=== PATIENT | female | born 1955 | race African-American/Black ===

== ENCOUNTER 2016-12-17 11:42 | Emergency (ER) | payer OTHER, MEDICAID ==
[~2016-12-17] VITALS: Ht 154.9 cm; Wt 109.8 kg
[~2016-12-17 11:42] MED LIST: ATOR10TA PO; CARI-277 PO; CARV25TA55 PO; CINA60TA PO; DOXE50CA57 PO; LEVO200T45 PO; NOR10T PO; PANT40TA2 PO; QUET100T38 PO; SEVE800T8 PO; TRIA25CA PO; [UNRECOGNIZED DRUG - OTHER]
[2016-12-17 11:53] VITALS: BP 113/73
[2016-12-17] MEDS ORDERED: KETOROLAC TROMETH 60MG/2ML VIAL IM ONE (15:15)
[2016-12-17] MEDS ORDERED: FLUORESCEIN SOD 1 MG TEST STRIP LEFTEYE ONE (16:00)
== END 2016-12-17 16:20 | disposition home or self-care (01) ==
LOC: ER 11:42
DX: G89.29 Other chronic pain (principal); M54.5 Low back pain; R07.81 Pleurodynia; M19.90 Unspecified osteoarthritis, unspecified site; E11.22 Type 2 diabetes mellitus with diabetic chronic kidney disease; I13.2 Hypertensive heart and chronic kidney disease with heart failure and with stage 5 chronic kidney disease, or end stage renal disease; I50.9 Heart failure, unspecified; N18.6 End stage renal disease; Z99.2 Dependence on renal dialysis; J44.9 Chronic obstructive pulmonary disease, unspecified; E78.5 Hyperlipidemia, unspecified; E07.9 Disorder of thyroid, unspecified; Z79.899 Other long term (current) drug therapy
CPT/HCPCS: 71101; 93005; 96372; 99284; J1885

== ENCOUNTER 2017-07-13 09:15 | Inpatient (IN) | payer OTHER, MEDICAID ==
[~2017-07-13] VITALS: Ht 162.6 cm; Wt 100.7 kg
[2017-07-13 19:59] LABS: Basophils # (auto) 0 uL; Basophils % (auto) 0.4 % (0.0-2.0); Eosinophils # (auto) 0.3 uL; Eosinophils % (auto) 4.3 % (0.0-7.0); Hemoglobin 8.8 g/dL (12.2-16.2); Lymphocytes # (auto) 2.4 uL; Lymphocytes % (auto) 38.1 % (10.0-50.0); Mean Corpuscular Hemoglobin 31.6 pg (28.0-32.0); Mean Corpuscular Hgb Conc. 31.6 g/dL (32.0-36.0); Monocytes # (auto) 0.8 uL; Monocytes % (auto) 12.8 % (0.0-12.0); Neutrophils # (auto) 2.8 uL; Neutrophils % (auto) 44.4 % (37.0-80.0); Nucleated Red Blood Cells % 0.1 %; Platelet Count (auto) 201 10^3/uL (140-450); Red Cell Distribution Width 18.2 % (11.8-14.3); White Blood Cell 6.3 10^3/uL (4.4-10.8)
[2017-07-13 20:22] LABS: Albumin 2.6 g/dL (3.4-5.0); Bilirubin, Total 0.2 mg/dL (0.2-1.0); Calcium 9.1 mg/dL (8.5-10.1); Potassium 3.6 mmol/L (3.5-5.1); Total Protein 6.3 g/dL (6.4-8.2)
[2017-07-13] MEDS ORDERED: HYDROcodone-ACET 10/325MG TAB PO ONE (21:15)
[2017-07-14] VITALS (7 sets, daily range): BP systolic 110–146; BP diastolic 61–95
[2017-07-14] MEDS ORDERED: ACETAMINOPHEN 500 MG TAB PO PRN
[2017-07-14] MEDS ORDERED: ONDANSETRON HCL 4 MG/2 ML VIAL IV PRN
[2017-07-14] MEDS ORDERED: QUET25TA37 PO (00:34)
[2017-07-14] MEDS ORDERED: FAM20T PO (00:42)
[2017-07-14] MEDS ORDERED: ALPR0.5T PO (00:42)
[2017-07-14] MEDS ORDERED: LISI-646 PO (00:42)
[2017-07-14] MEDS ORDERED: MIDO10TA PO (00:42)
[2017-07-14] MEDS ORDERED: DOCU-94 PO (00:42)
[2017-07-14] MEDS ORDERED: SEVE800T PO (00:42)
[2017-07-14] MEDS: ALPRAZolam 0.5 MG TAB PO PRN ×2 (01:07→11:05)
[2017-07-14] MEDS: HYDROmorphone HCL 2 MG/ML VL IV PRN ×5 (02:18→19:54)
[2017-07-14] MEDS: SEVELAMER 800 MG TAB PO SCH ×3 (08:35→18:02)
[2017-07-14] MEDS: HYDROcodone-ACET 5/325MG TAB PO PRN ×3 (08:39→21:54)
[2017-07-14] MEDS ORDERED: EPOETIN ALFA 10,000 UNIT/1 ML VIAL IV ONE (09:30)
[2017-07-14] MEDS ORDERED: SODIUM CHL 0.9% 1000 ML BAG XX ONE (09:30)
[2017-07-14 10:18] LABS: Partial Thromboplastin Time 26.1 sec (22.64-33.71); Prothrombin Time 10.9 sec (9.37-12.3)
[2017-07-14] MEDS: LISINOPRIL 20 MG TAB PO SCH (10:57)
[2017-07-14] MEDS: MIDODRINE HCL 10 MG TAB PO SCH (10:58)
[2017-07-14] MEDS: PANTOPRAZOLE 40 MG TAB PO SCH (10:58)
[2017-07-14] MEDS: CARVEDILOL 12.5 MG TAB PO SCH ×2 (10:59→21:48)
[2017-07-14] MEDS ORDERED: VANCOMYCIN 1GM/250ML 250 ML IV ONE (14:15)
[2017-07-14] MEDS: QUEtiapine FUMARATE 25 MG TAB PO SCH (21:48)
[2017-07-15 05:03] VITALS: BP 126/79
[2017-07-15] MEDS: HYDROmorphone HCL 2 MG/ML VL IV PRN ×4 (06:25→22:44)
[2017-07-15 07:13] LABS: Basophils # (auto) 0 uL; Basophils % (auto) 0.7 % (0.0-2.0); Eosinophils # (auto) 0.2 uL; Eosinophils % (auto) 4.1 % (0.0-7.0); Hematocrit 25.9 % (36.0-46.0); Hemoglobin 8.5 g/dL (12.2-16.2); Lymphocytes # (auto) 1.8 uL; Lymphocytes % (auto) 33.9 % (10.0-50.0); Mean Corpuscular Hemoglobin 32.2 pg (28.0-32.0); Mean Corpuscular Hgb Conc. 32.9 g/dL (32.0-36.0); Mean Corpuscular Volume 97.8 fL (80.0-100.0); Monocytes # (auto) 0.8 uL; Monocytes % (auto) 14.4 % (0.0-12.0); Neutrophils # (auto) 2.4 uL; Neutrophils % (auto) 46.9 % (37.0-80.0); Platelet Count (auto) 179 10^3/uL (140-450); Red Blood Cells 2.65 10^6/uL (4.0-5.20); White Blood Cell 5.2 10^3/uL (4.4-10.8)
[2017-07-15 07:26] LABS: BUN/Creatinine Ratio 3.2; Calcium 9.2 mg/dL (8.5-10.1); Phosphorus 4.4 mg/dL (2.5-4.90); Potassium 3.6 mmol/L (3.5-5.1)
[2017-07-15] MEDS: SEVELAMER 800 MG TAB PO SCH ×3 (08:00→19:02)
[2017-07-15] MEDS: HYDROcodone-ACET 5/325MG TAB PO PRN (08:27)
[2017-07-15 09:00] VITALS: BP 147/70
[2017-07-15] MEDS ORDERED: fentaNYL CITRATE 100 MCG/2 ML VL ONE ×4 (09:52→13:39)
[2017-07-15] MEDS ORDERED: MIDAZOLAM HCL 1MG/1ML-2 ML VIAL ONE (09:53)
[2017-07-15] MEDS ORDERED: IOHEXOL 350 MG/ML 100ML IJ ONE ×2 (09:54→11:55)
[2017-07-15] MEDS ORDERED: LIDOCAINE 2%HCL (LOCAL ANESTH.) INJ 20ML MDV ONE ×2 (09:54→11:55)
[2017-07-15] MEDS ORDERED: CATHFLO ACTIVASE (ALTEPLASE) 2 MG VIAL IV ONE ×3 (10:15→13:45)
[2017-07-15] MEDS ORDERED: PROPOFOL 10 MG/ML 20 ML IV ONE (12:36)
[2017-07-15] MEDS ORDERED: SODIUM CHL 0.9% 1000 ML BAG XX ONE (12:45)
[2017-07-15] MEDS ORDERED: EPOETIN ALFA 10,000 UNIT/1 ML VIAL IV ONE (12:45)
[2017-07-15] MEDS ORDERED: HEPARIN 1,000 UNITS/ml 1ML VIAL ONE ×2 (12:58→13:59)
[2017-07-15] MEDS ORDERED: HYDROmorphone HCL 2 MG/ML VL ONE (14:50)
[2017-07-15] MEDS ORDERED: hydrALAZINE HCL 20 MG/ML VL IV PRN (15:00)
[2017-07-15] MEDS ORDERED: ePHEDrine SULFATE 50 MG/ML AMP IV PRN (15:00)
[2017-07-15] MEDS ORDERED: ONDANSETRON HCL 4 MG/2 ML VIAL IV ONE (15:00)
[2017-07-15] MEDS: CARVEDILOL 12.5 MG TAB PO SCH ×2 (16:31→22:44)
[2017-07-15] MEDS: PANTOPRAZOLE 40 MG TAB PO SCH (16:32)
[2017-07-15] MEDS: MIDODRINE HCL 10 MG TAB PO SCH (16:32)
[2017-07-15] MEDS: LISINOPRIL 20 MG TAB PO SCH (16:32)
[2017-07-15] MEDS: ASCORBIC ACID 500 MG TAB PO SCH ×2 (16:33→22:43)
[2017-07-15] MEDS: B-COMPLEX W/ C & FOLIC ACID(NEPHROVITE TAB) PO SCH (16:33)
[2017-07-15 17:00] VITALS: BP 139/71
[2017-07-15 20:00] VITALS: BP 148/71
[2017-07-15 22:17] VITALS: BP 117/50
[2017-07-15] MEDS: QUEtiapine FUMARATE 25 MG TAB PO SCH (22:43)
[2017-07-16] VITALS (7 sets, daily range): BP systolic 119–145; BP diastolic 65–88
[2017-07-16] MEDS: HYDROmorphone HCL 2 MG/ML VL IV PRN ×4 (04:48→20:29)
[2017-07-16 07:18] LABS: BUN/Creatinine Ratio 3.6; Calcium 9.4 mg/dL (8.5-10.1); Potassium 3.9 mmol/L (3.5-5.1)
[2017-07-16] MEDS: SEVELAMER 800 MG TAB PO SCH ×3 (08:41→18:34)
[2017-07-16] MEDS: MIDODRINE HCL 10 MG TAB PO SCH (10:48)
[2017-07-16] MEDS: CARVEDILOL 12.5 MG TAB PO SCH ×2 (10:48→22:15)
[2017-07-16] MEDS: B-COMPLEX W/ C & FOLIC ACID(NEPHROVITE TAB) PO SCH (10:48)
[2017-07-16] MEDS: PANTOPRAZOLE 40 MG TAB PO SCH (10:49)
[2017-07-16] MEDS: ASCORBIC ACID 500 MG TAB PO SCH ×2 (10:49→22:14)
[2017-07-16] MEDS: LISINOPRIL 20 MG TAB PO SCH (10:50)
[2017-07-16] MEDS: DOCUSATE SOD 100 MG CAP PO SCH ×2 (13:40→22:14)
[2017-07-16] MEDS: HYDROcodone-ACET 5/325MG TAB PO PRN ×2 (16:32→22:19)
[2017-07-16] MEDS: QUEtiapine FUMARATE 25 MG TAB PO SCH (22:14)
[2017-07-17] VITALS (7 sets, daily range): BP systolic 113–152; BP diastolic 69–92
[2017-07-17] MEDS: HYDROmorphone HCL 2 MG/ML VL IV PRN ×4 (03:58→21:44)
[2017-07-17] MEDS: SEVELAMER 800 MG TAB PO SCH ×3 (08:19→18:46)
[2017-07-17] MEDS: B-COMPLEX W/ C & FOLIC ACID(NEPHROVITE TAB) PO SCH (09:35)
[2017-07-17] MEDS: DOCUSATE SOD 100 MG CAP PO SCH ×2 (09:35→21:43)
[2017-07-17] MEDS: MIDODRINE HCL 10 MG TAB PO SCH (09:35)
[2017-07-17] MEDS: CARVEDILOL 12.5 MG TAB PO SCH ×2 (09:35→21:44)
[2017-07-17] MEDS: LISINOPRIL 20 MG TAB PO SCH (09:36)
[2017-07-17] MEDS: ASCORBIC ACID 500 MG TAB PO SCH ×2 (09:36→21:43)
[2017-07-17] MEDS: PANTOPRAZOLE 40 MG TAB PO SCH (09:36)
[2017-07-17] MEDS: ALPRAZolam 0.5 MG TAB PO PRN (16:52)
[2017-07-17] MEDS: QUEtiapine FUMARATE 25 MG TAB PO SCH (21:43)
[2017-07-18] MEDS: HYDROmorphone HCL 2 MG/ML VL IV PRN ×4 (02:56→23:20)
[2017-07-18 05:00] VITALS: BP 119/69
[2017-07-18 06:55] LABS: Calcium 9.4 mg/dL (8.5-10.1)
[2017-07-18 07:00] LABS: INR 0.94 (0.9-1.15); Partial Thromboplastin Time 24.7 sec (22.64-33.71); Prothrombin Time 10.2 sec (9.37-12.3)
[2017-07-18] MEDS: SEVELAMER 800 MG TAB PO SCH ×3 (08:00→18:18)
[2017-07-18 08:04] VITALS: BP 109/72
[2017-07-18] MEDS: LISINOPRIL 20 MG TAB PO SCH (09:40)
[2017-07-18] MEDS: PANTOPRAZOLE 40 MG TAB PO SCH (09:40)
[2017-07-18] MEDS: MIDODRINE HCL 10 MG TAB PO SCH (09:41)
[2017-07-18] MEDS: B-COMPLEX W/ C & FOLIC ACID(NEPHROVITE TAB) PO SCH (09:41)
[2017-07-18] MEDS: CARVEDILOL 12.5 MG TAB PO SCH ×2 (09:41→21:57)
[2017-07-18] MEDS: DOCUSATE SOD 100 MG CAP PO SCH ×2 (09:41→21:56)
[2017-07-18] MEDS: ASCORBIC ACID 500 MG TAB PO SCH ×2 (09:42→21:56)
[2017-07-18 11:45] VITALS: BP 135/80
[2017-07-18 16:57] VITALS: BP 160/89
[2017-07-18 20:00] VITALS: BP 149/90
[2017-07-18] MEDS: QUEtiapine FUMARATE 25 MG TAB PO SCH (21:57)
[2017-07-18 22:00] VITALS: BP 149/90
[2017-07-19] MEDS: HYDROmorphone HCL 2 MG/ML VL IV PRN ×3 (04:14→22:43)
[2017-07-19 05:00] VITALS: BP 136/76
[2017-07-19 07:56] VITALS: BP 158/87
[2017-07-19] MEDS: SEVELAMER 800 MG TAB PO SCH ×3 (08:00→19:01)
[2017-07-19 09:37] LABS: Basophils # (auto) 0.1 uL; Basophils % (auto) 1.6 % (0.0-2.0); Eosinophils # (auto) 0.2 uL; Mean Corpuscular Volume 96.9 fL (80.0-100.0); Monocytes # (auto) 1.1 uL; Red Cell Distribution Width 17.7 % (11.8-14.3)
[2017-07-19 09:39] LABS: Hematocrit 25.6 % (36.0-46.0); Hemoglobin 8.5 g/dL (12.2-16.2); Lymphocytes # (auto) 1.7 uL; Lymphocytes % (auto) 25.2 % (10.0-50.0); Monocytes % (auto) 16.5 % (0.0-12.0); Neutrophils # (auto) 3.7 uL; Neutrophils % (auto) 53.7 % (37.0-80.0); Platelet Count (auto) 205 10^3/uL (140-450); Red Blood Cells 2.65 10^6/uL (4.0-5.20); White Blood Cell 6.9 10^3/uL (4.4-10.8)
[2017-07-19] MEDS: CARVEDILOL 12.5 MG TAB PO SCH ×2 (09:50→22:42)
[2017-07-19] MEDS: LISINOPRIL 20 MG TAB PO SCH (09:51)
[2017-07-19] MEDS: PANTOPRAZOLE 40 MG TAB PO SCH (10:00)
[2017-07-19] MEDS: B-COMPLEX W/ C & FOLIC ACID(NEPHROVITE TAB) PO SCH (10:00)
[2017-07-19] MEDS: ASCORBIC ACID 500 MG TAB PO SCH ×2 (10:00→22:43)
[2017-07-19] MEDS: DOCUSATE SOD 100 MG CAP PO SCH ×2 (10:00→22:41)
[2017-07-19] MEDS: MIDODRINE HCL 10 MG TAB PO SCH (10:00)
[2017-07-19] MEDS: ALPRAZolam 0.5 MG TAB PO PRN (11:31)
[2017-07-19 11:34] VITALS: BP 118/77
[2017-07-19] MEDS ORDERED: MIDAZOLAM HCL 1MG/1ML-2 ML VIAL ONE ×3 (13:16→13:43)
[2017-07-19] MEDS ORDERED: METOCLOPRAMIDE HCL 5MG/ml INJ 2ml VIAL ONE (13:27)
[2017-07-19] MEDS ORDERED: PROPOFOL 10 MG/ML 20 ML IV ONE (13:30)
[2017-07-19] MEDS ORDERED: HEPARIN SODIUM (PORCINE) 5000 UNITS/ML 1ML VIAL ONE ×2 (13:31→14:08)
[2017-07-19] MEDS ORDERED: LIDOCAINE 1% HCL (LOCAL ANESTH.) INJ 20ML MDV ONE ×2 (13:35→14:14)
[2017-07-19] MEDS ORDERED: fentaNYL CITRATE 100 MCG/2 ML VL ONE (13:38)
[2017-07-19] MEDS ORDERED: ceFAZolin 1GM VL ONE (13:40)
[2017-07-19] MEDS ORDERED: FLUMAZENIL 0.1 MG/ML INJ 10ML MDV IV ONE (14:45)
[2017-07-19] MEDS ORDERED: NALOXONE HCL 0.4 MG/ML VIAL IV PRN (14:45)
[2017-07-19] MEDS ORDERED: hydrALAZINE HCL 20 MG/ML VL IV PRN (14:45)
[2017-07-19] MEDS: HYDROcodone-ACET 5/325MG TAB PO PRN (15:28)
[2017-07-19 16:54] VITALS: BP 167/93
[2017-07-19] MEDS ORDERED: HEPARIN 1,000 UNITS/ml 1ML VIAL IV ONE (20:30)
[2017-07-19] MEDS ORDERED: EPOETIN ALFA 10,000 UNIT/1 ML VIAL IV ONE (20:30)
[2017-07-19 22:00] VITALS: BP 135/95
[2017-07-19] MEDS: QUEtiapine FUMARATE 25 MG TAB PO SCH (22:42)
[2017-07-20] MEDS: HYDROmorphone HCL 2 MG/ML VL IV PRN ×3 (02:47→13:09)
[2017-07-20 05:00] VITALS: BP 115/68
[2017-07-20 07:57] VITALS: BP 122/62
[2017-07-20] MEDS: SEVELAMER 800 MG TAB PO SCH ×2 (09:00→13:11)
[2017-07-20] MEDS: B-COMPLEX W/ C & FOLIC ACID(NEPHROVITE TAB) PO SCH (09:30)
[2017-07-20] MEDS: ASCORBIC ACID 500 MG TAB PO SCH (09:30)
[2017-07-20] MEDS: DOCUSATE SOD 100 MG CAP PO SCH (09:30)
[2017-07-20] MEDS: MIDODRINE HCL 10 MG TAB PO SCH (09:31)
[2017-07-20] MEDS: PANTOPRAZOLE 40 MG TAB PO SCH (09:31)
[2017-07-20] MEDS: LISINOPRIL 20 MG TAB PO SCH (09:31)
[2017-07-20] MEDS: CARVEDILOL 12.5 MG TAB PO SCH (09:32)
[2017-07-20 11:50] VITALS: BP 102/49
== END 2017-07-20 16:09 | DRG 252 ==
LOC: EDBD 09:15 → ER 09:15 → OVERFLOW 09:16 → EAST 07-14 01:13
PROVIDERS: ADMIT Nurse Practitioner Family; ATTEND Hospitalist
PROC: 03CY3ZZ Extirpation of Matter from Upper Artery, Percutaneous Approach (ICD-10-PCS; 2017-07-15)
PROC: 057Y3ZZ Dilation of Upper Vein, Percutaneous Approach (ICD-10-PCS; 2017-07-15)
PROC: B51W1ZZ Fluoroscopy of Dialysis Shunt/Fistula using Low Osmolar Contrast (ICD-10-PCS; principal; 2017-07-15 12:25)
PROC: 05HM33Z Insertion of Infusion Device into Right Internal Jugular Vein, Percutaneous Approach (ICD-10-PCS; 2017-07-19)
PROC: B5131ZA Fluoroscopy of Right Jugular Veins using Low Osmolar Contrast, Guidance (ICD-10-PCS; 2017-07-19)
PROC: 5A1D70Z Performance of Urinary Filtration, Intermittent, Less than 6 Hours Per Day (ICD-10-PCS; 2017-07-19)
DX: T82.510A Breakdown (mechanical) of surgically created arteriovenous fistula, initial encounter (principal); N18.6 End stage renal disease; I13.2 Hypertensive heart and chronic kidney disease with heart failure and with stage 5 chronic kidney disease, or end stage renal disease; T82.868A Thrombosis due to vascular prosthetic devices, implants and grafts, initial encounter; I50.22 Chronic systolic (congestive) heart failure; D63.1 Anemia in chronic kidney disease; E03.9 Hypothyroidism, unspecified; F31.9 Bipolar disorder, unspecified; G89.4 Chronic pain syndrome; I25.10 Atherosclerotic heart disease of native coronary artery without angina pectoris; J44.9 Chronic obstructive pulmonary disease, unspecified; M47.816 Spondylosis without myelopathy or radiculopathy, lumbar region; Y71.2 Prosthetic and other implants, materials and accessory cardiovascular devices associated with adverse incidents; Y83.2 Surgical operation with anastomosis, bypass or graft as the cause of abnormal reaction of the patient, or of later complication, without mention of misadventure at the time of the procedure; E66.9 Obesity, unspecified; K21.9 Gastro-esophageal reflux disease without esophagitis; Z79.899 Other long term (current) drug therapy; Z82.49 Family history of ischemic heart disease and other diseases of the circulatory system; Z99.2 Dependence on renal dialysis
CPT/HCPCS: 36415; 71045; 72148; 73060; 76000; 76001; 76937; 80048; 80053; 84100; 85025; 85610; 85652; 85730; 86141; 87081; 90937; 93005; 93970; 97110; 97530; 99152; A4565; J0690; J0885; J2001; J2250; J2704

== ENCOUNTER 2017-09-14 20:29 | Emergency (ER) | payer MEDICARE, MEDICAID ==
[~2017-09-14 20:29] MED LIST changes: +ALPR0.5T PO; +DOCU-94 PO; +FAM20T PO; +LISI-646 PO; +MIDO10TA PO; -QUET100T38 PO; +QUET25TA37 PO; +SEVE800T PO; -TRIA25CA PO; -[UNRECOGNIZED DRUG - OTHER]
[2017-09-15] MEDS ORDERED: HYDROcodone-ACET 10/325MG TAB PO ONE (04:30)
[2017-09-15 06:41] VITALS: BP 171/82
[2017-09-15] MEDS ORDERED: LIDOCAINE 1% HCL (LOCAL ANESTH.) INJ 20ML MDV ONE (07:25)
[2017-09-15] MEDS ORDERED: cloNIDine HCL 0.1 MG TAB PO ONE (07:30)
== END 2017-09-15 10:37 | disposition home or self-care (01) ==
LOC: EDBD 20:29 → ER 20:32
DX: R07.9 Chest pain, unspecified (principal); Z48.01 Encounter for change or removal of surgical wound dressing; M19.90 Unspecified osteoarthritis, unspecified site; I13.2 Hypertensive heart and chronic kidney disease with heart failure and with stage 5 chronic kidney disease, or end stage renal disease; I50.9 Heart failure, unspecified; N18.6 End stage renal disease; J44.9 Chronic obstructive pulmonary disease, unspecified; E07.9 Disorder of thyroid, unspecified; E78.5 Hyperlipidemia, unspecified; Z79.899 Other long term (current) drug therapy
CPT/HCPCS: 99283; J2001

== ENCOUNTER 2018-03-03 09:45 | Inpatient (IN) | payer MEDICARE, MEDICAID ==
[~2018-03-03] VITALS: Ht 162.6 cm; Wt 77.7 kg
[2018-03-03 11:14] LABS: Basophils # (auto) 0 uL; Basophils % (auto) 0.4 % (0.0-2.0); Eosinophils # (auto) 0 uL; Hematocrit 39.8 % (36.0-46.0); Hemoglobin 12.7 g/dL (12.2-16.2); Lymphocytes # (auto) 1.2 uL; Lymphocytes % (auto) 12.9 % (10.0-50.0); Mean Corpuscular Hemoglobin 27.6 pg (28.0-32.0); Mean Corpuscular Volume 86.3 fL (80.0-100.0); Monocytes % (auto) 10.5 % (0.0-12.0); Neutrophils # (auto) 7.3 uL; Neutrophils % (auto) 76.2 % (37.0-80.0); Nucleated Red Blood Cells % 0.1 %; Platelet Count (auto) 330 10^3/uL (140-450); Red Blood Cells 4.61 10^6/uL (4.0-5.20); White Blood Cell 9.6 10^3/uL (4.4-10.8)
[2018-03-03 11:45] LABS: Albumin 2.7 g/dL (3.4-5.0); BUN/Creatinine Ratio 3.2; Bilirubin, Total 0.4 mg/dL (0.2-1.0); Calcium 8.6 mg/dL (8.5-10.1); Magnesium 2.2 mg/dL (1.6-2.6); Total Protein 8.5 g/dL (6.4-8.2)
[2018-03-03] MEDS ORDERED: ENOXAPARIN SOD 80 MG/0.8ML SYRINGE SC ONE (12:15)
[2018-03-03] MEDS ORDERED: METOPROLOL TARTRATE 1MG/1ML-5ML VIAL IV ONE ×2 (12:19→12:30)
[2018-03-03] MEDS ORDERED: IODIXANOL 320MG/ML 100ML BTL IV ONE (12:26)
[2018-03-03] MEDS ORDERED: LIDOCAINE 2%HCL (LOCAL ANESTH.) INJ 10ml MDV ONE (12:26)
[2018-03-03] MEDS ORDERED: HEPARIN 1,000 UNITS/ml 1ML VIAL IV ONE (12:30)
[2018-03-03] MEDS ORDERED: ANGIOMAX 250 MG VIAL IV ONE (12:36)
[2018-03-03] MEDS ORDERED: fentaNYL CITRATE 100 MCG/2 ML VL ONE (12:37)
[2018-03-03] MEDS ORDERED: SODIUM CHL 0.9% 0 ML ONE (12:37)
[2018-03-03] MEDS ORDERED: MIDAZOLAM HCL 1MG/1ML-2 ML VIAL ONE (12:37)
[2018-03-03] MEDS ORDERED: MORPHINE SULF INJ 2 MG/ML SYRINGE 1ML IV PRN (13:45)
[2018-03-03] MEDS ORDERED: NITROGLYCERIN 0.4 MG SL TAB SL PRN (13:45)
[2018-03-03] MEDS ORDERED: cloNIDine HCL 0.1 MG TAB PO ONE (14:15)
[2018-03-03] MEDS ORDERED: ONDANSETRON HCL 4 MG/2 ML VIAL ONE (14:29)
[2018-03-03] MEDS: ONDANSETRON HCL 4 MG/2 ML VIAL IV PRN (14:34)
[2018-03-03] MEDS ORDERED: CARVEDILOL 12.5 MG TAB PO ONE (15:00)
[2018-03-03] MEDS ORDERED: cloNIDine HCL 0.1 MG TAB PO PRN (15:00)
[2018-03-03] MEDS ORDERED: CARVEDILOL 12.5 MG TAB ONE (15:03)
[2018-03-03 15:30] VITALS: BP_SYST 155; BP_SYST 168; BP_DIAS 109; BP_DIAS 121
[2018-03-03] MEDS ORDERED: OPTISON 3ml Vial for INJ IV ONE (16:36)
[2018-03-03 16:52] VITALS: BP 143/102
[2018-03-03] MEDS: SEVELAMER 800 MG TAB PO SCH (18:35)
[2018-03-03 20:00] VITALS: BP 104/64
[2018-03-03] MEDS: CARVEDILOL 12.5 MG TAB PO SCH (21:34)
[2018-03-03] MEDS: ATORVASTATIN 20 MG TAB PO SCH (21:35)
[2018-03-03] MEDS: ALPRAZolam 0.5 MG TAB PO PRN (21:35)
[2018-03-03 22:00] VITALS: BP 104/64
[2018-03-03] MEDS ORDERED: CARVEDILOL 3.125 MG TAB PO SCH (22:00)
[2018-03-04] MEDS: ONDANSETRON HCL 4 MG/2 ML VIAL IV PRN ×2 (03:29→22:44)
[2018-03-04] MEDS: MORPHINE SULF INJ 2 MG/ML SYRINGE 1ML IV PRN ×2 (03:46→22:44)
[2018-03-04 05:23] VITALS: BP 147/92
[2018-03-04 06:08] LABS: Basophils # (auto) 0 uL; Basophils % (auto) 0.6 % (0.0-2.0); Eosinophils # (auto) 0 uL; Eosinophils % (auto) 0.2 % (0.0-7.0); Hematocrit 36.2 % (36.0-46.0); Hemoglobin 11.7 g/dL (12.2-16.2); Lymphocytes # (auto) 1.7 uL; Mean Corpuscular Hemoglobin 27.6 pg (28.0-32.0); Mean Corpuscular Hgb Conc. 32.3 g/dL (32.0-36.0); Mean Corpuscular Volume 85.6 fL (80.0-100.0); Monocytes % (auto) 14.2 % (0.0-12.0); Neutrophils # (auto) 4.1 uL; Platelet Count (auto) 292 10^3/uL (140-450); Red Blood Cells 4.23 10^6/uL (4.0-5.20); Red Cell Distribution Width 19.3 % (11.8-14.3); White Blood Cell 6.8 10^3/uL (4.4-10.8)
[2018-03-04 06:36] LABS: Calcium 8.8 mg/dL (8.5-10.1); Potassium 3.6 mmol/L (3.5-5.1)
[2018-03-04 06:38] LABS: BUN/Creatinine Ratio 3.4
[2018-03-04] MEDS: LEVOTHYROXINE SODIUM 100 MCG TAB PO SCH (06:38)
[2018-03-04] MEDS: SEVELAMER 800 MG TAB PO SCH ×3 (08:37→18:42)
[2018-03-04 09:00] VITALS: BP 147/96
[2018-03-04] MEDS: LISINOPRIL 20 MG TAB PO SCH (09:50)
[2018-03-04] MEDS: ALLOPURINOL 100 MG TAB PO SCH (09:50)
[2018-03-04] MEDS: PANTOPRAZOLE 40 MG TAB PO SCH (09:51)
[2018-03-04] MEDS: CARVEDILOL 12.5 MG TAB PO SCH ×2 (09:51→21:53)
[2018-03-04] MEDS ORDERED: LISINOPRIL 5 MG TAB PO SCH (10:00)
[2018-03-04] MEDS ORDERED: ALLOPURINOL 300 MG TAB PO SCH (10:00)
[2018-03-04 13:00] VITALS: BP 122/81
[2018-03-04 17:00] VITALS: BP 148/96
[2018-03-04] MEDS: B-COMPLEX W/ C & FOLIC ACID(NEPHROVITE TAB) PO SCH (18:42)
[2018-03-04] MEDS: ALPRAZolam 0.5 MG TAB PO PRN (18:49)
[2018-03-04 20:00] VITALS: BP 136/89
[2018-03-04] MEDS: ATORVASTATIN 20 MG TAB PO SCH (21:53)
[2018-03-04] MEDS: ASCORBIC ACID 500 MG TAB PO SCH (21:54)
[2018-03-04] MEDS: Pro-Stat SF 30ml Vanilla PO SCH (21:54)
[2018-03-04 22:00] VITALS: BP 136/89
[2018-03-05] VITALS (7 sets, daily range): BP systolic 85–138; BP diastolic 55–87
[2018-03-05] MEDS: LEVOTHYROXINE SODIUM 100 MCG TAB PO SCH (06:47)
[2018-03-05] MEDS: ONDANSETRON HCL 4 MG/2 ML VIAL IV PRN (07:49)
[2018-03-05] MEDS: SEVELAMER 800 MG TAB PO SCH ×3 (07:49→17:40)
[2018-03-05] MEDS: Pro-Stat SF 30ml Vanilla PO SCH ×2 (10:00→21:18)
[2018-03-05] MEDS: LISINOPRIL 20 MG TAB PO SCH (10:18)
[2018-03-05] MEDS: PANTOPRAZOLE 40 MG TAB PO SCH (10:18)
[2018-03-05] MEDS: ASCORBIC ACID 500 MG TAB PO SCH ×2 (10:18→21:18)
[2018-03-05] MEDS: B-COMPLEX W/ C & FOLIC ACID(NEPHROVITE TAB) PO SCH (10:18)
[2018-03-05] MEDS: ALLOPURINOL 100 MG TAB PO SCH (10:18)
[2018-03-05] MEDS: CARVEDILOL 12.5 MG TAB PO SCH ×2 (10:19→21:18)
[2018-03-05] MEDS: MORPHINE SULF INJ 2 MG/ML SYRINGE 1ML IV PRN ×2 (10:25→21:15)
[2018-03-05] MEDS: ATORVASTATIN 20 MG TAB PO SCH (21:18)
[2018-03-05] MEDS: ALPRAZolam 0.5 MG TAB PO PRN (21:27)
[2018-03-05] MEDS: HYDROcodone-ACET 10/325MG TAB PO PRN (23:13)
[2018-03-06] VITALS (7 sets, daily range): BP systolic 83–120; BP diastolic 45–87
[2018-03-06] MEDS: MORPHINE SULF INJ 2 MG/ML SYRINGE 1ML IV PRN ×3 (02:55→17:56)
[2018-03-06] MEDS: HYDROcodone-ACET 10/325MG TAB PO PRN ×2 (04:32→14:10)
[2018-03-06] MEDS: LEVOTHYROXINE SODIUM 100 MCG TAB PO SCH (06:22)
[2018-03-06] MEDS: SEVELAMER 800 MG TAB PO SCH ×3 (09:19→17:56)
[2018-03-06] MEDS: ASCORBIC ACID 500 MG TAB PO SCH (09:20)
[2018-03-06] MEDS: B-COMPLEX W/ C & FOLIC ACID(NEPHROVITE TAB) PO SCH (09:20)
[2018-03-06] MEDS: LISINOPRIL 20 MG TAB PO SCH (09:20)
[2018-03-06] MEDS: PANTOPRAZOLE 40 MG TAB PO SCH (09:21)
[2018-03-06] MEDS: CARVEDILOL 12.5 MG TAB PO SCH (09:21)
[2018-03-06] MEDS: ALLOPURINOL 100 MG TAB PO SCH (09:21)
[2018-03-06] MEDS: Pro-Stat SF 30ml Vanilla PO SCH (09:22)
[2018-03-06] MEDS: ONDANSETRON HCL 4 MG/2 ML VIAL IV PRN ×2 (09:23→17:56)
[2018-03-06 10:53] LABS: Basophils # (auto) 0 uL; Basophils % (auto) 0.3 % (0.0-2.0); Eosinophils # (auto) 0.1 uL; Eosinophils % (auto) 1.7 % (0.0-7.0); Hematocrit 35.7 % (36.0-46.0); Hemoglobin 11.3 g/dL (12.2-16.2); Lymphocytes # (auto) 2.1 uL; Lymphocytes % (auto) 33.5 % (10.0-50.0); Mean Corpuscular Hemoglobin 27.6 pg (28.0-32.0); Mean Corpuscular Hgb Conc. 31.7 g/dL (32.0-36.0); Mean Corpuscular Volume 87.2 fL (80.0-100.0); Monocytes % (auto) 16.5 % (0.0-12.0); Nucleated Red Blood Cells % 0.1 %; Platelet Count (auto) 266 10^3/uL (140-450); Red Cell Distribution Width 19.3 % (11.8-14.3); White Blood Cell 6.1 10^3/uL (4.4-10.8)
[2018-03-06 11:19] LABS: Albumin 2.2 g/dL (3.4-5.0); BUN/Creatinine Ratio 3.8; Bilirubin, Total 0.2 mg/dL (0.2-1.0); Calcium 7.6 mg/dL (8.5-10.1); Potassium 3.2 mmol/L (3.5-5.1); Total Protein 6.7 g/dL (6.4-8.2)
[2018-03-06] MEDS ORDERED: SODIUM CHL 0.9% 1000 ML BAG XX ONE (12:00)
[2018-03-06] MEDS ORDERED: HEPARIN SODIUM (PORCINE) 5000 UNITS/ML 1ML VIAL IV ONE (16:15)
[2018-03-06] MEDS ORDERED: ALBUMIN 25% 100 ML IV ONE (16:30)
[2018-03-06] MEDS: ALPRAZolam 0.5 MG TAB PO PRN (18:04)
== END 2018-03-06 19:03 | disposition home or self-care (01) | DRG 280 ==
LOC: ER 09:45 → EDBD 09:45 → CATH 09:46 → TELE-CENTR 09:47
PROVIDERS: ADMIT Internal Medicine; ATTEND Internal Medicine
PROC: 4A023N7 Measurement of Cardiac Sampling and Pressure, Left Heart, Percutaneous Approach (ICD-10-PCS; principal; 2018-03-03)
PROC: B2111ZZ Fluoroscopy of Multiple Coronary Arteries using Low Osmolar Contrast (ICD-10-PCS; 2018-03-03)
PROC: B2151ZZ Fluoroscopy of Left Heart using Low Osmolar Contrast (ICD-10-PCS; 2018-03-03)
PROC: 0JH63XZ Insertion of Tunneled Vascular Access Device into Chest Subcutaneous Tissue and Fascia, Percutaneous Approach (ICD-10-PCS; 2018-03-03)
PROC: 02H633Z Insertion of Infusion Device into Right Atrium, Percutaneous Approach (ICD-10-PCS; 2018-03-03)
DX: I21.4 Non-ST elevation (NSTEMI) myocardial infarction (principal); N18.6 End stage renal disease; I50.43 Acute on chronic combined systolic (congestive) and diastolic (congestive) heart failure; I13.2 Hypertensive heart and chronic kidney disease with heart failure and with stage 5 chronic kidney disease, or end stage renal disease; E46 Unspecified protein-calorie malnutrition; I42.9 Cardiomyopathy, unspecified; D63.1 Anemia in chronic kidney disease; E03.9 Hypothyroidism, unspecified; E78.5 Hyperlipidemia, unspecified; F17.210 Nicotine dependence, cigarettes, uncomplicated; F31.9 Bipolar disorder, unspecified; Z82.49 Family history of ischemic heart disease and other diseases of the circulatory system; Z99.2 Dependence on renal dialysis; Z68.29 Body mass index [BMI] 29.0-29.9, adult
CPT/HCPCS: 36415; 71045; 80048; 80053; 83605; 83735; 83880; 84443; 84484; 85025; 87040; 90935; 93005; 93306; 93458; 94761; 96374; 99152; A6257; J1642; J2001; J2250; J2405; P9047; Q9956; Q9967

== ENCOUNTER 2018-04-17 11:51 | Inpatient (IN) | payer MEDICARE, MEDICAID ==
[~2018-04-17] VITALS: Ht 162.6 cm; Wt 85.5 kg
[~2018-04-17 11:51] MED LIST changes: -LEVO200T45 PO; +LEVO200T7 PO
[2018-04-17 13:28] LABS: Basophils # (auto) 0.1 uL; Basophils % (auto) 0.8 % (0.0-2.0); Eosinophils # (auto) 0.1 uL; Eosinophils % (auto) 1.1 % (0.0-7.0); Hemoglobin 11.1 g/dL (12.2-16.2); Lymphocytes # (auto) 1.2 uL; Lymphocytes % (auto) 13.1 % (10.0-50.0); Mean Corpuscular Hgb Conc. 31.6 g/dL (32.0-36.0); Mean Corpuscular Volume 91.9 fL (80.0-100.0); Monocytes # (auto) 0.8 uL; Monocytes % (auto) 8.6 % (0.0-12.0); Neutrophils # (auto) 7.2 uL; Neutrophils % (auto) 76.4 % (37.0-80.0); Nucleated Red Blood Cells % 0.2 %; Platelet Count (auto) 170 10^3/uL (140-450); Red Blood Cells 3.81 10^6/uL (4.0-5.20); White Blood Cell 9.4 10^3/uL (4.4-10.8)
[2018-04-17 13:34] LABS: INR 1.05 (0.9-1.15); Partial Thromboplastin Time 33.7 sec (23.78-33.04); Prothrombin Time 11.2 sec (9.27-12.13); Red Cell Distribution Width 22.3 % (11.8-14.3)
[2018-04-17] MEDS ORDERED: NOREPINEPHRINE 8 MG/250ML KIT 250 ML IV ONE (13:36)
[2018-04-17] MEDS ORDERED: NOREPINEPHRINE 8 MG/250ML KIT 250 ML IV SCH (13:45)
[2018-04-17] MEDS ORDERED: MORPHINE SULFATE 4 MG/ML SYR/VIAL IV PRN (14:45)
[2018-04-17] MEDS ORDERED: NITROGLYCERIN 0.4 MG SL TAB SL PRN (14:45)
[2018-04-17 15:16] LABS: Albumin 2.8 g/dL (3.4-5.0); BUN/Creatinine Ratio 4.2; Calcium 8.5 mg/dL (8.5-10.1); Potassium 3.9 mmol/L (3.5-5.1)
[2018-04-17 15:29] LABS: Bilirubin, Total 0.3 mg/dL (0.2-1.0); Total Protein 8.1 g/dL (6.4-8.2)
[2018-04-17 15:33] LABS: Urine Bacteria MANY /hpf (None Seen); Urine Blood 1+ /uL (Negative); Urine Mucus FEW (None Seen); Urine Specific Gravity 1.016 (1.001-1.035); Urine WBC 66 /hpf (0 - 5); Urine WBC Clumps PRESENT /hpf (None Seen)
[2018-04-17] MEDS ORDERED: DOCUSATE SOD 100 MG CAP PO ONE (15:45)
[2018-04-17] MEDS: HYDROcodone-ACET 5/325MG TAB PO PRN ×2 (17:19→22:46)
[2018-04-17] MEDS: SEVELAMER 800 MG TAB PO SCH (18:03)
[2018-04-17] MEDS: MIDODRINE HCL 10 MG TAB PO SCH (18:03)
[2018-04-17] MEDS: QUEtiapine FUMARATE 25 MG TAB PO SCH (22:45)
[2018-04-17] MEDS: DOCUSATE SOD 100 MG CAP PO SCH (22:45)
[2018-04-17 23:45] VITALS: BP 142/54
[2018-04-17] MEDS ORDERED: TEMA30CA PO (23:59)
[2018-04-17] MEDS ORDERED: CIPR-187 PO (23:59)
[2018-04-18] VITALS (45 sets, daily range): BP systolic 80–148; BP diastolic 43–115
[2018-04-18 04:15] LABS: Basophils # (auto) 0 uL; Basophils % (auto) 0.6 % (0.0-2.0); Eosinophils # (auto) 0.2 uL; Eosinophils % (auto) 2.7 % (0.0-7.0); Hematocrit 31.5 % (36.0-46.0); Hemoglobin 10.1 g/dL (12.2-16.2); Lymphocytes # (auto) 2.2 uL; Lymphocytes % (auto) 26.8 % (10.0-50.0); Mean Corpuscular Hemoglobin 29.3 pg (28.0-32.0); Mean Corpuscular Hgb Conc. 32.2 g/dL (32.0-36.0); Neutrophils # (auto) 4.8 uL; Neutrophils % (auto) 57.9 % (37.0-80.0); Platelet Count (auto) 237 10^3/uL (140-450); Red Blood Cells 3.46 10^6/uL (4.0-5.20); White Blood Cell 8.3 10^3/uL (4.4-10.8)
[2018-04-18 04:23] LABS: Red Cell Distribution Width 22.4 % (11.8-14.3)
[2018-04-18 04:33] LABS: Calcium 8.2 mg/dL (8.5-10.1); Potassium 4.4 mmol/L (3.5-5.1)
[2018-04-18 04:35] LABS: BUN/Creatinine Ratio 5.7
[2018-04-18] MEDS ORDERED: VANCOMYCIN PER PHARMACY 0 MG IV SCH (05:30)
[2018-04-18] MEDS: MIDODRINE HCL 10 MG TAB PO SCH ×3 (05:55→18:16)
[2018-04-18] MEDS: HYDROcodone-ACET 5/325MG TAB PO PRN ×3 (06:07→18:23)
[2018-04-18] MEDS ORDERED: VANCOMYCIN 1GM/250ML 250 ML IV ONE (06:15)
[2018-04-18] MEDS: LEVOTHYROXINE SODIUM 100 MCG TAB PO SCH (06:45)
[2018-04-18] MEDS: SEVELAMER 800 MG TAB PO SCH ×3 (08:45→18:16)
[2018-04-18] MEDS: cefTRIAXone 1GM/10ml IVPUSH 10 ML IV SCH (09:00)
[2018-04-18] MEDS: DOCUSATE SOD 100 MG CAP PO SCH ×2 (10:00→21:13)
[2018-04-18] MEDS ORDERED: BISACODYL 10 MG RECT SUPP PR PRN (14:45)
[2018-04-18] MEDS: QUEtiapine FUMARATE 25 MG TAB PO SCH (21:17)
[2018-04-19] MEDS: HYDROcodone-ACET 5/325MG TAB PO PRN ×5 (00:30→22:41)
[2018-04-19 05:10] VITALS: BP 140/50
[2018-04-19 05:23] LABS: Basophils # (auto) 0.1 uL; Basophils % (auto) 0.7 % (0.0-2.0); Eosinophils # (auto) 0.2 uL; Hematocrit 35.4 % (36.0-46.0); Hemoglobin 11.1 g/dL (12.2-16.2); Lymphocytes # (auto) 2.7 uL; Lymphocytes % (auto) 34.8 % (10.0-50.0); Mean Corpuscular Hemoglobin 28.7 pg (28.0-32.0); Mean Corpuscular Hgb Conc. 31.5 g/dL (32.0-36.0); Mean Corpuscular Volume 91.2 fL (80.0-100.0); Monocytes # (auto) 0.8 uL; Monocytes % (auto) 10.8 % (0.0-12.0); Neutrophils # (auto) 3.9 uL; Neutrophils % (auto) 50.7 % (37.0-80.0); Nucleated Red Blood Cells % 0.1 %; Platelet Count (auto) 261 10^3/uL (140-450); Red Blood Cells 3.88 10^6/uL (4.0-5.20); White Blood Cell 7.7 10^3/uL (4.4-10.8)
[2018-04-19 05:43] LABS: Potassium 4.8 mmol/L (3.5-5.1)
[2018-04-19 05:46] LABS: Albumin 2.3 g/dL (3.4-5.0); BUN/Creatinine Ratio 5.6; Calcium 8.7 mg/dL (8.5-10.1)
[2018-04-19 05:48] LABS: Bilirubin, Total 0.3 mg/dL (0.2-1.0); Total Protein 7.2 g/dL (6.4-8.2)
[2018-04-19] MEDS: MIDODRINE HCL 10 MG TAB PO SCH ×4 (06:00→18:27)
[2018-04-19] MEDS: LEVOTHYROXINE SODIUM 100 MCG TAB PO SCH (06:07)
[2018-04-19] MEDS: SEVELAMER 800 MG TAB PO SCH ×4 (08:00→18:27)
[2018-04-19 08:51] VITALS: BP 145/70
[2018-04-19] MEDS: cefTRIAXone 1GM/10ml IVPUSH 10 ML IV SCH (08:52)
[2018-04-19] MEDS: DOCUSATE SOD 100 MG CAP PO SCH ×2 (09:09→22:41)
[2018-04-19 13:19] VITALS: BP 110/70
[2018-04-19 14:30] VITALS: BP 113/66
[2018-04-19] MEDS: ALPRAZolam 0.5 MG TAB PO PRN (15:30)
[2018-04-19] MEDS ORDERED: VANCOMYCIN 1GM/250ML 250 ML IV ONE (16:00)
[2018-04-19 17:00] VITALS: BP 109/68
[2018-04-19 22:00] VITALS: BP 155/87
[2018-04-19] MEDS: QUEtiapine FUMARATE 25 MG TAB PO SCH (22:41)
[2018-04-20] MEDS: ALPRAZolam 0.5 MG TAB PO PRN (00:21)
[2018-04-20 05:00] VITALS: BP 136/82
[2018-04-20] MEDS: LEVOTHYROXINE SODIUM 100 MCG TAB PO SCH (07:55)
[2018-04-20] MEDS: MIDODRINE HCL 10 MG TAB PO SCH ×2 (07:55→11:00)
[2018-04-20] MEDS: SEVELAMER 800 MG TAB PO SCH ×3 (08:00→11:01)
[2018-04-20 08:04] VITALS: BP 152/89
[2018-04-20] MEDS: cefTRIAXone 1GM/10ml IVPUSH 10 ML IV SCH (09:52)
[2018-04-20] MEDS: DOCUSATE SOD 100 MG CAP PO SCH ×2 (09:52→09:59)
[2018-04-20 09:59] LABS: Basophils # (auto) 0 uL; Basophils % (auto) 0.2 % (0.0-2.0); Eosinophils # (auto) 0.2 uL; Eosinophils % (auto) 2.7 % (0.0-7.0); Hemoglobin 10.8 g/dL (12.2-16.2); Lymphocytes # (auto) 2.1 uL; Lymphocytes % (auto) 29.9 % (10.0-50.0); Mean Corpuscular Hemoglobin 28.8 pg (28.0-32.0); Mean Corpuscular Hgb Conc. 31.7 g/dL (32.0-36.0); Mean Corpuscular Volume 90.8 fL (80.0-100.0); Monocytes # (auto) 0.7 uL; Neutrophils % (auto) 57.2 % (37.0-80.0); Platelet Count (auto) 260 10^3/uL (140-450); Red Blood Cells 3.75 10^6/uL (4.0-5.20); White Blood Cell 7.1 10^3/uL (4.4-10.8)
[2018-04-20 10:07] LABS: Red Cell Distribution Width 23.5 % (11.8-14.3)
[2018-04-20 10:28] LABS: BUN/Creatinine Ratio 4.8; Calcium 8.9 mg/dL (8.5-10.1); Potassium 4.2 mmol/L (3.5-5.1)
[2018-04-20 11:46] VITALS: BP 142/71
[2018-04-20] MEDS: HYDROcodone-ACET 5/325MG TAB PO PRN (14:10)
[2018-04-20 15:20] VITALS: BP 142/71
== END 2018-04-20 17:00 | disposition hospice, home (50) | DRG 291 ==
LOC: ER 11:51 → EDBD 11:51 → TELE 11:52 → ICU WEST 22:55 → TELE-WESTW 04-18 18:11
PROVIDERS: ADMIT Internal Medicine; ATTEND Internal Medicine
PROC: 5A1D70Z Performance of Urinary Filtration, Intermittent, Less than 6 Hours Per Day (ICD-10-PCS; principal; 2018-04-19)
DX: I13.2 Hypertensive heart and chronic kidney disease with heart failure and with stage 5 chronic kidney disease, or end stage renal disease (principal); J96.20 Acute and chronic respiratory failure, unspecified whether with hypoxia or hypercapnia; N18.6 End stage renal disease; I50.43 Acute on chronic combined systolic (congestive) and diastolic (congestive) heart failure; N39.0 Urinary tract infection, site not specified; Z99.2 Dependence on renal dialysis; I87.8 Other specified disorders of veins; E03.9 Hypothyroidism, unspecified; D63.1 Anemia in chronic kidney disease; E78.5 Hyperlipidemia, unspecified; F17.210 Nicotine dependence, cigarettes, uncomplicated; F31.9 Bipolar disorder, unspecified; I42.0 Dilated cardiomyopathy; Z82.49 Family history of ischemic heart disease and other diseases of the circulatory system; Z79.899 Other long term (current) drug therapy; Z99.81 Dependence on supplemental oxygen
CPT/HCPCS: 36415; 71045; 80048; 80053; 80202; 81001; 83605; 83880; 84443; 84484; 85025; 85610; 85730; 87040; 87081; 87086; 90935; 93005; 93970; 96365; 97163; J0696

== ENCOUNTER 2018-06-09 18:55 | Emergency (ER) | payer MEDICARE, MEDICAID ==
[~2018-06-09] VITALS: Ht 162.6 cm; Wt 79.8 kg
[~2018-06-09 18:55] MED LIST changes: +CIPR-187 PO; +TEMA30CA PO
[2018-06-10 00:06] LABS: Urine Bacteria NONE SEEN /hpf (None Seen); Urine Blood 2+ /uL (Negative); Urine Specific Gravity 1.016 (1.001-1.035); Urine WBC 637 /hpf (0 - 5)
[2018-06-10 00:25] LABS: Basophils # (auto) 0.1 uL; Basophils % (auto) 1.5 % (0.0-2.0); Eosinophils # (auto) 0.1 uL; Hematocrit 39.4 % (36.0-46.0); Hemoglobin 12.7 g/dL (12.2-16.2); Lymphocytes # (auto) 1.8 uL; Lymphocytes % (auto) 39.1 % (10.0-50.0); Mean Corpuscular Hemoglobin 28.4 pg (28.0-32.0); Mean Corpuscular Hgb Conc. 32.1 g/dL (32.0-36.0); Mean Corpuscular Volume 88.4 fL (80.0-100.0); Monocytes # (auto) 0.7 uL; Monocytes % (auto) 14.3 % (0.0-12.0); Neutrophils % (auto) 42.1 % (37.0-80.0); Platelet Count (auto) 183 10^3/uL (140-450); Red Blood Cells 4.46 10^6/uL (4.0-5.20); White Blood Cell 4.7 10^3/uL (4.4-10.8)
[2018-06-10 00:29] LABS: Red Cell Distribution Width 20.1 % (11.8-14.3)
[2018-06-10 00:40] LABS: Albumin 2.9 g/dL (3.4-5.0); BUN/Creatinine Ratio 3.4; Calcium 8.5 mg/dL (8.5-10.1); Potassium 3.8 mmol/L (3.5-5.1)
[2018-06-10 00:44] LABS: Bilirubin, Total 0.2 mg/dL (0.2-1.0); Total Protein 7.7 g/dL (6.4-8.2)
[2018-06-10 05:35] VITALS: BP 157/89
== END 2018-06-10 00:59 | disposition home or self-care (01) ==
LOC: ER 18:55
DX: N39.0 Urinary tract infection, site not specified (principal); K59.00 Constipation, unspecified; I13.2 Hypertensive heart and chronic kidney disease with heart failure and with stage 5 chronic kidney disease, or end stage renal disease; N18.6 End stage renal disease; E78.5 Hyperlipidemia, unspecified; E07.9 Disorder of thyroid, unspecified
CPT/HCPCS: 36415; 74176; 80053; 81001; 85025; 93005

== ENCOUNTER → 2018-08-11 | Emergency (ER) | payer MEDICARE, MEDICAID ==
[~2018-08-11] MED LIST changes: -CIPR-187 PO; +CLIN-188 PO; -DOCU-94 PO; +DOCU1CAP54 PO; -FAM20T PO; +HYDR100T22 PO; -LEVO200T7 PO; -MIDO10TA PO; -NOR10T PO; +PERCOT PO; +TIZA4CAP PO
== END | disposition left against medical advice (07) ==
LOC: ER 14:47
DX: R52 Pain, unspecified (principal); Z53.21 Procedure and treatment not carried out due to patient leaving prior to being seen by health care provider

== ENCOUNTER 2018-08-12 14:52 | Inpatient (IN) | payer MEDICARE, MEDICAID ==
[~2018-08-12] VITALS: Ht 157.5 cm; Wt 80.6 kg
[~2018-08-12 14:52] MED LIST changes: -CLIN-188 PO; -HYDR100T22 PO
[2018-08-12] MEDS ORDERED: SODIUM CHLORIDE 0.9% 1,000 ML IV ONE (15:49)
[2018-08-12] MEDS ORDERED: SODIUM CHLORIDE 0.9% 500 ML IV ONE (15:49)
[2018-08-12] MEDS ORDERED: cefTRIAXone 1GM/50ML D5W 50 ML IV ONE (16:45)
[2018-08-12] MEDS ORDERED: PIPERACILLIN-TAZOB 3.375GM 100 ML IV ONE (16:45)
[2018-08-12 17:07] LABS: Basophils # (auto) 0.1 uL; Basophils % (auto) 1.6 % (0.0-2.0); Eosinophils # (auto) 0.3 uL; Eosinophils % (auto) 4.1 % (0.0-7.0); Hematocrit 29.4 % (36.0-46.0); Hemoglobin 9.6 g/dL (12.2-16.2); Lymphocytes % (auto) 25.5 % (10.0-50.0); Mean Corpuscular Hemoglobin 30.4 pg (28.0-32.0); Mean Corpuscular Hgb Conc. 32.8 g/dL (32.0-36.0); Mean Corpuscular Volume 92.8 fL (80.0-100.0); Monocytes % (auto) 13.2 % (0.0-12.0); Neutrophils # (auto) 4.4 uL; Neutrophils % (auto) 55.6 % (37.0-80.0); Nucleated Red Blood Cells % 0.1 %; Platelet Count (auto) 200 10^3/uL (140-450); Red Blood Cells 3.17 10^6/uL (4.0-5.20); Red Cell Distribution Width 21.3 % (11.8-14.3); White Blood Cell 7.9 10^3/uL (4.4-10.8)
[2018-08-12 17:19] LABS: Albumin 2.8 g/dL (3.4-5.0); Calcium 8.3 mg/dL (8.5-10.1); Magnesium 2.6 mg/dL (1.6-2.6); Potassium 3.2 mmol/L (3.5-5.1)
[2018-08-12 17:20] LABS: INR 0.97 (0.9-1.15); Partial Thromboplastin Time 28.2 sec (23.78-33.04); Prothrombin Time 10.4 sec (9.27-12.13)
[2018-08-12 17:22] LABS: BUN/Creatinine Ratio 2.8; Bilirubin, Total 0.3 mg/dL (0.2-1.0)
[2018-08-12] MEDS ORDERED: POTASSIUM EFFERVESENT TAB 25 MEQ PO ONE (17:45)
[2018-08-12] MEDS ORDERED: SPIRONOLACTONE 25 MG TAB PO ONE (17:45)
[2018-08-12] MEDS ORDERED: LEVOTHYROXINE SODIUM 25 MCG TAB PO ONE (17:45)
[2018-08-12] MEDS ORDERED: FUROSEMIDE 20 MG/2 ML VIAL IV ONE (17:45)
[2018-08-12 18:19] LABS: Urine Bacteria FEW /hpf (None Seen); Urine Blood Negative /uL (Negative); Urine Hyaline Cast FEW /lpf (0 - 2); Urine Specific Gravity 1.011 (1.001-1.035); Urine WBC 4 /hpf (0 - 5)
[2018-08-12] MEDS ORDERED: MORPHINE SULFATE 4 MG/ML SYR/VIAL IV PRN (18:45)
[2018-08-12] MEDS ORDERED: NITROGLYCERIN 0.4 MG SL TAB SL PRN (18:45)
[2018-08-12] MEDS ORDERED: ENALAPRILAT 1.25 MG/ML-1ML VIAL IV PRN (19:00)
[2018-08-12] MEDS: CARISOPRODOL 350 MG TAB PO SCH ×2 (19:44→23:03)
[2018-08-12] MEDS: LINEZOLID 600MG/300ML 300 ML IV SCH (20:30)
--- NOTE | 2018-08-12 21:36 | NUR ---
MS admit from ER RACQUEL SAEZ admitted to tele/MS. Patient oriented to LAUREN LIVINGSTON RN primary RN, unit, room, bed, and unit policies regarding patient care and visiting hours. Patient is AxO x4, no S/S of distress, pain, or SOB. VSkaila Leonard is present. Bed in lowest position with call light and phone within reach. Patient weighed by bedscale and encouraged to call if they need something. All questions and concerns addressed, patient verbalized understanding.
[2018-08-12 21:50] VITALS: BP 159/99
[2018-08-12] MEDS: CARVEDILOL 12.5 MG TAB PO SCH (23:03)
[2018-08-12] MEDS: DOCUSATE SOD 100 MG CAP PO SCH (23:03)
[2018-08-12] MEDS: GABAPENTIN 100 MG CAP PO SCH (23:03)
[2018-08-12] MEDS: QUEtiapine FUMARATE 25 MG TAB PO SCH (23:04)
[2018-08-13] MEDS ORDERED: HYDR100T22 PO (01:11)
[2018-08-13] MEDS ORDERED: CLIN-188 PO (01:11)
--- NOTE | 2018-08-13 02:20 | NUR ---
Pictures of the sacral area taken.
--- NOTE | 2018-08-13 02:43 | NUR ---
MRSA of the nares sent to lab via bullet system.
[2018-08-13] MEDS: OXYCODONE W/ ACETAMINOPHEN 5/325MG TABLET PO PRN ×2 (03:12→20:03)
--- NOTE | 2018-08-13 04:36 | NUR ---
Paged hospitalist for elevated blood pressure.
--- NOTE | 2018-08-13 04:49 | NUR ---
Hospitalist called back. New orders received. One time dose of hydralazine 50 mg tablet PO now. Resume home med hydralazine 50 mg tablet PO BID.
[2018-08-13] MEDS ORDERED: hydrALAZINE HCL 25 MG TAB PO ONE (05:00)
[2018-08-13 05:37] LABS: Basophils # (auto) 0 uL; Basophils % (auto) 0.6 % (0.0-2.0); Eosinophils # (auto) 0.3 uL; Eosinophils % (auto) 5.2 % (0.0-7.0); Hematocrit 27.2 % (36.0-46.0); Hemoglobin 8.9 g/dL (12.2-16.2); Lymphocytes # (auto) 2.3 uL; Lymphocytes % (auto) 36.3 % (10.0-50.0); Mean Corpuscular Hemoglobin 30.5 pg (28.0-32.0); Mean Corpuscular Hgb Conc. 32.9 g/dL (32.0-36.0); Mean Corpuscular Volume 92.9 fL (80.0-100.0); Monocytes # (auto) 0.9 uL; Monocytes % (auto) 14.1 % (0.0-12.0); Neutrophils # (auto) 2.7 uL; Neutrophils % (auto) 43.8 % (37.0-80.0); Platelet Count (auto) 181 10^3/uL (140-450); Red Blood Cells 2.93 10^6/uL (4.0-5.20); White Blood Cell 6.3 10^3/uL (4.4-10.8)
[2018-08-13 05:58] LABS: Calcium 8.2 mg/dL (8.5-10.1); Potassium 3.2 mmol/L (3.5-5.1)
[2018-08-13] MEDS: DOCUSATE SOD 100 MG CAP PO SCH ×3 (06:00→22:23)
[2018-08-13] MEDS ORDERED: PIPERACILLIN-TAZOB 2.25GM 50 ML IV SCH (06:00)
[2018-08-13] MEDS: CARISOPRODOL 350 MG TAB PO SCH ×4 (06:33→22:23)
[2018-08-13] MEDS: TIZANIDINE HYDROCHLORIDE PO SCH ×3 (06:33→22:22)
[2018-08-13] MEDS: SEVELAMER 800 MG TAB PO SCH ×3 (07:00→18:15)
--- NOTE | 2018-08-13 07:38 | NUR ---
Patient's own meds taken to pharmacy.
[2018-08-13 09:06] VITALS: BP 130/85
--- NOTE | 2018-08-13 10:00 | NUR ---
WOUND CARE NOTE: IN TO SEE PATIENT AT THIS TIME PER WOUND CARE CONSULT REQUEST. PATIENT WAS NOTED UPON ADMIT, TO HAVE PRESSURE ULCERS TO SACRUM. WOUND PHOTOS WERE TAKEN AT THAT TIME BY BEDSIDE NURSE FOR REFERENCE, WOUND CONSULT ORDERED. [facility] OF INFECTED PRESSURE ULCERS WITH MDRO'S. PATIENT IS RESTING ON SPECIALTY AIR BED. SHE HAS CURRENT JONATHAN SCORE OF 12. SHE CAN TURN/REPOSITION SELF WITH MINIMAL ASSISTANCE BY STAFF. PATIENT IS NOTED TO HAVE 3 FULL THICKNESS PRESSURE ULCERS THAT APPEAR TO BE STAGE 3 PRESSURE ULCERS THAT ARE CHRONIC. LIGHT SEROUS DRAINAGE NOTED. WOUND STATS CAN BE FOUND WITHIN WOUND ASSESSMENT LINKED WITH THIS NOTE. ALL WOUNDS SHALLOW, WITH NO DISCERNIBLE DEPTH NOTED. CLEANSED WITH WOUND CLEANSER,PATTED DRY WITH STERILE GAUZE, APPLIED SILVASORB HYDROGEL WITHIN WOUND BED. COVERED WITH OPTIFOAM GENTLE SACRAL DRESSING. PATIENT REPOSITIONED ONTO RIGHT SIDE, REDISTRIBUTING PRESSURE POINTS WITH PILLOWS. RECOMMEND: FREQUENT TURN SCHEDULE Q 2 HOURS, PRN CONDITION PERMITS, WITH PRESSURE REDISTRIBUTION USING PILLOWS/WEDGES, DAILY/PRN DRESSING CHANGE TO SACRAL WOUNDS WITH SILVASORB HYDROGEL, OPTIFOAM SACRAL DRESSING, SPECIALTY AIR BED, DIETARY CONSULT, CONTINUED MONITORING BY WOUND CARE TEAM. Addendum: 08/13/18 at 1459 by Violeta Weaver RN Amended: Links added.
[2018-08-13] MEDS: GABAPENTIN 100 MG CAP PO SCH ×2 (10:43→22:23)
[2018-08-13] MEDS: LINEZOLID 600MG/300ML 300 ML IV SCH ×2 (10:43→20:02)
[2018-08-13] MEDS: PANTOPRAZOLE 40 MG TAB PO SCH (10:43)
[2018-08-13] MEDS: LISINOPRIL 20 MG TAB PO SCH (10:45)
[2018-08-13] MEDS: CARVEDILOL 12.5 MG TAB PO SCH ×2 (10:46→22:24)
[2018-08-13] MEDS: hydrALAZINE HCL 25 MG TAB PO SCH ×2 (10:47→22:24)
[2018-08-13] MEDS: ALPRAZolam 0.25 MG TAB PO SCH (10:48)
[2018-08-13] MEDS: CINACALCET HYDROCHLORIDE 30 MG TAB PO SCH (11:03)
[2018-08-13] MEDS ORDERED: ERTAPENEM SOD 1 GM INJ VIAL IM ONE (12:45)
[2018-08-13 12:57] VITALS: BP 152/85
[2018-08-13] MEDS: MEROPENEM 500MG IVPB 50 ML IV SCH (15:00)
[2018-08-13] MEDS ORDERED: cloNIDine HCL 0.1 MG TAB PO PRN (15:15)
[2018-08-13 17:26] VITALS: BP 147/87
[2018-08-13] MEDS: DOXEPIN HCL 150 MG PO SCH (18:00)
--- NOTE | 2018-08-13 19:28 | NUR ---
Opening Shift Note Assumed care of patient, awake and alert. No S/S of distress/SOB or pain. Turned patient onto right side with her head elevated. Call light and phone are within reach, bed in lowest position. Instructed on POC and to call for assist PRN, will continue to monitor for changes Q1hr and PRN.
--- NOTE | 2018-08-13 20:49 | NUR ---
Hospitalist called back. New orders received and will carry out.
[2018-08-13 22:00] VITALS: BP 161/88
[2018-08-13] MEDS: QUEtiapine FUMARATE 25 MG TAB PO SCH (22:23)
[2018-08-13] MEDS: TEMAZEPAM 15 MG CAP PO PRN (22:24)
[2018-08-14] MEDS: MEROPENEM 500MG IVPB 50 ML IV SCH ×2 (02:49→16:44)
--- NOTE | 2018-08-14 03:02 | NUR ---
pt is an alert and oriented but fatigued female that resides with her spouse in their residence. Pt is on hemodialysis at [facility] three times a week and is transported by medical van. ( did not remember the name) Pt states she has medical equipment at home such as a fww, w/c, and oxygen. Pt states she was on [facility] prior to her admission and wants to continue with their service upon d/c. Pt states she was in [facility] last year for about a year and does not want to go to a facility after discharge. Will continue to monitor and provide intervention as appropriate. Addendum: 08/16/18 at 1907 by JOSE LEONE Amended: Links added.
[2018-08-14 05:00] VITALS: BP 115/71
[2018-08-14] MEDS: CARISOPRODOL 350 MG TAB PO SCH ×4 (05:58→22:38)
[2018-08-14] MEDS: DOCUSATE SOD 100 MG CAP PO SCH ×3 (05:58→22:39)
[2018-08-14] MEDS: TIZANIDINE HYDROCHLORIDE PO SCH ×3 (05:59→22:00)
[2018-08-14 08:36] VITALS: BP 129/72
[2018-08-14] MEDS: SEVELAMER 800 MG TAB PO SCH ×3 (08:42→18:39)
[2018-08-14] MEDS: OXYCODONE W/ ACETAMINOPHEN 5/325MG TABLET PO PRN ×3 (08:43→18:51)
[2018-08-14] MEDS: LINEZOLID 600MG/300ML 300 ML IV SCH ×2 (08:43→22:35)
[2018-08-14] MEDS ORDERED: ERTAPENEM SOD 1 GM INJ VIAL IM SCH (10:00)
--- NOTE | 2018-08-14 11:32 | NUR ---
NUTRITION CONSULT/ASSESSMENT NOTES Please refer to link notes of nutrition screen form filed under the intervention section of the plan of care for further details. Est. Needs: 1500 kcal to 2000 kcal (15-20 kcal/kgBW), 101 gms to 122 gms pro (1.0-1.2 gms/kgBW). Will continue to monitor pertinent labs and reassess nutrient needs prn Thank you for this consult. Addendum: 08/14/18 at [address] Amended: Links added.
[2018-08-14 12:49] VITALS: BP 107/67
[2018-08-14] MEDS: GABAPENTIN 100 MG CAP PO SCH ×2 (13:07→22:35)
[2018-08-14] MEDS: PANTOPRAZOLE 40 MG TAB PO SCH (13:07)
[2018-08-14] MEDS: CARVEDILOL 12.5 MG TAB PO SCH ×2 (13:07→22:37)
[2018-08-14] MEDS: hydrALAZINE HCL 25 MG TAB PO SCH ×2 (13:07→22:38)
[2018-08-14] MEDS: ALPRAZolam 0.25 MG TAB PO SCH (13:08)
[2018-08-14] MEDS: LISINOPRIL 20 MG TAB PO SCH (13:08)
[2018-08-14] MEDS: CINACALCET HYDROCHLORIDE 30 MG TAB PO SCH (13:08)
[2018-08-14 15:37] VITALS: BP 156/87
--- NOTE | 2018-08-14 16:00 | NUR ---
Spoke with Dr. Godoy Regarding inability to place PICC line. Dr. Godoy stated that another nurse could try tomorrow. Let the patient and the PICC nurse know. Will continue to monitor.
--- NOTE | 2018-08-14 16:23 | NUR ---
PICC LINE Unable to advance wire. Brachial and basilic veins were attempted multiple times with out being able to advance. Dr. Godoy notified. His response was to "hire another nurse". This RN is back tomorrow. Addendum: 08/14/18 at 1707 by Lo Aguirre, RN Left arm had previous site of AV fistula. It was moved to the right and the arm was reconstructed. There is a lot of scarring to the area. The wire was able to advance past the end of the needle, but less than half way on both vessels attempted despite the vessels being accessed easily.
[2018-08-14 17:48] VITALS: BP 153/81
[2018-08-14] MEDS: DOXEPIN HCL 150 MG PO SCH (18:00)
[2018-08-14] MEDS: Pro-Stat SF 30ml Vanilla PO SCH (18:40)
[2018-08-14 21:50] VITALS: BP 134/77
[2018-08-14] MEDS: ASCORBIC ACID 500 MG TAB PO SCH (22:36)
[2018-08-14] MEDS: QUEtiapine FUMARATE 25 MG TAB PO SCH (22:39)
[2018-08-14] MEDS: TEMAZEPAM 15 MG CAP PO PRN (23:20)
[2018-08-15] MEDS: MEROPENEM 500MG IVPB 50 ML IV SCH ×2 (03:00→14:39)
[2018-08-15 04:49] VITALS: BP 155/86
[2018-08-15] MEDS: OXYCODONE W/ ACETAMINOPHEN 5/325MG TABLET PO PRN ×3 (05:00→18:52)
[2018-08-15] MEDS: TIZANIDINE HYDROCHLORIDE PO SCH ×3 (06:00→22:01)
[2018-08-15] MEDS: DOCUSATE SOD 100 MG CAP PO SCH ×3 (06:20→22:00)
[2018-08-15] MEDS: SEVELAMER 800 MG TAB PO SCH ×3 (06:20→18:50)
[2018-08-15] MEDS: CARISOPRODOL 350 MG TAB PO SCH ×4 (06:20→22:02)
--- NOTE | 2018-08-15 08:00 | NUR ---
Opening Shift Note Assumed care of patient, awake and alert. No S/S of distress/SOB 5/10 back pain. Initiated turning to sides every 2 hours. Sacral decubitus ulcer cover with optifoam dressing. Patient on air mattress. Instructed on POC and to call for assist PRN, will continue to monitor for changes Q1hr and PRN.
[2018-08-15 08:30] VITALS: BP 174/108
[2018-08-15] MEDS: Pro-Stat SF 30ml Vanilla PO SCH ×2 (08:53→18:51)
[2018-08-15] MEDS: LINEZOLID 600MG/300ML 300 ML IV SCH ×2 (08:53→21:50)
--- NOTE | 2018-08-15 10:30 | NUR ---
SPOKE WITH DR. HAYES CARDIAC CATH TECHNOLOGIST REGARDING DIFFICULTY TO ESTABLISH A PICC LINE THAT WILL BE NEEDED FOR CONTINUOUS HOME IV ANTIBIOTICS WHILE PATIENT IS ON DIALYSIS. PER DR. HAYES HE ALREADY DISCUSSED THE MATTER WITH DR. CHRISTIANSEN AND WILL FIGURE OUT ADMINISTRATION OF IV ANTIBIOTICS.
[2018-08-15] MEDS: ALPRAZolam 0.25 MG TAB PO SCH (10:34)
[2018-08-15] MEDS: ASCORBIC ACID 500 MG TAB PO SCH ×2 (10:34→22:03)
[2018-08-15] MEDS: CARVEDILOL 12.5 MG TAB PO SCH ×2 (10:34→22:07)
[2018-08-15] MEDS: LISINOPRIL 20 MG TAB PO SCH (10:35)
[2018-08-15] MEDS: B-COMPLEX W/ C & FOLIC ACID(NEPHROVITE TAB) PO SCH (10:36)
[2018-08-15] MEDS: hydrALAZINE HCL 25 MG TAB PO SCH ×2 (10:36→22:07)
[2018-08-15] MEDS: GABAPENTIN 100 MG CAP PO SCH ×2 (10:37→22:02)
[2018-08-15] MEDS: PANTOPRAZOLE 40 MG TAB PO SCH (10:37)
[2018-08-15] MEDS: CINACALCET HYDROCHLORIDE 30 MG TAB PO SCH (10:41)
--- NOTE | 2018-08-15 10:45 | NUR ---
Instructions from Dr. Schafer received, recorded the total fluid removed during dialysis yesterday to the Intake and Output.
[2018-08-15 12:32] VITALS: BP 109/67
[2018-08-15] MEDS ORDERED: FLEET ENEMA(ADULT) 135 ML PR ONE (13:45)
--- NOTE | 2018-08-15 13:45 | NUR ---
COMPLAINED OF CONSTIPATION, PATIENT REQUESTING IF SHE CAN HAVE FLEET ENEMA. PAGED DR. CHRISTIANSEN AND RETURNED CALL. ORDERS RECEIVED.
--- NOTE | 2018-08-15 14:45 | NUR ---
Received a call from Monse MARTIN PICC line about the PICC line reinsertion. Per Monse MARTIN, they will try to reinsert the PICC tomorrow with Lashay MARTIN.
--- NOTE | 2018-08-15 15:30 | NUR ---
Patient had a large bowel movement after fleet enema.
[2018-08-15 16:51] VITALS: BP 152/81
[2018-08-15] MEDS: DOXEPIN HCL 150 MG PO SCH (18:00)
[2018-08-15 22:00] VITALS: BP 153/87
[2018-08-15] MEDS: QUEtiapine FUMARATE 25 MG TAB PO SCH (22:02)
[2018-08-15] MEDS: TEMAZEPAM 15 MG CAP PO PRN (22:08)
[2018-08-16] MEDS: MEROPENEM 500MG IVPB 50 ML IV SCH ×2 (03:27→16:22)
[2018-08-16 05:00] VITALS: BP 149/78
[2018-08-16] MEDS: DOCUSATE SOD 100 MG CAP PO SCH ×3 (06:00→22:00)
[2018-08-16] MEDS: TIZANIDINE HYDROCHLORIDE PO SCH ×3 (06:25→22:00)
[2018-08-16] MEDS: CARISOPRODOL 350 MG TAB PO SCH ×4 (06:26→21:57)
[2018-08-16 06:43] LABS: Basophils # (auto) 0.1 uL; Basophils % (auto) 1.3 % (0.0-2.0); Eosinophils # (auto) 0.4 uL; Eosinophils % (auto) 7.2 % (0.0-7.0); Hematocrit 28.6 % (36.0-46.0); Hemoglobin 9.3 g/dL (12.2-16.2); Lymphocytes # (auto) 1.8 uL; Lymphocytes % (auto) 34.1 % (10.0-50.0); Mean Corpuscular Hemoglobin 30.2 pg (28.0-32.0); Mean Corpuscular Hgb Conc. 32.5 g/dL (32.0-36.0); Mean Corpuscular Volume 92.8 fL (80.0-100.0); Monocytes # (auto) 0.7 uL; Monocytes % (auto) 12.4 % (0.0-12.0); Neutrophils # (auto) 2.4 uL; Platelet Count (auto) 169 10^3/uL (140-450); Red Blood Cells 3.08 10^6/uL (4.0-5.20); White Blood Cell 5.3 10^3/uL (4.4-10.8)
[2018-08-16 06:49] LABS: Calcium 7.4 mg/dL (8.5-10.1); Potassium 3.5 mmol/L (3.5-5.1)
[2018-08-16] MEDS ORDERED: SODIUM CHL 0.9% 1000 ML BAG XX ONE (07:15)
--- NOTE | 2018-08-16 07:15 | NUR ---
Open Shift Note Received report on patient, asleep in bed but awoken when entered. Patient shows no signs of distress at this time. Discussed POC. Bed in lowest locked position, side rails up x2, and call light within reach. Will continue to monitor.
[2018-08-16 07:17] LABS: Red Cell Distribution Width 20.6 % (11.8-14.3)
[2018-08-16] MEDS: OXYCODONE W/ ACETAMINOPHEN 5/325MG TABLET PO PRN ×3 (07:34→19:06)
--- NOTE | 2018-08-16 08:25 | NUR ---
Bowel Movement and Dressing Change Patient had bowel movement. Cleaned and changed sacral dressing per wound care orders.
[2018-08-16] MEDS: LINEZOLID 600MG/300ML 300 ML IV SCH ×2 (08:38→21:03)
[2018-08-16] MEDS: SEVELAMER 800 MG TAB PO SCH ×3 (08:38→18:38)
[2018-08-16] MEDS: Pro-Stat SF 30ml Vanilla PO SCH ×2 (08:39→18:38)
[2018-08-16 08:45] LABS: INR 0.99 (0.9-1.15); Prothrombin Time 10.6 sec (9.27-12.13)
[2018-08-16 09:00] VITALS: BP 154/93
[2018-08-16] MEDS: PANTOPRAZOLE 40 MG TAB PO SCH (09:37)
[2018-08-16] MEDS: hydrALAZINE HCL 25 MG TAB PO SCH ×2 (09:38→21:57)
[2018-08-16] MEDS: B-COMPLEX W/ C & FOLIC ACID(NEPHROVITE TAB) PO SCH (09:38)
[2018-08-16] MEDS: GABAPENTIN 100 MG CAP PO SCH ×2 (09:39→21:59)
[2018-08-16] MEDS: ASCORBIC ACID 500 MG TAB PO SCH ×2 (09:39→21:59)
[2018-08-16] MEDS: CARVEDILOL 12.5 MG TAB PO SCH ×2 (09:39→21:58)
[2018-08-16] MEDS: ALPRAZolam 0.25 MG TAB PO SCH (09:40)
[2018-08-16] MEDS: LISINOPRIL 20 MG TAB PO SCH (09:41)
[2018-08-16] MEDS: CINACALCET HYDROCHLORIDE 30 MG TAB PO SCH (10:14)
--- NOTE | 2018-08-16 10:15 | NUR ---
PICC Line Nurse at Bedside Attempting PICC insertion. No signs of distress.
--- NOTE | 2018-08-16 11:28 | NUR ---
PICC/Midline line placement Patient educated on need for PICC line placement. All risks and benefits explained and all questions and concerns addressed prior to procedure. Noted past medical history and allergies with no contraindications. INR and Plt counts within acceptable range. Attempted twice to insert 4 fr PICC line with no success, obstruction occurred right before axillary area on both occassions. First attempt was in caphalic vein, second attempt in brachial vein. EBL 3 mls. 55cm PICC line cut to 10 cm in length, inserted via left brachial vein using [employer] US. Sterile technique with maximum barrier precautions utilized. Blood return obtained from single lumen and flushed easily with NS using proper technique. Midline secured with Stat-lock; biodisc and occlusive dressing applied. Pt was very patient, cooperative and tolerated well during entire procedure. *Baseline Arm Circumference 32. *Internal Length 9 cm. *External Length 1 cm. *PICC lot #[id number]. Note: Spoke to Dr. Godoy regarding PICC line attempt, states midline is okay. Appreciative.
[2018-08-16 13:00] VITALS: BP 123/70
--- NOTE | 2018-08-16 15:45 | NUR ---
End Dialysis Dialysis finished, got out 2L. Patient tolerated well.
[2018-08-16 17:00] VITALS: BP 110/65
--- NOTE | 2018-08-16 17:30 | NUR ---
Spoke with Case Management Spoke with Suzy from case management who stated that patient cannot go to SNF because patient has no days left on Medicare since being in a SNF for the past year and returning to the hospital within 60 days. Suzy stated she spoke with Dr Godoy to determine if dialysis facility can give patient's IV antibiotics there during her dialysis days as well as the other days.
[2018-08-16] MEDS: DOXEPIN HCL 150 MG PO SCH (18:00)
--- NOTE | 2018-08-16 19:02 | NUR ---
End of Shift Endorsed care to NOC nurse. Patient shows no signs of distress at this time. Bed in lowest locked position, side rails up x2, and call light within reach.
--- NOTE | 2018-08-16 19:08 | NUR ---
Per MD luke followup made with [facility] regarding available medicare days for possible IV ABX therapy. Facility records management coordinator stated that pt was at their facility from 02/2017 to 02/2018. Pt has been hospitalized in April, June of 2018 and again in July 2018 and has not had the 60 day break between SNF and hospitaliztion to regenerate additional medicare days. Additionally, Pt reiterated that she does not want placement. Notified Dr. Godoy that placement for ABX therapy is not an option due to no days and pt does not agree. Per window caser, Jenniffer, if pt goes on home health for IV abx therapy she will have to pay for medication but not if IV ABX is given through dialysis center during treatment.Discussed with him the option of decreasing medication to once a day and for it to be provided through the dialysis center. agreed to decrease abx to once a day. [facility] will need to be contacted to obtain agreeance to provide abx on pt's off days from dialysis treatments. If they are unable to accomodate, f/u with regarding decreasing med to every other day , if not MD will need to coordinate with pt's tailor apprentice at [facility] for appropriate plan of care regarding therapy.
[2018-08-16] MEDS ORDERED: EPOETIN ALFA 10,000 UNIT/1 ML VIAL SC ONE (21:00)
[2018-08-16] MEDS: TEMAZEPAM 15 MG CAP PO PRN (21:01)
[2018-08-16 22:00] VITALS: BP 140/86
[2018-08-16] MEDS: QUEtiapine FUMARATE 25 MG TAB PO SCH (22:00)
[2018-08-17] MEDS: OXYCODONE W/ ACETAMINOPHEN 5/325MG TABLET PO PRN ×3 (02:09→22:23)
[2018-08-17] MEDS: MEROPENEM 500MG IVPB 50 ML IV SCH ×2 (02:09→16:04)
[2018-08-17 04:49] VITALS: BP 134/81
[2018-08-17] MEDS: TIZANIDINE HYDROCHLORIDE PO SCH ×3 (06:00→22:18)
[2018-08-17] MEDS: DOCUSATE SOD 100 MG CAP PO SCH ×3 (06:08→22:14)
[2018-08-17] MEDS: CARISOPRODOL 350 MG TAB PO SCH ×4 (06:09→22:14)
[2018-08-17] MEDS: SEVELAMER 800 MG TAB PO SCH ×5 (06:09→18:18)
--- NOTE | 2018-08-17 07:50 | NUR ---
Opening Shift Note Assumed care of patient, awake and alert. No S/S of distress/SOB or pain. Instructed on POC and to call for assist PRN, will continue to monitor for changes Q1hr and PRN.
[2018-08-17] MEDS: Pro-Stat SF 30ml Vanilla PO SCH ×2 (08:00→18:00)
[2018-08-17 08:52] VITALS: BP 143/81
[2018-08-17] MEDS: LINEZOLID 600MG/300ML 300 ML IV SCH ×2 (09:39→20:33)
[2018-08-17] MEDS: ASCORBIC ACID 500 MG TAB PO SCH ×2 (09:51→22:13)
[2018-08-17] MEDS: B-COMPLEX W/ C & FOLIC ACID(NEPHROVITE TAB) PO SCH (09:51)
[2018-08-17] MEDS: hydrALAZINE HCL 25 MG TAB PO SCH ×2 (09:51→22:13)
[2018-08-17] MEDS: GABAPENTIN 100 MG CAP PO SCH ×2 (09:51→22:14)
[2018-08-17] MEDS: PANTOPRAZOLE 40 MG TAB PO SCH (09:51)
[2018-08-17] MEDS: CARVEDILOL 12.5 MG TAB PO SCH ×2 (09:52→22:11)
[2018-08-17] MEDS: LISINOPRIL 20 MG TAB PO SCH (09:53)
[2018-08-17] MEDS: ALPRAZolam 0.25 MG TAB PO SCH (09:53)
[2018-08-17] MEDS: CINACALCET HYDROCHLORIDE 30 MG TAB PO SCH ×2 (09:57→10:00)
--- NOTE | 2018-08-17 10:02 | NUR ---
IV ABX AT HD: SPOKE TO JUAN MANUEL AT [facility]. JUAN MANUEL RN STATED THAT THEY CANNOT ACCOMODATE PT FOR IV ABX DAILY. WILL CONTACT DR CHRISTIANSEN AND SIRI FITZGERALD RN
--- NOTE | 2018-08-17 10:35 | NUR ---
Spoke to Dr. Godoy. Dr. Godoy states that patient cannot be accepted in SNF and patient unable to pay for IV home antibiotics so he is letting the patient stay for another 5 days. Will inform Jenniffer case preparer and liner.
--- NOTE | 2018-08-17 10:51 | NUR ---
IV ABX: SPOKE TO ON [facility] ABOUT HD CENTER INABILITY TO GIVE ABX DAILY X 14 DAYS. HE WILL WORK ON NEW APPROACH FOR ABX THERAPY
--- NOTE | 2018-08-17 11:00 | NUR ---
Called Jenniffer omalley: patient will stay for another 5 days per doctor Walt. Left a message.
--- NOTE | 2018-08-17 12:40 | NUR ---
Nutrition Follow-up Notes Wt.: 100.5 kg Pt was with SW and RN by bedside when rounded this am. per records pt with sepsis due to sacral wound. pt on ABX schedule. pt is currently on renal std cardiac diet with adequate PO of 75% x 6 per RN doc. pt also on prostat 1 packet bid Est. Needs: 1500 kcal to 2000 kcal (15-20 kcal/kgBW), 101 gms to 122 gms pro (1.0-1.2 gms/kgBW). Will continue to monitor pertinent labs and reassess nutrient needs prn Labs: CREAT 5.36 H, CA 7.4 L, Skin: Cullen scale 14, mod risk, pt with sacral ulcers per civil transportation engineer. refer to WC notes for details. noted pt on nephrovite and Vit C GI: Pt had 1 BM yesterday per civil transportation engineer. PES: Altered nutrition related lab values r/t current/chronic medical condition aeb hypokalemia, elev. renal labs, hypocalcemia and mod hypoalbuminemia Increased nutrient needs r/t current chronic medical condition aeb ESRD on HD, wound healing, mod hypoalbuminemia Obesity r.t excessive PO intake aeb 201% IBW, BMI 40.5 kg/m2 and increased body adiposity Will continue to monitor PO intake, skin status, pertinent labs and weight trend. F/u in 3 to 5 days. Rec.: 1.) Continue close supervision with meals. 2.) Refer to RD for further nutrition educ. and weight monitoring upon discharge. 3.) Continue current plan of care.
[2018-08-17 13:00] VITALS: BP 145/80
--- NOTE | 2018-08-17 13:29 | NUR ---
Repaged physical therapist re: patient requesting to get up to chair.
--- NOTE | 2018-08-17 13:31 | NUR ---
Physical therapist called back. PT staff states "we just got her".
--- NOTE | 2018-08-17 13:50 | NUR ---
Called photoresist contact printer Maryam re: to confirmed if patient left. Cannot leave message, inbox is full.
--- NOTE | 2018-08-17 13:52 | NUR ---
Called security, no answer. Message left.
--- NOTE | 2018-08-17 14:00 | NUR ---
Recalled security. Spoke to Zach, informed him that patient left without notifying us and asked if they could look around to see if patient is within the facility.
--- NOTE | 2018-08-17 14:04 | NUR ---
Called PBX to overhead patient.
--- NOTE | 2018-08-17 14:37 | NUR ---
Patient is back in her room. Informed her to inform us if leaving the unit.
[2018-08-17 16:00] VITALS: BP 160/94
[2018-08-17] MEDS: DOXEPIN HCL 150 MG PO SCH (18:00)
--- NOTE | 2018-08-17 19:00 | NUR ---
Closing note Patient resting in bed, no signs of distress noted.
--- NOTE | 2018-08-17 19:40 | NUR ---
Opening Shift Note Assumed care of patient, awake and alert oriented x4. No S/S of distress/SOB noted. Call light is within reach of the patient and bed is in lowest locked position. Instructed on POC and to call for assist PRN.
[2018-08-17] MEDS: TEMAZEPAM 15 MG CAP PO PRN (20:33)
[2018-08-17 22:11] VITALS: BP 162/79
[2018-08-17] MEDS: QUEtiapine FUMARATE 25 MG TAB PO SCH (22:15)
[2018-08-18] MEDS: MEROPENEM 500MG IVPB 50 ML IV SCH ×2 (02:51→16:13)
[2018-08-18 05:44] VITALS: BP 94/60
[2018-08-18] MEDS: SEVELAMER 800 MG TAB PO SCH ×3 (06:34→18:13)
[2018-08-18] MEDS: CARISOPRODOL 350 MG TAB PO SCH ×4 (06:34→22:28)
[2018-08-18] MEDS: DOCUSATE SOD 100 MG CAP PO SCH ×3 (06:35→22:27)
[2018-08-18] MEDS: TIZANIDINE HYDROCHLORIDE PO SCH ×3 (06:35→22:30)
--- NOTE | 2018-08-18 07:04 | NUR ---
Closing note: Patient is awake and alert resting in bed with breaths even and unlabored. No S/S of distress noted. Call light is within reach of the patient and bed is in lowest locked position. Will endorse care to day shift nurse.
[2018-08-18] MEDS ORDERED: SODIUM CHL 0.9% 1000 ML BAG XX ONE (08:00)
[2018-08-18] MEDS: Pro-Stat SF 30ml Vanilla PO SCH ×2 (08:00→18:00)
[2018-08-18] MEDS: LINEZOLID 600MG/300ML 300 ML IV SCH ×2 (08:49→20:40)
[2018-08-18] MEDS: GABAPENTIN 100 MG CAP PO SCH ×2 (08:50→22:27)
[2018-08-18] MEDS: PANTOPRAZOLE 40 MG TAB PO SCH (08:50)
[2018-08-18] MEDS: ASCORBIC ACID 500 MG TAB PO SCH ×2 (08:50→22:26)
[2018-08-18] MEDS: B-COMPLEX W/ C & FOLIC ACID(NEPHROVITE TAB) PO SCH (08:50)
[2018-08-18] MEDS: ALPRAZolam 0.25 MG TAB PO SCH (08:50)
[2018-08-18 09:00] VITALS: BP 88/55
[2018-08-18] MEDS: CARVEDILOL 12.5 MG TAB PO SCH ×2 (10:00→22:29)
[2018-08-18] MEDS: LISINOPRIL 20 MG TAB PO SCH (10:00)
[2018-08-18] MEDS: hydrALAZINE HCL 25 MG TAB PO SCH ×2 (10:00→22:26)
[2018-08-18] MEDS: OXYCODONE W/ ACETAMINOPHEN 5/325MG TABLET PO PRN ×2 (10:11→19:15)
--- NOTE | 2018-08-18 10:44 | NUR ---
DR. CHRISTIANSEN AT BEDSIDE.
[2018-08-18] MEDS ORDERED: LEVO200T7 PO (11:36)
[2018-08-18] MEDS ORDERED: LEVOTHYROXINE SODIUM 100 MCG TAB PO ONE (11:45)
[2018-08-18 13:00] VITALS: BP 151/91
--- NOTE | 2018-08-18 13:33 | NUR ---
D/C SPOKE TO DR CHRISTIANSEN YESTERDAY ABOUT GETTING PT D/C AND SUGGESTED MAYBE PT CAN GO HOME ON PO ABX AND IV ABX AT HD. PT'S INSURANCE ONLY ALLOWS HER TO RECEIVE IV ABX AT HD. HD CENTER CANNOT ACCOMMODATE 2 IV ABX DAILY.
[2018-08-18] MEDS: CINACALCET HYDROCHLORIDE 30 MG TAB PO SCH (14:22)
--- NOTE | 2018-08-18 15:00 | NUR ---
[facility]OPEN[facility] HELD FOR NOW, PATIENT IS STILL ON DIALYSIS.
[2018-08-18 16:00] VITALS: BP 131/69
--- NOTE | 2018-08-18 16:02 | NUR ---
[facility]OPEN[facility] HELD FOR NOW, PATIENT IS STILL ON DIALYSIS. Addendum: 08/18/18 at 1603 by SIRI MORRISON RN WRONG TIME.
--- NOTE | 2018-08-18 16:12 | NUR ---
RECEIVED REPORT FROM DIALYSIS NURSE. DIALYSIS NURSED STATES 2 LITERS REMOVED AND LATEST BP IS 136/49 [facility].
[2018-08-18] MEDS: DOXEPIN HCL 150 MG PO SCH (18:00)
--- NOTE | 2018-08-18 19:15 | NUR ---
CLOSING NOTE PATIENT RESTING IN BED, NO SIGNS OF DISTRESS NOTED. WILL GIVE REPORT TO NIGHT RN.
--- NOTE | 2018-08-18 19:35 | NUR ---
Opening Shift Note Assumed care of patient, awake and alert oriented x4. No S/S of distress/SOB noted. Bed is in lowest locked position and call light is within reach of the patient. Instructed on POC and to call for assist PRN.
[2018-08-18] MEDS ORDERED: EPOETIN ALFA 10,000 UNIT/1 ML VIAL SC ONE (21:00)
[2018-08-18 22:00] VITALS: BP 124/63
[2018-08-18 22:01] LABS: Basophils # (auto) 0.1 uL; Basophils % (auto) 0.9 % (0.0-2.0); Eosinophils # (auto) 0.3 uL; Eosinophils % (auto) 5.3 % (0.0-7.0); Hematocrit 27.9 % (36.0-46.0); Hemoglobin 9.2 g/dL (12.2-16.2); Lymphocytes # (auto) 2.1 uL; Lymphocytes % (auto) 33.1 % (10.0-50.0); Mean Corpuscular Hemoglobin 30.9 pg (28.0-32.0); Mean Corpuscular Volume 93.6 fL (80.0-100.0); Monocytes % (auto) 15.3 % (0.0-12.0); Neutrophils # (auto) 2.8 uL; Neutrophils % (auto) 45.4 % (37.0-80.0); Platelet Count (auto) 154 10^3/uL (140-450); Red Blood Cells 2.98 10^6/uL (4.0-5.20); White Blood Cell 6.3 10^3/uL (4.4-10.8)
[2018-08-18] MEDS: TEMAZEPAM 15 MG CAP PO PRN (22:25)
[2018-08-18] MEDS: QUEtiapine FUMARATE 25 MG TAB PO SCH (22:30)
[2018-08-18 22:40] LABS: Red Cell Distribution Width 20.6 % (11.8-14.3)
[2018-08-19] MEDS: MEROPENEM 500MG IVPB 50 ML IV SCH ×2 (02:33→14:56)
[2018-08-19 05:56] LABS: Basophils # (auto) 0.1 uL; Eosinophils # (auto) 0.3 uL; Eosinophils % (auto) 5.7 % (0.0-7.0); Hemoglobin 8.3 g/dL (12.2-16.2); Lymphocytes # (auto) 1.8 uL; Mean Corpuscular Hgb Conc. 33.3 g/dL (32.0-36.0); Monocytes # (auto) 0.8 uL; Monocytes % (auto) 16.4 % (0.0-12.0); Neutrophils % (auto) 39.9 % (37.0-80.0); Platelet Count (auto) 127 10^3/uL (140-450); Red Blood Cells 2.69 10^6/uL (4.0-5.20); Red Cell Distribution Width 20.9 % (11.8-14.3)
[2018-08-19 06:00] VITALS: BP 114/70
[2018-08-19 06:17] LABS: BUN/Creatinine Ratio 3.2; Calcium 7.7 mg/dL (8.5-10.1); Potassium 3.6 mmol/L (3.5-5.1)
[2018-08-19] MEDS: CARISOPRODOL 350 MG TAB PO SCH ×4 (06:40→22:22)
[2018-08-19] MEDS: OXYCODONE W/ ACETAMINOPHEN 5/325MG TABLET PO PRN (06:41)
[2018-08-19] MEDS: DOCUSATE SOD 100 MG CAP PO SCH ×3 (06:41→22:21)
[2018-08-19] MEDS: LEVOTHYROXINE SODIUM 100 MCG TAB PO SCH (06:42)
[2018-08-19] MEDS: TIZANIDINE HYDROCHLORIDE PO SCH ×3 (06:43→22:00)
--- NOTE | 2018-08-19 06:46 | NUR ---
Patient refused scheduled 7am Renagel pill at this time: Patient stated that she wants to take the Renagel pill when breakfast comes. She does not want to take it at this time. Will endorse to day shift nurse.
--- NOTE | 2018-08-19 07:46 | NUR ---
CLOSING NOTE: PATIENT IS RESTING IN BED WITH NO S/S OF DISTRESS NOTED. BREATHS EVEN AND UNLABORED. BED IS IN LOWEST LOCKED POSITION AND CALL LIGHT IS WITHIN REACH OF THE PATIENT. CARE ENDORSED TO DAY SHIFT NURSE
[2018-08-19 08:00] VITALS: BP 134/75
[2018-08-19] MEDS: Pro-Stat SF 30ml Vanilla PO SCH ×2 (08:00→18:00)
--- NOTE | 2018-08-19 08:00 | NUR ---
ASSESSMENT NOTE PT IS ALERT ORIENTED X4, RESTING IN A SPECIALTY BED WITH AIR MATTRESS, NO DISTRESS NOTED, REPOSITION EVERY 2 HOURS, PT HAS AN OPTIFOAM AT THE SACRUM AREA, DRY AND CLEAN, A PRESSURE SORE NOTED AT THE SACRUM AREA, PT IS ABLE TO VERBALIS HER NEEDS, CONTINUE ON CONTACT ISOLATION, MONITORING EVERY SHIFT.
[2018-08-19] MEDS: LINEZOLID 600MG/300ML 300 ML IV SCH ×2 (08:17→20:52)
[2018-08-19 09:00] VITALS: BP 138/83
[2018-08-19] MEDS: B-COMPLEX W/ C & FOLIC ACID(NEPHROVITE TAB) PO SCH (09:49)
[2018-08-19] MEDS: PANTOPRAZOLE 40 MG TAB PO SCH (09:49)
[2018-08-19] MEDS: SEVELAMER 800 MG TAB PO SCH ×3 (09:49→18:32)
[2018-08-19] MEDS: GABAPENTIN 100 MG CAP PO SCH ×2 (09:50→22:21)
[2018-08-19] MEDS: LISINOPRIL 20 MG TAB PO SCH (09:50)
[2018-08-19] MEDS: hydrALAZINE HCL 25 MG TAB PO SCH ×2 (09:50→22:19)
[2018-08-19] MEDS: ASCORBIC ACID 500 MG TAB PO SCH ×2 (09:50→22:20)
[2018-08-19] MEDS: ALPRAZolam 0.25 MG TAB PO SCH (09:50)
[2018-08-19] MEDS: CARVEDILOL 12.5 MG TAB PO SCH ×2 (09:51→22:26)
[2018-08-19] MEDS: CINACALCET HYDROCHLORIDE 30 MG TAB PO SCH (09:52)
--- NOTE | 2018-08-19 11:45 | NUR ---
PHYSICAL THERAPY AT BED SIDE ASSISTING PT TO GET OUT OF BED TO HER SPECIAL WHEEL CHAIR, PT TOLERATED WELL.
--- NOTE | 2018-08-19 12:00 | NUR ---
PT'S AT BED SIDE, ESCORT PATIENT TO THE LOBBY, PT SIGN AMA, CHARGE NURSE DAI MARTIN AWARE.
[2018-08-19 12:11] VITALS: BP 103/61
[2018-08-19 16:35] VITALS: BP 153/89
--- NOTE | 2018-08-19 18:30 | NUR ---
PT IS SITTING UP IN BED, EATING DINNER, NO DISTRESS NOTED.
[2018-08-19] MEDS: DOXEPIN HCL 150 MG PO SCH (18:33)
--- NOTE | 2018-08-19 18:49 | NUR ---
PT CONTINUE STABLE, CONTINUE REPOSITIONING PT EVERY 2 HOURS AT ALL TIMES.
--- NOTE | 2018-08-19 19:00 | NUR ---
OPENING NOTE ASSUMED CARE OF PATIENT. PATIENT IS SITTING UP IN BED. NO S/S OF DISTRESS. A&OX4. BED IS AT LOWEST POSITION, CALL LIGHT IN REACH.
[2018-08-19 22:00] VITALS: BP 129/59
[2018-08-19] MEDS: TEMAZEPAM 15 MG CAP PO PRN (22:20)
[2018-08-19] MEDS: QUEtiapine FUMARATE 25 MG TAB PO SCH (22:21)
[2018-08-20] VITALS (7 sets, daily range): BP systolic 126–169; BP diastolic 58–95
[2018-08-20] MEDS: MEROPENEM 500MG IVPB 50 ML IV SCH ×2 (03:19→15:14)
[2018-08-20] MEDS: TIZANIDINE HYDROCHLORIDE PO SCH ×3 (06:00→22:00)
[2018-08-20] MEDS: DOCUSATE SOD 100 MG CAP PO SCH ×3 (06:31→22:45)
[2018-08-20] MEDS: LEVOTHYROXINE SODIUM 100 MCG TAB PO SCH (06:31)
[2018-08-20] MEDS: SEVELAMER 800 MG TAB PO SCH ×3 (06:32→18:33)
[2018-08-20] MEDS: CARISOPRODOL 350 MG TAB PO SCH ×4 (06:32→22:44)
[2018-08-20] MEDS: OXYCODONE W/ ACETAMINOPHEN 5/325MG TABLET PO PRN ×2 (06:45→18:32)
[2018-08-20] MEDS: Pro-Stat SF 30ml Vanilla PO SCH ×2 (08:00→18:00)
[2018-08-20] MEDS: PANTOPRAZOLE 40 MG TAB PO SCH (09:15)
[2018-08-20] MEDS: ASCORBIC ACID 500 MG TAB PO SCH ×2 (09:15→22:44)
[2018-08-20] MEDS: GABAPENTIN 100 MG CAP PO SCH ×2 (09:15→22:44)
[2018-08-20] MEDS: hydrALAZINE HCL 25 MG TAB PO SCH ×2 (09:17→22:51)
[2018-08-20] MEDS: CARVEDILOL 12.5 MG TAB PO SCH ×2 (09:17→22:45)
[2018-08-20] MEDS: LISINOPRIL 20 MG TAB PO SCH (09:18)
[2018-08-20] MEDS: LINEZOLID 600MG/300ML 300 ML IV SCH ×2 (09:18→20:34)
[2018-08-20] MEDS: ALPRAZolam 0.25 MG TAB PO SCH (09:18)
[2018-08-20] MEDS: CINACALCET HYDROCHLORIDE 30 MG TAB PO SCH (10:00)
--- NOTE | 2018-08-20 11:00 | NUR ---
WOUND CARE NOTE: Wound care in to see patient for reevaluation of sacral pressure injuries that are present on admission. Patient continue resting on air bed in Rm. 235. She's awake, alert and oriented. She's in no stated pain at this time. She's able to assist in turning and repositioning. Her current Cullen score is 17. PT at bedside to transfer patient to her motorized wheel chair. Examine patient's sacral pressure injury prior transfer. Patient's Stage 3 pressure injuries to Lt sacrum (3x3cm) medial sacrum (4x1.5cm) and Rt sacrum (2x3cm)remain the same, pale pink, no measurable depth, no drainage/odor noted. Cleansed patient's sacral pressure injuries as ordered, photograph taken for reference and changed the dressing as ordered. Patient tolerated well. PT at bedside to transfer patient to motorized wheel chair. RECOMMENDATION: Continuation of all wound care orders prescribed by MD, continue with skin/wound plan of care, continue monitoring by wound care while patient is hospitalized. Addendum: 08/20/18 at 1733 by Justine Sampson RN Amended: Links added.
--- NOTE | 2018-08-20 12:03 | NUR ---
PATIENT LEFT OUT BY HER OWN VIA ELECTRIC WHEEL CHAIR TO THE LOBBY TO SEE HER , PT IS STABLE NO DISTRESS NOTED.
--- NOTE | 2018-08-20 12:28 | NUR ---
PT IS BACK TO HER ROOM, VIA ELECTRIC WHEEL CHAIR NO DISTRESS NOTED
--- NOTE | 2018-08-20 14:30 | NUR ---
FAMILY PT'S AT BED SIDE
[2018-08-20] MEDS: B-COMPLEX W/ C & FOLIC ACID(NEPHROVITE TAB) PO SCH (15:13)
[2018-08-20] MEDS: DOXEPIN HCL 150 MG PO SCH (18:00)
--- NOTE | 2018-08-20 18:35 | NUR ---
PATIENT CONTINUE STABLE, SITTING UP EATING DINNER, CONTINUE MONITORING.
--- NOTE | 2018-08-20 19:00 | NUR ---
OPENING NOTE PATIENT IS UP IN BED. IS AT BEDSIDE. A&OX4. NO S/S OF DISTRESS. CALL LIGHT IN REACH. BED IS AT LOWEST POSITION.
[2018-08-20] MEDS: TEMAZEPAM 15 MG CAP PO PRN (22:50)
[2018-08-20] MEDS: QUEtiapine FUMARATE 25 MG TAB PO SCH (22:51)
[2018-08-21] MEDS: MEROPENEM 500MG IVPB 50 ML IV SCH ×2 (02:58→14:24)
[2018-08-21 06:00] LABS: Basophils # (auto) 0.1 uL; Basophils % (auto) 0.9 % (0.0-2.0); Eosinophils # (auto) 0.3 uL; Eosinophils % (auto) 5.5 % (0.0-7.0); Hematocrit 26.1 % (36.0-46.0); Hemoglobin 8.9 g/dL (12.2-16.2); Lymphocytes # (auto) 2.2 uL; Lymphocytes % (auto) 35.8 % (10.0-50.0); Mean Corpuscular Hemoglobin 31.9 pg (28.0-32.0); Mean Corpuscular Volume 93.8 fL (80.0-100.0); Monocytes # (auto) 0.9 uL; Monocytes % (auto) 13.9 % (0.0-12.0); Neutrophils # (auto) 2.7 uL; Neutrophils % (auto) 43.9 % (37.0-80.0); Nucleated Red Blood Cells % 0.1 %; Platelet Count (auto) 146 10^3/uL (140-450); Red Blood Cells 2.78 10^6/uL (4.0-5.20); White Blood Cell 6.2 10^3/uL (4.4-10.8)
[2018-08-21] MEDS: TIZANIDINE HYDROCHLORIDE PO SCH ×3 (06:00→21:14)
[2018-08-21] MEDS: DOCUSATE SOD 100 MG CAP PO SCH ×3 (06:00→21:08)
[2018-08-21 06:08] LABS: Red Cell Distribution Width 20.2 % (11.8-14.3)
[2018-08-21] MEDS: SEVELAMER 800 MG TAB PO SCH ×3 (06:43→18:57)
[2018-08-21] MEDS: LEVOTHYROXINE SODIUM 100 MCG TAB PO SCH (06:44)
[2018-08-21] MEDS: CARISOPRODOL 350 MG TAB PO SCH ×4 (06:45→21:06)
[2018-08-21] MEDS ORDERED: SODIUM CHL 0.9% 1000 ML BAG XX ONE (07:00)
--- NOTE | 2018-08-21 08:00 | NUR ---
Dialysis nurse at bedside.
[2018-08-21 08:51] VITALS: BP 154/86
--- NOTE | 2018-08-21 11:15 | NUR ---
Hospitalist rounding. Patient is currently asleep.
--- NOTE | 2018-08-21 11:45 | NUR ---
Dialysis completed 2.5 L taken off. Blood pressure reported 146/75
[2018-08-21] MEDS: LINEZOLID 600MG/300ML 300 ML IV SCH ×2 (12:13→21:06)
[2018-08-21] MEDS: Pro-Stat SF 30ml Vanilla PO SCH ×2 (12:13→18:57)
[2018-08-21] MEDS: hydrALAZINE HCL 25 MG TAB PO SCH ×2 (12:14→21:08)
[2018-08-21] MEDS: B-COMPLEX W/ C & FOLIC ACID(NEPHROVITE TAB) PO SCH (12:14)
[2018-08-21] MEDS: PANTOPRAZOLE 40 MG TAB PO SCH (12:15)
[2018-08-21] MEDS: ASCORBIC ACID 500 MG TAB PO SCH ×2 (12:15→21:07)
[2018-08-21] MEDS: GABAPENTIN 100 MG CAP PO SCH ×2 (12:15→21:06)
[2018-08-21] MEDS: ALPRAZolam 0.25 MG TAB PO SCH (12:16)
[2018-08-21] MEDS: LISINOPRIL 20 MG TAB PO SCH (12:16)
[2018-08-21] MEDS: CARVEDILOL 12.5 MG TAB PO SCH ×2 (12:17→21:09)
[2018-08-21] MEDS: CINACALCET HYDROCHLORIDE 30 MG TAB PO SCH (12:49)
[2018-08-21 13:00] VITALS: BP 114/74
[2018-08-21] MEDS ORDERED: ONDANSETRON HCL 4 MG/2 ML VIAL IV PRN (14:30)
[2018-08-21 16:49] VITALS: BP 104/50
[2018-08-21] MEDS: DOXEPIN HCL 150 MG PO SCH (18:00)
[2018-08-21] MEDS: OXYCODONE W/ ACETAMINOPHEN 5/325MG TABLET PO PRN (19:00)
--- NOTE | 2018-08-21 19:40 | NUR ---
Opening Shift Note Assumed care of patient, awake and alert x4. No S/S of distress/SOB or pain noted. Instructed on plan of care and to call for assistance as needed. Bed is locked in lowest position, side rails x 2 are up, and call light is within reach.
[2018-08-21] MEDS ORDERED: EPOETIN ALFA 10,000 UNIT/1 ML VIAL SC ONE (21:00)
[2018-08-21] MEDS: QUEtiapine FUMARATE 25 MG TAB PO SCH (21:06)
[2018-08-21] MEDS: TEMAZEPAM 15 MG CAP PO PRN (21:36)
[2018-08-21 22:00] VITALS: BP 136/79
[2018-08-22] MEDS: MEROPENEM 500MG IVPB 50 ML IV SCH (03:27)
[2018-08-22] MEDS: OXYCODONE W/ ACETAMINOPHEN 5/325MG TABLET PO PRN ×2 (03:53→12:59)
[2018-08-22 05:00] VITALS: BP 154/86
[2018-08-22] MEDS: DOCUSATE SOD 100 MG CAP PO SCH (06:00)
[2018-08-22] MEDS: TIZANIDINE HYDROCHLORIDE PO SCH (06:00)
[2018-08-22] MEDS: LEVOTHYROXINE SODIUM 100 MCG TAB PO SCH (06:57)
[2018-08-22] MEDS: CARISOPRODOL 350 MG TAB PO SCH ×2 (06:57→12:55)
[2018-08-22] MEDS: SEVELAMER 800 MG TAB PO SCH ×2 (07:00→12:55)
--- NOTE | 2018-08-22 07:46 | NUR ---
Opening Shift Note Assumed care of patient, awake and alert laying supine in bed. No S/S of distress/SOB or pain. Instructed on POC and to call for assist PRN, will continue to monitor for changes Q1hr and PRN.
--- NOTE | 2018-08-22 07:48 | NUR ---
CLOSING SHIFT NOTE Endorsed patient care to Shivani MARTIN.
[2018-08-22 08:39] VITALS: BP 147/89
[2018-08-22] MEDS: LINEZOLID 600MG/300ML 300 ML IV SCH (09:02)
[2018-08-22] MEDS: Pro-Stat SF 30ml Vanilla PO SCH (09:03)
[2018-08-22] MEDS: hydrALAZINE HCL 25 MG TAB PO SCH (09:04)
[2018-08-22] MEDS: CARVEDILOL 12.5 MG TAB PO SCH (09:04)
[2018-08-22] MEDS: B-COMPLEX W/ C & FOLIC ACID(NEPHROVITE TAB) PO SCH (09:04)
[2018-08-22] MEDS: PANTOPRAZOLE 40 MG TAB PO SCH (09:05)
[2018-08-22] MEDS: GABAPENTIN 100 MG CAP PO SCH (09:05)
[2018-08-22] MEDS: ALPRAZolam 0.25 MG TAB PO SCH (09:06)
[2018-08-22] MEDS: ASCORBIC ACID 500 MG TAB PO SCH (09:06)
[2018-08-22] MEDS: CINACALCET HYDROCHLORIDE 30 MG TAB PO SCH (09:07)
[2018-08-22] MEDS: LISINOPRIL 20 MG TAB PO SCH (09:07)
--- NOTE | 2018-08-22 11:00 | NUR ---
Photo Discharge photo taken.
--- NOTE | 2018-08-22 11:37 | NUR ---
HH: SPOKE TO JAVIER HERRERA AT [facility] FOR RESUMPTION OF CARE FOR PT
[2018-08-22] MEDS ORDERED: SODIUM CHL 0.9% 1000 ML BAG XX ONE (11:45)
[2018-08-22 12:41] VITALS: BP 128/69
[2018-08-22 15:06] VITALS: BP 128/69
--- NOTE | 2018-08-22 17:00 | NUR ---
Discharge instructions given as ordered. Encourage to follow up with PMD as instructed. All questions and concerns addressed. Patient verbalized understanding. Medication reconciliation form completed and copy given to patient. Home medications held in Pharmacy returned to patient. IV removed with catheter intact and pressure dressing applied. Sanchez catheter remained in place. Patient stated she came in with catheter. Patient taken to vehicle via wheelchair with all personal belongings, accompanied by family member. No distress noted at time of departure.
--- NOTE | 2018-08-22 17:25 | NUR ---
Prescription Patient was given prescription, however the second sheet (copy section) was still left in patient's chart. Attempts to contact patient was unsuccessful. Phone call went unanswered, voice mail is not yet set up.
[2018-08-22] MEDS ORDERED: EPOETIN ALFA 10,000 UNIT/1 ML VIAL SC ONE (21:00)
== END 2018-08-22 17:00 | disposition home or self-care (01) | DRG 871 ==
LOC: EDBD 14:52 → ER 14:55 → OVERFLOW 18:37 → EAST 21:36
PROVIDERS: ADMIT Nurse Practitioner Acute Care; ATTEND Family Medicine
PROC: 5A1D70Z Performance of Urinary Filtration, Intermittent, Less than 6 Hours Per Day (ICD-10-PCS; 2018-08-14)
PROC: 5A1D70Z Performance of Urinary Filtration, Intermittent, Less than 6 Hours Per Day (ICD-10-PCS; 2018-08-16)
PROC: 5A1D70Z Performance of Urinary Filtration, Intermittent, Less than 6 Hours Per Day (ICD-10-PCS; 2018-08-18)
PROC: 5A1D70Z Performance of Urinary Filtration, Intermittent, Less than 6 Hours Per Day (ICD-10-PCS; principal; 2018-08-21)
DX: A41.9 Sepsis, unspecified organism (principal); N18.6 End stage renal disease; E43 Unspecified severe protein-calorie malnutrition; E87.1 Hypo-osmolality and hyponatremia; N25.81 Secondary hyperparathyroidism of renal origin; I13.2 Hypertensive heart and chronic kidney disease with heart failure and with stage 5 chronic kidney disease, or end stage renal disease; Z68.41 Body mass index [BMI] 40.0-44.9, adult; N39.0 Urinary tract infection, site not specified; E11.622 Type 2 diabetes mellitus with other skin ulcer; L89.152 Pressure ulcer of sacral region, stage 2; E66.01 Morbid (severe) obesity due to excess calories; Z74.01 Bed confinement status; Z99.2 Dependence on renal dialysis; D53.9 Nutritional anemia, unspecified; I50.9 Heart failure, unspecified; D63.1 Anemia in chronic kidney disease; E03.9 Hypothyroidism, unspecified; E66.9 Obesity, unspecified; E87.6 Hypokalemia; G89.29 Other chronic pain; M54.9 Dorsalgia, unspecified; L89.159 Pressure ulcer of sacral region, unspecified stage; L89.92 Pressure ulcer of unspecified site, stage 2; Z16.24 Resistance to multiple antibiotics; Z79.899 Other long term (current) drug therapy; Z80.3 Family history of malignant neoplasm of breast; Z82.49 Family history of ischemic heart disease and other diseases of the circulatory system
CPT/HCPCS: 36415; 71045; 80048; 80053; 81001; 82306; 82728; 83540; 83550; 83605; 83735; 83970; 84100; 84443; 85025; 85610; 85730; 87040; 87081; 87086; 87088; 87186; 90935; 96361; 96365; 96366; 96367; 96375; 97110; 97163; 97530; A6257; G0378; J0696; J0885; J1642; J2185; J2405; J2543

== ENCOUNTER 2018-08-26 22:26 | Inpatient (IN) | payer MEDICARE, MEDICAID ==
[~2018-08-26] VITALS: Ht 157.5 cm; Wt 94.8 kg
[~2018-08-26 22:26] MED LIST changes: +CLIN-188 PO; +HYDR100T22 PO; +LEVO200T7 PO
[2018-08-26] MEDS ORDERED: hydrALAZINE HCL 20 MG/ML VL IV ONE (22:45)
[2018-08-26] MEDS ORDERED: LABETALOL HCL 5 MG/ML ML 20ML VIAL IV ONE (22:45)
[2018-08-26] MEDS ORDERED: IPRATROPIUM BROM 0.5 MG/2.5ML INH SOL NEB ONE (23:00)
[2018-08-26] MEDS ORDERED: ALBUTEROL SULF 2.5 MG/0.5ML(0.5%) NEB SOLN NEB ONE (23:00)
[2018-08-26 23:18] LABS: Basophils # (auto) 0.1 uL; Basophils % (auto) 0.7 % (0.0-2.0); Eosinophils # (auto) 0.3 uL; Eosinophils % (auto) 3.4 % (0.0-7.0); Hematocrit 28.8 % (36.0-46.0); Hemoglobin 9.5 g/dL (12.2-16.2); Lymphocytes # (auto) 2.2 uL; Lymphocytes % (auto) 25.1 % (10.0-50.0); Mean Corpuscular Hemoglobin 32.3 pg (28.0-32.0); Mean Corpuscular Hgb Conc. 33.1 g/dL (32.0-36.0); Mean Corpuscular Volume 97.7 fL (80.0-100.0); Monocytes # (auto) 0.9 uL; Neutrophils # (auto) 5.3 uL; Neutrophils % (auto) 60.8 % (37.0-80.0); Nucleated Red Blood Cells % 0.1 %; Platelet Count (auto) 217 10^3/uL (140-450); Red Blood Cells 2.95 10^6/uL (4.0-5.20); White Blood Cell 8.7 10^3/uL (4.4-10.8)
[2018-08-26 23:30] LABS: INR 1.02 (0.9-1.15); Partial Thromboplastin Time 25.7 sec (23.78-33.04); Prothrombin Time 10.9 sec (9.27-12.13)
[2018-08-27 00:02] LABS: BUN/Creatinine Ratio 3.6; Bilirubin, Total 0.3 mg/dL (0.2-1.0); Potassium 4.1 mmol/L (3.5-5.1); Total Protein 7.6 g/dL (6.4-8.2)
[2018-08-27 00:03] LABS: Albumin 2.8 g/dL (3.4-5.0); Magnesium 2.2 mg/dL (1.6-2.6)
[2018-08-27] MEDS ORDERED: ACETAMINOPHEN 500 MG TAB PO PRN (03:15)
[2018-08-27] MEDS ORDERED: ALPRAZolam 0.5 MG TAB PO PRN (03:15)
[2018-08-27] MEDS ORDERED: ONDANSETRON HCL 4 MG/2 ML VIAL IV PRN (03:15)
[2018-08-27] MEDS ORDERED: FUROSEMIDE 40 MG/4 ML VIAL IV ONE (03:45)
[2018-08-27] MEDS ORDERED: ACETAMINOPHEN 500 MG TAB PO ONE (03:45)
[2018-08-27] MEDS ORDERED: LORazepam 2MG/ML-1ML VIAL IV PRN (04:00)
[2018-08-27] MEDS: IPRATROPIUM BROM 0.5 MG/2.5ML INH SOL NEB SCH ×5 (06:11→22:35)
[2018-08-27] MEDS: ALBUTEROL SULF 2.5 MG/0.5ML(0.5%) NEB SOLN NEB SCH ×5 (06:11→22:35)
[2018-08-27] MEDS: PANTOPRAZOLE 40 MG TAB PO SCH (06:34)
[2018-08-27 06:47] LABS: BUN/Creatinine Ratio 4.1; Potassium 4.1 mmol/L (3.5-5.1)
[2018-08-27 07:22] VITALS: BP 121/79
[2018-08-27] MEDS: LEVOTHYROXINE SODIUM 100 MCG TAB PO SCH (07:30)
[2018-08-27 08:09] LABS: Hematocrit 25.7 % (36.0-46.0); Hemoglobin 8.5 g/dL (12.2-16.2); Mean Corpuscular Hemoglobin 32.2 pg (28.0-32.0); Mean Corpuscular Hgb Conc. 32.9 g/dL (32.0-36.0); Mean Corpuscular Volume 97.9 fL (80.0-100.0); Platelet Count (auto) 158 10^3/uL (140-450); Red Blood Cells 2.62 10^6/uL (4.0-5.20); White Blood Cell 7.4 10^3/uL (4.4-10.8)
[2018-08-27 08:12] LABS: Basophils % (manual) 0 (0.0-2.0); Blast Cells 0; Metamyelocytes % 0; Myelocytes % 0; Promyelocytes % 0; Reactive Lymphocytes 0
[2018-08-27] MEDS: SEVELAMER 800 MG TAB PO SCH ×3 (08:45→18:34)
[2018-08-27 10:03] LABS: Urine Bacteria NONE SEEN /hpf (None Seen); Urine Blood TRACE /uL (Negative); Urine Specific Gravity 1.021 (1.001-1.035); Urine WBC 4 /hpf (0 - 5)
[2018-08-27] MEDS: hydrALAZINE HCL 25 MG TAB PO SCH ×2 (10:35→21:40)
[2018-08-27] MEDS: LISINOPRIL 20 MG TAB PO SCH (10:35)
[2018-08-27] MEDS: DOCUSATE SOD 100 MG CAP PO SCH ×2 (10:35→21:40)
[2018-08-27] MEDS: ENOXAPARIN SOD 30 MG/0.3 ML SYRINGE SC SCH (10:35)
--- NOTE | 2018-08-27 11:04 | NUR ---
WOUND CARE NOTE: Wound care in to see patient per wound care request regarding "sacral wounds" that are noted present on admission. Laura nurse took photograph of patient's pressure injuries upon admission for reference. Patient is 63 years old female with admitting diagnosis of Acute on Chronic Resp Failure. Patient is resting in ER bed #4. Patient is awake, alert and oriented. She's in no stated pain at this time. She needs assistance in turning and repositioning and her current Cullen score is 14. Assess patient's sacral pressure injuries with the help of E.R. tech. Patient is noted with pressure injuries to Lt sacrum (3.5cmx3), pale pink, looks resolving, clean and dry; To medial sacrum (4x2.5cm) pale pink with thin brown scab and to Rt sacrum (5x4cm)red and moist. Sacral pressure injuries are full thickness but no measurable depth, no drainage/odor noted. Patient has history of chronic stage 3 pressure injuries to sacrum. Cleansed sacral wounds with wound cleanser, patted dry with gauze, applied Thera honey gel, covered with Opti foam sacral dressing. Intact, thin, brown scars/scabs noted to patient's heels appears to be from old resolving wounds. Repositioned patient for comfort facing her Rt side. Patient tolerated well. Nurse at bedside. RECOMMENDATION: Daily/PRN dressing change to sacral pressure injuries per MD order, Dietary consult due to presence of wounds, frequent turning and repositioning schedule as condition permits, redistribute pressure points with pillows, air mattress (ordered), elevate heels on pillows, continue monitoring by wound care while patient is hospitalized. Addendum: 08/27/18 at 1501 by Justine Sampson RN Amended: Links added.
[2018-08-27] MEDS: LINEZOLID 600MG TABLET PO SCH ×2 (11:05→21:40)
[2018-08-27] MEDS ORDERED: CARISOPRODOL 350 MG TAB PO ONE ×2 (13:15→22:30)
[2018-08-27 14:01] LABS: Band Neutrophils % (manual) 4; Eosinophils % (manual) 1 (0-7); Lymphocytes % (manual) 20 (10.0-50.0); Monocytes % (manual) 13 (0-12)
[2018-08-27 14:38] LABS: Basophils % (auto) 0.8 % (0.0-2.0); Eosinophils # (auto) 0.1 uL; Eosinophils % (auto) 2.2 % (0.0-7.0); Lymphocytes # (auto) 1.3 uL; Mean Corpuscular Volume 96.8 fL (80.0-100.0); Neutrophils # (auto) 3.7 uL
[2018-08-27 14:40] LABS: Basophils # (auto) 0 uL; Hematocrit 23.7 % (36.0-46.0); Hemoglobin 8.1 g/dL (12.2-16.2); Lymphocytes % (auto) 21.2 % (10.0-50.0); Mean Corpuscular Hemoglobin 32.9 pg (28.0-32.0); Monocytes # (auto) 0.9 uL; Monocytes % (auto) 14.4 % (0.0-12.0); Neutrophils % (auto) 61.4 % (37.0-80.0); Platelet Count (auto) 157 10^3/uL (140-450); Red Blood Cells 2.45 10^6/uL (4.0-5.20); Red Cell Distribution Width 18.8 % (11.8-14.3)
--- NOTE | 2018-08-27 18:36 | NUR ---
Telemetry admit from ER RACQUEL SAEZ admitted to Telemetry unit after SBAR received. Patient oriented to Gayathri Trevino, primary RN, unit, room, bed, and unit policies regarding patient care and visiting hours. Patient now on continuous telemetry monitoring, tele box # 42. Patient placed on bedside oxygen, weighed by bedscale and encouraged to call if they need something. All questions and concerns addressed, patient verbalized understanding. at bedside. Note:
[2018-08-27] MEDS: MORPHINE SULFATE 4 MG/ML SYR/VIAL IV PRN (20:36)
[2018-08-27] MEDS: ATORVASTATIN 20 MG TAB PO SCH (21:40)
[2018-08-27] MEDS: QUEtiapine FUMARATE 25 MG TAB PO SCH (21:40)
[2018-08-27 21:54] VITALS: BP 149/90
[2018-08-27] MEDS ORDERED: HYDROcodone-ACET 5/325MG TAB PO PRN (22:15)
[2018-08-28] VITALS (7 sets, daily range): BP systolic 125–149; BP diastolic 75–101
[2018-08-28] MEDS: ALBUTEROL SULF 2.5 MG/0.5ML(0.5%) NEB SOLN NEB SCH ×6 (02:05→22:49)
[2018-08-28] MEDS: IPRATROPIUM BROM 0.5 MG/2.5ML INH SOL NEB SCH ×6 (02:05→22:49)
[2018-08-28] MEDS: MORPHINE SULFATE 4 MG/ML SYR/VIAL IV PRN ×5 (04:26→23:44)
[2018-08-28 06:09] LABS: Calcium 7.5 mg/dL (8.5-10.1); Potassium 4.3 mmol/L (3.5-5.1)
[2018-08-28 06:12] LABS: BUN/Creatinine Ratio 5.1
[2018-08-28] MEDS: CARISOPRODOL 350 MG TAB PO SCH ×4 (06:25→21:56)
[2018-08-28] MEDS: PANTOPRAZOLE 40 MG TAB PO SCH (06:25)
[2018-08-28] MEDS: LEVOTHYROXINE SODIUM 100 MCG TAB PO SCH (06:26)
[2018-08-28] MEDS ORDERED: SODIUM CHL 0.9% 1000 ML BAG XX ONE (07:00)
[2018-08-28] MEDS: ENOXAPARIN SOD 30 MG/0.3 ML SYRINGE SC SCH (08:23)
[2018-08-28] MEDS: SEVELAMER 800 MG TAB PO SCH ×3 (08:23→17:50)
[2018-08-28] MEDS: DOCUSATE SOD 100 MG CAP PO SCH ×2 (08:23→21:55)
--- NOTE | 2018-08-28 09:10 | NUR ---
LAB REFUSAL PATIENT REFUSING MORNING LABS, EDUCATED PATIENT ON IMPORTANCE OF OBTAINING BLOOD WORK. VERBALIZED UNDERSTANDING, AND AGREED TO PARTICIPATE IN ONE HOUR.
[2018-08-28] MEDS: hydrALAZINE HCL 25 MG TAB PO SCH ×2 (10:00→21:54)
[2018-08-28] MEDS: LISINOPRIL 20 MG TAB PO SCH (10:00)
--- NOTE | 2018-08-28 12:00 | NUR ---
WOUND CARE WOUND TO THE SACRUM CLEANSED WITH WOUND CLEANSER ANS STERILE GAUZE, THERA HONEY APPLIED RECOMMENDED. MODERATE SEROUS DRAINAGE NOTED, WITH MILD ODOR. OPTIFOAM DRESSING APPLIED.
[2018-08-28] MEDS: LINEZOLID 600MG TABLET PO SCH ×2 (13:41→23:43)
[2018-08-28 14:02] LABS: Hematocrit 22.2 % (36.0-46.0); Hemoglobin 7.5 g/dL (12.2-16.2)
[2018-08-28 14:20] LABS: % Iron Saturation 7.5 % (15-50)
--- NOTE | 2018-08-28 15:06 | NUR ---
Nutrition Consult/assessment Notes please see attached link for complete assessment Est. Needs ABW [id number] kcal (25-27kcal/kgBW), 78-91 gms pro (1.2-1.4 gms/kgBW r/t HD, wounds). Will continue to monitor pertinent labs and reassess nutrient need prn Addendum: 08/28/18 at [address] Amended: Links added.
--- NOTE | 2018-08-28 19:15 | NUR ---
Opening Shift Note SBAR report received from Denise MARTIN. Assumed care of patient, awake and alert 4x and non ambulatory currently receiving Hemodialysis. At Central unit receiving Tx FOR ACUTE ON CHRONIC RESP. FAILURE. No distress/SOB or pain stated at the moment. Instructed on POC and to call for assist PRN, will continue to monitor for changes Q1hr and PRN. Physical assessment to follow and Dialysis nurse at bedside.
[2018-08-28] MEDS ORDERED: EPOETIN ALFA 10,000 UNIT/1 ML VIAL SC ONE (21:00)
--- NOTE | 2018-08-28 21:24 | NUR ---
HEMODIALYSIS DONE BP= 141/69 LW=303 REMOVED= 3L PATIENT ALERT AND ORIENTED, NO DISTRESS NOTED. PER DIALYSIS NURSE BLOOD PRESSURE IS SAFE TO DELIVER ANTI-HTN MEDICATION.
[2018-08-28] MEDS: CARVEDILOL 3.125 MG TAB PO SCH (21:55)
[2018-08-28] MEDS: QUEtiapine FUMARATE 25 MG TAB PO SCH (21:55)
[2018-08-28] MEDS: ATORVASTATIN 20 MG TAB PO SCH (21:56)
[2018-08-28] MEDS: TEMAZEPAM 15 MG CAP PO PRN (21:58)
[2018-08-29] VITALS (7 sets, daily range): BP systolic 114–137; BP diastolic 66–81
[2018-08-29] MEDS: IPRATROPIUM BROM 0.5 MG/2.5ML INH SOL NEB SCH ×6 (01:51→22:36)
[2018-08-29] MEDS: ALBUTEROL SULF 2.5 MG/0.5ML(0.5%) NEB SOLN NEB SCH ×6 (01:51→22:36)
[2018-08-29] MEDS: MORPHINE SULFATE 4 MG/ML SYR/VIAL IV PRN ×4 (05:08→23:00)
[2018-08-29] MEDS: LEVOTHYROXINE SODIUM 100 MCG TAB PO SCH (05:08)
[2018-08-29] MEDS: CARISOPRODOL 350 MG TAB PO SCH ×4 (05:08→22:59)
[2018-08-29] MEDS: PANTOPRAZOLE 40 MG TAB PO SCH (05:09)
--- NOTE | 2018-08-29 07:16 | NUR ---
CLOSING NOTE SBAR REPORT GIVEN TO MARIO CARTWRIGHT. PT STABLE , RESTING IN BED, NO DISTRESS NOTED. ADVISED TO CALL FOR ASSISTANCE.
[2018-08-29 07:30] LABS: Red Blood Cells 2.44 10^6/uL (4.0-5.20); Red Cell Distribution Width 18.7 % (11.8-14.3)
[2018-08-29 07:33] LABS: Hematocrit 23.3 % (36.0-46.0); Hemoglobin 7.9 g/dL (12.2-16.2); Mean Corpuscular Hemoglobin 32.1 pg (28.0-32.0); Mean Corpuscular Hgb Conc. 33.6 g/dL (32.0-36.0); Mean Corpuscular Volume 95.5 fL (80.0-100.0); Platelet Count (auto) 157 10^3/uL (140-450); White Blood Cell 4.4 10^3/uL (4.4-10.8)
[2018-08-29 07:35] LABS: Blast Cells 0; Metamyelocytes % 0; Myelocytes % 0; Promyelocytes % 0; Reactive Lymphocytes 0
[2018-08-29 07:39] LABS: BUN/Creatinine Ratio 4.8; Calcium 7.4 mg/dL (8.5-10.1); Potassium 3.8 mmol/L (3.5-5.1)
[2018-08-29] MEDS: SEVELAMER 800 MG TAB PO SCH ×3 (08:53→19:08)
[2018-08-29] MEDS: hydrALAZINE HCL 25 MG TAB PO SCH ×2 (09:55→22:58)
[2018-08-29] MEDS: LISINOPRIL 20 MG TAB PO SCH (09:56)
[2018-08-29] MEDS: CARVEDILOL 3.125 MG TAB PO SCH ×2 (09:56→22:58)
[2018-08-29] MEDS: LINEZOLID 600MG TABLET PO SCH ×2 (09:57→22:59)
[2018-08-29] MEDS: DOCUSATE SOD 100 MG CAP PO SCH ×2 (09:57→22:59)
[2018-08-29] MEDS: ENOXAPARIN SOD 30 MG/0.3 ML SYRINGE SC SCH (09:57)
[2018-08-29 11:49] LABS: Band Neutrophils % (manual) 4; Basophils % (manual) 1 (0.0-2.0); Eosinophils % (manual) 8 (0-7); Lymphocytes % (manual) 31 (10.0-50.0); Monocytes % (manual) 8 (0-12)
--- NOTE | 2018-08-29 12:33 | NUR ---
RT NOTE: PT REFUSED BREATHING TX AT THIS TIME. NO SIGNS OF RESPIRATORY DISTRESS. LUNG SOUNDS CLEAR T/O. ON 3L NC SPO2 98 HR 87 RR 14. PT AWARE THAT I WOULD RETURN FOR NEXT SCHEDULED TX. WILL CONTINUE TO MONITOR.
--- NOTE | 2018-08-29 16:50 | NUR ---
[facility] PROVIDED PERINEAL AND HARRIS CARE FOR PATIENT. CATHETER REMAINS INTACT AND PATENT, DRAINING CONCENTRATED, STRAW COLORED URINE.
--- NOTE | 2018-08-29 17:00 | NUR ---
WOUND CARE CLEANSED SACRAL WOUND WITH WOUND CLEANSER AND PATTED TRY WITH STERILE GAUZE, THERA HONEY APPLIED ON WOUND BED, SECURED WITH OPTIFOAM. MILD GREEN DRAINAGE AND ODOR NOTED ON OLD DRESSING. PATIENT TOLERATE WELL.
--- NOTE | 2018-08-29 19:00 | NUR ---
OPEN SHIFT NOTE PATIENT ALERT AND ORIENTED X4, ON 2L NASAL CANNULA, EJ 18 GAUGE IS INTACT AND PATENT. PATIENT IS BEDBOUND. POC WAS DISCUSSED AND QUESTIONS ANSWERED. AT BEDSIDE. BED IS LOCKED IN LOWEST POSITION AND WITH SIDE RAILS UP X2, CALL LIGHT IS WITHIN REACH. WILL CONTINUE TO ROUND Q1HR AND PRN.
[2018-08-29] MEDS: ATORVASTATIN 20 MG TAB PO SCH (22:59)
[2018-08-29] MEDS: QUEtiapine FUMARATE 25 MG TAB PO SCH (22:59)
[2018-08-29] MEDS: TEMAZEPAM 15 MG CAP PO PRN (23:05)
[2018-08-30] MEDS: ALBUTEROL SULF 2.5 MG/0.5ML(0.5%) NEB SOLN NEB SCH ×4 (02:19→14:18)
[2018-08-30] MEDS: IPRATROPIUM BROM 0.5 MG/2.5ML INH SOL NEB SCH ×4 (02:19→14:18)
[2018-08-30 05:00] VITALS: BP 144/85
[2018-08-30 06:00] LABS: Basophils # (auto) 0 uL; Hemoglobin 7.8 g/dL (12.2-16.2); Lymphocytes # (auto) 1.8 uL; Monocytes # (auto) 0.6 uL; White Blood Cell 4.3 10^3/uL (4.4-10.8)
[2018-08-30] MEDS ORDERED: LACTULOSE 20Gm/30ML SOLN PO ONE (06:00)
[2018-08-30] MEDS: PANTOPRAZOLE 40 MG TAB PO SCH (06:02)
[2018-08-30] MEDS: CARISOPRODOL 350 MG TAB PO SCH ×2 (06:02→11:59)
[2018-08-30 06:03] LABS: Basophils % (auto) 0.5 % (0.0-2.0); Eosinophils # (auto) 0.3 uL; Eosinophils % (auto) 8.1 % (0.0-7.0); Hematocrit 23.4 % (36.0-46.0); Lymphocytes % (auto) 41.9 % (10.0-50.0); Mean Corpuscular Hemoglobin 32.4 pg (28.0-32.0); Mean Corpuscular Hgb Conc. 33.5 g/dL (32.0-36.0); Mean Corpuscular Volume 96.7 fL (80.0-100.0); Monocytes % (auto) 13.2 % (0.0-12.0); Neutrophils # (auto) 1.6 uL; Neutrophils % (auto) 36.3 % (37.0-80.0); Nucleated Red Blood Cells % 0.1 %; Platelet Count (auto) 174 10^3/uL (140-450); Red Blood Cells 2.42 10^6/uL (4.0-5.20)
[2018-08-30 06:13] LABS: Calcium 7.3 mg/dL (8.5-10.1); Potassium 4.1 mmol/L (3.5-5.1)
[2018-08-30 06:15] LABS: BUN/Creatinine Ratio 4.8
[2018-08-30] MEDS: LEVOTHYROXINE SODIUM 100 MCG TAB PO SCH (06:51)
[2018-08-30] MEDS ORDERED: SODIUM CHL 0.9% 1000 ML BAG XX ONE (07:00)
--- NOTE | 2018-08-30 07:20 | NUR ---
Opening Shift Note Assumed care of patient, awake and alert. No S/S of distress/SOB or pain. Instructed on POC-await dialysis today and social service consult regarding dc planning. Patient informed to call for assist PRN, will continue to monitor for changes Q1hr and PRN.
[2018-08-30 08:00] VITALS: BP 131/87
[2018-08-30] MEDS: SEVELAMER 800 MG TAB PO SCH ×2 (08:00→12:00)
--- NOTE | 2018-08-30 08:20 | NUR ---
Hemodialysis going on at bedside.
[2018-08-30] MEDS: MORPHINE SULFATE 4 MG/ML SYR/VIAL IV PRN ×2 (08:54→14:40)
--- NOTE | 2018-08-30 10:28 | NUR ---
Respiratory note: SCHEDULED MED NEB TX NOT GIVEN. PT WAS HAVING DIALYSIS.
[2018-08-30 10:43] LABS: Hemoglobin 8.4 g/dL (12.2-16.2)
--- NOTE | 2018-08-30 10:45 | NUR ---
Hemodialysis ended, 2 L off per intravenous therapy nurse.
[2018-08-30 10:46] LABS: Hematocrit 25.2 % (36.0-46.0)
[2018-08-30] MEDS: DOCUSATE SOD 100 MG CAP PO SCH (10:47)
[2018-08-30] MEDS: CARVEDILOL 3.125 MG TAB PO SCH (10:47)
[2018-08-30] MEDS: LINEZOLID 600MG TABLET PO SCH (10:47)
[2018-08-30] MEDS: LISINOPRIL 20 MG TAB PO SCH (10:49)
[2018-08-30] MEDS: hydrALAZINE HCL 25 MG TAB PO SCH (10:49)
[2018-08-30] MEDS: ENOXAPARIN SOD 30 MG/0.3 ML SYRINGE SC SCH (10:50)
[2018-08-30 10:58] LABS: % Iron Saturation 29.9 % (15-50)
[2018-08-30 13:03] VITALS: BP 118/75
--- NOTE | 2018-08-30 13:52 | NUR ---
Called Material Control Associate to follow up regarding the consult for home health. Await call back.
[2018-08-30 15:23] VITALS: BP 118/75
--- NOTE | 2018-08-30 15:25 | NUR ---
Spoke with Xochitl Reconciler, regarding social service consult for home health for wound care. Also informed Reconciler that patient is to go home with a bright per Dr. Diggs's order and bright care will be also included with the home health service.
--- NOTE | 2018-08-30 15:30 | NUR ---
I faxed home health order to [facility] (patient was previously on service with them).
[2018-08-30 17:00] VITALS: BP 144/81
--- NOTE | 2018-08-30 17:25 | NUR ---
Discharge Discharge instructions given as ordered. Encourage to follow up with Primary MD and at the dialysis center as instructed. All questions and concerns addressed. Patient verbalized understanding. Patient refused the flu and pneumonia vaccines. IV removed with catheter intact, pressure dressing applied, bright catheter not removed, as per Dr. Diggs, patient is to go home with bright catheter as she has a pressure ulcer. Telemetry unit returned to [facility]. Patient taken to vehicle via own electric chair with all personal belongings, accompanied by staff/physical therapy and family member. No distress noted at time of departure.
[2018-08-30] MEDS ORDERED: EPOETIN ALFA 10,000 UNIT/1 ML VIAL SC ONE (21:00)
== END 2018-08-30 17:25 | disposition home health service (06) | DRG 871 ==
LOC: EDBD 22:26 → ER 22:34 → TELE 08-27 04:10 → TELE-CENTR 08-27 17:53
PROVIDERS: ADMIT Nurse Practitioner Family; ATTEND Internal Medicine
PROC: 5A09357 Assistance with Respiratory Ventilation, Less than 24 Consecutive Hours, Continuous Positive Airway Pressure (ICD-10-PCS; principal; 2018-08-26)
PROC: 5A1D70Z Performance of Urinary Filtration, Intermittent, Less than 6 Hours Per Day (ICD-10-PCS; 2018-08-28)
PROC: 5A1D70Z Performance of Urinary Filtration, Intermittent, Less than 6 Hours Per Day (ICD-10-PCS; 2018-08-30)
DX: A41.9 Sepsis, unspecified organism (principal); L89.153 Pressure ulcer of sacral region, stage 3; J96.20 Acute and chronic respiratory failure, unspecified whether with hypoxia or hypercapnia; N18.6 End stage renal disease; I50.43 Acute on chronic combined systolic (congestive) and diastolic (congestive) heart failure; I13.2 Hypertensive heart and chronic kidney disease with heart failure and with stage 5 chronic kidney disease, or end stage renal disease; J44.1 Chronic obstructive pulmonary disease with (acute) exacerbation; I42.9 Cardiomyopathy, unspecified; Z99.2 Dependence on renal dialysis; E11.22 Type 2 diabetes mellitus with diabetic chronic kidney disease; E03.9 Hypothyroidism, unspecified; K21.9 Gastro-esophageal reflux disease without esophagitis; E78.5 Hyperlipidemia, unspecified; Z51.5 Encounter for palliative care; E66.9 Obesity, unspecified; D63.1 Anemia in chronic kidney disease; L98.429 Non-pressure chronic ulcer of back with unspecified severity; R62.7 Adult failure to thrive; Z79.899 Other long term (current) drug therapy; Z68.38 Body mass index [BMI] 38.0-38.9, adult; Z80.3 Family history of malignant neoplasm of breast; Z82.49 Family history of ischemic heart disease and other diseases of the circulatory system
CPT/HCPCS: 36415; 36600; 51702; 71045; 80048; 80053; 81001; 82728; 82805; 83540; 83550; 83735; 83880; 84100; 84132; 84484; 85007; 85014; 85018; 85025; 85027; 85610; 85730; 87081; 90935; 94640; 94660; 94761; 96372; 96374; 99291; A6257; G0378; J0885; J1642

== ENCOUNTER 2018-08-31 21:14 | Emergency (ER) | payer MEDICARE, MEDICAID ==
[~2018-08-31] VITALS: Ht 175.3 cm; Wt 108.9 kg
[2018-08-31 21:32] VITALS: BP 164/86
[2018-08-31] MEDS ORDERED: ONDANSETRON HCL 4 MG/2 ML VIAL IM ONE (22:30)
[2018-08-31] MEDS ORDERED: MORPHINE SULFATE 4 MG/ML SYR/VIAL IM ONE (22:30)
== END 2018-08-31 22:58 | disposition home or self-care (01) ==
LOC: EDBD 21:14 → ER 21:27
DX: T83.028A Displacement of other urinary catheter, initial encounter (principal); I20.9 Angina pectoris, unspecified; E78.5 Hyperlipidemia, unspecified; E07.9 Disorder of thyroid, unspecified; I13.2 Hypertensive heart and chronic kidney disease with heart failure and with stage 5 chronic kidney disease, or end stage renal disease; N18.6 End stage renal disease; I50.9 Heart failure, unspecified; Y84.6 Urinary catheterization as the cause of abnormal reaction of the patient, or of later complication, without mention of misadventure at the time of the procedure; Y92.89 Other specified places as the place of occurrence of the external cause
CPT/HCPCS: 51702; 96372; 99284; J2270; J2405

== ENCOUNTER 2018-10-16 06:05 | Inpatient (IN) | payer MEDICARE, MEDICAID | END 2018-10-27 16:09 | disposition home health service (06) | LOC: CENTRAL 10-18 15:48 → ER 06:05 → TELE 09:18 → TELE-CENTR 14:57 | DX: L02.31 Cutaneous abscess of buttock (principal); N18.6 End stage renal disease; I50.42 Chronic combined systolic (congestive) and diastolic (congestive) heart failure; I13.2 Hypertensive heart and chronic kidney disease with heart failure and with stage 5 chronic kidney disease, or end stage renal disease; G82.20 Paraplegia, unspecified; E44.0 Moderate protein-calorie malnutrition; N25.81 Secondary hyperparathyroidism of renal origin; Z99.2 Dependence on renal dialysis; D63.8 Anemia in other chronic diseases classified elsewhere; E03.9 Hypothyroidism, unspecified; G89.29 Other chronic pain; K59.00 Constipation, unspecified; Z74.01 Bed confinement status ==

== ENCOUNTER 2018-11-22 22:22 | Emergency (ER) | payer MEDICARE, MEDICAID ==
[~2018-11-22] VITALS: Ht 167.6 cm; Wt 74.8 kg
[~2018-11-22 22:22] MED LIST changes: +ASCO500T11 PO; -CLIN-188 PO; +GAB100C PO; -HYDR100T22 PO; -LISI-646 PO; +NIF30XLT PO; -TIZA4CAP PO
[2018-11-22] MEDS ORDERED: MORPHINE SULFATE 4 MG/ML SYR/VIAL IM ONE (23:45)
[2018-11-22] MEDS ORDERED: ONDANSETRON ODT 4 MG TAB PO ONE (23:45)
[2018-11-23 00:54] LABS: Basophils # (auto) 0 uL; Basophils % (auto) 0.5 % (0.0-2.0); Eosinophils # (auto) 0.1 uL; Hemoglobin 8.4 g/dL (12.2-16.2); Lymphocytes # (auto) 1.2 uL; Monocytes # (auto) 0.8 uL; White Blood Cell 6.5 10^3/uL (4.4-10.8)
[2018-11-23 00:56] LABS: Eosinophils % (auto) 1.1 % (0.0-7.0); Lymphocytes % (auto) 18.2 % (10.0-50.0); Mean Corpuscular Hemoglobin 31.2 pg (28.0-32.0); Mean Corpuscular Hgb Conc. 33.4 g/dL (32.0-36.0); Mean Corpuscular Volume 93.6 fL (80.0-100.0); Monocytes % (auto) 12.2 % (0.0-12.0); Neutrophils # (auto) 4.4 uL; Platelet Count (auto) 175 10^3/uL (140-450); Red Blood Cells 2.67 10^6/uL (4.0-5.20); Red Cell Distribution Width 19.5 % (11.8-14.3)
[2018-11-23] MEDS ORDERED: MORPHINE SULFATE 4 MG/ML SYR/VIAL IV ONE (01:00)
[2018-11-23] MEDS ORDERED: ONDANSETRON HCL 4 MG/2 ML VIAL IV ONE ×2 (01:00→10:15)
[2018-11-23 01:15] LABS: BUN/Creatinine Ratio 5.2; Calcium 7.3 mg/dL (8.5-10.1); Potassium 4.2 mmol/L (3.5-5.1)
[2018-11-23 01:18] LABS: Bilirubin, Total 0.2 mg/dL (0.2-1.0); Total Protein 6.3 g/dL (6.4-8.2)
[2018-11-23] MEDS ORDERED: CARISOPRODOL 350 MG TAB PO ONE (04:15)
[2018-11-23] MEDS ORDERED: HYDROmorphone HCL 2 MG/ML VL IV ONE (06:15)
[2018-11-23] MEDS ORDERED: MORPHINE SULF INJ 2 MG/ML SYRINGE 1ML IV ONE (10:15)
[2018-11-23 10:37] VITALS: BP 112/65
--- NOTE | 2018-11-23 12:10 | NUR ---
WOUND CARE NOTE: PATIENT WAS DISCHARGED FROM THIS FACILITY YESTERDAY. ARRIVED BACK IN ER LAST NIGHT D/T LEAKING WOUND VAC DRESSING. PATIENT CAME IN WITH VAC DRESSING APPLIED TO LEFT ISCHIUM, VAC WAS NOT ATTACHED TO WOUND/DRESSING. FAMILY MEMBER BROUGHT HOME VAC IN FOR DRESSING CHANGE. VAC DRESSING SATURATED WITH WOUND EXUDATE. WOUND PHOTO TAKEN FOR REFERENCE AT THIS TIME. THERE ARE MULTIPLE AREAS WITH GRANULATION BUDS NOTED WITHIN WOUND BED. CLEANSED WITH WOUND CLEANSER. PATTED DRY WITH STERILE GAUZE. APPLIED CAVILON NO STING BARRIER FILM ALONG PERIWOUND AND BRIDGE SKIN. COVERED THESE AREAS WITH FILM DRESSING TO PROTECT PERIWOUND. APPLIED BLACK GRANUFOAM WITHIN WOUND CAVITY OF LEFT ISCHIUM WOUND, BRIDGING DRESSING UP TO LEFT ANTERIOR UPPER THIGH. SECURED WITH STERILE DRAPE. APPLIED TRAC PAD. HOME VAC TURNED ON, RUNNING AT 125 MM/HG CONTINUOUS. GOOD SUCTION, NO LEAKS DETECTED. PATIENT'S FAMILY EDUCATED ON WOUND VAC/ DRESSING AT THIS TIME. DEMONSTRATED TROUBLESHOOTING TECHNIQUES. PATIENT'S FAMILY MEMBER VERBALIZED UNDERSTANDING. PATIENT TO DISCHARGE HOME SHORTLY. HOME HEALTH CARE TO RESUME POST DISCHARGE FROM ER.
== END 2018-11-23 13:45 | disposition home or self-care (01) ==
LOC: EDUNIT# 22:22 → ER 22:27
DX: L89.313 Pressure ulcer of right buttock, stage 3 (principal); D53.9 Nutritional anemia, unspecified; E11.22 Type 2 diabetes mellitus with diabetic chronic kidney disease; I13.2 Hypertensive heart and chronic kidney disease with heart failure and with stage 5 chronic kidney disease, or end stage renal disease; N18.6 End stage renal disease; I50.89 Other heart failure; E78.5 Hyperlipidemia, unspecified; Z99.2 Dependence on renal dialysis; Z79.4 Long term (current) use of insulin; Z86.39 Personal history of other endocrine, nutritional and metabolic disease
CPT/HCPCS: 36415; 80053; 85025; 96374; 96375; 96376; 99283; J1170; J2270; J2405

== ENCOUNTER 2019-03-07 09:39 | Inpatient (IN) | payer MEDICARE, MEDICAID | END 2019-03-16 19:55 | LOC: ER 09:39 → TELE 09:40 → TELE-CENTR 21:11 | DX: G93.41 Metabolic encephalopathy (principal); L89.324 Pressure ulcer of left buttock, stage 4; L89.314 Pressure ulcer of right buttock, stage 4; L89.154 Pressure ulcer of sacral region, stage 4; N18.6 End stage renal disease; A41.9 Sepsis, unspecified organism; N39.0 Urinary tract infection, site not specified; I50.22 Chronic systolic (congestive) heart failure; I13.2 Hypertensive heart and chronic kidney disease with heart failure and with stage 5 chronic kidney disease, or end stage renal disease; Z99.2 Dependence on renal dialysis; J44.9 Chronic obstructive pulmonary disease, unspecified; G62.9 Polyneuropathy, unspecified; Z16.24 Resistance to multiple antibiotics ==

== ENCOUNTER 2021-05-20 12:35 | Inpatient (IN) | payer MEDICARE, MEDICAID ==
[~2021-05-20] VITALS: Ht 162.6 cm; Wt 73.6 kg
[~2021-05-20 12:35] MED LIST changes: +CLOP75TA70 PO; +DOCU1CAP46 PO; -DOCU1CAP54 PO; +HYDR-4833 PO; +LISI20TA28 PO; +LOSA-39 PO; -NIF30XLT PO; +NIFE1TAB36 PO; -PERCOT PO; -SEVE800T PO; +TRAZ-220 PO
[2021-05-20] MEDS ORDERED: ONDANSETRON HCL 4 MG/2 ML VIAL IV ONE (16:00)
[2021-05-20] MEDS ORDERED: MORPHINE SULFATE 4 MG/ML SYR/VIAL IV ONE (16:00)
[2021-05-20 16:51] LABS: Basophils # (auto) 0.1 10 ^3/uL (0-0.2); Eosinophils # (auto) 0 10 ^3/uL (0-0.8); Eosinophils % (auto) 0.6 % (0.0-7.0); Hematocrit 38.4 % (36.0-46.0); Hemoglobin 12.4 g/dL (12.2-16.2); Lymphocytes # (auto) 1.9 10 ^3/uL (0.4-5.4); Lymphocytes % (auto) 36.9 % (10.0-50.0); Mean Corpuscular Hemoglobin 30.9 pg (28.0-32.0); Mean Corpuscular Hgb Conc. 32.2 g/dL (32.0-36.0); Mean Corpuscular Volume 95.7 fL (80.0-100.0); Monocytes # (auto) 0.9 10 ^3/uL (0-1.3); Monocytes % (auto) 17.3 % (0.0-12.0); Neutrophils # (auto) 2.2 10 ^3/uL (1.6-8.6); Neutrophils % (auto) 44.2 % (37.0-80.0); Red Blood Cells 4.01 10^6/uL (4.0-5.20); Red Cell Distribution Width 17.1 % (11.8-14.3); White Blood Cell 5.1 10^3/uL (4.4-10.8)
[2021-05-20 17:08] LABS: BUN/Creatinine Ratio 5.9; Calcium 8.4 mg/dL (8.5-10.1); Potassium 5.2 mmol/L (3.5-5.1)
[2021-05-20 17:10] LABS: INR 1.05 (0.9-1.15); Partial Thromboplastin Time 33.5 sec (23.6-33.0)
[2021-05-20] MEDS ORDERED: PIPERACILLIN-TAZO 4.5GM 100 ML IV ONE (18:45)
[2021-05-20] MEDS ORDERED: VANCOMYCIN 1,500 MG in D5W 5% 250 ML IV STA (18:45)
[2021-05-20] MEDS ORDERED: MORPHINE SULFATE INJECTION 2 MG/ML SYRG IV PRN ×2 (19:30→20:15)
[2021-05-20] MEDS ORDERED: NITROGLYCERIN 0.4 MG SL TAB SL PRN ×2 (19:30→20:15)
[2021-05-20] MEDS ORDERED: HYDROcodone-ACET 5/325MG TAB PO ONE (19:30)
[2021-05-20] MEDS ORDERED: VANCOMYCIN 1GM/250ML 250 ML IV ONE (19:45)
[2021-05-20] MEDS ORDERED: BUMETANIDE 2.5mg/10ml (0.25 mg/ml) INJ IV ONE (20:00)
[2021-05-20] MEDS ORDERED: ISOSORBIDE MONONITRATE ER 60 MG TAB PO ONE (20:00)
[2021-05-20] MEDS ORDERED: hydrALAZINE HCL 20 MG/ML VL IV PRN (20:00)
[2021-05-20] MEDS ORDERED: METOPROLOL SUCCINATE XL 50 MG TAB PO ONE (20:00)
[2021-05-20] MEDS ORDERED: ATORVASTATIN 20 MG TAB PO ONE (20:00)
[2021-05-20] MEDS ORDERED: VANCOMYCIN PER PHARMACY 0 MG IV SCH (20:15)
[2021-05-20] MEDS ORDERED: CARISOPRODOL 350 MG TAB PO ONE (22:00)
[2021-05-20] MEDS: HYDROcodone-ACET 5/325MG TAB PO SCH (22:00)
[2021-05-20] MEDS: hydrALAZINE HCL 25 MG TAB PO SCH (22:44)
[2021-05-21] MEDS: MORPHINE SULFATE INJECTION 2 MG/ML SYRG IV PRN ×4 (00:59→20:41)
[2021-05-21 01:36] VITALS: BP 126/80
[2021-05-21] MEDS: DOCUSATE SOD 100 MG CAP PO SCH ×4 (05:16→21:54)
[2021-05-21] MEDS: hydrALAZINE HCL 25 MG TAB PO SCH ×3 (05:17→21:56)
[2021-05-21] MEDS: LEVOTHYROXINE SODIUM 50 MCG TAB PO SCH (05:18)
[2021-05-21] MEDS: CARISOPRODOL 350 MG TAB PO SCH ×3 (05:18→18:42)
[2021-05-21] MEDS: HYDROcodone-ACET 5/325MG TAB PO SCH (05:19)
[2021-05-21] MEDS ORDERED: BUMETANIDE 2.5mg/10ml (0.25 mg/ml) INJ IV SCH (06:00)
[2021-05-21 06:26] VITALS: BP 116/86
[2021-05-21] MEDS: SODIUM ZIRCONIUM CYCL 10 GM PAK PO SCH ×3 (06:46→14:59)
[2021-05-21 08:05] LABS: Hematocrit 32.5 % (36.0-46.0); Hemoglobin 10.6 g/dL (12.2-16.2); Mean Corpuscular Hemoglobin 31.3 pg (28.0-32.0); Mean Corpuscular Hgb Conc. 32.6 g/dL (32.0-36.0); Red Blood Cells 3.39 10^6/uL (4.0-5.20); Red Cell Distribution Width 16.7 % (11.8-14.3); White Blood Cell 5.1 10^3/uL (4.4-10.8)
[2021-05-21 08:10] LABS: Band Neutrophils % (manual) 0; Basophils % (manual) 0 (0.0-2.0); Blast Cells 0; Metamyelocytes % 0; Myelocytes % 0; Promyelocytes % 0; Reactive Lymphocytes 0
[2021-05-21] MEDS: SEVELAMER 800 MG TAB PO SCH ×3 (08:16→18:42)
[2021-05-21 08:24] LABS: Albumin 2.1 g/dL (3.4-5.0); Blood Urea Nitrogen 40 mg/dL (7-18); Calcium 8.1 mg/dL (8.5-10.1); Chloride 98 mmol/L (98-107); Sodium 133 mmol/L (136-145)
[2021-05-21 08:33] LABS: Alanine Aminotransferase < 6 U/L (13-56); Alkaline Phosphatase 82 U/L (45-117); Anion Gap 10 (5-15); Aspartate Aminotransferase 6 U/L (15-37); BUN/Creatinine Ratio 6.6; Bilirubin, Total 0.3 mg/dL (0.2-1.0); Carbon Dioxide 25 mmol/L (21-32); GFR African American 9 mL/min; GFR Non-African American 7 mL/min; Glucose 84 mg/dL (74-106); Magnesium 2.9 mg/dL (1.6-2.6); Phosphorus 8.5 mg/dL (2.5-4.90); Total Protein 7.9 g/dL (6.4-8.2); Uric Acid 4.4 mg/dL (2.6-6.0)
[2021-05-21 08:42] LABS: Potassium 6.2 mmol/L (3.5-5.1)
[2021-05-21 08:48] LABS: Eosinophils % (manual) 3 (0-7); Lymphocytes % (manual) 41 (10.0-50.0); Monocytes % (manual) 11 (0-12)
[2021-05-21 08:58] LABS: INR 1.07 (0.9-1.15); Partial Thromboplastin Time 34.5 sec (23.6-33.0)
[2021-05-21 09:00] VITALS: BP 122/83
[2021-05-21] MEDS: cefTRIAXone 1GM/50ML D5W 50 ML IV SCH (09:07)
[2021-05-21] MEDS: ENOXAPARIN SOD 30 MG/0.3 ML SYRINGE SC SCH (09:07)
[2021-05-21] MEDS: GABAPENTIN 100 MG CAP PO SCH ×3 (09:08→21:56)
[2021-05-21] MEDS: CLOPIDOGREL BISULFATE 75 MG TAB PO SCH (09:09)
[2021-05-21] MEDS: ISOSORBIDE MONONITRATE ER 60 MG TAB PO SCH (09:09)
[2021-05-21] MEDS: ASCORBIC ACID 500 MG TAB PO SCH ×3 (09:09→21:54)
[2021-05-21] MEDS: PANTOPRAZOLE 40 MG TAB PO SCH (09:10)
[2021-05-21] MEDS: ALPRAZolam 0.25 MG TAB PO SCH (09:10)
[2021-05-21] MEDS: METOPROLOL SUCCINATE XL 50 MG TAB PO SCH (09:12)
[2021-05-21] MEDS ORDERED: NIFEdipine ER 30 MG TAB PO SCH (10:00)
[2021-05-21] MEDS ORDERED: LISINOPRIL 20 MG TAB PO SCH (10:00)
[2021-05-21] MEDS ORDERED: SODIUM CHL 0.9% 1000 ML BAG XX ONE (10:15)
[2021-05-21] MEDS: NIFEdipine ER 30 MG TAB PO SCH (10:15)
[2021-05-21 13:00] VITALS: BP 131/68
[2021-05-21] MEDS: OXYCODONE W/ ACETAMINOPHEN 5/325MG TABLET PO SCH ×2 (14:00→21:55)
[2021-05-21 17:00] VITALS: BP 134/88
[2021-05-21] MEDS ORDERED: VANCOMYCIN 1GM/250ML 250 ML IV ONE (21:00)
[2021-05-21] MEDS ORDERED: EPOETIN ALFA-EPBX 10,000 UNIT/1ML VIAL SC ONE (21:00)
[2021-05-21] MEDS: QUEtiapine FUMARATE 25 MG TAB PO SCH ×2 (21:54)
[2021-05-21] MEDS: traZODone HCL 50 MG TAB PO SCH ×2 (21:54)
[2021-05-21] MEDS: ATORVASTATIN 20 MG TAB PO SCH (21:55)
[2021-05-21 22:00] VITALS: BP 101/67
[2021-05-22] MEDS: CARISOPRODOL 350 MG TAB PO SCH ×5 (01:00→23:38)
[2021-05-22 05:00] VITALS: BP 125/79
[2021-05-22] MEDS: DOCUSATE SOD 100 MG CAP PO SCH ×3 (05:32→21:40)
[2021-05-22] MEDS: hydrALAZINE HCL 25 MG TAB PO SCH ×3 (05:32→22:00)
[2021-05-22] MEDS: OXYCODONE W/ ACETAMINOPHEN 5/325MG TABLET PO SCH ×3 (05:33→21:42)
[2021-05-22] MEDS: LEVOTHYROXINE SODIUM 50 MCG TAB PO SCH (05:34)
[2021-05-22] MEDS: SEVELAMER 800 MG TAB PO SCH ×3 (08:18→18:04)
[2021-05-22 09:00] VITALS: BP 127/85
[2021-05-22] MEDS: cefTRIAXone 1GM/50ML D5W 50 ML IV SCH (09:01)
[2021-05-22] MEDS: ASCORBIC ACID 500 MG TAB PO SCH ×2 (09:03→21:40)
[2021-05-22] MEDS: CLOPIDOGREL BISULFATE 75 MG TAB PO SCH (09:03)
[2021-05-22] MEDS: ISOSORBIDE MONONITRATE ER 60 MG TAB PO SCH (09:03)
[2021-05-22] MEDS: METOPROLOL SUCCINATE XL 50 MG TAB PO SCH (09:04)
[2021-05-22] MEDS: PANTOPRAZOLE 40 MG TAB PO SCH (09:04)
[2021-05-22] MEDS: GABAPENTIN 100 MG CAP PO SCH ×2 (09:06→21:41)
[2021-05-22] MEDS: NIFEdipine ER 30 MG TAB PO SCH (09:06)
[2021-05-22] MEDS: ALPRAZolam 0.25 MG TAB PO SCH (09:07)
[2021-05-22] MEDS: ENOXAPARIN SOD 30 MG/0.3 ML SYRINGE SC SCH (09:08)
[2021-05-22] MEDS: MORPHINE SULFATE INJECTION 2 MG/ML SYRG IV PRN (12:25)
[2021-05-22 17:00] VITALS: BP 92/54
[2021-05-22] MEDS: traZODone HCL 50 MG TAB PO SCH (21:40)
[2021-05-22] MEDS: ATORVASTATIN 20 MG TAB PO SCH (21:40)
[2021-05-22] MEDS: QUEtiapine FUMARATE 25 MG TAB PO SCH (21:40)
[2021-05-22 21:49] VITALS: BP 99/58
[2021-05-22 23:40] VITALS: BP 92/52
[2021-05-23] VITALS (7 sets, daily range): BP systolic 85–127; BP diastolic 55–78
[2021-05-23] MEDS: MORPHINE SULFATE INJECTION 2 MG/ML SYRG IV PRN ×3 (02:53→17:44)
[2021-05-23 05:48] LABS: Hematocrit 35.9 % (36.0-46.0); Mean Corpuscular Hemoglobin 32.5 pg (28.0-32.0); Mean Corpuscular Hgb Conc. 33.6 g/dL (32.0-36.0); Mean Corpuscular Volume 96.8 fL (80.0-100.0); Red Blood Cells 3.71 10^6/uL (4.0-5.20); Red Cell Distribution Width 16.7 % (11.8-14.3); White Blood Cell 5.5 10^3/uL (4.4-10.8)
[2021-05-23] MEDS: DOCUSATE SOD 100 MG CAP PO SCH ×3 (05:51→22:28)
[2021-05-23] MEDS: OXYCODONE W/ ACETAMINOPHEN 5/325MG TABLET PO SCH ×3 (05:51→22:00)
[2021-05-23] MEDS: CARISOPRODOL 350 MG TAB PO SCH ×3 (05:52→17:26)
[2021-05-23] MEDS: hydrALAZINE HCL 25 MG TAB PO SCH ×3 (05:52→22:00)
[2021-05-23] MEDS ORDERED: SODIUM CHL 0.9% 1000 ML BAG XX ONE (07:00)
[2021-05-23] MEDS: ASCORBIC ACID 500 MG TAB PO SCH ×2 (09:12→22:29)
[2021-05-23] MEDS: SEVELAMER 800 MG TAB PO SCH ×3 (09:12→17:26)
[2021-05-23] MEDS: PANTOPRAZOLE 40 MG TAB PO SCH (09:13)
[2021-05-23] MEDS: CLOPIDOGREL BISULFATE 75 MG TAB PO SCH (09:13)
[2021-05-23] MEDS: cefTRIAXone 1GM/50ML D5W 50 ML IV SCH (09:13)
[2021-05-23] MEDS: ALPRAZolam 0.25 MG TAB PO SCH (09:14)
[2021-05-23] MEDS: GABAPENTIN 100 MG CAP PO SCH ×2 (09:14→22:29)
[2021-05-23] MEDS: ENOXAPARIN SOD 30 MG/0.3 ML SYRINGE SC SCH (09:18)
[2021-05-23] MEDS: NIFEdipine ER 30 MG TAB PO SCH (09:22)
[2021-05-23] MEDS: METOPROLOL SUCCINATE XL 50 MG TAB PO SCH (09:22)
[2021-05-23] MEDS: ISOSORBIDE MONONITRATE ER 60 MG TAB PO SCH (09:23)
[2021-05-23 10:11] LABS: Basophils % (manual) 0 (0.0-2.0); Blast Cells 0; Metamyelocytes % 0; Myelocytes % 0; Promyelocytes % 0; Reactive Lymphocytes 0
[2021-05-23 10:13] LABS: Band Neutrophils % (manual) 2; Lymphocytes % (manual) 33 (10.0-50.0)
[2021-05-23 10:14] LABS: Eosinophils % (manual) 2 (0-7); Monocytes % (manual) 19 (0-12)
[2021-05-23] MEDS ORDERED: FLEET ENEMA(ADULT) 135 ML PR ONE (11:30)
[2021-05-23] MEDS: SODIUM ZIRCONIUM CYCL 10 GM PAK PO SCH ×2 (11:37→22:28)
[2021-05-23] MEDS: LEVOTHYROXINE SODIUM 50 MCG TAB PO SCH (19:29)
[2021-05-23] MEDS ORDERED: EPOETIN ALFA-EPBX 10,000 UNIT/1ML VIAL SC ONE (21:00)
[2021-05-23] MEDS ORDERED: SODIUM CHLORIDE 0.9% 250 ML IV ONE (21:45)
[2021-05-23] MEDS: ATORVASTATIN 20 MG TAB PO SCH (22:28)
[2021-05-23] MEDS: traZODone HCL 50 MG TAB PO SCH (22:28)
[2021-05-23] MEDS: QUEtiapine FUMARATE 25 MG TAB PO SCH (22:29)
[2021-05-24] MEDS: MORPHINE SULFATE INJECTION 2 MG/ML SYRG IV PRN ×3 (02:55→17:02)
[2021-05-24 05:00] VITALS: BP 94/51
[2021-05-24] MEDS: hydrALAZINE HCL 25 MG TAB PO SCH (05:58)
[2021-05-24] MEDS: OXYCODONE W/ ACETAMINOPHEN 5/325MG TABLET PO SCH ×2 (05:59→14:00)
[2021-05-24] MEDS: DOCUSATE SOD 100 MG CAP PO SCH ×3 (06:24→22:30)
[2021-05-24] MEDS: CARISOPRODOL 350 MG TAB PO SCH ×4 (06:24→18:06)
[2021-05-24] MEDS: LEVOTHYROXINE SODIUM 50 MCG TAB PO SCH (06:24)
[2021-05-24 09:00] VITALS: BP 111/72
[2021-05-24] MEDS: GABAPENTIN 100 MG CAP PO SCH ×2 (09:41→22:30)
[2021-05-24] MEDS: SODIUM ZIRCONIUM CYCL 10 GM PAK PO SCH ×2 (09:41→22:30)
[2021-05-24] MEDS: cefTRIAXone 1GM/50ML D5W 50 ML IV SCH (09:41)
[2021-05-24] MEDS: SEVELAMER 800 MG TAB PO SCH ×3 (09:41→18:06)
[2021-05-24] MEDS: CLOPIDOGREL BISULFATE 75 MG TAB PO SCH (09:41)
[2021-05-24] MEDS: PANTOPRAZOLE 40 MG TAB PO SCH (09:41)
[2021-05-24] MEDS: METOPROLOL SUCCINATE XL 50 MG TAB PO SCH (09:42)
[2021-05-24] MEDS: ALPRAZolam 0.25 MG TAB PO SCH (09:42)
[2021-05-24] MEDS: NIFEdipine ER 30 MG TAB PO SCH (09:42)
[2021-05-24] MEDS: ENOXAPARIN SOD 30 MG/0.3 ML SYRINGE SC SCH (09:42)
[2021-05-24] MEDS: ASCORBIC ACID 500 MG TAB PO SCH ×2 (09:42→22:31)
[2021-05-24] MEDS: ISOSORBIDE MONONITRATE ER 60 MG TAB PO SCH (09:43)
[2021-05-24 13:00] VITALS: BP 102/70
[2021-05-24 17:00] VITALS: BP 102/68
[2021-05-24] MEDS: ATORVASTATIN 20 MG TAB PO SCH (22:30)
[2021-05-24] MEDS: traZODone HCL 50 MG TAB PO SCH (22:30)
[2021-05-24] MEDS: QUEtiapine FUMARATE 25 MG TAB PO SCH (22:30)
[2021-05-25] MEDS: OXYCODONE W/ ACETAMINOPHEN 5/325MG TABLET PO SCH ×4 (00:20→21:51)
[2021-05-25] MEDS: CARISOPRODOL 350 MG TAB PO SCH ×4 (01:12→18:22)
[2021-05-25] MEDS: MORPHINE SULFATE INJECTION 2 MG/ML SYRG IV PRN ×4 (04:46→18:23)
[2021-05-25 05:00] VITALS: BP 95/72
[2021-05-25 05:52] LABS: Hematocrit 30.7 % (36.0-46.0); Hemoglobin 10.1 g/dL (12.2-16.2); Mean Corpuscular Hemoglobin 31.6 pg (28.0-32.0); Mean Corpuscular Volume 95.9 fL (80.0-100.0); Red Cell Distribution Width 16.8 % (11.8-14.3); White Blood Cell 5.9 10^3/uL (4.4-10.8)
[2021-05-25] MEDS: DOCUSATE SOD 100 MG CAP PO SCH ×3 (06:00→21:51)
[2021-05-25 06:03] LABS: Basophils % (manual) 0 (0.0-2.0); Metamyelocytes % 0; Myelocytes % 0; Promyelocytes % 0
[2021-05-25 06:04] LABS: Blast Cells 0; Reactive Lymphocytes 0
[2021-05-25] MEDS ORDERED: SODIUM CHL 0.9% 1000 ML BAG XX ONE (07:00)
[2021-05-25 07:44] LABS: Band Neutrophils % (manual) 4; Lymphocytes % (manual) 29 (10.0-50.0)
[2021-05-25 07:45] LABS: Eosinophils % (manual) 2 (0-7); Monocytes % (manual) 18 (0-12)
[2021-05-25 07:53] LABS: BUN/Creatinine Ratio 6.4; Calcium 8.5 mg/dL (8.5-10.1)
[2021-05-25 07:58] LABS: Potassium 6.3 mmol/L (3.5-5.1)
[2021-05-25 08:30] VITALS: BP 110/70
[2021-05-25] MEDS: SODIUM ZIRCONIUM CYCL 10 GM PAK PO SCH ×2 (09:33→21:51)
[2021-05-25] MEDS: cefTRIAXone 1GM/50ML D5W 50 ML IV SCH (09:35)
[2021-05-25] MEDS: ENOXAPARIN SOD 30 MG/0.3 ML SYRINGE SC SCH (09:35)
[2021-05-25] MEDS: ASCORBIC ACID 500 MG TAB PO SCH ×2 (09:36→21:51)
[2021-05-25] MEDS: PANTOPRAZOLE 40 MG TAB PO SCH (09:36)
[2021-05-25] MEDS: LEVOTHYROXINE SODIUM 50 MCG TAB PO SCH (09:36)
[2021-05-25] MEDS: GABAPENTIN 100 MG CAP PO SCH ×2 (09:36→21:51)
[2021-05-25] MEDS: ALPRAZolam 0.25 MG TAB PO SCH (09:37)
[2021-05-25] MEDS: SEVELAMER 800 MG TAB PO SCH ×3 (09:37→18:22)
[2021-05-25] MEDS: CLOPIDOGREL BISULFATE 75 MG TAB PO SCH (09:37)
[2021-05-25] MEDS: NIFEdipine ER 30 MG TAB PO SCH (09:38)
[2021-05-25 13:29] VITALS: BP 117/76
[2021-05-25 16:30] VITALS: BP 119/73
[2021-05-25] MEDS ORDERED: EPOETIN ALFA-EPBX 10,000 UNIT/1ML VIAL SC ONE (21:00)
[2021-05-25] MEDS: ATORVASTATIN 20 MG TAB PO SCH (21:51)
[2021-05-25] MEDS: traZODone HCL 50 MG TAB PO SCH (21:51)
[2021-05-25] MEDS: QUEtiapine FUMARATE 25 MG TAB PO SCH (21:51)
[2021-05-25 22:25] VITALS: BP 95/65
[2021-05-26] MEDS: MORPHINE SULFATE INJECTION 2 MG/ML SYRG IV PRN ×4 (04:03→23:52)
[2021-05-26 05:26] VITALS: BP 93/61
[2021-05-26 06:06] LABS: BUN/Creatinine Ratio 6.4; Calcium 8.7 mg/dL (8.5-10.1)
[2021-05-26] MEDS: DOCUSATE SOD 100 MG CAP PO SCH ×3 (06:31→22:05)
[2021-05-26] MEDS: CARISOPRODOL 350 MG TAB PO SCH ×5 (06:31→23:51)
[2021-05-26] MEDS: LEVOTHYROXINE SODIUM 50 MCG TAB PO SCH (06:32)
[2021-05-26] MEDS: OXYCODONE W/ ACETAMINOPHEN 5/325MG TABLET PO SCH ×3 (06:32→22:05)
[2021-05-26] MEDS: SODIUM ZIRCONIUM CYCL 10 GM PAK PO SCH ×2 (07:30→22:06)
[2021-05-26] MEDS: cefTRIAXone 1GM/50ML D5W 50 ML IV SCH (08:22)
[2021-05-26] MEDS: SEVELAMER 800 MG TAB PO SCH ×3 (08:22→17:39)
[2021-05-26] MEDS: GABAPENTIN 100 MG CAP PO SCH ×2 (08:23→22:06)
[2021-05-26] MEDS: ASCORBIC ACID 500 MG TAB PO SCH ×2 (08:23→22:04)
[2021-05-26] MEDS: CLOPIDOGREL BISULFATE 75 MG TAB PO SCH (08:23)
[2021-05-26] MEDS: ENOXAPARIN SOD 30 MG/0.3 ML SYRINGE SC SCH (08:23)
[2021-05-26] MEDS: PANTOPRAZOLE 40 MG TAB PO SCH (08:23)
[2021-05-26] MEDS: NIFEdipine ER 30 MG TAB PO SCH (08:27)
[2021-05-26 09:30] VITALS: BP 106/62
[2021-05-26] MEDS: ALPRAZolam 0.25 MG TAB PO SCH (10:08)
[2021-05-26 13:00] VITALS: BP 110/65
[2021-05-26] MEDS ORDERED: FLEET ENEMA(ADULT) 135 ML PR ONE (13:15)
[2021-05-26 17:30] VITALS: BP 115/76
[2021-05-26 22:00] VITALS: BP 123/72
[2021-05-26] MEDS: QUEtiapine FUMARATE 25 MG TAB PO SCH (22:05)
[2021-05-26] MEDS: traZODone HCL 50 MG TAB PO SCH (22:06)
[2021-05-26] MEDS: ATORVASTATIN 20 MG TAB PO SCH (22:06)
[2021-05-27 05:00] VITALS: BP 101/67
[2021-05-27] MEDS: DOCUSATE SOD 100 MG CAP PO SCH ×3 (05:01→21:10)
[2021-05-27] MEDS: OXYCODONE W/ ACETAMINOPHEN 5/325MG TABLET PO SCH ×3 (05:01→21:10)
[2021-05-27] MEDS: CARISOPRODOL 350 MG TAB PO SCH ×3 (05:02→18:25)
[2021-05-27] MEDS: LEVOTHYROXINE SODIUM 50 MCG TAB PO SCH (06:21)
[2021-05-27 06:43] LABS: Hematocrit 28.5 % (36.0-46.0); Hemoglobin 9.3 g/dL (12.2-16.2)
[2021-05-27] MEDS ORDERED: SODIUM CHL 0.9% 1000 ML BAG XX ONE (07:00)
[2021-05-27] MEDS: SEVELAMER 800 MG TAB PO SCH ×3 (08:44→18:25)
[2021-05-27] MEDS: cefTRIAXone 1GM/50ML D5W 50 ML IV SCH (08:44)
[2021-05-27 09:00] VITALS: BP 105/74
[2021-05-27] MEDS: SODIUM ZIRCONIUM CYCL 10 GM PAK PO SCH ×2 (10:23→21:09)
[2021-05-27] MEDS: CLOPIDOGREL BISULFATE 75 MG TAB PO SCH (10:24)
[2021-05-27] MEDS: GABAPENTIN 100 MG CAP PO SCH ×2 (10:24→21:10)
[2021-05-27] MEDS: NIFEdipine ER 30 MG TAB PO SCH (10:24)
[2021-05-27] MEDS: PANTOPRAZOLE 40 MG TAB PO SCH (10:24)
[2021-05-27] MEDS: ALPRAZolam 0.25 MG TAB PO SCH (10:25)
[2021-05-27] MEDS: ENOXAPARIN SOD 30 MG/0.3 ML SYRINGE SC SCH (10:25)
[2021-05-27] MEDS: ASCORBIC ACID 500 MG TAB PO SCH ×2 (10:25→21:10)
[2021-05-27] MEDS: MORPHINE SULFATE INJECTION 2 MG/ML SYRG IV PRN (10:45)
[2021-05-27 12:07] LABS: BUN/Creatinine Ratio 7.2; Potassium 5.1 mmol/L (3.5-5.1)
[2021-05-27 12:08] LABS: Calcium 8.6 mg/dL (8.5-10.1)
[2021-05-27 12:55] VITALS: BP 107/68
[2021-05-27 17:00] VITALS: BP 78/49
[2021-05-27 19:30] VITALS: BP 97/60
[2021-05-27] MEDS ORDERED: EPOETIN ALFA-EPBX 10,000 UNIT/1ML VIAL SC ONE (21:00)
[2021-05-27] MEDS: traZODone HCL 50 MG TAB PO SCH (21:10)
[2021-05-27] MEDS: ATORVASTATIN 20 MG TAB PO SCH (21:10)
[2021-05-27] MEDS: QUEtiapine FUMARATE 25 MG TAB PO SCH (21:10)
[2021-05-27 22:00] VITALS: BP 100/54
[2021-05-28] MEDS: CARISOPRODOL 350 MG TAB PO SCH ×4 (00:17→18:00)
[2021-05-28 05:00] VITALS: BP 100/52
[2021-05-28] MEDS: DOCUSATE SOD 100 MG CAP PO SCH ×3 (06:01→21:19)
[2021-05-28] MEDS: OXYCODONE W/ ACETAMINOPHEN 5/325MG TABLET PO SCH ×3 (06:02→21:36)
[2021-05-28] MEDS: LEVOTHYROXINE SODIUM 50 MCG TAB PO SCH (06:02)
[2021-05-28 06:06] LABS: Hematocrit 28.9 % (36.0-46.0); Hemoglobin 9.3 g/dL (12.2-16.2); Mean Corpuscular Hemoglobin 31.3 pg (28.0-32.0); Mean Corpuscular Hgb Conc. 32.4 g/dL (32.0-36.0); Mean Corpuscular Volume 96.5 fL (80.0-100.0); Red Blood Cells 2.99 10^6/uL (4.0-5.20); White Blood Cell 14.4 10^3/uL (4.4-10.8)
[2021-05-28 06:29] LABS: Basophils % (manual) 0 (0.0-2.0); Blast Cells 0; Metamyelocytes % 0; Myelocytes % 0; Promyelocytes % 0; Reactive Lymphocytes 0
[2021-05-28] MEDS: SEVELAMER 800 MG TAB PO SCH ×3 (08:00→18:00)
[2021-05-28 09:00] VITALS: BP 99/59
[2021-05-28] MEDS: cefTRIAXone 1GM/50ML D5W 50 ML IV SCH (09:00)
[2021-05-28] MEDS: NIFEdipine ER 30 MG TAB PO SCH (10:00)
[2021-05-28] MEDS: GABAPENTIN 100 MG CAP PO SCH ×2 (10:00→21:20)
[2021-05-28] MEDS: ALPRAZolam 0.25 MG TAB PO SCH (10:01)
[2021-05-28] MEDS: SODIUM ZIRCONIUM CYCL 10 GM PAK PO SCH ×2 (10:01→21:20)
[2021-05-28] MEDS: PANTOPRAZOLE 40 MG TAB PO SCH (10:01)
[2021-05-28] MEDS: CLOPIDOGREL BISULFATE 75 MG TAB PO SCH (10:01)
[2021-05-28] MEDS: ASCORBIC ACID 500 MG TAB PO SCH ×2 (10:01→21:19)
[2021-05-28] MEDS: ENOXAPARIN SOD 30 MG/0.3 ML SYRINGE SC SCH (10:02)
[2021-05-28] MEDS: MORPHINE SULFATE INJECTION 2 MG/ML SYRG IV PRN ×2 (10:03→21:48)
[2021-05-28 10:09] LABS: Band Neutrophils % (manual) 2; Eosinophils % (manual) 3 (0-7); Lymphocytes % (manual) 32 (10.0-50.0); Monocytes % (manual) 16 (0-12)
[2021-05-28 13:00] VITALS: BP 82/53
[2021-05-28] MEDS ORDERED: VANCOMYCIN 500 MG in D5W 5% 100 ML IV ONE (16:00)
[2021-05-28 16:53] VITALS: BP 65/41
[2021-05-28] MEDS: ATORVASTATIN 20 MG TAB PO SCH (21:19)
[2021-05-28] MEDS: traZODone HCL 50 MG TAB PO SCH (21:19)
[2021-05-28] MEDS: QUEtiapine FUMARATE 25 MG TAB PO SCH (21:20)
[2021-05-28 22:16] VITALS: BP 110/60
[2021-05-29] MEDS: CARISOPRODOL 350 MG TAB PO SCH ×5 (00:52→23:45)
[2021-05-29 05:25] VITALS: BP 109/66
[2021-05-29] MEDS: DOCUSATE SOD 100 MG CAP PO SCH ×3 (06:04→22:02)
[2021-05-29] MEDS: OXYCODONE W/ ACETAMINOPHEN 5/325MG TABLET PO SCH ×4 (06:09→22:03)
[2021-05-29 07:00] LABS: Hematocrit 27.5 % (36.0-46.0); Hemoglobin 9.2 g/dL (12.2-16.2)
[2021-05-29] MEDS ORDERED: SODIUM CHL 0.9% 1000 ML BAG XX ONE ×2 (07:00→08:15)
[2021-05-29] MEDS: LEVOTHYROXINE SODIUM 50 MCG TAB PO SCH (07:03)
[2021-05-29] MEDS: SEVELAMER 800 MG TAB PO SCH ×3 (08:00→17:40)
[2021-05-29] MEDS ORDERED: ALBUMIN 25% 100 ML IV ONE (08:15)
[2021-05-29 09:20] VITALS: BP 104/61
[2021-05-29] MEDS: NIFEdipine ER 30 MG TAB PO SCH (10:00)
[2021-05-29] MEDS: cefTRIAXone 1GM/50ML D5W 50 ML IV SCH (10:31)
[2021-05-29] MEDS: SODIUM ZIRCONIUM CYCL 10 GM PAK PO SCH ×2 (10:32→22:05)
[2021-05-29] MEDS: GABAPENTIN 100 MG CAP PO SCH ×2 (10:33→22:02)
[2021-05-29] MEDS: CLOPIDOGREL BISULFATE 75 MG TAB PO SCH (10:33)
[2021-05-29] MEDS: PANTOPRAZOLE 40 MG TAB PO SCH (10:34)
[2021-05-29] MEDS: ALPRAZolam 0.25 MG TAB PO SCH (10:34)
[2021-05-29] MEDS: ASCORBIC ACID 500 MG TAB PO SCH ×2 (10:34→22:02)
[2021-05-29] MEDS: ENOXAPARIN SOD 30 MG/0.3 ML SYRINGE SC SCH (10:35)
[2021-05-29 13:30] VITALS: BP 154/83
[2021-05-29 16:58] VITALS: BP 138/82
[2021-05-29] MEDS ORDERED: EPOETIN ALFA-EPBX 10,000 UNIT/1ML VIAL SC ONE (21:00)
[2021-05-29] MEDS: ATORVASTATIN 20 MG TAB PO SCH (22:01)
[2021-05-29] MEDS: traZODone HCL 50 MG TAB PO SCH (22:03)
[2021-05-29] MEDS: QUEtiapine FUMARATE 25 MG TAB PO SCH (22:03)
[2021-05-29 22:25] VITALS: BP 97/62
[2021-05-30 05:00] VITALS: BP 92/53
[2021-05-30] MEDS: OXYCODONE W/ ACETAMINOPHEN 5/325MG TABLET PO SCH ×2 (05:17→14:13)
[2021-05-30] MEDS: DOCUSATE SOD 100 MG CAP PO SCH ×2 (05:17→14:13)
[2021-05-30] MEDS: CARISOPRODOL 350 MG TAB PO SCH ×2 (05:18→12:28)
[2021-05-30] MEDS: LEVOTHYROXINE SODIUM 50 MCG TAB PO SCH (05:30)
[2021-05-30] MEDS: SEVELAMER 800 MG TAB PO SCH ×2 (08:39→12:28)
[2021-05-30 09:00] VITALS: BP 81/48
[2021-05-30] MEDS: NIFEdipine ER 30 MG TAB PO SCH (10:00)
[2021-05-30] MEDS ORDERED: FLEET ENEMA(ADULT) 135 ML PR ONE (10:15)
[2021-05-30] MEDS: SODIUM ZIRCONIUM CYCL 10 GM PAK PO SCH (10:29)
[2021-05-30] MEDS: cefTRIAXone 1GM/50ML D5W 50 ML IV SCH (10:29)
[2021-05-30] MEDS: GABAPENTIN 100 MG CAP PO SCH (10:30)
[2021-05-30] MEDS: CLOPIDOGREL BISULFATE 75 MG TAB PO SCH (10:31)
[2021-05-30] MEDS: ASCORBIC ACID 500 MG TAB PO SCH (10:32)
[2021-05-30] MEDS: PANTOPRAZOLE 40 MG TAB PO SCH (10:32)
[2021-05-30] MEDS: ENOXAPARIN SOD 30 MG/0.3 ML SYRINGE SC SCH (10:33)
[2021-05-30] MEDS: ALPRAZolam 0.25 MG TAB PO SCH (10:33)
[2021-05-30 13:00] VITALS: BP 85/48
[2021-05-30] MEDS ORDERED: ALBUMIN 25% 50 ML IV ONE (14:15)
== END 2021-05-30 17:38 | DRG 548 ==
LOC: ER 12:35 → EDBD 12:35 → TELE 19:25 → TELE-WESTW 23:37
PROVIDERS: ADMIT Hospitalist; ATTEND Family Medicine
PROC: 5A1D70Z Performance of Urinary Filtration, Intermittent, Less than 6 Hours Per Day (ICD-10-PCS; 2021-05-21)
PROC: 0R9K3ZZ Drainage of Left Shoulder Joint, Percutaneous Approach (ICD-10-PCS; principal; 2021-05-22)
PROC: 05H933Z Insertion of Infusion Device into Right Brachial Vein, Percutaneous Approach (ICD-10-PCS; 2021-05-23)
PROC: B54MZZA Ultrasonography of Right Upper Extremity Veins, Guidance (ICD-10-PCS; 2021-05-23)
PROC: 5A1D70Z Performance of Urinary Filtration, Intermittent, Less than 6 Hours Per Day (ICD-10-PCS; 2021-05-25)
PROC: 5A1D70Z Performance of Urinary Filtration, Intermittent, Less than 6 Hours Per Day (ICD-10-PCS; 2021-05-27)
PROC: 5A1D70Z Performance of Urinary Filtration, Intermittent, Less than 6 Hours Per Day (ICD-10-PCS; 2021-05-29)
DX: M00.812 Arthritis due to other bacteria, left shoulder (principal); N18.6 End stage renal disease; I21.4 Non-ST elevation (NSTEMI) myocardial infarction; I50.33 Acute on chronic diastolic (congestive) heart failure; I13.2 Hypertensive heart and chronic kidney disease with heart failure and with stage 5 chronic kidney disease, or end stage renal disease; M86.8X1 Other osteomyelitis, shoulder; L89.102 Pressure ulcer of unspecified part of back, stage 2; M19.012 Primary osteoarthritis, left shoulder; Z99.2 Dependence on renal dialysis; F41.9 Anxiety disorder, unspecified; F32.9 Major depressive disorder, single episode, unspecified; I16.0 Hypertensive urgency; K29.70 Gastritis, unspecified, without bleeding; E03.9 Hypothyroidism, unspecified; E87.5 Hyperkalemia; G89.29 Other chronic pain; M54.50 Low back pain, unspecified; E66.9 Obesity, unspecified; I95.9 Hypotension, unspecified; Z20.822 Contact with and (suspected) exposure to COVID-19; K59.00 Constipation, unspecified; I25.10 Atherosclerotic heart disease of native coronary artery without angina pectoris; I48.91 Unspecified atrial fibrillation; L89.159 Pressure ulcer of sacral region, unspecified stage; J44.9 Chronic obstructive pulmonary disease, unspecified; Z79.02 Long term (current) use of antithrombotics/antiplatelets; Z79.899 Other long term (current) drug therapy; Z80.3 Family history of malignant neoplasm of breast; Z82.49 Family history of ischemic heart disease and other diseases of the circulatory system; Z87.891 Personal history of nicotine dependence; Z95.5 Presence of coronary angioplasty implant and graft; Z98.1 Arthrodesis status; Z99.81 Dependence on supplemental oxygen; Z68.25 Body mass index [BMI] 25.0-25.9, adult
CPT/HCPCS: 36415; 73030; 73221; 76881; 76942; 80048; 80053; 80202; 82306; 82565; 82728; 83036; 83540; 83550; 83605; 83735; 83880; 83970; 84100; 84132; 84443; 84484; 84550; 85007; 85014; 85018; 85025; 85027; 85379; 85610; 85652; 85730; 86141; 87040; 87340; 87426; 90935; 93005; 93971; 96365; 96375; G0378; J0696; J1642; J2405; J2543; J7060; P9047

== ENCOUNTER 2021-06-09 22:19 | Inpatient (IN) | payer MEDICARE, MEDICAID ==
[~2021-06-09] VITALS: Ht 167.6 cm; Wt 67.1 kg
[2021-06-10 01:19] LABS: Hematocrit 29.2 % (36.0-46.0); Hemoglobin 9.3 g/dL (12.2-16.2); Mean Corpuscular Hemoglobin 30.6 pg (28.0-32.0); Mean Corpuscular Hgb Conc. 31.7 g/dL (32.0-36.0); Mean Corpuscular Volume 96.4 fL (80.0-100.0); Red Blood Cells 3.03 10^6/uL (4.0-5.20); Red Cell Distribution Width 17.9 % (11.8-14.3); White Blood Cell 7.5 10^3/uL (4.4-10.8)
[2021-06-10 01:35] LABS: INR 1.13 (0.9-1.15)
[2021-06-10 01:40] LABS: Band Neutrophils % (manual) 0; Basophils % (manual) 0 (0.0-2.0); Blast Cells 0; Metamyelocytes % 0; Myelocytes % 0; Promyelocytes % 0; Reactive Lymphocytes 0
[2021-06-10 01:46] LABS: Albumin 1.8 g/dL (3.4-5.0); Anion Gap 11 (5-15); Blood Urea Nitrogen 45 mg/dL (7-18); Calcium 7.4 mg/dL (8.5-10.1); Carbon Dioxide 23 mmol/L (21-32); Chloride 103 mmol/L (98-107); Glucose 80 mg/dL (74-106); Magnesium 3.2 mg/dL (1.6-2.6); Potassium 4.8 mmol/L (3.5-5.1); Sodium 137 mmol/L (136-145)
[2021-06-10 01:52] LABS: Alanine Aminotransferase < 6 U/L (13-56); Alkaline Phosphatase 89 U/L (45-117); Aspartate Aminotransferase 6 U/L (15-37); BUN/Creatinine Ratio 7.4; Bilirubin, Total 0.2 mg/dL (0.2-1.0); GFR African American 9 mL/min; GFR Non-African American 7 mL/min; Phosphorus 5.5 mg/dL (2.5-4.90); Total Protein 8.1 g/dL (6.4-8.2)
[2021-06-10] MEDS ORDERED: VANCOMYCIN 1GM/250ML 250 ML IV ONE (02:15)
[2021-06-10] MEDS ORDERED: cefTRIAXone 1GM/50ML D5W 50 ML IV ONE (02:15)
[2021-06-10 02:19] LABS: Lymphocytes % (manual) 24 (10.0-50.0)
[2021-06-10 02:20] LABS: Eosinophils % (manual) 2 (0-7); Monocytes % (manual) 15 (0-12)
[2021-06-10] MEDS ORDERED: fentaNYL CITRATE 100 MCG/2 ML VL IV ONE ×3 (04:15→18:00)
[2021-06-10] MEDS ORDERED: ONDANSETRON HCL 4 MG/2 ML VIAL IV ONE ×4 (04:15→21:45)
[2021-06-10] MEDS ORDERED: fentaNYL CITRATE 100 MCG/2 ML VL IV PRN (21:45)
[2021-06-10] MEDS ORDERED: ACETAMINOPHEN 325 MG TAB PO PRN (22:00)
[2021-06-10] MEDS ORDERED: ONDANSETRON HCL 4 MG/2 ML VIAL IV PRN (22:00)
[2021-06-10] MEDS ORDERED: VANCOMYCIN PER PHARMACY 0 MG IV SCH (22:00)
[2021-06-10] MEDS ORDERED: SODIUM CHLORIDE 0.9% 1,000 ML IV SCH (22:00)
[2021-06-10] MEDS ORDERED: fentaNYL CITRATE 100 MCG/2 ML VL ONE (22:34)
[2021-06-11] VITALS (7 sets, daily range): BP systolic 112–153; BP diastolic 64–90
[2021-06-11] MEDS: MORPHINE SULFATE INJECTION 2 MG/ML SYRG IV PRN ×5 (02:02→21:01)
[2021-06-11 09:41] LABS: Hematocrit 28.6 % (36.0-46.0); Hemoglobin 9.3 g/dL (12.2-16.2); Mean Corpuscular Hgb Conc. 32.3 g/dL (32.0-36.0); Red Blood Cells 2.98 10^6/uL (4.0-5.20); Red Cell Distribution Width 17.5 % (11.8-14.3); White Blood Cell 6.2 10^3/uL (4.4-10.8)
[2021-06-11 09:58] LABS: Basophils % (manual) 0 (0.0-2.0); Blast Cells 0; Metamyelocytes % 0; Myelocytes % 0; Promyelocytes % 0; Reactive Lymphocytes 0
[2021-06-11 10:02] LABS: Albumin 1.9 g/dL (3.4-5.0); Calcium 8.1 mg/dL (8.5-10.1)
[2021-06-11 10:05] LABS: Bilirubin, Total 0.2 mg/dL (0.2-1.0); Total Protein 7.6 g/dL (6.4-8.2)
[2021-06-11] MEDS: PANTOPRAZOLE 40 MG/10 ML VIAL INJ IV SCH (10:31)
[2021-06-11] MEDS: DOCUSATE SOD 100 MG CAP PO SCH ×2 (10:32→21:53)
[2021-06-11 10:35] LABS: Potassium 6.9 mmol/L (3.5-5.1)
[2021-06-11] MEDS ORDERED: CALCIUM GLUC 1,000mg/50ml-NS 50 ML IV ONE (10:45)
[2021-06-11] MEDS ORDERED: LEVOTHYROXINE SODIUM 100 MCG TAB PO ONE (10:45)
[2021-06-11] MEDS ORDERED: TEMAZEPAM 15 MG CAP PO PRN (10:45)
[2021-06-11] MEDS ORDERED: SODIUM CHL 0.9% 1000 ML BAG XX ONE (11:45)
[2021-06-11] MEDS: SEVELAMER 800 MG TAB PO SCH ×2 (12:00→18:15)
[2021-06-11 12:51] LABS: Band Neutrophils % (manual) 1; Lymphocytes % (manual) 29 (10.0-50.0)
[2021-06-11 12:52] LABS: Eosinophils % (manual) 2 (0-7); Monocytes % (manual) 16 (0-12)
[2021-06-11] MEDS ORDERED: ALBUMIN 25% 100 ML IV SCH (14:00)
[2021-06-11] MEDS ORDERED: VANCOMYCIN 1GM/250ML 250 ML IV ONE (16:00)
[2021-06-11] MEDS ORDERED: EPOETIN ALFA-EPBX 10,000 UNIT/1ML VIAL SC ONE (21:00)
[2021-06-11] MEDS: cefTRIAXone 1GM/50ML D5W 50 ML IV SCH (21:02)
[2021-06-11] MEDS: GABAPENTIN 100 MG CAP PO SCH (21:53)
[2021-06-11] MEDS: HYDROcodone-ACET 5/325MG TAB PO PRN (23:18)
[2021-06-12] MEDS: MORPHINE SULFATE INJECTION 2 MG/ML SYRG IV PRN ×5 (01:13→21:27)
[2021-06-12] MEDS: HYDROcodone-ACET 5/325MG TAB PO PRN (03:32)
[2021-06-12 05:00] VITALS: BP 125/72
[2021-06-12] MEDS: LEVOTHYROXINE SODIUM 100 MCG TAB PO SCH (06:26)
[2021-06-12 06:30] LABS: Hematocrit 26.2 % (36.0-46.0); Hemoglobin 8.7 g/dL (12.2-16.2); Mean Corpuscular Hemoglobin 31.4 pg (28.0-32.0); Mean Corpuscular Volume 95.2 fL (80.0-100.0); Red Blood Cells 2.75 10^6/uL (4.0-5.20); Red Cell Distribution Width 17.5 % (11.8-14.3); White Blood Cell 4.9 10^3/uL (4.4-10.8)
[2021-06-12 06:38] LABS: Basophils % (manual) 0 (0.0-2.0); Blast Cells 0; Eosinophils % (manual) 0 (0-7); Metamyelocytes % 0; Myelocytes % 0; Promyelocytes % 0; Reactive Lymphocytes 0
[2021-06-12 06:47] LABS: BUN/Creatinine Ratio 7.3; Calcium 8.1 mg/dL (8.5-10.1); Potassium 4.8 mmol/L (3.5-5.1)
[2021-06-12] MEDS: SEVELAMER 800 MG TAB PO SCH ×3 (08:00→17:37)
[2021-06-12 08:37] LABS: Band Neutrophils % (manual) 1; Lymphocytes % (manual) 29 (10.0-50.0); Monocytes % (manual) 20 (0-12)
[2021-06-12 08:48] VITALS: BP 134/80
[2021-06-12] MEDS: DOCUSATE SOD 100 MG CAP PO SCH ×2 (10:00→21:23)
[2021-06-12] MEDS: GABAPENTIN 100 MG CAP PO SCH ×2 (10:00→21:23)
[2021-06-12] MEDS: PANTOPRAZOLE 40 MG/10 ML VIAL INJ IV SCH (10:43)
[2021-06-12 13:00] VITALS: BP 140/85
[2021-06-12 16:59] VITALS: BP 134/76
[2021-06-12] MEDS: cefTRIAXone 1GM/50ML D5W 50 ML IV SCH (21:28)
[2021-06-12] MEDS: ALPRAZolam 0.25 MG TAB PO PRN (21:28)
[2021-06-12 22:00] VITALS: BP 134/75
[2021-06-13 05:00] VITALS: BP 163/81
[2021-06-13] MEDS: LEVOTHYROXINE SODIUM 100 MCG TAB PO SCH (06:18)
[2021-06-13] MEDS: MORPHINE SULFATE INJECTION 2 MG/ML SYRG IV PRN ×4 (06:22→21:11)
[2021-06-13 06:37] LABS: Hematocrit 30.1 % (36.0-46.0); Hemoglobin 9.6 g/dL (12.2-16.2); Mean Corpuscular Hemoglobin 30.4 pg (28.0-32.0); Mean Corpuscular Hgb Conc. 31.7 g/dL (32.0-36.0); Mean Corpuscular Volume 95.9 fL (80.0-100.0); Red Blood Cells 3.14 10^6/uL (4.0-5.20); Red Cell Distribution Width 17.3 % (11.8-14.3)
[2021-06-13 06:54] LABS: Band Neutrophils % (manual) 0; Basophils % (manual) 0 (0.0-2.0); Blast Cells 0; Metamyelocytes % 0; Myelocytes % 0; Promyelocytes % 0; Reactive Lymphocytes 0
[2021-06-13 08:07] LABS: BUN/Creatinine Ratio 7.2; Calcium 8.4 mg/dL (8.5-10.1)
[2021-06-13 08:20] LABS: Potassium 5.7 mmol/L (3.5-5.1)
[2021-06-13 09:00] VITALS: BP 147/91
[2021-06-13] MEDS: PANTOPRAZOLE 40 MG/10 ML VIAL INJ IV SCH (09:38)
[2021-06-13] MEDS: GABAPENTIN 100 MG CAP PO SCH ×2 (09:39→21:10)
[2021-06-13] MEDS: SEVELAMER 800 MG TAB PO SCH ×2 (09:39→14:04)
[2021-06-13] MEDS: DOCUSATE SOD 100 MG CAP PO SCH ×2 (09:39→21:09)
[2021-06-13] MEDS: MUPIROCIN 2% OINT 15gm or 22gm EACHNOSTRI SCH ×2 (09:40→21:09)
[2021-06-13 11:19] LABS: Eosinophils % (manual) 6 (0-7); Lymphocytes % (manual) 34 (10.0-50.0); Monocytes % (manual) 22 (0-12)
[2021-06-13] MEDS ORDERED: SODIUM ZIRCONIUM CYCL 10 GM PAK PO ONE (12:15)
[2021-06-13 12:35] VITALS: BP 136/85
[2021-06-13] MEDS ORDERED: CARISOPRODOL 350 MG TAB PO SCH (14:00)
[2021-06-13] MEDS ORDERED: CARISOPRODOL 350 MG TAB PO PRN (14:15)
[2021-06-13] MEDS: HYDROcodone-ACET 5/325MG TAB PO PRN (14:48)
[2021-06-13] MEDS ORDERED: SODIUM CHL 0.9% 1000 ML BAG XX ONE (15:45)
[2021-06-13 16:48] VITALS: BP 102/59
[2021-06-13] MEDS ORDERED: EPOETIN ALFA-EPBX 10,000 UNIT/1ML VIAL SC ONE (21:00)
[2021-06-13] MEDS: cefTRIAXone 1GM/50ML D5W 50 ML IV SCH (21:07)
[2021-06-13] MEDS: ALPRAZolam 0.25 MG TAB PO PRN (21:10)
[2021-06-13 22:00] VITALS: BP 140/79
[2021-06-14 05:00] VITALS: BP 144/88
[2021-06-14] MEDS: MORPHINE SULFATE INJECTION 2 MG/ML SYRG IV PRN ×4 (05:52→22:59)
[2021-06-14] MEDS: LEVOTHYROXINE SODIUM 100 MCG TAB PO SCH (05:53)
[2021-06-14] MEDS: SEVELAMER 800 MG TAB PO SCH ×4 (08:22→18:30)
[2021-06-14 09:26] VITALS: BP 127/77
[2021-06-14] MEDS: DOCUSATE SOD 100 MG CAP PO SCH ×2 (09:58→21:00)
[2021-06-14] MEDS: PANTOPRAZOLE 40 MG/10 ML VIAL INJ IV SCH (09:59)
[2021-06-14] MEDS: MUPIROCIN 2% OINT 15gm or 22gm EACHNOSTRI SCH ×2 (10:00→21:00)
[2021-06-14] MEDS: GABAPENTIN 100 MG CAP PO SCH ×2 (10:00→21:00)
[2021-06-14] MEDS: CARISOPRODOL 350 MG TAB PO SCH ×2 (12:38→18:00)
[2021-06-14 13:00] VITALS: BP 111/75
[2021-06-14 17:00] VITALS: BP 120/71
[2021-06-14] MEDS: HYDROcodone-ACET 5/325MG TAB PO PRN (21:00)
[2021-06-14] MEDS: cefTRIAXone 1GM/50ML D5W 50 ML IV SCH (21:00)
[2021-06-14 22:00] VITALS: BP 104/65
[2021-06-15] MEDS: CARISOPRODOL 350 MG TAB PO SCH ×3 (01:53→18:30)
[2021-06-15] MEDS: MORPHINE SULFATE INJECTION 2 MG/ML SYRG IV PRN ×4 (03:50→21:00)
[2021-06-15 05:00] VITALS: BP 130/83
[2021-06-15] MEDS: LEVOTHYROXINE SODIUM 100 MCG TAB PO SCH (06:09)
[2021-06-15 09:00] VITALS: BP 112/78
[2021-06-15] MEDS ORDERED: FLEET ENEMA(ADULT) 135 ML PR ONE (09:15)
[2021-06-15] MEDS: GABAPENTIN 100 MG CAP PO SCH ×2 (10:17→20:59)
[2021-06-15] MEDS: DOCUSATE SOD 100 MG CAP PO SCH ×2 (10:17→20:59)
[2021-06-15] MEDS: SEVELAMER 800 MG TAB PO SCH ×2 (10:17→18:28)
[2021-06-15] MEDS: FAMOTIDINE 20 MG TAB PO SCH (10:17)
[2021-06-15] MEDS: MUPIROCIN 2% OINT 15gm or 22gm EACHNOSTRI SCH ×4 (10:21→20:58)
[2021-06-15 13:00] VITALS: BP 104/70
[2021-06-15 17:00] VITALS: BP 110/77
[2021-06-15] MEDS: cefTRIAXone 1GM/50ML D5W 50 ML IV SCH (20:58)
[2021-06-15 22:00] VITALS: BP 129/75
[2021-06-16] MEDS: CARISOPRODOL 350 MG TAB PO SCH ×2 (02:09→09:56)
[2021-06-16] MEDS: MORPHINE SULFATE INJECTION 2 MG/ML SYRG IV PRN ×3 (02:18→14:55)
[2021-06-16 06:13] LABS: Basophils # (auto) 0 10 ^3/uL (0-0.2); Eosinophils # (auto) 0.1 10 ^3/uL (0-0.8); Hematocrit 28.5 % (36.0-46.0); Lymphocytes # (auto) 1.8 10 ^3/uL (0.4-5.4); Lymphocytes % (auto) 34.9 % (10.0-50.0); Mean Corpuscular Hemoglobin 29.8 pg (28.0-32.0); Mean Corpuscular Hgb Conc. 31.7 g/dL (32.0-36.0); Neutrophils # (auto) 2.2 10 ^3/uL (1.6-8.6); Neutrophils % (auto) 42.9 % (37.0-80.0); Red Blood Cells 3.03 10^6/uL (4.0-5.20); White Blood Cell 5.1 10^3/uL (4.4-10.8)
[2021-06-16 06:14] LABS: Monocytes % (auto) 19.2 % (0.0-12.0)
[2021-06-16] MEDS: LEVOTHYROXINE SODIUM 100 MCG TAB PO SCH (06:14)
[2021-06-16 06:26] LABS: BUN/Creatinine Ratio 7.8; Calcium 8.1 mg/dL (8.5-10.1)
[2021-06-16] MEDS ORDERED: SODIUM CHL 0.9% 1000 ML BAG XX ONE (07:00)
[2021-06-16 07:16] LABS: Potassium 6.1 mmol/L (3.5-5.1)
[2021-06-16] MEDS: SEVELAMER 800 MG TAB PO SCH ×2 (08:18→12:17)
[2021-06-16 08:51] VITALS: BP 97/65
[2021-06-16] MEDS: FAMOTIDINE 20 MG TAB PO SCH (09:53)
[2021-06-16] MEDS: DOCUSATE SOD 100 MG CAP PO SCH (09:53)
[2021-06-16] MEDS: MUPIROCIN 2% OINT 15gm or 22gm EACHNOSTRI SCH ×2 (09:55→10:03)
[2021-06-16] MEDS: GABAPENTIN 100 MG CAP PO SCH (09:56)
[2021-06-16 12:53] VITALS: BP 147/70
[2021-06-16 13:00] VITALS: BP 147/70
[2021-06-16 16:22] VITALS: BP 105/76
[2021-06-16] MEDS ORDERED: VANCOMYCIN 500 MG in D5W 5% 100 ML IV ONE (17:00)
[2021-06-16] MEDS: HYDROcodone-ACET 5/325MG TAB PO PRN (17:44)
[2021-06-16] MEDS ORDERED: EPOETIN ALFA-EPBX 10,000 UNIT/1ML VIAL SC ONE (21:00)
== END 2021-06-16 18:45 | disposition home health service (06) | DRG 548 ==
LOC: EDBD 22:19 → ER 22:19 → OVERFLOW 06-10 21:54 → CENTRAL 06-11 03:45
PROVIDERS: ADMIT Nurse Practitioner; ATTEND Internal Medicine
PROC: 5A1D70Z Performance of Urinary Filtration, Intermittent, Less than 6 Hours Per Day (ICD-10-PCS; 2021-06-11)
PROC: 05HY33Z Insertion of Infusion Device into Upper Vein, Percutaneous Approach (ICD-10-PCS; 2021-06-12)
PROC: 5A1D70Z Performance of Urinary Filtration, Intermittent, Less than 6 Hours Per Day (ICD-10-PCS; 2021-06-13)
PROC: 5A1D70Z Performance of Urinary Filtration, Intermittent, Less than 6 Hours Per Day (ICD-10-PCS; principal; 2021-06-16)
DX: M00.012 Staphylococcal arthritis, left shoulder (principal); L89.93 Pressure ulcer of unspecified site, stage 3; N18.6 End stage renal disease; E44.0 Moderate protein-calorie malnutrition; I13.2 Hypertensive heart and chronic kidney disease with heart failure and with stage 5 chronic kidney disease, or end stage renal disease; G82.20 Paraplegia, unspecified; I50.32 Chronic diastolic (congestive) heart failure; J96.10 Chronic respiratory failure, unspecified whether with hypoxia or hypercapnia; L89.150 Pressure ulcer of sacral region, unstageable; Z20.822 Contact with and (suspected) exposure to COVID-19; M54.9 Dorsalgia, unspecified; E11.22 Type 2 diabetes mellitus with diabetic chronic kidney disease; D63.1 Anemia in chronic kidney disease; E83.39 Other disorders of phosphorus metabolism; E87.5 Hyperkalemia; E03.9 Hypothyroidism, unspecified; E78.5 Hyperlipidemia, unspecified; G89.29 Other chronic pain; Z88.8 Allergy status to other drugs, medicaments and biological substances; Z99.2 Dependence on renal dialysis; Z74.01 Bed confinement status; Z68.22 Body mass index [BMI] 22.0-22.9, adult; Z82.49 Family history of ischemic heart disease and other diseases of the circulatory system; Z80.3 Family history of malignant neoplasm of breast
CPT/HCPCS: 36415; 71045; 73030; 80048; 80053; 80202; 83605; 83735; 84100; 84443; 84484; 85007; 85025; 85027; 85610; 85652; 86141; 87040; 87081; 87426; 90935; 93306; 96365; 96366; 96368; 96375; 96376; C9113; G0378; J0696; J1642; J2405; J7060; P9047

== ENCOUNTER 2021-08-26 17:27 | Inpatient (IN) | payer MEDICARE, MEDICAID ==
[~2021-08-26] VITALS: Ht 162.6 cm; Wt 57.7 kg
[2021-08-26] MEDS ORDERED: ASPirin 81 mg TAB PO ONE (18:30)
[2021-08-26] MEDS ORDERED: hydrALAZINE HCL 20 MG/ML VL IV ONE (18:30)
[2021-08-26 18:58] LABS: Basophils # (auto) 0 10 ^3/uL (0-0.2); Basophils % (auto) 0.5 % (0.0-2.0); Eosinophils # (auto) 0 10 ^3/uL (0-0.8); Eosinophils % (auto) 0.7 % (0.0-7.0); Hematocrit 26.3 % (36.0-46.0); Hemoglobin 8.5 g/dL (12.2-16.2); Lymphocytes # (auto) 1.4 10 ^3/uL (0.4-5.4); Lymphocytes % (auto) 21.6 % (10.0-50.0); Mean Corpuscular Hemoglobin 28.9 pg (28.0-32.0); Mean Corpuscular Hgb Conc. 32.3 g/dL (32.0-36.0); Mean Corpuscular Volume 89.5 fL (80.0-100.0); Monocytes % (auto) 15.4 % (0.0-12.0); Neutrophils % (auto) 61.8 % (37.0-80.0); Red Blood Cells 2.94 10^6/uL (4.0-5.20); Red Cell Distribution Width 19.1 % (11.8-14.3); White Blood Cell 6.4 10^3/uL (4.4-10.8)
[2021-08-26 19:15] LABS: Albumin 2.3 g/dL (3.4-5.0); Anion Gap 9 (5-15); Blood Urea Nitrogen 10 mg/dL (7-18); Calcium 7.9 mg/dL (8.5-10.1); Carbon Dioxide 27 mmol/L (21-32); Chloride 104 mmol/L (98-107); Glucose 84 mg/dL (74-106); Potassium 3.3 mmol/L (3.5-5.1); Sodium 140 mmol/L (136-145)
[2021-08-26 19:20] LABS: Alanine Aminotransferase < 6 U/L (13-56); Alkaline Phosphatase 144 U/L (45-117); Aspartate Aminotransferase 5 U/L (15-37); Bilirubin, Total 0.4 mg/dL (0.2-1.0); GFR African American 25 mL/min; GFR Non-African American 21 mL/min; Total Protein 7.9 g/dL (6.4-8.2)
[2021-08-26] MEDS ORDERED: ASPirin 325 MG TAB PO STA (21:39)
[2021-08-26] MEDS ORDERED: CLOPIDOGREL 300 MG TAB PO ONE (21:45)
[2021-08-26] MEDS ORDERED: NITROGLYCERIN 0.4 MG SL TAB SL PRN ×2 (21:45)
[2021-08-26] MEDS ORDERED: MORPHINE SULFATE INJECTION 2 MG/ML SYRG IV PRN (21:45)
[2021-08-26] MEDS ORDERED: ACETAMINOPHEN 325 MG TAB PO PRN (21:45)
[2021-08-26] MEDS ORDERED: MORPHINE SULFATE 4 MG/ML SYR/VIAL IV PRN (21:45)
[2021-08-26] MEDS ORDERED: HYDROGEL 60 GRAM GEL TOP ONE (22:00)
[2021-08-26] MEDS ORDERED: HEPARIN SODIUM (PORCINE) 5000 UNITS/ML 1ML VIAL IV ONE (22:00)
[2021-08-26] MEDS ORDERED: PATIENTS OWN MEDICATION (Carvedilol 1 TAB) PO SCH (22:00)
[2021-08-26] MEDS ORDERED: PATIENTS OWN MEDICATION (Sevelamer Carbonate (Renvela) 2 TAB) PO SCH (22:00)
[2021-08-26 22:23] LABS: INR 1.14 (0.9-1.15); Partial Thromboplastin Time 34.1 sec (23.6-33.0)
[2021-08-26] MEDS: DESITIN (ZINC OXIDE 40%) OINT 28G TUBE TOP SCH (22:53)
[2021-08-26] MEDS: ATORVASTATIN 20 MG TAB PO SCH (22:57)
[2021-08-26] MEDS ORDERED: HEPARIN SODIUM (PORCINE) 5000 UNITS/ML 1ML VIAL ONE (22:57)
[2021-08-26] MEDS: HYDROcodone-ACET 5/325MG TAB PO SCH (22:57)
[2021-08-26] MEDS ORDERED: LABETALOL HCL 5 MG/ML 4ML SYRINGE IV ONE (23:00)
[2021-08-26] MEDS: HEPARIN DRIP/D5W 100UNITS/ML 250 ML IV SCH (23:19)
[2021-08-26] MEDS: CARVEDILOL 3.125 MG TAB PO SCH ×2 (23:20→23:21)
[2021-08-26] MEDS: ONDANSETRON HCL 4 MG/2 ML VIAL IV PRN (23:37)
[2021-08-27] VITALS (8 sets, daily range): BP systolic 134–176; BP diastolic 78–99
[2021-08-27] MEDS: MORPHINE SULFATE INJECTION 2 MG/ML SYRG IV PRN ×5 (00:24→20:40)
[2021-08-27] MEDS ORDERED: LABETALOL HCL 5 MG/ML ML 20ML VIAL IV ONE (01:11)
[2021-08-27] MEDS ORDERED: DOCUSATE SOD 100 MG CAP PO PRN (02:30)
[2021-08-27] MEDS: ONDANSETRON HCL 4 MG/2 ML VIAL IV PRN ×2 (05:16→20:40)
[2021-08-27] MEDS: LABETALOL HCL 5 MG/ML 4ML SYRINGE IV PRN (05:36)
[2021-08-27] MEDS: LEVOTHYROXINE SODIUM 100 MCG TAB PO SCH (06:23)
[2021-08-27] MEDS: HYDROcodone-ACET 5/325MG TAB PO SCH ×3 (06:24→22:38)
[2021-08-27 06:59] LABS: INR 1.14 (0.9-1.15); Partial Thromboplastin Time 36.2 sec (23.6-33.0)
[2021-08-27] MEDS ORDERED: PATIENTS OWN MEDICATION (Levothyroxine Sodium 200 MCG) PO SCH (07:00)
[2021-08-27 07:03] LABS: Chloride 103 mmol/L (98-107); Potassium 3.3 mmol/L (3.5-5.1); Sodium 138 mmol/L (136-145)
[2021-08-27 07:10] LABS: Alanine Aminotransferase < 6 U/L (13-56); Albumin 2.4 g/dL (3.4-5.0); Alkaline Phosphatase 146 U/L (45-117); Anion Gap 10 (5-15); Aspartate Aminotransferase 9 U/L (15-37); BUN/Creatinine Ratio 5.1; Bilirubin, Total 0.3 mg/dL (0.2-1.0); Blood Urea Nitrogen 16 mg/dL (7-18); Calcium 7.2 mg/dL (8.5-10.1); Carbon Dioxide 25 mmol/L (21-32); Cholesterol 119 mg/dL (< 200); GFR African American 19 mL/min; GFR Non-African American 16 mL/min; Glucose 78 mg/dL (74-106); HDL Cholesterol 58 mg/dL (40-59); LDL Cholesterol 44 mg/dL (< 100); Magnesium 2.2 mg/dL (1.6-2.6); Total Protein 7.8 g/dL (6.4-8.2); Triglycerides 103 mg/dL (< 150)
[2021-08-27 07:17] LABS: Eosinophils # (auto) 0 10 ^3/uL (0-0.8); Hemoglobin 8.4 g/dL (12.2-16.2); Mean Corpuscular Volume 90.1 fL (80.0-100.0); Monocytes # (auto) 0.9 10 ^3/uL (0-1.3); White Blood Cell 7.5 10^3/uL (4.4-10.8)
[2021-08-27 07:19] LABS: Basophils # (auto) 0.1 10 ^3/uL (0-0.2); Basophils % (auto) 0.7 % (0.0-2.0); Eosinophils % (auto) 0.3 % (0.0-7.0); Hematocrit 25.5 % (36.0-46.0); Lymphocytes # (auto) 1.8 10 ^3/uL (0.4-5.4); Lymphocytes % (auto) 23.9 % (10.0-50.0); Mean Corpuscular Hemoglobin 29.7 pg (28.0-32.0); Mean Corpuscular Hgb Conc. 32.9 g/dL (32.0-36.0); Monocytes % (auto) 12.1 % (0.0-12.0); Neutrophils # (auto) 4.8 10 ^3/uL (1.6-8.6); Red Blood Cells 2.83 10^6/uL (4.0-5.20); Red Cell Distribution Width 19.6 % (11.8-14.3)
[2021-08-27] MEDS: HEPARIN DRIP/D5W 100UNITS/ML 250 ML IV SCH (08:18)
[2021-08-27] MEDS ORDERED: HEPARIN DRIP/D5W 100UNITS/ML 250 ML IV SCH (08:45)
[2021-08-27] MEDS ORDERED: POTASSIUM CHL 20 Meq TABLET PO ONE (09:30)
[2021-08-27] MEDS: SEVELAMER 800 MG TAB PO SCH ×3 (09:31→18:04)
[2021-08-27] MEDS: ASPirin 81 mg TAB PO SCH (09:32)
[2021-08-27] MEDS: PANTOPRAZOLE 40 MG TAB PO SCH (09:41)
[2021-08-27] MEDS: LOSARTAN POTASSIUM 50 MG TAB PO SCH (09:41)
[2021-08-27] MEDS: CINACALCET HYDROCHLORIDE 30 MG TAB PO SCH (09:42)
[2021-08-27] MEDS: DESITIN (ZINC OXIDE 40%) OINT 28G TUBE TOP SCH ×2 (09:42→22:37)
[2021-08-27] MEDS ORDERED: PATIENTS OWN MEDICATION (Losartan Potassium 100 MG) PO SCH (10:00)
[2021-08-27] MEDS ORDERED: CLOPIDOGREL BISULFATE 75 MG TAB PO SCH ×2 (10:00)
[2021-08-27] MEDS: amLODIPine BESYLATE 5 MG TAB PO SCH (10:03)
[2021-08-27] MEDS: METOPROLOL TARTRATE 50 MG TAB PO SCH ×3 (10:03→22:37)
[2021-08-27] MEDS: ENOXAPARIN SOD 30 MG/0.3 ML SYRINGE SC SCH (11:50)
[2021-08-27] MEDS: ATORVASTATIN 20 MG TAB PO SCH (20:39)
[2021-08-28 05:00] VITALS: BP 160/102
[2021-08-28] MEDS: HYDROcodone-ACET 5/325MG TAB PO SCH ×2 (05:40→14:10)
[2021-08-28 05:52] LABS: Hematocrit 25.9 % (36.0-46.0); Hemoglobin 8.2 g/dL (12.2-16.2)
[2021-08-28 06:20] LABS: Potassium 4.5 mmol/L (3.5-5.1)
[2021-08-28 06:26] LABS: BUN/Creatinine Ratio 5.6
[2021-08-28] MEDS: LEVOTHYROXINE SODIUM 100 MCG TAB PO SCH (07:00)
[2021-08-28] MEDS ORDERED: SODIUM CHL 0.9% 1000 ML BAG XX ONE (07:00)
[2021-08-28] MEDS: SEVELAMER 800 MG TAB PO SCH ×3 (08:00→18:00)
[2021-08-28 09:00] VITALS: BP 148/88
[2021-08-28] MEDS: ASPirin 81 mg TAB PO SCH (09:47)
[2021-08-28] MEDS: PANTOPRAZOLE 40 MG TAB PO SCH (09:48)
[2021-08-28] MEDS: ENOXAPARIN SOD 30 MG/0.3 ML SYRINGE SC SCH (09:48)
[2021-08-28] MEDS: amLODIPine BESYLATE 5 MG TAB PO SCH (09:48)
[2021-08-28] MEDS: LOSARTAN POTASSIUM 50 MG TAB PO SCH (09:48)
[2021-08-28] MEDS: MORPHINE SULFATE INJECTION 2 MG/ML SYRG IV PRN (09:50)
[2021-08-28] MEDS: DESITIN (ZINC OXIDE 40%) OINT 28G TUBE TOP SCH ×2 (10:00→20:44)
[2021-08-28] MEDS: CINACALCET HYDROCHLORIDE 30 MG TAB PO SCH (10:00)
[2021-08-28 13:00] VITALS: BP 157/80
[2021-08-28] MEDS ORDERED: CHOLECALCIFEROL (VITD3) 2,000 UNIT CAP/TAB PO ONE (14:30)
[2021-08-28 16:30] VITALS: BP 159/80
[2021-08-28] MEDS: OXYCODONE W/ ACETAMINOPHEN 5/325MG TABLET PO PRN (18:51)
[2021-08-28] MEDS: DOCUSATE SOD 100 MG CAP PO SCH (20:43)
[2021-08-28] MEDS: METOPROLOL TARTRATE 50 MG TAB PO SCH (20:44)
[2021-08-28] MEDS: ATORVASTATIN 20 MG TAB PO SCH (20:44)
[2021-08-28] MEDS: QUEtiapine FUMARATE 25 MG TAB PO SCH (20:44)
[2021-08-28] MEDS: ONDANSETRON HCL 4 MG/2 ML VIAL IV PRN (20:45)
[2021-08-28] MEDS ORDERED: EPOETIN ALFA-EPBX 10,000 UNIT/1ML VIAL SC ONE (21:00)
[2021-08-29] MEDS: OXYCODONE W/ ACETAMINOPHEN 5/325MG TABLET PO PRN ×3 (06:31→22:40)
[2021-08-29 06:56] LABS: Calcium 8.2 mg/dL (8.5-10.1)
[2021-08-29] MEDS: LEVOTHYROXINE SODIUM 100 MCG TAB PO SCH (07:00)
[2021-08-29 07:07] LABS: BUN/Creatinine Ratio 5.7
[2021-08-29] MEDS: SEVELAMER 800 MG TAB PO SCH ×3 (08:00→18:00)
[2021-08-29 09:00] VITALS: BP 160/92
[2021-08-29] MEDS: CINACALCET HYDROCHLORIDE 30 MG TAB PO SCH (10:00)
[2021-08-29] MEDS: CLOPIDOGREL BISULFATE 75 MG TAB PO SCH (10:00)
[2021-08-29] MEDS: ENOXAPARIN SOD 30 MG/0.3 ML SYRINGE SC SCH (10:00)
[2021-08-29] MEDS: NIFEdipine ER 30 MG TAB PO SCH (10:00)
[2021-08-29] MEDS: DESITIN (ZINC OXIDE 40%) OINT 28G TUBE TOP SCH (10:00)
[2021-08-29] MEDS: DOCUSATE SOD 100 MG CAP PO SCH ×2 (10:33→22:27)
[2021-08-29] MEDS: PANTOPRAZOLE 40 MG TAB PO SCH (10:34)
[2021-08-29] MEDS: LOSARTAN POTASSIUM 50 MG TAB PO SCH (10:35)
[2021-08-29] MEDS: CHOLECALCIFEROL (VITD3) 2,000 UNIT CAP/TAB PO SCH (10:36)
[2021-08-29] MEDS: METOPROLOL TARTRATE 50 MG TAB PO SCH ×2 (10:37→22:29)
[2021-08-29] MEDS: ASPirin 81 mg TAB PO SCH (10:38)
[2021-08-29] MEDS: ALPRAZolam 0.5 MG TAB PO PRN (11:15)
[2021-08-29 13:00] VITALS: BP 166/104
[2021-08-29 17:00] VITALS: BP 152/90
[2021-08-29] MEDS: LACTULOSE 20Gm/30ML SOLN PO PRN (20:39)
[2021-08-29 22:00] VITALS: BP 183/90
[2021-08-29] MEDS: ATORVASTATIN 20 MG TAB PO SCH (22:28)
[2021-08-29] MEDS: QUEtiapine FUMARATE 25 MG TAB PO SCH (22:29)
[2021-08-30 05:00] VITALS: BP 170/88
[2021-08-30] MEDS: LEVOTHYROXINE SODIUM 100 MCG TAB PO SCH (06:06)
[2021-08-30] MEDS: LABETALOL HCL 5 MG/ML 4ML SYRINGE IV PRN (06:06)
[2021-08-30] MEDS: DESITIN (ZINC OXIDE 40%) OINT 28G TUBE TOP SCH ×3 (06:55→22:11)
[2021-08-30 06:57] LABS: Basophils # (auto) 0 10 ^3/uL (0-0.2); Basophils % (auto) 0.5 % (0.0-2.0); Eosinophils # (auto) 0.1 10 ^3/uL (0-0.8); Hematocrit 27.8 % (36.0-46.0); Mean Corpuscular Hemoglobin 29.3 pg (28.0-32.0); Mean Corpuscular Hgb Conc. 32.2 g/dL (32.0-36.0); Mean Corpuscular Volume 90.9 fL (80.0-100.0); Neutrophils # (auto) 2.4 10 ^3/uL (1.6-8.6); Neutrophils % (auto) 40.9 % (37.0-80.0); Nucleated Red Blood Cells % 0.1 %; Red Blood Cells 3.06 10^6/uL (4.0-5.20); Red Cell Distribution Width 18.9 % (11.8-14.3); White Blood Cell 5.9 10^3/uL (4.4-10.8)
[2021-08-30 07:00] LABS: Lymphocytes # (auto) 2.4 10 ^3/uL (0.4-5.4); Lymphocytes % (auto) 39.5 % (10.0-50.0); Monocytes % (auto) 17.1 % (0.0-12.0)
[2021-08-30 07:45] LABS: Albumin 2.3 g/dL (3.4-5.0); BUN/Creatinine Ratio 7.1; Bilirubin, Total 0.3 mg/dL (0.2-1.0); Calcium 8.5 mg/dL (8.5-10.1); Total Protein 7.5 g/dL (6.4-8.2)
[2021-08-30] MEDS: SEVELAMER 800 MG TAB PO SCH ×3 (08:00→18:00)
[2021-08-30 08:22] LABS: Potassium 5.6 mmol/L (3.5-5.1)
[2021-08-30 09:00] VITALS: BP 149/79
[2021-08-30] MEDS: CHOLECALCIFEROL (VITD3) 2,000 UNIT CAP/TAB PO SCH (09:56)
[2021-08-30] MEDS: CLOPIDOGREL BISULFATE 75 MG TAB PO SCH (09:56)
[2021-08-30] MEDS: ASPirin 81 mg TAB PO SCH (09:57)
[2021-08-30] MEDS: PANTOPRAZOLE 40 MG TAB PO SCH (09:57)
[2021-08-30] MEDS: DOCUSATE SOD 100 MG CAP PO SCH ×2 (09:57→22:11)
[2021-08-30] MEDS: LOSARTAN POTASSIUM 50 MG TAB PO SCH (09:58)
[2021-08-30] MEDS: NIFEdipine ER 30 MG TAB PO SCH (09:59)
[2021-08-30] MEDS: METOPROLOL TARTRATE 50 MG TAB PO SCH ×2 (09:59→22:10)
[2021-08-30] MEDS: ENOXAPARIN SOD 30 MG/0.3 ML SYRINGE SC SCH (10:00)
[2021-08-30] MEDS: CINACALCET HYDROCHLORIDE 30 MG TAB PO SCH (10:00)
[2021-08-30 13:00] VITALS: BP 168/98
[2021-08-30] MEDS: OXYCODONE W/ ACETAMINOPHEN 5/325MG TABLET PO PRN ×2 (13:09→22:09)
[2021-08-30] MEDS: LACTULOSE 20Gm/30ML SOLN PO PRN (13:44)
[2021-08-30] MEDS: ALPRAZolam 0.5 MG TAB PO PRN (13:44)
[2021-08-30] MEDS ORDERED: SODIUM ZIRCONIUM CYCL 10 GM PAK PO ONE (14:00)
[2021-08-30 17:00] VITALS: BP 164/84
[2021-08-30] MEDS ORDERED: FLEET ENEMA(ADULT) 135 ML PR ONE (21:00)
[2021-08-30 22:00] VITALS: BP 156/91
[2021-08-30] MEDS: QUEtiapine FUMARATE 25 MG TAB PO SCH (22:10)
[2021-08-30] MEDS: ATORVASTATIN 20 MG TAB PO SCH (22:11)
[2021-08-31 05:00] VITALS: BP 183/100
[2021-08-31 05:24] LABS: Hematocrit 27.4 % (36.0-46.0); Hemoglobin 8.7 g/dL (12.2-16.2); Mean Corpuscular Hemoglobin 28.9 pg (28.0-32.0); Mean Corpuscular Volume 90.4 fL (80.0-100.0); Red Blood Cells 3.03 10^6/uL (4.0-5.20); Red Cell Distribution Width 19.2 % (11.8-14.3); White Blood Cell 5.8 10^3/uL (4.4-10.8)
[2021-08-31] MEDS: OXYCODONE W/ ACETAMINOPHEN 5/325MG TABLET PO PRN ×2 (05:33→21:02)
[2021-08-31 05:41] LABS: Band Neutrophils % (manual) 0; Basophils % (manual) 0 (0.0-2.0); Blast Cells 0; Metamyelocytes % 0; Myelocytes % 0; Promyelocytes % 0; Reactive Lymphocytes 0
[2021-08-31 06:02] LABS: Chloride 100 mmol/L (98-107); Sodium 134 mmol/L (136-145)
[2021-08-31 06:06] LABS: Alanine Aminotransferase < 6 U/L (13-56); Albumin 2.2 g/dL (3.4-5.0); Anion Gap 8 (5-15); Aspartate Aminotransferase 9 U/L (15-37); BUN/Creatinine Ratio 7.6; Blood Urea Nitrogen 48 mg/dL (7-18); Calcium 8.2 mg/dL (8.5-10.1); Carbon Dioxide 26 mmol/L (21-32); GFR African American 9 mL/min; GFR Non-African American 7 mL/min; Glucose 79 mg/dL (74-106)
[2021-08-31] MEDS: LEVOTHYROXINE SODIUM 100 MCG TAB PO SCH (06:07)
[2021-08-31 06:10] LABS: Alkaline Phosphatase 129 U/L (45-117); Bilirubin, Total 0.3 mg/dL (0.2-1.0); Total Protein 7.3 g/dL (6.4-8.2)
[2021-08-31 06:50] LABS: Potassium 6.6 mmol/L (3.5-5.1)
[2021-08-31] MEDS: LABETALOL HCL 5 MG/ML 4ML SYRINGE IV PRN ×2 (06:52→10:51)
[2021-08-31] MEDS ORDERED: CALCIUM CHL 100MG/ML 1,000 MG in D5W 5% 100 ML IV ONE (07:30)
[2021-08-31] MEDS ORDERED: InsuLIN REG 1unit/0.01ml Soln (100units/ml) SC ONE (07:30)
[2021-08-31] MEDS ORDERED: DEXTROSE (50%) 50ML SYRG IV ONE ×2 (07:30→16:30)
[2021-08-31] MEDS: SEVELAMER 800 MG TAB PO SCH ×3 (08:00→18:02)
[2021-08-31 09:00] VITALS: BP 155/91
[2021-08-31 09:24] LABS: Eosinophils % (manual) 3 (0-7); Lymphocytes % (manual) 32 (10.0-50.0); Monocytes % (manual) 17 (0-12)
[2021-08-31] MEDS: ALPRAZolam 0.5 MG TAB PO PRN (09:58)
[2021-08-31] MEDS: ASPirin 81 mg TAB PO SCH (09:58)
[2021-08-31] MEDS: DOCUSATE SOD 100 MG CAP PO SCH (09:58)
[2021-08-31] MEDS: PANTOPRAZOLE 40 MG TAB PO SCH (09:59)
[2021-08-31] MEDS: CHOLECALCIFEROL (VITD3) 2,000 UNIT CAP/TAB PO SCH (09:59)
[2021-08-31] MEDS: DESITIN (ZINC OXIDE 40%) OINT 28G TUBE TOP SCH (10:00)
[2021-08-31] MEDS: CINACALCET HYDROCHLORIDE 30 MG TAB PO SCH (10:00)
[2021-08-31] MEDS: METOPROLOL TARTRATE 50 MG TAB PO SCH (10:03)
[2021-08-31] MEDS: LOSARTAN POTASSIUM 50 MG TAB PO SCH (10:04)
[2021-08-31] MEDS: CLOPIDOGREL BISULFATE 75 MG TAB PO SCH (10:04)
[2021-08-31] MEDS: NIFEdipine ER 30 MG TAB PO SCH (10:04)
[2021-08-31] MEDS: ENOXAPARIN SOD 30 MG/0.3 ML SYRINGE SC SCH (10:04)
[2021-08-31] MEDS ORDERED: SODIUM CHL 0.9% 1000 ML BAG XX ONE (12:15)
[2021-08-31 13:00] VITALS: BP 143/83
[2021-08-31] MEDS ORDERED: OXYC325T10 PO (16:23)
[2021-08-31] MEDS ORDERED: CALCIUM GLUC 1,000mg/50ml-NS 50 ML IV ONE (16:30)
[2021-08-31] MEDS ORDERED: SODIUM BICARBONATE 8.4% INJ 50ML SYRINGE IV ONE (16:30)
[2021-08-31] MEDS ORDERED: InsuLIN REG 1unit/0.01ml Soln (100units/ml) IV ONE (16:30)
[2021-08-31] MEDS ORDERED: SODIUM ZIRCONIUM CYCL 10 GM PAK PO ONE (16:30)
[2021-08-31 17:00] VITALS: BP 163/93
[2021-08-31] MEDS: LACTULOSE 20Gm/30ML SOLN PO SCH (18:00)
[2021-08-31] MEDS: CARISOPRODOL 350 MG TAB PO PRN (18:04)
[2021-08-31] MEDS: hydrALAZINE HCL 25 MG TAB PO SCH (18:05)
[2021-08-31 20:00] VITALS: BP 163/80
[2021-08-31] MEDS ORDERED: EPOETIN ALFA-EPBX 10,000 UNIT/1ML VIAL SC ONE (21:00)
[2021-08-31] MEDS: SODIUM ZIRCONIUM CYCL 10 GM PAK PO SCH (22:00)
[2021-09-01] MEDS: DOCUSATE SOD 100 MG CAP PO SCH ×3 (04:21→22:28)
[2021-09-01] MEDS: CARVEDILOL 12.5 MG TAB PO SCH ×3 (04:24→22:30)
[2021-09-01] MEDS: traZODone HCL 50 MG TAB PO SCH ×2 (04:25→22:31)
[2021-09-01] MEDS: ATORVASTATIN 20 MG TAB PO SCH ×2 (04:25→22:32)
[2021-09-01] MEDS: DESITIN (ZINC OXIDE 40%) OINT 28G TUBE TOP SCH ×3 (04:26→22:33)
[2021-09-01] MEDS: QUEtiapine FUMARATE 25 MG TAB PO SCH ×2 (04:26→22:00)
[2021-09-01] MEDS: SODIUM ZIRCONIUM CYCL 10 GM PAK PO SCH ×4 (06:00→22:32)
[2021-09-01 06:46] LABS: BUN/Creatinine Ratio 6.5; Calcium 8.4 mg/dL (8.5-10.1)
[2021-09-01 06:53] LABS: Hematocrit 24.9 % (36.0-46.0); Hemoglobin 8.4 g/dL (12.2-16.2)
[2021-09-01] MEDS: hydrALAZINE HCL 25 MG TAB PO SCH ×4 (07:25→18:16)
[2021-09-01] MEDS: LEVOTHYROXINE SODIUM 100 MCG TAB PO SCH (07:26)
[2021-09-01 08:00] VITALS: BP 163/80
[2021-09-01 09:00] VITALS: BP 153/81
[2021-09-01] MEDS: ALPRAZolam 0.5 MG TAB PO PRN (09:44)
[2021-09-01] MEDS: CHOLECALCIFEROL (VITD3) 2,000 UNIT CAP/TAB PO SCH (09:44)
[2021-09-01] MEDS: ASPirin 81 mg TAB PO SCH (09:45)
[2021-09-01] MEDS: SEVELAMER 800 MG TAB PO SCH ×3 (09:45→18:17)
[2021-09-01] MEDS: ISOSORBIDE MONONITRATE ER 60 MG TAB PO SCH (09:46)
[2021-09-01] MEDS: PANTOPRAZOLE 40 MG TAB PO SCH (09:46)
[2021-09-01] MEDS: CLOPIDOGREL BISULFATE 75 MG TAB PO SCH (09:47)
[2021-09-01] MEDS: ENOXAPARIN SOD 30 MG/0.3 ML SYRINGE SC SCH (09:47)
[2021-09-01] MEDS: OXYCODONE W/ ACETAMINOPHEN 5/325MG TABLET PO PRN ×3 (09:51→18:19)
[2021-09-01] MEDS: NIFEdipine ER 30 MG TAB PO SCH (10:00)
[2021-09-01] MEDS: CINACALCET HYDROCHLORIDE 30 MG TAB PO SCH (10:00)
[2021-09-01] MEDS: LACTULOSE 20Gm/30ML SOLN PO SCH (10:00)
[2021-09-01] MEDS ORDERED: CHOL20007 PO (12:05)
[2021-09-01] MEDS ORDERED: NIFE90TA49 PO (12:05)
[2021-09-01] MEDS ORDERED: ISOS1TAB28 PO (12:05)
[2021-09-01] MEDS ORDERED: HYDR50TA15 PO (12:05)
[2021-09-01] MEDS: CARISOPRODOL 350 MG TAB PO PRN (12:54)
[2021-09-01 13:00] VITALS: BP 108/53
[2021-09-01 17:18] VITALS: BP 117/58
[2021-09-01 20:00] VITALS: BP 126/75
[2021-09-02 06:26] LABS: Hemoglobin 7.6 g/dL (12.2-16.2)
[2021-09-02 06:30] LABS: Hematocrit 22.5 % (36.0-46.0)
[2021-09-02] MEDS: hydrALAZINE HCL 25 MG TAB PO SCH ×4 (06:37→17:45)
[2021-09-02] MEDS: SODIUM ZIRCONIUM CYCL 10 GM PAK PO SCH ×3 (06:38→21:16)
[2021-09-02] MEDS: LEVOTHYROXINE SODIUM 100 MCG TAB PO SCH (06:39)
[2021-09-02] MEDS ORDERED: SODIUM CHL 0.9% 1000 ML BAG XX ONE (07:00)
[2021-09-02 09:00] VITALS: BP 124/69
[2021-09-02] MEDS ORDERED: HYDR50TA15 PO (09:51)
[2021-09-02] MEDS: LACTULOSE 20Gm/30ML SOLN PO SCH (10:00)
[2021-09-02] MEDS: DOCUSATE SOD 100 MG CAP PO SCH ×2 (10:22→21:00)
[2021-09-02] MEDS: ASPirin 81 mg TAB PO SCH (10:22)
[2021-09-02] MEDS: SEVELAMER 800 MG TAB PO SCH ×2 (10:22→13:58)
[2021-09-02] MEDS: CARVEDILOL 12.5 MG TAB PO SCH ×2 (10:23→23:47)
[2021-09-02] MEDS: ISOSORBIDE MONONITRATE ER 60 MG TAB PO SCH (10:23)
[2021-09-02] MEDS: CINACALCET HYDROCHLORIDE 30 MG TAB PO SCH (10:24)
[2021-09-02] MEDS: CHOLECALCIFEROL (VITD3) 2,000 UNIT CAP/TAB PO SCH (10:24)
[2021-09-02] MEDS: CLOPIDOGREL BISULFATE 75 MG TAB PO SCH (10:24)
[2021-09-02] MEDS: PANTOPRAZOLE 40 MG TAB PO SCH (10:24)
[2021-09-02] MEDS: NIFEdipine ER 30 MG TAB PO SCH (10:24)
[2021-09-02] MEDS: ENOXAPARIN SOD 30 MG/0.3 ML SYRINGE SC SCH (10:25)
[2021-09-02] MEDS: DESITIN (ZINC OXIDE 40%) OINT 28G TUBE TOP SCH ×2 (10:25→21:26)
[2021-09-02] MEDS: OXYCODONE W/ ACETAMINOPHEN 5/325MG TABLET PO PRN ×2 (10:30→14:47)
[2021-09-02] MEDS ORDERED: FLEET ENEMA(ADULT) 135 ML PR ONE (10:45)
[2021-09-02 13:00] VITALS: BP 103/64
[2021-09-02] MEDS: ONDANSETRON HCL 4 MG/2 ML VIAL IV PRN (14:20)
[2021-09-02 17:00] VITALS: BP 92/53
[2021-09-02] MEDS ORDERED: EPOETIN ALFA-EPBX 10,000 UNIT/1ML VIAL SC ONE (21:00)
[2021-09-02] MEDS: ATORVASTATIN 20 MG TAB PO SCH (21:24)
[2021-09-02] MEDS: traZODone HCL 50 MG TAB PO SCH (21:25)
[2021-09-02] MEDS: QUEtiapine FUMARATE 25 MG TAB PO SCH (21:25)
[2021-09-02 22:00] VITALS: BP 103/61
[2021-09-03] MEDS: HYDROcodone-ACET 5/325MG TAB PO PRN ×2 (02:23→10:24)
[2021-09-03 05:00] VITALS: BP 103/65
[2021-09-03] MEDS: hydrALAZINE HCL 25 MG TAB PO SCH ×2 (05:57)
[2021-09-03] MEDS: SODIUM ZIRCONIUM CYCL 10 GM PAK PO SCH (05:58)
[2021-09-03 09:00] VITALS: BP 90/49
[2021-09-03] MEDS: ENOXAPARIN SOD 30 MG/0.3 ML SYRINGE SC SCH (10:00)
[2021-09-03] MEDS: CINACALCET HYDROCHLORIDE 30 MG TAB PO SCH (10:00)
[2021-09-03] MEDS: DESITIN (ZINC OXIDE 40%) OINT 28G TUBE TOP SCH (10:00)
[2021-09-03] MEDS: ISOSORBIDE MONONITRATE ER 60 MG TAB PO SCH (10:00)
[2021-09-03] MEDS: PANTOPRAZOLE 40 MG TAB PO SCH (10:00)
[2021-09-03] MEDS: NIFEdipine ER 30 MG TAB PO SCH (10:00)
[2021-09-03] MEDS: CLOPIDOGREL BISULFATE 75 MG TAB PO SCH (10:00)
[2021-09-03] MEDS: CHOLECALCIFEROL (VITD3) 2,000 UNIT CAP/TAB PO SCH (10:00)
[2021-09-03] MEDS: LACTULOSE 20Gm/30ML SOLN PO SCH (10:00)
[2021-09-03] MEDS: CARVEDILOL 12.5 MG TAB PO SCH (10:00)
[2021-09-03] MEDS: ASPirin 81 mg TAB PO SCH (10:00)
[2021-09-03] MEDS: DOCUSATE SOD 100 MG CAP PO SCH (10:09)
== END 2021-09-03 13:07 | disposition home health service (06) | DRG 280 ==
LOC: EDBD 17:27 → ER 17:33 → TELE 21:39 → TELE-WESTW 23:51
PROVIDERS: ADMIT Internal Medicine; ATTEND Internal Medicine
DX: I13.2 Hypertensive heart and chronic kidney disease with heart failure and with stage 5 chronic kidney disease, or end stage renal disease (principal); I21.A1 Myocardial infarction type 2; I50.33 Acute on chronic diastolic (congestive) heart failure; N18.6 End stage renal disease; L89.153 Pressure ulcer of sacral region, stage 3; G82.20 Paraplegia, unspecified; E87.6 Hypokalemia; D63.1 Anemia in chronic kidney disease; E03.9 Hypothyroidism, unspecified; Z20.822 Contact with and (suspected) exposure to COVID-19; E55.9 Vitamin D deficiency, unspecified; E78.5 Hyperlipidemia, unspecified; E87.5 Hyperkalemia; G89.4 Chronic pain syndrome; I16.0 Hypertensive urgency; K59.00 Constipation, unspecified; Z80.3 Family history of malignant neoplasm of breast; Z99.2 Dependence on renal dialysis; Z82.49 Family history of ischemic heart disease and other diseases of the circulatory system; Z74.01 Bed confinement status; Z90.49 Acquired absence of other specified parts of digestive tract
CPT/HCPCS: 36415; 71045; 80048; 80053; 80061; 82306; 82962; 83735; 83880; 84132; 84443; 84484; 85007; 85014; 85018; 85025; 85027; 85610; 85730; 87040; 87081; 87426; 90935; 93005; 96374; 96375; 97110; 97116; 97163; 97530; G0378; J1642; J1815; J2405; J3490; J7060

== ENCOUNTER 2021-11-16 10:58 | Emergency (ER) | payer MEDICARE, MEDICAID ==
[~2021-11-16] VITALS: Ht 162.6 cm; Wt 67.6 kg
[~2021-11-16 10:58] MED LIST changes: -GAB100C PO; -HYDR-4833 PO; +HYDR50TA15 PO; +ISOS1TAB28 PO; -LISI20TA28 PO; -LOSA-39 PO; -NIFE1TAB36 PO; +NIFE90TA49 PO; +OXYC325T10 PO; -TRAZ-220 PO
[2021-11-16 11:56] LABS: Basophils # (auto) 0 10 ^3/uL (0-0.2); Basophils % (auto) 0.2 % (0.0-2.0); Eosinophils # (auto) 0 10 ^3/uL (0-0.8); Eosinophils % (auto) 0.4 % (0.0-7.0); Hemoglobin 10.2 g/dL (12.2-16.2); Lymphocytes # (auto) 1.7 10 ^3/uL (0.4-5.4); Lymphocytes % (auto) 23.4 % (10.0-50.0); Mean Corpuscular Hemoglobin 27.1 pg (28.0-32.0); Mean Corpuscular Volume 87.5 fL (80.0-100.0); Monocytes # (auto) 1.2 10 ^3/uL (0-1.3); Neutrophils # (auto) 4.5 10 ^3/uL (1.6-8.6); Red Blood Cells 3.77 10^6/uL (4.0-5.20); Red Cell Distribution Width 19.1 % (11.8-14.3); White Blood Cell 7.4 10^3/uL (4.4-10.8)
[2021-11-16 12:29] LABS: Alanine Aminotransferase < 6 U/L (13-56); Anion Gap 13 (5-15); Aspartate Aminotransferase 13 U/L (15-37); BUN/Creatinine Ratio 6.9; Blood Urea Nitrogen 44 mg/dL (7-18); Calcium 8.1 mg/dL (8.5-10.1); Carbon Dioxide 22 mmol/L (21-32); Chloride 101 mmol/L (98-107); GFR African American 8 mL/min; GFR Non-African American 7 mL/min; Glucose 79 mg/dL (74-106); Magnesium 2.2 mg/dL (1.6-2.6); Sodium 136 mmol/L (136-145)
[2021-11-16 12:31] LABS: Alkaline Phosphatase 148 U/L (45-117); Bilirubin, Total 0.3 mg/dL (0.2-1.0); Total Protein 8.6 g/dL (6.4-8.2)
[2021-11-16] MEDS ORDERED: hydrALAZINE HCL 20 MG/ML VL IV ONE (12:45)
[2021-11-16] MEDS ORDERED: SODIUM BICARBONATE 8.4 % INJ 50ML VIAL IV ONE (12:45)
[2021-11-16] MEDS ORDERED: InsuLIN REG 1unit/0.01ml Soln (100units/ml) IV ONE (12:45)
[2021-11-16] MEDS ORDERED: CALCIUM GLUC 1,000mg/50ml-NS 50 ML IV ONE (12:45)
[2021-11-16] MEDS ORDERED: DEXTROSE (50%) 50ML SYRG IV ONE (12:45)
[2021-11-16 13:13] LABS: INR 1.17 (0.9-1.15)
[2021-11-16] MEDS ORDERED: ONDANSETRON HCL 4 MG/2 ML VIAL ONE (13:44)
[2021-11-16] MEDS ORDERED: MORPHINE SULFATE 4 MG/ML SYR/VIAL ONE (13:44)
[2021-11-16 13:45] VITALS: BP 133/85
[2021-11-16] MEDS ORDERED: MORPHINE SULFATE 4 MG/ML SYR/VIAL IV ONE (13:45)
[2021-11-16] MEDS ORDERED: ONDANSETRON HCL 4 MG/2 ML VIAL IV ONE (13:45)
== END 2021-11-16 13:45 | disposition short-term general hospital (02) ==
LOC: ER 10:58 → EDBD 10:58 → ER 13:45
DX: S06.6X0A Traumatic subarachnoid hemorrhage without loss of consciousness, initial encounter (principal); S12.000A Unspecified displaced fracture of first cervical vertebra, initial encounter for closed fracture; E87.5 Hyperkalemia; I13.2 Hypertensive heart and chronic kidney disease with heart failure and with stage 5 chronic kidney disease, or end stage renal disease; N18.6 End stage renal disease; I50.9 Heart failure, unspecified; E78.5 Hyperlipidemia, unspecified; Z20.822 Contact with and (suspected) exposure to COVID-19; X58.XXXA Exposure to other specified factors, initial encounter; Y93.89 Activity, other specified; Y92.89 Other specified places as the place of occurrence of the external cause; Y99.8 Other external cause status
CPT/HCPCS: 36415; 70450; 71250; 72125; 72131; 80053; 82962; 83735; 85025; 85610; 85730; 87426; 96365; 96375; 99291; J0360; J0610; J1815; J2270; J2405; J7042

== ENCOUNTER 2022-08-20 22:50 | Inpatient (IN) | payer MEDICARE, MEDICAID ==
[~2022-08-20] VITALS: Ht 162.6 cm; Wt 57.8 kg
[2022-08-20 23:42] LABS: Hematocrit 29.8 % (36.0-46.0); Hemoglobin 9.5 g/dL (12.2-16.2); Mean Corpuscular Hemoglobin 30.5 pg (28.0-32.0); Mean Corpuscular Hgb Conc. 31.8 g/dL (32.0-36.0); White Blood Cell 4.5 10^3/uL (4.4-10.8)
[2022-08-20 23:44] LABS: Red Cell Distribution Width 20.1 % (11.8-14.3)
[2022-08-20 23:56] LABS: Albumin 2.4 g/dL (3.4-5.0); Anion Gap 8 (5-15); Blood Urea Nitrogen 40 mg/dL (7-18); Calcium 7.8 mg/dL (8.5-10.1); Carbon Dioxide 26 mmol/L (21-32); Chloride 105 mmol/L (98-107); Glucose 94 mg/dL (74-106); Magnesium 2.4 mg/dL (1.6-2.6); Sodium 139 mmol/L (136-145)
[2022-08-20 23:58] LABS: INR 1.08 (0.9-1.15); Partial Thromboplastin Time 39.3 sec (24.6-33.4)
[2022-08-21] LABS: Alanine Aminotransferase < 6 U/L (13-56); Alkaline Phosphatase 96 U/L (45-117); Aspartate Aminotransferase 7 U/L (15-37); BUN/Creatinine Ratio 9.9; Bilirubin, Total 0.2 mg/dL (0.2-1.0); GFR African American 14 mL/min; GFR Non-African American 12 mL/min; Total Protein 7.3 g/dL (6.4-8.2)
[2022-08-21 00:48] LABS: Band Neutrophils % (manual) 0; Basophils % (manual) 0 (0.0-2.0); Blast Cells 0; Eosinophils % (manual) 0 (0-7); Metamyelocytes % 0; Myelocytes % 0; Promyelocytes % 0; Reactive Lymphocytes 0
[2022-08-21 00:49] LABS: Lymphocytes % (manual) 26 (10.0-50.0); Monocytes % (manual) 17 (0-12)
[2022-08-21] MEDS ORDERED: ONDANSETRON HCL 4 MG/2 ML VIAL IV ONE (02:15)
[2022-08-21] MEDS ORDERED: MORPHINE SULFATE INJ 2 MG/ml SYRG IV ONE (02:15)
[2022-08-21] MEDS ORDERED: ASPirin 325 MG TAB PO ONE (03:15)
[2022-08-21] MEDS ORDERED: ONDANSETRON HCL 4 MG/2 ML VIAL IV PRN (03:30)
[2022-08-21] MEDS ORDERED: HYDROcodone-ACET 5/325MG TAB PO PRN (03:30)
[2022-08-21] MEDS ORDERED: MORPHINE SULFATE INJ 2 MG/ml SYRG IV PRN (05:00)
[2022-08-21] MEDS ORDERED: NITROGLYCERIN 0.4 MG SL TAB SL PRN (05:00)
[2022-08-21 06:00] LABS: Basophils # (auto) 0 10 ^3/uL (0-0.2); Basophils % (auto) 0.6 % (0.0-2.0); Eosinophils # (auto) 0 10 ^3/uL (0-0.8); Eosinophils % (auto) 0.9 % (0.0-7.0); Hematocrit 28.8 % (36.0-46.0); Hemoglobin 9.2 g/dL (12.2-16.2); Lymphocytes # (auto) 1.6 10 ^3/uL (0.4-5.4); Lymphocytes % (auto) 35.6 % (10.0-50.0); Mean Corpuscular Hemoglobin 30.6 pg (28.0-32.0); Mean Corpuscular Hgb Conc. 31.9 g/dL (32.0-36.0); Mean Corpuscular Volume 95.9 fL (80.0-100.0); Monocytes # (auto) 1.1 10 ^3/uL (0-1.3); Neutrophils # (auto) 1.7 10 ^3/uL (1.6-8.6); Neutrophils % (auto) 37.5 % (37.0-80.0); Red Blood Cells 3.01 10^6/uL (4.0-5.20); White Blood Cell 4.5 10^3/uL (4.4-10.8)
[2022-08-21] MEDS: SODIUM CHLOR 0.9% PF (SALINE LOCK) 10ML VIAL/SYR IV SCH ×3 (06:11→21:55)
[2022-08-21 06:17] LABS: Monocytes % (auto) 25.4 % (0.0-12.0); Red Cell Distribution Width 20.1 % (11.8-14.3)
[2022-08-21 06:20] LABS: Albumin 2.4 g/dL (3.4-5.0); Anion Gap 7 (5-15); Blood Urea Nitrogen 41 mg/dL (7-18); Calcium 8.1 mg/dL (8.5-10.1); Carbon Dioxide 27 mmol/L (21-32); Chloride 104 mmol/L (98-107); Glucose 82 mg/dL (74-106); Potassium 4.4 mmol/L (3.5-5.1); Sodium 138 mmol/L (136-145)
[2022-08-21 06:24] LABS: Alanine Aminotransferase < 6 U/L (13-56); Alkaline Phosphatase 89 U/L (45-117); Aspartate Aminotransferase 7 U/L (15-37); BUN/Creatinine Ratio 9.7; Bilirubin, Total 0.5 mg/dL (0.2-1.0); GFR African American 13 mL/min; GFR Non-African American 11 mL/min; Total Protein 7.4 g/dL (6.4-8.2)
[2022-08-21] MEDS: LEVOTHYROXINE SODIUM 50 MCG TAB PO SCH (07:07)
[2022-08-21] MEDS: SEVELAMER 800 MG TAB PO SCH ×3 (08:33→18:13)
[2022-08-21] MEDS: B-COMPLEX W/ C & FOLIC ACID(NEPHROVITE TAB) PO SCH (10:45)
[2022-08-21] MEDS: CLOPIDOGREL BISULFATE 75 MG TAB PO SCH (10:45)
[2022-08-21] MEDS: ASPirin 81 mg TAB PO SCH (10:45)
[2022-08-21] MEDS: OXYCODONE W/ ACETAMINOPHEN 5/325MG TABLET PO PRN ×2 (10:46→19:36)
[2022-08-21] MEDS: FAMOTIDINE (10MG/ML) 2ML VL IV SCH (10:46)
[2022-08-21] MEDS: HYDROmorphone HCL 2 MG/ML VL/or syr IV PRN ×2 (16:06→20:43)
[2022-08-21] MEDS: DOCUSATE SOD 100 MG CAP PO PRN (19:36)
[2022-08-21] MEDS: ATORVASTATIN 20 MG TAB PO SCH (21:55)
[2022-08-22] VITALS (7 sets, daily range): BP systolic 124–164; BP diastolic 73–88
[2022-08-22] MEDS: HYDROmorphone HCL 2 MG/ML VL/or syr IV PRN ×5 (00:53→23:53)
[2022-08-22] MEDS: OXYCODONE W/ ACETAMINOPHEN 5/325MG TABLET PO PRN ×2 (03:13→13:06)
[2022-08-22 05:22] LABS: Hematocrit 28.7 % (36.0-46.0); Hemoglobin 9.3 g/dL (12.2-16.2); Mean Corpuscular Hemoglobin 31.2 pg (28.0-32.0); Mean Corpuscular Hgb Conc. 32.5 g/dL (32.0-36.0); Red Blood Cells 2.99 10^6/uL (4.0-5.20); Red Cell Distribution Width 19.7 % (11.8-14.3); White Blood Cell 4.3 10^3/uL (4.4-10.8)
[2022-08-22 05:25] LABS: Basophils % (manual) 0 (0.0-2.0); Blast Cells 0; Metamyelocytes % 0; Myelocytes % 0; Promyelocytes % 0; Reactive Lymphocytes 0
[2022-08-22] MEDS: LEVOTHYROXINE SODIUM 50 MCG TAB PO SCH (05:50)
[2022-08-22] MEDS: DOCUSATE SOD 100 MG CAP PO PRN ×2 (05:50→13:05)
[2022-08-22] MEDS: SODIUM CHLOR 0.9% PF (SALINE LOCK) 10ML VIAL/SYR IV SCH ×3 (05:52→23:42)
[2022-08-22 05:58] LABS: Albumin 2.4 g/dL (3.4-5.0); Anion Gap 10 (5-15); Blood Urea Nitrogen 56 mg/dL (7-18); Calcium 7.7 mg/dL (8.5-10.1); Carbon Dioxide 26 mmol/L (21-32); Chloride 102 mmol/L (98-107); Glucose 76 mg/dL (74-106); Sodium 138 mmol/L (136-145)
[2022-08-22 06:03] LABS: Alanine Aminotransferase < 6 U/L (13-56); Alkaline Phosphatase 84 U/L (45-117); Aspartate Aminotransferase 9 U/L (15-37); BUN/Creatinine Ratio 9.8; Bilirubin, Total 0.3 mg/dL (0.2-1.0); GFR African American 10 mL/min; GFR Non-African American 8 mL/min; Total Protein 6.7 g/dL (6.4-8.2)
[2022-08-22] MEDS: hydrALAZINE HCL 20 MG/ML VL IV PRN ×2 (07:13→12:25)
[2022-08-22 07:33] LABS: Band Neutrophils % (manual) 2; Eosinophils % (manual) 4 (0-7); Lymphocytes % (manual) 26 (10.0-50.0); Monocytes % (manual) 23 (0-12)
[2022-08-22] MEDS: SODIUM ZIRCONIUM CYCL 10 GM PAK PO SCH ×3 (07:35→23:39)
[2022-08-22] MEDS: CLOPIDOGREL BISULFATE 75 MG TAB PO SCH (10:39)
[2022-08-22] MEDS: B-COMPLEX W/ C & FOLIC ACID(NEPHROVITE TAB) PO SCH (10:39)
[2022-08-22] MEDS: FAMOTIDINE (10MG/ML) 2ML VL IV SCH (10:39)
[2022-08-22] MEDS: ASPirin 81 mg TAB PO SCH (10:39)
[2022-08-22] MEDS: SEVELAMER 800 MG TAB PO SCH ×3 (10:39→18:40)
[2022-08-22] MEDS ORDERED: BISACODYL 5 MG EC TAB PO ONE ×2 (14:15→14:45)
[2022-08-22] MEDS ORDERED: BISACODYL 10 MG RECT SUPP PR ONE (14:15)
[2022-08-22] MEDS ORDERED: POLYETHYLENE GLYCOL 17 GM PWDR PO ONE (14:15)
[2022-08-22] MEDS: LABETALOL HCL 200 MG TAB PO SCH ×2 (16:09→23:41)
[2022-08-22] MEDS: ATORVASTATIN 20 MG TAB PO SCH (23:40)
[2022-08-23] MEDS: HYDROmorphone HCL 2 MG/ML VL/or syr IV PRN ×5 (04:43→22:14)
[2022-08-23 05:00] VITALS: BP 145/83
[2022-08-23] MEDS: SODIUM CHLOR 0.9% PF (SALINE LOCK) 10ML VIAL/SYR IV SCH ×3 (05:38→22:08)
[2022-08-23] MEDS: SODIUM ZIRCONIUM CYCL 10 GM PAK PO SCH ×3 (06:16→22:12)
[2022-08-23] MEDS: LEVOTHYROXINE SODIUM 50 MCG TAB PO SCH (06:16)
[2022-08-23] MEDS: SEVELAMER 800 MG TAB PO SCH ×4 (08:00→18:27)
[2022-08-23] MEDS ORDERED: SODIUM CHL 0.9% 1000 ML BAG XX ONE (08:15)
[2022-08-23 08:30] VITALS: BP 163/90
[2022-08-23] MEDS: LABETALOL HCL 200 MG TAB PO SCH ×2 (10:00→22:12)
[2022-08-23] MEDS: FAMOTIDINE (10MG/ML) 2ML VL IV SCH (10:16)
[2022-08-23] MEDS: B-COMPLEX W/ C & FOLIC ACID(NEPHROVITE TAB) PO SCH (10:16)
[2022-08-23] MEDS: CLOPIDOGREL BISULFATE 75 MG TAB PO SCH (10:17)
[2022-08-23] MEDS: ASPirin 81 mg TAB PO SCH (10:17)
[2022-08-23] MEDS: OXYCODONE W/ ACETAMINOPHEN 5/325MG TABLET PO PRN (10:53)
[2022-08-23 13:00] VITALS: BP 173/87
[2022-08-23 16:52] VITALS: BP 161/86
[2022-08-23 20:00] VITALS: BP 160/86
[2022-08-23] MEDS ORDERED: EPOETIN ALFA-EPBX 10,000 UNIT/1ML VIAL SC ONE (21:00)
[2022-08-23 22:00] VITALS: BP 160/86
[2022-08-23] MEDS: ATORVASTATIN 20 MG TAB PO SCH (22:09)
[2022-08-24] VITALS (7 sets, daily range): BP systolic 149–154; BP diastolic 83–90
[2022-08-24] MEDS: OXYCODONE W/ ACETAMINOPHEN 5/325MG TABLET PO PRN (01:30)
[2022-08-24] MEDS: HYDROmorphone HCL 2 MG/ML VL/or syr IV PRN ×2 (04:46→11:03)
[2022-08-24] MEDS: SODIUM CHLOR 0.9% PF (SALINE LOCK) 10ML VIAL/SYR IV SCH ×2 (05:39→13:47)
[2022-08-24] MEDS: SODIUM ZIRCONIUM CYCL 10 GM PAK PO SCH (05:43)
[2022-08-24] MEDS: LEVOTHYROXINE SODIUM 50 MCG TAB PO SCH (06:11)
[2022-08-24 06:18] LABS: Hemoglobin 8.2 g/dL (12.2-16.2); Mean Corpuscular Hemoglobin 31.3 pg (28.0-32.0); Mean Corpuscular Volume 94.9 fL (80.0-100.0); Red Blood Cells 2.64 10^6/uL (4.0-5.20); Red Cell Distribution Width 18.8 % (11.8-14.3); White Blood Cell 4.3 10^3/uL (4.4-10.8)
[2022-08-24 06:23] LABS: BUN/Creatinine Ratio 9.4; Calcium 7.9 mg/dL (8.5-10.1); Potassium 4.6 mmol/L (3.5-5.1)
[2022-08-24 06:31] LABS: Basophils % (manual) 0 (0.0-2.0); Metamyelocytes % 0; Myelocytes % 0; Promyelocytes % 0
[2022-08-24] MEDS: SEVELAMER 800 MG TAB PO SCH ×3 (08:00→18:00)
[2022-08-24 08:18] LABS: Band Neutrophils % (manual) 2; Blast Cells 1; Eosinophils % (manual) 3 (0-7); Lymphocytes % (manual) 20 (10.0-50.0); Monocytes % (manual) 21 (0-12); Reactive Lymphocytes 8
[2022-08-24] MEDS: FAMOTIDINE (10MG/ML) 2ML VL IV SCH (10:59)
[2022-08-24] MEDS: ASPirin 81 mg TAB PO SCH (10:59)
[2022-08-24] MEDS: LABETALOL HCL 200 MG TAB PO SCH (11:02)
[2022-08-24] MEDS: B-COMPLEX W/ C & FOLIC ACID(NEPHROVITE TAB) PO SCH (11:02)
[2022-08-24] MEDS: CLOPIDOGREL BISULFATE 75 MG TAB PO SCH (11:02)
[2022-08-25] MEDS ORDERED: SODIUM CHL 0.9% 1000 ML BAG XX ONE (07:00)
[2022-08-25] MEDS ORDERED: EPOETIN ALFA-EPBX 10,000 UNIT/1ML VIAL SC ONE (21:00)
== END 2022-08-24 21:00 | disposition home or self-care (01) | DRG 280 ==
LOC: EDUNIT# 22:50 → EDBD 22:50 → ER 22:50 → TELE 08-21 04:58 → TELE-EAST 08-21 22:08
PROVIDERS: ADMIT Nurse Practitioner Family; ATTEND Internal Medicine
PROC: 5A1D70Z Performance of Urinary Filtration, Intermittent, Less than 6 Hours Per Day (ICD-10-PCS; principal; 2022-08-23)
DX: I13.2 Hypertensive heart and chronic kidney disease with heart failure and with stage 5 chronic kidney disease, or end stage renal disease (principal); E43 Unspecified severe protein-calorie malnutrition; I21.A1 Myocardial infarction type 2; L89.154 Pressure ulcer of sacral region, stage 4; I50.31 Acute diastolic (congestive) heart failure; J96.21 Acute and chronic respiratory failure with hypoxia; N18.6 End stage renal disease; G82.20 Paraplegia, unspecified; E03.9 Hypothyroidism, unspecified; Z20.822 Contact with and (suspected) exposure to COVID-19; D64.9 Anemia, unspecified; E11.22 Type 2 diabetes mellitus with diabetic chronic kidney disease; E11.51 Type 2 diabetes mellitus with diabetic peripheral angiopathy without gangrene; K59.00 Constipation, unspecified; E88.09 Other disorders of plasma-protein metabolism, not elsewhere classified; E78.00 Pure hypercholesterolemia, unspecified; I25.10 Atherosclerotic heart disease of native coronary artery without angina pectoris; Z99.2 Dependence on renal dialysis; Z88.8 Allergy status to other drugs, medicaments and biological substances; Z74.01 Bed confinement status; Z82.49 Family history of ischemic heart disease and other diseases of the circulatory system; Z80.3 Family history of malignant neoplasm of breast; Z68.24 Body mass index [BMI] 24.0-24.9, adult
CPT/HCPCS: 36415; 71275; 80048; 80053; 83605; 83735; 83880; 84443; 84484; 85007; 85025; 85027; 85379; 85610; 85730; 87040; 87081; 87426; 87804; 90935; 93005; 93306; 93970; 96374; 96375; G0378; J1642; J2405; J3490

== ENCOUNTER 2022-11-05 17:37 | Emergency (ER) | payer OTHER, MEDICAID ==
[~2022-11-05] VITALS: Ht 162.6 cm; Wt 63.0 kg
[2022-11-05 18:14] LABS: Basophils # (auto) 0.1 10 ^3/uL (0-0.2); Eosinophils # (auto) 0.1 10 ^3/uL (0-0.8); Eosinophils % (auto) 0.8 % (0.0-7.0); Hematocrit 27.7 % (36.0-46.0); Lymphocytes # (auto) 1.3 10 ^3/uL (0.4-5.4); Lymphocytes % (auto) 18.1 % (10.0-50.0); Mean Corpuscular Hemoglobin 31.1 pg (28.0-32.0); Mean Corpuscular Hgb Conc. 32.7 g/dL (32.0-36.0); Mean Corpuscular Volume 95.3 fL (80.0-100.0); Monocytes # (auto) 1.2 10 ^3/uL (0-1.3); Monocytes % (auto) 17.3 % (0.0-12.0); Neutrophils # (auto) 4.4 10 ^3/uL (1.6-8.6); Neutrophils % (auto) 62.8 % (37.0-80.0); Red Cell Distribution Width 17.2 % (11.8-14.3)
[2022-11-05 18:30] LABS: Albumin 2.1 g/dL (3.4-5.0); Calcium 8.7 mg/dL (8.5-10.1); INR 1.19 (0.9-1.15); Magnesium 1.9 mg/dL (1.6-2.6); Partial Thromboplastin Time 32.9 sec (24.6-33.4); Potassium 3.3 mmol/L (3.5-5.1)
[2022-11-05 18:33] LABS: BUN/Creatinine Ratio 8.3 (10.0-20.0); Bilirubin, Total 0.3 mg/dL (0.2-1.0); Total Protein 8.7 g/dL (6.4-8.2)
[2022-11-05] MEDS ORDERED: NITROGLYCERIN 0.4 MG SL TAB SL ONE (20:15)
[2022-11-05] MEDS ORDERED: OXYCODONE W/ ACETAMINOPHEN 5/325MG TABLET PO ONE (21:30)
[2022-11-06] MEDS: ONDANSETRON HCL 4 MG/2 ML VIAL IV PRN ×3 (01:04→13:25)
[2022-11-06] MEDS: MORPHINE SULFATE INJ 2 MG/ml SYRG IV PRN ×3 (01:05→13:25)
[2022-11-06 14:50] VITALS: BP 135/71
== END 2022-11-06 16:05 | disposition home or self-care (01) ==
LOC: EDBD 17:37 → ER 17:37 → EDUNIT# 17:37 → ER 11-06 16:05
DX: R07.89 Other chest pain (principal); R77.8 Other specified abnormalities of plasma proteins; I10 Essential (primary) hypertension; J44.9 Chronic obstructive pulmonary disease, unspecified; E78.5 Hyperlipidemia, unspecified; I13.2 Hypertensive heart and chronic kidney disease with heart failure and with stage 5 chronic kidney disease, or end stage renal disease; N18.6 End stage renal disease; I50.89 Other heart failure; Z99.2 Dependence on renal dialysis; Z98.890 Other specified postprocedural states; Z88.8 Allergy status to other drugs, medicaments and biological substances; Z79.899 Other long term (current) drug therapy; Z90.89 Acquired absence of other organs
CPT/HCPCS: 36415; 71045; 71250; 80053; 83735; 84484; 85025; 85610; 85730; 93005; 96374; 96375; 99285; J2270; J2405

== ENCOUNTER 2023-05-29 19:34 | Inpatient (IN) | payer MEDICARE, MEDICAID ==
[~2023-05-29] VITALS: Ht 162.6 cm; Wt 66.1 kg
[~2023-05-29 19:34] MED LIST changes: +HYDR-4297 PO; -HYDR50TA15 PO; -NIFE90TA49 PO; +NIFE90TA75 PO
[2023-05-29] MEDS ORDERED: IPRATROPIUM BROM 0.5 MG/2.5ML INH SOL NEB ONE (20:00)
[2023-05-29] MEDS ORDERED: ALBUTEROL MEDNEB 2.5 mg/3ml NEB NEB ONE (20:00)
[2023-05-29 20:05] VITALS: PULSE 140; RESP 12; O2SAT 93
[2023-05-29] MEDS ORDERED: ONDANSETRON HCL 4 MG/2 ML VIAL IV ONE (20:30)
[2023-05-29] MEDS ORDERED: MORPHINE SULFATE 4 MG/ML SYR/VIAL IV ONE (20:30)
[2023-05-29 20:41] LABS: Basophils # (auto) 0 10 ^3/uL (0-0.2); Basophils % (auto) 0.4 % (0.0-2.0); Eosinophils # (auto) 0.2 10 ^3/uL (0-0.8); Eosinophils % (auto) 2.3 % (0.0-7.0); Hematocrit 33.8 % (36.0-46.0); Hemoglobin 10.9 g/dL (12.2-16.2); Lymphocytes # (auto) 1.1 10 ^3/uL (0.4-5.4); Lymphocytes % (auto) 13.8 % (10.0-50.0); Mean Corpuscular Hemoglobin 32.3 pg (28.0-32.0); Mean Corpuscular Hgb Conc. 32.2 g/dL (32.0-36.0); Mean Corpuscular Volume 100.3 fL (80.0-100.0); Monocytes # (auto) 1.2 10 ^3/uL (0-1.3); Monocytes % (auto) 16.1 % (0.0-12.0); Neutrophils # (auto) 5.1 10 ^3/uL (1.6-8.6); Neutrophils % (auto) 67.4 % (37.0-80.0); Nucleated Red Blood Cells % 0.3 %; Red Blood Cells 3.37 10^6/uL (4.0-5.20); White Blood Cell 7.6 10^3/uL (4.4-10.8)
[2023-05-29 20:59] LABS: Alanine Aminotransferase 25 U/L (7-40); Albumin 3.4 g/dL (3.2-4.8); Alkaline Phosphatase 119 U/L (46-116); Anion Gap 15 (5-15); Aspartate Aminotransferase 21 U/L (13-40); BUN/Creatinine Ratio 10.8 (10.0-20.0); Bilirubin, Total < 0.2 mg/dL (0.2-1.0); Blood Urea Nitrogen 66 mg/dL (9-23); Calcium 7.3 mg/dL (8.7-10.4); Carbon Dioxide 22 mmol/L (20-30); Chloride 97 mmol/L (98-107); Glucose 93 mg/dL (74-106); Sodium 134 mmol/L (136-145)
[2023-05-29] MEDS ORDERED: IOHEXOL 350 MG/ML 100ML IJ ONE (21:10)
[2023-05-29 21:16] LABS: Potassium 5.7 mmol/L (3.5-5.1)
[2023-05-29] MEDS ORDERED: HYDROmorphone HCL 2 MG/ML VL/or syr IV ONE (21:45)
[2023-05-29] MEDS ORDERED: CALCIUM GLUC 1,000mg/50ml-NS 50 ML IV ONE (23:30)
[2023-05-29] MEDS ORDERED: InsuLIN REG 1unit/0.01ml Soln (100units/ml) IV ONE (23:30)
[2023-05-29] MEDS ORDERED: DEXTROSE (50%) 50ML SYRG IV ONE (23:30)
[2023-05-29] MEDS ORDERED: DexAMETHasone SOD PHOS 10MG/1ML VIAL INJ IV ONE (23:45)
[2023-05-30] MEDS ORDERED: HYDROcodone-ACET 5/325MG TAB PO PRN (01:15)
[2023-05-30] MEDS ORDERED: ASPirin 81 mg TAB PO ONE (01:15)
[2023-05-30] MEDS ORDERED: ACETAMINOPHEN 325 MG TAB PO PRN (01:15)
[2023-05-30] MEDS ORDERED: DOCUSATE SOD 100 MG CAP PO PRN (01:15)
[2023-05-30 01:35] VITALS: BP 106/72; PULSE 132; RESP 15; TEMP 97.7; O2SAT 94
[2023-05-30] MEDS ORDERED: NITROGLYCERIN 0.4 MG SL TAB SL PRN (04:45)
[2023-05-30] MEDS: MORPHINE SULFATE INJ 2 MG/ml SYRG IV PRN ×3 (05:23→22:02)
[2023-05-30] MEDS: ONDANSETRON HCL 4 MG/2 ML VIAL IV PRN ×3 (05:23→21:59)
[2023-05-30] MEDS: SODIUM CHLOR 0.9% PF (SALINE LOCK) 10ML VIAL/SYR IV SCH ×3 (06:00→21:52)
[2023-05-30 06:35] LABS: Alanine Aminotransferase 25 U/L (7-40); Albumin 3.2 g/dL (3.2-4.8); Alkaline Phosphatase 114 U/L (46-116); Anion Gap 13 (5-15); Aspartate Aminotransferase 18 U/L (13-40); BUN/Creatinine Ratio 10.9 (10.0-20.0); Bilirubin, Total < 0.2 mg/dL (0.2-1.0); Blood Urea Nitrogen 71 mg/dL (9-23); Calcium 7.2 mg/dL (8.7-10.4); Carbon Dioxide 23 mmol/L (20-30); Chloride 97 mmol/L (98-107); Glucose 118 mg/dL (74-106); Sodium 133 mmol/L (136-145); Total Protein 6.6 g/dL (5.7-8.2)
[2023-05-30 06:37] LABS: Basophils # (auto) 0 10 ^3/uL (0-0.2); Basophils % (auto) 0.2 % (0.0-2.0); Eosinophils # (auto) 0 10 ^3/uL (0-0.8); Eosinophils % (auto) 0.1 % (0.0-7.0); Hematocrit 31.2 % (36.0-46.0); Hemoglobin 10.2 g/dL (12.2-16.2); Lymphocytes # (auto) 0.5 10 ^3/uL (0.4-5.4); Lymphocytes % (auto) 6.8 % (10.0-50.0); Mean Corpuscular Hemoglobin 32.2 pg (28.0-32.0); Mean Corpuscular Hgb Conc. 32.6 g/dL (32.0-36.0); Mean Corpuscular Volume 98.7 fL (80.0-100.0); Monocytes # (auto) 0.8 10 ^3/uL (0-1.3); Monocytes % (auto) 11.2 % (0.0-12.0); Neutrophils % (auto) 81.7 % (37.0-80.0); Nucleated Red Blood Cells % 0.1 %; Red Blood Cells 3.16 10^6/uL (4.0-5.20); Red Cell Distribution Width 17.5 % (11.8-14.3); White Blood Cell 7.4 10^3/uL (4.4-10.8)
[2023-05-30 06:46] LABS: Potassium 6.4 mmol/L (3.5-5.1)
[2023-05-30 06:54] LABS: INR 1.19 (0.9-1.15); Prothrombin Time 12.4 sec (9.3-11.8)
[2023-05-30] MEDS ORDERED: HEPARIN SODIUM (PORCINE) 5000 UNITS/ML 1ML VIAL SC ONE (07:15)
[2023-05-30] MEDS ORDERED: InsuLIN REG 1unit/0.01ml Soln (100units/ml) IV ONE (07:45)
[2023-05-30] MEDS ORDERED: CALCIUM GLUC 1,000mg/50ml-NS 50 ML IV ONE (07:45)
[2023-05-30] MEDS ORDERED: DEXTROSE (50%) 50ML SYRG IV ONE (07:45)
[2023-05-30] MEDS: CALCIUM ACETATE 667 MG CAP PO SCH ×3 (08:00→18:23)
[2023-05-30 08:20] VITALS: PULSE 104; RESP 16; O2SAT 98
[2023-05-30] MEDS: SEVELAMER 800 MG TAB PO SCH ×3 (08:35→18:23)
[2023-05-30] MEDS: SODIUM ZIRCONIUM CYCL 10 GM PAK PO SCH ×3 (09:54→21:57)
[2023-05-30] MEDS: HEPARIN SODIUM (PORCINE) 5000 UNITS/ML 1ML VIAL SC SCH ×2 (10:00→21:59)
[2023-05-30] MEDS ORDERED: ASPirin 81 mg TAB PO SCH ×2 (10:00→22:00)
[2023-05-30] MEDS ORDERED: DexAMETHasone SOD PHOS 10MG/1ML VIAL INJ IV SCH (10:00)
[2023-05-30] MEDS: CLOPIDOGREL BISULFATE 75 MG TAB PO SCH (11:36)
[2023-05-30] MEDS: FAMOTIDINE (10MG/ML) 2ML VL IV SCH ×2 (11:37→21:52)
[2023-05-30] MEDS: B-COMPLEX W/ C & FOLIC ACID(NEPHROVITE TAB) PO SCH (11:38)
[2023-05-30] MEDS ORDERED: BISACODYL 10 MG RECT SUPP PR ONE (16:45)
[2023-05-30 19:30] VITALS: PULSE 109; RESP 14; O2SAT 93
[2023-05-30] MEDS: ALPRAZolam 0.5 MG TAB PO PRN (22:00)
[2023-05-30] MEDS: BISACODYL 10 MG RECT SUPP PR PRN (22:00)
[2023-05-30] MEDS: OXYCODONE W/ ACETAMINOPHEN 5/325MG TABLET PO PRN (23:58)
[2023-05-31] VITALS (8 sets, daily range): BP systolic 106–109; BP diastolic 60–66; PULSE 100–131; RESP 14–23; TEMP 98.2–98.3; O2SAT 4–100
[2023-05-31] MEDS: ALBUMIN 25% 100 ML IV PRN ×2 (05:55→07:16)
[2023-05-31] MEDS: SODIUM ZIRCONIUM CYCL 10 GM PAK PO SCH ×3 (06:00→23:44)
[2023-05-31 06:03] LABS: Basophils # (auto) 0 10 ^3/uL (0-0.2); Eosinophils # (auto) 0.1 10 ^3/uL (0-0.8); Hemoglobin 8.4 g/dL (12.2-16.2); Lymphocytes # (auto) 1.2 10 ^3/uL (0.4-5.4); Lymphocytes % (auto) 16.9 % (10.0-50.0); Monocytes # (auto) 1.2 10 ^3/uL (0-1.3); Neutrophils # (auto) 4.4 10 ^3/uL (1.6-8.6); White Blood Cell 6.9 10^3/uL (4.4-10.8)
[2023-05-31 06:06] LABS: Basophils % (auto) 0.5 % (0.0-2.0); Eosinophils % (auto) 1.8 % (0.0-7.0); Hematocrit 25.7 % (36.0-46.0); Mean Corpuscular Hemoglobin 32.7 pg (28.0-32.0); Mean Corpuscular Hgb Conc. 32.8 g/dL (32.0-36.0); Mean Corpuscular Volume 99.8 fL (80.0-100.0); Monocytes % (auto) 17.5 % (0.0-12.0); Neutrophils % (auto) 63.3 % (37.0-80.0); Red Blood Cells 2.57 10^6/uL (4.0-5.20)
[2023-05-31] MEDS: SODIUM CHLOR 0.9% PF (SALINE LOCK) 10ML VIAL/SYR IV SCH ×3 (06:15→23:20)
[2023-05-31] MEDS: LEVOTHYROXINE SODIUM 100 MCG TAB PO SCH (06:16)
[2023-05-31 06:22] LABS: Alanine Aminotransferase 17 U/L (7-40); Alkaline Phosphatase 101 U/L (46-116); Anion Gap 14 (5-15); Aspartate Aminotransferase 11 U/L (13-40); BUN/Creatinine Ratio 10.6 (10.0-20.0); Blood Urea Nitrogen 67 mg/dL (9-23); Calcium 7.3 mg/dL (8.7-10.4); Carbon Dioxide 22 mmol/L (20-30); Chloride 97 mmol/L (98-107); Glucose 75 mg/dL (74-106); Sodium 133 mmol/L (136-145)
[2023-05-31 06:23] LABS: Albumin 3.1 g/dL (3.2-4.8); Bilirubin, Total < 0.2 mg/dL (0.2-1.0); Total Protein 6.3 g/dL (5.7-8.2)
[2023-05-31 06:37] LABS: Potassium 5.9 mmol/L (3.5-5.1)
[2023-05-31] MEDS ORDERED: ROCURONIUM 10MG/ML 10ML VIAL IV ONE (06:53)
[2023-05-31] MEDS ORDERED: SUCCINYLCHOLINE CHLORIDE 20 MG/ML 10ML VIAL IV ONE (06:53)
[2023-05-31] MEDS ORDERED: fentaNYL CITRATE 100 MCG/2 ML VL ONE (06:55)
[2023-05-31] MEDS ORDERED: SODIUM CHLORIDE LOCK 0 ML ONE (06:56)
[2023-05-31] MEDS ORDERED: PROPOFOL 10 MG/ML 20 ML IV ONE (06:56)
[2023-05-31] MEDS ORDERED: MIDAZOLAM HCL 2MG/2ML 2ml VIAL (1mg/ml) ONE (06:56)
[2023-05-31] MEDS ORDERED: ONDANSETRON HCL 4 MG/2 ML VIAL ONE (06:56)
[2023-05-31] MEDS ORDERED: SODIUM CHL 0.9% 1000 ML BAG XX ONE (07:00)
[2023-05-31] MEDS: SEVELAMER 800 MG TAB PO SCH ×4 (08:00→18:03)
[2023-05-31] MEDS: ONDANSETRON HCL 4 MG/2 ML VIAL IV PRN ×2 (08:21→15:30)
[2023-05-31] MEDS: CALCIUM ACETATE 667 MG CAP PO SCH ×3 (08:21→18:03)
[2023-05-31] MEDS: MORPHINE SULFATE INJ 2 MG/ml SYRG IV PRN ×4 (08:21→23:51)
[2023-05-31] MEDS ORDERED: HYDROmorphone HCL 2 MG/ML VL/or syr IV ONE (09:45)
[2023-05-31] MEDS: POLYETHYLENE GLYCOL 17 GM PWDR PO SCH (10:00)
[2023-05-31] MEDS: HEPARIN SODIUM (PORCINE) 5000 UNITS/ML 1ML VIAL SC SCH ×2 (10:00→21:40)
[2023-05-31] MEDS: CLOPIDOGREL BISULFATE 75 MG TAB PO SCH (10:00)
[2023-05-31] MEDS: B-COMPLEX W/ C & FOLIC ACID(NEPHROVITE TAB) PO SCH (10:18)
[2023-05-31] MEDS: FAMOTIDINE (10MG/ML) 2ML VL IV SCH ×2 (10:18→21:30)
[2023-05-31] MEDS ORDERED: LACTULOSE 20Gm/30ML SOLN PO ONE (12:00)
[2023-05-31] MEDS: CARISOPRODOL 350 MG TAB PO PRN (15:49)
[2023-05-31] MEDS ORDERED: EPOETIN ALFA-EPBX 4,000 UNIT/ML VIAL SC ONE (21:00)
[2023-05-31] MEDS ORDERED: HEPARIN SODIUM (PORCINE) 5000 UNITS/ML 1ML VIAL ONE ×2 (21:19→21:20)
[2023-05-31] MEDS: OXYCODONE W/ ACETAMINOPHEN 5/325MG TABLET PO PRN (21:30)
[2023-06-01] VITALS (14 sets, daily range): BP systolic 102–123; BP diastolic 54–77; PULSE 98–131; RESP 17–20; TEMP 97.2–98.6; O2SAT 91–99
[2023-06-01] MEDS: ALBUTEROL MEDNEB 2.5 mg/3ml NEB NEB PRN ×2 (02:30→21:39)
[2023-06-01] MEDS: IPRATROPIUM BROM 0.5 MG/2.5ML INH SOL NEB PRN ×2 (02:30→21:39)
[2023-06-01] MEDS: CARISOPRODOL 350 MG TAB PO PRN ×2 (02:51→14:51)
[2023-06-01] MEDS: OXYCODONE W/ ACETAMINOPHEN 5/325MG TABLET PO PRN (06:04)
[2023-06-01] MEDS: SODIUM CHLOR 0.9% PF (SALINE LOCK) 10ML VIAL/SYR IV SCH ×3 (06:04→21:39)
[2023-06-01 07:14] LABS: Chloride 99 mmol/L (98-107); Potassium 4.2 mmol/L (3.5-5.1); Sodium 136 mmol/L (136-145)
[2023-06-01 07:15] LABS: Anion Gap 10 (5-15); Calcium 8.7 mg/dL (8.5-10.1); Carbon Dioxide 27 mmol/L (20-30)
[2023-06-01 07:20] LABS: BUN/Creatinine Ratio 8.4 (10.0-20.0); Glucose 92 mg/dL (74-106)
[2023-06-01 07:21] LABS: Blood Urea Nitrogen 43 mg/dL (9-23)
[2023-06-01 07:23] LABS: Basophils # (auto) 0 10 ^3/uL (0-0.2); Basophils % (auto) 0.6 % (0.0-2.0); Eosinophils # (auto) 0.1 10 ^3/uL (0-0.8); Eosinophils % (auto) 1.5 % (0.0-7.0); Hematocrit 26.3 % (36.0-46.0); Hemoglobin 8.6 g/dL (12.2-16.2); Lymphocytes # (auto) 1.4 10 ^3/uL (0.4-5.4); Mean Corpuscular Hemoglobin 32.9 pg (28.0-32.0); Mean Corpuscular Hgb Conc. 32.8 g/dL (32.0-36.0); Mean Corpuscular Volume 100.2 fL (80.0-100.0); Monocytes # (auto) 1.3 10 ^3/uL (0-1.3); Monocytes % (auto) 17.7 % (0.0-12.0); Neutrophils # (auto) 4.3 10 ^3/uL (1.6-8.6); Neutrophils % (auto) 60.2 % (37.0-80.0); Red Blood Cells 2.63 10^6/uL (4.0-5.20); Red Cell Distribution Width 17.9 % (11.8-14.3); White Blood Cell 7.1 10^3/uL (4.4-10.8)
[2023-06-01] MEDS: CALCIUM ACETATE 667 MG CAP PO SCH ×3 (08:00→17:39)
[2023-06-01] MEDS: SEVELAMER 800 MG TAB PO SCH ×3 (08:43→17:38)
[2023-06-01] MEDS: LEVOTHYROXINE SODIUM 100 MCG TAB PO SCH (08:43)
[2023-06-01] MEDS: MORPHINE SULFATE INJ 2 MG/ml SYRG IV PRN (08:45)
[2023-06-01] MEDS: POLYETHYLENE GLYCOL 17 GM PWDR PO SCH (10:00)
[2023-06-01 10:37] LABS: INR 1.09 (0.9-1.15); Partial Thromboplastin Time 36.7 SEC (24.5-34.5); Prothrombin Time 11.4 sec (9.3-11.8)
[2023-06-01] MEDS: HEPARIN SODIUM (PORCINE) 5000 UNITS/ML 1ML VIAL SC SCH ×2 (11:32→21:41)
[2023-06-01] MEDS: CLOPIDOGREL BISULFATE 75 MG TAB PO SCH (11:35)
[2023-06-01] MEDS: B-COMPLEX W/ C & FOLIC ACID(NEPHROVITE TAB) PO SCH (11:35)
[2023-06-01] MEDS: HYDROmorphone HCL 2 MG/ML VL/or syr IV PRN ×3 (12:10→20:33)
[2023-06-01] MEDS: MUPIROCIN 2% OINT 15gm or 22gm FOR MRSA NARES EACHNOSTRI SCH (21:39)
[2023-06-01] MEDS: ALPRAZolam 0.5 MG TAB PO PRN (21:39)
[2023-06-02] VITALS (8 sets, daily range): BP systolic 96–138; BP diastolic 63–78; PULSE 103–116; RESP 16–20; TEMP 97.8–98.4; O2SAT 93–98
[2023-06-02 05:36] LABS: Chloride 97 mmol/L (98-107); Hematocrit 28.4 % (36.0-46.0); Hemoglobin 9.1 g/dL (12.2-16.2); Mean Corpuscular Hemoglobin 32.3 pg (28.0-32.0); Mean Corpuscular Volume 100.9 fL (80.0-100.0); Potassium 4.2 mmol/L (3.5-5.1); Red Blood Cells 2.81 10^6/uL (4.0-5.20); Red Cell Distribution Width 18.1 % (11.8-14.3); Sodium 136 mmol/L (136-145); White Blood Cell 7.2 10^3/uL (4.4-10.8)
[2023-06-02 05:37] LABS: Anion Gap 11 (5-15); Carbon Dioxide 28 mmol/L (20-30)
[2023-06-02 05:38] LABS: Calcium 9.1 mg/dL (8.5-10.1)
[2023-06-02 05:42] LABS: Glucose 98 mg/dL (74-106)
[2023-06-02 05:43] LABS: BUN/Creatinine Ratio 8.9 (10.0-20.0)
[2023-06-02] MEDS: LEVOTHYROXINE SODIUM 100 MCG TAB PO SCH (05:55)
[2023-06-02] MEDS: SODIUM CHLOR 0.9% PF (SALINE LOCK) 10ML VIAL/SYR IV SCH ×3 (05:55→21:26)
[2023-06-02] MEDS: HYDROmorphone HCL 2 MG/ML VL/or syr IV PRN ×3 (05:55→17:41)
[2023-06-02 06:02] LABS: Band Neutrophils % (manual) 0; Basophils % (manual) 0 (0.0-2.0); Blast Cells 0; Metamyelocytes % 0; Myelocytes % 0; Promyelocytes % 0; Reactive Lymphocytes 0
[2023-06-02 06:05] LABS: Blood Urea Nitrogen 54 mg/dL (9-23)
[2023-06-02] MEDS ORDERED: SODIUM CHL 0.9% 1000 ML BAG XX ONE (07:00)
[2023-06-02] MEDS: CALCIUM ACETATE 667 MG CAP PO SCH ×3 (08:01→17:41)
[2023-06-02] MEDS: SEVELAMER 800 MG TAB PO SCH ×3 (08:01→17:41)
[2023-06-02] MEDS: FAMOTIDINE 20 MG TAB PO SCH (10:01)
[2023-06-02] MEDS: POLYETHYLENE GLYCOL 17 GM PWDR PO SCH (10:01)
[2023-06-02] MEDS: CLOPIDOGREL BISULFATE 75 MG TAB PO SCH (10:01)
[2023-06-02] MEDS: B-COMPLEX W/ C & FOLIC ACID(NEPHROVITE TAB) PO SCH (10:01)
[2023-06-02] MEDS: MUPIROCIN 2% OINT 15gm or 22gm FOR MRSA NARES EACHNOSTRI SCH ×2 (10:02→21:26)
[2023-06-02] MEDS: HEPARIN SODIUM (PORCINE) 5000 UNITS/ML 1ML VIAL SC SCH ×2 (10:02→21:29)
[2023-06-02 12:04] LABS: Eosinophils % (manual) 3 (0-7); Lymphocytes % (manual) 14 (10.0-50.0); Macrocytosis Slight; Monocytes % (manual) 13 (0-12); Platelet Estimate Adequate
[2023-06-02] MEDS: OXYCODONE W/ ACETAMINOPHEN 5/325MG TABLET PO PRN (19:59)
[2023-06-02] MEDS ORDERED: EPOETIN ALFA-EPBX 4,000 UNIT/ML VIAL SC ONE (21:00)
[2023-06-02] MEDS: IPRATROPIUM BROM 0.5 MG/2.5ML INH SOL NEB PRN (21:54)
[2023-06-02] MEDS: ALBUTEROL MEDNEB 2.5 mg/3ml NEB NEB PRN (21:54)
[2023-06-03] VITALS (8 sets, daily range): BP systolic 119–152; BP diastolic 69–95; PULSE 94–112; RESP 14–18; TEMP 36.8; O2SAT 92–100
[2023-06-03] MEDS: HYDROmorphone HCL 2 MG/ML VL/or syr IV PRN ×3 (04:00→18:54)
[2023-06-03] MEDS: SODIUM CHLOR 0.9% PF (SALINE LOCK) 10ML VIAL/SYR IV SCH ×3 (05:55→21:49)
[2023-06-03] MEDS: LEVOTHYROXINE SODIUM 100 MCG TAB PO SCH (06:11)
[2023-06-03] MEDS: POLYETHYLENE GLYCOL 17 GM PWDR PO SCH (09:40)
[2023-06-03] MEDS: CLOPIDOGREL BISULFATE 75 MG TAB PO SCH (09:40)
[2023-06-03] MEDS: FAMOTIDINE 20 MG TAB PO SCH (09:40)
[2023-06-03] MEDS: B-COMPLEX W/ C & FOLIC ACID(NEPHROVITE TAB) PO SCH (09:40)
[2023-06-03] MEDS: SEVELAMER 800 MG TAB PO SCH ×3 (09:40→18:52)
[2023-06-03] MEDS: OXYCODONE W/ ACETAMINOPHEN 5/325MG TABLET PO PRN ×3 (09:41→23:05)
[2023-06-03] MEDS: HEPARIN SODIUM (PORCINE) 5000 UNITS/ML 1ML VIAL SC SCH ×2 (09:55→21:52)
[2023-06-03] MEDS: MUPIROCIN 2% OINT 15gm or 22gm FOR MRSA NARES EACHNOSTRI SCH ×2 (09:59→21:50)
[2023-06-03] MEDS: CALCIUM ACETATE 667 MG CAP PO SCH ×3 (10:01→18:52)
[2023-06-03] MEDS: BISACODYL 10 MG RECT SUPP PR PRN (17:28)
[2023-06-04] VITALS (7 sets, daily range): BP systolic 134–150; BP diastolic 74–89; PULSE 101–114; RESP 16–20; TEMP 97.9–98.4; O2SAT 91–100
[2023-06-04] MEDS: CARISOPRODOL 350 MG TAB PO PRN (01:02)
[2023-06-04] MEDS: HYDROmorphone HCL 2 MG/ML VL/or syr IV PRN ×2 (01:08→11:12)
[2023-06-04] MEDS: ALBUTEROL MEDNEB 2.5 mg/3ml NEB NEB PRN (01:41)
[2023-06-04] MEDS: IPRATROPIUM BROM 0.5 MG/2.5ML INH SOL NEB PRN (01:41)
[2023-06-04] MEDS: SODIUM CHLOR 0.9% PF (SALINE LOCK) 10ML VIAL/SYR IV SCH (05:39)
[2023-06-04 06:15] LABS: Hematocrit 28.2 % (36.0-46.0); Hemoglobin 9.1 g/dL (12.2-16.2); Mean Corpuscular Hemoglobin 32.3 pg (28.0-32.0); Mean Corpuscular Hgb Conc. 32.2 g/dL (32.0-36.0); Mean Corpuscular Volume 100.5 fL (80.0-100.0); Red Cell Distribution Width 17.8 % (11.8-14.3)
[2023-06-04] MEDS: LEVOTHYROXINE SODIUM 100 MCG TAB PO SCH (06:27)
[2023-06-04 06:35] LABS: Alkaline Phosphatase 99 U/L (46-116); Anion Gap 12 (5-15); BUN/Creatinine Ratio 9.2 (10.0-20.0); Blood Urea Nitrogen 57 mg/dL (9-23); Calcium 9.2 mg/dL (8.7-10.4); Carbon Dioxide 27 mmol/L (20-30); Chloride 96 mmol/L (98-107); Glucose 85 mg/dL (74-106); Magnesium 2.4 mg/dL (1.6-2.6); Potassium 4.3 mmol/L (3.5-5.1); Sodium 135 mmol/L (136-145)
[2023-06-04 06:36] LABS: Albumin 3.6 g/dL (3.2-4.8); Aspartate Aminotransferase 9 U/L (13-40)
[2023-06-04 06:37] LABS: Bilirubin, Total < 0.2 mg/dL (0.2-1.0); Total Protein 7.3 g/dL (5.7-8.2)
[2023-06-04 06:44] LABS: Band Neutrophils % (manual) 0; Basophils % (manual) 0 (0.0-2.0); Blast Cells 0; Eosinophils % (manual) 0 (0-7); Metamyelocytes % 0; Myelocytes % 0; Promyelocytes % 0; Reactive Lymphocytes 0
[2023-06-04 07:12] LABS: Alanine Aminotransferase < 9 U/L (7-40)
[2023-06-04] MEDS: CLOPIDOGREL BISULFATE 75 MG TAB PO SCH (09:05)
[2023-06-04] MEDS: CALCIUM ACETATE 667 MG CAP PO SCH ×2 (09:05→12:00)
[2023-06-04] MEDS: SEVELAMER 800 MG TAB PO SCH ×2 (09:05→12:00)
[2023-06-04] MEDS: B-COMPLEX W/ C & FOLIC ACID(NEPHROVITE TAB) PO SCH (09:05)
[2023-06-04] MEDS: FAMOTIDINE 20 MG TAB PO SCH (09:05)
[2023-06-04] MEDS: MUPIROCIN 2% OINT 15gm or 22gm FOR MRSA NARES EACHNOSTRI SCH (09:06)
[2023-06-04] MEDS: POLYETHYLENE GLYCOL 17 GM PWDR PO SCH (09:06)
[2023-06-04] MEDS: HEPARIN SODIUM (PORCINE) 5000 UNITS/ML 1ML VIAL SC SCH (09:10)
[2023-06-04] MEDS: OXYCODONE W/ ACETAMINOPHEN 5/325MG TABLET PO PRN ×2 (10:50→13:32)
[2023-06-04 11:05] LABS: Lymphocytes % (manual) 27 (10.0-50.0); Monocytes % (manual) 13 (0-12)
[2023-06-04 11:06] LABS: Platelet Estimate Adequate
[2023-06-04 11:07] LABS: Macrocytosis Slight
== END 2023-06-04 13:45 | DRG 535 ==
LOC: EDBD 19:34 → ER 19:34 → TELE 05-30 04:33 → TELE-EAST 05-30 05:19
PROVIDERS: ADMIT Nurse Practitioner Family; ATTEND Internal Medicine
PROC: 5A1D70Z Performance of Urinary Filtration, Intermittent, Less than 6 Hours Per Day (ICD-10-PCS; principal; 2023-05-31)
PROC: 5A1D70Z Performance of Urinary Filtration, Intermittent, Less than 6 Hours Per Day (ICD-10-PCS; 2023-06-02)
PROC: 5A1D70Z Performance of Urinary Filtration, Intermittent, Less than 6 Hours Per Day (ICD-10-PCS; 2023-06-04)
DX: S72.141A Displaced intertrochanteric fracture of right femur, initial encounter for closed fracture (principal); I21.A1 Myocardial infarction type 2; I50.43 Acute on chronic combined systolic (congestive) and diastolic (congestive) heart failure; N18.6 End stage renal disease; I13.2 Hypertensive heart and chronic kidney disease with heart failure and with stage 5 chronic kidney disease, or end stage renal disease; J98.11 Atelectasis; G82.20 Paraplegia, unspecified; J96.10 Chronic respiratory failure, unspecified whether with hypoxia or hypercapnia; G89.29 Other chronic pain; E87.5 Hyperkalemia; E83.51 Hypocalcemia; D64.9 Anemia, unspecified; J44.9 Chronic obstructive pulmonary disease, unspecified; E03.9 Hypothyroidism, unspecified; I25.10 Atherosclerotic heart disease of native coronary artery without angina pectoris; E78.5 Hyperlipidemia, unspecified; W05.0XXA Fall from non-moving wheelchair, initial encounter; L89.150 Pressure ulcer of sacral region, unstageable; K59.00 Constipation, unspecified; Z99.2 Dependence on renal dialysis; Z99.81 Dependence on supplemental oxygen; Z88.8 Allergy status to other drugs, medicaments and biological substances; Z22.322 Carrier or suspected carrier of Methicillin resistant Staphylococcus aureus; Y93.89 Activity, other specified; Y92.89 Other specified places as the place of occurrence of the external cause; Y99.8 Other external cause status
CPT/HCPCS: 36415; 70450; 71045; 72125; 72170; 80048; 80053; 82962; 83735; 83880; 84443; 84484; 85007; 85025; 85027; 85610; 85730; 86850; 86900; 86901; 87081; 87340; 90935; 93005; 93306; 94640; 96365; 96375; 99291; G0378; J0330; J1100; J1642; J1815; J2250; J2405; J2704; J3490; P9047

== ENCOUNTER 2024-03-12 10:01 | Inpatient (IN) | payer MEDICARE, MEDICAID ==
[~2024-03-12] VITALS: Ht 162.6 cm; Wt 64.3 kg
[~2024-03-12 10:01] MED LIST changes: +ALBU0.084 NEB; +B-CO-6 PO; +CARV12.544 PO; -CARV25TA55 PO; +FLUC150T47 PO; -HYDR-4297 PO; +HYDR25TA87 PO; +LISI20TA56 PO; +QUET100T38 PO; -QUET25TA37 PO; +TENA30TA PO; +TRI05TP TOP; +ZOFR4T PO
[2024-03-12 11:30] VITALS: PULSE 116; RESP 20; O2SAT 90
[2024-03-12 11:33] LABS: Hematocrit 34.5 % (36.0-46.0); Hemoglobin 10.9 g/dL (12.2-16.2); Mean Corpuscular Hemoglobin 32.3 pg (28.0-32.0); Mean Corpuscular Hgb Conc. 31.6 g/dL (32.0-36.0); Mean Corpuscular Volume 102.3 fL (80.0-100.0); Platelet Count (auto) 169 10^3/uL (140-450); Red Blood Cells 3.37 10^6/uL (4.0-5.20); Red Cell Distribution Width 17.8 % (11.8-14.3)
[2024-03-12 11:40] LABS: Alanine Aminotransferase 12 U/L (7-40); Albumin 3.4 g/dL (3.2-4.8); Alkaline Phosphatase 192 U/L (46-116); Anion Gap 11 (5-15); Aspartate Aminotransferase 11 U/L (13-40); BUN/Creatinine Ratio 10.9 (10.0-20.0); Bilirubin, Total < 0.2 mg/dL (0.2-1.0); Blood Urea Nitrogen 61 mg/dL (9-23); Calcium 8.1 mg/dL (8.7-10.4); Carbon Dioxide 20 mmol/L (20-30); Chloride 102 mmol/L (98-107); Glucose 84 mg/dL (74-106); Magnesium 1.9 mg/dL (1.6-2.6); Sodium 133 mmol/L (136-145); Total Protein 7.1 g/dL (5.7-8.2)
[2024-03-12] MEDS: methylPREDNISolone SOD SUCC 125 MG/2 ML VL IV ONE (11:42)
[2024-03-12 11:57] LABS: Basophils % (manual) 0 (0.0-2.0); Blast Cells 0; Eosinophils % (manual) 0 (0-7); Metamyelocytes % 0; Promyelocytes % 0; Reactive Lymphocytes 0
[2024-03-12 11:59] LABS: Band Neutrophils % (manual) 27; Lymphocytes % (manual) 38 (10.0-50.0); Macrocytosis Slight; Monocytes % (manual) 5 (0-12); Myelocytes % 1; Platelet Estimate Adequate
[2024-03-12 13:31] LABS: COVID19 ANTIGEN SOFIA FIA NEGATIVE (NEGATIVE); Rapid Influenza A Negative (Negative); Rapid Influenza B Negative (Negative)
[2024-03-12] MEDS ORDERED: NITROGLYCERIN 0.4 MG SL TAB SL PRN (13:45)
[2024-03-12] MEDS ORDERED: DOCUSATE SOD 100 MG CAP PO SCH (14:00)
[2024-03-12] MEDS ORDERED: SEVELAMER 800 MG TAB PO SCH (14:00)
[2024-03-12 14:22] LABS: INR 1.14 (0.9-1.15)
[2024-03-12] MEDS: HYDROmorphone HCL 2 MG/ML VL/or syr IV ONE (14:44)
[2024-03-12] MEDS: hydrALAZINE HCL 25 MG TAB PO SCH (14:45)
[2024-03-12] MEDS: IPRATROPIUM BROM 0.5 MG/2.5ML INH SOL NEB ONE (17:30)
[2024-03-12] MEDS: ALBUTEROL SULF 2.5 MG/0.5ML(0.5%) NEB SOLN NEB ONE (17:31)
[2024-03-12] MEDS: CARISOPRODOL 350 MG TAB PO SCH (17:59)
[2024-03-12] MEDS: SEVELAMER 800 MG TAB PO SCH (18:00)
[2024-03-12] MEDS: ONDANSETRON HCL 4 MG/2 ML VIAL IV PRN (20:42)
[2024-03-12] MEDS: HYDROmorphone HCL 2 MG/ML VL/or syr IV PRN (20:46)
[2024-03-12] MEDS ORDERED: TEMAZEPAM 15 MG CAP PO PRN (22:00)
[2024-03-12] MEDS: SODIUM CHL 0.9% 1000 ML BAG XX ONE (22:14)
[2024-03-12] MEDS: NITROGLYCERIN 0.4 MG SL TAB SL PRN (23:09)
[2024-03-12] MEDS: CARVEDILOL 12.5 MG TAB PO SCH (23:16)
[2024-03-12] MEDS: ALPRAZolam 0.25 MG TAB PO SCH (23:16)
[2024-03-12] MEDS: ASCORBIC ACID 500 MG TAB PO SCH (23:17)
[2024-03-12] MEDS: OXYCODONE W/ ACETAMINOPHEN 5/325MG TABLET PO PRN (23:26)
[2024-03-12] MEDS: DOXEPIN HCL 50 MG PO SCH (23:29)
[2024-03-12] MEDS: XPHOZAH PO SCH (23:30)
[2024-03-12] MEDS: TRIAMCINOLONE ACET0.5% TOPICAL CRE 15GM TOP SCH (23:34)
[2024-03-13 04:28] LABS: Basophils # (auto) 0 10 ^3/uL (0-0.2); Basophils % (auto) 0.2 % (0.0-2.0); Eosinophils # (auto) 0 10 ^3/uL (0-0.8); Hematocrit 34.9 % (36.0-46.0); Hemoglobin 11.2 g/dL (12.2-16.2); Lymphocytes # (auto) 0.6 10 ^3/uL (0.4-5.4); Lymphocytes % (auto) 8.3 % (10.0-50.0); Mean Corpuscular Hemoglobin 32.3 pg (28.0-32.0); Mean Corpuscular Hgb Conc. 32.2 g/dL (32.0-36.0); Mean Corpuscular Volume 100.3 fL (80.0-100.0); Monocytes # (auto) 0.6 10 ^3/uL (0-1.3); Monocytes % (auto) 7.7 % (0.0-12.0); Neutrophils # (auto) 6.1 10 ^3/uL (1.6-8.6); Neutrophils % (auto) 83.8 % (37.0-80.0); Platelet Count (auto) 171 10^3/uL (140-450); Red Blood Cells 3.49 10^6/uL (4.0-5.20); Red Cell Distribution Width 18.4 % (11.8-14.3); White Blood Cell 7.3 10^3/uL (4.4-10.8)
[2024-03-13 04:54] LABS: Albumin 3.6 g/dL (3.2-4.8); Alkaline Phosphatase 193 U/L (46-116); Anion Gap 11 (5-15); Aspartate Aminotransferase 9 U/L (13-40); BUN/Creatinine Ratio 9.7 (10.0-20.0); Calcium 8.1 mg/dL (8.7-10.4); Carbon Dioxide 22 mmol/L (20-30); Chloride 102 mmol/L (98-107); Glucose 125 mg/dL (74-106); Potassium 4.8 mmol/L (3.5-5.1); Sodium 135 mmol/L (136-145)
[2024-03-13 04:55] LABS: Bilirubin, Total < 0.2 mg/dL (0.2-1.0); Total Protein 7.5 g/dL (5.7-8.2)
[2024-03-13 05:01] LABS: Alanine Aminotransferase < 9 U/L (7-40); Blood Urea Nitrogen 46 mg/dL (9-23)
[2024-03-13 05:27] LABS: LDL Cholesterol 50 mg/dL (< 100); Triglycerides 92 mg/dL (< 150)
[2024-03-13 05:29] LABS: Cholesterol 137 mg/dL (< 200); HDL Cholesterol 49 mg/dL (40-59)
[2024-03-13] MEDS: LEVOTHYROXINE SODIUM 100 MCG TAB PO SCH (06:39)
[2024-03-13 09:48] VITALS: PULSE 96; RESP 14; O2SAT 88
[2024-03-13] MEDS: CINACALCET HYDROCHLORIDE 30 MG TAB PO SCH (10:00)
[2024-03-13] MEDS ORDERED: ONDANSETRON ODT 4 MG TAB PO SCH (10:00)
[2024-03-13] MEDS: SODIUM CHL 0.9% 1000 ML BAG XX ONE (10:00)
[2024-03-13] MEDS: ENOXAPARIN SOD 30 MG/0.3 ML SYRINGE SC SCH (10:37)
[2024-03-13] MEDS: NIFEdipine ER 30 MG TAB PO SCH (10:38)
[2024-03-13] MEDS: ISOSORBIDE MONONITRATE ER 60 MG TAB PO SCH (10:39)
[2024-03-13] MEDS: QUEtiapine FUMARATE 100 MG TAB PO SCH (10:39)
[2024-03-13] MEDS: DOCUSATE SOD 100 MG CAP PO SCH (10:39)
[2024-03-13] MEDS: PANTOPRAZOLE 40 MG TAB PO SCH (10:39)
[2024-03-13] MEDS: B-COMPLEX W/ C & FOLIC ACID(NEPHROVITE TAB) PO SCH (10:39)
[2024-03-13] MEDS: CLOPIDOGREL BISULFATE 75 MG TAB PO SCH (10:39)
[2024-03-13] MEDS: LISINOPRIL 20 MG TAB PO SCH (10:40)
[2024-03-13 14:54] LABS: Erythrocyte Sedimentation Rate 62 mm/hr (0-20)
[2024-03-13] MEDS ORDERED: VANCOMYCIN PER PHARMACY 0 MG IV SCH (17:00)
[2024-03-13] MEDS ORDERED: AMPICILLIN & SULBACTAM SODIUM 3 GM in SODIUM CHL 0.9% 100 ML IV SCH (17:00)
[2024-03-13 17:35] VITALS: BP 95/54; PULSE 90; RESP 18; TEMP 98.1; O2SAT 95
[2024-03-13] MEDS: VANCOMYCIN 1.25GM/250ML 250 ML IV ONE (18:09)
[2024-03-13] MEDS: LACTULOSE 20Gm/30ML SOLN PO SCH (18:09)
[2024-03-13] MEDS: METOCLOPRAMIDE HCL 5MG/ml INJ 2ml VIAL IV ONE (18:09)
[2024-03-13] MEDS: POLYETHYLENE GLYCOL 17 GM PWDR PO ONE (18:09)
[2024-03-13 20:00] VITALS: PULSE 87; PULSE 97; O2SAT 97
[2024-03-13] MEDS: AMPICILLIN & SULBACTAM SODIUM 3 GM in SODIUM CHL 0.9% 100 ML IV SCH (20:07)
[2024-03-13 21:00] VITALS: BP_SYST 106; BP_SYST 118; BP_DIAS 50; BP_DIAS 57; PULSE 81; PULSE 90; RESP 16; RESP 17; TEMP 97.6; TEMP 98; O2SAT 95; O2SAT 97
[2024-03-13] MEDS: EPOETIN ALFA-EPBX 4,000 UNIT/ML VIAL SC ONE (21:00)
[2024-03-13] MEDS: ATORVASTATIN 20 MG TAB PO SCH (23:23)
[2024-03-14] VITALS (8 sets, daily range): BP systolic 90–137; BP diastolic 58–80; PULSE 88–108; RESP 16–20; TEMP 97.7–98.4; O2SAT 92–97
[2024-03-14 06:22] LABS: Chloride 103 mmol/L (98-107); Potassium 5.3 mmol/L (3.5-5.1); Sodium 133 mmol/L (136-145)
[2024-03-14 06:23] LABS: Anion Gap 15 (5-15); Calcium 7.3 mg/dL (8.7-10.4); Carbon Dioxide 15 mmol/L (20-30)
[2024-03-14 06:28] LABS: BUN/Creatinine Ratio 13.8 (10.0-20.0); Glucose 70 mg/dL (74-106)
[2024-03-14 06:29] LABS: Blood Urea Nitrogen 77 mg/dL (9-23)
[2024-03-14] MEDS: HEPARIN SODIUM (PORCINE) 5000 UNITS/ML 1ML VIAL SC SCH (10:54)
[2024-03-14] MEDS: VANCOMYCIN 1GM/200ML 200 ML IV ONE (17:57)
[2024-03-15] VITALS (8 sets, daily range): BP systolic 93–121; BP diastolic 53–69; PULSE 78–105; RESP 15–17; TEMP 97.2–98.9; O2SAT 90–96
[2024-03-15 06:08] LABS: INR 1.14 (0.9-1.15); Partial Thromboplastin Time 33.3 SEC (24.5-34.5)
[2024-03-15 10:48] LABS: Hepatitis B Surface Antigen Negative (Negative)
[2024-03-15 11:09] LABS: Hepatitis B Core IgM Negative; Hepatitis C Antibody Negative (Negative)
[2024-03-15 16:33] LABS: Hepatitis A Ab IgM Negative
[2024-03-16] VITALS (8 sets, daily range): BP systolic 106–148; BP diastolic 62–84; PULSE 63–112; RESP 12–20; TEMP 97.8–99.4; O2SAT 92–100
[2024-03-16] MEDS: MORPHINE SULFATE INJ 2 MG/ml SYRG IV PRN (04:16)
[2024-03-16 06:54] LABS: Anion Gap 14 (5-15); Carbon Dioxide 20 mmol/L (20-30); Chloride 101 mmol/L (98-107); Sodium 135 mmol/L (136-145)
[2024-03-16 07:00] LABS: Blood Urea Nitrogen 48 mg/dL (9-23); Glucose 106 mg/dL (74-106)
[2024-03-16] MEDS: SODIUM CHL 0.9% 1000 ML BAG XX ONE (07:00)
[2024-03-16] MEDS: ACETAMINOPHEN 325 MG TAB PO PRN (12:11)
[2024-03-16] MEDS: cefTRIAXone 1GM/50ML D5W 50 ML IV SCH (13:16)
[2024-03-16] MEDS ORDERED: BACDST PO (14:18)
[2024-03-16] MEDS ORDERED: AMPI500C9 PO (14:18)
[2024-03-16] MEDS: OXYCODONE W/ ACETAMINOPHEN 5/325MG TABLET PO PRN (21:24)
[2024-03-16] MEDS: EPOETIN ALFA-EPBX 4,000 UNIT/ML VIAL SC ONE (21:28)
[2024-03-16] MEDS: HYDROCORTISONE ACET 25 MG RECTAL SUPP PR SCH (21:40)
[2024-03-17] VITALS (7 sets, daily range): BP systolic 93–121; BP diastolic 53–73; PULSE 88–105; RESP 15–20; TEMP 97.8–98.6; O2SAT 92–99
[2024-03-17] MEDS ORDERED: SULFAMETHOX W/TRIMETH(800/160MG) DS TAB PO ONE (07:30)
[2024-03-17] MEDS: SULFAMETHOX W/TRIMETH(800/160MG) DS TAB PO ONE (10:44)
[2024-03-17] MEDS: SULFAMETHOX W/TRIMETH(800/160MG) DS TAB PO SCH (21:50)
[2024-03-18] VITALS (7 sets, daily range): BP systolic 94–106; BP diastolic 49–58; PULSE 81–99; RESP 17–20; TEMP 97.9–98.5; O2SAT 92–99
== END 2024-03-18 18:00 | disposition home health service (06) | DRG 871 ==
LOC: ER 10:01 → EDBD 10:01 → TELE 13:36 → TELE-EAST 13:46
PROVIDERS: ADMIT Nurse Practitioner Family; ATTEND Nurse Practitioner Acute Care
PROC: 5A1D70Z Performance of Urinary Filtration, Intermittent, Less than 6 Hours Per Day (ICD-10-PCS; principal; 2024-03-12)
PROC: 5A1D70Z Performance of Urinary Filtration, Intermittent, Less than 6 Hours Per Day (ICD-10-PCS; 2024-03-14)
DX: A41.9 Sepsis, unspecified organism (principal); I21.A1 Myocardial infarction type 2; I50.33 Acute on chronic diastolic (congestive) heart failure; J96.21 Acute and chronic respiratory failure with hypoxia; N18.6 End stage renal disease; I13.2 Hypertensive heart and chronic kidney disease with heart failure and with stage 5 chronic kidney disease, or end stage renal disease; N25.81 Secondary hyperparathyroidism of renal origin; G82.20 Paraplegia, unspecified; Z20.822 Contact with and (suspected) exposure to COVID-19; F31.9 Bipolar disorder, unspecified; K59.00 Constipation, unspecified; I25.10 Atherosclerotic heart disease of native coronary artery without angina pectoris; K64.9 Unspecified hemorrhoids; D63.1 Anemia in chronic kidney disease; K43.9 Ventral hernia without obstruction or gangrene; L89.152 Pressure ulcer of sacral region, stage 2; K42.9 Umbilical hernia without obstruction or gangrene; J44.9 Chronic obstructive pulmonary disease, unspecified; G89.29 Other chronic pain; B96.20 Unspecified Escherichia coli [E. coli] as the cause of diseases classified elsewhere; B96.1 Klebsiella pneumoniae [K. pneumoniae] as the cause of diseases classified elsewhere; B95.2 Enterococcus as the cause of diseases classified elsewhere; Z99.2 Dependence on renal dialysis; Z74.01 Bed confinement status; Z88.8 Allergy status to other drugs, medicaments and biological substances; Z95.5 Presence of coronary angioplasty implant and graft; Z80.3 Family history of malignant neoplasm of breast; Z82.49 Family history of ischemic heart disease and other diseases of the circulatory system
CPT/HCPCS: 36415; 71045; 74177; 80048; 80053; 80061; 80074; 80202; 82565; 83605; 83735; 83880; 84484; 85007; 85025; 85027; 85610; 85652; 85730; 86141; 86850; 86900; 86901; 87077; 87081; 87186; 87205; 87426; 87804; 90935; 93005; G0378; J1642; J2405

== ENCOUNTER 2024-12-07 09:31 | Inpatient (IN) | payer MEDICARE, MEDICAID ==
[~2024-12-07] VITALS: Ht 149.9 cm; Wt 63.6 kg
[~2024-12-07 09:31] MED LIST changes: +AMPI500C9 PO; +BACDST PO
--- NOTE | 2024-12-07 10:54 | ED.PDOC ---
Musculoskeletal HPI Comments 69F BIBA w/ prior MHx of Bipolar Disorder, Dialysis, Waist down paralysis, VT, Angina, CHF, HTN, COPD;SHx of Coronary Stents, Back Sx which caused paralysis and the c/c of waist pain. Pt reports on having swollen hips due from having a broken hip. Pt states onto having right lower extremity pain w/ swelling, stated on the bone possibly being out of place to the pt. Pt also reports on having mild left sided CP as well. Denies chills, fever, N/V/D, SOB. Denies any other associated symptom's, modifiers, or recent injuries or sick contact at this time. Chief Complaint: Lower Extremity Time Seen by MD: 10:30 Primary Care Provider: UNKNOWN Reviewed Notes: Nurses Notes, Account Manager Trainee Notes, Medications, Allergies Allergies: Coded Allergies: Baclofen (Verified Allergy, Unknown, 11/07/23) Home Meds Active Scripts Ampicillin (Ampicillin) 500 Mg Cap, 1 CAP PO TID for 10 Days, #30 CAP Prov:HATTIE ROLLINS NP 03/16/24 Sulfamethoxazole W/Trimethopri (Bactrim Ds Tablet) 1 Tab Tb, 1 TAB PO BID for 10 Days, #20 TAB Prov:HATTIE ROLLINS NP 03/16/24 Albuterol Sulfate (Albuterol Sulfate) 0.083 % Neb, 1 VIAL NEB Q4HPRN, #50 VIAL 2 Refills Prov:LUANNE GILL MD 11/10/23 Isosorbide Mononitrate (Isosorbide Mononitrate Er) 30 Mg Tab, 1 TAB PO DAILY, #30 TAB Prov:AZAR ALBA MD 09/01/21 Nifedipine (Nifedipine Er) 90 Mg Tab, 1 TAB PO DAILY, #30 TAB Prov:AZAR ALBA MD 09/01/21 Ascorbic Acid (VITAMIN C TABLET) 500 Mg Tb, 500 MG PO BID for 30 Days Prov:DASHAWN PELAEZ MD 09/12/18 Reported Medications Fluconazole (Fluconazole) 150 Mg Tab, 1 TAB PO DAILY for 7 Days, #7 MG 11/09/23 Triamcinolone Acetonide (Kenalog) 1 Applic Ap, 1 APPLIC TOP BID 11/09/23 Ondansetron Odt 4MG Tab (ZOFRAN PO) 4 Mg Tb, 1 TAB PO DAILY 11/09/23 Tenapanor HCl (Xphozah) 30 Mg Tab, 1 TAB PO BID 11/09/23 B-Complex W/ C & Folic Acid (Marisela-Tita Rx) Tab, 1 TAB PO DAILY 11/09/23 Lisinopril (Lisinopril) 20 Mg Tab, 1 TAB PO DAILY 11/09/23 Quetiapine Fumerate (Seroquel) 100 Mg Tab, 1 TAB PO DAILY 11/09/23 Hydralazine HCl (Hydralazine HCl) 25 Mg Tab, 1 TAB PO TID 11/07/23 Carvedilol (Carvedilol) 12.5 Mg Tab, 1 TAB PO BID 11/07/23 Oxycodone W/ Acetaminophen (Apap/Oxycodone) 1 Tab Tab, 10-325 MG PO QIDPRN PRN for back pain 08/31/21 Carisoprodol (Soma) 350 Mg Tab, 350 MG PO QID 03/07/19 Clopidogrel Bisulfate (CLOPIDOGREL) 75 Mg Tab, 75 MG PO DAILY 03/07/19 Levothyroxine Sodium (Levothyroxine Sodium) 200 Mcg Tab, 200 MCG PO QAM Dose verified against [facility] record 08/18/18 Docusate Sodium (DOCQLACE) 100 Mg Cap, 100 MG PO TID 08/05/18 Temazepam (Temazepam) 30 Mg Cap, 15 MG PO HS PRN for FOR INSOMNIA 04/17/18 Alprazolam (Xanax) 0.5 Mg Tb, 0.5 TAB PO BID 07/14/17 Cinacalcet Hydrochloride (Sensipar) 60 Mg Tab, 60 MG PO TID Per patient, she takes cinacalcet 60 mg tab, TID before meals. 01/08/16 Sevelamer Carbonate (Renvela) 800 Mg Tab, 2 TAB PO TID 01/08/16 Pantoprazole Sodium Sesquihydr (Protonix) 40 Mg Tab, 40 MG PO DAILY 01/08/16 Doxepin Hcl (Doxepin Hcl) 50 Mg Cap, 3 CAP PO QPM per patient 12/20/12 Atorvastatin Calcium (Lipitor) 10 Mg Tab, 1 TAB PO DAILY 12/20/12 Information Source: Patient Mode of Arrival: EMS Location: Right Extremity Location: Hip, Leg Timing: Came on: Gradually Prehospital treatment: None Severity: Moderate Able to Move Extremity: No Bear Weight: Limited (Pt is paralysed) Pain: Moderate Hand Dominance: Right Mechanism: Unknown Circumstances: Spontaneous Onset of Symptoms: Spontaneous Symptoms: Swelling DVT Risk Factors: NONE History of: Hip Fracture Associated signs and symptoms: None Past Medical History PAST MEDICAL HISTORY: CHF, COPD, HTN, VT Past Medical History (Other): Bipolar Disorder, Dialysis, Wasit Down Paralysis Surgical History: Tonsillectomy Surgical History (Other): Coronary Stent, Back Sx ASSET MANAGEMENT ANALYST History: No Pertinent ASSET MANAGEMENT ANALYST History Family History Family History: Reviewed,noncontributory to illness, Unknown Social History Smoker: Non-Smoker Alcohol: Denies ETOH Use Drugs: Denies Drug Use Lives In: Home Constitutional: reports: others (Hip pain/swelling); denies: chills, diaphoresis, fatigue, fever, malaise, sweats, weakness EENTM: denies: blurred vision, double vision, ear bleeding, ear discharge, ear drainage, ear pain, ear ringing, eye pain, eye redness, hearing loss, mouth pain, mouth swelling, nasal discharge, nose bleeding, nose congestion, nose pain, photophobia, tearing, throat pain, throat swelling, voice changes, others Respiratory: denies: cough, hemoptysis, orthopnea, SOB at rest, shortness of breath, SOB with excertion, stridor, wheezing, others Cardiovascular: denies: chest pain, dizzy spells, diaphoresis, Dyspnea on exertion, edema, irregular heart beat, left arm pain, lightheadedness, palpitations, PND, syncope, others Gastrointestinal: denies: abdomen distended, abdominal pain, blood streaked bowels, constipated, diarrhea, dysphagia, difficulty swallowing, hematemesis, melena, nausea, poor appetite, poor fluid intake, rectal bleeding, rectal pain, vomiting, others Genitourinary: denies: abnormal vagina bleeding, burning, dyspareunia, dysuria, flank pain, frequency, hematuria, incontinence, pain, , vagina discharge, urgency, others Neurological: denies: dizziness, fainting, headache, left sided numbness, left sided weakness, numbness, paresthesia, pre-existing deficit, right sided numbness, right sided weakness, seizure, speech problems, tingling, tremors, weakness, others Musculoskeletal: denies: back pain, gout, joint pain, joint swelling, muscle pain, muscle stiffness, neck pain, others Integumetry: denies: bruises, change in color, change in hair/nails, dryness, laceration, lesions, lumps, rash, wounds, others Allergic/Immunocompromised: denies: Difficulty Healing, Frequent Infections, Hives, Itching, others Hematologic/Lymphatic: denies: anemia, blood clots, easy bleeding, easy bruising, swollen glands, others Endocrine: denies: excessive hunger, excessive sweating, excessive thirst, excessive urination, flushing, intolerance to cold, intolerance to heat, unexplained weight gain, unexplained weight loss, others Psychiatric: denies: anxiety, bipolar disorder, depression, hopeless, panic disorder, schizophrenia, sleepless, suicidal, others All Other Systems: Reviewed and Negative Physical Exam General Appearance: Moderate Distress, Obese, Other (Bed ridden paraplegia) HEENT: Normal ENT Inspection, PERRL/EOMI, Pharynx Normal, TMs Normal Neck: Full Range of Motion, Non-Tender, Normal, Normal Inspection Respiratory: Chest Non-Tender, Lungs Clear, No Accessory Muscle Use, No Respiratory Distress, Normal Breath Sounds Cardiovascular: No Edema, No JVD, No Murmur, No Gallop, Normal Peripheral Pulses, Regular Rate/Rhythm Breast Exam: Deferred Gastrointestinal: No Organomegaly, Non Tender, No Pulsatile Mass, Normal Bowel Sounds, Soft Genitalia: Deferred Pelvic: Deferred Rectal: Deferred Extremities: Decreased range of motion, Pedal edema, Swelling, Tender, Other (Deformity right hip) Musculoskeletal : Location: Right Extremity Location: Femur, Hip, Pelvis Apperance: Normal, Swelling, Deformity, Limited ROM, Tenderness: Moderate Neurologic: Alert, Motor Weakness, Normal Affect, Normal Mood, No Sensory D eficits, Other (Paraplegia) Cerebellar Function: Normal Reflexes: Normal Skin: Dry, Normal Color, Warm Peripheral Pulses: 1+ carotid (R), 1+ carotid (L) Lymphatic: No Adenopathy Was a procedure done? Was a procedure done?: No EKG EKG : Pulse Rate (adult): 81 [place]: Normal Cardiac Rhythm: NSR Differential Diagnosis EXT Differential Diagnosis: Fracture, Dislocation, DJD X-Ray, Labs, Meds, VS Vital Signs Date Time Temp Pulse Resp B/P (MAP) Pulse Ox O2 Delivery O2 Flow Rate FiO2 12/07/24 13:55 88 10 181/106 12/07/24 12:00 82 13 173/96 (121) 96 12/07/24 11:49 81 12/07/24 11:46 81 12/07/24 10:26 90 12 139/71 (93) 96 12/07/24 09:36 98.0 100 18 124/74 (91) 94 98.0 Lab Test 12/07/24 11:40 Range/Units White Blood Count 2.8 L 4.4-10.8 10^3/uL Red Blood Count 2.95 L 4.0-5.20 10^6/uL Hemoglobin 9.3 L 12.2-16.2 g/dL Hematocrit 29.7 L 36.0-46.0 % Mean Corpuscular Volume 100.6 H 80.0-100.0 fL Mean Corpuscular Hemoglobin 31.4 28.0-32.0 pg Mean Corpuscular Hemoglobin Concent 31.3 L 32.0-36.0 g/dL Red Cell Distribution Width 18.7 H 11.8-14.3 % Platelet Count 184 140-450 10^3/uL Mean Platelet Volume 9.5 6.9-10.8 fL Neutrophils (%) (Auto) 40.6 37.0-80.0 % Lymphocytes (%) (Auto) 39.8 10.0-50.0 % Monocytes (%) (Auto) 14.8 H 0.0-12.0 % Eosinophils (%) (Auto) 4.2 0.0-7.0 % Basophils (%) (Auto) 0.6 0.0-2.0 % Neutrophils # (Auto) 1.1 L 1.6-8.6 10 ^3/uL Lymphocytes # (Auto) 1.1 0.4-5.4 10 ^3/uL Monocytes # (Auto) 0.4 0-1.3 10 ^3/uL Eosinophils # (Auto) 0.1 0-0.8 10 ^3/uL Basophils # (Auto) 0 0-0.2 10 ^3/uL Nucleated Red Blood Cells 0.1 % Prothrombin Time 11.6 9.3-11.8 sec Prothrombin Time INR 1.11 0.9-1.15 Activated Partial Thromboplast Time 30.3 24.5-34.5 SEC Sodium Level 141 136-145 mmol/L Potassium Level 4.8 3.5-5.1 mmol/L Chloride Level 106 98-107 mmol/L Carbon Dioxide Level 28 20-31 mmol/L Anion Gap 7 5-15 Blood Urea Nitrogen 36 H 9-23 mg/dL Creatinine 3.76 H 0.550-1.02 mg/dL Glomerular Filtration Rate Calc 12 >90 mL/min BUN/Creatinine Ratio 9.6 L 10.0-20.0 Serum Glucose 67 L 74-106 mg/dL Calcium Level 8.9 8.7-10.4 mg/dL Magnesium Level 2.1 1.6-2.6 mg/dL Total Bilirubin < 0.2 L 0.2-1.0 mg/dL Aspartate Amino Transferase (AST) 10 L 13-40 U/L Alanine Aminotransferase (ALT) < 9 7-40 U/L Alkaline Phosphatase 330 H 46-116 U/L Troponin I High Sensitivity 155 *H </=34 ng/L Total Protein 6.6 5.7-8.2 g/dL Albumin 3.0 L 3.2-4.8 g/dL Thyroid Stimulating Hormone (TSH) 0.05 L 0.55-4.78 uIU/mL Current Medications Medications (Trade) Dose Ordered Sig/Margarito Route Start Time Stop Time Status Last Admin Sodium Chloride 1,000 ml @ 150 mls/hr Q6H40M ONCE IV 12/07/24 10:45 12/07/24 17:24 12/07/24 11:10 Ondansetron HCl (Zofran) 4 mg ONCE ONCE IV 12/07/24 13:45 12/07/24 13:46 DC 12/07/24 13:55 Morphine Sulfate 2 mg ONCE ONCE IV 12/07/24 13:45 12/07/24 13:46 DC 12/07/24 13:55 X-Ray, Labs, Meds, VS Comment Course in the emergency department Patient came in complaining of right hip pain Patient is bed ridden and paraplegic from surgery low back Patient with a history of COPD hypertension high cholesterol GERD dialysis anxiety hypothyroidism congestive heart failure The chest x-ray is normal EKG shows normal sinus rhythm on eight Right x-ray shows osteopenia post traumatic deformity to the right hip displaced fracture to the right femur and also fractured the right in inferior pubic ramus Troponin elevated at 155 CBC 2800 with 40.6% neutrophils H&H 9.3 and 29.7 INR 1.11 TSH 0.05 Gif GFR at 12 Blood sugar 67 Alkaline phosphatase 330 Albumin 3.0 Magnesium 2.1 Patient will be admitted for further Time of 1ST Reevaluation: 11:00 Reevaluation 1ST: Unchanged Time of 2ND Reevaluation: 15:03 Reevaluation 2ND: Improved Patient Education/Counseling: Diagnosis, Treatment, Prognosis Family Education/Counseling: Diagnosis, Treatment, Prognosis, No Family Present Departure 1 Departure Time of Disposition: 15:05 Impression: Primary Impression: Anemia of chronic disease Additional Impressions: ESRD needing dialysis Right femoral fracture Qualified Codes: S72.061K - Displaced articular fracture of head of right femur, subsequent encounter for closed fracture with nonunion Troponin level elevated Decubitus ulcer Qualified Codes: L89.153 - Pressure ulcer of sacral region, stage 3 Musculoskeletal pain Iatrogenic hyperthyroidism Pelvic fracture Qualified Codes: S32.511G - Fracture of superior rim of right pubis, subsequent encounter for fracture with delayed healing Hypoglycemia Moderate protein malnutrition Disposition: ADMITTED INPATIENT Admit to: Tele Condition: Serious Critical Care Note Critical Care Time?: No Stability Stability form required: Yes Unstable for transfer: Telemetry monitoring (Telemetry monitoring required), Requires medication (Requires Med for stabilization) Heart Score Heart Score: Heart Score Response (Comments) Value History Slightly Suspicious 0 EKG Normal 0 Age >65 2 Risk Factors >3 or Hx ASHD 2 Troponin >3 x's Normal limit 2 Total 6 I personally scribed for PASTOR ROGERS MD ([email or web address]) on 12/07/24 at 10:54. Electronically submitted by Randy Catherine ([email or web address]). PASTOR ROGERS MD December 07, 2024 10:54
[2024-12-07] MEDS: SODIUM CHLORIDE 0.9% 1,000 ML IV ONE (11:10)
--- NOTE | 2024-12-07 11:28 | DVH ---
CHEST RADIOGRAPH Indication: hip dislocation Technique: Single frontal view of the chest was obtained COMPARISON: XY CHEST PORTABLE on DOS: 03/12/24, XY CHEST PORTABLE on DOS: 11/09/23, XY CHEST PORTABLE on DOS: 11/07/23, XY CHEST PORTABLE on DOS: 05/31/23, XY CHEST PORTABLE on DOS: 05/30/23 FINDINGS: Lines and Tubes: Tunneled left central venous catheter in satisfactory position. Lungs: Clear Pleura: No effusion. No pneumothorax. Cardiomediastinal contours: Cardiomegaly Bones: Thoracic spinal fixation hardware. IMPRESSION: No acute disease.
--- NOTE | 2024-12-07 11:29 | DVH ---
CLINICAL INDICATION: deformity TECHNIQUE: XY R HIP COMPLETE XRAY Comparison: None FINDINGS/IMPRESSION: : Severe diffuse osteopenia. Chronic posttraumatic or congenital deformity of the right hip joint. Mildly displaced fracture of the mid right femur. Chronic appearing fracture of the right inferior pubic ramus.
[2024-12-07 11:53] LABS: Basophils # (auto) 0 10 ^3/uL (0-0.2); Basophils % (auto) 0.6 % (0.0-2.0); Eosinophils # (auto) 0.1 10 ^3/uL (0-0.8); Lymphocytes # (auto) 1.1 10 ^3/uL (0.4-5.4); Monocytes # (auto) 0.4 10 ^3/uL (0-1.3); Nucleated Red Blood Cells % 0.1 %; Red Cell Distribution Width 18.7 % (11.8-14.3); White Blood Cell 2.8 10^3/uL (4.4-10.8)
[2024-12-07 11:55] LABS: Eosinophils % (auto) 4.2 % (0.0-7.0); Hematocrit 29.7 % (36.0-46.0); Hemoglobin 9.3 g/dL (12.2-16.2); Lymphocytes % (auto) 39.8 % (10.0-50.0); Mean Corpuscular Hemoglobin 31.4 pg (28.0-32.0); Mean Corpuscular Hgb Conc. 31.3 g/dL (32.0-36.0); Mean Corpuscular Volume 100.6 fL (80.0-100.0); Monocytes % (auto) 14.8 % (0.0-12.0); Neutrophils # (auto) 1.1 10 ^3/uL (1.6-8.6); Neutrophils % (auto) 40.6 % (37.0-80.0); Platelet Count (auto) 184 10^3/uL (140-450); Red Blood Cells 2.95 10^6/uL (4.0-5.20)
[2024-12-07 12:04] LABS: INR 1.11 (0.9-1.15); Partial Thromboplastin Time 30.3 SEC (24.5-34.5); Prothrombin Time 11.6 sec (9.3-11.8)
[2024-12-07 12:07] LABS: Anion Gap 7 (5-15); BUN/Creatinine Ratio 9.6 (10.0-20.0); Calcium 8.9 mg/dL (8.7-10.4); Carbon Dioxide 28 mmol/L (20-31); Chloride 106 mmol/L (98-107); Magnesium 2.1 mg/dL (1.6-2.6); Potassium 4.8 mmol/L (3.5-5.1); Sodium 141 mmol/L (136-145); Total Protein 6.6 g/dL (5.7-8.2)
[2024-12-07 12:12] LABS: Alanine Aminotransferase < 9 U/L (7-40); Alkaline Phosphatase 330 U/L (46-116); Aspartate Aminotransferase 10 U/L (13-40); Bilirubin, Total < 0.2 mg/dL (0.2-1.0); Blood Urea Nitrogen 36 mg/dL (9-23); Glucose 67 mg/dL (74-106)
[2024-12-07] MEDS ORDERED: MORPHINE SULFATE INJ 2 MG/ml SYRG IV ONE (13:45)
[2024-12-07] MEDS: ONDANSETRON HCL 4 MG/2 ML VIAL IV ONE (13:55)
[2024-12-07] MEDS: MORPHINE SULFATE 4 MG/ML SYR/VIAL IV ONE (13:55)
[2024-12-07 15:48] VITALS: PULSE 92; RESP 11; O2SAT 96
[2024-12-07] MEDS ORDERED: NITROGLYCERIN 0.4 MG SL TAB SL PRN ×2 (17:15)
[2024-12-07] MEDS ORDERED: MORPHINE SULFATE INJ 2 MG/ml SYRG IV PRN (17:15)
[2024-12-07] MEDS ORDERED: MORPHINE SULFATE 4 MG/ML SYR/VIAL IV PRN (17:15)
[2024-12-07] MEDS ORDERED: ACETAMINOPHEN 325 MG TAB PO PRN (17:15)
--- NOTE | 2024-12-07 17:22 | DVHHP2 ---
History of Present Illness Reason for Visit: Chest pain and right lower extremity pain History of Present Illness Patricia Arreguin is a 69-year-old female with past medical history of paraplegia, CAD, hypertension, COPD, CHF, bed-bound due to back surgery in 2018, NC, bipolar disorder, ESRD on HD (M/W/F) with Dr. Thornton, ventral umbilical hernia, tonsillectomy, hemorrhoids, and I and D on her decubitus ulcer who presents to the ED with chest pain and right lower extremity pain. Patient reports that the chest pain happened 2 days ago is a 7/10 sharp and intermittent nature. She st ates that lying down makes it better. Patient also endorses that she has right lower extremity pain states pain is 10/10 numb and constant for about 1 week. Patient states that she fell 1 year ago broke her hip and went to [facility] and they would not provide her surgery. Patient also states that he uses 2 L of oxygen via nasal cannula continuously. Family also at the bedside. Patient also reports that she does not take Xanax or Plavix. Patient denies any recent trauma or injury, recent sick contacts, recent travels, recent ingestion of spoiled food, abdominal pain, nausea, vomiting, diarrhea, fever, or chills. Patient reports that she does not walk. Patient reports that her solar energy installation manager is Dr. Ozzie Will and her voice data communications engineer Dr. Thornton. Cardiovascular: CAD, CHF, HTN, NC Pulmonary: COPD Psych: Bipolar Renal/: Chronic renal failure Past Medical History Bed-bound due to back surgery for cyst removal in 2018 Paraplegia Ventral umbilical hernia Hemorrhoids Past Surgical History: Other (I and D of decubitus ulcer Back surgery), Tonsillectomy Family History: Cancer, Other (Mom with a pacemaker and dad with colon cancer) Smoke: Quit ALCOHOL: none Drugs: None Lives: with Family Domestic Violence: Neg Review of Systems Cardiovascular: Chest Pain Musculoskeletal: leg pain Allergies: Coded Allergies: Baclofen (Verified Allergy, Unknown, 11/07/23) Exam Vital Signs Vital Signs Date Time Temp Pulse Resp B/P (MAP) Pulse Ox O2 Delivery O2 Flow Rate FiO2 12/07/24 15:48 92 11 96 Nasal Cannula* 2 28 12/07/24 15:00 187/89 (121) 12/07/24 09:36 98.0 98.0 General Appearance: Alert, Oriented X3, Cooperative, No acute distress HEENT: Atraumatic, PERRLA, EOMI, Mucous membr. moist/pink Respiratory: Normal air movement Cardiovascular: Regular rate, Normal S1, Normal S2, No murmurs Abdominal: Soft Neuro: Normal speech, Sensation intact Psych/Mental Status: Mental status NL, Mood NL Labs/Xrays Labs Test 12/07/24 11:40 Range/Units White Blood Count 2.8 L 4.4-10.8 10^3/uL Red Blood Count 2.95 L 4.0-5.20 10^6/uL Hemoglobin 9.3 L 12.2-16.2 g/dL Hematocrit 29.7 L 36.0-46.0 % Mean Corpuscular Volume 100.6 H 80.0-100.0 fL Mean Corpuscular Hemoglobin 31.4 28.0-32.0 pg Mean Corpuscular Hemoglobin Concent 31.3 L 32.0-36.0 g/dL Red Cell Distribution Width 18.7 H 11.8-14.3 % Platelet Count 184 140-450 10^3/uL Mean Platelet Volume 9.5 6.9-10.8 fL Neutrophils (%) (Auto) 40.6 37.0-80.0 % Lymphocytes (%) (Auto) 39.8 10.0-50.0 % Monocytes (%) (Auto) 14.8 H 0.0-12.0 % Eosinophils (%) (Auto) 4.2 0.0-7.0 % Basophils (%) (Auto) 0.6 0.0-2.0 % Neutrophils # (Auto) 1.1 L 1.6-8.6 10 ^3/uL Lymphocytes # (Auto) 1.1 0.4-5.4 10 ^3/uL Monocytes # (Auto) 0.4 0-1.3 10 ^3/uL Eosinophils # (Auto) 0.1 0-0.8 10 ^3/uL Basophils # (Auto) 0 0-0.2 10 ^3/uL Nucleated Red Blood Cells 0.1 % Prothrombin Time 11.6 9.3-11.8 sec Prothrombin Time INR 1.11 0.9-1.15 Activated Partial Thromboplast Time 30.3 24.5-34.5 SEC Sodium Level 141 136-145 mmol/L Potassium Level 4.8 3.5-5.1 mmol/L Chloride Level 106 98-107 mmol/L Carbon Dioxide Level 28 20-31 mmol/L Anion Gap 7 5-15 Blood Urea Nitrogen 36 H 9-23 mg/dL Creatinine 3.76 H 0.550-1.02 mg/dL Glomerular Filtration Rate Calc 12 >90 mL/min BUN/Creatinine Ratio 9.6 L 10.0-20.0 Serum Glucose 67 L 74-106 mg/dL Calcium Level 8.9 8.7-10.4 mg/dL Magnesium Level 2.1 1.6-2.6 mg/dL Total Bilirubin < 0.2 L 0.2-1.0 mg/dL Aspartate Amino Transferase (AST) 10 L 13-40 U/L Alanine Aminotransferase (ALT) < 9 7-40 U/L Alkaline Phosphatase 330 H 46-116 U/L Troponin I High Sensitivity 155 *H </=34 ng/L Total Protein 6.6 5.7-8.2 g/dL Albumin 3.0 L 3.2-4.8 g/dL Thyroid Stimulating Hormone (TSH) 0.05 L 0.55-4.78 uIU/mL CHEST RADIOGRAPH Indication: hip dislocation Technique: Single frontal view of the chest was obtained COMPARISON: XY CHEST PORTABLE on DOS: 03/12/24, XY CHEST PORTABLE on DOS: 11/09/23, XY CHEST PORTABLE on DOS: 11/07/23, XY CHEST PORTABLE on DOS: 05/31/23, XY CHEST PORTABLE on DOS: 05/30/23 FINDINGS: Lines and Tubes: Tunneled left central venous catheter in satisfactory position. Lungs: Clear Pleura: No effusion. No pneumothorax. Cardiomediastinal contours: Cardiomegaly Bones: Thoracic spinal fixation hardware. IMPRESSION: No acute disease. CLINICAL INDICATION: deformity TECHNIQUE: XY R HIP COMPLETE XRAY Comparison: None FINDINGS/IMPRESSION: : Severe diffuse osteopenia. Chronic posttraumatic or congenital deformity of the right hip joint. Mildly displaced fracture of the mid right femur. Chronic appearing fracture of the right inferior pubic ramus. 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 Chronic appearing fracture of the right inferior pubic ramus Hypertensive urgency Acute on chronic renal failure on dialysis (M/W/F) Acute hypoxic respiratory failure History of paraplegia History of CAD, patient denies and claims she does not have any stents in her heart History of hypertension History of COPD History of CHF History of bed-bound due to back surgery in 2018 for cyst removal History of NC History of bipolar disease History of ventral umbilical hernia History of tonsillectomy History of hemorrhoids History of I&D for decubitus ulcer Plan Admit to tele Supportive oxygen Pain management Antiemetics Chest x-ray noted NS 1 L given ED Wound consult for sacral wound EKG Trend troponins UA TSH PT/PTT Mag level X-ray right hip noted Aspirin plus statin Echo ordered Lipid panel UDS A1c Bilateral lower extremity venous ultrasound ordered Strict I&Os Daily weights Diet Home medications reconciled DVT prophylaxis-Lovenox PUD prophylaxis-PPIs Discussed plan of care with patient, patient's family, and nurse Cardiac consult Ortho consult Nephrology consult Plan discussed with: Patient, Other My Orders Orders - ENEIDA DOBBS COMMANDER POLICE RESERVES Procedure Category Date Status Time * Cardiology Consult CONS 12/07/24 Transmitted 17:12 * Orthopedic Consult CONS 12/07/24 Transmitted 17:12 *Dr. Thornton Group CONS 12/07/24 Transmitted -[place] 17:12 Admit ADMIT 12/07/24 Transmitted 17:12 Code Status CODE 12/07/24 Transmitted 17:12 Vital Signs JODI 12/07/24 In Process 17:12 Instrument Worker JODI 12/07/24 In Process 17:12 Cardiac DIET 12/07/24 Transmitted Diet-2gna,Lofat,Lochol Dinner Aspirin Tablet PHA 12/08/24 Logged 10:00 Atorvastatin (Lipitor) PHA 12/07/24 Logged 22:00 Morphine Sulfate PHA 12/07/24 Logged Injection 17:15 Acetaminophen Tablet PHA 12/07/24 Logged (Tylenol Tablet) 17:15 Oxygen Per JODI 12/07/24 In Process Standardized Proced Complete Blood Count LAB 12/08/24 Verified 04:00 Basic Metabolic Panel LAB 12/08/24 Verified 04:00 Magnesium LAB 12/08/24 Verified 04:00 Lipid Panel LAB 12/08/24 Verified 04:00 Echo 2d Mode Cardiac US 12/07/24 Logged DOP 17:12 Nitroglycerin PHA 12/07/24 Logged Sublingual (Ntrostat 17:15 Ondansetron Hcl PHA 12/07/24 Logged (Zofran) 17:15 Electrocardigram EKG 12/08/24 Logged 04:00 Troponin-I Hs LAB 12/07/24 Logged 17:12 Cardiac JODI 12/07/24 In Process Rehabilitation - Outpa Nitroglycerin PHA 12/07/24 Logged Sublingual (Ntrostat 17:15 Morphine Sulfate PHA 12/07/24 Logged Injection 17:15 Stat Ekg For Chest JODI 12/07/24 In Process Pain 17:12 Notify Md Of Changes JODI 12/07/24 In Process From Base 17:12 Cocktail Lounge Manager For JODI 12/07/24 In Process 24 Hours 17:12 Emergency Dysrhythmia JODI 12/07/24 In Process Protocol 17:12 Rhythm Strips Once JODI 12/07/24 In Process Every Shift 17:12 Oxygen By Nasal RT 12/07/24 Transmitted Cannula 17:12 Hemoglobin A1c LAB 12/07/24 Logged 17:12 Thyroid Stimulating LAB 12/07/24 Logged Hormone 17:12 Drug Screen LAB 12/07/24 Logged 17:12 Ascorbic Acid Tablet PHA 12/07/24 Verified (Vitamin C Tablet) 22:00 B-Complex W/ C & PHA 12/08/24 Verified Folic Tablet 10:00 Carisoprodol Tablet PHA 12/07/24 Verified (Soma Tablet) 18:00 Carvedilol Tablet PHA 12/07/24 Verified (Coreg Tablet) 22:00 Hydralazine Hcl PHA 12/07/24 Verified Tablet (Apresoline 22:00 Pantoprazole Tablet PHA 12/08/24 Verified (Protonix Tablet) 10:00 Quetiapine Fumarate PHA 12/08/24 Verified Tablet (Seroquel Tab 10:00 (Nf) Cinacalcet PHA 12/07/24 Verified Hydrochloride 22:00 (Nf) Doxepin Hcl PHA 12/07/24 Verified 18:00 (Nf) Isosorbide PHA 12/08/24 Verified Mononitrate 10:00 (Nf) Levothyroxine PHA 12/08/24 Verified Sodium 07:00 (Nf) Nifedipine PHA 12/08/24 Verified (Nifedipine Er) 10:00 (Nf) Sevelamer PHA 12/07/24 Verified Carbonate (Renvela) 22:00 (Nf) Tenapanor Hcl PHA 12/07/24 Verified (Xphozah) 22:00 Date of Service: December 07, 2024 Billing Provider: ENEIDA DOBBS Common Visit Codes: [id number] INP/OBS CARE (HIGH) ENEIDA DOBBS December 07, 2024 17:22
--- NOTE | 2024-12-07 19:07 | DVH ---
Bilateral lower extremity venous duplex Clinical History: r/o dvt Comparison: BLDVT on DOS: 08/21/22, BI LOWER DVT on DOS: 08/21/22 Technique: Duplex Doppler evaluation of the deep venous systems of both lower extremities from the common femora l veins to the popliteal veins including color Doppler and spectral/pulsed waveform analysis was perf ormed. Findings: RIGHT SIDE: Common femoral vein demonstrates appropriate compressibility and waveform variability. There is compressibility/patency of the great saphenous vein at the proximal thigh. Femoral vein demonstrates appropriate compressibility and waveform variability. Deep femoral vein demonstrates appropriate compressibility and waveform variability. Popliteal vein is not adequately visualized. Posterior tibial vein is patent. LEFT SIDE: Common femoral vein demonstrates appropriate compressibility and waveform variability. There is compressibility/patency of the great saphenous vein at the proximal thigh. Femoral vein demonstrates appropriate compressibility and waveform variability. Deep femoral vein demonstrates appropriate compressibility and waveform variability. Popliteal vein is not adequately visualized. Posterior tibial vein is patent. Impression: No evidence of right or left femoropopliteal venous thrombosis. Bilateral popliteal veins not adequat pippa visualized.
[2024-12-07 19:20] VITALS: PULSE 100; RESP 11; O2SAT 94
[2024-12-07] MEDS: SEVELAMER 800 MG TAB PO ONE (20:21)
[2024-12-07] MEDS: CARISOPRODOL 350 MG TAB PO SCH (20:21)
--- NOTE | 2024-12-07 20:32 | ECG ---
[facility] Test Date: 2024-12-07 Test Time: 11:46:07 Pat Name: RACQUEL SAEZ Department: ED Room: [address] [place] [address] Gender: F Head Trimmer: STARLA : 1955 Requested By: PASTOR ROGERS Order Number: [id number] Reading MD: Kris Carlisle Measurements Intervals [place] Rate: 81 P: 43 [place]: 158 QRS: -1 QRSD: 95 T: 44 QT: 388 QTc: 451 Interpretive Statements Sinus rhythm Baseline wander in lead(s) I,II,aVR,aVF Electronically Signed On 12-09-2024 22:19:34 PDT by Kris Carlisle Please click the below link to view image of tracing.
[2024-12-07] MEDS: hydrALAZINE HCL 20 MG/ML VL IV PRN (20:44)
[2024-12-07] MEDS: MORPHINE SULFATE 4 MG/ML SYR/VIAL IV PRN (20:46)
[2024-12-07] MEDS: ASCORBIC ACID 500 MG TAB PO SCH (22:27)
[2024-12-07] MEDS: hydrALAZINE HCL 25 MG TAB PO SCH (22:27)
[2024-12-07] MEDS: CARVEDILOL 12.5 MG TAB PO SCH (22:27)
[2024-12-07] MEDS: ATORVASTATIN 20 MG TAB PO SCH (22:27)
[2024-12-07] MEDS: DOXEPIN 50 MG PO SCH (22:32)
[2024-12-07] MEDS: CINACALCET HYDROCHLORIDE 30 MG TAB PO SCH (22:32)
[2024-12-07] MEDS: ONDANSETRON HCL 4 MG/2 ML VIAL IV PRN (22:53)
--- NOTE | 2024-12-07 23:45 | DVHINCON2 ---
Date of service: December 07, 2024 Referring Physician Salma Reason for Consultation Elevated troponin History of Present Illness This is a 69 year old female with a PMH of Bipolar Disorder, Dialysis, Waist down paralysis, ND, Angina, CHF, HTN, COPD who presented to the ED with complaints of waist pain. Patient also reported swollen hips due from having a broken hip. Patient endorses having right lower extremity pain with swelling. Patient also endorses left sided chest pain. EKG is NSR at 81. HGB 9.3, HCT 29.7, BUN 36, MRI TECHNICIAN 3.76, TROP 155 > 162. Chest x-ray shows NAD. Right hip x-ray revealed severe diffuse osteopenia, chronic posttraumatic or congenital deformity of the right hip joint, mildly displaced fracture of the mid right femur, chronic appearing fracture of the right inferior pubic ramus. Patient was admitted to the hospital. I am asked to consult on this patient. Family History: Alcoholism G8 MOTHER Cancer G8 MOTHER (BREAST) G8 FATHER (PROSTATE) G8 SISTER (BREAST) G8 BROTHER G8 BROTHER G8 BROTHER FH: breast cancer G8 MOTHER, Onset:Unknown FH: prostate cancer Family history: Cardiovascular disease G8 FATHER Allergies: Coded Allergies: Baclofen (Verified Allergy, Unknown, 11/07/23) Home Meds Active Scripts Ampicillin (Ampicillin) 500 Mg Cap, 1 CAP PO TID for 10 Days, #30 CAP Prov:HATTIE ROLLINS NP 03/16/24 Sulfamethoxazole W/Trimethopri (Bactrim Ds Tablet) 1 Tab Tb, 1 TAB PO BID for 10 Days, #20 TAB Prov:HATTIE ROLLINS NP 03/16/24 Albuterol Sulfate (Albuterol Sulfate) 0.083 % Neb, 1 VIAL NEB Q4HPRN, #50 VIAL 2 Refills Prov:LUANNE GILL MD 11/10/23 Isosorbide Mononitrate (Isosorbide Mononitrate Er) 30 Mg Tab, 1 TAB PO DAILY, #30 TAB Prov:AZAR ALBA MD 09/01/21 Nifedipine (Nifedipine Er) 90 Mg Tab, 1 TAB PO DAILY, #30 TAB Prov:AZAR ALBA MD 09/01/21 Ascorbic Acid (VITAMIN C TABLET) 500 Mg Tb, 500 MG PO BID for 30 Days Prov:DASHAWN PELAEZ MD 09/12/18 Reported Medications Fluconazole (Fluconazole) 150 Mg Tab, 1 TAB PO DAILY for 7 Days, #7 MG 11/09/23 Triamcinolone Acetonide (Kenalog) 1 Applic Ap, 1 APPLIC TOP BID 11/09/23 Ondansetron Odt 4MG Tab (ZOFRAN PO) 4 Mg Tb, 1 TAB PO DAILY 11/09/23 Tenapanor HCl (Xphozah) 30 Mg Tab, 1 TAB PO BID 11/09/23 B-Complex W/ C & Folic Acid (Marisela-Tita Rx) Tab, 1 TAB PO DAILY 11/09/23 Lisinopril (Lisinopril) 20 Mg Tab, 1 TAB PO DAILY 11/09/23 Quetiapine Fumerate (Seroquel) 100 Mg Tab, 1 TAB PO DAILY 11/09/23 Hydralazine HCl (Hydralazine HCl) 25 Mg Tab, 1 TAB PO TID 11/07/23 Carvedilol (Carvedilol) 12.5 Mg Tab, 1 TAB PO BID 11/07/23 Oxycodone W/ Acetaminophen (Apap/Oxycodone) 1 Tab Tab, 10-325 MG PO QIDPRN PRN for back pain 08/31/21 Carisoprodol (Soma) 350 Mg Tab, 350 MG PO QID 03/07/19 Clopidogrel Bisulfate (CLOPIDOGREL) 75 Mg Tab, 75 MG PO DAILY 03/07/19 Levothyroxine Sodium (Levothyroxine Sodium) 200 Mcg Tab, 200 MCG PO QAM Dose verified against [facility] record 08/18/18 Docusate Sodium (DOCQLACE) 100 Mg Cap, 100 MG PO TID 08/05/18 Temazepam (Temazepam) 30 Mg Cap, 15 MG PO HS PRN for FOR INSOMNIA 04/17/18 Alprazolam (Xanax) 0.5 Mg Tb, 0.5 TAB PO BID 07/14/17 Cinacalcet Hydrochloride (Sensipar) 60 Mg Tab, 60 MG PO TID Per patient, she takes cinacalcet 60 mg tab, TID before meals. 01/08/16 Sevelamer Carbonate (Renvela) 800 Mg Tab, 2 TAB PO TID 01/08/16 Pantoprazole Sodium Sesquihydr (Protonix) 40 Mg Tab, 40 MG PO DAILY 01/08/16 Doxepin Hcl (Doxepin Hcl) 50 Mg Cap, 3 CAP PO QPM per patient 12/20/12 Atorvastatin Calcium (Lipitor) 10 Mg Tab, 1 TAB PO DAILY 12/20/12 Current Medications Current Medications Medications (Trade) Dose Ordered Sig/Margarito Route PRN Reason Start Time Stop Time Status Last Admin Aspirin 81 mg DAILY PO 12/08/24 10:00 UNV Atorvastatin Calcium (Lipitor) 40 mg HS PO 12/07/24 22:00 UNV Morphine Sulfate 2 mg Q30MP PRN IV FOR CHEST PAIN 12/07/24 17:15 UNV Acetaminophen (Tylenol Tablet) 650 mg Q6HP PRN PO MILD PAIN (1-3 PAIN SCALE) 12/07/24 17:15 UNV Nitroglycerin (Ntrostat Sublingual) 0.4 mg Q5MINP PRN SL FOR CHEST PAIN 12/07/24 17:15 UNV Ondansetron HCl (Zofran) 4 mg Q4HP PRN IV NAUSEA / VOMITING 12/07/24 17:15 UNV Nitroglycerin (Ntrostat Sublingual) 0.4 mg Q5MINP PRN SL FOR CHEST PAIN 12/07/24 17:15 UNV Morphine Sulfate 2 mg Q30M PRN IV FOR CHEST PAIN 12/07/24 17:15 UNV Ascorbic Acid (Vitamin C Tablet) 500 mg BID PO 12/07/24 22:00 UNV Multivit/Ca Carb/ B Cmplx/FA/Prenat (Nephro-Tita Tablet) 1 tab DAILY PO 12/08/24 10:00 UNV Carisoprodol (Soma Tablet) 350 mg QID PO 12/07/24 18:00 UNV Carvedilol (Coreg Tablet) 12.5 mg BID PO 12/07/24 22:00 UNV Hydralazine HCl (Apresoline Tablet) 25 mg TID PO 12/07/24 22:00 UNV Pantoprazole Sodium (Protonix Tablet) 40 mg DAILY PO 12/08/24 10:00 UNV Quetiapine Fumarate (SEROquel TABLET) 100 mg DAILY PO 12/08/24 10:00 UNV Patient Own Medication 60 mg TID PO 12/07/24 22:00 UNV Patient Own Medication 3 cap QPM PO 12/07/24 18:00 UNV Patient Own Medication 1 tab DAILY PO 12/08/24 10:00 UNV Patient Own Medication 200 mcg QAM PO 12/08/24 07:00 UNV Patient Own Medication 1 tab DAILY PO 12/08/24 10:00 UNV Patient Own Medication 2 tab TID PO 12/07/24 22:00 UNV Patient Own Medication 1 tab BID PO 12/07/24 22:00 UNV Enoxaparin Sodium (Lovenox) 40 mg DAILY SC 12/08/24 10:00 UNV Review of Systems Constitutional: reports: others (Hip pain/swelling); denies: chills, diaphoresis, fatigue, fever, malaise, sweats, weakness EENTM: denies: blurred vision, double vision, ear bleeding, ear discharge, ear drainage, ear pain, ear ringing, eye pain, eye redness, hearing loss, mouth pain, mouth swelling, nasal discharge, nose bleeding, nose congestion, nose pain, photophobia, tearing, throat pain, throat swelling, voice changes, others Respiratory: denies: cough, hemoptysis, orthopnea, SOB at rest, shortness of breath, SOB with excertion, stridor, wheezing, others Cardiovascular: denies: chest pain, dizzy spells, diaphoresis, Dyspnea on exertion, edema, irregular heart beat, left arm pain, lightheadedness, palpitations, PND, syncope, others Gastrointestinal: denies: abdomen distended, abdominal pain, blood streaked bowels, constipated, diarrhea, dysphagia, difficulty swallowing, hematemesis, melena, nausea, poor appetite, poor fluid intake, rectal bleeding, rectal pain, vomiting, others Genitourinary: denies: abnormal vagina bleeding, burning, dyspareunia, dysuria, flank pain, frequency, hematuria, incontinence, pain, , vagina discharge, urgency, others Neurological: denies: dizziness, fainting, headache, left sided numbness, left sided weakness, numbness, paresthesia, pre-existing deficit, right sided numbness, right sided weakness, seizure, speech problems, tingling, tremors, weakness, others Musculoskeletal: denies: back pain, gout, joint pain, joint swelling, muscle pain, muscle stiffness, neck pain, others Integumetry: denies: bruises, change in color, change in hair/nails, dryness, laceration, lesions, lumps, rash, wounds, others Allergic/Immunocompromised: denies: Difficulty Healing, Frequent Infections, Hives, Itching, others Hematologic/Lymphatic: denies: anemia, blood clots, easy bleeding, easy bruising, swollen glands, others Endocrine: denies: excessive hunger, excessive sweating, excessive thirst, excessive urination, flushing, intolerance to cold, intolerance to heat, unexplained weight gain, unexplained weight loss, others Psychiatric: denies: anxiety, bipolar disorder, depression, hopeless, panic disorder, schizophrenia, sleepless, suicidal, others All Other Systems: Reviewed and Negative Vital Signs Vital Signs Date Time Temp Pulse Resp B/P (MAP) Pulse Ox O2 Delivery O2 Flow Rate FiO2 12/07/24 17:53 93 13 205/105 (138) 95 12/07/24 15:48 Nasal Cannula* 2 28 12/07/24 09:36 98.0 98.0 Physical Exam GENERAL: Alert and oriented x 3. No acute distress. Bedridden, Paraplegia. EYES: PERRL, EOMI. Anicteric. HENT: Moist mucous membranes. LUNGS: Clear to auscultation bilaterally. CARDIOVASCULAR: Regular rate and rhythm. ABDOMEN: Soft, nontender and nondistended. EXTREMITIES: Right hip deformity, decreased ROM. NEUROLOGIC: No focal neurological deficits. SKIN: Warm, dry. Labs/Diagnostic Data Labs Test 12/07/24 17:35 12/07/24 11:40 12/07/24 11:30 Range/Units White Blood Count 2.8 L 4.4-10.8 10^3/uL Red Blood Count 2.95 L 4.0-5.20 10^6/uL Hemoglobin 9.3 L 12.2-16.2 g/dL Hematocrit 29.7 L 36.0-46.0 % Mean Corpuscular Volume 100.6 H 80.0-100.0 fL Mean Corpuscular Hemoglobin 31.4 28.0-32.0 pg Mean Corpuscular Hemoglobin Concent 31.3 L 32.0-36.0 g/dL Red Cell Distribution Width 18.7 H 11.8-14.3 % Platelet Count 184 140-450 10^3/uL Mean Platelet Volume 9.5 6.9-10.8 fL Neutrophils (%) (Auto) 40.6 37.0-80.0 % Lymphocytes (%) (Auto) 39.8 10.0-50.0 % Monocytes (%) (Auto) 14.8 H 0.0-12.0 % Eosinophils (%) (Auto) 4.2 0.0-7.0 % Basophils (%) (Auto) 0.6 0.0-2.0 % Neutrophils # (Auto) 1.1 L 1.6-8.6 10 ^3/uL Lymphocytes # (Auto) 1.1 0.4-5.4 10 ^3/uL Monocytes # (Auto) 0.4 0-1.3 10 ^3/uL Eosinophils # (Auto) 0.1 0-0.8 10 ^3/uL Basophils # (Auto) 0 0-0.2 10 ^3/uL Nucleated Red Blood Cells 0.1 % Prothrombin Time 11.6 9.3-11.8 sec Prothrombin Time INR 1.11 0.9-1.15 Activated Partial Thromboplast Time 30.3 24.5-34.5 SEC Sodium Level 141 136-145 mmol/L Potassium Level 4.8 3.5-5.1 mmol/L Chloride Level 106 98-107 mmol/L Carbon Dioxide Level 28 20-31 mmol/L Anion Gap 7 5-15 Blood Urea Nitrogen 36 H 9-23 mg/dL Creatinine 3.76 H 0.550-1.02 mg/dL Glomerular Filtration Rate Calc 12 >90 mL/min BUN/Creatinine Ratio 9.6 L 10.0-20.0 Serum Glucose 67 L 74-106 mg/dL Calcium Level 8.9 8.7-10.4 mg/dL Magnesium Level 2.1 1.6-2.6 mg/dL Total Bilirubin < 0.2 L 0.2-1.0 mg/dL Aspartate Amino Transferase (AST) 10 L 13-40 U/L Alanine Aminotransferase (ALT) < 9 7-40 U/L Alkaline Phosphatase 330 H 46-116 U/L Total Protein 6.6 5.7-8.2 g/dL Albumin 3.0 L 3.2-4.8 g/dL Thyroid Stimulating Hormone (TSH) 0.05 L 0.55-4.78 uIU/mL Hemoglobin A1c 4.0 <5.7 % A1C Assessment NSTEMI. Anemia. Right lower extremity pain. Severe diffuse osteopenia. 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 Chronic appearing fracture of the right inferior pubic ramus. Hypertensive urgency. ESRD. Acute hypoxic respiratory failure. History of paraplegia. History of CAD. COPD. CHF. Bipolar disease. History of ND. Plan/Recommendation I agree with your ongoing assessment and care of plan. Telemetry reviewed. Echocardiogram. Aspirin,Lipitor. Coreg, Hydralazine. IV Hydralazine for SBP >150. DVT prophylactics. Morphine for pain management. Additional plan as per the hospital course. A total of 45 minutes was spent reviewing the patient record, examining the patient, making a diagnostic and therapeutic plan, discussing this plan with medical personnel, following up on diagnostic studies and following the patient for clinical stability excluding any and all procedures. At least 50% of this time was spent in direct, [id number] contact. Plan discussed with: Patient WENDY COREAS MD December 07, 2024 18:17
[2024-12-08] MEDS: cloNIDine HCL 0.1 MG TAB PO PRN (00:52)
[2024-12-08 05:56] LABS: Hemoglobin 9.5 g/dL (12.2-16.2); White Blood Cell 4.1 10^3/uL (4.4-10.8)
[2024-12-08 05:58] LABS: Anion Gap 10 (5-15); Carbon Dioxide 24 mmol/L (20-31); Chloride 105 mmol/L (98-107); Mean Corpuscular Hemoglobin 31.7 pg (28.0-32.0); Mean Corpuscular Hgb Conc. 30.8 g/dL (32.0-36.0); Mean Corpuscular Volume 102.7 fL (80.0-100.0); Platelet Count (auto) 191 10^3/uL (140-450); Potassium 4.7 mmol/L (3.5-5.1); Red Blood Cells 3.01 10^6/uL (4.0-5.20); Red Cell Distribution Width 18.8 % (11.8-14.3); Sodium 139 mmol/L (136-145)
[2024-12-08 05:59] LABS: Calcium 9.4 mg/dL (8.7-10.4)
[2024-12-08 06:03] LABS: Glucose 75 mg/dL (74-106)
[2024-12-08 06:04] LABS: BUN/Creatinine Ratio 9.2 (10.0-20.0); Blood Urea Nitrogen 39 mg/dL (9-23); LDL Cholesterol 48 mg/dL (< 100); Magnesium 2.2 mg/dL (1.6-2.6); Triglycerides 83 mg/dL (< 150)
[2024-12-08 06:05] LABS: Cholesterol 144 mg/dL (< 200); HDL Cholesterol 63 mg/dL (40-59)
[2024-12-08 06:15] LABS: Band Neutrophils % (manual) 0; Basophils % (manual) 0 (0.0-2.0); Blast Cells 0; Metamyelocytes % 0; Myelocytes % 0; Promyelocytes % 0; Reactive Lymphocytes 0
[2024-12-08 06:33] LABS: Eosinophils % (manual) 5 (0-7); Lymphocytes % (manual) 36 (10.0-50.0); Monocytes % (manual) 14 (0-12); Platelet Estimate Adequate
[2024-12-08] MEDS: LEVOTHYROXINE SODIUM 100 MCG TAB PO SCH (06:46)
[2024-12-08 07:27] VITALS: RESP 16; O2SAT 94
[2024-12-08] MEDS: SEVELAMER 800 MG TAB PO SCH (08:00)
[2024-12-08] MEDS: SODIUM CHL 0.9% 1000 ML BAG XX ONE (08:30)
[2024-12-08 08:46] LABS: % Iron Saturation 24.8 % (15-50)
--- NOTE | 2024-12-08 09:17 | DVHINCON2 ---
Date of service: December 08, 2024 Referring Physician Hospital Reason for Consultation End-stage renal disease History of Present Illness 69-year-old female with past medical history end-stage renal disease on hemodialysis, history of chronic back pain, history of vertebral fractures in the past, history of osteopenia, history of substance abuse and chronic opioid dependence, history of multiple falls in the past presents to the hospital after missing hemodialysis treatment due to right leg pain. Patient is noted to have mid femoral neck fracture Nephrology consulted for hemodialysis treatment Allergies: Coded Allergies: Baclofen (Verified Allergy, Unknown, 11/07/23) Home Meds Active Scripts Ampicillin (Ampicillin) 500 Mg Cap, 1 CAP PO TID for 10 Days, #30 CAP Prov:HATTIE ROLLINS STEAM DRIER TENDER 03/16/24 Sulfamethoxazole W/Trimethopri (Bactrim Ds Tablet) 1 Tab Tb, 1 TAB PO BID for 10 Days, #20 TAB Prov:HATTIE ROLLINS STEAM DRIER TENDER 03/16/24 Albuterol Sulfate (Albuterol Sulfate) 0.083 % Neb, 1 VIAL NEB Q4HPRN, #50 VIAL 2 Refills Prov:LUANNE GILL MD 11/10/23 Isosorbide Mononitrate (Isosorbide Mononitrate Er) 30 Mg Tab, 1 TAB PO DAILY, #30 TAB Prov:AZAR ALBA MD 09/01/21 Nifedipine (Nifedipine Er) 90 Mg Tab, 1 TAB PO DAILY, #30 TAB Prov:AZAR ALBA MD 09/01/21 Ascorbic Acid (VITAMIN C TABLET) 500 Mg Tb, 500 MG PO BID for 30 Days Prov:DSAHAWN PELAEZ MD 09/12/18 Reported Medications Fluconazole (Fluconazole) 150 Mg Tab, 1 TAB PO DAILY for 7 Days, #7 MG 11/09/23 Triamcinolone Acetonide (Kenalog) 1 Applic Ap, 1 APPLIC TOP BID 11/09/23 Ondansetron Odt 4MG Tab (ZOFRAN PO) 4 Mg Tb, 1 TAB PO DAILY 11/09/23 Tenapanor HCl (Xphozah) 30 Mg Tab, 1 TAB PO BID 11/09/23 B-Complex W/ C & Folic Acid (Marisela-Tita Rx) Tab, 1 TAB PO DAILY 11/09/23 Lisinopril (Lisinopril) 20 Mg Tab, 1 TAB PO DAILY 11/09/23 Quetiapine Fumerate (Seroquel) 100 Mg Tab, 1 TAB PO DAILY 11/09/23 Hydralazine HCl (Hydralazine HCl) 25 Mg Tab, 1 TAB PO TID 11/07/23 Carvedilol (Carvedilol) 12.5 Mg Tab, 1 TAB PO BID 11/07/23 Oxycodone W/ Acetaminophen (Apap/Oxycodone) 1 Tab Tab, 10-325 MG PO QIDPRN PRN for back pain 08/31/21 Carisoprodol (Soma) 350 Mg Tab, 350 MG PO QID 03/07/19 Clopidogrel Bisulfate (CLOPIDOGREL) 75 Mg Tab, 75 MG PO DAILY 03/07/19 Levothyroxine Sodium (Levothyroxine Sodium) 200 Mcg Tab, 200 MCG PO QAM Dose verified against [facility] record 08/18/18 Docusate Sodium (DOCQLACE) 100 Mg Cap, 100 MG PO TID 08/05/18 Temazepam (Temazepam) 30 Mg Cap, 15 MG PO HS PRN for FOR INSOMNIA 04/17/18 Alprazolam (Xanax) 0.5 Mg Tb, 0.5 TAB PO BID 07/14/17 Cinacalcet Hydrochloride (Sensipar) 60 Mg Tab, 60 MG PO TID Per patient, she takes cinacalcet 60 mg tab, TID before meals. 01/08/16 Sevelamer Carbonate (Renvela) 800 Mg Tab, 2 TAB PO TID 01/08/16 Pantoprazole Sodium Sesquihydr (Protonix) 40 Mg Tab, 40 MG PO DAILY 01/08/16 Doxepin Hcl (Doxepin Hcl) 50 Mg Cap, 3 CAP PO QPM per patient 12/20/12 Atorvastatin Calcium (Lipitor) 10 Mg Tab, 1 TAB PO DAILY 12/20/12 Current Medications Current Medications Medications (Trade) Dose Ordered Sig/Margarito Route PRN Reason Start Time Stop Time Status Last Admin Aspirin 81 mg DAILY PO 12/08/24 10:00 Atorvastatin Calcium (Lipitor) 40 mg HS PO 12/07/24 22:00 12/07/24 22:27 Morphine Sulfate 2 mg Q30MP PRN IV FOR CHEST PAIN 12/07/24 17:15 12/07/24 18:53 DC Acetaminophen (Tylenol Tablet) 650 mg Q6HP PRN PO MILD PAIN (1-3 PAIN SCALE) 12/07/24 17:15 Nitroglycerin (Ntrostat Sublingual) 0.4 mg Q5MINP PRN SL FOR CHEST PAIN 12/07/24 17:15 12/07/24 18:53 DC Ondansetron HCl (Zofran) 4 mg Q4HP PRN IV NAUSEA / VOMITING 12/07/24 17:15 12/07/24 22:53 Nitroglycerin (Ntrostat Sublingual) 0.4 mg Q5MINP PRN SL FOR CHEST PAIN 12/07/24 17:15 Morphine Sulfate 2 mg Q30M PRN IV FOR CHEST PAIN 12/07/24 17:15 Ascorbic Acid (Vitamin C Tablet) 500 mg BID PO 12/07/24 22:00 12/07/24 22:27 Multivit/Ca Carb/ B Cmplx/FA/Prenat (Nephro-Tita Tablet) 1 tab DAILY PO 12/08/24 10:00 Carisoprodol (Soma Tablet) 350 mg QID PO 12/07/24 18:00 12/08/24 05:36 Carvedilol (Coreg Tablet) 12.5 mg BID PO 12/07/24 22:00 12/07/24 22:27 Hydralazine HCl (Apresoline Tablet) 25 mg TID PO 12/07/24 22:00 12/08/24 05:36 Pantoprazole Sodium (Protonix Tablet) 40 mg DAILY PO 12/08/24 10:00 Quetiapine Fumarate (SEROquel TABLET) 100 mg DAILY PO 12/08/24 10:00 Cinacalcet (Sensipar) 60 mg TID PO 12/07/24 22:00 Patient Own Medication 3 cap HS PO 12/07/24 22:00 Isosorbide Mononitrate (Imdur Er Tablet) 30 mg DAILY PO 12/08/24 10:00 Levothyroxine Sodium (Synthroid Tablet) 200 mcg QAM PO 12/08/24 07:00 12/08/24 06:46 Nifedipine (Procardia Xl (Time-Release)) 90 mg DAILY PO 12/08/24 10:00 Sevelamer HCl (Renagel) 1,600 mg TIDWM PO 12/08/24 08:00 Patient Own Medication 1 tab BID PO 12/08/24 10:00 Enoxaparin Sodium (Lovenox) 40 mg DAILY SC 12/08/24 10:00 Hydralazine HCl (Apresoline Injection) 10 mg Q6HP PRN IV SBP>150 12/07/24 20:15 12/08/24 04:17 Morphine Sulfate 2 mg Q4HPRN PRN IV SEVERE PAIN (7-10 PAIN SCALE) 12/07/24 20:15 12/08/24 06:22 Clonidine HCl (Catapres Tablet) 0.2 mg Q4HP PRN PO SBP>150 12/08/24 00:30 12/08/24 00:52 Family History: Alcoholism G8 MOTHER Cancer G8 MOTHER (BREAST) G8 FATHER (PROSTATE) G8 SISTER (BREAST) G8 BROTHER G8 BROTHER G8 BROTHER FH: breast cancer G8 MOTHER, Onset:Unknown FH: prostate cancer Family history: Cardiovascular disease G8 FATHER Review of Systems Right hip pain H&P Exam Vital Signs/I&O Vital Sign Date Time Temp Pulse Resp B/P (MAP) Pulse Ox O2 Delivery O2 Flow Rate FiO2 12/08/24 07:27 16 94 Nasal Cannula* 2 28 12/08/24 06:51 79 153/78 12/07/24 19:20 98.4 98.4 Intake and Output 12/07/24 12/08/24 19:00 07:00 Intake Total 600 ml Balance 600 ml Intake IV Total 600 ml Physical Exam Elderly female Ill-appearing Seen on hemodialysis Tunneled hemodialysis catheter Abdomen nontender nondistended Not in respiratory distress Labs/Diagnostic Data Labs/Diagnostic Data Laboratory Tests Test 12/08/24 08:31 12/08/24 04:48 12/07/24 17:35 12/07/24 11:40 Range/Units White Blood Count 4.1 #L 2.8 L 4.4-10.8 10^3/uL Red Blood Count 3.01 L 2.95 L 4.0-5.20 10^6/uL Hemoglobin 9.5 L 9.3 L 12.2-16.2 g/dL Hematocrit 31.0 L 29.7 L 36.0-46.0 % Mean Corpuscular Volume 102.7 H 100.6 H 80.0-100.0 fL Mean Corpuscular Hemoglobin 31.7 31.4 28.0-32.0 pg Mean Corpuscular Hemoglobin Concent 30.8 L 31.3 L 32.0-36.0 g/dL Red Cell Distribution Width 18.8 H 18.7 H 11.8-14.3 % Platelet Count 191 184 140-450 10^3/uL Mean Platelet Volume 9.3 9.5 6.9-10.8 fL Neutrophils (%) (Auto) 40.6 37.0-80.0 % Lymphocytes (%) (Auto) 39.8 10.0-50.0 % Monocytes (%) (Auto) 14.8 H 0.0-12.0 % Basophils (%) (Auto) 0.6 0.0-2.0 % Neutrophils # (Auto) 1.1 L 1.6-8.6 10 ^3/uL Lymphocytes # (Auto) 1.1 0.4-5.4 10 ^3/uL Monocytes # (Auto) 0.4 0-1.3 10 ^3/uL Differential Total Cells Counted 100.0 100 Neutrophils % (Manual) 45 37.0-80.0 Band Neutrophils % (Manual) 0 Lymphocytes % (Manual) 36 10.0-50.0 Monocytes % (Manual) 14 H 0-12 Eosinophils % (Manual) 5 0-7 Basophils % (Manual) 0 0.0-2.0 Metamyelocytes % (manual) 0 Myelocytes % (Manual) 0 Promyelocytes % (Manual) 0 Blast Cells % (Manual) 0 Reactive Lymphocytes 0 Platelet Estimate Adequate Sodium Level 139 141 136-145 mmol/L Potassium Level 4.7 4.8 3.5-5.1 mmol/L Chloride Level 105 106 98-107 mmol/L Carbon Dioxide Level 24 28 20-31 mmol/L Anion Gap 10 7 5-15 Blood Urea Nitrogen 39 H 36 H 9-23 mg/dL Creatinine 4.22 H 3.76 H 0.550-1.02 mg/dL Glomerular Filtration Rate Calc 11 12 >90 mL/min BUN/Creatinine Ratio 9.2 L 9.6 L 10.0-20.0 Serum Glucose 75 67 L 74-106 mg/dL Calcium Level 9.4 8.9 8.7-10.4 mg/dL Magnesium Level 2.2 2.1 1.6-2.6 mg/dL Iron Level 38 L 50-170 ug/dL Total Iron Binding Capacity 153 L 250-425 ug/dL Percent Iron Saturation 24.8 15-50 % Ferritin 474.8 H 10-291 ng/mL Triglycerides Level 83 < 150 mg/dL Cholesterol Level 144 < 200 mg/dL LDL Cholesterol 48 < 100 mg/dL HDL Cholesterol 63 H 40-59 mg/dL Troponin I High Sensitivity 162 *H 155 *H </=34 ng/L Eosinophils (%) (Auto) 4.2 0.0-7.0 % Eosinophils # (Auto) 0.1 0-0.8 10 ^3/uL Basophils # (Auto) 0 0-0.2 10 ^3/uL Nucleated Red Blood Cells 0.1 % Prothrombin Time 11.6 9.3-11.8 sec Prothrombin Time INR 1.11 0.9-1.15 Activated Partial Thromboplast Time 30.3 24.5-34.5 SEC Total Bilirubin < 0.2 L 0.2-1.0 mg/dL Aspartate Amino Transferase (AST) 10 L 13-40 U/L Alanine Aminotransferase (ALT) < 9 7-40 U/L Alkaline Phosphatase 330 H 46-116 U/L Total Protein 6.6 5.7-8.2 g/dL Albumin 3.0 L 3.2-4.8 g/dL Thyroid Stimulating Hormone (TSH) 0.05 L 0.55-4.78 uIU/mL Test 12/07/24 11:30 Range/Units Hemoglobin A1c 4.0 <5.7 % A1C Assessment End-stage renal disease on hemodialysis Presents to the hospital complaining of leg pain has mildly displaced right femoral neck fracture and pubic fracture Hypotension History of CHF Anemia due to chronic kidney disease Hemodialysis treatment at bedside Fluid removal as tolerated Resume home medications as per primary medical team Pain support as per primary medical team Renal diet Epogen today and dialysis 44438 units, we will start MWF Epogen order tomorrow Elevated pressors from hemodialysis catheter w/ notable kinked area appears to be in the setting of chronic clamping this is indicative of very old catheter we will consider catheter exchange if subsequent treatments are suboptimal Plan discussed with: Patient VIANCAMarisolHARPREET MD December 08, 2024 09:17
[2024-12-08] MEDS: TENAPANOR HCL PO SCH (10:00)
[2024-12-08] MEDS: ISOSORBIDE MONONITRATE ER 60 MG TAB PO SCH (10:00)
[2024-12-08] MEDS: NIFEdipine ER 30 MG TAB PO SCH (10:00)
[2024-12-08] MEDS: QUEtiapine FUMARATE 100 MG TAB PO SCH (11:34)
[2024-12-08] MEDS: ASPirin 81 mg TAB PO SCH (11:34)
[2024-12-08] MEDS: ENOXAPARIN SOD 40 MG/0.4 ML SYRINGE SC SCH (11:34)
[2024-12-08] MEDS: PANTOPRAZOLE 40 MG TAB PO SCH (11:34)
[2024-12-08] MEDS: B-COMPLEX W/ C & FOLIC ACID(NEPHROVITE TAB) PO SCH (11:34)
[2024-12-08] MEDS: DOCUSATE SOD 100 MG CAP PO ONE (12:59)
--- NOTE | 2024-12-08 13:13 | DVHPN2 ---
Reviewed: Care Plan, H&P, Labs, Medications, Previous Orders, Radiology Changes from previous H/P or p: No Changes Cardiovascular: Chest Pain Musculoskeletal: leg pain Objective Vitals Vital Signs Date Time Temp Pulse Resp B/P (MAP) Pulse Ox O2 Delivery O2 Flow Rate FiO2 12/08/24 11:35 93 18 156/86 12/08/24 07:27 94 Nasal Cannula* 2 28 12/07/24 19:20 98.4 98.4 Intake/Output Intake and Output 12/08/24 07:00 Intake Total 600 ml Balance 600 ml Intake IV Total 600 ml Medications Current Medications Medications Dose Ordered Sig/Margarito Route Start Time Stop Time Status Last Admin Dose Admin Aspirin 81 mg DAILY PO 12/08/24 10:00 12/08/24 11:34 81 MG Atorvastatin Calcium 40 mg HS PO 12/07/24 22:00 12/07/24 22:27 40 MG Acetaminophen 650 mg Q6HP PRN PO 12/07/24 17:15 Ondansetron HCl 4 mg Q4HP PRN IV 12/07/24 17:15 12/08/24 11:42 4 MG Nitroglycerin 0.4 mg Q5MINP PRN SL 12/07/24 17:15 Morphine Sulfate 2 mg Q30M PRN IV 12/07/24 17:15 Ascorbic Acid 500 mg BID PO 12/07/24 22:00 12/08/24 11:34 500 MG Multivit/Ca Carb/ B Cmplx/FA/Prenat 1 tab DAILY PO 12/08/24 10:00 12/08/24 11:34 1 TAB Carisoprodol 350 mg QID PO 12/07/24 18:00 12/08/24 12:59 350 MG Carvedilol 12.5 mg BID PO 12/07/24 22:00 12/08/24 11:32 12.5 MG Hydralazine HCl 25 mg TID PO 12/07/24 22:00 12/08/24 05:36 25 MG Pantoprazole Sodium 40 mg DAILY PO 12/08/24 10:00 12/08/24 11:34 40 MG Quetiapine Fumarate 100 mg DAILY PO 12/08/24 10:00 12/08/24 11:34 100 MG Cinacalcet 60 mg TID PO 12/07/24 22:00 Patient Own Medication 3 cap HS PO 12/07/24 22:00 Isosorbide Mononitrate 30 mg DAILY PO 12/08/24 10:00 Levothyroxine Sodium 200 mcg QAM PO 12/08/24 07:00 12/08/24 06:46 200 MCG Nifedipine 90 mg DAILY PO 12/08/24 10:00 Sevelamer HCl 1,600 mg TIDWM PO 12/08/24 08:00 12/08/24 13:00 1,600 MG Patient Own Medication 1 tab BID PO 12/08/24 10:00 Enoxaparin Sodium 40 mg DAILY SC 12/08/24 10:00 12/08/24 11:34 40 MG Hydralazine HCl 10 mg Q6HP PRN IV 12/07/24 20:15 12/08/24 04:17 10 MG Morphine Sulfate 2 mg Q4HPRN PRN IV 12/07/24 20:15 12/08/24 11:35 2 MG Clonidine HCl 0.2 mg Q4HP PRN PO 12/08/24 00:30 12/08/24 00:52 0.2 MG Laboratory Results Laboratory Tests 12/08/24 04:48 Chemistry Test 12/08/24 04:48 Calcium Level 9.4 mg/dL (8.7-10.4) Magnesium Level 2.2 mg/dL (1.6-2.6) Lipid panel Test 12/08/24 04:48 Cholesterol Level 144 mg/dL (< 200) HDL Cholesterol 63 mg/dL (40-59) H Triglycerides Level 83 mg/dL (< 150) Labs and/or images reviewed: Labs reviewed by me, Image(s) reviewed by me Assessment/Plan Assessment/Plan NSTEMI.: Consult by bearing grinder Dr.M Will appreciated Anemia. Right lower extremity pain. Severe diffuse osteopenia. 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 Chronic appearing fracture of the right inferior pubic ramus. Hypertensive urgency. ESRD on hemodialysis: Consult by Dr. Thornton appreciated. Acute hypoxic respiratory failure. History of paraplegia. History of CAD. COPD. CHF. Bipolar disease. History of [place]. Time spent 70 minutes Advanced care planning time 20 minutes Patient is full code Condition guarded Plan discussed with: Patient Date of Service: December 08, 2024 Billing Provider: CARLITO CHRISTIANSEN MD Common Visit Codes: [id number] CARE 30-74 MIN CARLITO CHRISTIANSEN MD December 08, 2024 13:13
[2024-12-08] MEDS: HYDROmorphone HCL 2 MG/ML VL/or syr IV PRN (16:21)
[2024-12-08 18:27] VITALS: TEMP 97.9; O2SAT 96
[2024-12-08 18:33] VITALS: BP 112/61; PULSE 95; RESP 16
[2024-12-08] MEDS: HYDROmorphone HCL 2 MG/ML VL/or syr IV ONE (18:33)
[2024-12-08] MEDS ORDERED: EPOETIN ALFA-EPBX 10,000 UNIT/1ML VIAL SC ONE (21:00)
--- NOTE | 2024-12-09 01:20 | DVHPN2 ---
Progress Note - Dictate Date Seen: December 08, 2024 Medical Necessity Reason Pt with a Central, PICC or Fol: No Subjective Patient was seen and evaluated in follow up. Patient is complaining of right sided hip pain. HGB 9.5, HCT 31, BUN 39, SENIOR PHP DEVELOPER 4.22. Patient is being arranged for transfer to [facility] for ortho. Per CM, patient has been accepted to [facility]. Telemetry reviewed. vital signs Vital Sign Date Time Temp Pulse Resp B/P (MAP) Pulse Ox O2 Delivery O2 Flow Rate FiO2 12/08/24 14:00 97/55 12/08/24 11:35 93 18 12/08/24 07:27 94 Nasal Cannula* 2 28 12/07/24 19:20 98.4 98.4 Total Intake and Output 12/07/24 12/07/24 12/08/24 15:00 23:00 07:00 Intake Total 600 ml Balance 600 ml medications Current Medications Medications Dose Ordered Sig/Margarito Route Start Time Stop Time Status Last Admin Dose Admin Aspirin 81 mg DAILY PO 12/08/24 10:00 12/08/24 11:34 81 MG Atorvastatin Calcium 40 mg HS PO 12/07/24 22:00 12/07/24 22:27 40 MG Acetaminophen 650 mg Q6HP PRN PO 12/07/24 17:15 Ondansetron HCl 4 mg Q4HP PRN IV 12/07/24 17:15 12/08/24 11:42 4 MG Nitroglycerin 0.4 mg Q5MINP PRN SL 12/07/24 17:15 Morphine Sulfate 2 mg Q30M PRN IV 12/07/24 17:15 Ascorbic Acid 500 mg BID PO 12/07/24 22:00 12/08/24 11:34 500 MG Multivit/Ca Carb/ B Cmplx/FA/Prenat 1 tab DAILY PO 12/08/24 10:00 12/08/24 11:34 1 TAB Carisoprodol 350 mg QID PO 12/07/24 18:00 12/08/24 12:59 350 MG Carvedilol 12.5 mg BID PO 12/07/24 22:00 12/08/24 11:32 12.5 MG Hydralazine HCl 25 mg TID PO 12/07/24 22:00 12/08/24 05:36 25 MG Pantoprazole Sodium 40 mg DAILY PO 12/08/24 10:00 12/08/24 11:34 40 MG Quetiapine Fumarate 100 mg DAILY PO 12/08/24 10:00 12/08/24 11:34 100 MG Cinacalcet 60 mg TID PO 12/07/24 22:00 12/08/24 15:48 60 MG Patient Own Medication 3 cap HS PO 12/07/24 22:00 Isosorbide Mononitrate 30 mg DAILY PO 12/08/24 10:00 Levothyroxine Sodium 200 mcg QAM PO 12/08/24 07:00 12/08/24 06:46 200 MCG Nifedipine 90 mg DAILY PO 12/08/24 10:00 Sevelamer HCl 1,600 mg TIDWM PO 12/08/24 08:00 12/08/24 13:00 1,600 MG Patient Own Medication 1 tab BID PO 12/08/24 10:00 Enoxaparin Sodium 40 mg DAILY SC 12/08/24 10:00 12/08/24 11:34 40 MG Hydralazine HCl 10 mg Q6HP PRN IV 12/07/24 20:15 12/08/24 04:17 10 MG Clonidine HCl 0.2 mg Q4HP PRN PO 12/08/24 00:30 12/08/24 00:52 0.2 MG Hydromorphone HCl 2 mg Q4HPRN PRN IV 12/08/24 13:45 objective GENERAL: Alert and oriented x 3. No acute distress. Bedridden, Paraplegia. EYES: PERRL, EOMI. Anicteric. HENT: Moist mucous membranes. LUNGS: Clear to auscultation bilaterally. CARDIOVASCULAR: Regular rate and rhythm. ABDOMEN: Soft, nontender and nondistended. EXTREMITIES: Right hip deformity, decreased ROM. NEUROLOGIC: No focal neurological deficits. SKIN: Warm, dry. laboratory and microbiology Laboratory Tests 12/08/24 04:48 Test 12/08/24 04:48 Range/Units Serum Glucose 75 74-106 mg/dL Problem List NSTEMI. Anemia. Right lower extremity pain. Severe diffuse osteopenia. 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 Chronic appearing fracture of the right inferior pubic ramus. Hypertensive urgency. ESRD. Acute hypoxic respiratory failure. History of paraplegia. History of CAD. COPD. CHF. Bipolar disease. History of [place]. Assessment/Plan Continued all current supportive medical care. Echocardiogram. Aspirin,Lipitor. Coreg, Hydralazine. IV Hydralazine for SBP >150. DVT prophylactics. Morphine for pain management. Additional plan as per the hospital course. Plan discussed with: Patient WENDY COREAS MD December 08, 2024 15:56
--- NOTE | 2024-12-09 08:28 | DVHDS2 ---
Discharge Summary Date of Admission December 07, 2024 at 17:12 Date of Discharge: December 08, 2024 Admitting Diagnosis Right mid femur fracture Wounds: Right mid femur fracture Labs/Diagnostic Data: Laboratory Results Test 12/08/24 13:59 12/08/24 04:48 12/07/24 17:35 12/07/24 11:40 White Blood Count 4.1 10^3/uL (4.4-10.8) Red Blood Count 3.01 10^6/uL (4.0-5.20) Hemoglobin 9.5 g/dL (12.2-16.2) Hematocrit 31.0 % (36.0-46.0) Mean Corpuscular Volume 102.7 fL (80.0-100.0) Mean Corpuscular Hemoglobin 31.7 pg (28.0-32.0) Mean Corpuscular Hemoglobin Concent 30.8 g/dL (32.0-36.0) Red Cell Distribution Width 18.8 % (11.8-14.3) Platelet Count 191 10^3/uL (140-450) Mean Platelet Volume 9.3 fL (6.9-10.8) Neutrophils (%) (Auto) % (37.0-80.0) Lymphocytes (%) (Auto) % (10.0-50.0) Monocytes (%) (Auto) % (0.0-12.0) Basophils (%) (Auto) % (0.0-2.0) Neutrophils # (Auto) 10 ^3/uL (1.6-8.6) Lymphocytes # (Auto) 10 ^3/uL (0.4-5.4) Monocytes # (Auto) 10 ^3/uL (0-1.3) Differential Total Cells Counted 100.0 (100) Neutrophils % (Manual) 45 (37.0-80.0) Band Neutrophils % (Manual) 0 Lymphocytes % (Manual) 36 (10.0-50.0) Monocytes % (Manual) 14 (0-12) Eosinophils % (Manual) 5 (0-7) Basophils % (Manual) 0 (0.0-2.0) Metamyelocytes % (manual) 0 Myelocytes % (Manual) 0 Promyelocytes % (Manual) 0 Blast Cells % (Manual) 0 Reactive Lymphocytes 0 Platelet Estimate Adequate Sodium Level 139 mmol/L (136-145) Potassium Level 4.7 mmol/L (3.5-5.1) Chloride Level 105 mmol/L (98-107) Carbon Dioxide Level 24 mmol/L (20-31) Anion Gap 10 (5-15) Blood Urea Nitrogen 39 mg/dL (9-23) Creatinine 4.22 mg/dL (0.550-1.02) Glomerular Filtration Rate Calc 11 mL/min (>90) BUN/Creatinine Ratio 9.2 (10.0-20.0) Serum Glucose 75 mg/dL (74-106) Calcium Level 9.4 mg/dL (8.7-10.4) Magnesium Level 2.2 mg/dL (1.6-2.6) Iron Level 38 ug/dL (50-170) Total Iron Binding Capacity 153 ug/dL (250-425) Percent Iron Saturation 24.8 % (15-50) Ferritin 474.8 ng/mL (10-291) Triglycerides Level 83 mg/dL (< 150) Cholesterol Level 144 mg/dL (< 200) LDL Cholesterol 48 mg/dL (< 100) HDL Cholesterol 63 mg/dL (40-59) Troponin I High Sensitivity 162 ng/L (</=34) Eosinophils (%) (Auto) 4.2 % (0.0-7.0) Eosinophils # (Auto) 0.1 10 ^3/uL (0-0.8) Basophils # (Auto) 0 10 ^3/uL (0-0.2) Nucleated Red Blood Cells 0.1 % Prothrombin Time 11.6 sec (9.3-11.8) Prothrombin Time INR 1.11 (0.9-1.15) Activated Partial Thromboplast Time 30.3 SEC (24.5-34.5) Total Bilirubin < 0.2 mg/dL (0.2-1.0) Aspartate Amino Transferase (AST) 10 U/L (13-40) Alanine Aminotransferase (ALT) < 9 U/L (7-40) Alkaline Phosphatase 330 U/L (46-116) Total Protein 6.6 g/dL (5.7-8.2) Albumin 3.0 g/dL (3.2-4.8) Thyroid Stimulating Hormone (TSH) 0.05 uIU/mL (0.55-4.78) Test 12/07/24 11:30 Hemoglobin A1c 4.0 % A1C (<5.7) Other Laboratory Tests 12/08/24 04:48 Brief Hx & Hospital Course: 69-year-old female with multiple medical problems including osteopenia hypertension ESRD on hemodialysis chronic respiratory failure history of paraplegia secondary to stroke coronary artery disease COPD CHF bipolar history of CT had a mechanical fall and came in complaining of pain found to have right mid femur fracture ortho Dr in a year advised transferred to higher level of care. Seen by Cardiology Dr. Will and nephrology Dr Schafer. Patient was transferred from ER bed 3 to [facility] for higher level of care for right femur fracture. General condition satisfactory at the time of transfer. Consults/Reason for consult Orthopedic Dr Ribeiro Cardiology Dr. Will Nephrology Dr. Schafer Operations or Procedures Right hip x-ray Condition at Discharge: Fair Final Diagnosis/Problems List Right mid femur fracture NSTEMI. Anemia. Right lower extremity pain. Severe diffuse osteopenia. 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 Chronic appearing fracture of the right inferior pubic ramus. Hypertensive urgency. ESRD. Acute hypoxic respiratory failure. History of paraplegia. History of CAD. COPD. CHF. Bipolar disease. History of CT. Discharge Disposition: Acute Care Facility 39 (Time taken for discharge summary 39 minutes) Discharge Statement: "Patient was advised to return to the ER or call 911 if any headaches, dizziness, shortness of breath, chest pain, abdominal pain, bleeding, fevers, or worsening of medical condition. Patient was counseled about treatment plan, medications, possible side effects, patientverbalized understanding. All questions were answered to the best of my ability. This discharge took greater then 30 minutes in planning, reviewing documentation, counseling the patient, and discussing with other team members." ASSESSMENT ASSESSMENT Hospital Course Transferred to [facility] Assessment Date of Service: Dec 09, 2024 Billing Provider: CARLITO CHRISTIANSEN MD Common Visit Codes: [id number] DISCH DAY >30min CARLITO CHRISTIANSEN MD Dec 09, 2024 08:27
[2024-12-10 12:17] LABS: Hepatitis A Ab IgM Negative; Hepatitis B Core IgM Negative (Negative); Hepatitis B Surface Antigen Negative (Negative); Hepatitis C Antibody Negative (Negative)
== END 2024-12-08 18:30 | disposition short-term general hospital (02) | DRG 963 ==
LOC: ER 09:31 → EDUNIT# 09:31 → EDBD 09:31 → OVERFLOW 17:12
DX: S72.91XA Unspecified fracture of right femur, initial encounter for closed fracture (principal); I21.4 Non-ST elevation (NSTEMI) myocardial infarction; S32.591A Other specified fracture of right pubis, initial encounter for closed fracture; J96.21 Acute and chronic respiratory failure with hypoxia; N18.6 End stage renal disease; E44.0 Moderate protein-calorie malnutrition; I13.2 Hypertensive heart and chronic kidney disease with heart failure and with stage 5 chronic kidney disease, or end stage renal disease; N17.9 Acute kidney failure, unspecified; G82.20 Paraplegia, unspecified; I50.9 Heart failure, unspecified; E11.22 Type 2 diabetes mellitus with diabetic chronic kidney disease; D63.1 Anemia in chronic kidney disease; E05.80 Other thyrotoxicosis without thyrotoxic crisis or storm; L98.429 Non-pressure chronic ulcer of back with unspecified severity; I16.0 Hypertensive urgency; J44.9 Chronic obstructive pulmonary disease, unspecified; F31.9 Bipolar disorder, unspecified; G83.9 Paralytic syndrome, unspecified; M85.80 Other specified disorders of bone density and structure, unspecified site; I25.10 Atherosclerotic heart disease of native coronary artery without angina pectoris; W18.39XA Other fall on same level, initial encounter; G89.29 Other chronic pain; M54.9 Dorsalgia, unspecified; I25.2 Old myocardial infarction; Z88.8 Allergy status to other drugs, medicaments and biological substances; Z79.2 Long term (current) use of antibiotics; Z79.899 Other long term (current) drug therapy; Z79.891 Long term (current) use of opiate analgesic; Z95.5 Presence of coronary angioplasty implant and graft; Z74.01 Bed confinement status; Z80.0 Family history of malignant neoplasm of digestive organs; Z80.3 Family history of malignant neoplasm of breast; Z82.49 Family history of ischemic heart disease and other diseases of the circulatory system; Y93.89 Activity, other specified; Y92.89 Other specified places as the place of occurrence of the external cause; Y99.8 Other external cause status; Z68.28 Body mass index [BMI] 28.0-28.9, adult; Q65.89 Other specified congenital deformities of hip; Z91.81 History of falling; Z99.2 Dependence on renal dialysis; Z99.81 Dependence on supplemental oxygen
CPT/HCPCS: 36415; 71045; 73502; 80048; 80053; 80061; 80074; 82728; 83036; 83540; 83550; 83735; 84443; 84484; 85007; 85025; 85027; 85610; 85730; 93005; 93970; 96361; 96374; 96375; G0378; J1642; J2405

== ENCOUNTER 2025-04-05 10:55 | Inpatient (IN) | payer MEDICARE, MEDICAID ==
[~2025-04-05] VITALS: Ht 157.5 cm; Wt 72.0 kg
--- NOTE | 2025-04-05 11:05 | ED.PDOC ---
HPI Comments 70 y.o female presents to the ED via EMS for a chief complaint of left anterior chest wall pain that started last night. Patient reports pain is constant, non radiating and worsens when laying flat. EMS reports patient did complaint of left arm pain but states has had this pain in the past and f/u with product distribution specialist. Patient rates pain a 8/10 on the pain scale and has no alleviating factors. EMS notes patient has extensive medical history that includes paraplegia s/p spinal surgery in 2018, COPD (on home oxygen), HTN and ESRD with dialysis on ,W,F. Patient's last dialysis session was on 04/02/25 in which she was hospitalized for a cardiac related event with unknown etiology/diagnosis. No dialysis today given symptoms presentation. Time Seen by MD: 11:04 Primary Care Provider: UNKNOWN Reviewed Notes: Quality Assurance Advisor Notes, Medications, Allergies Allergies: Coded Allergies: Baclofen (Verified Allergy, Unknown, 11/07/23) Home Meds Active Scripts Ampicillin (Ampicillin) 500 Mg Cap, 1 CAP PO TID for 10 Days, #30 CAP Prov:HATTIE ROLLINS INFRASTRUCTURE ENGINEER 03/16/24 Sulfamethoxazole W/Trimethopri (Bactrim Ds Tablet) 1 Tab Tb, 1 TAB PO BID for 10 Days, #20 TAB Prov:HATTIE ROLLINS NP 03/16/24 Albuterol Sulfate (Albuterol Sulfate) 0.083 % Neb, 1 VIAL NEB Q4HPRN, #50 VIAL 2 Refills Prov:LUANNE GILL MD 11/10/23 Isosorbide Mononitrate (Isosorbide Mononitrate Er) 30 Mg Tab, 1 TAB PO DAILY, #30 TAB Prov:AZAR ALBA MD 09/01/21 Nifedipine (Nifedipine Er) 90 Mg Tab, 1 TAB PO DAILY, #30 TAB Prov:AZAR ALBA MD 09/01/21 Ascorbic Acid (VITAMIN C TABLET) 500 Mg Tb, 500 MG PO BID for 30 Days Prov:DASHAWN PELAEZ MD 09/12/18 Reported Medications Fluconazole (Fluconazole) 150 Mg Tab, 1 TAB PO DAILY for 7 Days, #7 MG 11/09/23 Triamcinolone Acetonide (Kenalog) 1 Applic Ap, 1 APPLIC TOP BID 11/09/23 Ondansetron Odt 4MG Tab (ZOFRAN PO) 4 Mg Tb, 1 TAB PO DAILY 11/09/23 Tenapanor HCl (Xphozah) 30 Mg Tab, 1 TAB PO BID 11/09/23 B-Complex W/ C & Folic Acid (Marisela-Tita Rx) Tab, 1 TAB PO DAILY 11/09/23 Lisinopril (Lisinopril) 20 Mg Tab, 1 TAB PO DAILY 11/09/23 Quetiapine Fumerate (Seroquel) 100 Mg Tab, 1 TAB PO DAILY 11/09/23 Hydralazine HCl (Hydralazine HCl) 25 Mg Tab, 1 TAB PO TID 11/07/23 Carvedilol (Carvedilol) 12.5 Mg Tab, 1 TAB PO BID 11/07/23 Oxycodone W/ Acetaminophen (Apap/Oxycodone) 1 Tab Tab, 10-325 MG PO QIDPRN PRN for back pain 08/31/21 Carisoprodol (Soma) 350 Mg Tab, 350 MG PO QID 03/07/19 Clopidogrel Bisulfate (CLOPIDOGREL) 75 Mg Tab, 75 MG PO DAILY 03/07/19 Levothyroxine Sodium (Levothyroxine Sodium) 200 Mcg Tab, 200 MCG PO QAM Dose verified against [facility] record 08/18/18 Docusate Sodium (DOCQLACE) 100 Mg Cap, 100 MG PO TID 08/05/18 Temazepam (Temazepam) 30 Mg Cap, 15 MG PO HS PRN for FOR INSOMNIA 04/17/18 Alprazolam (Xanax) 0.5 Mg Tb, 0.5 TAB PO BID 07/14/17 Cinacalcet Hydrochloride (Sensipar) 60 Mg Tab, 60 MG PO TID Per patient, she takes cinacalcet 60 mg tab, TID before meals. 01/08/16 Sevelamer Carbonate (Renvela) 800 Mg Tab, 2 TAB PO TID 01/08/16 Pantoprazole Sodium Sesquihydr (Protonix) 40 Mg Tab, 40 MG PO DAILY 01/08/16 Doxepin Hcl (Doxepin Hcl) 50 Mg Cap, 3 CAP PO QPM per patient 12/20/12 Atorvastatin Calcium (Lipitor) 10 Mg Tab, 1 TAB PO DAILY 12/20/12 Information Source: Patient, Emergency Med Personnel Mode of Arrival: EMS Severity: Moderate Duration: Since onset Onset: At Rest, With Light Exertion, With Heavy Exertion Past Medical History PAST MEDICAL HISTORY: CHF, COPD, HTN, [place] Surgical History: Tonsillectomy FOOD SERVICE KITCHEN SUPERVISOR History: No Pertinent FOOD SERVICE KITCHEN SUPERVISOR History Family History Family History: Reviewed,noncontributory to illness, Unknown Social History Smoker: Non-Smoker Alcohol: Denies ETOH Use Drugs: Denies Drug Use Lives In: Home Constitutional: denies: chills, diaphoresis, fatigue, fever, malaise, sweats, weakness, others EENTM: denies: blurred vision, double vision, ear bleeding, ear discharge, ear drainage, ear pain, ear ringing, eye pain, eye redness, hearing loss, mouth pain, mouth swelling, nasal discharge, nose bleeding, nose congestion, nose pain, photophobia, tearing, throat pain, throat swelling, voice changes, others Respiratory: denies: cough, hemoptysis, orthopnea, SOB at rest, shortness of breath, SOB with excertion, stridor, wheezing, others Cardiovascular: denies: chest pain, dizzy spells, diaphoresis, Dyspnea on exertion, edema, irregular heart beat, left arm pain, lightheadedness, palpitations, PND, syncope, others Gastrointestinal: denies: abdomen distended, abdominal pain, blood streaked bowels, constipated, diarrhea, dysphagia, difficulty swallowing, hematemesis, melena, nausea, poor appetite, poor fluid intake, rectal bleeding, rectal pain, vomiting, others Genitourinary: denies: abnormal vagina bleeding, burning, dyspareunia, dysuria, flank pain, frequency, hematuria, incontinence, pain, , vagina discharge, urgency, others Neurological: denies: dizziness, fainting, headache, left sided numbness, left sided weakness, numbness, paresthesia, pre-existing deficit, right sided numbness, right sided weakness, seizure, speech problems, tingling, tremors, weakness, others Musculoskeletal: denies: back pain, gout, joint pain, joint swelling, muscle pain, muscle stiffness, neck pain, others Integumetry: denies: bruises, change in color, change in hair/nails, dryness, laceration, lesions, lumps, rash, wounds, others Allergic/Immunocompromised: denies: Difficulty Healing, Frequent Infections, Hives, Itching, others Hematologic/Lymphatic: denies: anemia, blood clots, easy bleeding, easy bruising, swollen glands, others Endocrine: denies: excessive hunger, excessive sweating, excessive thirst, excessive urination, flushing, intolerance to cold, intolerance to heat, unexplained weight gain, unexplained weight loss, others Psychiatric: denies: anxiety, bipolar disorder, depression, hopeless, panic disorder, schizophrenia, sleepless, suicidal, others All Other Systems: Reviewed and Negative Physical Exam General Appearance: Moderate Distress HEENT: Normal ENT Inspection, Pharynx Normal, TMs Normal Neck: Full Range of Motion, Non-Tender, Normal, Normal Inspection Respiratory: Chest Non-Tender, Lungs Clear, No Accessory Muscle Use, No Respiratory Distress, Normal Breath Sounds Cardiovascular: No Edema, No JVD, No Murmur, No Gallop, Normal Peripheral Pulses, Regular Rate/Rhythm Breast Exam: Deferred Gastrointestinal: No Organomegaly, Non Tender, No Pulsatile Mass, Normal Bowel Sounds, Soft Genitalia: Deferred Pelvic: Deferred Rectal: Deferred Extremities: No calf tenderness Musculoskeletal : Apperance: Normal Neurologic: Alert, Other (Paraplegic) Cerebellar Function: NOT DONE Reflexes: NOT DONE Skin: Wounds (Decubitus) Peripheral Pulses: 3+ Radial (R), 3+ Radial (L) Lymphatic: No Adenopathy Was a procedure done? 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: Attending Physician Indication: Hypotension, CVP monitoring Room prepared for procedure: Yes Water Hydrant Installer performed hand hygien: Yes Maximal sterile barrier precau: Mask/Eye shield, Sterile gown Skin Preparation: Chlorhexidine gluconate, Providine iodine Skin preparation completely dr: Yes Insertion site: Right, Femoral Central line catheter type: [id number] dialysis Number of lumens: 3 CP Differential Dx Differential Diagnosis: A-fib, A-Flutter, Angina, Anxiety / Panic Attack, Atrial Dysrhythmia, Electrolyte Disorder Differential Diagnosis: CHF, HTN Essential Differential Diagnosis: Chest Wall Pain, Gastritis X-Ray, Labs, Meds, VS Vital Signs Date Time Temp Pulse Resp B/P (MAP) Pulse Ox O2 Delivery O2 Flow Rate FiO2 04/05/25 17:11 99/39 04/05/25 16:00 70 10 117/33 (61) 92 04/05/25 15:15 74 10 104/41 (62) 92 04/05/25 15:00 70 11 75/37 (50) 98 04/05/25 14:50 79 15 72/29 (43) 88 04/05/25 14:05 76 04/05/25 11:55 81 12 99/50 (66) 91 04/05/25 11:55 78 04/05/25 11:37 98.7 73 9 89/43 (58) 94 98.7 04/05/25 11:15 94 Nasal Cannula* 3 32 04/05/25 11:15 94 Nasal Cannula* 3 32 04/05/25 11:15 74 04/05/25 11:12 97.7 80 16 102/70 96 97.7 04/05/25 10:58 73 Lab Test 04/05/25 14:42 04/05/25 12:44 04/05/25 11:30 Range/Units Troponin I High Sensitivity 6 89 *H 89 *H </=34 ng/L White Blood Count 4.1 L 4.4-10.8 10^3/uL Red Blood Count 2.85 L 4.0-5.20 10^6/uL Hemoglobin 9.1 L 12.2-16.2 g/dL Hematocrit 28.0 L 36.0-46.0 % Mean Corpuscular Volume 98.1 80.0-100.0 fL Mean Corpuscular Hemoglobin 31.9 28.0-32.0 pg Mean Corpuscular Hemoglobin Concent 32.5 32.0-36.0 g/dL Red Cell Distribution Width 17.3 H 11.8-14.3 % Platelet Count 123 L 140-450 10^3/uL Mean Platelet Volume 10.6 6.9-10.8 fL Neutrophils (%) (Auto) 37.0-80.0 % Lymphocytes (%) (Auto) 10.0-50.0 % Monocytes (%) (Auto) 0.0-12.0 % Basophils (%) (Auto) 0.0-2.0 % Neutrophils # (Auto) 1.6-8.6 10 ^3/uL Lymphocytes # (Auto) 0.4-5.4 10 ^3/uL Monocytes # (Auto) 0-1.3 10 ^3/uL Differential Total Cells Counted 100.0 100 Neutrophils % (Manual) 47 37.0-80.0 Band Neutrophils % (Manual) 0 Lymphocytes % (Manual) 33 10.0-50.0 Monocytes % (Manual) 20 H 0-12 Eosinophils % (Manual) 0 0-7 Basophils % (Manual) 0 0.0-2.0 Metamyelocytes % (manual) 0 Myelocytes % (Manual) 0 Promyelocytes % (Manual) 0 Blast Cells % (Manual) 0 Reactive Lymphocytes 0 Platelet Estimate Decreased Large Platelets Few Anisocytosis (manual) Slight Prothrombin Time 11.4 9.3-11.8 sec Prothrombin Time INR 1.08 0.9-1.15 Activated Partial Thromboplast Time 33.6 24.5-34.5 SEC Sodium Level 131 L 136-145 mmol/L Potassium Level 5.3 H 3.5-5.1 mmol/L Chloride Level 96 L 98-107 mmol/L Carbon Dioxide Level 22 20-31 mmol/L Anion Gap 13 5-15 Blood Urea Nitrogen 55 H 9-23 mg/dL Creatinine 5.81 H 0.550-1.02 mg/dL Glomerular Filtration Rate Calc 7 >90 mL/min BUN/Creatinine Ratio 9.5 L 10.0-20.0 Serum Glucose 74 74-106 mg/dL Lactic Acid Level 1.0 0.4-2.0 mmol/L Calcium Level 9.0 8.7-10.4 mg/dL Total Bilirubin < 0.2 L 0.2-1.0 mg/dL Aspartate Amino Transferase (AST) 12 L 13-40 U/L Alanine Aminotransferase (ALT) < 9 7-40 U/L Alkaline Phosphatase 387 H 46-116 U/L Total Protein 6.9 5.7-8.2 g/dL Albumin 3.4 3.2-4.8 g/dL Hepatitis B Surface Antigen Negative Negative Current Medications Medications (Trade) Dose Ordered Sig/Margarito Route Start Time Stop Time Status Last Admin Cefepime HCl 50 ml @ 50 mls/hr ONCE ONCE IV 04/05/25 11:30 04/05/25 12:29 DC 04/05/25 11:50 Norepinephrine Bitartrate 250 ml @ 3.75 mls/hr Q24H IV 04/05/25 16:45 04/05/25 17:11 Patient alert. Came in because of chest pain. Possible sepsis. Placed on oxygen. She is on home oxygen. Could not give fluids because of possible CHF. She is on dialysis. Explained to the patient. Continue monitoring. Images Reviewed?: Images reviewed and evaluated by me Time of 1ST Reevaluation: 11:34 Reevaluation 1ST: Unchanged Patient Education/Counseling: Diagnosis, Treatment Family Education/Counseling: No Family Present Medical Screening: No EMC Exist At This Time SEPSIS Sepsis Screen Physician Orders Electrocardigram (04/05/25 14:05) Urinalysis (04/05/25 11:05) Chest Portable (04/05/25 11:05) Accucheck (04/05/25 11:05) Blood Culture (04/05/25 11:05) Notify Md If Map <65 Or Bp<90 (04/05/25 11:05) If Map<65 Start Vasopressor (04/05/25 11:05) Sepsis Reassesment After Fluid (04/05/25 12:05) *[facility] (04/05/25 11:05) Hemodialysis Orders (04/05/25 13:38) Norepinephrine 8 Mg/250ml Kit (Levophed) (04/05/25 16:45) Zosyn Extended Infusion (04/05/25 22:00) * Cardiology Consult (04/05/25 17:23) Admit (04/05/25 17:23) Code Status (04/05/25 17:23) Vital Signs .PER UNIT PROTOCOL (04/05/25 17:23) Deckhand Maintenance (04/05/25 17:23) Cardiac Diet-2gna,Lofat,Lochol (04/05/25 Dinner) Aspirin Tablet (04/06/25 10:00) Lipitor 40mg Hs Hi-Intensity (04/05/25 22:00) Morphine Sulfate Injection (04/05/25 17:30) Acetaminophen Tablet (Tylenol Tablet) (04/05/25 17:30) Pulse Oximeter Check (04/05/25 17:23) Oxygen Per Standardized Proced (04/05/25 ) Complete Blood Count (04/06/25 04:00) Basic Metabolic Panel (04/06/25 04:00) Magnesium (04/06/25 04:00) Lipid Panel (04/06/25 04:00) Echo 2d Mode Cardiac Dop (04/05/25 17:23) Nitroglycerin Sublingual (Ntrostat Subli (04/05/25 17:30) Ondansetron Hcl (Zofran) (04/05/25 17:30) Electrocardigram (04/06/25 04:00) Troponin-I Hs (04/06/25 04:00) Cardiac Rehabilitation - Outpa (04/05/25 ) Nitroglycerin Sublingual (Ntrostat Subli (04/05/25 17:30) Morphine Sulfate Injection (04/05/25 17:30) Stat Ekg For Chest Pain (04/05/25 17:23) Notify Of Changes From Base (04/05/25 17:23) Client Administrator For 24 Hours (04/05/25 17:23) Emergency Dysrhythmia Protocol (04/05/25 17:23) Rhythm Strips Once Every Shift (04/05/25 17:23) Oxygen By Nasal Cannula (04/05/25 17:23) * Wound Consult (04/05/25 ) Enoxaparin Sodium (Lovenox) (04/06/25 10:00) Vital Signs Date Time Temp Pulse Resp B/P (MAP) Pulse Ox O2 Delivery O2 Flow Rate FiO2 04/05/25 17:11 99/39 04/05/25 16:00 70 10 117/33 (61) 92 04/05/25 15:15 74 10 104/41 (62) 92 04/05/25 15:00 70 11 75/37 (50) 98 04/05/25 14:50 79 15 72/29 (43) 88 04/05/25 14:05 76 04/05/25 11:55 81 12 99/50 (66) 91 04/05/25 11:55 78 04/05/25 11:37 98.7 73 9 89/43 (58) 94 98.7 04/05/25 11:15 94 Nasal Cannula* 3 32 04/05/25 11:15 94 Nasal Cannula* 3 32 04/05/25 11:15 74 04/05/25 11:12 97.7 80 16 102/70 96 97.7 04/05/25 10:58 73 Laboratory Tests Test 04/05/25 11:30 Lactic Acid Level 1.0 mmol/L (0.4-2.0) White Blood Count 4.1 10^3/uL (4.4-10.8) L Medications Medications Dose Ordered Sig/Margarito Route Start Time Stop Time Status Last Admin Dose Admin Cefepime HCl 50 ml @ 50 mls/hr ONCE ONCE IV 04/05/25 11:30 04/05/25 12:29 DC 04/05/25 11:50 Norepinephrine Bitartrate 250 ml @ 3.75 mls/hr Q24H IV 04/05/25 16:45 04/05/25 17:11 Departure 1 Departure Time of Disposition: 11:58 Impression: Primary Impression: Chest pain of unknown etiology Additional Impression: ESRD on dialysis Disposition: ADMITTED INPATIENT Admit to: Med Surg Condition: Guarded Critical Care Note Critical Care Time?: Yes (90 min-critical care time only) Stability Stability form required: No Heart Score Heart Score: Heart Score Response (Comments) Value History Moderate Suspicious 1 EKG N/A 0 Age >65 2 Risk Factors 1 or 2 risk factors 1 Troponin Normal limit 0 Total 4 I personally scribed for LINDA TOBAR MD ([email or web address]) on 04/05/25 at 11:05. Electronically submitted by Giselle Watson ([facility]). I personally scribed for LINDA TOBAR MD ([email or web address]) on 04/05/25 at 11:15. Electronically submitted by Amrita Zavala ([facility]). LINDA TOBAR MD Apr 05, 2025 11:05
[2025-04-05 11:15] VITALS: O2SAT 94
--- NOTE | 2025-04-05 11:46 | DVH ---
EXAM: XY CHEST PORTABLE Indication: sob Technique: Single frontal view of the chest was obtained Comparison: XY CHEST PORTABLE on DOS: 12/07/24, XR RIBS BILATERAL on DOS: 10/23/24, XY CHEST PORTABLE o n DOS: 03/12/24, CT CHEST/ABD/PEL on DOS: 12/06/23, XY CHEST PORTABLE on DOS: 11/09/23 FINDINGS: Lines and Tubes: Left central venous catheter tip projects over the cavoatrial Lungs: Diffuse interstitial opacities Pleura: No effusion. No pneumothorax. Cardiomediastinal contours: Cardiomegaly. Atherosclerotic vascular calcifications of the thoracic ao rta are noted. Bones: No acute osseous abnormality. IMPRESSION: Cardiomegaly with diffuse interstitial opacities.
[2025-04-05 11:48] LABS: Hematocrit 28.0 % (36.0-46.0); Hemoglobin 9.1 g/dL (12.2-16.2); Mean Corpuscular Hemoglobin 31.9 pg (28.0-32.0); Mean Corpuscular Volume 98.1 fL (80.0-100.0)
[2025-04-05] MEDS: CEFEPIME 1GM/50ML 50 ML IV ONE (11:50)
--- NOTE | 2025-04-05 11:58 | ECG ---
[facility] Test Date: 2025-04-05 Test Time: 10:56:19 Pat Name: RACQUEL SAEZ Department: [facility] ED Patient ID: [id number] Room: 0234T Gender: F Supervisory Aide: SWATI : 1955 Requested By: LINDA TOBAR Order Number: [id number] Reading MD: Kris Carlisle Measurements Intervals [place] Rate: 73 P: 164 [place]: 173 QRS: -20 QRSD: 116 T: 105 QT: 414 QTc: 457 Interpretive Statements Sinus or ectopic atrial rhythm Nonspecific intraventricular conduction delay Inferior infarct, old Lateral leads are also involved Electronically Signed On 04-11-2025 21:47:12 PDT by Kris Carlisle Please click the below link to view image of tracing.
--- NOTE | 2025-04-05 11:58 | ECG ---
[facility] Test Date: 2025-04-05 Test Time: 11:54:25 Pat Name: RACQUEL SAEZ Department: [facility] ED Patient ID: [id number] Room: 0234T Gender: F Nuclear Medicine Supervisor: SWATI : 1955 Requested By: LINDA TOBAR Order Number: [id number] Reading MD: Kris Carlisle Measurements Intervals [place] Rate: 78 P: 90 NV: 177 QRS: 0 QRSD: 113 T: 49 QT: 405 QTc: 462 Interpretive Statements Sinus rhythm Ventricular premature complex Incomplete left bundle branch block Electronically Signed On 04-11-2025 21:47:15 PDT by Kris Carlisle Please click the below link to view image of tracing.
[2025-04-05 12:02] LABS: INR 1.08 (0.9-1.15); Partial Thromboplastin Time 33.6 SEC (24.5-34.5); Prothrombin Time 11.4 sec (9.3-11.8)
[2025-04-05 12:09] LABS: Alanine Aminotransferase < 9 U/L (7-40); Albumin 3.4 g/dL (3.2-4.8); Alkaline Phosphatase 387 U/L (46-116); Anion Gap 13 (5-15); BUN/Creatinine Ratio 9.5 (10.0-20.0); Bilirubin, Total < 0.2 mg/dL (0.2-1.0); Blood Urea Nitrogen 55 mg/dL (9-23); Calcium 9.0 mg/dL (8.7-10.4); Carbon Dioxide 22 mmol/L (20-31); Chloride 96 mmol/L (98-107); Potassium 5.3 mmol/L (3.5-5.1); Sodium 131 mmol/L (136-145); Total Protein 6.9 g/dL (5.7-8.2)
[2025-04-05 12:24] LABS: Total Cells Counted 100.0 (100)
[2025-04-05 12:25] LABS: Anisocytosis Slight
[2025-04-05 12:35] LABS: Glucose 74 mg/dL (74-106)
[2025-04-05] MEDS ORDERED: CEFEPIME 1GM/50ML 50 ML IV SCH (14:00)
--- NOTE | 2025-04-05 14:30 | ECG ---
[facility] Test Date: 2025-04-05 Test Time: 14:02:33 Pat Name: RACQUEL SAEZ Department: [facility] ED Room: 0234T Gender: F Systems Software Manager: SWATI : 1955 Requested By: LINDA TOBAR Order Number: [id number] Reading MD: Kris Carlisle Measurements Intervals [place] Rate: 76 P: 85 [place]: 177 QRS: 0 QRSD: 113 T: 53 QT: 415 QTc: 467 Interpretive Statements Sinus rhythm Incomplete left bundle branch block Electronically Signed On 04-11-2025 21:48:38 PDT by Kris Carlisle Please click the below link to view image of tracing.
[2025-04-05] MEDS: NOREPINEPHRINE 8 MG/250ML KIT 250 ML IV SCH (17:11)
[2025-04-05] MEDS ORDERED: MORPHINE SULFATE INJ 2 MG/ml SYRG IV PRN (17:30)
[2025-04-05] MEDS ORDERED: MORPHINE SULFATE 4 MG/ML SYR/VIAL IV PRN (17:30)
[2025-04-05] MEDS ORDERED: NITROGLYCERIN 0.4 MG SL TAB SL PRN ×2 (17:30)
[2025-04-05] MEDS ORDERED: ACETAMINOPHEN 325 MG TAB PO PRN (17:30)
--- NOTE | 2025-04-05 17:35 | DVHHP2 ---
History of Present Illness Reason for Visit: Chest pain History of Present Illness Patricia Arreguin is a 70-year-old female with past medical history of paraplegia, CAD, hypertension, COPD, CHF, bed-bound due to back surgery in 2018, NV, bipolar disorder, ESRD on HD (M/W/F) with Dr. Thornton, ventral umbilical hernia, tonsillectomy, hemorrhoids, and I & D on her decubitus ulcer who presents to the ED with chest pain x2 weeks. Patient reports that the pain is currently 9/10 sharp and intermittent in nature. She reports that there are no triggering or alleviating factors. She also reports that she fell 1 year ago and broke her hip and went to [facility] and they were not provider surgery. She also reports that she uses oxygen continuously 2 L via nasal cannula at home. Patient reports that she has not walked since 2018. Patient reports that she was at [facility] recently but does not recall with a diagnosed her with. She reports that her food demonstrator is Dr. Ozzie Will and intermediate school teacher is Dr. Thornton. Cardiovascular: CAD, CHF, HTN, NV Pulmonary: COPD Psych: Bipolar Renal/: Chronic renal failure Past Medical History Bed-bound due to back surgery for cyst removal in 2018 Paraplegia Ventral umbilical hernia Hemorrhoids Past Surgical History: Other ( I&D of decubitus ulcer and back surgery), Tonsillectomy Family History: Cancer, Other (Mom with a pacemaker and breast cancer. Dad with colon cancer.) Smoke: Quit ALCOHOL: none Drugs: None Lives: with Family Domestic Violence: Neg Review of Systems Cardiovascular: Chest Pain Allergies: Coded Allergies: Baclofen (Verified Allergy, Unknown, 11/07/23) Medications Current Medications Medications Dose Ordered Sig/Margarito Route Start Time Stop Time Status Last Admin Dose Admin Norepinephrine Bitartrate 250 ml @ 3.75 mls/hr Q24H IV 04/05/25 16:45 04/05/25 17:11 3.75 MLS/HR Exam Vital Signs Vital Signs Date Time Temp Pulse Resp B/P (MAP) Pulse Ox O2 Delivery O2 Flow Rate FiO2 04/05/25 17:11 99/39 04/05/25 16:00 70 10 92 04/05/25 11:37 98.7 98.7 04/05/25 11:15 Nasal Cannula* 3 32 General Appearance: Alert, Oriented X3, Cooperative, No acute distress HEENT: Atraumatic, PERRLA, EOMI Respiratory: Normal air movement Cardiovascular: Regular rate, Normal S1, Normal S2, No murmurs Abdominal: Normal bowel sounds, Soft Extremities: No cyanosis Neuro: Normal speech, Sensation intact Psych/Mental Status: Mental status NL, Mood NL Labs/Xrays Labs Test 04/05/25 14:42 04/05/25 11:30 Range/Units Troponin I High Sensitivity 6 </=34 ng/L White Blood Count 4.1 L 4.4-10.8 10^3/uL Red Blood Count 2.85 L 4.0-5.20 10^6/uL Hemoglobin 9.1 L 12.2-16.2 g/dL Hematocrit 28.0 L 36.0-46.0 % Mean Corpuscular Volume 98.1 80.0-100.0 fL Mean Corpuscular Hemoglobin 31.9 28.0-32.0 pg Mean Corpuscular Hemoglobin Concent 32.5 32.0-36.0 g/dL Red Cell Distribution Width 17.3 H 11.8-14.3 % Platelet Count 123 L 140-450 10^3/uL Mean Platelet Volume 10.6 6.9-10.8 fL Neutrophils (%) (Auto) 37.0-80.0 % Lymphocytes (%) (Auto) 10.0-50.0 % Monocytes (%) (Auto) 0.0-12.0 % Basophils (%) (Auto) 0.0-2.0 % Neutrophils # (Auto) 1.6-8.6 10 ^3/uL Lymphocytes # (Auto) 0.4-5.4 10 ^3/uL Monocytes # (Auto) 0-1.3 10 ^3/uL Differential Total Cells Counted 100.0 100 Neutrophils % (Manual) 47 37.0-80.0 Band Neutrophils % (Manual) 0 Lymphocytes % (Manual) 33 10.0-50.0 Monocytes % (Manual) 20 H 0-12 Eosinophils % (Manual) 0 0-7 Basophils % (Manual) 0 0.0-2.0 Metamyelocytes % (manual) 0 Myelocytes % (Manual) 0 Promyelocytes % (Manual) 0 Blast Cells % (Manual) 0 Reactive Lymphocytes 0 Platelet Estimate Decreased Large Platelets Few Anisocytosis (manual) Slight Prothrombin Time 11.4 9.3-11.8 sec Prothrombin Time INR 1.08 0.9-1.15 Activated Partial Thromboplast Time 33.6 24.5-34.5 SEC Sodium Level 131 L 136-145 mmol/L Potassium Level 5.3 H 3.5-5.1 mmol/L Chloride Level 96 L 98-107 mmol/L Carbon Dioxide Level 22 20-31 mmol/L Anion Gap 13 5-15 Blood Urea Nitrogen 55 H 9-23 mg/dL Creatinine 5.81 H 0.550-1.02 mg/dL Glomerular Filtration Rate Calc 7 >90 mL/min BUN/Creatinine Ratio 9.5 L 10.0-20.0 Serum Glucose 74 74-106 mg/dL Lactic Acid Level 1.0 0.4-2.0 mmol/L Calcium Level 9.0 8.7-10.4 mg/dL Total Bilirubin < 0.2 L 0.2-1.0 mg/dL Aspartate Amino Transferase (AST) 12 L 13-40 U/L Alanine Aminotransferase (ALT) < 9 7-40 U/L Alkaline Phosphatase 387 H 46-116 U/L Total Protein 6.9 5.7-8.2 g/dL Albumin 3.4 3.2-4.8 g/dL Hepatitis B Surface Antigen Negative Negative EXAM: XY CHEST PORTABLE Indication: sob Technique: Single frontal view of the chest was obtained Comparison: XY CHEST PORTABLE on DOS: 12/07/24, XR RIBS BILATERAL on DOS: 10/23/24, XY CHEST PORTABLE on DOS: 03/12/24, CT CHEST/ABD/PEL on DOS: 12/06/23, XY CHEST PORTABLE on DOS: 11/09/23 FINDINGS: Lines and Tubes: Left central venous catheter tip projects over the cavoatrial Lungs: Diffuse interstitial opacities Pleura: No effusion. No pneumothorax. Cardiomediastinal contours: Cardiomegaly. Atherosclerotic vascular calcifications of the thoracic aorta are noted. Bones: No acute osseous abnormality. IMPRESSION: Cardiomegaly with diffuse interstitial opacities. SEPSIS Sepsis Screen Date sepsis recognized/suspect: Apr 05, 2025 Time Sepsis recognized/suspect: 1120 Recent Procedure: No On Antibiotic Therapy: No Respiratory Rate >20: No Heart Rate >90: No Temp<36 C (96.8 F) or >38.3 C: No SBP <90 or MAP <65 mmHG: No New Acute Mental Status Change: No Is the patient on CPAP, BIPAP,: No Physician Orders Electrocardigram (04/05/25 14:05) Urinalysis (04/05/25 11:05) Chest Portable (04/05/25 11:05) Accucheck (04/05/25 11:05) Blood Culture (04/05/25 11:05) Notify Md If Map <65 Or Bp<90 (04/05/25 11:05) If Map<65 Start Vasopressor (04/05/25 11:05) Sepsis Reassesment After Fluid (04/05/25 12:05) *[facility] (04/05/25 11:05) Hemodialysis Orders (04/05/25 13:38) Norepinephrine 8 Mg/250ml Kit (Levophed) (04/05/25 16:45) Vital Signs Date Time Temp Pulse Resp B/P (MAP) Pulse Ox O2 Delivery O2 Flow Rate FiO2 04/05/25 17:11 99/39 04/05/25 16:00 70 10 117/33 (61) 92 04/05/25 15:15 74 10 104/41 (62) 92 04/05/25 15:00 70 11 75/37 (50) 98 04/05/25 14:50 79 15 72/29 (43) 88 04/05/25 14:05 76 04/05/25 11:55 81 12 99/50 (66) 91 04/05/25 11:55 78 04/05/25 11:37 98.7 73 9 89/43 (58) 94 98.7 04/05/25 11:15 94 Nasal Cannula* 3 32 04/05/25 11:15 94 Nasal Cannula* 3 32 04/05/25 11:15 74 04/05/25 11:12 97.7 80 16 102/70 96 97.7 04/05/25 10:58 73 Laboratory Tests Test 04/05/25 11:30 Lactic Acid Level 1.0 mmol/L (0.4-2.0) White Blood Count 4.1 10^3/uL (4.4-10.8) L Medications Medications Dose Ordered Sig/Margarito Route Start Time Stop Time Status Last Admin Dose Admin Cefepime HCl 50 ml @ 50 mls/hr ONCE ONCE IV 04/05/25 11:30 04/05/25 12:29 DC 04/05/25 11:50 50 MLS/HR Norepinephrine Bitartrate 250 ml @ 3.75 mls/hr Q24H IV 04/05/25 16:45 04/05/25 17:11 3.75 MLS/HR Assessment/Plan Assessment/Plan Assessment NSTEMI likely type 2 Anemia likely due to chronic renal failure Cardiomegaly Probable pneumonia Elevated ALP Hyponatremia Hyperkalemia Thrombocytopenia Acute on chronic renal failure on dialysis (M/W/F) Acute hypoxic respiratory failure on supportive oxygen 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 History of chronic fracture of the right inferior pubic ramus History of paraplegia History of CAD, patient denies and claims she does not have any stents in her heart History of hypertension History of COPD History of CHF History of bed-bound due to back surgery in 2018 for cyst removal History of NV History of bipolar disease History of ventral umbilical hernia History of tonsillectomy History of hemorrhoids History of I&D for decubitus ulcer History of tobacco use Plan Admit to ICU Supportive oxygen Pain management Antiemetics Chest x-ray noted Vasopressors to keep maps greater than 65 HD per Nephro IV antibiotics-Zosyn Wound consult for sacral wound EKG Trend troponins UA UDS TSH Mag level Aspirin + statin Echo ordered Lipid panel A1c Strict I&Os Daily weights Diet Home medications reconciled DVT prophylaxis-Lovenox PUD prophylaxis-PPIs Discussed plan of care with patient and nurse Cardiac consult Nephrology consulted by ED Rounding hospitalist to resume antihypertensives when patient not hypotensive Counseled patient on continuance of tobacco cessation [id number] Behavior change smoking greater than 10 minutes about use of other options also gave option of nicotine patch [id number] Preventive counseling healthy eating habits, physical activity, and regular checkups Plan discussed with: Patient Date of Service: Apr 05, 2025 Billing Provider: BRET BAUTISTA Common Visit Codes: [id number] INP/OBS CARE (HIGH) Secondary Visit Codes: [id number] COUNSELING IND, [id number] CHNG SMOKING >10MIN ENEIDA [employer] Apr 05, 2025 17:35
[2025-04-05] MEDS: EPOETIN ALFA-EPBX 10,000 UNIT/1ML VIAL IV ONE (18:15)
[2025-04-05 20:07] VITALS: PULSE 82; RESP 18; O2SAT 94
[2025-04-05 21:35] VITALS: O2SAT 94
[2025-04-05] MEDS: PIPERACILLIN-TAZOB 3.375GM 100 ML IV SCH (22:36)
[2025-04-05] MEDS: ATORVASTATIN 20 MG TAB PO SCH (22:36)
--- NOTE | 2025-04-05 23:07 | DVHINCON2 ---
Date of service: Apr 05, 2025 Referring Physician Salma Reason for Consultation Chest pain History of Present Illness This is a 70 year old female with a past medical history of paraplegia s/p spinal surgery in 2018, COPD (on home oxygen), HTN and ESRD with dialysis M,W,F brought in by EMS due to left anterior chest wall pain that started last night. Patient reports pain is constant, non radiating and worsens when laying flat. EMS reports patient did complaint of left arm pain but states has had this pain in the past and f/u with consumer insights specialist. Patient rates pain a 8/10 on the pain scale and has no alleviating factors. HGB 9.1, HCT 28, TROP 89 > 89 >6. Chest x- ray shows cardiomegaly with diffuse interstitial opacities. Patient was admitted to the hospital. I am asked to consult on this patient. Family History: Alcoholism G8 MOTHER Cancer G8 MOTHER (BREAST) G8 FATHER (PROSTATE) G8 SISTER (BREAST) G8 BROTHER G8 BROTHER G8 BROTHER FH: breast cancer G8 MOTHER, Onset:Unknown FH: prostate cancer Family history: Cardiovascular disease G8 FATHER Allergies: Coded Allergies: Baclofen (Verified Allergy, Unknown, 11/07/23) Home Meds Active Scripts Ampicillin (Ampicillin) 500 Mg Cap, 1 CAP PO TID for 10 Days, #30 CAP Prov:HATTIE ROLLINS [employer] 03/16/24 Sulfamethoxazole W/Trimethopri (Bactrim Ds Tablet) 1 Tab Tb, 1 TAB PO BID for 10 Days, #20 TAB Prov:HATTIE ROLLINS NP 03/16/24 Albuterol Sulfate (Albuterol Sulfate) 0.083 % Neb, 1 VIAL NEB Q4HPRN, #50 VIAL 2 Refills Prov:LUANNE GILL MD 11/10/23 Isosorbide Mononitrate (Isosorbide Mononitrate Er) 30 Mg Tab, 1 TAB PO DAILY, #30 TAB Prov:AZAR ALBA MD 09/01/21 Nifedipine (Nifedipine Er) 90 Mg Tab, 1 TAB PO DAILY, #30 TAB Prov:AZAR ALBA MD 09/01/21 Ascorbic Acid (VITAMIN C TABLET) 500 Mg Tb, 500 MG PO BID for 30 Days Prov:DASHAWN PELAEZ MD 09/12/18 Reported Medications Fluconazole (Fluconazole) 150 Mg Tab, 1 TAB PO DAILY for 7 Days, #7 MG 11/09/23 Triamcinolone Acetonide (Kenalog) 1 Applic Ap, 1 APPLIC TOP BID 11/09/23 Ondansetron Odt 4MG Tab (ZOFRAN PO) 4 Mg Tb, 1 TAB PO DAILY 11/09/23 Tenapanor HCl (Xphozah) 30 Mg Tab, 1 TAB PO BID 11/09/23 B-Complex W/ C & Folic Acid (Marisela-Tita Rx) Tab, 1 TAB PO DAILY 11/09/23 Lisinopril (Lisinopril) 20 Mg Tab, 1 TAB PO DAILY 11/09/23 Quetiapine Fumerate (Seroquel) 100 Mg Tab, 1 TAB PO DAILY 11/09/23 Hydralazine HCl (Hydralazine HCl) 25 Mg Tab, 1 TAB PO TID 11/07/23 Carvedilol (Carvedilol) 12.5 Mg Tab, 1 TAB PO BID 11/07/23 Oxycodone W/ Acetaminophen (Apap/Oxycodone) 1 Tab Tab, 10-325 MG PO QIDPRN PRN for back pain 08/31/21 Carisoprodol (Soma) 350 Mg Tab, 350 MG PO QID 03/07/19 Clopidogrel Bisulfate (CLOPIDOGREL) 75 Mg Tab, 75 MG PO DAILY 03/07/19 Levothyroxine Sodium (Levothyroxine Sodium) 200 Mcg Tab, 200 MCG PO QAM Dose verified against [facility] record 08/18/18 Docusate Sodium (DOCQLACE) 100 Mg Cap, 100 MG PO TID 08/05/18 Temazepam (Temazepam) 30 Mg Cap, 15 MG PO HS PRN for FOR INSOMNIA 04/17/18 Alprazolam (Xanax) 0.5 Mg Tb, 0.5 TAB PO BID 07/14/17 Cinacalcet Hydrochloride (Sensipar) 60 Mg Tab, 60 MG PO TID Per patient, she takes cinacalcet 60 mg tab, TID before meals. 01/08/16 Sevelamer Carbonate (Renvela) 800 Mg Tab, 2 TAB PO TID 01/08/16 Pantoprazole Sodium Sesquihydr (Protonix) 40 Mg Tab, 40 MG PO DAILY 01/08/16 Doxepin Hcl (Doxepin Hcl) 50 Mg Cap, 3 CAP PO QPM per patient 12/20/12 Atorvastatin Calcium (Lipitor) 10 Mg Tab, 1 TAB PO DAILY 12/20/12 Current Medications Current Medications Medications (Trade) Dose Ordered Sig/Margarito Route PRN Reason Start Time Stop Time Status Last Admin Cefepime HCl 50 ml @ 12.5 mls/hr Q8HR IV 04/05/25 14:00 04/05/25 12:07 DC Norepinephrine Bitartrate 250 ml @ 3.75 mls/hr Q24H IV 04/05/25 16:45 04/05/25 17:11 Piperacillin Sod/ Tazobactam Sod 100 ml @ 25 mls/hr Q12HR IV 04/05/25 22:00 Aspirin 81 mg DAILY PO 04/05/25 17:40 Atorvastatin Calcium (Lipitor) 40 mg HS PO 04/05/25 22:00 Morphine Sulfate 2 mg Q30MP PRN IV FOR CHEST PAIN 04/05/25 17:30 Acetaminophen (Tylenol Tablet) 650 mg Q6HP PRN PO MILD PAIN (1-3 PAIN SCALE) 04/05/25 17:30 Nitroglycerin (Ntrostat Sublingual) 0.4 mg Q5MINP PRN SL FOR CHEST PAIN 04/05/25 17:30 Ondansetron HCl (Zofran) 4 mg Q4HP PRN IV NAUSEA / VOMITING 04/05/25 17:30 Nitroglycerin (Ntrostat Sublingual) 0.4 mg Q5MINP PRN SL FOR CHEST PAIN 04/05/25 17:30 04/05/25 17:41 DC Morphine Sulfate 2 mg Q30M PRN IV FOR CHEST PAIN 04/05/25 17:30 04/05/25 17:41 DC Enoxaparin Sodium (Lovenox) 30 mg DAILY SC 04/06/25 10:00 Multivit/Ca Carb/ B Cmplx/FA/Prenat (Nephro-Tita Tablet) 1 tab DAILY PO 04/06/25 10:00 Clopidogrel Bisulfate (Plavix) 75 mg DAILY PO 04/06/25 10:00 Quetiapine Fumarate (SEROquel TABLET) 100 mg DAILY PO 04/06/25 10:00 Patient Own Medication 3 cap HS PO 04/05/25 22:00 Levothyroxine Sodium (Synthroid Tablet) 200 mcg QAM@0600 PO 04/06/25 06:00 Sevelamer HCl (Renagel) 1,600 mg TIDWM PO 04/06/25 08:00 Review of Systems Constitutional: denies: chills, diaphoresis, fatigue, fever, malaise, sweats, weakness, others EENTM: denies: blurred vision, double vision, ear bleeding, ear discharge, ear drainage, ear pain, ear ringing, eye pain, eye redness, hearing loss, mouth pain, mouth swelling, nasal discharge, nose bleeding, nose congestion, nose pain, photophobia, tearing, throat pain, throat swelling, voice changes, others Respiratory: denies: cough, hemoptysis, orthopnea, SOB at rest, shortness of breath, SOB with excertion, stridor, wheezing, others Cardiovascular: denies: chest pain, dizzy spells, diaphoresis, Dyspnea on exertion, edema, irregular heart beat, left arm pain, lightheadedness, palpitations, PND, syncope, others Gastrointestinal: denies: abdomen distended, abdominal pain, blood streaked bowels, constipated, diarrhea, dysphagia, difficulty swallowing, hematemesis, melena, nausea, poor appetite, poor fluid intake, rectal bleeding, rectal pain, vomiting, others Genitourinary: denies: abnormal vagina bleeding, burning, dyspareunia, dysuria, flank pain, frequency, hematuria, incontinence, pain, , vagina discharge, urgency, others Neurological: denies: dizziness, fainting, headache, left sided numbness, left sided weakness, numbness, paresthesia, pre-existing deficit, right sided numbness, right sided weakness, seizure, speech problems, tingling, tremors, weakness, others Musculoskeletal: denies: back pain, gout, joint pain, joint swelling, muscle pain, muscle stiffness, neck pain, others Integumetry: denies: bruises, change in color, change in hair/nails, dryness, laceration, lesions, lumps, rash, wounds, others Allergic/Immunocompromised: denies: Difficulty Healing, Frequent Infections, Hives, Itching, others Hematologic/Lymphatic: denies: anemia, blood clots, easy bleeding, easy bruising, swollen glands, others Endocrine: denies: excessive hunger, excessive sweating, excessive thirst, excessive urination, flushing, intolerance to cold, intolerance to heat, unexplained weight gain, unexplained weight loss, others Psychiatric: denies: anxiety, bipolar disorder, depression, hopeless, panic disorder, schizophrenia, sleepless, suicidal, others All Other Systems: Reviewed and Negative Vital Signs Vital Signs Date Time Temp Pulse Resp B/P (MAP) Pulse Ox O2 Delivery O2 Flow Rate FiO2 04/05/25 21:15 89 91/40 (57) 04/05/25 20:07 18 94 Nasal Cannula* 3 32 04/05/25 20:07 98.1 98.1 Physical Exam GENERAL: Alert and oriented x 3. No acute distress. Paraplegic. EYES: PERRL, EOMI. Anicteric. HENT: Moist mucous membranes. LUNGS: Clear to auscultation bilaterally. CARDIOVASCULAR: Regular rate and rhythm. ABDOMEN: Soft, nontender and nondistended. EXTREMITIES: No edema. NEUROLOGIC: No focal neurological deficits. SKIN: Wounds (Decubitus). Labs/Diagnostic Data Labs Test 04/05/25 14:42 04/05/25 11:30 Range/Units Troponin I High Sensitivity 6 </=34 ng/L White Blood Count 4.1 L 4.4-10.8 10^3/uL Red Blood Count 2.85 L 4.0-5.20 10^6/uL Hemoglobin 9.1 L 12.2-16.2 g/dL Hematocrit 28.0 L 36.0-46.0 % Mean Corpuscular Volume 98.1 80.0-100.0 fL Mean Corpuscular Hemoglobin 31.9 28.0-32.0 pg Mean Corpuscular Hemoglobin Concent 32.5 32.0-36.0 g/dL Red Cell Distribution Width 17.3 H 11.8-14.3 % Platelet Count 123 L 140-450 10^3/uL Mean Platelet Volume 10.6 6.9-10.8 fL Neutrophils (%) (Auto) 37.0-80.0 % Lymphocytes (%) (Auto) 10.0-50.0 % Monocytes (%) (Auto) 0.0-12.0 % Basophils (%) (Auto) 0.0-2.0 % Neutrophils # (Auto) 1.6-8.6 10 ^3/uL Lymphocytes # (Auto) 0.4-5.4 10 ^3/uL Monocytes # (Auto) 0-1.3 10 ^3/uL Differential Total Cells Counted 100.0 100 Neutrophils % (Manual) 47 37.0-80.0 Band Neutrophils % (Manual) 0 Lymphocytes % (Manual) 33 10.0-50.0 Monocytes % (Manual) 20 H 0-12 Eosinophils % (Manual) 0 0-7 Basophils % (Manual) 0 0.0-2.0 Metamyelocytes % (manual) 0 Myelocytes % (Manual) 0 Promyelocytes % (Manual) 0 Blast Cells % (Manual) 0 Reactive Lymphocytes 0 Platelet Estimate Decreased Large Platelets Few Anisocytosis (manual) Slight Prothrombin Time 11.4 9.3-11.8 sec Prothrombin Time INR 1.08 0.9-1.15 Activated Partial Thromboplast Time 33.6 24.5-34.5 SEC Sodium Level 131 L 136-145 mmol/L Potassium Level 5.3 H 3.5-5.1 mmol/L Chloride Level 96 L 98-107 mmol/L Carbon Dioxide Level 22 20-31 mmol/L Anion Gap 13 5-15 Blood Urea Nitrogen 55 H 9-23 mg/dL Creatinine 5.81 H 0.550-1.02 mg/dL Glomerular Filtration Rate Calc 7 >90 mL/min BUN/Creatinine Ratio 9.5 L 10.0-20.0 Serum Glucose 74 74-106 mg/dL Hemoglobin A1c 4.5 <5.7 % A1C Lactic Acid Level 1.0 0.4-2.0 mmol/L Calcium Level 9.0 8.7-10.4 mg/dL Total Bilirubin < 0.2 L 0.2-1.0 mg/dL Aspartate Amino Transferase (AST) 12 L 13-40 U/L Alanine Aminotransferase (ALT) < 9 7-40 U/L Alkaline Phosphatase 387 H 46-116 U/L Total Protein 6.9 5.7-8.2 g/dL Albumin 3.4 3.2-4.8 g/dL Thyroid Stimulating Hormone (TSH) 8.06 H 0.55-4.78 uIU/mL Free Thyroxine (T4) Calculated 0.49 L 0.89-1.76 ng/dL Hepatitis B Surface Antigen Negative Negative Assessment NSTEMI likely type 2. Anemia likely due to chronic renal failure. Cardiomegaly. Probable pneumonia. Elevated ALP. Hyponatremia. Hyperkalemia. Thrombocytopenia. Acute on chronic renal failure on dialysis (M/W/F). Acute hypoxic respiratory failure on supportive oxygen. 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 History of chronic fracture of the right inferior pubic ramus. History of paraplegia. History of CAD, patient denies and claims she does not have any stents in her heart. History of hypertension. History of COPD. History of CHF. History of bed-bound due to back surgery in 2018 for cyst removal. History of CT. History of bipolar disease. History of ventral umbilical hernia. History of tonsillectomy. History of hemorrhoids. History of I&D for decubitus ulcer. History of tobacco use. Plan/Recommendation I agree with your ongoing assessment and care of plan. Echocardiogram. Aspirin, Lipitor,Plavix. DVT prophylactics. Morphine for pain management. Vasopressors for hemodynamic support. IV antibiotics as ordered. Additional plan as per the hospital course. Critical care time of 90 minutes provided to include time spent evaluation of patient at bedside, when appropriate patient/family education for diagnosis, treatment plan, review of pertinent medical information and discussion of care with specialty providers and PCP. Plan discussed with: Patient WENDY COREAS MD Apr 05, 2025 22:10
[2025-04-05 23:30] VITALS: PULSE 97; RESP 11; O2SAT 86
[2025-04-05 23:44] VITALS: BP 166/52; PULSE 94; RESP 14; TEMP 98.5; O2SAT 94
[2025-04-05 23:45] VITALS: PULSE 91; RESP 12; O2SAT 93
[2025-04-06] VITALS (101 sets, daily range): BP systolic 84–159; BP diastolic 38–78; PULSE 70–103; RESP 7–20; TEMP 98–98.5; O2SAT 86–100
[2025-04-06] MEDS: KETOROLAC TROMETH 30 MG/ML 1ML VIAL IV ONE (00:35)
[2025-04-06] MEDS: HYDROmorphone HCL 2 MG/ML VL/or syr IV PRN (02:15)
[2025-04-06 03:47] LABS: Hemoglobin 8.3 g/dL (12.2-16.2)
[2025-04-06 03:49] LABS: Hematocrit 25.3 % (36.0-46.0); Mean Corpuscular Hemoglobin 31.9 pg (28.0-32.0); Mean Corpuscular Volume 96.8 fL (80.0-100.0)
[2025-04-06 03:57] LABS: Calcium 9.0 mg/dL (8.7-10.4); Chloride 98 mmol/L (98-107); Potassium 4.0 mmol/L (3.5-5.1); Sodium 138 mmol/L (136-145)
[2025-04-06 03:58] LABS: Anion Gap 11 (5-15); Carbon Dioxide 29 mmol/L (20-31)
[2025-04-06 04:03] LABS: BUN/Creatinine Ratio 9.0 (10.0-20.0); Blood Urea Nitrogen 28 mg/dL (9-23); Glucose 95 mg/dL (74-106)
[2025-04-06 04:04] LABS: Magnesium 2.3 mg/dL (1.6-2.6)
[2025-04-06 04:16] LABS: Cholesterol 150 mg/dL (< 200); HDL Cholesterol 58 mg/dL (40-59)
[2025-04-06 04:17] LABS: Triglycerides 162 mg/dL (< 150)
[2025-04-06] MEDS: LEVOTHYROXINE SODIUM 100 MCG TAB PO SCH (06:08)
[2025-04-06 06:52] LABS: Total Cells Counted 100.0 (100)
[2025-04-06] MEDS: SEVELAMER 800 MG TAB PO SCH (09:11)
--- NOTE | 2025-04-06 09:19 | DVHPN2 ---
Subjective still cp Reviewed: Care Plan, H&P, Labs, Medications, Previous Orders, Radiology Changes from previous H/P or p: No Changes Cardiovascular: Chest Pain Objective Vitals Vital Signs Date Time Temp Pulse Resp B/P (MAP) Pulse Ox O2 Delivery O2 Flow Rate FiO2 04/06/25 08:00 10 98 Nasal Cannula* 4 36 04/06/25 06:45 74 106/52 (70) 04/06/25 04:30 98.1 98.1 Intake/Output Intake and Output 04/06/25 07:00 Intake Total 442.5 ml Output Total 0 ml Balance 442.5 ml Intake Oral 240 ml IV Total 202.5 ml Output Urine Total 0 ml General Appearance: Alert, Oriented X3, Cooperative, No acute distress Lungs: Clear to auscultation Cardiovascular: Regular rate Abdomen: Normal bowel sounds, Soft, No tenderness Medications Current Medications Medications Dose Ordered Sig/Margarito Route Start Time Stop Time Status Last Admin Dose Admin Norepinephrine Bitartrate 250 ml @ 3.75 mls/hr Q24H IV 04/05/25 16:45 04/05/25 17:11 3.75 MLS/HR Piperacillin Sod/ Tazobactam Sod 100 ml @ 25 mls/hr Q12HR IV 04/05/25 22:00 04/05/25 22:36 25 MLS/HR Aspirin 81 mg DAILY PO 04/05/25 17:40 Atorvastatin Calcium 40 mg HS PO 04/05/25 22:00 04/05/25 22:36 40 MG Morphine Sulfate 2 mg Q30MP PRN IV 04/05/25 17:30 Acetaminophen 650 mg Q6HP PRN PO 04/05/25 17:30 Nitroglycerin 0.4 mg Q5MINP PRN SL 04/05/25 17:30 Ondansetron HCl 4 mg Q4HP PRN IV 04/05/25 17:30 Enoxaparin Sodium 30 mg DAILY SC 04/06/25 10:00 Multivit/Ca Carb/ B Cmplx/FA/Prenat 1 tab DAILY PO 04/06/25 10:00 Clopidogrel Bisulfate 75 mg DAILY PO 04/06/25 10:00 Quetiapine Fumarate 100 mg DAILY PO 04/06/25 10:00 Patient Own Medication 3 cap HS PO 04/05/25 22:00 Levothyroxine Sodium 200 mcg QAM@0600 PO 04/06/25 06:00 04/06/25 06:08 200 MCG Sevelamer HCl 1,600 mg TIDWM PO 04/06/25 08:00 04/06/25 09:11 1,600 MG Hydromorphone HCl 0.5 mg Q4HPRN PRN IV 04/06/25 01:15 04/06/25 06:15 0.5 MG Laboratory Results Laboratory Tests 04/06/25 03:00 Chemistry Test 04/05/25 11:30 04/06/25 03:00 Albumin 3.4 g/dL (3.2-4.8) Calcium Level 9.0 mg/dL (8.7-10.4) 9.0 mg/dL (8.7-10.4) Total Protein 6.9 g/dL (5.7-8.2) Magnesium Level 2.3 mg/dL (1.6-2.6) Coagulation Test 04/05/25 11:30 Prothrombin Time 11.4 sec (9.3-11.8) Prothrombin Time INR 1.08 (0.9-1.15) Activated Partial Thromboplast Time 33.6 SEC (24.5-34.5) Lipid panel Test 04/06/25 03:00 Cholesterol Level 150 mg/dL (< 200) HDL Cholesterol 58 mg/dL (40-59) Triglycerides Level 162 mg/dL (< 150) H LFT Test 04/05/25 11:30 Alanine Aminotransferase (ALT) < 9 U/L (7-40) Alkaline Phosphatase 387 U/L (46-116) H Aspartate Amino Transferase (AST) 12 U/L (13-40) L Total Bilirubin < 0.2 mg/dL (0.2-1.0) L HgA1c, TSH Test 04/05/25 11:30 Hemoglobin A1c 4.5 % A1C (<5.7) Thyroid Stimulating Hormone (TSH) 8.06 uIU/mL (0.55-4.78) H Assessment/Plan Assessment/Plan Chest pain Non-STEMI Hyponatremia Hyperkalemia End-stage renal disease on hemodialysis Bipolar disorder Decubitus ulcer Coronary artery disease Paraplegia Hypertension COPD CHF Anemia of chronic disease Thrombocytopenia plan wean off levophed. Chest x-ray. Urinalysis. Protonix. CBC. H&H. Troponin. Continue monitoring vital signs and oxygenation. Further plan per orders. Total critical care time 40 minutes Plan discussed with: Patient, Other (Nursing) Date of Service: Apr 06, 2025 Billing Provider: CESILIA MORENO MD Common Visit Codes: [id number] CARE 30-74 MIN CESILIA MORENO MD Apr 06, 2025 09:19
[2025-04-06] MEDS: CLOPIDOGREL BISULFATE 75 MG TAB PO SCH (09:54)
[2025-04-06] MEDS: B-COMPLEX W/ C & FOLIC ACID(NEPHROVITE TAB) PO SCH (09:55)
[2025-04-06] MEDS: ENOXAPARIN SOD 30 MG/0.3 ML SYRINGE SC SCH (09:56)
[2025-04-06] MEDS: PANTOPRAZOLE 40 MG TAB PO ONE (10:15)
[2025-04-06] MEDS: NOREPINEPHRINE 8 MG/250ML KIT 250 ML IV SCH (11:30)
[2025-04-06] MEDS: ALBUTEROL SULF 2.5 MG/0.5ML(0.5%) NEB SOLN NEB PRN (12:14)
[2025-04-06 12:42] LABS: Hematocrit 25.2 % (36.0-46.0); Hemoglobin 8.0 g/dL (12.2-16.2)
[2025-04-06] MEDS: CARISOPRODOL 350 MG TAB PO SCH (13:06)
--- NOTE | 2025-04-06 14:10 | DVHINCON2 ---
Date of service: Apr 06, 2025 Referring Physician Lulu Marsh NP Reason for Consultation ESRD History of Present Illness Mrs. Arreguin is a 70-year-old female with known history of ESRD, paraplegia, anemia presented for further evaluation and management of chest pain. I was notified by the emergency department yesterday and had prescribed hemodialysis orders for April 05. She is seen in the intensive care unit this afternoon she had a visitor at bedside. Patricia was able to communicate effectively and reports intermittent pain on the left side of her chest at times reported to be positional in nature. She denies shortness of breath, recent fevers or chills currently. Past Medical History ESRD Coronary artery disease COPD Heart failure Paraplegia Allergies: Coded Allergies: Baclofen (Verified Allergy, Unknown, 11/07/23) Home Meds Active Scripts Ampicillin (Ampicillin) 500 Mg Cap, 1 CAP PO TID for 10 Days, #30 CAP Prov:HATTIE ROLLINS NP 03/16/24 Sulfamethoxazole W/Trimethopri (Bactrim Ds Tablet) 1 Tab Tb, 1 TAB PO BID for 10 Days, #20 TAB Prov:HATTIE ROLLINS NP 03/16/24 Albuterol Sulfate (Albuterol Sulfate) 0.083 % Neb, 1 VIAL NEB Q4HPRN, #50 VIAL 2 Refills Prov:LUANNE GILL MD 11/10/23 Isosorbide Mononitrate (Isosorbide Mononitrate Er) 30 Mg Tab, 1 TAB PO DAILY, #3 0 TAB Prov:AZAR ALBA MD 09/01/21 Nifedipine (Nifedipine Er) 90 Mg Tab, 1 TAB PO DAILY, #30 TAB Prov:AZAR ALBA MD 09/01/21 Ascorbic Acid (VITAMIN C TABLET) 500 Mg Tb, 500 MG PO BID for 30 Days Prov:DASHAWN PELAEZ MD 09/12/18 Reported Medications Fluconazole (Fluconazole) 150 Mg Tab, 1 TAB PO DAILY for 7 Days, #7 MG 11/09/23 Triamcinolone Acetonide (Kenalog) 1 Applic Ap, 1 APPLIC TOP BID 11/09/23 Ondansetron Odt 4MG Tab (ZOFRAN PO) 4 Mg Tb, 1 TAB PO DAILY 11/09/23 Tenapanor HCl (Xphozah) 30 Mg Tab, 1 TAB PO BID 11/09/23 B-Complex W/ C & Folic Acid (Marisela-Tita Rx) Tab, 1 TAB PO DAILY 11/09/23 Lisinopril (Lisinopril) 20 Mg Tab, 1 TAB PO DAILY 11/09/23 Quetiapine Fumerate (Seroquel) 100 Mg Tab, 1 TAB PO DAILY 11/09/23 Hydralazine HCl (Hydralazine HCl) 25 Mg Tab, 1 TAB PO TID 11/07/23 Carvedilol (Carvedilol) 12.5 Mg Tab, 1 TAB PO BID 11/07/23 Oxycodone W/ Acetaminophen (Apap/Oxycodone) 1 Tab Tab, 10-325 MG PO QIDPRN PRN for back pain 08/31/21 Carisoprodol (Soma) 350 Mg Tab, 350 MG PO QID 03/07/19 Clopidogrel Bisulfate (CLOPIDOGREL) 75 Mg Tab, 75 MG PO DAILY 03/07/19 Levothyroxine Sodium (Levothyroxine Sodium) 200 Mcg Tab, 200 MCG PO QAM Dose verified against [facility] record 08/18/18 Docusate Sodium (DOCQLACE) 100 Mg Cap, 100 MG PO TID 08/05/18 Temazepam (Temazepam) 30 Mg Cap, 15 MG PO HS PRN for FOR INSOMNIA 04/17/18 Alprazolam (Xanax) 0.5 Mg Tb, 0.5 TAB PO BID 07/14/17 Cinacalcet Hydrochloride (Sensipar) 60 Mg Tab, 60 MG PO TID Per patient, she takes cinacalcet 60 mg tab, TID before meals. 01/08/16 Sevelamer Carbonate (Renvela) 800 Mg Tab, 2 TAB PO TID 01/08/16 Pantoprazole Sodium Sesquihydr (Protonix) 40 Mg Tab, 40 MG PO DAILY 01/08/16 Doxepin Hcl (Doxepin Hcl) 50 Mg Cap, 3 CAP PO QPM per patient 12/20/12 Atorvastatin Calcium (Lipitor) 10 Mg Tab, 1 TAB PO DAILY 12/20/12 Current Medications Current Medications Medications (Trade) Dose Ordered Sig/Margarito Route PRN Reason Start Time Stop Time Status Last Admin Norepinephrine Bitartrate 250 ml @ 3.75 mls/hr Q24H IV 04/05/25 16:45 04/06/25 11:29 DC 04/05/25 17:11 Piperacillin Sod/ Tazobactam Sod 100 ml @ 25 mls/hr Q12HR IV 04/05/25 22:00 04/06/25 09:55 Aspirin 81 mg DAILY PO 04/05/25 17:40 04/06/25 09:55 Atorvastatin Calcium (Lipitor) 40 mg HS PO 04/05/25 22:00 04/05/25 22:36 Morphine Sulfate 2 mg Q30MP PRN IV FOR CHEST PAIN 04/05/25 17:30 Acetaminophen (Tylenol Tablet) 650 mg Q6HP PRN PO MILD PAIN (1-3 PAIN SCALE) 04/05/25 17:30 Nitroglycerin (Ntrostat Sublingual) 0.4 mg Q5MINP PRN SL FOR CHEST PAIN 04/05/25 17:30 Ondansetron HCl (Zofran) 4 mg Q4HP PRN IV NAUSEA / VOMITING 04/05/25 17:30 Nitroglycerin (Ntrostat Sublingual) 0.4 mg Q5MINP PRN SL FOR CHEST PAIN 04/05/25 17:30 04/05/25 17:41 DC Morphine Sulfate 2 mg Q30M PRN IV FOR CHEST PAIN 04/05/25 17:30 04/05/25 17:41 DC Enoxaparin Sodium (Lovenox) 30 mg DAILY SC 04/06/25 10:00 04/06/25 09:56 Multivit/Ca Carb/ B Cmplx/FA/Prenat (Nephro-Tita Tablet) 1 tab DAILY PO 04/06/25 10:00 04/06/25 09:55 Clopidogrel Bisulfate (Plavix) 75 mg DAILY PO 04/06/25 10:00 04/06/25 09:54 Quetiapine Fumarate (SEROquel TABLET) 100 mg DAILY PO 04/06/25 10:00 04/06/25 09:55 Patient Own Medication 3 cap HS PO 04/05/25 22:00 Levothyroxine Sodium (Synthroid Tablet) 200 mcg QAM@0600 PO 04/06/25 06:00 04/06/25 06:08 Sevelamer HCl (Renagel) 1,600 mg TIDWM PO 04/06/25 08:00 04/06/25 13:06 Hydromorphone HCl (Dilaudid Injection) 0.5 mg Q4HPRN PRN IV SEVERE PAIN (7-10 PAIN SCALE) 04/06/25 01:15 04/06/25 10:16 Pantoprazole Sodium (Protonix Tablet) 40 mg DAILY@0600 PO 04/07/25 06:00 Albuterol (Ventolin Medneb) 2.5 mg Q6HPRN PRN NEB SHORTNESS OF BREATH 04/06/25 10:30 04/06/25 12:14 Carisoprodol (Soma Tablet) 350 mg TID PO 04/06/25 12:00 04/06/25 13:06 Norepinephrine Bitartrate 250 ml @ 1.875 mls/ hr Q24H IV 04/06/25 11:30 Family History: Alcoholism G8 MOTHER Cancer G8 MOTHER (BREAST) G8 FATHER (PROSTATE) G8 SISTER (BREAST) G8 BROTHER G8 BROTHER G8 BROTHER FH: breast cancer G8 MOTHER, Onset:Unknown FH: prostate cancer Family history: Cardiovascular disease G8 FATHER Review of Systems As per history of present illness otherwise all systems are reviewed and are noncontributory H&P Exam Vital Signs/I&O Vital Sign Date Time Temp Pulse Resp B/P (MAP) Pulse Ox O2 Delivery O2 Flow Rate FiO2 04/06/25 13:45 74 13 121/51 (74) 98 04/06/25 12:00 Nasal Cannula* 4 36 04/06/25 08:00 98.1 98.1 Intake and Output 04/05/25 04/06/25 18:59 06:59 Intake Total 50 ml 392.5 ml Output Total 0 ml Balance 50 ml 392.5 ml Intake Oral 240 ml IV Total 50 ml 152.5 ml Output Urine Total 0 ml Physical Exam Gen: nad, lying supine heent: nc/at, mmm lungs: cta anteriorly cvs: no rub abd: soft, bowel sounds audible ext: + edema skin: no rash neuro: Paraplegia Labs/Diagnostic Data Labs/Diagnostic Data Laboratory Tests Test 04/06/25 11:58 04/06/25 11:38 04/06/25 03:00 04/05/25 14:42 Range/Units C-Reactive Protein High Sensitivity 9.70 H <1.0 mg/dL Hemoglobin 8.0 L 8.3 L 12.2-16.2 g/dL Hematocrit 25.2 L 25.3 L 36.0-46.0 % White Blood Count 4.5 4.4-10.8 10^3/uL Red Blood Count 2.61 L 4.0-5.20 10^6/uL Mean Corpuscular Volume 96.8 80.0-100.0 fL Mean Corpuscular Hemoglobin 31.9 28.0-32.0 pg Mean Corpuscular Hemoglobin Concent 32.9 32.0-36.0 g/dL Red Cell Distribution Width 17.4 H 11.8-14.3 % Platelet Count 117 L 140-450 10^3/uL Mean Platelet Volume 10.8 6.9-10.8 fL Neutrophils (%) (Auto) 37.0-80.0 % Lymphocytes (%) (Auto) 10.0-50.0 % Monocytes (%) (Auto) 0.0-12.0 % Basophils (%) (Auto) 0.0-2.0 % Neutrophils # (Auto) 1.6-8.6 10 ^3/uL Lymphocytes # (Auto) 0.4-5.4 10 ^3/uL Monocytes # (Auto) 0-1.3 10 ^3/uL Differential Total Cells Counted 100.0 100 Neutrophils % (Manual) 63 37.0-80.0 Band Neutrophils % (Manual) 0 Lymphocytes % (Manual) 24 10.0-50.0 Monocytes % (Manual) 12 0-12 Eosinophils % (Manual) 1 0-7 Basophils % (Manual) 0 0.0-2.0 Metamyelocytes % (manual) 0 Myelocytes % (Manual) 0 Promyelocytes % (Manual) 0 Blast Cells % (Manual) 0 Reactive Lymphocytes 0 Platelet Estimate Decreased Sodium Level 138 # 136-145 mmol/L Potassium Level 4.0 3.5-5.1 mmol/L Chloride Level 98 98-107 mmol/L Carbon Dioxide Level 29 20-31 mmol/L Anion Gap 11 5-15 Blood Urea Nitrogen 28 #H 9-23 mg/dL Creatinine 3.12 #H 0.550-1.02 mg/dL Glomerular Filtration Rate Calc 15 >90 mL/min BUN/Creatinine Ratio 9.0 L 10.0-20.0 Serum Glucose 95 74-106 mg/dL Calcium Level 9.0 8.7-10.4 mg/dL Magnesium Level 2.3 1.6-2.6 mg/dL Troponin I High Sensitivity 71 *H 6 </=34 ng/L Triglycerides Level 162 H < 150 mg/dL Cholesterol Level 150 < 200 mg/dL LDL Cholesterol 41 < 100 mg/dL HDL Cholesterol 58 40-59 mg/dL Test 04/05/25 12:44 04/05/25 11:30 Range/Units Troponin I High Sensitivity 89 *H 89 *H </=34 ng/L White Blood Count 4.1 L 4.4-10.8 10^3/uL Red Blood Count 2.85 L 4.0-5.20 10^6/uL Hemoglobin 9.1 L 12.2-16.2 g/dL Hematocrit 28.0 L 36.0-46.0 % Mean Corpuscular Volume 98.1 80.0-100.0 fL Mean Corpuscular Hemoglobin 31.9 28.0-32.0 pg Mean Corpuscular Hemoglobin Concent 32.5 32.0-36.0 g/dL Red Cell Distribution Width 17.3 H 11.8-14.3 % Platelet Count 123 L 140-450 10^3/uL Mean Platelet Volume 10.6 6.9-10.8 fL Neutrophils (%) (Auto) 37.0-80.0 % Lymphocytes (%) (Auto) 10.0-50.0 % Monocytes (%) (Auto) 0.0-12.0 % Basophils (%) (Auto) 0.0-2.0 % Neutrophils # (Auto) 1.6-8.6 10 ^3/uL Lymphocytes # (Auto) 0.4-5.4 10 ^3/uL Monocytes # (Auto) 0-1.3 10 ^3/uL Differential Total Cells Counted 100.0 100 Neutrophils % (Manual) 47 37.0-80.0 Band Neutrophils % (Manual) 0 Lymphocytes % (Manual) 33 10.0-50.0 Monocytes % (Manual) 20 H 0-12 Eosinophils % (Manual) 0 0-7 Basophils % (Manual) 0 0.0-2.0 Metamyelocytes % (manual) 0 Myelocytes % (Manual) 0 Promyelocytes % (Manual) 0 Blast Cells % (Manual) 0 Reactive Lymphocytes 0 Platelet Estimate Decreased Large Platelets Few Anisocytosis (manual) Slight Prothrombin Time 11.4 9.3-11.8 sec Prothrombin Time INR 1.08 0.9-1.15 Activated Partial Thromboplast Time 33.6 24.5-34.5 SEC Sodium Level 131 L 136-145 mmol/L Potassium Level 5.3 H 3.5-5.1 mmol/L Chloride Level 96 L 98-107 mmol/L Carbon Dioxide Level 22 20-31 mmol/L Anion Gap 13 5-15 Blood Urea Nitrogen 55 H 9-23 mg/dL Creatinine 5.81 H 0.550-1.02 mg/dL Glomerular Filtration Rate Calc 7 >90 mL/min BUN/Creatinine Ratio 9.5 L 10.0-20.0 Serum Glucose 74 74-106 mg/dL Hemoglobin A1c 4.5 <5.7 % A1C Lactic Acid Level 1.0 0.4-2.0 mmol/L Calcium Level 9.0 8.7-10.4 mg/dL Total Bilirubin < 0.2 L 0.2-1.0 mg/dL Aspartate Amino Transferase (AST) 12 L 13-40 U/L Alanine Aminotransferase (ALT) < 9 7-40 U/L Alkaline Phosphatase 387 H 46-116 U/L Total Protein 6.9 5.7-8.2 g/dL Albumin 3.4 3.2-4.8 g/dL Thyroid Stimulating Hormone (TSH) 8.06 H 0.55-4.78 uIU/mL Free Thyroxine (T4) Calculated 0.49 L 0.89-1.76 ng/dL Hepatitis B Surface Antigen Negative Negative Assessment IMP: 1) ESRD on dialysis 2) working diagnosis of possible septic shock - prelim report of blood cultures are negative 3) chest pain 4) anemia secondary to CKD five 5) paraplegia REC: - we will plan to continue with thrice weekly maintenance hemodialysis as an inpatient. - metabolic and volume status today are acceptable. - discussed plan of care from Nephrology perspective with Patricia at bedside - thank you for the consultation. Plan discussed with: Patient DIANE RODRIGUEZ MD Apr 06, 2025 14:10
[2025-04-06 15:41] LABS: Hematocrit 24.5 % (36.0-46.0); Hemoglobin 7.9 g/dL (12.2-16.2)
--- NOTE | 2025-04-06 16:30 | DVHSR ---
APPROVED REPORT EXAM: LIMITED Two-dimensional and M-mode echocardiogram with Doppler and color Doppler. Blood Pressure: 106/52 mmHg INDICATION Chest Pain RISK FACTORS Obesity: Height: 5' 2", Weight: 133 DIMENSIONS LVDd5.0 (3.8-5.7cm)LA (2D)4.0 (1.9-4.0cm)Aortic Root3.0 (2.0-3.7cm) LVDs3.7 (2.5-4.0cm)LA (MM) (1.9-4.0cm)Aortic Cusp Exc1.8 (1.5-2.0cm) EF (%) 50.0 (55-70%)Rt. Atrium4.1 (1.9-4.0cm)Asc. Aorta cm IVSd1.1 (0.7-1.1cm)RV (D) (1.8-2.4cm) PWd1.1 (0.7-1.1cm) Mitral Valve MitralMitral Stenosis E wave1.20m/sMV Mean GR.mmHg A wave1.60m/sMV Peak GR.mmHg E/A ratio0.82D MVAcm2 Aortic Valve Aortic ValveAortic Stenosis V11.10m/Kobe Mean GR.5mmHg V21.60m/Kobe Peak GR.11mmHg LVOT Diameter2.3 (1.8-2.4cm)Doppler AVA2.85cm2 Pulmonic Valve V20.80m/s Tricuspid Valve TR Velocity2.40m/s [id number] Other Information Quality : Technically LimitedRhythm : Technically limited study due to body habitus, patient is upset she wants to eat first. Conclusion MODERATE DEGREE LVH AND MODERATE DEGREE LV DIASTOLIC DYSFUNCTION LV EF IS 65% MODERATELY DILATED RV AND RA POSTERIOR MV HEAVILY CALCIFIED MODERATELY DILATED LA NO EFFUSION
[2025-04-06] MEDS: BISACODYL 10 MG RECT SUPP PR PRN (16:55)
[2025-04-06 18:53] LABS: Iron 43.0 ug/dL (50-170); Total Iron Binding Capacity 162.0 ug/dL (250-425)
--- NOTE | 2025-04-06 19:06 | DVHPN2 ---
Progress Note - Dictate Date Seen: Apr 06, 2025 Medical Necessity Reason Pt with a Central, PICC or Fol: Yes Subjective Patient was seen and evaluated in follow up in the ICU. Patient is complaining of generalized pain. She is on 4 LPM NC. Patient is receiving vasopressors. MRSA is positive. Echocardiogram showed an EF of 65%. 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 vital signs Vital Sign Date Time Temp Pulse Resp B/P (MAP) Pulse Ox O2 Delivery O2 Flow Rate FiO2 04/06/25 16:45 78 17 114/51 (72) 93 04/06/25 16:00 Nasal Cannula* 4 36 04/06/25 08:00 98.1 98.1 Total Intake and Output 04/05/25 04/05/25 04/06/25 15:00 23:00 07:00 Intake Total 50 ml 400.0 ml Output Total 0 ml Balance 50 ml 400.0 ml medications Current Medications Medications Dose Ordered Sig/Margarito Route Start Time Stop Time Status Last Admin Dose Admin Piperacillin Sod/ Tazobactam Sod 100 ml @ 25 mls/hr Q12HR IV 04/05/25 22:00 04/06/25 09:55 25 MLS/HR Aspirin 81 mg DAILY PO 04/05/25 17:40 04/06/25 09:55 81 MG Atorvastatin Calcium 40 mg HS PO 04/05/25 22:00 04/05/25 22:36 40 MG Morphine Sulfate 2 mg Q30MP PRN IV 04/05/25 17:30 Acetaminophen 650 mg Q6HP PRN PO 04/05/25 17:30 Nitroglycerin 0.4 mg Q5MINP PRN SL 04/05/25 17:30 Ondansetron HCl 4 mg Q4HP PRN IV 04/05/25 17:30 Enoxaparin Sodium 30 mg DAILY SC 04/06/25 10:00 04/06/25 09:56 30 MG Multivit/Ca Carb/ B Cmplx/FA/Prenat 1 tab DAILY PO 04/06/25 10:00 04/06/25 09:55 1 TAB Clopidogrel Bisulfate 75 mg DAILY PO 04/06/25 10:00 04/06/25 09:54 75 MG Quetiapine Fumarate 100 mg DAILY PO 04/06/25 10:00 04/06/25 09:55 100 MG Patient Own Medication 3 cap HS PO 04/05/25 22:00 Levothyroxine Sodium 200 mcg QAM@0600 PO 04/06/25 06:00 04/06/25 06:08 200 MCG Sevelamer HCl 1,600 mg TIDWM PO 04/06/25 08:00 04/06/25 13:06 1,600 MG Hydromorphone HCl 0.5 mg Q4HPRN PRN IV 04/06/25 01:15 04/06/25 14:23 0.5 MG Pantoprazole Sodium 40 mg DAILY@0600 PO 04/07/25 06:00 Albuterol 2.5 mg Q6HPRN PRN NEB 04/06/25 10:30 04/06/25 12:14 2.5 MG Carisoprodol 350 mg TID PO 04/06/25 12:00 04/06/25 13:06 350 MG Norepinephrine Bitartrate 250 ml @ 1.875 mls/ hr Q24H IV 04/06/25 11:30 Mupirocin 1 applic BID EACHNOSTRI 04/06/25 22:00 04/11/25 21:59 Bisacodyl 10 mg DAILYP PRN ID 04/06/25 16:45 04/06/25 16:55 10 MG objective GENERAL: Alert and oriented x 3. No acute distress. Paraplegic. EYES: PERRL, EOMI. Anicteric. HENT: Moist mucous membranes. LUNGS: Clear to auscultation bilaterally. CARDIOVASCULAR: Regular rate and rhythm. ABDOMEN: Soft, nontender and nondistended. EXTREMITIES: No edema. NEUROLOGIC: No focal neurological deficits. SKIN: Wounds (Decubitus). laboratory and microbiology Laboratory Tests 04/06/25 15:30 04/06/25 03:00 Test 04/06/25 03:00 Range/Units Serum Glucose 95 74-106 mg/dL Problem List NSTEMI likely type 2. Anemia likely due to chronic renal failure. Cardiomegaly. Probable pneumonia. Elevated ALP. Hyponatremia. Hyperkalemia. Thrombocytopenia. Acute on chronic renal failure on dialysis (M/W/F). Acute hypoxic respiratory failure on supportive oxygen. 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 History of chronic fracture of the right inferior pubic ramus. History of paraplegia. History of CAD, patient denies and claims she does not have any stents in her heart. History of hypertension. History of COPD. History of CHF. History of bed-bound due to back surgery in 2018 for cyst removal. History of MO. History of bipolar disease. History of ventral umbilical hernia. History of tonsillectomy. History of hemorrhoids. History of I&D for decubitus ulcer. History of tobacco use. Assessment/Plan Continued all current supportive medical care. Aspirin, Lipitor, Plavix. DVT and GI prophylactics. Dilaudid for pain management. Vasopressors for hemodynamic support. IV antibiotics as ordered. Additional plan as per the hospital course. Critical care time of 45 minutes provided to include time spent evaluation of patient at bedside, when appropriate patient/family education for diagnosis, treatment plan, review of pertinent medical information and discussion of care with specialty providers and PCP. Dietary Evaluation Review Recommendations by RD: Protein Supplementation Comments: 1) Add renal restriction to cardiac diet 2) Initiate Nepro qd 3) Encourage optimal PO intake 4) Follow-up with cardiology, pulmonology, and nephrology 5) Continue to monitor I&O, labs, and skin integrity Expected Outcomes/Goals: 1) appetite and labs to improve 2) wound to improve 3) f/u in 3-5 days Plan discussed with: Patient WENDY COREAS MD Apr 06, 2025 18:06
[2025-04-06] MEDS: MUPIROCIN 2% OINT 15gm or 22gm FOR MRSA NARES EACHNOSTRI SCH (22:00)
[2025-04-06 22:37] LABS: Hematocrit 25.0 % (36.0-46.0); Hemoglobin 8.1 g/dL (12.2-16.2)
[2025-04-07] VITALS (95 sets, daily range): BP systolic 96–177; BP diastolic 33–82; PULSE 71–105; RESP 8–25; TEMP 98.1–99; O2SAT 82–100
[2025-04-07 04:41] LABS: Anion Gap 10 (5-15); Carbon Dioxide 30 mmol/L (20-31); Chloride 98 mmol/L (98-107); Potassium 4.8 mmol/L (3.5-5.1); Sodium 138 mmol/L (136-145)
[2025-04-07 04:42] LABS: Calcium 9.0 mg/dL (8.7-10.4)
[2025-04-07 04:47] LABS: BUN/Creatinine Ratio 9.9 (10.0-20.0); Glucose 96 mg/dL (74-106)
[2025-04-07 05:00] LABS: Blood Urea Nitrogen 39 mg/dL (9-23)
[2025-04-07 05:13] LABS: Hemoglobin 8.1 g/dL (12.2-16.2)
[2025-04-07 05:15] LABS: Hematocrit 25.1 % (36.0-46.0); Mean Corpuscular Hemoglobin 31.6 pg (28.0-32.0); Mean Corpuscular Volume 97.3 fL (80.0-100.0)
--- NOTE | 2025-04-07 05:38 | DVH ---
CHEST RADIOGRAPH Indication: fu Technique: Single frontal view of the chest was obtained COMPARISON: XY CHEST PORTABLE on DOS: 04/05/25, XY CHEST PORTABLE on DOS: 12/07/24, XR RIBS BILATERAL o n DOS: 10/23/24, XY CHEST PORTABLE on DOS: 03/12/24, CT CHEST/ABD/PEL on DOS: 12/06/23 FINDINGS: Lines and Tubes: Left PermCath unchanged. Lungs: Stable appearing lateral right middle lung zone scarring and opacity. Pleura: No effusion. No pneumothorax. Cardiomediastinal contours: Cardiomegaly. Bones: Unremarkable IMPRESSION: 1. Stable lateral right middle lung zone scarring and opacity. 2. PermCath.
[2025-04-07] MEDS: PANTOPRAZOLE 40 MG TAB PO SCH (06:27)
[2025-04-07 07:41] LABS: Total Cells Counted 100.0 (100)
[2025-04-07] MEDS: COLCHICINE 0.6 MG CAP PO SCH (10:37)
--- NOTE | 2025-04-07 11:21 | DVHPN2 ---
Progress Note - Dictate Date Seen: Apr 07, 2025 Medical Necessity Reason Pt with a Central, PICC or Fol: Yes Subjective Lying supine, no acute distress, states she slept better last night. vital signs Vital Sign Date Time Temp Pulse Resp B/P (MAP) Pulse Ox O2 Delivery O2 Flow Rate FiO2 04/07/25 10:45 80 15 115/76 04/07/25 07:30 96 Nasal Cannula* 4 36 04/07/25 04:00 98.2 98.2 Total Intake and Output 04/06/25 04/06/25 04/07/25 15:00 23:00 07:00 Intake Total 152.500 ml 662.750 ml 471.125 ml Output Total 0 ml 0 ml Balance 152.500 ml 662.750 ml 471.125 ml medications Current Medications Medications Dose Ordered Sig/Margarito Route Start Time Stop Time Status Last Admin Dose Admin Piperacillin Sod/ Tazobactam Sod 100 ml @ 25 mls/hr Q12HR IV 04/05/25 22:00 04/07/25 10:35 25 MLS/HR Aspirin 81 mg DAILY PO 04/05/25 17:40 04/07/25 10:37 81 MG Atorvastatin Calcium 40 mg HS PO 04/05/25 22:00 04/06/25 22:05 40 MG Morphine Sulfate 2 mg Q30MP PRN IV 04/05/25 17:30 Acetaminophen 650 mg Q6HP PRN PO 04/05/25 17:30 Nitroglycerin 0.4 mg Q5MINP PRN SL 04/05/25 17:30 Ondansetron HCl 4 mg Q4HP PRN IV 04/05/25 17:30 Enoxaparin Sodium 30 mg DAILY SC 04/06/25 10:00 04/07/25 10:36 30 MG Multivit/Ca Carb/ B Cmplx/FA/Prenat 1 tab DAILY PO 04/06/25 10:00 04/07/25 10:36 1 TAB Clopidogrel Bisulfate 75 mg DAILY PO 04/06/25 10:00 04/07/25 10:36 75 MG Quetiapine Fumarate 100 mg DAILY PO 04/06/25 10:00 04/07/25 10:37 100 MG Patient Own Medication 3 cap HS PO 04/05/25 22:00 Levothyroxine Sodium 200 mcg QAM@0600 PO 04/06/25 06:00 04/07/25 06:26 200 MCG Sevelamer HCl 1,600 mg TIDWM PO 04/06/25 08:00 04/07/25 10:36 1,600 MG Hydromorphone HCl 0.5 mg Q4HPRN PRN IV 04/06/25 01:15 04/07/25 10:45 0.5 MG Pantoprazole Sodium 40 mg DAILY@0600 PO 04/07/25 06:00 04/07/25 06:27 40 MG Albuterol 2.5 mg Q6HPRN PRN NEB 04/06/25 10:30 04/07/25 07:08 2.5 MG Carisoprodol 350 mg TID PO 04/06/25 12:00 04/07/25 06:27 350 MG Norepinephrine Bitartrate 250 ml @ 1.875 mls/ hr Q24H IV 04/06/25 11:30 Mupirocin 1 applic BID EACHNOSTRI 04/06/25 22:00 04/11/25 21:59 Bisacodyl 10 mg DAILYP PRN [place] 04/06/25 16:45 04/06/25 16:55 10 MG Tramadol HCl 50 mg Q6HP PRN PO 04/07/25 09:45 Colchicine 0.6 mg Q12HR PO 04/07/25 10:00 04/07/25 10:37 0.6 MG objective Gen: nad heent: nc/at, mmm lungs: cta anteriorly cvs: no rub abd: soft, 2 cm area of induration over pannus involving right side of her abdomen. Nontender ext: no edema neuro: Paraplegia laboratory and microbiology Laboratory Tests 04/07/25 01:40 Test 04/07/25 01:40 Range/Units Serum Glucose 96 74-106 mg/dL Assessment/Plan IMP: 1) ESRD on dialysis 2) working diagnosis of possible septic shock - prelim report of blood cultures are negative 3) chest pain 4) anemia secondary to CKD five 5) paraplegia REC: - consideration for imaging of indurated area within pannus. - tentatively for dialysis April 08 - discussed plan of care with Patricia and her caregiver who was at bedside Dietary Evaluation Review Recommendations by RD: Protein Supplementation Comments: 1) Add renal restriction to cardiac diet 2) Initiate Nepro qd 3) Encourage optimal PO intake 4) Follow-up with cardiology, pulmonology, and nephrology 5) Continue to monitor I&O, labs, and skin integrity Expected Outcomes/Goals: 1) appetite and labs to improve 2) wound to improve 3) f/u in 3-5 days Plan discussed with: Patient, Other DIANE RODRIGUEZ MD Apr 07, 2025 11:21
[2025-04-07] MEDS: KETOROLAC TROMETH 30 MG/ML 1ML VIAL IV ONE (14:04)
--- NOTE | 2025-04-07 14:26 | DVH ---
Exam: US ABDOMEN LIMITED Date: 04/07/2025 01:34 PM Clinical History: right lower quadrant growth Comparison: CT CT AB PEL WITH IV CON ONLY on DOS: 03/13/24, CT CHEST/ABD/PEL on DOS: 12/06/23, XY PELVIS AP on DOS: 05/30/23 Findings: Targeted sonographic evaluation of the soft tissues of the lower abdomen was obtained utilizing panfilo karlee and color Doppler imaging. 2 x 1 x 2 subcutaneous cystic mass which could represent a sebaceous cyst IMPRESSION: 2 x 1 x 2 subcutaneous cystic mass which could represent a sebaceous cyst END IMPRESSION:
--- NOTE | 2025-04-07 14:53 | DVHPN2 ---
Subjective still cp Reviewed: Care Plan, H&P, Labs, Medications, Previous Orders, Radiology Changes from previous H/P or p: No Changes Cardiovascular: Chest Pain Objective Vitals Vital Signs Date Time Temp Pulse Resp B/P (MAP) Pulse Ox O2 Delivery O2 Flow Rate FiO2 04/07/25 14:22 85 04/07/25 14:22 17 95 Nasal Cannula* 3 32 04/07/25 13:00 128/55 (79) 04/07/25 12:00 99.0 99.0 Intake/Output Intake and Output 04/07/25 07:00 Intake Total 1286.375 ml Output Total 0 ml Balance 1286.375 ml Intake Oral 950 ml IV Total 336.375 ml Output Urine Total 0 ml General Appearance: Alert, Oriented X3, Cooperative, No acute distress Lungs: Clear to auscultation Cardiovascular: Regular rate Abdomen: Normal bowel sounds, Soft, No tenderness Medications Current Medications Medications Dose Ordered Sig/Margarito Route Start Time Stop Time Status Last Admin Dose Admin Piperacillin Sod/ Tazobactam Sod 100 ml @ 25 mls/hr Q12HR IV 04/05/25 22:00 04/07/25 10:35 25 MLS/HR Aspirin 81 mg DAILY PO 04/05/25 17:40 04/07/25 10:37 81 MG Atorvastatin Calcium 40 mg HS PO 04/05/25 22:00 04/06/25 22:05 40 MG Morphine Sulfate 2 mg Q30MP PRN IV 04/05/25 17:30 Acetaminophen 650 mg Q6HP PRN PO 04/05/25 17:30 Nitroglycerin 0.4 mg Q5MINP PRN SL 04/05/25 17:30 Ondansetron HCl 4 mg Q4HP PRN IV 04/05/25 17:30 Enoxaparin Sodium 30 mg DAILY SC 04/06/25 10:00 04/07/25 10:36 30 MG Multivit/Ca Carb/ B Cmplx/FA/Prenat 1 tab DAILY PO 04/06/25 10:00 04/07/25 10:36 1 TAB Clopidogrel Bisulfate 75 mg DAILY PO 04/06/25 10:00 04/07/25 10:36 75 MG Quetiapine Fumarate 100 mg DAILY PO 04/06/25 10:00 04/07/25 10:37 100 MG Patient Own Medication 3 cap HS PO 04/05/25 22:00 Levothyroxine Sodium 200 mcg QAM@0600 PO 04/06/25 06:00 04/07/25 06:26 200 MCG Sevelamer HCl 1,600 mg TIDWM PO 04/06/25 08:00 04/07/25 10:36 1,600 MG Hydromorphone HCl 0.5 mg Q4HPRN PRN IV 04/06/25 01:15 04/07/25 10:45 0.5 MG Pantoprazole Sodium 40 mg DAILY@0600 PO 04/07/25 06:00 04/07/25 06:27 40 MG Albuterol 2.5 mg Q6HPRN PRN NEB 04/06/25 10:30 04/07/25 07:08 2.5 MG Carisoprodol 350 mg TID PO 04/06/25 12:00 04/07/25 14:12 350 MG Norepinephrine Bitartrate 250 ml @ 1.875 mls/ hr Q24H IV 04/06/25 11:30 Mupirocin 1 applic BID EACHNOSTRI 04/06/25 22:00 04/11/25 21:59 04/07/25 11:52 1 APPLIC Bisacodyl 10 mg DAILYP PRN NJ 04/06/25 16:45 04/06/25 16:55 10 MG Tramadol HCl 50 mg Q6HP PRN PO 04/07/25 09:45 04/07/25 11:45 50 MG Colchicine 0.6 mg Q12HR PO 04/07/25 10:00 04/07/25 10:37 0.6 MG Laboratory Results Laboratory Tests 04/07/25 01:40 Chemistry Test 04/07/25 01:40 Calcium Level 9.0 mg/dL (8.7-10.4) Microbiology Microbiology Date/Time Source Procedure Growth Status 04/05/25 23:15 Nose MRSA Screen - Final Methicillin Resistant S.aureus Complete 04/05/25 11:30 Blood Blood Culture - Preliminary NO GROWTH AFTER 48 HOURS OF INCUBATION. Resulted Assessment/Plan Assessment/Plan Chest pain Non-STEMI Hyponatremia Hyperkalemia End-stage renal disease on hemodialysis Bipolar disorder Decubitus ulcer Coronary artery disease Paraplegia Hypertension COPD CHF Anemia of chronic disease Thrombocytopenia plan Pain management. Colchicine. Repeat labs and x-ray. Monitor oxygenation and vital signs. Further plan per orders. Total critical care time 35 minutes Plan discussed with: Patient, Other (Nursing) My Orders Orders - CESILIA MORENO MD Procedure Category Date Status Time Mupirocin 2% Oint PHA 04/06/25 In Process Mrsa Nares (Bactroban 22:00 Cardiac DIET 04/06/25 Transmitted Diet-2gna,Lofat,Lochol Dinner Tramadol Hcl (Ultram) PHA 04/07/25 In Process 09:45 Colchicine (Colcrys) PHA 04/07/25 In Process 10:00 Abdomen Limited US 04/07/25 Resulted 13:20 Date of Service: Apr 07, 2025 Billing Provider: CESILIA MORENO MD Common Visit Codes: [id number] CARE 30-74 MIN CESILIA MORENO MD Apr 07, 2025 14:53
--- NOTE | 2025-04-07 21:48 | DVHPN2 ---
Progress Note - Dictate Date Seen: Apr 07, 2025 Medical Necessity Reason Pt with a Central, PICC or Fol: Yes Subjective Patient was seen and evaluated in follow up in the ICU. HGB 8.1, HCT 25.1, BUN 39, WATCH PARTS INSPECTOR 3.93, TROP 73. Chest x-ray shows stable lateral right middle lung zone scarring and opacity. vital signs Vital Sign Date Time Temp Pulse Resp B/P (MAP) Pulse Ox O2 Delivery O2 Flow Rate FiO2 04/07/25 12:30 18 97 Nasal Cannula* 3 32 04/07/25 11:15 88 114/52 04/07/25 04:00 98.2 98.2 Total Intake and Output 04/06/25 04/06/25 04/07/25 15:00 23:00 07:00 Intake Total 152.500 ml 662.750 ml 471.125 ml Output Total 0 ml 0 ml Balance 152.500 ml 662.750 ml 471.125 ml medications Current Medications Medications Dose Ordered Sig/Margarito Route Start Time Stop Time Status Last Admin Dose Admin Piperacillin Sod/ Tazobactam Sod 100 ml @ 25 mls/hr Q12HR IV 04/05/25 22:00 04/07/25 10:35 25 MLS/HR Aspirin 81 mg DAILY PO 04/05/25 17:40 04/07/25 10:37 81 MG Atorvastatin Calcium 40 mg HS PO 04/05/25 22:00 04/06/25 22:05 40 MG Morphine Sulfate 2 mg Q30MP PRN IV 04/05/25 17:30 Acetaminophen 650 mg Q6HP PRN PO 04/05/25 17:30 Nitroglycerin 0.4 mg Q5MINP PRN SL 04/05/25 17:30 Ondansetron HCl 4 mg Q4HP PRN IV 04/05/25 17:30 Enoxaparin Sodium 30 mg DAILY SC 04/06/25 10:00 04/07/25 10:36 30 MG Multivit/Ca Carb/ B Cmplx/FA/Prenat 1 tab DAILY PO 04/06/25 10:00 04/07/25 10:36 1 TAB Clopidogrel Bisulfate 75 mg DAILY PO 04/06/25 10:00 04/07/25 10:36 75 MG Quetiapine Fumarate 100 mg DAILY PO 04/06/25 10:00 04/07/25 10:37 100 MG Patient Own Medication 3 cap HS PO 04/05/25 22:00 Levothyroxine Sodium 200 mcg QAM@0600 PO 04/06/25 06:00 04/07/25 06:26 200 MCG Sevelamer HCl 1,600 mg TIDWM PO 04/06/25 08:00 04/07/25 10:36 1,600 MG Hydromorphone HCl 0.5 mg Q4HPRN PRN IV 04/06/25 01:15 04/07/25 10:45 0.5 MG Pantoprazole Sodium 40 mg DAILY@0600 PO 04/07/25 06:00 04/07/25 06:27 40 MG Albuterol 2.5 mg Q6HPRN PRN NEB 04/06/25 10:30 04/07/25 07:08 2.5 MG Carisoprodol 350 mg TID PO 04/06/25 12:00 04/07/25 06:27 350 MG Norepinephrine Bitartrate 250 ml @ 1.875 mls/ hr Q24H IV 04/06/25 11:30 Mupirocin 1 applic BID EACHNOSTRI 04/06/25 22:00 04/11/25 21:59 04/07/25 11:52 1 APPLIC Bisacodyl 10 mg DAILYP PRN RI 04/06/25 16:45 04/06/25 16:55 10 MG Tramadol HCl 50 mg Q6HP PRN PO 04/07/25 09:45 04/07/25 11:45 50 MG Colchicine 0.6 mg Q12HR PO 04/07/25 10:00 04/07/25 10:37 0.6 MG objective GENERAL: Alert and oriented x 3. No acute distress. Paraplegic. EYES: PERRL, EOMI. Anicteric. HENT: Moist mucous membranes. LUNGS: Clear to auscultation bilaterally. CARDIOVASCULAR: Regular rate and rhythm. ABDOMEN: Soft, nontender and nondistended. EXTREMITIES: No edema. NEUROLOGIC: No focal neurological deficits. SKIN: Wounds (Decubitus). laboratory and microbiology Laboratory Tests 04/07/25 01:40 Test 04/07/25 01:40 Range/Units Serum Glucose 96 74-106 mg/dL Problem List NSTEMI likely type 2. Anemia likely due to chronic renal failure. Cardiomegaly. Probable pneumonia. Elevated ALP. Hyponatremia. Hyperkalemia. Thrombocytopenia. Acute on chronic renal failure on dialysis (M/W/F). Acute hypoxic respiratory failure on supportive oxygen. 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 History of chronic fracture of the right inferior pubic ramus. History of paraplegia. History of CAD, patient denies and claims she does not have any stents in her heart. History of hypertension. History of COPD. History of CHF. History of bed-bound due to back surgery in 2018 for cyst removal. History of CA. History of bipolar disease. History of ventral umbilical hernia. History of tonsillectomy. History of hemorrhoids. History of I&D for decubitus ulcer. History of tobacco use. Assessment/Plan Continued all current supportive medical care. Aspirin, Plavix. DVT and GI prophylactics. Dilaudid for pain management. IV antibiotics as ordered. Additional plan as per the hospital course. Critical care time of 45 minutes provided to include time spent evaluation of patient at bedside, when appropriate patient/family education for diagnosis, treatment plan, review of pertinent medical information and discussion of care with specialty providers and PCP. Dietary Evaluation Review Recommendations by RD: Protein Supplementation Comments: 1) Add renal restriction to cardiac diet 2) Initiate Nepro qd 3) Encourage optimal PO intake 4) Follow-up with cardiology, pulmonology, and nephrology 5) Continue to monitor I&O, labs, and skin integrity Expected Outcomes/Goals: 1) appetite and labs to improve 2) wound to improve 3) f/u in 3-5 days Plan discussed with: Patient WENDY COREAS MD Apr 07, 2025 13:14
[2025-04-07] MEDS: HYDROCORTISONE ACET 25 MG RECTAL SUPP PR ONE (22:16)
--- NOTE | 2025-04-07 23:05 | DVHINCON2 ---
Date Seen: Apr 06, 2025 Referring Physician TISH Marsh Reason for Consultation Acute hypoxic respiratory failure History of Present Illness A 70-year-old woman with past medical history that includes COPD, CAD, hypertension, CHF, PR, bed-bound due to back surgery in 2018, bipolar disorder, and ESRD on HD, who presents to the ED on 04/05/25 with chest pain x2 weeks. Patient reported pain is 9/10, sharp and intermittent in nature. No triggering or alleviating factors. She also reported a fall 1 year ago where she broke her hip and went to [facility], no surgery was performed. Patient uses oxygen continuously 2 L via nasal cannula at home. She reports that she has not walked since 2018. Patient reports recent admission at [facility], does not recall reason for admission. She was admitted for further care. Pulmonary consultation is requested for evaluation and management of acute hypoxic respiratory failure. Review of Systems: 14-point review of systems negative unless otherwise noted above. Past Medical History: COPD, CAD, hypertension, CHF, PR, bed-bound due to back surgery in 2018, bipolar disorder, ESRD on HD (M/W/F) with Dr. Thornton Bed-bound due to back surgery for cyst removal in 2018 Paraplegia Ventral umbilical hernia Hemorrhoids Past Surgical History: I&D of decubitus ulcer and back surgery. Tonsillectomy Medications: Reviewed. Allergies: Baclofen. Family History: Mom with a pacemaker and breast cancer. Dad with colon cancer.. Social History: Former smoker. No alcohol or illicit drug use. Family History: Alcoholism G8 MOTHER Cancer G8 MOTHER (BREAST) G8 FATHER (PROSTATE) G8 SISTER (BREAST) G8 BROTHER G8 BROTHER G8 BROTHER FH: breast cancer G8 MOTHER, Onset:Unknown FH: prostate cancer Family history: Cardiovascular disease G8 FATHER Allergies: Coded Allergies: Baclofen (Verified Allergy, Unknown, 11/07/23) Home Meds Active Scripts Ampicillin (Ampicillin) 500 Mg Cap, 1 CAP PO TID for 10 Days, #30 CAP Prov:HATTIE ROLLINS SASH INSTALLER 03/16/24 Sulfamethoxazole W/Trimethopri (Bactrim Ds Tablet) 1 Tab Tb, 1 TAB PO BID for 10 Days, #20 TAB Prov:SALHATTIE MACHADO SASH INSTALLER 03/16/24 Albuterol Sulfate (Albuterol Sulfate) 0.083 % Neb, 1 VIAL NEB Q4HPRN, #50 VIAL 2 Refills Prov:LUANNE GILL MD 11/10/23 Isosorbide Mononitrate (Isosorbide Mononitrate Er) 30 Mg Tab, 1 TAB PO DAILY, #30 TAB Prov:AZAR ALBA MD 09/01/21 Nifedipine (Nifedipine Er) 90 Mg Tab, 1 TAB PO DAILY, #30 TAB Prov:AZAR ALBA MD 09/01/21 Ascorbic Acid (VITAMIN C TABLET) 500 Mg Tb, 500 MG PO BID for 30 Days Prov:DASHAWN PELAEZ MD 09/12/18 Reported Medications Fluconazole (Fluconazole) 150 Mg Tab, 1 TAB PO DAILY for 7 Days, #7 MG 11/09/23 Triamcinolone Acetonide (Kenalog) 1 Applic Ap, 1 APPLIC TOP BID 11/09/23 Ondansetron Odt 4MG Tab (ZOFRAN PO) 4 Mg Tb, 1 TAB PO DAILY 11/09/23 Tenapanor HCl (Xphozah) 30 Mg Tab, 1 TAB PO BID 11/09/23 B-Complex W/ C & Folic Acid (Marisela-Tita Rx) Tab, 1 TAB PO DAILY 11/09/23 Lisinopril (Lisinopril) 20 Mg Tab, 1 TAB PO DAILY 11/09/23 Quetiapine Fumerate (Seroquel) 100 Mg Tab, 1 TAB PO DAILY 11/09/23 Hydralazine HCl (Hydralazine HCl) 25 Mg Tab, 1 TAB PO TID 11/07/23 Carvedilol (Carvedilol) 12.5 Mg Tab, 1 TAB PO BID 11/07/23 Oxycodone W/ Acetaminophen (Apap/Oxycodone) 1 Tab Tab, 10-325 MG PO QIDPRN PRN for back pain 08/31/21 Carisoprodol (Soma) 350 Mg Tab, 350 MG PO QID 03/07/19 Clopidogrel Bisulfate (CLOPIDOGREL) 75 Mg Tab, 75 MG PO DAILY 03/07/19 Levothyroxine Sodium (Levothyroxine Sodium) 200 Mcg Tab, 200 MCG PO QAM Dose verified against [facility] record 08/18/18 Docusate Sodium (DOCQLACE) 100 Mg Cap, 100 MG PO TID 08/05/18 Temazepam (Temazepam) 30 Mg Cap, 15 MG PO HS PRN for FOR INSOMNIA 04/17/18 Alprazolam (Xanax) 0.5 Mg Tb, 0.5 TAB PO BID 07/14/17 Cinacalcet Hydrochloride (Sensipar) 60 Mg Tab, 60 MG PO TID Per patient, she takes cinacalcet 60 mg tab, TID before meals. 01/08/16 Sevelamer Carbonate (Renvela) 800 Mg Tab, 2 TAB PO TID 01/08/16 Pantoprazole Sodium Sesquihydr (Protonix) 40 Mg Tab, 40 MG PO DAILY 01/08/16 Doxepin Hcl (Doxepin Hcl) 50 Mg Cap, 3 CAP PO QPM per patient 12/20/12 Atorvastatin Calcium (Lipitor) 10 Mg Tab, 1 TAB PO DAILY 12/20/12 Current Medications Current Medications Medications (Trade) Dose Ordered Sig/Margarito Route PRN Reason Start Time Stop Time Status Last Admin Pantoprazole Sodium (Protonix Tablet) 40 mg DAILY@0600 PO 04/07/25 06:00 04/07/25 06:27 Tramadol HCl (Ultram) 50 mg Q6HP PRN PO MODERATE PAIN (4-6 PAIN SCALE) 04/07/25 09:45 04/07/25 22:03 Colchicine (Colcrys) 0.6 mg Q12HR PO 04/07/25 10:00 04/07/25 21:42 Vital Signs Vital Signs Date Time Temp Pulse Resp B/P (MAP) Pulse Ox O2 Delivery O2 Flow Rate FiO2 04/07/25 22:00 74 04/07/25 22:00 11 96 Nasal Cannula* 4 36 04/07/25 22:00 122/53 (76) 04/07/25 16:00 98.7 98.7 Physical Exam Gen.: Patient lying in bed in no apparent distress. On supplemental oxygen. Head: Normocephalic, atraumatic. Eyes: EOMI/PERRLA. Ears: Normal hearing. Normal anatomy. Neck/trachea: Trachea midline, supple. Nose: Normal external anatomy. Mouth: Moist mucous membranes. Chest: Decreased air entry bilaterally. No wheezing or rhonchi. Cardiovascular: Positive S1, positive S2. Regular rate and rhythm. Abdomen: Positive bowel sounds in all 4 quadrants. Soft, non-tender, non- distended. : Deferred. Rectal: Deferred. Skin: Warm, dry. Intact. Extremities: 2+ radial pulses bilaterally. No lower extremity edema. Neuro: Awake, alert, oriented x3. Paraplegic. No gross motor or sensory deficits. Cranial nerves II through XII intact. Gait not assessed. Labs/Diagnostic Data Labs Test 04/07/25 01:40 04/06/25 18:12 04/06/25 11:58 04/06/25 03:00 Range/Units White Blood Count 5.2 4.4-10.8 10^3/uL Red Blood Count 2.58 L 4.0-5.20 10^6/uL Hemoglobin 8.1 L 12.2-16.2 g/dL Hematocrit 25.1 L 36.0-46.0 % Mean Corpuscular Volume 97.3 80.0-100.0 fL Mean Corpuscular Hemoglobin 31.6 28.0-32.0 pg Mean Corpuscular Hemoglobin Concent 32.5 32.0-36.0 g/dL Red Cell Distribution Width 17.3 H 11.8-14.3 % Platelet Count 127 L 140-450 10^3/uL Mean Platelet Volume 10.9 H 6.9-10.8 fL Neutrophils (%) (Auto) 37.0-80.0 % Lymphocytes (%) (Auto) 10.0-50.0 % Monocytes (%) (Auto) 0.0-12.0 % Basophils (%) (Auto) 0.0-2.0 % Neutrophils # (Auto) 1.6-8.6 10 ^3/uL Lymphocytes # (Auto) 0.4-5.4 10 ^3/uL Monocytes # (Auto) 0-1.3 10 ^3/uL Differential Total Cells Counted 100.0 100 Neutrophils % (Manual) 56 37.0-80.0 Band Neutrophils % (Manual) 3 Lymphocytes % (Manual) 25 10.0-50.0 Monocytes % (Manual) 14 H 0-12 Eosinophils % (Manual) 2 0-7 Basophils % (Manual) 0 0.0-2.0 Metamyelocytes % (manual) 0 Myelocytes % (Manual) 0 Promyelocytes % (Manual) 0 Blast Cells % (Manual) 0 Reactive Lymphocytes 0 Platelet Estimate Decreased Sodium Level 138 136-145 mmol/L Potassium Level 4.8 3.5-5.1 mmol/L Chloride Level 98 98-107 mmol/L Carbon Dioxide Level 30 20-31 mmol/L Anion Gap 10 5-15 Blood Urea Nitrogen 39 #H 9-23 mg/dL Creatinine 3.93 H 0.550-1.02 mg/dL Glomerular Filtration Rate Calc 12 >90 mL/min BUN/Creatinine Ratio 9.9 L 10.0-20.0 Serum Glucose 96 74-106 mg/dL Calcium Level 9.0 8.7-10.4 mg/dL Troponin I High Sensitivity 73 *H </=34 ng/L Iron Level 43 L 50-170 ug/dL Total Iron Binding Capacity 162 L 250-425 ug/dL Percent Iron Saturation 26.5 15-50 % Ferritin 831.3 H 10-291 ng/mL Erythrocyte Sedimentation Rate 50 H 0-20 mm/hr C-Reactive Protein High Sensitivity 9.70 H <1.0 mg/dL Magnesium Level 2.3 1.6-2.6 mg/dL Triglycerides Level 162 H < 150 mg/dL Cholesterol Level 150 < 200 mg/dL LDL Cholesterol 41 < 100 mg/dL HDL Cholesterol 58 40-59 mg/dL Test 04/05/25 11:30 Range/Units Large Platelets Few Anisocytosis (manual) Slight Prothrombin Time 11.4 9.3-11.8 sec Prothrombin Time INR 1.08 0.9-1.15 Activated Partial Thromboplast Time 33.6 24.5-34.5 SEC Hemoglobin A1c 4.5 <5.7 % A1C Lactic Acid Level 1.0 0.4-2.0 mmol/L Total Bilirubin < 0.2 L 0.2-1.0 mg/dL Aspartate Amino Transferase (AST) 12 L 13-40 U/L Alanine Aminotransferase (ALT) < 9 7-40 U/L Alkaline Phosphatase 387 H 46-116 U/L Total Protein 6.9 5.7-8.2 g/dL Albumin 3.4 3.2-4.8 g/dL Thyroid Stimulating Hormone (TSH) 8.06 H 0.55-4.78 uIU/mL Free Thyroxine (T4) Calculated 0.49 L 0.89-1.76 ng/dL Hepatitis B Surface Antigen Negative Negative Microbiology Date/Time Source Procedure Growth Status 04/05/25 23:15 Nose MRSA Screen - Final Methicillin Resistant S.aureus Complete 04/05/25 11:30 Blood Blood Culture - Preliminary NO GROWTH AFTER 48 HOURS OF INCUBATION. Resulted Assessment Impression: Acute hypoxic respiratory failure Dependence on supplemental oxygen Non-ST elevation PR COPD Lung scarring Atelectasis Cardiogenic shock ESRD, on hemodialysis Hx of nicotine dependence Plan: Supplemental oxygen Currently on 5 LPM NC Titrate to keep O2 sats above 92%. Taper O2 as tolerated. Continue bronchodilators. Continue antibiotics Incentive spirometry Pressors for hemodynamic support On Levophed Titrate to keep mean arterial pressure greater than 65 mmHg. Follow up Cardiology recs Monitor renal function. Monitor electrolytes. Supplement as necessary. Monitor ins and outs. DVT prophylaxis. Prognosis: Poor given patient's multiple co-morbidities. Condition: Critical Rest of plan per hospitalist and other consultants. A total of 35 minutes of critical care time was spent reviewing the patient record, examining the patient, making a diagnostic and therapeutic plan, discussing this plan with the medical personnel, following up on diagnostic studies and following the patient for clinical stability excluding any and all procedures. At least 50% of this time was spent in direct, [id number] contact. Thank you, TISH Marsh, for allowing me to participate in this patient's care. Further recommendations will depend on the patient's clinical course. Please do not hesitate to contact me if you have any questions or concerns. This medical document was created using an electronic medical record system with [employer] dictation system. Although these documentations are being carefully reviewed, there may still be some phonetic and typographical changes. The errors are purely typographical, due to imperfection on the software program, and do not reflect any compromise in the patient's medical care. Plan discussed with: Patient, Other (RN/MD) Date of Service: Apr 06, 2025 Billing Provider: SHANNON RODRIGUEZ MD Common Visit Codes: [id number] INP/OBS CARE (HIGH) SHANNON RODRIGUEZ MD Apr 07, 2025 23:05
--- NOTE | 2025-04-07 23:42 | DVHPN2 ---
Subjective DOS: 04/07/2025 [facility] Patient seen and examined at bedside. Remains on supplemental oxygen Overnight events reviewed. Reviewed: Care Plan, H&P, Labs, Medications, Previous Orders, Radiology Changes from previous H/P or p: No Changes Cardiovascular: Chest Pain Objective Vitals Vital Signs Date Time Temp Pulse Resp B/P (MAP) Pulse Ox O2 Delivery O2 Flow Rate FiO2 04/07/25 22:00 74 04/07/25 22:00 11 96 Nasal Cannula* 4 36 04/07/25 22:00 122/53 (76) 04/07/25 16:00 98.7 98.7 Intake/Output Intake and Output 04/07/25 07:00 Intake Total 1286.375 ml Output Total 0 ml Balance 1286.375 ml Intake Oral 950 ml IV Total 336.375 ml Output Urine Total 0 ml General Appearance: Alert, Oriented X3, Cooperative, No acute distress Lungs: Clear to auscultation Cardiovascular: Regular rate Abdomen: Normal bowel sounds, Soft, No tenderness Neuro: Other (Paraplegia) Skin: Dry, Intact, Warm Medications Current Medications Medications Dose Ordered Sig/Margarito Route Start Time Stop Time Status Last Admin Dose Admin Piperacillin Sod/ Tazobactam Sod 100 ml @ 25 mls/hr Q12HR IV 04/05/25 22:00 04/07/25 21:43 25 MLS/HR Aspirin 81 mg DAILY PO 04/05/25 17:40 04/07/25 10:37 81 MG Atorvastatin Calcium 40 mg HS PO 04/05/25 22:00 04/07/25 21:42 40 MG Morphine Sulfate 2 mg Q30MP PRN IV 04/05/25 17:30 Acetaminophen 650 mg Q6HP PRN PO 04/05/25 17:30 Nitroglycerin 0.4 mg Q5MINP PRN SL 04/05/25 17:30 Ondansetron HCl 4 mg Q4HP PRN IV 04/05/25 17:30 Enoxaparin Sodium 30 mg DAILY SC 04/06/25 10:00 04/07/25 10:36 30 MG Multivit/Ca Carb/ B Cmplx/FA/Prenat 1 tab DAILY PO 04/06/25 10:00 04/07/25 10:36 1 TAB Clopidogrel Bisulfate 75 mg DAILY PO 04/06/25 10:00 04/07/25 10:36 75 MG Quetiapine Fumarate 100 mg DAILY PO 04/06/25 10:00 04/07/25 10:37 100 MG Patient Own Medication 3 cap HS PO 04/05/25 22:00 Levothyroxine Sodium 200 mcg QAM@0600 PO 04/06/25 06:00 04/07/25 06:26 200 MCG Sevelamer HCl 1,600 mg TIDWM PO 04/06/25 08:00 04/07/25 18:22 1,600 MG Hydromorphone HCl 0.5 mg Q4HPRN PRN IV 04/06/25 01:15 04/07/25 19:30 0.5 MG Pantoprazole Sodium 40 mg DAILY@0600 PO 04/07/25 06:00 04/07/25 06:27 40 MG Albuterol 2.5 mg Q6HPRN PRN NEB 04/06/25 10:30 04/07/25 18:34 2.5 MG Carisoprodol 350 mg TID PO 04/06/25 12:00 04/07/25 21:42 350 MG Norepinephrine Bitartrate 250 ml @ 1.875 mls/ hr Q24H IV 04/06/25 11:30 Mupirocin 1 applic BID EACHNOSTRI 04/06/25 22:00 04/11/25 21:59 04/07/25 21:42 1 APPLIC Bisacodyl 10 mg DAILYP PRN PA 04/06/25 16:45 04/06/25 16:55 10 MG Tramadol HCl 50 mg Q6HP PRN PO 04/07/25 09:45 04/07/25 22:03 50 MG Colchicine 0.6 mg Q12HR PO 04/07/25 10:00 04/07/25 21:42 0.6 MG Laboratory Results Laboratory Tests 04/07/25 01:40 Chemistry Test 04/07/25 01:40 Calcium Level 9.0 mg/dL (8.7-10.4) Microbiology Microbiology Date/Time Source Procedure Growth Status 04/05/25 23:15 Nose MRSA Screen - Final Methicillin Resistant S.aureus Complete 04/05/25 11:30 Blood Blood Culture - Preliminary NO GROWTH AFTER 48 HOURS OF INCUBATION. Resulted Assessment/Plan Assessment/Plan Impression: Acute hypoxic respiratory failure Dependence on supplemental oxygen Non-ST elevation WA COPD Lung scarring Atelectasis Cardiogenic shock ESRD, on hemodialysis Hx of nicotine dependence Events: Remains on supplemental oxygen, 5 LPM NC Taper O2 as tolerated Continue bronchodilators Continue antibiotics Incentive spirometry Levophed tapered off during the course of the day, hemodynamically stable. Labs and imaging reviewed. Rest of plan as noted below. Plan: Supplemental oxygen Titrate to keep O2 sats above 92%. Continue bronchodilators. Continue antibiotics Incentive spirometry Pressors as necessary for hemodynamic support Titrate to keep mean arterial pressure greater than 65 mmHg. Follow up Cardiology recs Monitor renal function. Monitor electrolytes. Supplement as necessary. Monitor ins and outs. DVT prophylaxis. Prognosis: Poor given patient's multiple co-morbidities. Condition: Critical Rest of plan per hospitalist and other consultants. A total of 35 minutes of critical care time was spent reviewing the patient record, examining the patient, making a diagnostic and therapeutic plan, discussing this plan with the medical personnel, following up on diagnostic studies and following the patient for clinical stability excluding any and all procedures. At least 50% of this time was spent in direct, [id number] contact. Thank you, TISH Marsh, for allowing me to participate in this patient's care. Further recommendations will depend on the patient's clinical course. Please do not hesitate to contact me if you have any questions or concerns. This medical document was created using an electronic medical record system with [employer] dictation system. Although these documentations are being carefully reviewed, there may still be some phonetic and typographical changes. The errors are purely typographical, due to imperfection on the software program, and do not reflect any compromise in the patient's medical care. Plan discussed with: Other (MARIO Napoles) Date of Service: Apr 07, 2025 Billing Provider: SHANNON RODRIGUEZ MD Common Visit Codes: [id number] INP/OBS CARE(HIGH), [id number] CARE 30-74 MIN SHANNON RODRIGUEZ MD Apr 07, 2025 23:42
[2025-04-08] VITALS (63 sets, daily range): BP systolic 103–153; BP diastolic 38–70; PULSE 71–100; RESP 9–26; TEMP 98.1–99.1; O2SAT 89–100
[2025-04-08 04:28] LABS: Hematocrit 22.7 % (36.0-46.0); Hemoglobin 7.5 g/dL (12.2-16.2); Mean Corpuscular Hemoglobin 32.1 pg (28.0-32.0); Mean Corpuscular Volume 96.8 fL (80.0-100.0)
[2025-04-08 05:33] LABS: Total Cells Counted 100.0 (100)
--- NOTE | 2025-04-08 07:26 | ECG ---
[facility] Test Date: 2025-04-06 Test Time: 05:58:42 Pat Name: RACQUEL SAEZ Department: icu Room: 0234T Gender: F First Aid Nurse: caroline : 1955 Requested By: ENEIDA DOBBS Order Number: [id number] Reading MD: Kris Carlisle Measurements Intervals [place] Rate: 82 P: 47 IA: 179 QRS: -5 QRSD: 104 T: 118 QT: 396 QTc: 463 Interpretive Statements Sinus rhythm Nonspecific T abnormalities, lateral leads Electronically Signed On 04-11-2025 21:05:41 PDT by Kris Carlisle Please click the below link to view image of tracing.
[2025-04-08 07:33] LABS: Anion Gap 8 (5-15)
[2025-04-08 07:34] LABS: Calcium 9.5 mg/dL (8.7-10.4); Carbon Dioxide 31 mmol/L (20-31); Chloride 97 mmol/L (98-107); Potassium 4.3 mmol/L (3.5-5.1); Sodium 136 mmol/L (136-145)
[2025-04-08 07:38] LABS: BUN/Creatinine Ratio 7.9 (10.0-20.0); Blood Urea Nitrogen 19 mg/dL (9-23); Glucose 84 mg/dL (74-106)
[2025-04-08] MEDS: ONDANSETRON HCL 4 MG/2 ML VIAL IV PRN (12:36)
[2025-04-08] MEDS: LACTULOSE 20Gm/30ML SOLN PO ONE (13:16)
--- NOTE | 2025-04-08 13:42 | DVHPNRES ---
Progress Note Date Seen: Apr 08, 2025 Resident Creating Document: CHANDNI BREWSTER RESIDENT Medical Necessity Reason Pt with a Central, PICC or Fol: Yes Subjective Review of Systems This is a 70-year-old female with past medical history of paraplegia since 2018 after surgery spine, CAD with no stent recent angiogram 3 months ago in [facility] reported normal, HTN, COPD on 2 L home oxygen, CHF with preserved ejection fraction, bed-bound since surgery 2017, bipolar disorder ESRD on hemodialysis Tuesday umbilical hernia, tonsillectomy, hemorrhoids, I and D on her decubitus ulcer sacral region present to ER with complaint of chest pain for 2 weeks which is getting worse before arriving to the hospital. Esterase pain was 9/10 intensity, sharp, intermitted, no aggravating or relieving factor. History of broken right hip 1 year ago and surgery done in [facility] but no prosthesis. Admission patient become hemodynamically unstable and started pressor. Off pressor on 04/07/2025. Past medical history: CAD, CHF, HTN, HI, COPD on 2 L home oxygen, bipolar disorder, ESRD, ventral umbilical hernia, hemorrhoid Past Surgical history: Tonsillectomy Family history cancer-mother with pacemaker and breast cancer, father with colon cancer Social history: X 0 smoker, quit 1 year ago, no ETOH use. Denies any illicit drug Family history lives with family, having caregivers 04/08/2025: And seen and evaluated in bedside. Patient complained left upper extremity pain associated with chest pain. No pain on rest but aggravated on movement. Labs for rheumatoid factor, uric acid level we will follow. Physical therapy during discharge. Objective vital signs Vital Sign Date Time Temp Pulse Resp B/P (MAP) Pulse Ox O2 Delivery O2 Flow Rate FiO2 04/08/25 12:15 88 11 137/67 (90) 89 04/08/25 12:00 Nasal Cannula* 3 32 04/08/25 12:00 98.4 98.4 Total Intake and Output 04/07/25 04/07/25 04/08/25 15:00 23:00 07:00 Intake Total 75 ml 485 ml 365 ml Output Total 0 ml 0 ml Balance 75 ml 485 ml 365 ml medications Current Medications Medications Dose Ordered Sig/Margarito Route Start Time Stop Time Status Last Admin Dose Admin Piperacillin Sod/ Tazobactam Sod 100 ml @ 25 mls/hr Q12HR IV 04/05/25 22:00 04/08/25 10:36 25 MLS/HR Aspirin 81 mg DAILY PO 04/05/25 17:40 04/08/25 10:37 81 MG Atorvastatin Calcium 40 mg HS PO 04/05/25 22:00 04/07/25 21:42 40 MG Morphine Sulfate 2 mg Q30MP PRN IV 04/05/25 17:30 Acetaminophen 650 mg Q6HP PRN PO 04/05/25 17:30 Nitroglycerin 0.4 mg Q5MINP PRN SL 04/05/25 17:30 Ondansetron HCl 4 mg Q4HP PRN IV 04/05/25 17:30 04/08/25 12:36 4 MG Enoxaparin Sodium 30 mg DAILY SC 04/06/25 10:00 04/08/25 10:37 30 MG Multivit/Ca Carb/ B Cmplx/FA/Prenat 1 tab DAILY PO 04/06/25 10:00 04/08/25 10:37 1 TAB Clopidogrel Bisulfate 75 mg DAILY PO 04/06/25 10:00 04/08/25 10:37 75 MG Quetiapine Fumarate 100 mg DAILY PO 04/06/25 10:00 04/08/25 10:37 100 MG Patient Own Medication 3 cap HS PO 04/05/25 22:00 Levothyroxine Sodium 200 mcg QAM@0600 PO 04/06/25 06:00 04/08/25 05:48 200 MCG Sevelamer HCl 1,600 mg TIDWM PO 04/06/25 08:00 04/08/25 08:42 1,600 MG Hydromorphone HCl 0.5 mg Q4HPRN PRN IV 04/06/25 01:15 04/08/25 11:40 0.5 MG Pantoprazole Sodium 40 mg DAILY@0600 PO 04/07/25 06:00 04/08/25 05:48 40 MG Albuterol 2.5 mg Q6HPRN PRN NEB 04/06/25 10:30 04/07/25 18:34 2.5 MG Carisoprodol 350 mg TID PO 04/06/25 12:00 04/08/25 05:48 350 MG Norepinephrine Bitartrate 250 ml @ 1.875 mls/ hr Q24H IV 04/06/25 11:30 Mupirocin 1 applic BID EACHNOSTRI 04/06/25 22:00 04/11/25 21:59 04/08/25 10:38 1 APPLIC Bisacodyl 10 mg DAILYP PRN OK 04/06/25 16:45 04/06/25 16:55 10 MG Tramadol HCl 50 mg Q6HP PRN PO 04/07/25 09:45 04/07/25 22:03 50 MG Colchicine 0.6 mg Q12HR PO 04/07/25 10:00 04/08/25 10:43 0.6 MG Examination Constitutional: Patient lying on bed. On nasal cannula 5 L oxygen ENT: No: Ear pain, Ear discharge, Nose pain, Nose discharge, Nose congestion, Mouth pain Respiratory: Shortness of breath; No: Cough, Dry, SOB with excertion, mild crackles left side of the lung Cardiovascular: No: Chest Pain, Palpitations, Orthopnea, Paroxysmal Noc. Dyspnea, Edema, Gastrointestinal: Tender on deep palpation left lower quadrant, bowel sounds present Genitourinary: Suprapubic area and renal angle nontender on deep palpation Musculoskeletal: Gait instability, bed-bound, right hip tender on deep palpation Skin: No: Rash, Lesions, Jaundice, Bruising, tunnel catheter on left side of the chest Neurological: Paraplegia, decreased sensation lower extremity, left upper extremity pain on deep palpation laboratory and microbiology Laboratory Tests 04/08/25 07:00 04/08/25 03:51 Test 04/08/25 07:00 Range/Units Serum Glucose 84 74-106 mg/dL Microbiology Date/Time Source Procedure Growth Status 04/05/25 23:15 Nose MRSA Screen - Final Methicillin Resistant S.aureus Complete 04/05/25 11:30 Blood Blood Culture - Preliminary NO GROWTH AFTER 72 HOURS OF INCUBATION. Resulted Problem List/Assessment/Plan Problem List/Assessment/Plan NEURO: Paraplegia since 2018 after surgery in the spine * Not on any IV sedative * Bed-bound since 2018 * Plan: Physical therapy when patient is stable, fall precaution CARDIOVASCULAR: Hypotensive shock requiring pressor support Cardiomegaly. NSTEMI likely type 2 secondary to demand ischemia History of CAD, patient denies and claims she does not have any stents in her heart. History of CHF, HI Dyslipidemia * trop 80s to 90s * EKG showed no ST-T changes * Septic Shock secondary to pneumonia * Likely heart failure with preserved ejection fraction * Echo on 04/06/2025 shows LVEF 65%, moderately dilated right ventricle and right atrium * Cardiology: Elevated Troponin - trending up, likely demand ischemia in setting of CPR, septic shock. EKG-no ST and T-wave abnormalities. Recommend conservative medical management. * Plan Continue atorvastatin, aspirin, clopidogrel, nitroglycerin sublingual as needed for chest pain PULMONARY: Acute hypoxic respiratory failure due to COPD exacerbation/pneumonia Possible aspiration pneumonia Possible gram positive/Gram-negative pneumonia History of COPD with 2L home O2 History of tobacco use * Plan: IV antibiotics Zosyn, Continue breathing treatment with ipratropium and albuterol GASTROINTESTINAL: History of GERD History of ventral umbilical hernia. History of tonsillectomy. History of hemorrhoids. Sebaceous cyst abdominal wall Elevated ALP US soft tissue: 2x1x1 cm subcutaneous cystic mass which could be represent a sebaceous cyst * Plan: :Continue Protonix b.i.d. GENITOURINARY: CKD on HD HD on Tuesday Nephrology consult appreciated Hyponatremia Hyperkalemia * plan:Continue savelamer, bmp, hemodialysis . HEMATOLOGY: Anemia of chronic disease secondary to renal failure * Ferritin 831.3, iron 83, TIBC is 162, % saturation 26.5 * Thrombocytopenia * Plan:cbc, 1 unit of PRBC transfusion on next hemodialysis. 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 History of chronic fracture of the right inferior pubic ramus. History of paraplegia. Gout Gait instability * Patient bed-bound since then * Plan to continue pain management, colchicine PSYCHIATRIC History of bipolar disorder Anxiety disorder * Plan continue alprazolam and quetiapine History of sacral ulcer Sacral area healing scar tissue with no active discharge DIET: Renal DVT prophylax: Lovenox GI prophylaxis: Protonix Bowel regimen: Lactulose Code status: Full code LINES/DRAINS/ACCESS: IV access: Left-sided tunneled catheter Drips: s/p Levophed, currently not on any drips Sanchez catheter: No DISPOSITION: ICU Patient's status discussed with patient, caregiver -Alondra, daughter ,Keshia. Critical care time spent more than 81 minutes, including patient care, chart review, and updating the family. Excluding any procedures Case discussed with Dr. Gill Plan discussed with: Patient, Other (nurse, caregiver-Gabi) Dietary Evaluation Review Recommendations by RD: Protein Supplementation Comments: 1) Add renal restriction to cardiac diet 2) Initiate Nepro qd 3) Encourage optimal PO intake 4) Follow-up with cardiology, pulmonology, and nephrology 5) Continue to monitor I&O, labs, and skin integrity Expected Outcomes/Goals: 1) appetite and labs to improve 2) wound to improve 3) f/u in 3-5 days Date of Service: Apr 08, 2025 Billing Provider: LUANNE GILL MD Common Visit Codes: [id number] CARE 30-74 MIN, [id number] CARE-EACH +30MIN CHANDNI BREWSTER RESIDENT Apr 08, 2025 13:42 LUANNE GILL MD Apr 09, 2025 15:18
[2025-04-08] MEDS: KETOROLAC TROMETH 30 MG/ML 1ML VIAL IV PRN (18:30)
--- NOTE | 2025-04-08 19:05 | DVHPN2 ---
Progress Note - Dictate Date Seen: Apr 08, 2025 Medical Necessity Reason Pt with a Central, PICC or Fol: Yes Subjective Patient was seen and evaluated in follow up in the ICU. The patient is on 4 LPM NC. Abdominal US shows a 2 x 1 x 2 subcutaneous cystic mass which could represent a sebaceous cyst. HGB 7.5, HCT 22.7, Resin Filterer 2.40. MRSA is positive. vital signs Vital Sign Date Time Temp Pulse Resp B/P (MAP) Pulse Ox O2 Delivery O2 Flow Rate FiO2 04/08/25 18:09 90 04/08/25 18:02 11 98 Nasal Cannula* 4 36 04/08/25 17:00 114/49 (70) 04/08/25 16:00 98.7 98.7 Total Intake and Output 04/07/25 04/07/25 04/08/25 15:00 23:00 07:00 Intake Total 75 ml 485 ml 365 ml Output Total 0 ml 0 ml Balance 75 ml 485 ml 365 ml medications Current Medications Medications Dose Ordered Sig/Margarito Route Start Time Stop Time Status Last Admin Dose Admin Piperacillin Sod/ Tazobactam Sod 100 ml @ 25 mls/hr Q12HR IV 04/05/25 22:00 04/08/25 10:36 25 MLS/HR Aspirin 81 mg DAILY PO 04/05/25 17:40 04/08/25 10:37 81 MG Atorvastatin Calcium 40 mg HS PO 04/05/25 22:00 04/07/25 21:42 40 MG Morphine Sulfate 2 mg Q30MP PRN IV 04/05/25 17:30 Acetaminophen 650 mg Q6HP PRN PO 04/05/25 17:30 Nitroglycerin 0.4 mg Q5MINP PRN SL 04/05/25 17:30 Ondansetron HCl 4 mg Q4HP PRN IV 04/05/25 17:30 04/08/25 12:36 4 MG Enoxaparin Sodium 30 mg DAILY SC 04/06/25 10:00 04/08/25 10:37 30 MG Multivit/Ca Carb/ B Cmplx/FA/Prenat 1 tab DAILY PO 04/06/25 10:00 04/08/25 10:37 1 TAB Clopidogrel Bisulfate 75 mg DAILY PO 04/06/25 10:00 04/08/25 10:37 75 MG Quetiapine Fumarate 100 mg DAILY PO 04/06/25 10:00 04/08/25 10:37 100 MG Patient Own Medication 3 cap HS PO 04/05/25 22:00 Levothyroxine Sodium 200 mcg QAM@0600 PO 04/06/25 06:00 04/08/25 05:48 200 MCG Sevelamer HCl 1,600 mg TIDWM PO 04/06/25 08:00 04/08/25 08:42 1,600 MG Hydromorphone HCl 0.5 mg Q4HPRN PRN IV 04/06/25 01:15 04/08/25 16:01 0.5 MG Pantoprazole Sodium 40 mg DAILY@0600 PO 04/07/25 06:00 04/08/25 05:48 40 MG Albuterol 2.5 mg Q6HPRN PRN NEB 04/06/25 10:30 04/08/25 13:21 2.5 MG Carisoprodol 350 mg TID PO 04/06/25 12:00 04/08/25 16:02 350 MG Mupirocin 1 applic BID EACHNOSTRI 04/06/25 22:00 04/11/25 21:59 04/08/25 10:38 1 APPLIC Bisacodyl 10 mg DAILYP PRN GA 04/06/25 16:45 04/06/25 16:55 10 MG Colchicine 0.6 mg Q12HR PO 04/07/25 10:00 04/08/25 10:43 0.6 MG Carvedilol 12.5 mg Q12HR PO 04/08/25 22:00 Ketorolac Tromethamine 15 mg Q6HPRN PRN IV 04/08/25 17:45 04/13/25 17:44 objective GENERAL: Alert and oriented x 3. No acute distress. Paraplegic. EYES: PERRL, EOMI. Anicteric. HENT: Moist mucous membranes. LUNGS: Clear to auscultation bilaterally. CARDIOVASCULAR: Regular rate and rhythm. ABDOMEN: Soft, nontender and nondistended. EXTREMITIES: No edema. NEUROLOGIC: No focal neurological deficits. SKIN: Wounds (Decubitus). laboratory and microbiology Laboratory Tests 04/08/25 07:00 04/08/25 03:51 Test 04/08/25 07:00 Range/Units Serum Glucose 84 74-106 mg/dL Problem List NSTEMI likely type 2. Anemia likely due to chronic renal failure. Cardiomegaly. Probable pneumonia. Elevated ALP. Hyponatremia. Hyperkalemia. Thrombocytopenia. Acute on chronic renal failure on dialysis (M/W/F). Acute hypoxic respiratory failure on supportive oxygen. 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 History of chronic fracture of the right inferior pubic ramus. History of paraplegia. History of CAD, patient denies and claims she does not have any stents in her heart. History of hypertension. History of COPD. History of CHF. History of bed-bound due to back surgery in 2018 for cyst removal. History of DC. History of bipolar disease. History of ventral umbilical hernia. History of tonsillectomy. History of hemorrhoids. History of I&D for decubitus ulcer. History of tobacco use. Assessment/Plan Continued all current supportive medical care. Aspirin, Plavix. DVT and GI prophylactics. Dilaudid for pain management. IV antibiotics as ordered. Additional plan as per the hospital course. Critical care time of 45 minutes provided to include time spent evaluation of patient at bedside, when appropriate patient/family education for diagnosis, treatment plan, review of pertinent medical information and discussion of care with specialty providers and PCP. Dietary Evaluation Review Recommendations by RD: Protein Supplementation Comments: 1) Add renal restriction to cardiac diet 2) Initiate Nepro qd 3) Encourage optimal PO intake 4) Follow-up with cardiology, pulmonology, and nephrology 5) Continue to monitor I&O, labs, and skin integrity Expected Outcomes/Goals: 1) appetite and labs to improve 2) wound to improve 3) f/u in 3-5 days Plan discussed with: Patient WENDY COREAS MD Apr 08, 2025 19:05
[2025-04-08] MEDS: MELATONIN 5 MG TAB PO ONE (21:20)
[2025-04-08] MEDS: CARVEDILOL 12.5 MG TAB PO SCH (21:21)
--- NOTE | 2025-04-08 22:01 | DVHPN2 ---
Progress Note Date Seen: Apr 08, 2025 Medical Necessity Reason Pt with a Central, PICC or Fol: Yes Subjective Patient reports: Feels worse Review of Systems: Deferred Objective vital signs Vital Sign Date Time Temp Pulse Resp B/P (MAP) Pulse Ox O2 Delivery O2 Flow Rate FiO2 04/08/25 21:21 82 123/58 04/08/25 21:00 11 98 04/08/25 20:00 99.1 99.1 04/08/25 20:00 Nasal Cannula* 4 36 Total Intake and Output 04/07/25 04/07/25 04/08/25 15:00 23:00 07:00 Intake Total 75 ml 485 ml 365 ml Output Total 0 ml 0 ml Balance 75 ml 485 ml 365 ml medications Current Medications Medications Dose Ordered Sig/Margarito Route Start Time Stop Time Status Last Admin Dose Admin Piperacillin Sod/ Tazobactam Sod 100 ml @ 25 mls/hr Q12HR IV 04/05/25 22:00 04/08/25 21:22 25 MLS/HR Aspirin 81 mg DAILY PO 04/05/25 17:40 04/08/25 10:37 81 MG Atorvastatin Calcium 40 mg HS PO 04/05/25 22:00 04/08/25 21:21 40 MG Morphine Sulfate 2 mg Q30MP PRN IV 04/05/25 17:30 Acetaminophen 650 mg Q6HP PRN PO 04/05/25 17:30 Nitroglycerin 0.4 mg Q5MINP PRN SL 04/05/25 17:30 Ondansetron HCl 4 mg Q4HP PRN IV 04/05/25 17:30 04/08/25 12:36 4 MG Enoxaparin Sodium 30 mg DAILY SC 04/06/25 10:00 04/08/25 10:37 30 MG Multivit/Ca Carb/ B Cmplx/FA/Prenat 1 tab DAILY PO 04/06/25 10:00 04/08/25 10:37 1 TAB Clopidogrel Bisulfate 75 mg DAILY PO 04/06/25 10:00 04/08/25 10:37 75 MG Quetiapine Fumarate 100 mg DAILY PO 04/06/25 10:00 04/08/25 10:37 100 MG Patient Own Medication 3 cap HS PO 04/05/25 22:00 Levothyroxine Sodium 200 mcg QAM@0600 PO 04/06/25 06:00 04/08/25 05:48 200 MCG Sevelamer HCl 1,600 mg TIDWM PO 04/06/25 08:00 04/08/25 08:42 1,600 MG Hydromorphone HCl 0.5 mg Q4HPRN PRN IV 04/06/25 01:15 04/08/25 20:06 0.5 MG Pantoprazole Sodium 40 mg DAILY@0600 PO 04/07/25 06:00 04/08/25 05:48 40 MG Albuterol 2.5 mg Q6HPRN PRN NEB 04/06/25 10:30 04/08/25 13:21 2.5 MG Carisoprodol 350 mg TID PO 04/06/25 12:00 04/08/25 21:21 350 MG Mupirocin 1 applic BID EACHNOSTRI 04/06/25 22:00 04/11/25 21:59 04/08/25 21:22 1 APPLIC Bisacodyl 10 mg DAILYP PRN [place] 04/06/25 16:45 04/06/25 16:55 10 MG Colchicine 0.6 mg Q12HR PO 04/07/25 10:00 04/08/25 21:22 0.6 MG Carvedilol 12.5 mg Q12HR PO 04/08/25 22:00 04/08/25 21:21 12.5 MG Ketorolac Tromethamine 15 mg Q6HPRN PRN IV 04/08/25 17:45 04/13/25 17:44 04/08/25 18:30 15 MG laboratory and microbiology Laboratory Tests 04/08/25 07:00 04/08/25 03:51 Test 04/08/25 07:00 Range/Units Serum Glucose 84 74-106 mg/dL Microbiology Date/Time Source Procedure Growth Status 04/05/25 23:15 Nose MRSA Screen - Final Methicillin Resistant S.aureus Complete 04/05/25 11:30 Blood Blood Culture - Preliminary NO GROWTH AFTER 72 HOURS OF INCUBATION. Resulted Problem List/Assessment/Plan Problem List/Assessment/Plan 1) ESRD on dialysis 2) working diagnosis of possible septic shock - prelim report of blood cultures are negative 3) chest pain 4) anemia secondary to CKD five 5) paraplegia recs HD tomorrow also bp better Plan discussed with: Patient Dietary Evaluation Review Recommendations by RD: Protein Supplementation Comments: 1) Add renal restriction to cardiac diet 2) Initiate Nepro qd 3) Encourage optimal PO intake 4) Follow-up with cardiology, pulmonology, and nephrology 5) Continue to monitor I&O, labs, and skin integrity Expected Outcomes/Goals: 1) appetite and labs to improve 2) wound to improve 3) f/u in 3-5 days MALVIN SEAY MD Apr 08, 2025 22:01
[2025-04-09] VITALS (14 sets, daily range): BP systolic 100–206; BP diastolic 50–118; PULSE 16–103; RESP 12–18; TEMP 97.2–98.7; O2SAT 94–100
[2025-04-09 05:29] LABS: Hematocrit 23.4 % (36.0-46.0)
[2025-04-09 05:33] LABS: Hemoglobin 7.7 g/dL (12.2-16.2); Mean Corpuscular Hemoglobin 31.9 pg (28.0-32.0); Mean Corpuscular Volume 97.5 fL (80.0-100.0)
[2025-04-09 05:45] LABS: Carbon Dioxide 29 mmol/L (20-31)
[2025-04-09 05:46] LABS: Calcium 9.1 mg/dL (8.7-10.4)
[2025-04-09 05:50] LABS: Uric Acid 4.1 mg/dL (3.1-7.8)
[2025-04-09 05:51] LABS: BUN/Creatinine Ratio 9.1 (10.0-20.0); Glucose 90 mg/dL (74-106); Magnesium 2.3 mg/dL (1.6-2.6)
[2025-04-09 05:58] LABS: Blood Urea Nitrogen 30 mg/dL (9-23)
[2025-04-09 06:01] LABS: Anion Gap 11 (5-15); Chloride 99 mmol/L (98-107); Potassium 5.1 mmol/L (3.5-5.1); Sodium 139 mmol/L (136-145)
[2025-04-09 06:47] LABS: Giant Platelets Few; Total Cells Counted 100.0 (100)
--- NOTE | 2025-04-09 08:18 | DVH ---
CHEST RADIOGRAPH Indication: R/O PULM DISEASE Technique: Single frontal view of the chest was obtained COMPARISON: XY CHEST PORTABLE on DOS: 04/09/25, XY CHEST PORTABLE on DOS: 04/07/25, XY CHEST PORTABLE o n DOS: 04/05/25, XY CHEST PORTABLE on DOS: 12/07/24, XY CHEST PORTABLE on DOS: 03/12/24 FINDINGS: Lines and Tubes: Left tunneled central venous catheter in satisfactory position. Lungs: Unchanged right lower lobe airspace opacities. Pleura: No effusion.No pneumothorax. Cardiomediastinal contours: Unchanged cardiomegaly.Unchanged pulmonary vascular congestion. Bones: Thoracolumbar spinal fixation hardware.Unremarkable. IMPRESSION: Unchanged right lower lobe airspace opacities.
--- NOTE | 2025-04-09 12:06 | DVHPNRES ---
Progress Note Date Seen: Apr 09, 2025 Resident Creating Document: CHANDNI BREWSTER RESIDENT Medical Necessity Reason Pt with a Central, PICC or Fol: Yes Subjective Review of Systems This is a 70-year-old female with past medical history of paraplegia since 2018 after surgery spine, CAD with no stent recent angiogram 3 months ago in [facility] reported normal, HTN, COPD on 2 L home oxygen, CHF with preserved ejection fraction, bed-bound since surgery 2017, bipolar disorder ESRD on hemodialysis Tuesday umbilical hernia, tonsillectomy, hemorrhoids, I and D on her decubitus ulcer sacral region present to ER with complaint of chest pain for 2 weeks which is getting worse before arriving to the hospital. Esterase pain was 9/10 intensity, sharp, intermitted, no aggravating or relieving factor. History of broken right hip 1 year ago and surgery done in [facility] but no prosthesis. Admission patient become hemodynamically unstable and started pressor. Off pressor on 04/07/2025. Past medical history: CAD, CHF, HTN, VT, COPD on 2 L home oxygen, bipolar disorder, ESRD, ventral umbilical hernia, hemorrhoid Past Surgical history: Tonsillectomy Family history cancer-mother with pacemaker and breast cancer, father with colon cancer Social history: X 0 smoker, quit 1 year ago, no ETOH use. Denies any illicit drug Family history lives with family, having caregivers 04/08/2025: Patient seen and evaluated in bedside. Patient complained left upper extremity pain associated with chest pain. No pain on rest but aggravated on movement. Labs for rheumatoid factor, uric acid level we will follow. Physical therapy during discharge. 04/09/2025: Patient seen and evaluated in bedside today. Patient left hand swelling is improving but chest pain on deep palpation. Colace and lactulose ordered for constipation, monitor for bowel movement. Patient currently on oxygen via nasal cannula. Objective vital signs Vital Sign Date Time Temp Pulse Resp B/P (MAP) Pulse Ox O2 Delivery O2 Flow Rate FiO2 04/09/25 10:15 76 133/76 04/09/25 08:54 94 Nasal Cannula 3.0 04/09/25 08:53 32 04/09/25 08:52 98.3 16 98.3 Total Intake and Output 04/08/25 04/08/25 04/09/25 15:00 23:00 07:00 Intake Total 500 ml 240 ml Output Total 0 ml Balance 500 ml 240 ml medications Current Medications Medications Dose Ordered Sig/Margarito Route Start Time Stop Time Status Last Admin Dose Admin Piperacillin Sod/ Tazobactam Sod 100 ml @ 25 mls/hr Q12HR IV 04/05/25 22:00 04/09/25 10:14 25 MLS/HR Aspirin 81 mg DAILY PO 04/05/25 17:40 04/09/25 10:15 81 MG Atorvastatin Calcium 40 mg HS PO 04/05/25 22:00 04/08/25 21:21 40 MG Morphine Sulfate 2 mg Q30MP PRN IV 04/05/25 17:30 Acetaminophen 650 mg Q6HP PRN PO 04/05/25 17:30 Nitroglycerin 0.4 mg Q5MINP PRN SL 04/05/25 17:30 Ondansetron HCl 4 mg Q4HP PRN IV 04/05/25 17:30 04/08/25 12:36 4 MG Enoxaparin Sodium 30 mg DAILY SC 04/06/25 10:00 04/09/25 10:16 30 MG Multivit/Ca Carb/ B Cmplx/FA/Prenat 1 tab DAILY PO 04/06/25 10:00 04/09/25 10:15 1 TAB Clopidogrel Bisulfate 75 mg DAILY PO 04/06/25 10:00 04/09/25 10:15 75 MG Quetiapine Fumarate 100 mg DAILY PO 04/06/25 10:00 04/09/25 10:14 100 MG Patient Own Medication 3 cap HS PO 04/05/25 22:00 Levothyroxine Sodium 200 mcg QAM@0600 PO 04/06/25 06:00 04/09/25 05:13 200 MCG Sevelamer HCl 1,600 mg TIDWM PO 04/06/25 08:00 04/09/25 07:37 1,600 MG Hydromorphone HCl 0.5 mg Q4HPRN PRN IV 04/06/25 01:15 04/09/25 07:41 0.5 MG Pantoprazole Sodium 40 mg DAILY@0600 PO 04/07/25 06:00 04/09/25 05:13 40 MG Albuterol 2.5 mg Q6HPRN PRN NEB 04/06/25 10:30 04/08/25 22:27 2.5 MG Carisoprodol 350 mg TID PO 04/06/25 12:00 04/09/25 05:13 350 MG Mupirocin 1 applic BID EACHNOSTRI 04/06/25 22:00 04/11/25 21:59 04/08/25 21:22 1 APPLIC Bisacodyl 10 mg DAILYP PRN [place] 04/06/25 16:45 04/06/25 16:55 10 MG Colchicine 0.6 mg Q12HR PO 04/07/25 10:00 04/09/25 10:15 0.6 MG Carvedilol 12.5 mg Q12HR PO 04/08/25 22:00 04/09/25 10:15 12.5 MG Ketorolac Tromethamine 15 mg Q6HPRN PRN IV 04/08/25 17:45 04/13/25 17:44 04/09/25 01:27 15 MG Examination Constitutional: Patient lying on bed. On nasal cannula 3 L oxygen ENT: No: Ear pain, Ear discharge, Nose pain, Nose discharge, Nose congestion, Mouth pain Respiratory: Bilateral equal entry at both lung, chest tender on deep palpation Cardiovascular: No: Chest Pain, Palpitations, Orthopnea, Paroxysmal Noc. Dyspnea, Edema, Gastrointestinal: Tender on deep palpation left lower quadrant, bowel sounds present Genitourinary: Suprapubic area and renal angle non tender on deep palpation Musculoskeletal: Gait instability, bed-bound, right hip tender on deep palpation Skin: No: Rash, Lesions, Jaundice, Bruising, tunnel catheter on left side of the chest Neurological: Paraplegia, decreased sensation lower extremity, left upper extremity pain on deep palpation laboratory and microbiology Laboratory Tests 04/09/25 05:01 Test 04/09/25 05:01 Range/Units Serum Glucose 90 74-106 mg/dL Microbiology Date/Time Source Procedure Growth Status 04/05/25 23:15 Nose MRSA Screen - Final Methicillin Resistant S.aureus Complete 04/05/25 11:30 Blood Blood Culture - Preliminary NO GROWTH AFTER 72 HOURS OF INCUBATION. Resulted Problem List/Assessment/Plan Problem List/Assessment/Plan NEURO: Paraplegia since 2018 after surgery in the spine * Not on any IV sedative * Bed-bound since 2018 * Plan: Physical therapy when patient is stable, fall precaution CARDIOVASCULAR: Hypotensive shock requiring pressor support Cardiomegaly. NSTEMI likely type 2 secondary to demand ischemia History of CAD, patient denies and claims she does not have any stents in her heart. History of CHF, VT Dyslipidemia * trop 80s to 90s * EKG showed no ST-T changes * Septic Shock secondary to pneumonia * Likely heart failure with preserved ejection fraction * Echo on 04/06/2025 shows LVEF 65%, moderately dilated right ventricle and right atrium * Cardiology: Elevated Troponin - trending up, likely demand ischemia in setting of CPR, septic shock. EKG-no ST and T-wave abnormalities. Recommend conservative medical management. * Plan Continue atorvastatin, aspirin, clopidogrel, nitroglycerin sublingual as needed for chest pain PULMONARY: Acute hypoxic respiratory failure due to COPD exacerbation/pneumonia Possible aspiration pneumonia Possible gram positive/Gram-negative pneumonia History of COPD with 2L home O2 History of tobacco use * Plan: IV antibiotics Zosyn, Continue breathing treatment with ipratropium and albuterol GASTROINTESTINAL: History of GERD History of ventral umbilical hernia. History of tonsillectomy. History of hemorrhoids. Sebaceous cyst abdominal wall Elevated ALP Chronic constipation likely due to bed-bound US soft tissue: 2x1x1 cm subcutaneous cystic mass which could be represent a sebaceous cyst. * Plan: :Continue Protonix , lactulose and Colace as needed. GENITOURINARY: CKD on HD HD on Tuesday Nephrology consult appreciated Hyponatremia Hyperkalemia * plan:Continue savelamer, bmp, hemodialysis. HEMATOLOGY: Anemia of chronic disease secondary to renal failure * Ferritin 831.3, iron 83, TIBC is 162, % saturation 26.5 on admission * Thrombocytopenia * Plan:cbc, 1 unit of PRBC transfusion on 04/10/2025. METABOLIC: Hypothyroidism Vitamin D deficiency THS 8.06, free T4 0.49 Lactic acid 1.0 Hemoglobin A1c 4.5 * Plan:Continue levothyroxine, vitamin D3 INFECTIOUS DISEASE: History of aspiration pneumonia Possible aspiration pneumonia Positive MRSA screen, mupirocin * Blood culture x2 negative * CRP 9.70 * plan:Continue Zosyn, CT chest ordered today. 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 History of chronic fracture of the right inferior pubic ramus. History of paraplegia. Gout Gait instability * Patient bed-bound since then * Uric acid level 4.1 * Plan to continue pain management, PSYCHIATRIC History of bipolar disorder Anxiety disorder * Plan continue alprazolam and quetiapine History of sacral ulcer Sacral area healing scar tissue with no active discharge DIET: Renal DVT prophylax: Lovenox GI prophylaxis: Protonix Bowel regimen: Lactulose Code status: Full code- time spent 19 mins for advance care planning LINES/DRAINS/ACCESS: IV access: Left-sided tunneled catheter Drips: s/p Levophed, currently not on any drips DISPOSITION: ICU Patient's status discussed with patient daughter Maryam. Case discussed with Dr. Gill Plan discussed with: Patient, Daughter (Maryam), Other (Nurse,) My Orders My Orders Orders - CHANDNI BREWSTER Procedure Category Date Status Time Carvedilol Tablet PHA 04/08/25 In Process (Coreg Tablet) 22:00 Ketorolac Injection PHA 04/08/25 In Process (Toradol Injection) 17:45 Rheumatoid Arthritis LAB 04/09/25 In Process Factor 04:00 Chest Portable XY 04/09/25 Taken 04:00 Dietary Evaluation Review Recommendations by RD: Protein Supplementation Comments: 1) Add renal restriction to cardiac diet 2) Initiate Nepro qd 3) Encourage optimal PO intake 4) Follow-up with cardiology, pulmonology, and nephrology 5) Continue to monitor I&O, labs, and skin integrity Expected Outcomes/Goals: 1) appetite and labs to improve 2) wound to improve 3) f/u in 3-5 days Date of Service: Apr 09, 2025 Billing Provider: LUANNE GILL MD Common Visit Codes: [id number] INP/OBS CARE(HIGH) Secondary Visit Codes: [id number] CARE PLAN 30 MINUTES CHANDNI BREWSTER Apr 09, 2025 12:06 LUANNE GILL MD Apr 10, 2025 15:33
[2025-04-09] MEDS: DOCUSATE SOD 100 MG CAP PO PRN (17:53)
[2025-04-09] MEDS ORDERED: KETOROLAC TROMETH 30 MG/ML 1ML VIAL IV SCH (18:00)
[2025-04-09] MEDS: DOCUSATE SOD 100 MG CAP PO ONE (18:00)
[2025-04-09] MEDS: ERGOCALCIFEROL 50,000 UNIT(1.25MG) CAP PO SCH (20:03)
[2025-04-09] MEDS: LACTULOSE 20Gm/30ML SOLN PO ONE (20:03)
--- NOTE | 2025-04-09 21:49 | DVHPN2 ---
Progress Note Date Seen: Apr 09, 2025 Medical Necessity Reason Pt with a Central, PICC or Fol: Yes Subjective Patient reports: Other (Patient has been downgraded from ICU) Review of Systems: Deferred Objective vital signs Vital Sign Date Time Temp Pulse Resp B/P (MAP) Pulse Ox O2 Delivery O2 Flow Rate FiO2 04/09/25 20:59 74 16 150/72 99 2.0 04/09/25 18:54 Nasal Cannula 04/09/25 18:54 32 04/09/25 17:00 98.2 98.2 Total Intake and Output 04/08/25 04/08/25 04/09/25 15:00 23:00 07:00 Intake Total 500 ml 240 ml Output Total 0 ml Balance 500 ml 240 ml medications Current Medications Medications Dose Ordered Sig/Margarito Route Start Time Stop Time Status Last Admin Dose Admin Piperacillin Sod/ Tazobactam Sod 100 ml @ 25 mls/hr Q12HR IV 04/05/25 22:00 04/09/25 10:14 25 MLS/HR Aspirin 81 mg DAILY PO 04/05/25 17:40 04/09/25 10:15 81 MG Atorvastatin Calcium 40 mg HS PO 04/05/25 22:00 04/08/25 21:21 40 MG Morphine Sulfate 2 mg Q30MP PRN IV 04/05/25 17:30 Acetaminophen 650 mg Q6HP PRN PO 04/05/25 17:30 Nitroglycerin 0.4 mg Q5MINP PRN SL 04/05/25 17:30 Ondansetron HCl 4 mg Q4HP PRN IV 04/05/25 17:30 04/08/25 12:36 4 MG Enoxaparin Sodium 30 mg DAILY SC 04/06/25 10:00 04/09/25 10:16 30 MG Multivit/Ca Carb/ B Cmplx/FA/Prenat 1 tab DAILY PO 04/06/25 10:00 04/09/25 10:15 1 TAB Clopidogrel Bisulfate 75 mg DAILY PO 04/06/25 10:00 04/09/25 10:15 75 MG Quetiapine Fumarate 100 mg DAILY PO 04/06/25 10:00 04/09/25 10:14 100 MG Patient Own Medication 3 cap HS PO 04/05/25 22:00 Levothyroxine Sodium 200 mcg QAM@0600 PO 04/06/25 06:00 04/09/25 05:13 200 MCG Sevelamer HCl 1,600 mg TIDWM PO 04/06/25 08:00 04/09/25 17:54 1,600 MG Hydromorphone HCl 0.5 mg Q4HPRN PRN IV 04/06/25 01:15 04/09/25 20:37 0.5 MG Pantoprazole Sodium 40 mg DAILY@0600 PO 04/07/25 06:00 04/09/25 05:13 40 MG Albuterol 2.5 mg Q6HPRN PRN NEB 04/06/25 10:30 04/09/25 18:52 2.5 MG Carisoprodol 350 mg TID PO 04/06/25 12:00 04/09/25 14:41 350 MG Mupirocin 1 applic BID EACHNOSTRI 04/06/25 22:00 04/11/25 21:59 04/08/25 21:22 1 APPLIC Bisacodyl 10 mg DAILYP PRN [place] 04/06/25 16:45 04/06/25 16:55 10 MG Carvedilol 12.5 mg Q12HR PO 04/08/25 22:00 04/09/25 10:15 12.5 MG Docusate Sodium 100 mg BID PRN PO 04/09/25 16:45 04/09/25 17:53 100 MG Ketorolac Tromethamine 15 mg Q6HPRN IV 04/09/25 18:00 04/10/25 18:44 Hold Ergocalciferol 50,000 unit Q7D PO 04/09/25 18:30 04/09/25 20:03 50,000 UNIT Examination: GENERAL:Abnormal, LUNGS:Abnormal, MSK:Abnormal, NEURO:Normal laboratory and microbiology Laboratory Tests 04/09/25 05:01 Test 04/09/25 05:01 Range/Units Serum Glucose 90 74-106 mg/dL Microbiology Date/Time Source Procedure Growth Status 04/05/25 23:15 Nose MRSA Screen - Final Methicillin Resistant S.aureus Complete 04/05/25 11:30 Blood Blood Culture - Preliminary NO GROWTH AFTER 72 HOURS OF INCUBATION. Resulted Problem List/Assessment/Plan Problem List/Assessment/Plan 1) ESRD on dialysis 2) working diagnosis of possible septic shock - prelim report of blood cultures are negative 3) chest pain 4) anemia secondary to CKD five 5) paraplegia recs HD tomorrow bp better Plan discussed with: Other Dietary Evaluation Review Recommendations by RD: Protein Supplementation Comments: 1) Add renal restriction to cardiac diet 2) Initiate Nepro qd 3) Encourage optimal PO intake 4) Follow-up with cardiology, pulmonology, and nephrology 5) Continue to monitor I&O, labs, and skin integrity Expected Outcomes/Goals: 1) appetite and labs to improve 2) wound to improve 3) f/u in 3-5 days MALVIN SEAY MD Apr 09, 2025 21:49
--- NOTE | 2025-04-09 23:46 | DVHPN2 ---
Progress Note - Dictate Date Seen: Apr 09, 2025 Medical Necessity Reason Pt with a Central, PICC or Fol: Yes Subjective Patient was seen and evaluated in follow up. Patient was downgraded to tele bed. Patients left hand swelling is improving. Patient reports constipation. HGB 7.7, HCT 23.4, BUN 30, Slip Dumper 3.28. RA factor is pending. Telemetry reviewed. vital signs Vital Sign Date Time Temp Pulse Resp B/P (MAP) Pulse Ox O2 Delivery O2 Flow Rate FiO2 04/09/25 21:46 95 206/118 04/09/25 21:00 97.2 16 95 97.2 04/09/25 20:59 2.0 04/09/25 18:54 Nasal Cannula 04/09/25 18:54 32 Total Intake and Output 04/08/25 04/08/25 04/09/25 15:00 23:00 07:00 Intake Total 500 ml 240 ml Output Total 0 ml Balance 500 ml 240 ml medications Current Medications Medications Dose Ordered Sig/Margarito Route Start Time Stop Time Status Last Admin Dose Admin Piperacillin Sod/ Tazobactam Sod 100 ml @ 25 mls/hr Q12HR IV 04/05/25 22:00 04/09/25 21:45 25 MLS/HR Aspirin 81 mg DAILY PO 04/05/25 17:40 04/09/25 10:15 81 MG Atorvastatin Calcium 40 mg HS PO 04/05/25 22:00 04/09/25 21:46 40 MG Morphine Sulfate 2 mg Q30MP PRN IV 04/05/25 17:30 Acetaminophen 650 mg Q6HP PRN PO 04/05/25 17:30 Nitroglycerin 0.4 mg Q5MINP PRN SL 04/05/25 17:30 Ondansetron HCl 4 mg Q4HP PRN IV 04/05/25 17:30 04/08/25 12:36 4 MG Enoxaparin Sodium 30 mg DAILY SC 04/06/25 10:00 04/09/25 10:16 30 MG Multivit/Ca Carb/ B Cmplx/FA/Prenat 1 tab DAILY PO 04/06/25 10:00 04/09/25 10:15 1 TAB Clopidogrel Bisulfate 75 mg DAILY PO 04/06/25 10:00 04/09/25 10:15 75 MG Quetiapine Fumarate 100 mg DAILY PO 04/06/25 10:00 04/09/25 10:14 100 MG Patient Own Medication 3 cap HS PO 04/05/25 22:00 Levothyroxine Sodium 200 mcg QAM@0600 PO 04/06/25 06:00 04/09/25 05:13 200 MCG Sevelamer HCl 1,600 mg TIDWM PO 04/06/25 08:00 04/09/25 17:54 1,600 MG Hydromorphone HCl 0.5 mg Q4HPRN PRN IV 04/06/25 01:15 04/09/25 20:37 0.5 MG Pantoprazole Sodium 40 mg DAILY@0600 PO 04/07/25 06:00 04/09/25 05:13 40 MG Albuterol 2.5 mg Q6HPRN PRN NEB 04/06/25 10:30 04/09/25 18:52 2.5 MG Carisoprodol 350 mg TID PO 04/06/25 12:00 04/09/25 21:46 350 MG Mupirocin 1 applic BID EACHNOSTRI 04/06/25 22:00 04/11/25 21:59 04/09/25 21:45 1 APPLIC Bisacodyl 10 mg DAILYP PRN [place] 04/06/25 16:45 04/06/25 16:55 10 MG Carvedilol 12.5 mg Q12HR PO 04/08/25 22:00 04/09/25 21:46 12.5 MG Docusate Sodium 100 mg BID PRN PO 04/09/25 16:45 04/09/25 17:53 100 MG Ketorolac Tromethamine 15 mg Q6HPRN IV 04/09/25 18:00 04/10/25 18:44 Hold Ergocalciferol 50,000 unit Q7D PO 04/09/25 18:30 04/09/25 20:03 50,000 UNIT objective GENERAL: Alert and oriented x 3. No acute distress. Paraplegic. EYES: PERRL, EOMI. Anicteric. HENT: Moist mucous membranes. LUNGS: Clear to auscultation bilaterally. CARDIOVASCULAR: Regular rate and rhythm. ABDOMEN: Soft, nontender and nondistended. EXTREMITIES: No edema. NEUROLOGIC: No focal neurological deficits. SKIN: Wounds (Decubitus). laboratory and microbiology Laboratory Tests 04/09/25 05:01 Test 04/09/25 05:01 Range/Units Serum Glucose 90 74-106 mg/dL Problem List NSTEMI likely type 2. Anemia likely due to chronic renal failure. Cardiomegaly. Probable pneumonia. Elevated ALP. Hyponatremia. Hyperkalemia. Thrombocytopenia. Acute on chronic renal failure on dialysis (M/W/F). Acute hypoxic respiratory failure on supportive oxygen. 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 History of chronic fracture of the right inferior pubic ramus. History of paraplegia. History of CAD, patient denies and claims she does not have any stents in her heart. History of hypertension. History of COPD. History of CHF. History of bed-bound due to back surgery in 2018 for cyst removal. History of NC. History of bipolar disease. History of ventral umbilical hernia. History of tonsillectomy. History of hemorrhoids. History of I&D for decubitus ulcer. History of tobacco use. Assessment/Plan Continued all current supportive medical care. Aspirin, Plavix. DVT and GI prophylactics. Dilaudid for pain management. IV antibiotics as ordered. Additional plan as per the hospital course. Dietary Evaluation Review Recommendations by RD: Protein Supplementation Comments: 1) Add renal restriction to cardiac diet 2) Initiate Nepro qd 3) Encourage optimal PO intake 4) Follow-up with cardiology, pulmonology, and nephrology 5) Continue to monitor I&O, labs, and skin integrity Expected Outcomes/Goals: 1) appetite and labs to improve 2) wound to improve 3) f/u in 3-5 days Plan discussed with: Patient WENDY COREAS MD Apr 09, 2025 23:46
[2025-04-10] VITALS (11 sets, daily range): BP systolic 140–199; BP diastolic 84–124; PULSE 93–114; RESP 13–18; TEMP 97–98.2; O2SAT 86–100
--- NOTE | 2025-04-10 03:23 | DVH ---
Procedure: CT CHEST WITHOUT CONTRAST Reason for study/Clinical History: Rule out pneumonia Comparison Study: XY CHEST PORTABLE on DOS: 04/09/25, XY CHEST PORTABLE on DOS: 04/09/25, XY CHEST PORT ABLE on DOS: 04/07/25, XY CHEST PORTABLE on DOS: 04/05/25, XY CHEST PORTABLE on DOS: 12/07/24 TECHNIQUE: Multidetector CT of the chest was performed from the lung apices to the upper abdomen with out the use of intravenous contract. Axial, coronal and sagittal multiplanar reformats were performed . Radiation Dose Information: CT Dose: CTDI volume is 19.61 mGy. Dose-length product is 631.06 mGy*cm The dose indicators for CT are the volume Computed Tomography (CT) Dose Index (CTDIvol) and the Dose Length Product (DLP), and are measured in units of mGy and mGy-cm, respectively. These indicators are not patient dose, but values generated from the CT scanner acquisition factors. The report includes radiation exposure data for exposures received during this examination. FINDINGS: Lower neck: Unremarkable. Lungs: Trace bilateral pleural effusions with extensive adjacent atelectasis of the posterior bilater al lower lobes. Lateral right mid lung scarring and atelectasis. No definite focal consolidation. No evidence of pneumothorax. Heart/Vascular Structures: Cardiomegaly. No pericardial effusion. Ascending thoracic aorta is moderat pippa dilated, measuring 3.8 cm. Atherosclerotic vascular calcifications within the Aorta and coronary vasculature. Lymph Nodes: No adenopathy Musculoskeletal: Multifocal lytic lesions throughout the visualized axial and appendicular skeleton i nvolving the vertebral bodies of the thoracic spine, bilateral humeral heads and bilateral ribs. Post surgical changes status post T6-T11 transforaminal lumbar interbody fusion with corpectomy at T9. Soft tissues: Normal. Upper abdomen: Marked bilateral renal atrophy and cortical scarring / thinning. Limited portions of t he upper abdomen are otherwise unremarkable status post cholecystectomy. IMPRESSION: 1. Trace bilateral pleural effusions with extensive adjacent atelectasis of the posterior bilateral l ower lobes. 2. Cardiomegaly. 3. Ascending thoracic aorta is moderately dilated, measuring 3.8 cm. 4. Multifocal lytic lesions throughout the visualized axial and appendicular skeleton involving the v ertebral bodies of the thoracic spine, bilateral humeral heads and bilateral concerning for metastati c disease. 5. Marked bilateral renal atrophy and cortical scarring / thinning. Radiation optimization: All CT scans at this facility use at least one of these dose optimization kvng hniques: automated exposure control mA and/or kV adjustment per patient size (includes targeted exam s where dose is matched to clinical indication) or iterative reconstruction.
[2025-04-10 05:19] LABS: Hematocrit 30.5 % (36.0-46.0); Hemoglobin 9.9 g/dL (12.2-16.2); Mean Corpuscular Hemoglobin 31.4 pg (28.0-32.0); Mean Corpuscular Volume 96.6 fL (80.0-100.0); Nucleated Red Blood Cells % 0.1 %
[2025-04-10 05:30] LABS: Anion Gap 12 (5-15); Carbon Dioxide 28 mmol/L (20-31)
[2025-04-10 05:31] LABS: Calcium 9.5 mg/dL (8.7-10.4)
[2025-04-10 05:33] LABS: Chloride 96 mmol/L (98-107); Sodium 136 mmol/L (136-145)
[2025-04-10 05:34] LABS: Potassium 5.8 mmol/L (3.5-5.1)
[2025-04-10 05:36] LABS: BUN/Creatinine Ratio 9.4 (10.0-20.0); Glucose 104 mg/dL (74-106)
[2025-04-10 05:38] LABS: Blood Urea Nitrogen 37 mg/dL (9-23)
[2025-04-10] MEDS: SODIUM CHL 0.9% 1000 ML BAG XX ONE (07:00)
[2025-04-10] MEDS: BISACODYL 10 MG RECT SUPP PR ONE (10:00)
[2025-04-10] MEDS ORDERED: PHEN0.2512 PR (12:50)
[2025-04-10 13:20] LABS: Chloride 99 mmol/L (98-107); Potassium 4.3 mmol/L (3.5-5.1); Sodium 141 mmol/L (136-145)
[2025-04-10 13:21] LABS: Anion Gap 14 (5-15); Calcium 9.2 mg/dL (8.7-10.4); Carbon Dioxide 28 mmol/L (20-31)
[2025-04-10 13:26] LABS: BUN/Creatinine Ratio 8.2 (10.0-20.0); Blood Urea Nitrogen 22 mg/dL (9-23); Glucose 104 mg/dL (74-106)
[2025-04-10] MEDS: MORPHINE SULF 15mg ER tab PO ONE (16:31)
--- NOTE | 2025-04-10 16:35 | DVHPNRES ---
Progress Note Date Seen: Apr 10, 2025 Resident Creating Document: CHANDNI BREWSTER RESIDENT Medical Necessity Reason Pt with a Central, PICC or Fol: Yes (TUNNEL CATHETER) Subjective Review of Systems This is a 70-year-old female with past medical history of paraplegia since 2018 after surgery spine, CAD with no stent recent angiogram 3 months ago in [facility] reported normal, HTN, COPD on 2 L home oxygen, CHF with preserved ejection fraction, bed-bound since surgery 2017, bipolar disorder ESRD on hemodialysis Tuesday umbilical hernia, tonsillectomy, hemorrhoids, I and D on her decubitus ulcer sacral region present to ER with complaint of chest pain for 2 weeks which is getting worse before arriving to the hospital. Esterase pain was 9/10 intensity, sharp, intermitted, no aggravating or relieving factor. History of broken right hip 1 year ago and surgery done in [facility] but no prosthesis. Admission patient become hemodynamically unstable and started pressor. Off pressor on 04/07/2025. Past medical history: CAD, CHF, HTN, [place], COPD on 2 L home oxygen, bipolar disorder, ESRD, ventral umbilical hernia, hemorrhoid Past Surgical history: Tonsillectomy Family history cancer-mother with pacemaker and breast cancer, father with colon cancer Social history: X 0 smoker, quit 1 year ago, no ETOH use. Denies any illicit drug Family history lives with family, having caregivers 04/08/2025: Patient seen and evaluated in bedside. Patient complained left upper extremity pain associated with chest pain. No pain on rest but aggravated on movement. Labs for rheumatoid factor, uric acid level we will follow. Physical therapy during discharge. 04/09/2025: Patient seen and evaluated in bedside today. Patient left hand swelling is improving but chest pain on deep palpation. Colace and lactulose ordered for constipation, monitor for bowel movement. Patient currently on oxygen via nasal cannula. 04/10: Patient seen and evaluated in bedside today. Patient chest pain on palpation sternal area. Ordered for bone scan due to CT showed lytic bone lesion. Patient will be benefitted per physical therapy. Objective vital signs Vital Sign Date Time Temp Pulse Resp B/P (MAP) Pulse Ox O2 Delivery O2 Flow Rate FiO2 04/10/25 13:38 102 16 165/94 04/10/25 12:37 98.1 93 98.1 04/10/25 08:00 Nasal Cannula* 3 32 Total Intake and Output 04/09/25 04/09/25 04/10/25 15:00 23:00 07:00 Intake Total 100 ml 360 ml 50 ml Balance 100 ml 360 ml 50 ml medications Current Medications Medications Dose Ordered Sig/Margarito Route Start Time Stop Time Status Last Admin Dose Admin Piperacillin Sod/ Tazobactam Sod 100 ml @ 25 mls/hr Q12HR IV 04/05/25 22:00 04/10/25 09:24 25 MLS/HR Aspirin 81 mg DAILY PO 04/05/25 17:40 04/10/25 09:22 81 MG Atorvastatin Calcium 40 mg HS PO 04/05/25 22:00 04/09/25 21:46 40 MG Morphine Sulfate 2 mg Q30MP PRN IV 04/05/25 17:30 Acetaminophen 650 mg Q6HP PRN PO 04/05/25 17:30 Nitroglycerin 0.4 mg Q5MINP PRN SL 04/05/25 17:30 Ondansetron HCl 4 mg Q4HP PRN IV 04/05/25 17:30 04/10/25 09:06 4 MG Enoxaparin Sodium 30 mg DAILY SC 04/06/25 10:00 04/10/25 09:24 30 MG Multivit/Ca Carb/ B Cmplx/FA/Prenat 1 tab DAILY PO 04/06/25 10:00 04/10/25 09:22 1 TAB Clopidogrel Bisulfate 75 mg DAILY PO 04/06/25 10:00 04/10/25 09:21 75 MG Quetiapine Fumarate 100 mg DAILY PO 04/06/25 10:00 04/10/25 09:21 100 MG Patient Own Medication 3 cap HS PO 04/05/25 22:00 Levothyroxine Sodium 200 mcg QAM@0600 PO 04/06/25 06:00 04/10/25 06:55 200 MCG Sevelamer HCl 1,600 mg TIDWM PO 04/06/25 08:00 04/09/25 17:54 1,600 MG Hydromorphone HCl 0.5 mg Q4HPRN PRN IV 04/06/25 01:15 04/10/25 13:08 0.5 MG Pantoprazole Sodium 40 mg DAILY@0600 PO 04/07/25 06:00 04/10/25 06:55 40 MG Albuterol 2.5 mg Q6HPRN PRN NEB 04/06/25 10:30 04/09/25 18:52 2.5 MG Carisoprodol 350 mg TID PO 04/06/25 12:00 04/10/25 13:08 350 MG Mupirocin 1 applic BID EACHNOSTRI 04/06/25 22:00 04/11/25 21:59 04/10/25 09:48 1 APPLIC Bisacodyl 10 mg DAILYP PRN KS 04/06/25 16:45 04/06/25 16:55 10 MG Carvedilol 12.5 mg Q12HR PO 04/08/25 22:00 04/10/25 09:22 12.5 MG Docusate Sodium 100 mg BID PRN PO 04/09/25 16:45 04/10/25 13:09 100 MG Ketorolac Tromethamine 15 mg Q6HPRN IV 04/09/25 18:00 04/10/25 18:44 Hold Ergocalciferol 50,000 unit Q7D PO 04/09/25 18:30 04/09/25 20:03 50,000 UNIT Nifedipine 90 mg DAILY PO 04/11/25 10:00 Hydralazine HCl 25 mg Q8HR PO 04/10/25 14:00 04/10/25 13:08 25 MG Patient Own Medication 1 BID [place] 04/10/25 22:00 Morphine Sulfate 15 mg Q12HR PO 04/10/25 22:00 Examination Constitutional: Patient lying on bed. On nasal cannula 2 L oxygen ENT: No: Ear pain, Ear discharge, Nose pain, Nose discharge, Nose congestion, Mouth pain Respiratory: Bilateral equal entry at both lung, chest tender on deep palpation Cardiovascular: No: Chest Pain, Palpitations, Orthopnea, Paroxysmal Noc. Dyspnea, Edema, Gastrointestinal: Tender on deep palpation left lower quadrant, bowel sounds present Genitourinary: Suprapubic area and renal angle non tender on deep palpation Musculoskeletal: Gait instability, bed-bound, right hip tender, sternal area on deep palpation Skin: tunnel catheter on left side of the chest Neurological: Paraplegia, decreased sensation lower extremity, left upper extremity pain on deep palpation laboratory and microbiology Laboratory Tests 04/10/25 12:47 04/10/25 04:58 Test 04/10/25 12:47 Range/Units Serum Glucose 104 74-106 mg/dL Microbiology Date/Time Source Procedure Growth Status 04/05/25 23:15 Nose MRSA Screen - Final Methicillin Resistant S.aureus Complete 04/05/25 11:30 Blood Blood Culture - Final NO GROWTH AFTER 5 DAYS OF INCUBATION. Complete Problem List/Assessment/Plan Problem List/Assessment/Plan NEURO: Paraplegia since 2018 after surgery in the spine * Not on any IV sedative * Bed-bound since 2018 * Plan: Physical therapy , fall precaution CARDIOVASCULAR: Hypotensive shock requiring pressor support Cardiomegaly. NSTEMI likely type 2 secondary to demand ischemia History of CAD, patient denies and claims she does not have any stents in her heart. History of CHF, [place] Ascending thoracic aorta is moderately dilated, measuring 3.8 cm. Dyslipidemia * Trop 80s to 90s * EKG showed no ST-T changes * Septic Shock secondary to pneumonia * Likely heart failure with preserved ejection fraction * Echo on 04/06/2025 shows LVEF 65%, moderately dilated right ventricle and right atrium * Cardiology: Elevated Troponin - trending up, likely demand ischemia in setting of CPR, septic shock. EKG-no ST and T-wave abnormalities. Recommend conservative medical management. * Plan Continue atorvastatin, aspirin, clopidogrel, nitroglycerin sublingual, nifedipine, hydralazine, carvedilol. PULMONARY: Acute hypoxic respiratory failure due to COPD exacerbation/pneumonia Bilateral pleural effusions Possible aspiration pneumonia Possible gram positive/Gram-negative pneumonia History of COPD with 2L home O2 History of tobacco use * CT chest on 04/09/2025: Trace bilateral pleural effusions with extensive adjacent atelectasis of the posterior bilateral lower lobes. * Plan: IV antibiotics Zosyn, Continue breathing treatment with ipratropium and albuterol GASTROINTESTINAL: History of GERD History of ventral umbilical hernia. History of tonsillectomy. History of hemorrhoids. Sebaceous cyst abdominal wall Elevated ALP Chronic constipation likely due to bed-bound US soft tissue: 2x1x1 cm subcutaneous cystic mass which could be represent a sebaceous cyst. * Plan: :Continue Protonix , lactulose . GENITOURINARY: CKD on HD HD on Tuesday Nephrology consult appreciated Hyponatremia Hyperkalemia * CT on 04/09/2025: Marked bilateral renal atrophy and cortical scarring / thinning. * plan:Continue savelamer, bmp, hemodialysis. HEMATOLOGY: Questionable metastatic disease- bone scan Anemia of chronic disease secondary to renal failure * CT chest on 04/09/2025: Multifocal lytic lesions throughout the visualized axial and appendicular skeleton involving the vertebral bodies of the thoracic spine, bilateral humeral heads and bilateral concerning for metastatic disease. * Ferritin 831.3, iron 83, TIBC is 162, % saturation 26.5 on admission * Thrombocytopenia * Plan:cbc, 1 unit of PRBC transfusion on 04/10/2025. METABOLIC: Hypothyroidism Vitamin D deficiency THS 8.06, free T4 0.49 Lactic acid 1.0 Hemoglobin A1c 4.5 * Plan:Continue levothyroxine, vitamin D3 INFECTIOUS DISEASE: History of aspiration pneumonia Possible aspiration pneumonia Positive MRSA screen, mupirocin * Blood culture x2 negative * CRP 9.70 * plan:Continue Zosyn. 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 History of chronic fracture of the right inferior pubic ramus. History of paraplegia. Gait instability Lytic bony lesion Questionable metastatic disease * CT chest on 04/09/2025: Multifocal lytic lesions involving the vertebral bodies, bilateral humeral heads concerning for metastatic disease. * Patient bed-bound since then * Uric acid level 4.1 * Rheumatoid factor<10 * Plan to continue pain management with morphine ER, order bone scan. PSYCHIATRIC History of bipolar disorder Anxiety disorder * Plan continue alprazolam and quetiapine History of sacral ulcer Sacral area healing scar tissue with no active discharge DIET: Renal DVT prophylax: Lovenox GI prophylaxis: Protonix Bowel regimen: Lactulose Code status: Full code. LINES/DRAINS/ACCESS: IV access: Left-sided tunneled catheter Drips: s/p Levophed, currently not on any drips DISPOSITION: Telemetry Patient's status discussed with patient daughter ,Maryam-daughter over the phone, nurse. More than 29 minute spent with patient. Case discussed with Dr. Gill Plan discussed with: Patient, Daughter (Maryam), Other (Nurse) My Orders My Orders Orders - CHANDNI BREWSTER RESIDENT Procedure Category Date Status Time Docusate Sodium PHA 04/09/25 In Process Capsule (Colace 16:45 Ketorolac Injection PHA 04/09/25 In Process (Toradol Injection) 18:[address] 9/30/25 Resulted 17:48 Clarification Of ORDERS 04/09/25 Transmitted Order: 18:09 Ergocalciferol PHA 04/09/25 In Process (Vitamin D 50,000 18:30 Pt Request For Service PT 04/10/25 Logged 09:56 Nifedipine Er PHA 04/11/25 In Process (Procardia Xl 10:00 Hydralazine Hcl PHA 04/10/25 In Process Tablet (Apresoline 14:00 Patients Own PHA 04/10/25 In Process Medication 22:00 Pt Request For Service PT 04/10/25 Logged 16:12 Dietary Evaluation Review Recommendations by RD: Protein Supplementation Comments: 1) Add renal restriction to cardiac diet 2) Initiate Nepro qd 3) Encourage optimal PO intake 4) Follow-up with cardiology, pulmonology, and nephrology 5) Continue to monitor I&O, labs, and skin integrity Expected Outcomes/Goals: 1) appetite and labs to improve 2) wound to improve 3) f/u in 3-5 days Date of Service: Apr 10, 2025 Billing Provider: LUANNE GILL MD Common Visit Codes: 07543-IUGHOLVDOQ INP/OBS CARE(HIGH) Secondary Visit Codes: 61410-[id number] CARE PLAN 30 MINUTES CHANDNI BREWSTER RESIDENT Apr 10, 2025 16:34 LUANNE GILL MD Apr 11, 2025 13:59
--- NOTE | 2025-04-10 17:07 | DVHPN2 ---
Progress Note Date Seen: Apr 10, 2025 Medical Necessity Reason Pt with a Central, PICC or Fol: Yes (TUNNEL CATHETER) Subjective Patient reports: No new complaints Review of Systems: Deferred Objective vital signs Vital Sign Date Time Temp Pulse Resp B/P (MAP) Pulse Ox O2 Delivery O2 Flow Rate FiO2 04/10/25 16:31 98.2 107 13 166/96 (119) 100 98.2 04/10/25 08:00 Nasal Cannula* 3 32 Total Intake and Output 04/09/25 04/09/25 04/10/25 15:00 23:00 07:00 Intake Total 100 ml 360 ml 50 ml Balance 100 ml 360 ml 50 ml medications Current Medications Medications Dose Ordered Sig/Margarito Route Start Time Stop Time Status Last Admin Dose Admin Piperacillin Sod/ Tazobactam Sod 100 ml @ 25 mls/hr Q12HR IV 04/05/25 22:00 04/10/25 09:24 25 MLS/HR Aspirin 81 mg DAILY PO 04/05/25 17:40 04/10/25 09:22 81 MG Atorvastatin Calcium 40 mg HS PO 04/05/25 22:00 04/09/25 21:46 40 MG Morphine Sulfate 2 mg Q30MP PRN IV 04/05/25 17:30 Acetaminophen 650 mg Q6HP PRN PO 04/05/25 17:30 Nitroglycerin 0.4 mg Q5MINP PRN SL 04/05/25 17:30 Ondansetron HCl 4 mg Q4HP PRN IV 04/05/25 17:30 04/10/25 09:06 4 MG Enoxaparin Sodium 30 mg DAILY SC 04/06/25 10:00 04/10/25 09:24 30 MG Multivit/Ca Carb/ B Cmplx/FA/Prenat 1 tab DAILY PO 04/06/25 10:00 04/10/25 09:22 1 TAB Clopidogrel Bisulfate 75 mg DAILY PO 04/06/25 10:00 04/10/25 09:21 75 MG Quetiapine Fumarate 100 mg DAILY PO 04/06/25 10:00 04/10/25 09:21 100 MG Patient Own Medication 3 cap HS PO 04/05/25 22:00 Levothyroxine Sodium 200 mcg QAM@0600 PO 04/06/25 06:00 04/10/25 06:55 200 MCG Sevelamer HCl 1,600 mg TIDWM PO 04/06/25 08:00 04/09/25 17:54 1,600 MG Hydromorphone HCl 0.5 mg Q4HPRN PRN IV 04/06/25 01:15 04/10/25 13:08 0.5 MG Pantoprazole Sodium 40 mg DAILY@0600 PO 04/07/25 06:00 04/10/25 06:55 40 MG Albuterol 2.5 mg Q6HPRN PRN NEB 04/06/25 10:30 04/09/25 18:52 2.5 MG Carisoprodol 350 mg TID PO 04/06/25 12:00 04/10/25 13:08 350 MG Mupirocin 1 applic BID EACHNOSTRI 04/06/25 22:00 04/11/25 21:59 04/10/25 09:48 1 APPLIC Carvedilol 12.5 mg Q12HR PO 04/08/25 22:00 04/10/25 09:22 12.5 MG Docusate Sodium 100 mg BID PRN PO 04/09/25 16:45 04/10/25 13:09 100 MG Ketorolac Tromethamine 15 mg Q6HPRN IV 04/09/25 18:00 04/10/25 18:44 Hold Ergocalciferol 50,000 unit Q7D PO 04/09/25 18:30 04/09/25 20:03 50,000 UNIT Nifedipine 90 mg DAILY PO 04/11/25 10:00 Hydralazine HCl 25 mg Q8HR PO 04/10/25 14:00 04/10/25 13:08 25 MG Patient Own Medication 1 BID AK 04/10/25 22:00 Morphine Sulfate 15 mg Q12HR PO 04/10/25 22:00 Lactulose 30 ml BID PO 04/10/25 22:00 Examination: GENERAL:Normal, LUNGS:Normal, MSK:Abnormal, NEURO:Abnormal laboratory and microbiology Laboratory Tests 04/10/25 12:47 04/10/25 04:58 Test 04/10/25 12:47 Range/Units Serum Glucose 104 74-106 mg/dL Microbiology Date/Time Source Procedure Growth Status 04/05/25 23:15 Nose MRSA Screen - Final Methicillin Resistant S.aureus Complete 04/05/25 11:30 Blood Blood Culture - Final NO GROWTH AFTER 5 DAYS OF INCUBATION. Complete Problem List/Assessment/Plan Problem List/Assessment/Plan 1) ESRD on dialysis 2) working diagnosis of possible septic shock - prelim report of blood cultures are negative 3) chest pain 4) anemia secondary to CKD five 5) paraplegia recs HD today geraldine with hd Plan discussed with: Patient My Orders My Orders Orders - MALVIN SEAY MD Procedure Category Date Status Time Hemodialysis Orders ORDERS 04/10/25 Transmitted 06:51 Dialysis Nursing JODI 04/10/25 In Process Message 06:51 Document Fluid Input JODI 04/10/25 In Process And Outpu 06:51 Epoetin Checo-Epbx PHA 04/10/25 In Process (Retacrit) 21:00 Dietary Evaluation Review Recommendations by RD: Protein Supplementation Comments: 1) Add renal restriction to cardiac diet 2) Initiate Nepro qd 3) Encourage optimal PO intake 4) Follow-up with cardiology, pulmonology, and nephrology 5) Continue to monitor I&O, labs, and skin integrity Expected Outcomes/Goals: 1) appetite and labs to improve 2) wound to improve 3) f/u in 3-5 days MALVIN SEAY MD Apr 10, 2025 17:07
[2025-04-10] MEDS: EPOETIN ALFA-EPBX 10,000 UNIT/1ML VIAL SC ONE (21:05)
[2025-04-10] MEDS: MORPHINE SULF 15mg ER tab PO SCH (21:13)
--- NOTE | 2025-04-10 23:31 | DVHPN2 ---
Progress Note - Dictate Date Seen: Apr 10, 2025 Medical Necessity Reason Pt with a Central, PICC or Fol: Yes (TUNNEL CATHETER) Subjective Patient was seen and evaluated in follow up. Patient is complaining of substernal chest pain and heart palpitations. HGB 9.9, HCT 30.5, K 5.8, BUN 37,PENSIONS [employer] 2.68. RA factor < 10. CT Chest shows trace bilateral pleural effusions with extensive adjacent atelectasis of the posterior bilateral lower lobes, cardiomegaly, ascending thoracic aorta is moderately dilated, measuring 3.8 cm, multifocal lytic lesions throughout the visualized axial and appendicular skeleton involving the vertebral bodies of the thoracic spine, bilateral humeral heads and bilateral concerning for metastatic disease, marked bilateral renal atrophy and cortical scarring / thinning. Telemetry reviewed. vital signs Vital Sign Date Time Temp Pulse Resp B/P (MAP) Pulse Ox O2 Delivery O2 Flow Rate FiO2 04/10/25 16:31 98.2 107 13 166/96 (119) 100 98.2 04/10/25 08:00 Nasal Cannula* 3 32 Total Intake and Output 04/09/25 04/09/25 04/10/25 15:00 23:00 07:00 Intake Total 100 ml 360 ml 50 ml Balance 100 ml 360 ml 50 ml medications Current Medications Medications Dose Ordered Sig/Margarito Route Start Time Stop Time Status Last Admin Dose Admin Piperacillin Sod/ Tazobactam Sod 100 ml @ 25 mls/hr Q12HR IV 04/05/25 22:00 04/10/25 09:24 25 MLS/HR Aspirin 81 mg DAILY PO 04/05/25 17:40 04/10/25 09:22 81 MG Atorvastatin Calcium 40 mg HS PO 04/05/25 22:00 04/09/25 21:46 40 MG Morphine Sulfate 2 mg Q30MP PRN IV 04/05/25 17:30 Acetaminophen 650 mg Q6HP PRN PO 04/05/25 17:30 Nitroglycerin 0.4 mg Q5MINP PRN SL 04/05/25 17:30 Ondansetron HCl 4 mg Q4HP PRN IV 04/05/25 17:30 04/10/25 09:06 4 MG Enoxaparin Sodium 30 mg DAILY SC 04/06/25 10:00 04/10/25 09:24 30 MG Multivit/Ca Carb/ B Cmplx/FA/Prenat 1 tab DAILY PO 04/06/25 10:00 04/10/25 09:22 1 TAB Clopidogrel Bisulfate 75 mg DAILY PO 04/06/25 10:00 04/10/25 09:21 75 MG Quetiapine Fumarate 100 mg DAILY PO 04/06/25 10:00 04/10/25 09:21 100 MG Patient Own Medication 3 cap HS PO 04/05/25 22:00 Levothyroxine Sodium 200 mcg QAM@0600 PO 04/06/25 06:00 04/10/25 06:55 200 MCG Sevelamer HCl 1,600 mg TIDWM PO 04/06/25 08:00 04/09/25 17:54 1,600 MG Hydromorphone HCl 0.5 mg Q4HPRN PRN IV 04/06/25 01:15 04/10/25 13:08 0.5 MG Pantoprazole Sodium 40 mg DAILY@0600 PO 04/07/25 06:00 04/10/25 06:55 40 MG Albuterol 2.5 mg Q6HPRN PRN NEB 04/06/25 10:30 04/09/25 18:52 2.5 MG Carisoprodol 350 mg TID PO 04/06/25 12:00 04/10/25 13:08 350 MG Mupirocin 1 applic BID EACHNOSTRI 04/06/25 22:00 04/11/25 21:59 04/10/25 09:48 1 APPLIC Carvedilol 12.5 mg Q12HR PO 04/08/25 22:00 04/10/25 09:22 12.5 MG Docusate Sodium 100 mg BID PRN PO 04/09/25 16:45 04/10/25 13:09 100 MG Ketorolac Tromethamine 15 mg Q6HPRN IV 04/09/25 18:00 04/10/25 18:44 Hold Ergocalciferol 50,000 unit Q7D PO 04/09/25 18:30 04/09/25 20:03 50,000 UNIT Nifedipine 90 mg DAILY PO 04/11/25 10:00 Hydralazine HCl 25 mg Q8HR PO 04/10/25 14:00 04/10/25 13:08 25 MG Patient Own Medication 1 BID AL 04/10/25 22:00 Morphine Sulfate 15 mg Q12HR PO 04/10/25 22:00 Lactulose 30 ml BID PO 04/10/25 22:00 objective GENERAL: Alert and oriented x 3. No acute distress. Paraplegic. EYES: PERRL, EOMI. Anicteric. HENT: Moist mucous membranes. LUNGS: Clear to auscultation bilaterally. CARDIOVASCULAR: Regular rate and rhythm. ABDOMEN: Soft, nontender and nondistended. EXTREMITIES: No edema. NEUROLOGIC: No focal neurological deficits. SKIN: Wounds (Decubitus). laboratory and microbiology Laboratory Tests 04/10/25 12:47 04/10/25 04:58 Test 04/10/25 12:47 Range/Units Serum Glucose 104 74-106 mg/dL Problem List NSTEMI likely type 2. Anemia likely due to chronic renal failure. Cardiomegaly. Probable pneumonia. Elevated ALP. Hyponatremia. Hyperkalemia. Thrombocytopenia. Acute on chronic renal failure on dialysis (M/W/F). Acute hypoxic respiratory failure on supportive oxygen. 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 History of chronic fracture of the right inferior pubic ramus. History of paraplegia. History of CAD, patient denies and claims she does not have any stents in her heart. History of hypertension. History of COPD. History of CHF. History of bed-bound due to back surgery in 2018 for cyst removal. History of [place]. History of bipolar disease. History of ventral umbilical hernia. History of tonsillectomy. History of hemorrhoids. History of I&D for decubitus ulcer. History of tobacco use. Assessment/Plan Continued all current supportive medical care. Aspirin, Plavix. Coreg, Hydralazine. DVT and GI prophylactics. Dilaudid and Morphine for pain management. IV antibiotics as ordered. Additional plan as per the hospital course. Dietary Evaluation Review Recommendations by RD: Protein Supplementation Comments: 1) Add renal restriction to cardiac diet 2) Initiate Nepro qd 3) Encourage optimal PO intake 4) Follow-up with cardiology, pulmonology, and nephrology 5) Continue to monitor I&O, labs, and skin integrity Expected Outcomes/Goals: 1) appetite and labs to improve 2) wound to improve 3) f/u in 3-5 days Plan discussed with: Patient WENDY COREAS MD Apr 10, 2025 17:52
[2025-04-10] MEDS: LACTULOSE 20Gm/30ML SOLN PO SCH (23:55)
[2025-04-11] VITALS (12 sets, daily range): BP systolic 101–160; BP diastolic 54–90; PULSE 76–101; RESP 16–20; TEMP 97.7–99.1; O2SAT 94–98
[2025-04-11 07:36] LABS: Hematocrit 28.5 % (36.0-46.0); Hemoglobin 9.2 g/dL (12.2-16.2); Mean Corpuscular Hemoglobin 31.2 pg (28.0-32.0); Mean Corpuscular Volume 96.3 fL (80.0-100.0)
[2025-04-11 07:49] LABS: Anion Gap 12 (5-15); Carbon Dioxide 30 mmol/L (20-31); Potassium 4.5 mmol/L (3.5-5.1); Sodium 139 mmol/L (136-145)
[2025-04-11 07:51] LABS: Calcium 8.9 mg/dL (8.7-10.4)
[2025-04-11 07:56] LABS: BUN/Creatinine Ratio 7.9 (10.0-20.0); Glucose 82 mg/dL (74-106)
--- NOTE | 2025-04-11 07:56 | DVHPNRES ---
Progress Note Date Seen: Apr 11, 2025 Resident Creating Document: CHANDNI BREWSTER RESIDENT Medical Necessity Reason Pt with a Central, PICC or Fol: Yes (TUNNEL CATHETER) Subjective Review of Systems This is a 70-year-old female with past medical history of paraplegia since 2018 after surgery spine, CAD with no stent recent angiogram 3 months ago in [facility] reported normal, HTN, COPD on 2 L home oxygen, CHF with preserved ejection fraction, bed-bound since surgery 2017, bipolar disorder ESRD on hemodialysis Tuesday umbilical hernia, tonsillectomy, hemorrhoids, I and D on her decubitus ulcer sacral region present to ER with complaint of chest pain for 2 weeks which is getting worse before arriving to the hospital. Esterase pain was 9/10 intensity, sharp, intermitted, no aggravating or relieving factor. History of broken right hip 1 year ago and surgery done in [facility] but no prosthesis. Admission patient become hemodynamically unstable and started pressor. Off pressor on 04/07/2025. Past medical history: CAD, CHF, HTN, AL, COPD on 2 L home oxygen, bipolar disorder, ESRD, ventral umbilical hernia, hemorrhoid Past Surgical history: Tonsillectomy Family history cancer-mother with pacemaker and breast cancer, father with colon cancer Social history: X 0 smoker, quit 1 year ago, no ETOH use. Denies any illicit drug Family history lives with family, having caregivers 04/08/2025: Patient seen and evaluated in bedside. Patient complained left upper extremity pain associated with chest pain. No pain on rest but aggravated on movement. Labs for rheumatoid factor, uric acid level we will follow. Physical therapy during discharge. 04/09/2025: Patient seen and evaluated in bedside today. Patient left hand swelling is improving but chest pain on deep palpation. Colace and lactulose ordered for constipation, monitor for bowel movement. Patient currently on oxygen via nasal cannula. 04/10: Patient seen and evaluated in bedside today. Patient chest pain on palpation sternal area. Ordered for bone scan due to CT showed lytic bone lesion. Patient will be benefitted per physical therapy. 04/11: Patient seen and evaluated in bedside. Patient pain better in compared to yesterday switching morphine ER. Bone scan to rule out lytic lesion on CT chest ordered. Follow-up for bowel movement. Denies any fever, abdominal pain, headache. Objective vital signs Vital Sign Date Time Temp Pulse Resp B/P (MAP) Pulse Ox O2 Delivery O2 Flow Rate FiO2 04/11/25 07:07 98 Nasal Cannula 3.0 04/11/25 07:07 32 04/11/25 06:51 131/78 04/11/25 05:00 98.0 76 16 98.0 Total Intake and Output 04/10/25 04/10/25 04/11/25 15:00 23:00 07:00 Intake Total 100 ml 0 ml 340 ml Output Total 0 ml 0 ml Balance 100 ml 0 ml 340 ml medications Current Medications Medications Dose Ordered Sig/Margarito Route Start Time Stop Time Status Last Admin Dose Admin Piperacillin Sod/ Tazobactam Sod 100 ml @ 25 mls/hr Q12HR IV 04/05/25 22:00 04/10/25 21:16 25 MLS/HR Aspirin 81 mg DAILY PO 04/05/25 17:40 04/10/25 09:22 81 MG Atorvastatin Calcium 40 mg HS PO 04/05/25 22:00 04/10/25 21:11 40 MG Morphine Sulfate 2 mg Q30MP PRN IV 04/05/25 17:30 Acetaminophen 650 mg Q6HP PRN PO 04/05/25 17:30 Nitroglycerin 0.4 mg Q5MINP PRN SL 04/05/25 17:30 Ondansetron HCl 4 mg Q4HP PRN IV 04/05/25 17:30 04/10/25 23:45 4 MG Enoxaparin Sodium 30 mg DAILY SC 04/06/25 10:00 04/10/25 09:24 30 MG Multivit/Ca Carb/ B Cmplx/FA/Prenat 1 tab DAILY PO 04/06/25 10:00 04/10/25 09:22 1 TAB Clopidogrel Bisulfate 75 mg DAILY PO 04/06/25 10:00 04/10/25 09:21 75 MG Quetiapine Fumarate 100 mg DAILY PO 04/06/25 10:00 04/10/25 09:21 100 MG Patient Own Medication 3 cap HS PO 04/05/25 22:00 Levothyroxine Sodium 200 mcg QAM@0600 PO 04/06/25 06:00 04/11/25 06:51 200 MCG Sevelamer HCl 1,600 mg TIDWM PO 04/06/25 08:00 04/09/25 17:54 1,600 MG Hydromorphone HCl 0.5 mg Q4HPRN PRN IV 04/06/25 01:15 04/10/25 23:55 0.5 MG Pantoprazole Sodium 40 mg DAILY@0600 PO 04/07/25 06:00 04/11/25 06:51 40 MG Albuterol 2.5 mg Q6HPRN PRN NEB 04/06/25 10:30 04/10/25 19:43 2.5 MG Carisoprodol 350 mg TID PO 04/06/25 12:00 04/11/25 06:51 350 MG Mupirocin 1 applic BID EACHNOSTRI 04/06/25 22:00 04/11/25 21:59 04/10/25 09:48 1 APPLIC Carvedilol 12.5 mg Q12HR PO 04/08/25 22:00 04/10/25 21:12 12.5 MG Docusate Sodium 100 mg BID PRN PO 04/09/25 16:45 04/10/25 13:09 100 MG Ergocalciferol 50,000 unit Q7D PO 04/09/25 18:30 04/09/25 20:03 50,000 UNIT Nifedipine 90 mg DAILY PO 04/11/25 10:00 Hydralazine HCl 25 mg Q8HR PO 04/10/25 14:00 04/11/25 06:51 25 MG Patient Own Medication 1 BID AL 04/10/25 22:00 Morphine Sulfate 15 mg Q12HR PO 04/10/25 22:00 04/10/25 21:13 15 MG Lactulose 30 ml BID PO 04/10/25 22:00 04/10/25 23:55 30 ML Examination Constitutional: Patient lying on bed. On nasal cannula 2 L oxygen ENT: No: Ear pain, Ear discharge, Nose pain, Nose discharge Respiratory: Bilateral equal entry at both lung, chest tender on deep palpation Cardiovascular: No: Chest Pain, Palpitations, Orthopnea, Paroxysmal Noc. Dyspnea, Edema, Gastrointestinal: Tender on deep palpation left lower quadrant, bowel sounds present Genitourinary: Suprapubic area and renal angle non tender on deep palpation Musculoskeletal: bed-bound, right hip and sternal area tender on deep palpation Skin: tunnel catheter on left side of the chest Neurological: Paraplegia, decreased sensation lower extremity laboratory and microbiology Laboratory Tests 04/11/25 06:58 Test 04/11/25 06:58 Range/Units Serum Glucose Pending Microbiology Date/Time Source Procedure Growth Status 04/05/25 23:15 Nose MRSA Screen - Final Methicillin Resistant S.aureus Complete 04/05/25 11:30 Blood Blood Culture - Final NO GROWTH AFTER 5 DAYS OF INCUBATION. Complete Problem List/Assessment/Plan Problem List/Assessment/Plan This is a 70-year-old female with past medical history of paraplegia since 2018 after surgery spine, CAD with no stent recent angiogram 3 months ago in [facility] reported normal, HTN, COPD on 2 L home oxygen, CHF with preserved ejection fraction, bed-bound since surgery 2017, bipolar disorder ESRD on hemodialysis Tuesday, umbilical hernia, tonsillectomy, hemorrhoids, I and D on her decubitus ulcer sacral region present to ER with complaint of chest pain for 2 weeks which is getting worse before arrived to the hospital. Chest pain was 9/10 intensity, sharp, intermitted, no aggravating or relieving factor. History of broken right hip 1 year ago and surgery done in [facility] but no prosthesis. Admission patient become hemodynamically unstable and started pressor. Off pressor on 04/07/2025. NEURO: Paraplegia since 2018 after surgery in the spine * Not on any IV sedative * Bed-bound since 2018 * Plan: Physical therapy , fall precaution CARDIOVASCULAR: Hypotensive shock requiring pressor support Cardiomegaly. NSTEMI likely type 2 secondary to demand ischemia History of CAD, patient denies and claims she does not have any stents in her heart. History of CHF, AL Ascending thoracic aorta is moderately dilated, measuring 3.8 cm. Dyslipidemia * Trop 80s to 90s, on admission * EKG showed no ST-T changes * Septic Shock secondary to pneumonia * Likely heart failure with preserved ejection fraction * Echo on 04/06/2025 shows LVEF 65%, moderately dilated right ventricle and right atrium * Cardiology: Elevated Troponin - trending up, likely demand ischemia in setting of CPR, septic shock. EKG-no ST and T-wave abnormalities. Recommend conservative medical management. * Plan Continue atorvastatin, aspirin, clopidogrel, nitroglycerin sublingual, nifedipine, hydralazine, carvedilol, lisinopril. * Monitor blood pressure PULMONARY: Acute hypoxic respiratory failure due to COPD exacerbation/pneumonia Bilateral pleural effusions Possible aspiration pneumonia Possible gram positive/Gram-negative pneumonia History of COPD with 2L home O2 History of tobacco use * CT chest on 04/09/2025: Trace bilateral pleural effusions with extensive adjacent atelectasis of the posterior bilateral lower lobes. * Plan: IV antibiotics Zosyn, Continue breathing treatment with ipratropium and albuterol GASTROINTESTINAL: History of GERD History of ventral umbilical hernia. History of tonsillectomy. History of hemorrhoids. Sebaceous cyst abdominal wall Elevated ALP Chronic constipation likely due to bed-bound US soft tissue: 2x1x1 cm subcutaneous cystic mass which could be represent a sebaceous cyst. * Plan: :Continue Protonix , lactulose . GENITOURINARY: CKD on HD HD on Tuesday Nephrology consult appreciated Hyponatremia Hyperkalemia * CT on 04/09/2025: Marked bilateral renal atrophy and cortical scarring / thinning. * plan:Continue savelamer, hemodialysis. HEMATOLOGY: Questionable metastatic disease Anemia of chronic disease secondary to renal failure * CT chest on 04/09/2025: Multifocal lytic lesions throughout the visualized axial and appendicular skeleton involving the vertebral bodies of the thoracic spine, bilateral humeral heads and bilateral concerning for metastatic disease. * Ferritin 831.3, iron 83, TIBC is 162, % saturation 26.5 on admission * Thrombocytopenia * Plan:cbc, 1 unit of PRBC transfusion on 04/10/2025. METABOLIC: Hypothyroidism Vitamin D deficiency THS 8.06, free T4 0.49 Lactic acid 1.0 Hemoglobin A1c 4.5 * Plan:Continue levothyroxine, vitamin D3 INFECTIOUS DISEASE: History of aspiration pneumonia Possible aspiration pneumonia Positive MRSA screen, mupirocin SIRS (Leukopenia and tachycardia) * Blood culture x2 negative * CRP 9.70 * plan:Continue Zosyn. 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 History of chronic fracture of the right inferior pubic ramus. History of paraplegia. Gait instability Lytic bony lesion Questionable metastatic disease * CT chest on 04/09/2025: Multifocal lytic lesions involving the vertebral bodies, bilateral humeral heads concerning for metastatic disease. * Patient bed-bound since then * Uric acid level 4.1 * Rheumatoid factor<10 * Plan to continue pain management with morphine ER, bone scan. PSYCHIATRIC History of bipolar disorder Anxiety disorder * Plan continue alprazolam and quetiapine History of sacral ulcer Sacral area healing scar tissue with no active discharge or signs symptoms of inflammation. DIET: Renal DVT prophylax: Lovenox GI prophylaxis: Protonix Bowel regimen: Lactulose as needed Code status: Full code. LINES/DRAINS/ACCESS: IV access: Left-sided tunneled catheter Drips: s/p Levophed, currently not on any drips DISPOSITION: Telemetry Patient's status discussed with patient daughter ,Maryam-on bedside, nurse. More than 21 minute spent with patient- advance care planning- full code. Case discussed with Dr. Gill Plan discussed with: Patient, Daughter (Maryam), Other (Nurse) My Orders My Orders Orders - CHANDNI BREWSTER Procedure Category Date Status Time Pt Request For Service PT 04/10/25 Logged 09:56 Nifedipine Er PHA 04/11/25 In Process (Procardia Xl 10:00 Hydralazine Hcl PHA 04/10/25 In Process Tablet (Apresoline 14:00 Patients Own PHA 04/10/25 In Process Medication 22:00 Pt Request For Service PT 04/10/25 Logged 16:12 Lactulose Oral PHA 04/10/25 In Process 22:00 Basic Metabolic Panel LAB 04/11/25 In Process 04:00 Complete Blood Count LAB 04/11/25 In Process 04:00 Manual Differential LAB 04/11/25 In Process 06:58 Dietary Evaluation Review Recommendations by RD: Protein Supplementation Comments: 1) Add renal restriction to cardiac diet 2) Initiate Nepro qd 3) Encourage optimal PO intake 4) Follow-up with cardiology, pulmonology, and nephrology 5) Continue to monitor I&O, labs, and skin integrity Expected Outcomes/Goals: 1) appetite and labs to improve 2) wound to improve 3) f/u in 3-5 days Date of Service: Apr 11, 2025 Billing Provider: LUANNE GILL MD Common Visit Codes: [id number] INP/OBS CARE(HIGH) Secondary Visit Codes: [id number] CARE PLAN 30 MINUTES CHANDNI BREWSTER Apr 11, 2025 07:56 LUANNE GILL MD Apr 13, 2025 11:26
[2025-04-11 07:57] LABS: Blood Urea Nitrogen 26 mg/dL (9-23); Chloride 97 mmol/L (98-107)
[2025-04-11 08:45] LABS: Anisocytosis Slight; Total Cells Counted 100.0 (100)
[2025-04-11] MEDS: BISACODYL 10 MG RECT SUPP PR ONE (08:47)
--- NOTE | 2025-04-11 10:51 | DVHPN2 ---
Progress Note Date Seen: Apr 11, 2025 Medical Necessity Reason Pt with a Central, PICC or Fol: Yes (TUNNEL CATHETER) Subjective Patient reports: No new complaints Review of Systems: Deferred Objective vital signs Vital Sign Date Time Temp Pulse Resp B/P (MAP) Pulse Ox O2 Delivery O2 Flow Rate FiO2 04/11/25 10:30 100 123/71 04/11/25 09:00 98.2 18 97 98.2 04/11/25 07:07 Nasal Cannula 3.0 04/11/25 07:07 32 Total Intake and Output 04/10/25 04/10/25 04/11/25 15:00 23:00 07:00 Intake Total 100 ml 0 ml 340 ml Output Total 0 ml 0 ml Balance 100 ml 0 ml 340 ml medications Current Medications Medications Dose Ordered Sig/Margarito Route Start Time Stop Time Status Last Admin Dose Admin Piperacillin Sod/ Tazobactam Sod 100 ml @ 25 mls/hr Q12HR IV 04/05/25 22:00 04/11/25 10:32 25 MLS/HR Aspirin 81 mg DAILY PO 04/05/25 17:40 04/11/25 10:30 81 MG Atorvastatin Calcium 40 mg HS PO 04/05/25 22:00 04/10/25 21:11 40 MG Morphine Sulfate 2 mg Q30MP PRN IV 04/05/25 17:30 Acetaminophen 650 mg Q6HP PRN PO 04/05/25 17:30 Nitroglycerin 0.4 mg Q5MINP PRN SL 04/05/25 17:30 Ondansetron HCl 4 mg Q4HP PRN IV 04/05/25 17:30 04/10/25 23:45 4 MG Enoxaparin Sodium 30 mg DAILY SC 04/06/25 10:00 04/11/25 10:31 30 MG Multivit/Ca Carb/ B Cmplx/FA/Prenat 1 tab DAILY PO 04/06/25 10:00 04/11/25 10:30 1 TAB Clopidogrel Bisulfate 75 mg DAILY PO 04/06/25 10:00 04/11/25 10:30 75 MG Quetiapine Fumarate 100 mg DAILY PO 04/06/25 10:00 04/11/25 10:29 100 MG Patient Own Medication 3 cap HS PO 04/05/25 22:00 Levothyroxine Sodium 200 mcg QAM@0600 PO 04/06/25 06:00 04/11/25 06:51 200 MCG Sevelamer HCl 1,600 mg TIDWM PO 04/06/25 08:00 04/11/25 08:41 1,600 MG Hydromorphone HCl 0.5 mg Q4HPRN PRN IV 04/06/25 01:15 04/11/25 08:47 0.5 MG Pantoprazole Sodium 40 mg DAILY@0600 PO 04/07/25 06:00 04/11/25 06:51 40 MG Albuterol 2.5 mg Q6HPRN PRN NEB 04/06/25 10:30 04/10/25 19:43 2.5 MG Carisoprodol 350 mg TID PO 04/06/25 12:00 04/11/25 06:51 350 MG Mupirocin 1 applic BID EACHNOSTRI 04/06/25 22:00 04/11/25 21:59 04/10/25 09:48 1 APPLIC Carvedilol 12.5 mg Q12HR PO 04/08/25 22:00 04/11/25 10:30 12.5 MG Docusate Sodium 100 mg BID PRN PO 04/09/25 16:45 04/10/25 13:09 100 MG Ergocalciferol 50,000 unit Q7D PO 04/09/25 18:30 04/09/25 20:03 50,000 UNIT Nifedipine 90 mg DAILY PO 04/11/25 10:00 Hydralazine HCl 25 mg Q8HR PO 04/10/25 14:00 04/11/25 06:51 25 MG Patient Own Medication 1 BID MA 04/10/25 22:00 Morphine Sulfate 15 mg Q12HR PO 04/10/25 22:00 04/11/25 10:33 15 MG Lactulose 30 ml BID PO 04/10/25 22:00 04/11/25 10:30 30 ML Examination: GENERAL:Abnormal, MSK:Abnormal, NEURO:Abnormal laboratory and microbiology Laboratory Tests 04/11/25 06:58 Test 04/11/25 06:58 Range/Units Serum Glucose 82 74-106 mg/dL Microbiology Date/Time Source Procedure Growth Status 04/05/25 23:15 Nose MRSA Screen - Final Methicillin Resistant S.aureus Complete 9/26/25 11:30 Blood Blood Culture - Final NO GROWTH AFTER 5 DAYS OF INCUBATION. Complete Problem List/Assessment/Plan Problem List/Assessment/Plan 1) ESRD on dialysis 2) working diagnosis of possible septic shock - prelim report of blood cultures are negative 3) chest pain 4) anemia secondary to CKD five 5) paraplegia Multifocal lytic lesions on CT scan concerning for metastatic disease recs HD next Tuesday Multifocal lytic lesions on CT scan concerning for metastatic disease--bone scan has been ordered pending Plan discussed with: Patient Dietary Evaluation Review Recommendations by RD: Protein Supplementation Comments: 1) Add renal restriction to cardiac diet 2) Initiate Nepro qd 3) Encourage optimal PO intake 4) Follow-up with cardiology, pulmonology, and nephrology 5) Continue to monitor I&O, labs, and skin integrity Expected Outcomes/Goals: 1) appetite and labs to improve 2) wound to improve 3) f/u in 3-5 days MALVIN SEAY MD Apr 11, 2025 10:51
--- NOTE | 2025-04-11 14:54 | DVH ---
Procedure: NM BONE WHOLE BODY Exam Date: 04/11/2025 01:24 PM Reason for study/Clinical History: BONE METS Comparison Study: CT BIOPSY BONE MARROW/ ASPIRATION on DOS: 12/08/23, XR BONE SURVEY COMP on DOS: 12/06, XR BONE SURVEY COMP on DOS: 12/06/23 Prior correlative imaging: None Nuclear Medicine Whole Body Bone Scan Technique: Following the intravenous administration of 26.4 millicuries of technetium 99m labeled MDP, whole bod y images in the anterior and posterior projections were obtained 3 hours following the administration of radiopharmaceutical. Findings: There is mild symmetric multifocal activity overlying both shoulders consistent with mild degenerativ e change. The expected mild activity is noted overlying both kidneys and the bladder without evidence of obstru ction. Indeterminate diffuse symmetric increased activity is present in the calvarium, maxilla and mandible. Few foci of increased activity are present in the right femur and right inferior pubic ramus. Impression: Indeterminate diffuse increased activity in the calvarium, maxilla and mandible. This may be related to metastatic disease or metabolic process or Paget's disease. Few foci of increased activity in the right femur and right inferior pubic ramus. This may be related to metastatic disease or trauma. Clinical correlation advised.
--- NOTE | 2025-04-11 21:51 | DVHPN2 ---
Progress Note - Dictate Date Seen: Apr 11, 2025 Medical Necessity Reason Pt with a Central, PICC or Fol: Yes (TUNNEL CATHETER) Subjective Patient was seen and evaluated in follow up. Patient is complaining of substernal chest discomfort. Patient is on 3 LPM NC. WBC 3.9, HGB 9.2, HCT 28.5, BUN 26, ELECTRONICS PROCESSOR 3.29. Telemetry reviewed. vital signs Vital Sign Date Time Temp Pulse Resp B/P (MAP) Pulse Ox O2 Delivery O2 Flow Rate FiO2 04/11/25 10:30 100 123/71 04/11/25 10:30 18 04/11/25 09:00 98.2 97 98.2 04/11/25 07:07 Nasal Cannula 3.0 04/11/25 07:07 32 Total Intake and Output 04/10/25 04/10/25 04/11/25 15:00 23:00 07:00 Intake Total 100 ml 0 ml 340 ml Output Total 0 ml 0 ml Balance 100 ml 0 ml 340 ml medications Current Medications Medications Dose Ordered Sig/Margarito Route Start Time Stop Time Status Last Admin Dose Admin Piperacillin Sod/ Tazobactam Sod 100 ml @ 25 mls/hr Q12HR IV 04/05/25 22:00 04/11/25 10:32 25 MLS/HR Aspirin 81 mg DAILY PO 04/05/25 17:40 04/11/25 10:30 81 MG Atorvastatin Calcium 40 mg HS PO 04/05/25 22:00 04/10/25 21:11 40 MG Morphine Sulfate 2 mg Q30MP PRN IV 04/05/25 17:30 Acetaminophen 650 mg Q6HP PRN PO 04/05/25 17:30 Nitroglycerin 0.4 mg Q5MINP PRN SL 04/05/25 17:30 Ondansetron HCl 4 mg Q4HP PRN IV 04/05/25 17:30 04/10/25 23:45 4 MG Enoxaparin Sodium 30 mg DAILY SC 04/06/25 10:00 04/11/25 10:31 30 MG Multivit/Ca Carb/ B Cmplx/FA/Prenat 1 tab DAILY PO 04/06/25 10:00 04/11/25 10:30 1 TAB Clopidogrel Bisulfate 75 mg DAILY PO 04/06/25 10:00 04/11/25 10:30 75 MG Quetiapine Fumarate 100 mg DAILY PO 04/06/25 10:00 04/11/25 10:29 100 MG Patient Own Medication 3 cap HS PO 04/05/25 22:00 Levothyroxine Sodium 200 mcg QAM@0600 PO 04/06/25 06:00 04/11/25 06:51 200 MCG Sevelamer HCl 1,600 mg TIDWM PO 04/06/25 08:00 04/11/25 08:41 1,600 MG Hydromorphone HCl 0.5 mg Q4HPRN PRN IV 04/06/25 01:15 04/11/25 08:47 0.5 MG Pantoprazole Sodium 40 mg DAILY@0600 PO 04/07/25 06:00 04/11/25 06:51 40 MG Albuterol 2.5 mg Q6HPRN PRN NEB 04/06/25 10:30 04/10/25 19:43 2.5 MG Carisoprodol 350 mg TID PO 04/06/25 12:00 04/11/25 06:51 350 MG Mupirocin 1 applic BID EACHNOSTRI 04/06/25 22:00 04/11/25 21:59 04/10/25 09:48 1 APPLIC Carvedilol 12.5 mg Q12HR PO 04/08/25 22:00 04/11/25 10:30 12.5 MG Docusate Sodium 100 mg BID PRN PO 04/09/25 16:45 04/10/25 13:09 100 MG Ergocalciferol 50,000 unit Q7D PO 04/09/25 18:30 04/09/25 20:03 50,000 UNIT Nifedipine 90 mg DAILY PO 04/11/25 10:00 Hydralazine HCl 25 mg Q8HR PO 04/10/25 14:00 04/11/25 06:51 25 MG Patient Own Medication 1 BID TX 04/10/25 22:00 Morphine Sulfate 15 mg Q12HR PO 04/10/25 22:00 04/11/25 10:33 15 MG Lactulose 30 ml BID PO 04/10/25 22:00 04/11/25 10:30 30 ML objective GENERAL: Alert and oriented x 3. No acute distress. Paraplegic. EYES: PERRL, EOMI. Anicteric. HENT: Moist mucous membranes. LUNGS: Clear to auscultation bilaterally. CARDIOVASCULAR: Regular rate and rhythm. ABDOMEN: Soft, nontender and nondistended. EXTREMITIES: No edema. NEUROLOGIC: No focal neurological deficits. SKIN: Wounds (Decubitus). laboratory and microbiology Laboratory Tests 04/11/25 06:58 Test 04/11/25 06:58 Range/Units Serum Glucose 82 74-106 mg/dL Problem List NSTEMI likely type 2. Anemia likely due to chronic renal failure. Cardiomegaly. Probable pneumonia. Elevated ALP. Hyponatremia. Hyperkalemia. Thrombocytopenia. Acute on chronic renal failure on dialysis (M/W/F). Acute hypoxic respiratory failure on supportive oxygen. 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 History of chronic fracture of the right inferior pubic ramus. History of paraplegia. History of CAD, patient denies and claims she does not have any stents in her heart. History of hypertension. History of COPD. History of CHF. History of bed-bound due to back surgery in 2018 for cyst removal. History of [place]. History of bipolar disease. History of ventral umbilical hernia. History of tonsillectomy. History of hemorrhoids. History of I&D for decubitus ulcer. History of tobacco use. Assessment/Plan Continued all current supportive medical care. Aspirin, Plavix. Coreg, Nifedipine, Hydralazine. DVT and GI prophylactics. Dilaudid and Morphine for pain management. IV antibiotics as ordered. Additional plan as per the hospital course. Dietary Evaluation Review Recommendations by RD: Protein Supplementation Comments: 1) Add renal restriction to cardiac diet 2) Initiate Nepro qd 3) Encourage optimal PO intake 4) Follow-up with cardiology, pulmonology, and nephrology 5) Continue to monitor I&O, labs, and skin integrity Expected Outcomes/Goals: 1) appetite and labs to improve 2) wound to improve 3) f/u in 3-5 days Plan discussed with: Patient WENDY COREAS MD Apr 11, 2025 12:27
[2025-04-12] VITALS (12 sets, daily range): BP systolic 93–124; BP diastolic 43–63; PULSE 70–97; RESP 14–20; TEMP 97–99; O2SAT 91–100
[2025-04-12 06:20] LABS: Potassium 4.8 mmol/L (3.5-5.1); Sodium 137 mmol/L (136-145)
[2025-04-12 06:21] LABS: Anion Gap 12 (5-15); Carbon Dioxide 28 mmol/L (20-31)
[2025-04-12 06:22] LABS: Calcium 8.7 mg/dL (8.7-10.4)
[2025-04-12 06:24] LABS: Hematocrit 25.2 % (36.0-46.0); Hemoglobin 8.2 g/dL (12.2-16.2); Iron 70.0 ug/dL (50-170); Mean Corpuscular Hemoglobin 31.9 pg (28.0-32.0); Mean Corpuscular Volume 98.2 fL (80.0-100.0)
[2025-04-12 06:25] LABS: Chloride 97 mmol/L (98-107)
[2025-04-12 06:26] LABS: BUN/Creatinine Ratio 7.1 (10.0-20.0)
[2025-04-12 06:27] LABS: Glucose 68 mg/dL (74-106); Total Iron Binding Capacity 149.0 ug/dL (250-425)
[2025-04-12 06:28] LABS: Blood Urea Nitrogen 29 mg/dL (9-23)
[2025-04-12 10:28] LABS: Total Cells Counted 100.0 (100)
[2025-04-12 10:29] LABS: Anisocytosis Slight; Ovalocytes FEW
[2025-04-12] MEDS: guaiFENesin-DM 100/10mg/5ml SYR PO ONE (10:34)
--- NOTE | 2025-04-12 13:51 | DVHPN2 ---
Progress Note Date Seen: Apr 12, 2025 Medical Necessity Reason Pt with a Central, PICC or Fol: Yes (TUNNEL CATHETER) Subjective Changes from previous H/P or p: No Changes Objective vital signs Vital Sign Date Time Temp Pulse Resp B/P (MAP) Pulse Ox O2 Delivery O2 Flow Rate FiO2 04/12/25 13:09 110/56 04/12/25 12:31 97.9 70 20 98 97.9 04/11/25 20:35 Nasal Cannula* 3 32 Total Intake and Output 04/11/25 04/11/25 04/12/25 15:00 23:00 07:00 Intake Total 100 ml 650 ml 240 ml Balance 100 ml 650 ml 240 ml medications Current Medications Medications Dose Ordered Sig/Margarito Route Start Time Stop Time Status Last Admin Dose Admin Piperacillin Sod/ Tazobactam Sod 100 ml @ 25 mls/hr Q12HR IV 04/05/25 22:00 04/12/25 10:25 25 MLS/HR Aspirin 81 mg DAILY PO 04/05/25 17:40 04/12/25 10:25 81 MG Atorvastatin Calcium 40 mg HS PO 04/05/25 22:00 04/11/25 23:45 40 MG Morphine Sulfate 2 mg Q30MP PRN IV 04/05/25 17:30 Acetaminophen 650 mg Q6HP PRN PO 04/05/25 17:30 Nitroglycerin 0.4 mg Q5MINP PRN SL 04/05/25 17:30 Ondansetron HCl 4 mg Q4HP PRN IV 04/05/25 17:30 04/10/25 23:45 4 MG Enoxaparin Sodium 30 mg DAILY SC 04/06/25 10:00 04/12/25 10:28 30 MG Multivit/Ca Carb/ B Cmplx/FA/Prenat 1 tab DAILY PO 04/06/25 10:00 04/12/25 10:28 1 TAB Clopidogrel Bisulfate 75 mg DAILY PO 04/06/25 10:00 04/12/25 10:28 75 MG Quetiapine Fumarate 100 mg DAILY PO 04/06/25 10:00 04/12/25 10:27 100 MG Patient Own Medication 3 cap HS PO 04/05/25 22:00 Levothyroxine Sodium 200 mcg QAM@0600 PO 04/06/25 06:00 04/12/25 05:48 200 MCG Sevelamer HCl 1,600 mg TIDWM PO 04/06/25 08:00 04/12/25 13:09 1,600 MG Hydromorphone HCl 0.5 mg Q4HPRN PRN IV 04/06/25 01:15 04/12/25 08:47 0.5 MG Pantoprazole Sodium 40 mg DAILY@0600 PO 04/07/25 06:00 04/12/25 05:48 40 MG Albuterol 2.5 mg Q6HPRN PRN NEB 04/06/25 10:30 04/10/25 19:43 2.5 MG Carisoprodol 350 mg TID PO 04/06/25 12:00 04/12/25 05:48 350 MG Carvedilol 12.5 mg Q12HR PO 04/08/25 22:00 04/11/25 10:30 12.5 MG Docusate Sodium 100 mg BID PRN PO 04/09/25 16:45 04/10/25 13:09 100 MG Ergocalciferol 50,000 unit Q7D PO 04/09/25 18:30 04/09/25 20:03 50,000 UNIT Nifedipine 90 mg DAILY PO 04/11/25 10:00 04/11/25 13:16 90 MG Hydralazine HCl 25 mg Q8HR PO 04/10/25 14:00 04/12/25 05:48 25 MG Patient Own Medication 1 BID HI 04/10/25 22:00 Morphine Sulfate 15 mg Q12HR PO 04/10/25 22:00 04/12/25 10:28 15 MG Lactulose 30 ml BID PO 04/10/25 22:00 04/11/25 10:30 30 ML Epoetin Checo-epbx 4,000 unit MWF@2100 SC 04/12/25 21:00 Zirconium Oxide 10 gm DAILY PO 04/11/25 20:45 Guaifenesin/ Dextromethorphan 10 ml Q4HP PRN PO 04/12/25 14:00 Examination: CVS:Normal, SKIN:Abnormal laboratory and microbiology Laboratory Tests 04/12/25 05:31 Test 04/12/25 05:31 Range/Units Serum Glucose 68 L 74-106 mg/dL Microbiology Date/Time Source Procedure Growth Status 9/26/25 23:15 Nose MRSA Screen - Final Methicillin Resistant S.aureus Complete 04/05/25 11:30 Blood Blood Culture - Final NO GROWTH AFTER 5 DAYS OF INCUBATION. Complete Problem List/Assessment/Plan Problem List/Assessment/Plan 1) ESRD on dialysis 2) working diagnosis of possible septic shock - prelim report of blood cultures are negative 3) chest pain 4) anemia secondary to CKD five 5) paraplegia Multifocal lytic lesions on CT scan concerning for metastatic disease recs HD today Multifocal lytic lesions on CT scan concerning for metastatic disease--bone scan completed Plan discussed with: Patient My Orders My Orders Orders - HARPREET HAYES MD Procedure Category Date Status Time Cardiac DIET 04/12/25 Transmitted Diet-2gna,Lofat,Lochol Breakfast Epoetin Checo-Epbx PHA 04/12/25 In Process (Retacrit) 21:00 Sodium Zirconium PHA 04/11/25 In Process Cyclosilicate 20:45 Dietary Evaluation Review Recommendations by RD: Protein Supplementation Comments: 1) Add renal restriction to cardiac diet 2) Initiate Nepro qd 3) Encourage optimal PO intake 4) Follow-up with cardiology, pulmonology, and nephrology 5) Continue to monitor I&O, labs, and skin integrity Expected Outcomes/Goals: 1) appetite and labs to improve 2) wound to improve 3) f/u in 3-5 days Total Time (mins): 33 HARPREET HAYES MD Apr 12, 2025 13:51
[2025-04-12] MEDS ORDERED: guaiFENesin-DM 100/10mg/5ml SYR PO PRN (14:00)
--- NOTE | 2025-04-12 14:45 | ECG ---
[facility] Test Date: 2025-04-09 Test Time: 22:40:15 Pat Name: RACQUEL SAEZ Department: Room: 0203T Gender: F Position Description Manager: [id number] : 1955 Requested By: LINDA TOBAR Order Number: [id number] Reading MD: Kris Carlisle Measurements Intervals [place] Rate: 104 P: 59 AL: 163 QRS: -3 QRSD: 104 T: 80 QT: 345 QTc: 454 Interpretive Statements Sinus tachycardia Posterior infarct, old Electronically Signed On 04-20-2025 19:31:38 PDT by Kris Carlisle Please click the below link to view image of tracing.
--- NOTE | 2025-04-12 15:12 | DVHPNRES ---
Progress Note Date Seen: Apr 12, 2025 Resident Creating Document: CHANDNI BREWSTER RESIDENT Medical Necessity Reason Pt with a Central, PICC or Fol: Yes (TUNNEL CATHETER) Subjective Review of Systems This is a 70-year-old female with past medical history of paraplegia since 2018 after surgery spine, CAD with no stent recent angiogram 3 months ago in [facility] reported normal, HTN, COPD on 2 L home oxygen, CHF with preserved ejection fraction, bed-bound since surgery 2017, bipolar disorder ESRD on hemodialysis Tuesday umbilical hernia, tonsillectomy, hemorrhoids, I and D on her decubitus ulcer sacral region present to ER with complaint of chest pain for 2 weeks which is getting worse before arriving to the hospital. Esterase pain was 9/10 intensity, sharp, intermitted, no aggravating or relieving factor. History of broken right hip 1 year ago and surgery done in [facility] but no prosthesis. Admission patient become hemodynamically unstable and started pressor. Off pressor on 04/07/2025. Past medical history: CAD, CHF, HTN, [place], COPD on 2 L home oxygen, bipolar disorder, ESRD, ventral umbilical hernia, hemorrhoid Past Surgical history: Tonsillectomy Family history cancer-mother with pacemaker and breast cancer, father with colon cancer Social history: X 0 smoker, quit 1 year ago, no ETOH use. Denies any illicit drug Family history lives with family, having caregivers 04/08/2025: Patient seen and evaluated in bedside. Patient complained left upper extremity pain associated with chest pain. No pain on rest but aggravated on movement. Labs for rheumatoid factor, uric acid level we will follow. Physical therapy during discharge. 04/09/2025: Patient seen and evaluated in bedside today. Patient left hand swelling is improving but chest pain on deep palpation. Colace and lactulose ordered for constipation, monitor for bowel movement. Patient currently on oxygen via nasal cannula. 04/10: Patient seen and evaluated in bedside today. Patient chest pain on palpation sternal area. Ordered for bone scan due to CT showed lytic bone lesion. Patient will be benefitted per physical therapy. 04/11: Patient seen and evaluated in bedside. Patient pain better in compared to yesterday switching morphine ER. Bone scan to rule out lytic lesion on CT chest ordered. Follow-up for bowel movement. Denies any fever, abdominal pain, headache. 04/12: Patient seen and evaluated in bedside today. Hemodialysis scheduled today. Patient chest pain is improving. Bone scan done yesterday and IR consulted biopsy right axillary lymph node. Objective vital signs Vital Sign Date Time Temp Pulse Resp B/P (MAP) Pulse Ox O2 Delivery O2 Flow Rate FiO2 04/12/25 14:25 76 18 109/56 04/12/25 12:31 97.9 98 97.9 04/11/25 20:35 Nasal Cannula* 3 32 Total Intake and Output 04/11/25 04/11/25 04/12/25 15:00 23:00 07:00 Intake Total 100 ml 650 ml 240 ml Balance 100 ml 650 ml 240 ml medications Current Medications Medications Dose Ordered Sig/Margarito Route Start Time Stop Time Status Last Admin Dose Admin Piperacillin Sod/ Tazobactam Sod 100 ml @ 25 mls/hr Q12HR IV 04/05/25 22:00 04/12/25 14:23 25 MLS/HR Aspirin 81 mg DAILY PO 04/05/25 17:40 04/12/25 10:25 81 MG Atorvastatin Calcium 40 mg HS PO 04/05/25 22:00 04/11/25 23:45 40 MG Morphine Sulfate 2 mg Q30MP PRN IV 04/05/25 17:30 Acetaminophen 650 mg Q6HP PRN PO 04/05/25 17:30 Nitroglycerin 0.4 mg Q5MINP PRN SL 04/05/25 17:30 Ondansetron HCl 4 mg Q4HP PRN IV 04/05/25 17:30 04/12/25 14:24 4 MG Enoxaparin Sodium 30 mg DAILY SC 04/06/25 10:00 04/12/25 10:28 30 MG Multivit/Ca Carb/ B Cmplx/FA/Prenat 1 tab DAILY PO 04/06/25 10:00 04/12/25 10:28 1 TAB Clopidogrel Bisulfate 75 mg DAILY PO 04/06/25 10:00 04/12/25 10:28 75 MG Quetiapine Fumarate 100 mg DAILY PO 04/06/25 10:00 04/12/25 10:27 100 MG Patient Own Medication 3 cap HS PO 04/05/25 22:00 Levothyroxine Sodium 200 mcg QAM@0600 PO 04/06/25 06:00 04/12/25 05:48 200 MCG Sevelamer HCl 1,600 mg TIDWM PO 04/06/25 08:00 04/12/25 13:09 1,600 MG Hydromorphone HCl 0.5 mg Q4HPRN PRN IV 04/06/25 01:15 04/12/25 14:25 0.5 MG Pantoprazole Sodium 40 mg DAILY@0600 PO 04/07/25 06:00 04/12/25 05:48 40 MG Albuterol 2.5 mg Q6HPRN PRN NEB 04/06/25 10:30 04/10/25 19:43 2.5 MG Carisoprodol 350 mg TID PO 04/06/25 12:00 04/12/25 05:48 350 MG Carvedilol 12.5 mg Q12HR PO 04/08/25 22:00 04/11/25 10:30 12.5 MG Docusate Sodium 100 mg BID PRN PO 04/09/25 16:45 04/10/25 13:09 100 MG Ergocalciferol 50,000 unit Q7D PO 04/09/25 18:30 04/09/25 20:03 50,000 UNIT Nifedipine 90 mg DAILY PO 04/11/25 10:00 04/11/25 13:16 90 MG Hydralazine HCl 25 mg Q8HR PO 04/10/25 14:00 04/12/25 05:48 25 MG Patient Own Medication 1 BID LA 04/10/25 22:00 Morphine Sulfate 15 mg Q12HR PO 04/10/25 22:00 04/12/25 10:28 15 MG Lactulose 30 ml BID PO 04/10/25 22:00 04/11/25 10:30 30 ML Epoetin Checo-epbx 4,000 unit MWF@2100 SC 04/12/25 21:00 Zirconium Oxide 10 gm DAILY PO 04/11/25 20:45 Guaifenesin/ Dextromethorphan 10 ml Q4HP PRN PO 04/12/25 14:00 Examination Constitutional: Patient lying on bed. On nasal cannula 2 L oxygen ENT: No: Ear pain, Ear discharge, Nose pain, Nose discharge Respiratory: Bilateral equal entry at both lung, chest tender on deep palpation Cardiovascular: No: Chest Pain, Palpitations, Orthopnea, Paroxysmal Noc. Dyspnea, Edema, Gastrointestinal: Tender on deep palpation left lower quadrant, bowel sounds present Genitourinary: Suprapubic area and renal angle non tender on deep palpation Musculoskeletal: bed-bound, right hip and sternal area [id number] tender on deep palpation Skin: tunnel catheter on left side of the chest Neurological: Paraplegia, decreased sensation lower extremity laboratory and microbiology Laboratory Tests 04/12/25 05:31 Test 04/12/25 05:31 Range/Units Serum Glucose 68 L 74-106 mg/dL Microbiology Date/Time Source Procedure Growth Status 04/05/25 23:15 Nose MRSA Screen - Final Methicillin Resistant S.aureus Complete 04/05/25 11:30 Blood Blood Culture - Final NO GROWTH AFTER 5 DAYS OF INCUBATION. Complete Problem List/Assessment/Plan Problem List/Assessment/Plan This is a 70-year-old female with past medical history of paraplegia since 2018 after surgery spine, CAD with no stent recent angiogram 3 months ago in [facility] reported normal, HTN, COPD on 2 L home oxygen, CHF with preserved ejection fraction, bed-bound since surgery 2017, bipolar disorder ESRD on hemodialysis Tuesday, umbilical hernia, tonsillectomy, hemorrhoids, I and D on her decubitus ulcer sacral region present to ER with complaint of chest pain for 2 weeks which is getting worse before arrived to the hospital. Chest pain was 9/10 intensity, sharp, intermitted, no aggravating or relieving factor. History of broken right hip 1 year ago and surgery done in [facility] but no prosthesis. Admission patient become hemodynamically unstable and started pressor. Off pressor on 04/07/2025. NEURO: Paraplegia since 2018 after surgery in the spine * Not on any IV sedative * Bed-bound since 2018 * Plan: Physical therapy , fall precaution CARDIOVASCULAR: Hypotensive shock requiring pressor support Cardiomegaly. NSTEMI likely type 2 secondary to demand ischemia History of CAD, patient denies and claims she does not have any stents in her heart. History of CHF, AK Ascending thoracic aorta is moderately dilated, measuring 3.8 cm. Dyslipidemia * Trop 80s to 90s, on admission * EKG showed no ST-T changes * Septic Shock secondary to pneumonia * Likely heart failure with preserved ejection fraction * Echo on 04/06/2025 shows LVEF 65%, moderately dilated right ventricle and right atrium * Cardiology: Elevated Troponin - trending up, likely demand ischemia in setting of CPR, septic shock. EKG-no ST and T-wave abnormalities. * Plan Continue atorvastatin, aspirin, clopidogrel, nitroglycerin sublingual, nifedipine, hydralazine, carvedilol, lisinopril. * Monitor blood pressure PULMONARY: Acute hypoxic respiratory failure due to COPD exacerbation/pneumonia Bilateral pleural effusions Possible aspiration pneumonia Possible gram positive/Gram-negative pneumonia History of COPD with 2L home O2 History of tobacco use * CT chest on 04/09/2025: Trace bilateral pleural effusions with extensive adjacent atelectasis of the posterior bilateral lower lobes. * Plan: IV antibiotics Zosyn, Continue breathing treatment with ipratropium and albuterol, Robitussin DM syrup. GASTROINTESTINAL: History of GERD History of ventral umbilical hernia. History of tonsillectomy. History of hemorrhoids. Sebaceous cyst abdominal wall Elevated ALP Chronic constipation likely due to bed-bound US soft tissue: 2x1x1 cm subcutaneous cystic mass which could be represent a sebaceous cyst. * Plan: :Continue Protonix , lactulose . GENITOURINARY: CKD on HD HD on Tuesday Nephrology consult appreciated Hyponatremia Hyperkalemia * CT on 04/09/2025: Marked bilateral renal atrophy and cortical scarring / thinning. * plan:Continue savelamer, hemodialysis. HEMATOLOGY: Questionable metastatic disease Anemia of chronic disease secondary to renal failure * CT chest on 04/09/2025: Multifocal lytic lesions throughout the visualized axial and appendicular skeleton involving the vertebral bodies of the thoracic spine, bilateral humeral heads and bilateral concerning for metastatic disease. * Bone scan on 03/12/2025: Indeterminate diffuse increased activity in the calvarium, maxilla and mandible. This may be related to metastatic disease or metabolic process or Paget's disease. Few foci of increased activity in the right femur and right inferior pubic ramus. This may be related to metastatic disease or trauma. * Ferritin 831.3, iron 83, TIBC is 162, % saturation 26.5 on admission * Thrombocytopenia * Plan:cbc. METABOLIC: Hypothyroidism Vitamin D deficiency THS 8.06, free T4 0.49 Lactic acid 1.0 Hemoglobin A1c 4.5 * Plan:Continue levothyroxine, vitamin D3 INFECTIOUS DISEASE: History of aspiration pneumonia Possible aspiration pneumonia Positive MRSA screen, mupirocin SIRS (Leukopenia and tachycardia) * Blood culture x2 negative * CRP 9.70 * ESR 50 * plan:Continue Zosyn. * Biopsy right axillary lymph not by IR pending. 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 History of chronic fracture of the right inferior pubic ramus. History of paraplegia. Gait instability Lytic bony lesion Questionable metastatic disease Possible Paget's disease of the bone * CT chest on 04/09/2025: Multifocal lytic lesions involving the vertebral bodies, bilateral humeral heads concerning for metastatic disease. * Bone scan on 03/12/2025: Indeterminate diffuse increased activity in the calvarium, maxilla and mandible, may be related to metastatic disease or metabolic process or Paget's disease. * Patient bed-bound since then * Uric acid level 4.1 * Rheumatoid factor<10 * Plan to continue pain management with morphine ER, PSYCHIATRIC History of bipolar disorder Anxiety disorder * Plan continue alprazolam and quetiapine History of sacral ulcer Sacral area healing scar tissue with no active discharge or signs symptoms of inflammation. DIET: Renal DVT prophylax: Lovenox GI prophylaxis: Protonix Bowel regimen: Lactulose as needed Code status: Full code. LINES/DRAINS/ACCESS: IV access: Left-sided tunneled catheter, right groin triple-lumen catheter. Drips: s/p Levophed, currently not on any drips DISPOSITION: Telemetry Patient's status discussed with patient daughter Maryam-over the phone, nurse. More than 27 minute spent with patient. Case discussed with Dr. Mcclellan Plan discussed with: Patient, Daughter (Maryam), Other (Nurse) My Orders My Orders Orders - CHANDNI BREWSTER RESIDENT Procedure Category Date Status Time Communication Order ORDERS 04/12/25 Transmitted 08:22 Guaifenesin-Dextromet PHA 04/12/25 In Process Liquid (Robitussin 14:00 Dietary Evaluation Review Recommendations by RD: Protein Supplementation Comments: 1) Add renal restriction to cardiac diet 2) Initiate Nepro qd 3) Encourage optimal PO intake 4) Follow-up with cardiology, pulmonology, and nephrology 5) Continue to monitor I&O, labs, and skin integrity Expected Outcomes/Goals: 1) appetite and labs to improve 2) wound to improve 3) f/u in 3-5 days Date of Service: Apr 12, 2025 Billing Provider: MILY MCCLELLAN MD Common Visit Codes: NOT BILLABLE CHANDNI BREWSTER RESIDENT Apr 12, 2025 15:12 MILY MCCLELLAN MD Apr 25, 2025 16:35
--- NOTE | 2025-04-12 17:25 | DVH ---
RIGHT Upper Extremity targeted ultrasound Clinical History: Right axillary lump Comparison: None Technique: Realtime grayscale and doppler ultrasound images of the deep venous structures with spectr al waveform analysis were obtained. Findings: Minimally prominent lymph node in the right axilla measuring 1.0 x 1.0 x 0.6 cm with normal morpholog y. Fatty hilum is intact. No discrete mass. No inflammatory changes. Impression: Minimally prominent right axillary lymph node without morphologically concerning features. Clinical f ollow-up recommended.
[2025-04-12] MEDS: EPOETIN ALFA-EPBX 4,000 UNIT/ML VIAL SC SCH (21:15)
--- NOTE | 2025-04-12 23:12 | DVHPN2 ---
Progress Note - Dictate Date Seen: Apr 12, 2025 Medical Necessity Reason Pt with a Central, PICC or Fol: Yes (TUNNEL CATHETER) Subjective Patient was seen and evaluated in follow up. Patient is complaining of severe back pain. Patient is on 3 LPM NC. Patient's caregiver Gabi is present at bedside. HGB 8.2, HCT 25.2, BUN 29, [employer] OFFICER 4.07, GLUC 68. NM Bone scan shows indeterminate diffuse increased activity in the calvarium, maxilla and mandible. This may be related to metastatic disease or metabolic process or Paget's disease. Few foci of increased activity in the right femur and right inferior pubic ramus. This may be related to metastatic disease or trauma. Telemetry reviewed. vital signs Vital Sign Date Time Temp Pulse Resp B/P (MAP) Pulse Ox O2 Delivery O2 Flow Rate FiO2 04/12/25 10:29 84 18 124/63 04/12/25 08:30 98.5 98 98.5 04/11/25 20:35 Nasal Cannula* 3 32 Total Intake and Output 04/11/25 04/11/25 04/12/25 15:00 23:00 07:00 Intake Total 100 ml 650 ml 240 ml Balance 100 ml 650 ml 240 ml medications Current Medications Medications Dose Ordered Sig/Margarito Route Start Time Stop Time Status Last Admin Dose Admin Piperacillin Sod/ Tazobactam Sod 100 ml @ 25 mls/hr Q12HR IV 04/05/25 22:00 04/12/25 10:25 25 MLS/HR Aspirin 81 mg DAILY PO 04/05/25 17:40 04/12/25 10:25 81 MG Atorvastatin Calcium 40 mg HS PO 04/05/25 22:00 04/11/25 23:45 40 MG Morphine Sulfate 2 mg Q30MP PRN IV 04/05/25 17:30 Acetaminophen 650 mg Q6HP PRN PO 04/05/25 17:30 Nitroglycerin 0.4 mg Q5MINP PRN SL 04/05/25 17:30 Ondansetron HCl 4 mg Q4HP PRN IV 04/05/25 17:30 04/10/25 23:45 4 MG Enoxaparin Sodium 30 mg DAILY SC 04/06/25 10:00 04/12/25 10:28 30 MG Multivit/Ca Carb/ B Cmplx/FA/Prenat 1 tab DAILY PO 04/06/25 10:00 04/12/25 10:28 1 TAB Clopidogrel Bisulfate 75 mg DAILY PO 04/06/25 10:00 04/12/25 10:28 75 MG Quetiapine Fumarate 100 mg DAILY PO 04/06/25 10:00 04/12/25 10:27 100 MG Patient Own Medication 3 cap HS PO 04/05/25 22:00 Levothyroxine Sodium 200 mcg QAM@0600 PO 04/06/25 06:00 04/12/25 05:48 200 MCG Sevelamer HCl 1,600 mg TIDWM PO 04/06/25 08:00 04/12/25 08:35 1,600 MG Hydromorphone HCl 0.5 mg Q4HPRN PRN IV 04/06/25 01:15 04/12/25 08:47 0.5 MG Pantoprazole Sodium 40 mg DAILY@0600 PO 04/07/25 06:00 04/12/25 05:48 40 MG Albuterol 2.5 mg Q6HPRN PRN NEB 04/06/25 10:30 04/10/25 19:43 2.5 MG Carisoprodol 350 mg TID PO 04/06/25 12:00 04/12/25 05:48 350 MG Carvedilol 12.5 mg Q12HR PO 04/08/25 22:00 04/11/25 10:30 12.5 MG Docusate Sodium 100 mg BID PRN PO 04/09/25 16:45 04/10/25 13:09 100 MG Ergocalciferol 50,000 unit Q7D PO 04/09/25 18:30 04/09/25 20:03 50,000 UNIT Nifedipine 90 mg DAILY PO 04/11/25 10:00 04/11/25 13:16 90 MG Hydralazine HCl 25 mg Q8HR PO 04/10/25 14:00 04/12/25 05:48 25 MG Patient Own Medication 1 BID MI 04/10/25 22:00 Morphine Sulfate 15 mg Q12HR PO 04/10/25 22:00 04/12/25 10:28 15 MG Lactulose 30 ml BID PO 04/10/25 22:00 04/11/25 10:30 30 ML Epoetin Checo-epbx 4,000 unit MWF@2100 [place] 04/12/25 21:00 Zirconium Oxide 10 gm DAILY PO 04/11/25 20:45 Guaifenesin/ Dextromethorphan 10 ml Q4HP PRN PO 04/12/25 14:00 objective GENERAL: Alert and oriented x 3. No acute distress. Paraplegic. EYES: PERRL, EOMI. Anicteric. HENT: Moist mucous membranes. LUNGS: Clear to auscultation bilaterally. CARDIOVASCULAR: Regular rate and rhythm. ABDOMEN: Soft, nontender and nondistended. EXTREMITIES: No edema. NEUROLOGIC: No focal neurological deficits. SKIN: Wounds (Decubitus). laboratory and microbiology Laboratory Tests 04/12/25 05:31 Test 04/12/25 05:31 Range/Units Serum Glucose 68 L 74-106 mg/dL Problem List NSTEMI likely type 2. Anemia likely due to chronic renal failure. Cardiomegaly. Probable pneumonia. Elevated ALP. Hyponatremia. Hyperkalemia. Thrombocytopenia. Acute on chronic renal failure on dialysis (M/W/F). Acute hypoxic respiratory failure on supportive oxygen. 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 History of chronic fracture of the right inferior pubic ramus. History of paraplegia. History of CAD, patient denies and claims she does not have any stents in her heart. History of hypertension. History of COPD. History of CHF. History of bed-bound due to back surgery in 2018 for cyst removal. History of NV. History of bipolar disease. History of ventral umbilical hernia. History of tonsillectomy. History of hemorrhoids. History of I&D for decubitus ulcer. History of tobacco use. Assessment/Plan Continued all current supportive medical care. Aspirin, Plavix. Hydralazine. DVT and GI prophylactics. Dilaudid and Morphine for pain management. IV antibiotics as ordered. Additional plan as per the hospital course. Dietary Evaluation Review Recommendations by RD: Protein Supplementation Comments: 1) Add renal restriction to cardiac diet 2) Initiate Nepro qd 3) Encourage optimal PO intake 4) Follow-up with cardiology, pulmonology, and nephrology 5) Continue to monitor I&O, labs, and skin integrity Expected Outcomes/Goals: 1) appetite and labs to improve 2) wound to improve 3) f/u in 3-5 days Plan discussed with: Patient WENDY COREAS MD Apr 12, 2025 12:11
[2025-04-13] VITALS (13 sets, daily range): BP systolic 67–139; BP diastolic 41–67; PULSE 76–91; RESP 14–18; TEMP 81–99.1; O2SAT 91–98
[2025-04-13 05:08] LABS: Mean Corpuscular Hemoglobin 31.7 pg (28.0-32.0)
[2025-04-13 05:12] LABS: Hematocrit 25.1 % (36.0-46.0); Hemoglobin 8.2 g/dL (12.2-16.2); Mean Corpuscular Volume 97.5 fL (80.0-100.0)
[2025-04-13 05:19] LABS: Chloride 99 mmol/L (98-107); Potassium 4.2 mmol/L (3.5-5.1); Sodium 141 mmol/L (136-145)
[2025-04-13 05:20] LABS: Anion Gap 10 (5-15); Calcium 9.0 mg/dL (8.7-10.4)
[2025-04-13 05:25] LABS: BUN/Creatinine Ratio 7.3 (10.0-20.0); Blood Urea Nitrogen 19 mg/dL (9-23); Glucose 75 mg/dL (74-106)
[2025-04-13 05:34] LABS: Carbon Dioxide 32 mmol/L (20-31)
[2025-04-13 06:45] LABS: Smudge Cells 3 /100 WBC; Total Cells Counted 100.0 (100)
[2025-04-13 06:46] LABS: Ovalocytes FEW
--- NOTE | 2025-04-13 08:48 | DVHPN2 ---
Progress Note Date Seen: Apr 13, 2025 Medical Necessity Reason Pt with a Central, PICC or Fol: Yes (TUNNEL CATHETER) The following are medically ne: Central Line (HD catheter) Objective vital signs Vital Sign Date Time Temp Pulse Resp B/P (MAP) Pulse Ox O2 Delivery O2 Flow Rate FiO2 04/13/25 06:55 146/66 04/13/25 06:01 96 Nasal Cannula 2.0 04/13/25 06:01 28 04/13/25 05:00 97.0 76 18 97.0 Total Intake and Output 04/12/25 04/12/25 04/13/25 15:00 23:00 07:00 Intake Total 420 ml 200 ml Balance 420 ml 200 ml medications Current Medications Medications Dose Ordered Sig/Margarito Route Start Time Stop Time Status Last Admin Dose Admin Piperacillin Sod/ Tazobactam Sod 100 ml @ 25 mls/hr Q12HR IV 04/05/25 22:00 04/12/25 21:15 25 MLS/HR Aspirin 81 mg DAILY PO 04/05/25 17:40 04/12/25 10:25 81 MG Atorvastatin Calcium 40 mg HS PO 04/05/25 22:00 04/12/25 21:16 40 MG Morphine Sulfate 2 mg Q30MP PRN IV 04/05/25 17:30 Acetaminophen 650 mg Q6HP PRN PO 04/05/25 17:30 Nitroglycerin 0.4 mg Q5MINP PRN SL 04/05/25 17:30 Ondansetron HCl 4 mg Q4HP PRN IV 04/05/25 17:30 04/12/25 14:24 4 MG Enoxaparin Sodium 30 mg DAILY SC 04/06/25 10:00 04/12/25 10:28 30 MG Multivit/Ca Carb/ B Cmplx/FA/Prenat 1 tab DAILY PO 04/06/25 10:00 04/12/25 10:28 1 TAB Clopidogrel Bisulfate 75 mg DAILY PO 04/06/25 10:00 04/12/25 10:28 75 MG Quetiapine Fumarate 100 mg DAILY PO 04/06/25 10:00 04/12/25 10:27 100 MG Patient Own Medication 3 cap HS PO 04/05/25 22:00 Levothyroxine Sodium 200 mcg QAM@0600 PO 04/06/25 06:00 04/13/25 06:55 200 MCG Sevelamer HCl 1,600 mg TIDWM PO 04/06/25 08:00 04/12/25 13:09 1,600 MG Hydromorphone HCl 0.5 mg Q4HPRN PRN IV 04/06/25 01:15 04/13/25 01:44 0.5 MG Pantoprazole Sodium 40 mg DAILY@0600 PO 04/07/25 06:00 04/13/25 06:55 40 MG Albuterol 2.5 mg Q6HPRN PRN NEB 04/06/25 10:30 04/12/25 19:54 2.5 MG Carisoprodol 350 mg TID PO 04/06/25 12:00 04/13/25 06:54 350 MG Carvedilol 12.5 mg Q12HR PO 04/08/25 22:00 04/11/25 10:30 12.5 MG Docusate Sodium 100 mg BID PRN PO 04/09/25 16:45 04/13/25 06:54 100 MG Ergocalciferol 50,000 unit Q7D PO 04/09/25 18:30 04/09/25 20:03 50,000 UNIT Nifedipine 90 mg DAILY PO 04/11/25 10:00 04/11/25 13:16 90 MG Hydralazine HCl 25 mg Q8HR PO 04/10/25 14:00 04/13/25 06:55 25 MG Patient Own Medication 1 BID NH 04/10/25 22:00 04/12/25 15:00 1 Morphine Sulfate 15 mg Q12HR PO 04/10/25 22:00 04/12/25 21:16 15 MG Lactulose 30 ml BID PO 04/10/25 22:00 04/11/25 10:30 30 ML Epoetin Checo-epbx 4,000 unit MWF@2100 SC 04/12/25 21:00 04/12/25 21:15 4,000 UNIT Zirconium Oxide 10 gm DAILY PO 04/11/25 20:45 Guaifenesin/ Dextromethorphan 10 ml Q4HP PRN PO 04/12/25 14:00 Examination: GENERAL:Normal laboratory and microbiology Laboratory Tests 04/13/25 04:40 Test 04/13/25 04:40 Range/Units Serum Glucose 75 74-106 mg/dL Microbiology Date/Time Source Procedure Growth Status 04/05/25 23:15 Nose MRSA Screen - Final Methicillin Resistant S.aureus Complete 04/05/25 11:30 Blood Blood Culture - Final NO GROWTH AFTER 5 DAYS OF INCUBATION. 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 5) paraplegia Multifocal lytic lesions on CT scan concerning for metastatic disease recs HD tuesday Multifocal lytic lesions on CT scan concerning for metastatic disease--bone scan completed Plan discussed with: Patient Dietary Evaluation Review Recommendations by RD: Protein Supplementation Comments: 1) Add renal restriction to cardiac diet 2) Initiate Nepro qd 3) Encourage optimal PO intake 4) Follow-up with cardiology, pulmonology, and nephrology 5) Continue to monitor I&O, labs, and skin integrity Expected Outcomes/Goals: 1) appetite and labs to improve 2) wound to improve 3) f/u in 3-5 days Total Time (mins): 33 HARPREET HAYES MD Apr 13, 2025 08:48
[2025-04-13] MEDS: SODIUM ZIRCONIUM CYCL 10 GM PAK PO SCH (08:56)
--- NOTE | 2025-04-13 14:48 | DVHPN2 ---
Subjective Overnight events noted. Patient was seen and evaluated by me. Patient's sugar refinery supervisor Gabi at bedside who was updated regarding the reports of bone scan and CT scans. Patient is currently scheduled for possibly IR biopsy of the axillary lymph node probably on Tuesday. Patient does have known history of chronic back pain with a paraplegia. Reviewed: Care Plan, H&P, Labs, Medications, Previous Orders, Radiology Changes from previous H/P or p: No Changes Cardiovascular: Chest Pain Objective Vitals Vital Signs Date Time Temp Pulse Resp B/P (MAP) Pulse Ox O2 Delivery O2 Flow Rate FiO2 04/13/25 14:36 81 17 107/72 04/13/25 12:56 99.1 93 99.1 04/13/25 08:00 Nasal Cannula* 2 28 Intake/Output Intake and Output 04/13/25 07:00 Intake Total 620 ml Balance 620 ml Intake Oral 420 ml IV Total 200 ml Exam HEENT pupils are reactive Neck is supple CV is S1-S2 regular rate and rhythm Respiratory diminished breath sounds bases GI positive bowel sound Extremity no edema [employer]OR [employer]IZATIONAL paraplegia General Appearance: Alert, Oriented X3, Cooperative, No acute distress Lungs: Clear to auscultation Cardiovascular: Regular rate Abdomen: Normal bowel sounds, Soft, No tenderness Neuro: Other (Paraplegia) Skin: Dry, Intact, Warm Medications Current Medications Medications Dose Ordered Sig/Margarito Route Start Time Stop Time Status Last Admin Dose Admin Piperacillin Sod/ Tazobactam Sod 100 ml @ 25 mls/hr Q12HR IV 04/05/25 22:00 04/13/25 09:03 25 MLS/HR Aspirin 81 mg DAILY PO 04/05/25 17:40 04/13/25 08:56 81 MG Atorvastatin Calcium 40 mg HS PO 04/05/25 22:00 04/12/25 21:16 40 MG Morphine Sulfate 2 mg Q30MP PRN IV 04/05/25 17:30 Acetaminophen 650 mg Q6HP PRN PO 04/05/25 17:30 Nitroglycerin 0.4 mg Q5MINP PRN SL 04/05/25 17:30 Ondansetron HCl 4 mg Q4HP PRN IV 04/05/25 17:30 04/13/25 11:14 4 MG Enoxaparin Sodium 30 mg DAILY SC 04/06/25 10:00 04/13/25 08:54 30 MG Multivit/Ca Carb/ B Cmplx/FA/Prenat 1 tab DAILY PO 04/06/25 10:00 04/13/25 08:56 1 TAB Clopidogrel Bisulfate 75 mg DAILY PO 04/06/25 10:00 04/13/25 08:55 75 MG Quetiapine Fumarate 100 mg DAILY PO 04/06/25 10:00 04/13/25 08:54 100 MG Patient Own Medication 3 cap HS PO 04/05/25 22:00 Levothyroxine Sodium 200 mcg QAM@0600 PO 04/06/25 06:00 04/13/25 06:55 200 MCG Sevelamer HCl 1,600 mg TIDWM PO 04/06/25 08:00 04/13/25 13:38 1,600 MG Hydromorphone HCl 0.5 mg Q4HPRN PRN IV 04/06/25 01:15 04/13/25 14:36 0.5 MG Pantoprazole Sodium 40 mg DAILY@0600 PO 04/07/25 06:00 04/13/25 06:55 40 MG Albuterol 2.5 mg Q6HPRN PRN NEB 04/06/25 10:30 04/13/25 11:18 2.5 MG Carisoprodol 350 mg TID PO 04/06/25 12:00 04/13/25 13:38 350 MG Carvedilol 12.5 mg Q12HR PO 04/08/25 22:00 04/13/25 08:54 12.5 MG Docusate Sodium 100 mg BID PRN PO 04/09/25 16:45 04/13/25 11:52 100 MG Ergocalciferol 50,000 unit Q7D PO 04/09/25 18:30 04/09/25 20:03 50,000 UNIT Nifedipine 90 mg DAILY PO 04/11/25 10:00 04/13/25 08:55 90 MG Hydralazine HCl 25 mg Q8HR PO 04/10/25 14:00 04/13/25 06:55 25 MG Patient Own Medication 1 BID [place] 04/10/25 22:00 04/12/25 15:00 1 Morphine Sulfate 15 mg Q12HR PO 04/10/25 22:00 04/13/25 11:14 15 MG Lactulose 30 ml BID PO 04/10/25 22:00 04/11/25 10:30 30 ML Epoetin Checo-epbx 4,000 unit MWF@2100 SC 04/12/25 21:00 04/12/25 21:15 4,000 UNIT Zirconium Oxide 10 gm DAILY PO 04/11/25 20:45 04/13/25 09:03 10 GM Guaifenesin/ Dextromethorphan 10 ml Q4HP PRN PO 04/12/25 14:00 Laboratory Results Laboratory Tests 04/13/25 04:40 Chemistry Test 04/13/25 04:40 Calcium Level 9.0 mg/dL (8.7-10.4) Microbiology Microbiology Date/Time Source Procedure Growth Status 04/05/25 23:15 Nose MRSA Screen - Final Methicillin Resistant S.aureus Complete 04/05/25 11:30 Blood Blood Culture - Final NO GROWTH AFTER 5 DAYS OF INCUBATION. Complete Assessment/Plan Assessment/Plan 70-year-old female with a known history of paraplegia since 2018 after back surgery, CAD, chronic respiratory failure on home O2, COPD, hypertension, congestive heart failure with a preserved ejection fraction, bipolar disorder, end-stage renal disease on hemodialysis on Tuesday presented to the hospital with a complaining of chest pain for last two weeks as well as chronic pain found to have 1. Relative hypotension with a history of hypertension, currently off of vasopressor 2. NSTEMI likely type 2 3. Coronary artery disease 4. Congestive heart failure with diastolic dysfunction currently compensated 5. Acute on chronic hypoxic respiratory failure secondary to COPD exacerbation and pneumonia 6. COPD exacerbation 7. Suspected pneumonia 8. Multiple lytic lesion in thoracic spine and humeral heads 9. Paraplegia 10. Chronic narcotic dependency 11. Acute on chronic back pain -continue pain meds as needed, keep NPO on Tuesday midnight for possible IR biopsy.- Plan of care discussed with the bedside RN as well as patient and patient's sugar refinery supervisor at bedside whose name is Gabi. Plan discussed with: Patient, Other (Patient's sugar refinery supervisor Gabi at bedside.) Date of Service: Apr 13, 2025 Billing Provider: OBDULIO MUNOZ MD Common Visit Codes: [id number] INP/OBS CARE(MOD) OBDULIO MUNOZ MD Apr 13, 2025 14:48
[2025-04-13] MEDS: SODIUM CHLORIDE 0.9% 250 ML IV ONE (17:40)
--- NOTE | 2025-04-13 17:40 | DVHPN2 ---
Progress Note - Dictate Date Seen: Apr 13, 2025 Medical Necessity Reason Pt with a Central, PICC or Fol: Yes (TUNNEL CATHETER) The following are medically ne: Central Line (HD catheter) Subjective Patient was seen and evaluated in follow up. Patient is complaining of 10/10 back pain. Patient is on 2 LPM NC. HGB 8.2, HCT 25.1, BUN 25, BAKERY DEMONSTRATOR 2.59. Telemetry reviewed. vital signs Vital Sign Date Time Temp Pulse Resp B/P (MAP) Pulse Ox O2 Delivery O2 Flow Rate FiO2 04/13/25 11:23 80 14 96 04/13/25 09:54 91/50 04/13/25 09:00 81.0 81.0 04/13/25 08:00 Nasal Cannula* 2 28 Total Intake and Output 04/12/25 04/12/25 04/13/25 15:00 23:00 07:00 Intake Total 420 ml 200 ml Balance 420 ml 200 ml medications Current Medications Medications Dose Ordered Sig/Margarito Route Start Time Stop Time Status Last Admin Dose Admin Piperacillin Sod/ Tazobactam Sod 100 ml @ 25 mls/hr Q12HR IV 04/05/25 22:00 04/13/25 09:03 25 MLS/HR Aspirin 81 mg DAILY PO 04/05/25 17:40 04/13/25 08:56 81 MG Atorvastatin Calcium 40 mg HS PO 04/05/25 22:00 04/12/25 21:16 40 MG Morphine Sulfate 2 mg Q30MP PRN IV 04/05/25 17:30 Acetaminophen 650 mg Q6HP PRN PO 04/05/25 17:30 Nitroglycerin 0.4 mg Q5MINP PRN SL 04/05/25 17:30 Ondansetron HCl 4 mg Q4HP PRN IV 04/05/25 17:30 04/13/25 11:14 4 MG Enoxaparin Sodium 30 mg DAILY SC 04/06/25 10:04/13/25 08:54 30 MG Multivit/Ca Carb/ B Cmplx/FA/Prenat 1 tab DAILY PO 04/06/25 10:00 04/13/25 08:56 1 TAB Clopidogrel Bisulfate 75 mg DAILY PO 04/06/25 10:00 04/13/25 08:55 75 MG Quetiapine Fumarate 100 mg DAILY PO 04/06/25 10:00 04/13/25 08:54 100 MG Patient Own Medication 3 cap HS PO 04/05/25 22:00 Levothyroxine Sodium 200 mcg QAM@0600 PO 04/06/25 06:00 04/13/25 06:55 200 MCG Sevelamer HCl 1,600 mg TIDWM PO 04/06/25 08:00 04/13/25 08:55 1,600 MG Hydromorphone HCl 0.5 mg Q4HPRN PRN IV 04/06/25 01:15 04/13/25 08:54 0.5 MG Pantoprazole Sodium 40 mg DAILY@0600 PO 04/07/25 06:00 04/13/25 06:55 40 MG Albuterol 2.5 mg Q6HPRN PRN NEB 04/06/25 10:30 04/13/25 11:18 2.5 MG Carisoprodol 350 mg TID PO 04/06/25 12:00 04/13/25 06:54 350 MG Carvedilol 12.5 mg Q12HR PO 04/08/25 22:00 04/13/25 08:54 12.5 MG Docusate Sodium 100 mg BID PRN PO 04/09/25 16:45 04/13/25 11:52 100 MG Ergocalciferol 50,000 unit Q7D PO 04/09/25 18:30 04/09/25 20:03 50,000 UNIT Nifedipine 90 mg DAILY PO 04/11/25 10:00 04/13/25 08:55 90 MG Hydralazine HCl 25 mg Q8HR PO 04/10/25 14:00 04/13/25 06:55 25 MG Patient Own Medication 1 BID OR 04/10/25 22:00 04/12/25 15:00 1 Morphine Sulfate 15 mg Q12HR PO 04/10/25 22:00 04/13/25 11:14 15 MG Lactulose 30 ml BID PO 04/10/25 22:00 04/11/25 10:30 30 ML Epoetin Checo-epbx 4,000 unit MWF@2100 SC 04/12/25 21:00 04/12/25 21:15 4,000 UNIT Zirconium Oxide 10 gm DAILY PO 04/11/25 20:45 04/13/25 09:03 10 GM Guaifenesin/ Dextromethorphan 10 ml Q4HP PRN PO 04/12/25 14:00 objective GENERAL: Alert and oriented x 3. No acute distress. Paraplegic. EYES: PERRL, EOMI. Anicteric. HENT: Moist mucous membranes. LUNGS: Clear to auscultation bilaterally. CARDIOVASCULAR: Regular rate and rhythm. ABDOMEN: Soft, nontender and nondistended. EXTREMITIES: No edema. NEUROLOGIC: No focal neurological deficits. SKIN: Wounds (Decubitus). laboratory and microbiology Laboratory Tests 04/13/25 04:40 Test 04/13/25 04:40 Range/Units Serum Glucose 75 74-106 mg/dL Problem List NSTEMI likely type 2. Anemia likely due to chronic renal failure. Cardiomegaly. Probable pneumonia. Elevated ALP. Hyponatremia. Hyperkalemia. Thrombocytopenia. Acute on chronic renal failure on dialysis (M/W/F). Acute hypoxic respiratory failure on supportive oxygen. 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 History of chronic fracture of the right inferior pubic ramus. History of paraplegia. History of CAD, patient denies and claims she does not have any stents in her heart. History of hypertension. History of COPD. History of CHF. History of bed-bound due to back surgery in 2018 for cyst removal. History of PR. History of bipolar disease. History of ventral umbilical hernia. History of tonsillectomy. History of hemorrhoids. History of I&D for decubitus ulcer. History of tobacco use. Assessment/Plan Continued all current supportive medical care. Aspirin, Plavix. Hydralazine. DVT and GI prophylactics. Dilaudid and Morphine for pain management. IV antibiotics as ordered. Additional plan as per the hospital course. Dietary Evaluation Review Recommendations by RD: Protein Supplementation Comments: 1) Add renal restriction to cardiac diet 2) Initiate Nepro qd 3) Encourage optimal PO intake 4) Follow-up with cardiology, pulmonology, and nephrology 5) Continue to monitor I&O, labs, and skin integrity Expected Outcomes/Goals: 1) appetite and labs to improve 2) wound to improve 3) f/u in 3-5 days Plan discussed with: Patient WENDY COREAS MD Apr 13, 2025 12:05
--- NOTE | 2025-04-13 19:01 | DVHPN2 ---
Progress Note - Dictate Date Seen: Apr 13, 2025 Medical Necessity Reason Pt with a Central, PICC or Fol: Yes vital signs Vital Sign Date Time Temp Pulse Resp B/P (MAP) Pulse Ox O2 Delivery O2 Flow Rate FiO2 04/13/25 18:53 81 100/48 (65) 04/13/25 15:06 16 04/13/25 12:56 99.1 93 99.1 04/13/25 08:00 Nasal Cannula* 2 28 Total Intake and Output 04/12/25 04/12/25 04/13/25 15:00 23:00 07:00 Intake Total 420 ml 200 ml Balance 420 ml 200 ml medications Current Medications Medications Dose Ordered Sig/Margarito Route Start Time Stop Time Status Last Admin Dose Admin Piperacillin Sod/ Tazobactam Sod 100 ml @ 25 mls/hr Q12HR IV 04/05/25 22:00 04/13/25 09:03 25 MLS/HR Aspirin 81 mg DAILY PO 04/05/25 17:40 04/13/25 08:56 81 MG Atorvastatin Calcium 40 mg HS PO 04/05/25 22:00 04/12/25 21:16 40 MG Morphine Sulfate 2 mg Q30MP PRN IV 04/05/25 17:30 Acetaminophen 650 mg Q6HP PRN PO 04/05/25 17:30 Nitroglycerin 0.4 mg Q5MINP PRN SL 04/05/25 17:30 Ondansetron HCl 4 mg Q4HP PRN IV 04/05/25 17:30 04/13/25 11:14 4 MG Enoxaparin Sodium 30 mg DAILY SC 04/06/25 10:00 04/13/25 08:54 30 MG Multivit/Ca Carb/ B Cmplx/FA/Prenat 1 tab DAILY PO 04/06/25 10:00 04/13/25 08:56 1 TAB Clopidogrel Bisulfate 75 mg DAILY PO 04/06/25 10:00 04/13/25 08:55 75 MG Quetiapine Fumarate 100 mg DAILY PO 04/06/25 10:00 04/13/25 08:54 100 MG Patient Own Medication 3 cap HS PO 04/05/25 22:00 Levothyroxine Sodium 200 mcg QAM@0600 PO 04/06/25 06:00 04/13/25 06:55 200 MCG Sevelamer HCl 1,600 mg TIDWM PO 04/06/25 08:00 04/13/25 13:38 1,600 MG Hydromorphone HCl 0.5 mg Q4HPRN PRN IV 04/06/25 01:15 04/13/25 14:36 0.5 MG Pantoprazole Sodium 40 mg DAILY@0600 PO 04/07/25 06:00 04/13/25 06:55 40 MG Albuterol 2.5 mg Q6HPRN PRN NEB 04/06/25 10:30 04/13/25 11:18 2.5 MG Carisoprodol 350 mg TID PO 04/06/25 12:00 04/13/25 13:38 350 MG Carvedilol 12.5 mg Q12HR PO 04/08/25 22:00 04/13/25 08:54 12.5 MG Docusate Sodium 100 mg BID PRN PO 04/09/25 16:45 04/13/25 11:52 100 MG Ergocalciferol 50,000 unit Q7D PO 04/09/25 18:30 04/09/25 20:03 50,000 UNIT Nifedipine 90 mg DAILY PO 04/11/25 10:00 04/13/25 08:55 90 MG Hydralazine HCl 25 mg Q8HR PO 04/10/25 14:00 Hold 04/13/25 06:55 25 MG Patient Own Medication 1 BID UT 04/10/25 22:00 04/12/25 15:00 1 Morphine Sulfate 15 mg Q12HR PO 04/10/25 22:00 04/13/25 11:14 15 MG Lactulose 30 ml BID PO 04/10/25 22:00 04/11/25 10:30 30 ML Epoetin Checo-epbx 4,000 unit MWF@2100 SC 04/12/25 21:00 04/12/25 21:15 4,000 UNIT Zirconium Oxide 10 gm DAILY PO 04/11/25 20:45 04/13/25 09:03 10 GM Guaifenesin/ Dextromethorphan 10 ml Q4HP PRN PO 04/12/25 14:00 Midodrine 5 mg TID@0600,1200,1800 PO 04/13/25 18:00 laboratory and microbiology Laboratory Tests 04/13/25 04:40 Test 04/13/25 04:40 Range/Units Serum Glucose 75 74-106 mg/dL Assessment/Plan Impression Acute hypoxemic respiratory failure Dependence on supplemental oxygen ESRD on HD NSTEMI COPD Patient seen and examined Events Low oxygen requirements On 3 liters nasal cannula No acute events Labs and imaging reviewed Management Supplemental oxygen Titrate to maintain sats 90% or above Incentive spirometry Continue antibiotics F/u cultures Bronchodilators Monitor renal function HD as per nephrology Management deferred Monitor electrolytes Supplement as needed F/u cardiology DVT prophylaxis Dietary Evaluation Review Recommendations by RD: Protein Supplementation Comments: 1) Add renal restriction to cardiac diet 2) Initiate Nepro qd 3) Encourage optimal PO intake 4) Follow-up with cardiology, pulmonology, and nephrology 5) Continue to monitor I&O, labs, and skin integrity Expected Outcomes/Goals: 1) appetite and labs to improve 2) wound to improve 3) f/u in 3-5 days Plan discussed with: Patient MILY GEORGE MD Apr 13, 2025 19:01
[2025-04-14] VITALS (11 sets, daily range): BP systolic 98–125; BP diastolic 48–64; PULSE 69–88; RESP 16–19; TEMP 97.6–98.4; O2SAT 84–100
[2025-04-14] MEDS: MIDODRINE HCL 10 MG TAB PO SCH (07:39)
--- NOTE | 2025-04-14 12:03 | DVHPN2 ---
Progress Note Date Seen: Apr 14, 2025 Medical Necessity Reason Pt with a Central, PICC or Fol: Yes (TUNNEL CATHETER) The following are medically ne: Central Line (HD catheter) Objective vital signs Vital Sign Date Time Temp Pulse Resp B/P (MAP) Pulse Ox O2 Delivery O2 Flow Rate FiO2 04/14/25 10:01 78 16 103/53 04/14/25 09:08 98.1 96 98.1 04/14/25 08:03 Nasal Cannula 2.0 04/14/25 08:03 28 Total Intake and Output 04/13/25 04/13/25 04/14/25 15:00 23:00 07:00 Intake Total 100 ml 368 ml 100 ml Output Total 0 ml 0 ml Balance 100 ml 368 ml 100 ml medications Current Medications Medications Dose Ordered Sig/Margarito Route Start Time Stop Time Status Last Admin Dose Admin Piperacillin Sod/ Tazobactam Sod 100 ml @ 25 mls/hr Q12HR IV 04/05/25 22:00 04/14/25 08:03 25 MLS/HR Aspirin 81 mg DAILY PO 04/05/25 17:40 04/14/25 08:06 81 MG Atorvastatin Calcium 40 mg HS PO 04/05/25 22:00 04/13/25 22:49 40 MG Morphine Sulfate 2 mg Q30MP PRN IV 04/05/25 17:30 Acetaminophen 650 mg Q6HP PRN PO 04/05/25 17:30 Nitroglycerin 0.4 mg Q5MINP PRN SL 04/05/25 17:30 Ondansetron HCl 4 mg Q4HP PRN IV 04/05/25 17:30 04/13/25 11:14 4 MG Enoxaparin Sodium 30 mg DAILY SC 04/06/25 10:00 04/14/25 08:12 30 MG Multivit/Ca Carb/ B Cmplx/FA/Prenat 1 tab DAILY PO 04/06/25 10:00 04/14/25 08:04 1 TAB Clopidogrel Bisulfate 75 mg DAILY PO 04/06/25 10:00 04/14/25 09:46 75 MG Quetiapine Fumarate 100 mg DAILY PO 04/06/25 10:00 04/14/25 08:06 100 MG Patient Own Medication 3 cap HS PO 04/05/25 22:00 Levothyroxine Sodium 200 mcg QAM@0600 PO 04/06/25 06:00 04/14/25 07:41 200 MCG Sevelamer HCl 1,600 mg TIDWM PO 04/06/25 08:00 04/14/25 11:59 1,600 MG Hydromorphone HCl 0.5 mg Q4HPRN PRN IV 04/06/25 01:15 04/14/25 09:31 0.5 MG Pantoprazole Sodium 40 mg DAILY@0600 PO 04/07/25 06:00 04/14/25 07:40 40 MG Albuterol 2.5 mg Q6HPRN PRN NEB 04/06/25 10:30 04/13/25 11:18 2.5 MG Carisoprodol 350 mg TID PO 04/06/25 12:00 04/14/25 07:41 350 MG Carvedilol 12.5 mg Q12HR PO 04/08/25 22:00 04/13/25 22:49 12.5 MG Docusate Sodium 100 mg BID PRN PO 04/09/25 16:45 04/13/25 11:52 100 MG Ergocalciferol 50,000 unit Q7D PO 04/09/25 18:30 04/09/25 20:03 50,000 UNIT Nifedipine 90 mg DAILY PO 04/11/25 10:00 04/13/25 08:55 90 MG Hydralazine HCl 25 mg Q8HR PO 04/10/25 14:00 Hold 04/13/25 06:55 25 MG Patient Own Medication 1 BID VA 04/10/25 22:00 04/12/25 15:00 1 Morphine Sulfate 15 mg Q12HR PO 04/10/25 22:00 04/14/25 08:06 15 MG Lactulose 30 ml BID PO 04/10/25 22:00 04/14/25 09:30 30 ML Epoetin Checo-epbx 4,000 unit MWF@2100 SC 04/12/25 21:00 04/12/25 21:15 4,000 UNIT Zirconium Oxide 10 gm DAILY PO 04/11/25 20:45 04/14/25 09:30 10 GM Guaifenesin/ Dextromethorphan 10 ml Q4HP PRN PO 04/12/25 14:00 Midodrine 5 mg TID@0600,1200,1800 PO 04/13/25 18:00 04/14/25 11:59 5 MG laboratory and microbiology Laboratory Tests 04/13/25 04:40 Test 04/13/25 04:40 Range/Units Serum Glucose 75 74-106 mg/dL Microbiology Date/Time Source Procedure Growth Status 04/05/25 23:15 Nose MRSA Screen - Final Methicillin Resistant S.aureus Complete 04/05/25 11:30 Blood Blood Culture - Final NO GROWTH AFTER 5 DAYS OF INCUBATION. 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 5) paraplegia Multifocal lytic lesions on CT scan concerning for metastatic disease recs HD tuesday Multifocal lytic lesions on CT scan concerning for metastatic disease--bone scan completed Plan discussed with: Patient Dietary Evaluation Review Recommendations by RD: Protein Supplementation Comments: 1) Add renal restriction to cardiac diet 2) Initiate Nepro qd 3) Encourage optimal PO intake 4) Follow-up with cardiology, pulmonology, and nephrology 5) Continue to monitor I&O, labs, and skin integrity Expected Outcomes/Goals: 1) appetite and labs to improve 2) wound to improve 3) f/u in 3-5 days HARPREET HAYES MD Apr 14, 2025 12:03
--- NOTE | 2025-04-14 15:33 | DVHPN2 ---
Progress Note - Dictate Date Seen: Apr 14, 2025 Medical Necessity Reason Pt with a Central, PICC or Fol: Yes (TUNNEL CATHETER) The following are medically ne: Central Line (HD catheter) vital signs Vital Sign Date Time Temp Pulse Resp B/P (MAP) Pulse Ox O2 Delivery O2 Flow Rate FiO2 04/14/25 13:43 87 14 113/56 04/14/25 12:30 98.2 96 98.2 04/14/25 08:03 Nasal Cannula 2.0 04/14/25 08:03 28 Total Intake and Output 04/13/25 04/13/25 04/14/25 15:00 23:00 07:00 Intake Total 100 ml 368 ml 100 ml Output Total 0 ml 0 ml Balance 100 ml 368 ml 100 ml medications Current Medications Medications Dose Ordered Sig/Margarito Route Start Time Stop Time Status Last Admin Dose Admin Piperacillin Sod/ Tazobactam Sod 100 ml @ 25 mls/hr Q12HR IV 04/05/25 22:00 04/14/25 08:03 25 MLS/HR Aspirin 81 mg DAILY PO 04/05/25 17:40 04/14/25 08:06 81 MG Atorvastatin Calcium 40 mg HS PO 04/05/25 22:00 04/13/25 22:49 40 MG Morphine Sulfate 2 mg Q30MP PRN IV 04/05/25 17:30 Acetaminophen 650 mg Q6HP PRN PO 04/05/25 17:30 Nitroglycerin 0.4 mg Q5MINP PRN SL 04/05/25 17:30 Ondansetron HCl 4 mg Q4HP PRN IV 04/05/25 17:30 04/13/25 11:14 4 MG Enoxaparin Sodium 30 mg DAILY SC 04/06/25 10:00 04/14/25 08:12 30 MG Multivit/Ca Carb/ B Cmplx/FA/Prenat 1 tab DAILY PO 04/06/25 10:00 04/14/25 08:04 1 TAB Clopidogrel Bisulfate 75 mg DAILY PO 04/06/25 10:00 04/14/25 09:46 75 MG Quetiapine Fumarate 100 mg DAILY PO 04/06/25 10:00 04/14/25 08:06 100 MG Patient Own Medication 3 cap HS PO 04/05/25 22:00 Levothyroxine Sodium 200 mcg QAM@0600 PO 04/06/25 06:00 04/14/25 07:41 200 MCG Sevelamer HCl 1,600 mg TIDWM PO 04/06/25 08:00 04/14/25 11:59 1,600 MG Hydromorphone HCl 0.5 mg Q4HPRN PRN IV 04/06/25 01:15 04/14/25 13:43 0.5 MG Pantoprazole Sodium 40 mg DAILY@0600 PO 04/07/25 06:00 04/14/25 07:40 40 MG Albuterol 2.5 mg Q6HPRN PRN NEB 04/06/25 10:30 04/13/25 11:18 2.5 MG Carisoprodol 350 mg TID PO 04/06/25 12:00 04/14/25 13:42 350 MG Carvedilol 12.5 mg Q12HR PO 04/08/25 22:00 04/13/25 22:49 12.5 MG Docusate Sodium 100 mg BID PRN PO 04/09/25 16:45 04/14/25 12:04 100 MG Ergocalciferol 50,000 unit Q7D PO 04/09/25 18:30 04/09/25 20:03 50,000 UNIT Nifedipine 90 mg DAILY PO 04/11/25 10:00 04/13/25 08:55 90 MG Hydralazine HCl 25 mg Q8HR PO 04/10/25 14:00 Hold 04/13/25 06:55 25 MG Patient Own Medication 1 BID NV 04/10/25 22:00 04/12/25 15:00 1 Morphine Sulfate 15 mg Q12HR PO 04/10/25 22:00 04/14/25 08:06 15 MG Lactulose 30 ml BID PO 04/10/25 22:00 04/14/25 09:30 30 ML Epoetin Checo-epbx 4,000 unit MWF@2100 SC 04/12/25 21:00 04/12/25 21:15 4,000 UNIT Zirconium Oxide 10 gm DAILY PO 04/11/25 20:45 04/14/25 09:30 10 GM Guaifenesin/ Dextromethorphan 10 ml Q4HP PRN PO 04/12/25 14:00 Midodrine 5 mg TID@0600,1200,1800 PO 04/13/25 18:00 04/14/25 11:59 5 MG laboratory and microbiology Laboratory Tests 04/13/25 04:40 Test 04/13/25 04:40 Range/Units Serum Glucose 75 74-106 mg/dL Assessment/Plan Impression Acute hypoxemic respiratory failure Dependence on supplemental oxygen ESRD on HD NSTEMI COPD Patient seen and examined Events Low oxygen requirements On 3 liters nasal cannula No distress Labs and imaging reviewed Management Supplemental oxygen Titrate to maintain sats 90% or above Incentive spirometry Continue antibiotics F/u cultures Bronchodilators Monitor renal function HD as per nephrology Management deferred Monitor electrolytes Supplement as needed F/u cardiology DVT prophylaxis Dietary Evaluation Review Recommendations by RD: Protein Supplementation Comments: 1) Add renal restriction to cardiac diet 2) Initiate Nepro qd 3) Encourage optimal PO intake 4) Follow-up with cardiology, pulmonology, and nephrology 5) Continue to monitor I&O, labs, and skin integrity Expected Outcomes/Goals: 1) appetite and labs to improve 2) wound to improve 3) f/u in 3-5 days Plan discussed with: Patient MILY GEORGE MD Apr 14, 2025 15:33
--- NOTE | 2025-04-14 15:34 | DVHPN2 ---
Subjective Overnight events noted. Patient was seen and evaluated by me. Patient's human resources safety manager Gabi at bedside who was updated regarding the reports of bone scan and CT scans. Patient is currently scheduled for possibly IR biopsy of the axillary lymph node probably on Tuesday. Patient does have known history of chronic back pain with a paraplegia. Reviewed: Care Plan, H&P, Labs, Medications, Previous Orders, Radiology Changes from previous H/P or p: No Changes Cardiovascular: Chest Pain Objective Vitals Vital Signs Date Time Temp Pulse Resp B/P (MAP) Pulse Ox O2 Delivery O2 Flow Rate FiO2 04/14/25 13:43 87 14 113/56 04/14/25 12:30 98.2 96 98.2 04/14/25 08:03 Nasal Cannula 2.0 04/14/25 08:03 28 Intake/Output Intake and Output 04/14/25 07:00 Intake Total 568 ml Output Total 0 ml Balance 568 ml Intake Oral 218 ml IV Total 350 ml Output Urine Total 0 ml Stool Total 0 ml Exam HEENT pupils are reactive Neck is supple CV is S1-S2 regular rate and rhythm Respiratory diminished breath sounds bases GI positive bowel sound Extremity no edema [employer] paraplegia General Appearance: Alert, Oriented X3, Cooperative, No acute distress Lungs: Clear to auscultation Cardiovascular: Regular rate Abdomen: Normal bowel sounds, Soft, No tenderness Neuro: Other (Paraplegia) Skin: Dry, Intact, Warm Medications Current Medications Medications Dose Ordered Sig/Margarito Route Start Time Stop Time Status Last Admin Dose Admin Piperacillin Sod/ Tazobactam Sod 100 ml @ 25 mls/hr Q12HR IV 04/05/25 22:00 04/14/25 08:03 25 MLS/HR Aspirin 81 mg DAILY PO 04/05/25 17:40 04/14/25 08:06 81 MG Atorvastatin Calcium 40 mg HS PO 04/05/25 22:00 04/13/25 22:49 40 MG Morphine Sulfate 2 mg Q30MP PRN IV 04/05/25 17:30 Acetaminophen 650 mg Q6HP PRN PO 04/05/25 17:30 Nitroglycerin 0.4 mg Q5MINP PRN SL 04/05/25 17:30 Ondansetron HCl 4 mg Q4HP PRN IV 04/05/25 17:30 04/13/25 11:14 4 MG Enoxaparin Sodium 30 mg DAILY SC 04/06/25 10:00 04/14/25 08:12 30 MG Multivit/Ca Carb/ B Cmplx/FA/Prenat 1 tab DAILY PO 04/06/25 10:00 04/14/25 08:04 1 TAB Clopidogrel Bisulfate 75 mg DAILY PO 04/06/25 10:00 04/14/25 09:46 75 MG Quetiapine Fumarate 100 mg DAILY PO 04/06/25 10:00 04/14/25 08:06 100 MG Patient Own Medication 3 cap HS PO 04/05/25 22:00 Levothyroxine Sodium 200 mcg QAM@0600 PO 04/06/25 06:00 04/14/25 07:41 200 MCG Sevelamer HCl 1,600 mg TIDWM PO 04/06/25 08:00 04/14/25 11:59 1,600 MG Hydromorphone HCl 0.5 mg Q4HPRN PRN IV 04/06/25 01:15 04/14/25 13:43 0.5 MG Pantoprazole Sodium 40 mg DAILY@0600 PO 04/07/25 06:00 04/14/25 07:40 40 MG Albuterol 2.5 mg Q6HPRN PRN NEB 04/06/25 10:30 04/13/25 11:18 2.5 MG Carisoprodol 350 mg TID PO 04/06/25 12:00 04/14/25 13:42 350 MG Carvedilol 12.5 mg Q12HR PO 04/08/25 22:00 04/13/25 22:49 12.5 MG Docusate Sodium 100 mg BID PRN PO 04/09/25 16:45 04/14/25 12:04 100 MG Ergocalciferol 50,000 unit Q7D PO 04/09/25 18:30 04/09/25 20:03 50,000 UNIT Nifedipine 90 mg DAILY PO 04/11/25 10:00 04/13/25 08:55 90 MG Hydralazine HCl 25 mg Q8HR PO 04/10/25 14:00 Hold 04/13/25 06:55 25 MG Patient Own Medication 1 BID NC 04/10/25 22:00 04/12/25 15:00 1 Morphine Sulfate 15 mg Q12HR PO 04/10/25 22:00 04/14/25 08:06 15 MG Lactulose 30 ml BID PO 04/10/25 22:00 04/14/25 09:30 30 ML Epoetin Checo-epbx 4,000 unit MWF@2100 SC 04/12/25 21:00 04/12/25 21:15 4,000 UNIT Zirconium Oxide 10 gm DAILY PO 04/11/25 20:45 04/14/25 09:30 10 GM Guaifenesin/ Dextromethorphan 10 ml Q4HP PRN PO 04/12/25 14:00 Midodrine 5 mg TID@0600,1200,1800 PO 04/13/25 18:00 04/14/25 11:59 5 MG Laboratory Results Laboratory Tests 04/13/25 04:40 Microbiology Microbiology Date/Time Source Procedure Growth Status 04/05/25 23:15 Nose MRSA Screen - Final Methicillin Resistant S.aureus Complete 04/05/25 11:30 Blood Blood Culture - Final NO GROWTH AFTER 5 DAYS OF INCUBATION. Complete Assessment/Plan Assessment/Plan 70-year-old female with a known history of paraplegia since 2018 after back surgery, CAD, chronic respiratory failure on home O2, COPD, hypertension, congestive heart failure with a preserved ejection fraction, bipolar disorder, end-stage renal disease on hemodialysis on Tuesday presented to the hospital with a complaining of chest pain for last two weeks as well as chronic pain found to have 1. Relative hypotension with a history of hypertension, currently off of vasopressor 2. NSTEMI likely type 2 3. Coronary artery disease 4. Congestive heart failure with diastolic dysfunction currently compensated 5. Acute on chronic hypoxic respiratory failure secondary to COPD exacerbation and pneumonia 6. COPD exacerbation 7. Suspected pneumonia 8. Multiple lytic lesion in thoracic spine and humeral heads 9. Paraplegia 10. Chronic narcotic dependency 11. Acute on chronic back pain -continue pain meds as needed, keep NPO on Tuesday midnight for possible IR biopsy.- Plan of care discussed with the bedside RN as well as patient and patient's human resources safety manager at bedside whose name is Gabi. Plan discussed with: Patient, Other (Patient's human resources safety manager Gabi.) Date of Service: Apr 14, 2025 Billing Provider: OBDULIO MUNOZ MD Common Visit Codes: [id number] INP/OBS CARE(MOD) OBDULIO MUNOZ MD Apr 14, 2025 15:34
[2025-04-14] MEDS: BISACODYL 10 MG RECT SUPP PR PRN (17:51)
[2025-04-14] MEDS: ALBUTEROL SULF 2.5 MG/0.5ML(0.5%) NEB SOLN ONE (21:19)
--- NOTE | 2025-04-14 23:53 | DVHPN2 ---
Progress Note - Dictate Date Seen: Apr 14, 2025 Medical Necessity Reason Pt with a Central, PICC or Fol: Yes (TUNNEL CATHETER) The following are medically ne: Central Line (HD catheter) Subjective Patient was seen and evaluated in follow up. Patient is stable on 2 LPM NC. Patient is complaining of 10/10 back pain. Patient is refusing turning/repositioning. Telemetry reviewed. vital signs Vital Sign Date Time Temp Pulse Resp B/P (MAP) Pulse Ox O2 Delivery O2 Flow Rate FiO2 04/14/25 13:43 87 14 113/56 04/14/25 12:30 98.2 96 98.2 04/14/25 08:03 Nasal Cannula 2.0 04/14/25 08:03 28 Total Intake and Output 04/13/25 04/13/25 04/14/25 15:00 23:00 07:00 Intake Total 100 ml 368 ml 100 ml Output Total 0 ml 0 ml Balance 100 ml 368 ml 100 ml medications Current Medications Medications Dose Ordered Sig/Margarito Route Start Time Stop Time Status Last Admin Dose Admin Piperacillin Sod/ Tazobactam Sod 100 ml @ 25 mls/hr Q12HR IV 04/05/25 22:00 04/14/25 08:03 25 MLS/HR Aspirin 81 mg DAILY PO 04/05/25 17:40 04/14/25 08:06 81 MG Atorvastatin Calcium 40 mg HS PO 04/05/25 22:00 04/13/25 22:49 40 MG Morphine Sulfate 2 mg Q30MP PRN IV 04/05/25 17:30 Acetaminophen 650 mg Q6HP PRN PO 04/05/25 17:30 Nitroglycerin 0.4 mg Q5MINP PRN SL 04/05/25 17:30 Ondansetron HCl 4 mg Q4HP PRN IV 04/05/25 17:30 04/13/25 11:14 4 MG Enoxaparin Sodium 30 mg DAILY SC 04/06/25 10:04/14/25 08:12 30 MG Multivit/Ca Carb/ B Cmplx/FA/Prenat 1 tab DAILY PO 04/06/25 10:00 04/14/25 08:04 1 TAB Clopidogrel Bisulfate 75 mg DAILY PO 04/06/25 10:00 04/14/25 09:46 75 MG Quetiapine Fumarate 100 mg DAILY PO 04/06/25 10:00 10/5/25 08:06 100 MG Patient Own Medication 3 cap HS PO 04/05/25 22:00 Levothyroxine Sodium 200 mcg QAM@0600 PO 04/06/25 06:00 04/14/25 07:41 200 MCG Sevelamer HCl 1,600 mg TIDWM PO 04/06/25 08:00 04/14/25 11:59 1,600 MG Hydromorphone HCl 0.5 mg Q4HPRN PRN IV 04/06/25 01:15 04/14/25 13:43 0.5 MG Pantoprazole Sodium 40 mg DAILY@0600 PO 04/07/25 06:00 04/14/25 07:40 40 MG Albuterol 2.5 mg Q6HPRN PRN NEB 04/06/25 10:30 04/13/25 11:18 2.5 MG Carisoprodol 350 mg TID PO 04/06/25 12:00 04/14/25 13:42 350 MG Carvedilol 12.5 mg Q12HR PO 04/08/25 22:00 04/13/25 22:49 12.5 MG Docusate Sodium 100 mg BID PRN PO 04/09/25 16:45 04/14/25 12:04 100 MG Ergocalciferol 50,000 unit Q7D PO 04/09/25 18:30 04/09/25 20:03 50,000 UNIT Nifedipine 90 mg DAILY PO 04/11/25 10:00 04/13/25 08:55 90 MG Hydralazine HCl 25 mg Q8HR PO 04/10/25 14:00 Hold 04/13/25 06:55 25 MG Patient Own Medication 1 BID NH 04/10/25 22:00 04/12/25 15:00 1 Morphine Sulfate 15 mg Q12HR PO 04/10/25 22:00 04/14/25 08:06 15 MG Lactulose 30 ml BID PO 04/10/25 22:00 04/14/25 09:30 30 ML Epoetin Checo-epbx 4,000 unit MWF@2100 SC 04/12/25 21:00 04/12/25 21:15 4,000 UNIT Zirconium Oxide 10 gm DAILY PO 04/11/25 20:45 04/14/25 09:30 10 GM Guaifenesin/ Dextromethorphan 10 ml Q4HP PRN PO 04/12/25 14:00 Midodrine 5 mg TID@0600,1200,1800 PO 04/13/25 18:00 04/14/25 11:59 5 MG objective GENERAL: Alert and oriented x 3. No acute distress. Paraplegic. EYES: PERRL, EOMI. Anicteric. HENT: Moist mucous membranes. LUNGS: Clear to auscultation bilaterally. CARDIOVASCULAR: Regular rate and rhythm. ABDOMEN: Soft, nontender and nondistended. EXTREMITIES: No edema. NEUROLOGIC: No focal neurological deficits. SKIN: Wounds (Decubitus). laboratory and microbiology Laboratory Tests 04/13/25 04:40 Test 04/13/25 04:40 Range/Units Serum Glucose 75 74-106 mg/dL Problem List NSTEMI likely type 2. Anemia likely due to chronic renal failure. Cardiomegaly. Probable pneumonia. Elevated ALP. Hyponatremia. Hyperkalemia. Thrombocytopenia. Acute on chronic renal failure on dialysis (M/W/F). Acute hypoxic respiratory failure on supportive oxygen. 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 History of chronic fracture of the right inferior pubic ramus. History of paraplegia. History of CAD, patient denies and claims she does not have any stents in her heart. History of hypertension. History of COPD. History of CHF. History of bed-bound due to back surgery in 2018 for cyst removal. History of [place]. History of bipolar disease. History of ventral umbilical hernia. History of tonsillectomy. History of hemorrhoids. History of I&D for decubitus ulcer. History of tobacco use. Assessment/Plan Continued all current supportive medical care. Aspirin, Lipitor, Plavix. Coreg, Nifedipine. DVT and GI prophylactics. Dilaudid and Morphine for pain management. Lactulose. IV antibiotics as ordered. Additional plan as per the hospital course. Dietary Evaluation Review Recommendations by RD: Protein Supplementation Comments: 1) Add renal restriction to cardiac diet 2) Initiate Nepro qd 3) Encourage optimal PO intake 4) Follow-up with cardiology, pulmonology, and nephrology 5) Continue to monitor I&O, labs, and skin integrity Expected Outcomes/Goals: 1) appetite and labs to improve 2) wound to improve 3) f/u in 3-5 days Plan discussed with: Patient WENDY COREAS MD Apr 14, 2025 13:49
[2025-04-15] VITALS (10 sets, daily range): BP systolic 113–142; BP diastolic 53–87; PULSE 62–102; RESP 16–20; TEMP 97.9–98.8; O2SAT 93–98
[2025-04-15] MEDS: SODIUM CHL 0.9% 1000 ML BAG XX ONE (07:00)
--- NOTE | 2025-04-15 08:36 | DVHPNRES ---
Progress Note Date Seen: Apr 15, 2025 Resident Creating Document: CHANDNI BREWSTER RESIDENT Medical Necessity Reason Pt with a Central, PICC or Fol: Yes (TUNNEL CATHETER) The following are medically ne: Central Line (HD catheter, right groin triple- lumen catheter) Subjective Review of Systems This is a 70-year-old female with past medical history of paraplegia since 2018 after surgery spine, CAD with no stent recent angiogram 3 months ago in [facility] reported normal, HTN, COPD on 2 L home oxygen, CHF with preserved ejection fraction, bed-bound since surgery 2017, bipolar disorder ESRD on hemodialysis Tuesday umbilical hernia, tonsillectomy, hemorrhoids, I and D on her decubitus ulcer sacral region present to ER with complaint of chest pain for 2 weeks which is getting worse before arriving to the hospital. Esterase pain was 9/10 intensity, sharp, intermitted, no aggravating or relieving factor. History of broken right hip 1 year ago and surgery done in [facility] but no prosthesis. Admission patient become hemodynamically unstable and started pressor. Off pressor on 04/07/2025. Past medical history: CAD, CHF, HTN, CA, COPD on 2 L home oxygen, bipolar disorder, ESRD, ventral umbilical hernia, hemorrhoid Past Surgical history: Tonsillectomy Family history cancer-mother with pacemaker and breast cancer, father with colon cancer Social history: X 0 smoker, quit 1 year ago, no ETOH use. Denies any illicit drug Family history lives with family, having caregivers 04/08/2025: Patient seen and evaluated in bedside. Patient complained left upper extremity pain associated with chest pain. No pain on rest but aggravated on movement. Labs for rheumatoid factor, uric acid level we will follow. Physical therapy during discharge. 04/09/2025: Patient seen and evaluated in bedside today. Patient left hand swelling is improving but chest pain on deep palpation. Colace and lactulose ordered for constipation, monitor for bowel movement. Patient currently on oxygen via nasal cannula. 04/10: Patient seen and evaluated in bedside today. Patient chest pain on palpation sternal area. Ordered for bone scan due to CT showed lytic bone lesion. Patient will be benefitted per physical therapy. 04/11: Patient seen and evaluated in bedside. Patient pain better in compared to yesterday switching morphine ER. Bone scan to rule out lytic lesion on CT chest ordered. Follow-up for bowel movement. Denies any fever, abdominal pain, headache. 04/12: Patient seen and evaluated in bedside today. Hemodialysis scheduled today. Patient chest pain is improving. Bone scan done yesterday and IR consulted biopsy right axillary lymph node. 04/15: Patient seen and evaluated in bedside today. Patient scheduled for dialysis and right axillary lymph node biopsy today. Patient having bowel movement yesterday and feeling better in compared to last few days. Objective vital signs Vital Sign Date Time Temp Pulse Resp B/P (MAP) Pulse Ox O2 Delivery O2 Flow Rate FiO2 04/15/25 05:00 98.3 93 17 115/55 (75) 98 98.3 04/14/25 21:20 Nasal Cannula 2.0 04/14/25 21:20 28 Total Intake and Output 04/14/25 04/14/25 04/15/25 15:00 23:00 07:00 Intake Total 100 ml 220 ml 0 ml Output Total 0 ml Balance 100 ml 220 ml 0 ml medications Current Medications Medications Dose Ordered Sig/Margarito Route Start Time Stop Time Status Last Admin Dose Admin Piperacillin Sod/ Tazobactam Sod 100 ml @ 25 mls/hr Q12HR IV 04/05/25 22:00 04/14/25 21:43 25 MLS/HR Aspirin 81 mg DAILY PO 04/05/25 17:40 04/14/25 08:06 81 MG Atorvastatin Calcium 40 mg HS PO 04/05/25 22:00 04/14/25 21:42 40 MG Acetaminophen 650 mg Q6HP PRN PO 04/05/25 17:30 Nitroglycerin 0.4 mg Q5MINP PRN SL 04/05/25 17:30 Ondansetron HCl 4 mg Q4HP PRN IV 04/05/25 17:30 04/14/25 19:39 4 MG Enoxaparin Sodium 30 mg DAILY SC 04/06/25 10:00 04/14/25 08:12 30 MG Multivit/Ca Carb/ B Cmplx/FA/Prenat 1 tab DAILY PO 04/06/25 10:00 04/14/25 08:04 1 TAB Clopidogrel Bisulfate 75 mg DAILY PO 04/06/25 10:00 04/14/25 09:46 75 MG Quetiapine Fumarate 100 mg DAILY PO 04/06/25 10:00 04/14/25 08:06 100 MG Patient Own Medication 3 cap HS PO 04/05/25 22:00 Levothyroxine Sodium 200 mcg QAM@0600 PO 04/06/25 06:00 04/15/25 06:46 200 MCG Sevelamer HCl 1,600 mg TIDWM PO 04/06/25 08:00 04/14/25 17:50 1,600 MG Pantoprazole Sodium 40 mg DAILY@0600 PO 04/07/25 06:00 04/15/25 06:45 40 MG Albuterol 2.5 mg Q6HPRN PRN NEB 04/06/25 10:30 04/14/25 21:23 2.5 MG Carisoprodol 350 mg TID PO 04/06/25 12:00 04/15/25 06:45 350 MG Carvedilol 12.5 mg Q12HR PO 04/08/25 22:00 04/13/25 22:49 12.5 MG Docusate Sodium 100 mg BID PRN PO 04/09/25 16:45 04/14/25 12:04 100 MG Ergocalciferol 50,000 unit Q7D PO 04/09/25 18:30 04/09/25 20:03 50,000 UNIT Nifedipine 90 mg DAILY PO 04/11/25 10:00 04/13/25 08:55 90 MG Hydralazine HCl 25 mg Q8HR PO 04/10/25 14:00 Hold 04/13/25 06:55 25 MG Patient Own Medication 1 BID IL 04/10/25 22:00 04/14/25 21:46 1 Morphine Sulfate 15 mg Q12HR PO 04/10/25 22:00 04/14/25 21:42 15 MG Lactulose 30 ml BID PO 04/10/25 22:00 04/14/25 09:30 30 ML Epoetin Checo-epbx 4,000 unit MWF@2100 SC 04/12/25 21:00 04/12/25 21:15 4,000 UNIT Zirconium Oxide 10 gm DAILY PO 04/11/25 20:45 04/14/25 09:30 10 GM Guaifenesin/ Dextromethorphan 10 ml Q4HP PRN PO 04/12/25 14:00 Midodrine 5 mg TID@0600,1200,1800 PO 04/13/25 18:00 04/15/25 06:44 5 MG Bisacodyl 10 mg DAILYP PRN IL 04/14/25 16:15 04/14/25 17:51 10 MG Examination Constitutional: Patient lying on bed. On nasal cannula 2 L oxygen ENT: No: Ear pain, Ear discharge, Nose pain, Nose discharge Respiratory: Bilateral equal entry at both lung, chest tender on deep palpation Cardiovascular: No: Chest Pain, Palpitations, Orthopnea, Paroxysmal Noc. Dyspnea, Edema, Gastrointestinal: Tender on deep palpation left lower quadrant, bowel sounds present Genitourinary: Suprapubic area and renal angle non tender on deep palpation Musculoskeletal: bed-bound, right hip and sternal area [id number] tender on deep palpation Skin: tunnel catheter on left side of the chest, right groin triple-lumen catheter Neurological: Paraplegia, decreased sensation lower extremity laboratory and microbiology Laboratory Tests 04/13/25 04:40 Test 04/13/25 04:40 Range/Units Serum Glucose 75 74-106 mg/dL Microbiology Date/Time Source Procedure Growth Status 04/05/25 23:15 Nose MRSA Screen - Final Methicillin Resistant S.aureus Complete 04/05/25 11:30 Blood Blood Culture - Final NO GROWTH AFTER 5 DAYS OF INCUBATION. Complete Problem List/Assessment/Plan Problem List/Assessment/Plan This is a 70-year-old female with past medical history of paraplegia since 2018 after surgery spine, CAD with no stent recent angiogram 3 months ago in [facility] reported normal, HTN, COPD on 2 L home oxygen, CHF with preserved ejection fraction, bed-bound since surgery 2017, bipolar disorder ESRD on hemodialysis Tuesday, umbilical hernia, tonsillectomy, hemorrhoids, I and D on her decubitus ulcer sacral region present to ER with complaint of chest pain for 2 weeks which is getting worse before arrived to the hospital. Chest pain was 9/10 intensity, sharp, intermitted, no aggravating or relieving factor. History of broken right hip 1 year ago and surgery done in [facility] but no prosthesis. Admission patient become hemodynamically unstable and started pressor. Off pressor on 04/07/2025. NEURO: Paraplegia since 2018 after surgery in the spine History of bed-bound due to back surgery in 2018 for cyst removal. * Off sedative or pressor * Bed-bound since 2018 * Plan: Physical therapy , fall precaution CARDIOVASCULAR: Hypotensive shock requiring pressor support Cardiomegaly. NSTEMI likely type 2 secondary to demand ischemia History of CAD, patient denies and claims she does not have any stents in her heart. History of CHF, CA Ascending thoracic aorta is moderately dilated, measuring 3.8 cm. Dyslipidemia * Trop 80s to 90s, on admission * EKG showed no ST-T changes * Septic Shock secondary to pneumonia * Likely heart failure with preserved ejection fraction * Echo on 04/06/2025 shows LVEF 65%, moderately dilated right ventricle and right atrium * Cardiology: Elevated Troponin - trending up, likely demand ischemia in setting of CPR, septic shock. EKG-no ST and T-wave abnormalities. * Plan Continue atorvastatin, aspirin, clopidogrel, nitroglycerin sublingual, nifedipine, hydralazine, carvedilol, lisinopril. * Monitor blood pressure PULMONARY: Acute hypoxic respiratory failure due to COPD exacerbation/pneumonia Bilateral pleural effusions Possible aspiration pneumonia Possible gram positive/Gram-negative pneumonia History of COPD with 2L home O2 History of tobacco use * CT chest on 04/09/2025: Trace bilateral pleural effusions with extensive adjacent atelectasis of the posterior bilateral lower lobes. * Plan: Stopped Zosyn on 04/15/2025, Continue breathing treatment with ipratropium and albuterol, Robitussin DM syrup. GASTROINTESTINAL: History of GERD History of ventral umbilical hernia. History of tonsillectomy. History of hemorrhoids. Sebaceous cyst abdominal wall Elevated ALP Chronic constipation likely due to bed-bound US soft tissue: 2x1x1 cm subcutaneous cystic mass which could be represent a sebaceous cyst. * Plan: :Continue Protonix , lactulose . GENITOURINARY: CKD on HD HD on Tuesday Nephrology consult appreciated Hyponatremia Hyperkalemia * CT on 04/09/2025: Marked bilateral renal atrophy and cortical scarring / thinning. * plan:Continue savelamer, hemodialysis. HEMATOLOGY: Questionable metastatic disease Anemia of chronic disease secondary to renal failure Thrombocytopenia * CT chest on 04/09/2025: Multifocal lytic lesions throughout the visualized axial and appendicular skeleton involving the vertebral bodies of the thoracic spine, bilateral humeral heads and bilateral concerning for metastatic disease. * Bone scan on 03/12/2025: Indeterminate diffuse increased activity in the calvarium, maxilla and mandible. This may be related to metastatic disease or metabolic process or Paget's disease. Few foci of increased activity in the right femur and right inferior pubic ramus. This may be related to metastatic disease or trauma. * Ferritin 831.3, iron 83, TIBC is 162, % saturation 26.5 on admission * Thrombocytopenia * Plan:cbc. METABOLIC: Hypothyroidism Vitamin D deficiency Hyperparathyroidism- secondary * PTH 4192.3 * Thyroid USG * THS 8.06, free T4 0.49 * Lactic acid 1.0 * Hemoglobin A1c 4.5 * Plan:Continue levothyroxine, vitamin D3, US thyriod. INFECTIOUS DISEASE: History of aspiration pneumonia Possible aspiration pneumonia Positive MRSA screen, mupirocin SIRS (Leukopenia and tachycardia) Right axillary lymphadenopathy/mass * Blood culture x2 negative * CRP 9.70 * ESR 50 * plan: Stopped Zosyn on 04/15/2025. * Biopsy right axillary lymph node by IR unable to do because of very small size.IR guided bone biopsy -pending. 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 History of chronic fracture of the right inferior pubic ramus. History of paraplegia. Gait instability Lytic bony lesion Questionable metastatic disease Possible Paget's disease of the bone * CT chest on 04/09/2025: Multifocal lytic lesions involving the vertebral bodies, bilateral humeral heads concerning for metastatic disease. * Bone scan on 04/13/2025: Indeterminate diffuse increased activity in the calvarium, maxilla and mandible, may be related to metastatic disease or metabolic process or Paget's disease. * Patient bed-bound since then * Uric acid level 4.1 * Rheumatoid factor<10 * Plan to continue pain management with morphine 15 mg ER every 8 hour and Dilaudid. * IR guided bone biopsy -pending. PSYCHIATRIC History of bipolar disorder Anxiety disorder * Plan continue alprazolam and quetiapine History of sacral ulcer History of I&D for decubitus ulcer. Sacral area healing scar tissue with no active discharge or signs symptoms of inflammation. DIET: Renal DVT prophylax: Lovenox GI prophylaxis: Protonix Bowel regimen: Lactulose and MiraLax. Code status: Full code. LINES/DRAINS/ACCESS: IV access: Left-sided tunneled catheter, right groin triple-lumen catheter. Drips: s/p Levophed, currently not on any drips DISPOSITION: Telemetry Patient's status discussed with patient daughter ,Maryam-over the phone, nurse. More than 23 minute spent with patient. Case discussed with Dr. Gill Plan discussed with: Patient, Daughter (maryam), Other My Orders My Orders Orders - CHANDNI BREWSTER Procedure Category Date Status Time Complete Blood Count LAB 04/15/25 Logged 07:56 Basic Metabolic Panel LAB 04/15/25 Logged 07:56 Dietary Evaluation Review Recommendations by RD: Protein Supplementation Comments: 1) Add renal restriction to cardiac diet 2) Initiate Nepro qd 3) Encourage optimal PO intake 4) Follow-up with cardiology, pulmonology, and nephrology 5) Continue to monitor I&O, labs, and skin integrity Expected Outcomes/Goals: 1) appetite and labs to improve 2) wound to improve 3) f/u in 3-5 days Date of Service: Apr 15, 2025 Billing Provider: LUANNE GILL MD Common Visit Codes: [id number] INP/OBS CARE(HIGH) Secondary Visit Codes: [id number] CARE PLAN 30 MINUTES CHANDNI BREWSTER Apr 15, 2025 08:36 LUANNE GILL MD Apr 16, 2025 15:55
[2025-04-15] MEDS: HYDROmorphone HCL 2 MG/ML VL/or syr IV PRN ×2 (11:12→15:19)
--- NOTE | 2025-04-15 11:34 | DVHPN2 ---
Progress Note Date Seen: Apr 15, 2025 Medical Necessity Reason Pt with a Central, PICC or Fol: Yes (TUNNEL CATHETER) The following are medically ne: Central Line (HD catheter, right groin triple- lumen catheter) Subjective Review of Systems: RESPIRATORY:Abnormal Other Systems: Patient seen and examined by myself today in follow-up Patient examined hemodialysis, blood pressure stable Objective vital signs Vital Sign Date Time Temp Pulse Resp B/P (MAP) Pulse Ox O2 Delivery O2 Flow Rate FiO2 04/15/25 11:12 71 20 140/78 04/15/25 08:53 93 Nasal Cannula* 2 28 04/15/25 05:00 98.3 98.3 Total Intake and Output 04/14/25 04/14/25 04/15/25 15:00 23:00 07:00 Intake Total 100 ml 220 ml 0 ml Output Total 0 ml Balance 100 ml 220 ml 0 ml medications Current Medications Medications Dose Ordered Sig/Margarito Route Start Time Stop Time Status Last Admin Dose Admin Piperacillin Sod/ Tazobactam Sod 100 ml @ 25 mls/hr Q12HR IV 04/05/25 22:00 04/15/25 09:45 25 MLS/HR Aspirin 81 mg DAILY PO 04/05/25 17:40 04/14/25 08:06 81 MG Atorvastatin Calcium 40 mg HS PO 04/05/25 22:00 04/14/25 21:42 40 MG Acetaminophen 650 mg Q6HP PRN PO 04/05/25 17:30 Nitroglycerin 0.4 mg Q5MINP PRN SL 04/05/25 17:30 Ondansetron HCl 4 mg Q4HP PRN IV 04/05/25 17:30 04/14/25 19:39 4 MG Enoxaparin Sodium 30 mg DAILY SC 04/06/25 10:00 04/14/25 08:12 30 MG Multivit/Ca Carb/ B Cmplx/FA/Prenat 1 tab DAILY PO 04/06/25 10:00 04/14/25 08:04 1 TAB Clopidogrel Bisulfate 75 mg DAILY PO 04/06/25 10:00 04/14/25 09:46 75 MG Quetiapine Fumarate 100 mg DAILY PO 04/06/25 10:00 04/14/25 08:06 100 MG Patient Own Medication 3 cap HS PO 04/05/25 22:00 Levothyroxine Sodium 200 mcg QAM@0600 PO 04/06/25 06:00 04/15/25 06:46 200 MCG Sevelamer HCl 1,600 mg TIDWM PO 04/06/25 08:00 04/14/25 17:50 1,600 MG Pantoprazole Sodium 40 mg DAILY@0600 PO 04/07/25 06:00 04/15/25 06:45 40 MG Albuterol 2.5 mg Q6HPRN PRN NEB 04/06/25 10:30 04/14/25 21:23 2.5 MG Carisoprodol 350 mg TID PO 04/06/25 12:00 04/15/25 06:45 350 MG Carvedilol 12.5 mg Q12HR PO 04/08/25 22:00 04/13/25 22:49 12.5 MG Docusate Sodium 100 mg BID PRN PO 04/09/25 16:45 04/14/25 12:04 100 MG Ergocalciferol 50,000 unit Q7D PO 04/09/25 18:30 04/09/25 20:03 50,000 UNIT Hydralazine HCl 25 mg Q8HR PO 04/10/25 14:00 Hold 04/13/25 06:55 25 MG Patient Own Medication 1 BID DE 04/10/25 22:00 04/15/25 09:53 1 Morphine Sulfate 15 mg Q12HR PO 04/10/25 22:00 04/15/25 09:44 15 MG Lactulose 30 ml BID PO 04/10/25 22:00 04/14/25 09:30 30 ML Epoetin Checo-epbx 4,000 unit MWF@2100 MO 04/12/25 21:00 04/12/25 21:15 4,000 UNIT Zirconium Oxide 10 gm DAILY PO 04/11/25 20:45 04/14/25 09:30 10 GM Bisacodyl 10 mg DAILYP PRN DE 04/14/25 16:15 04/14/25 17:51 10 MG Nifedipine 60 mg DAILY PO 04/15/25 09:00 Hydromorphone HCl 0.5 mg Q6HP PRN IV 04/15/25 09:30 04/15/25 11:12 0.5 MG Examination: LUNGS:Normal, CVS:Normal, MSK:Normal laboratory and microbiology Laboratory Tests 04/13/25 04:40 Test 04/13/25 04:40 Range/Units Serum Glucose 75 74-106 mg/dL Microbiology Date/Time Source Procedure Growth Status 04/05/25 23:15 Nose MRSA Screen - Final Methicillin Resistant S.aureus Complete 04/05/25 11:30 Blood Blood Culture - Final NO GROWTH AFTER 5 DAYS OF INCUBATION. Complete Problem List/Assessment/Plan Problem List/Assessment/Plan ESRD on dialysis Acute on chronic respiratory failure Acute on chronic diastolic Congestive heart failure NSTEMI Paraplegia Multifocal lytic lesions on CT scan concerning for metastatic disease Anemia of chronic kidney disease Recommendations Continue with UF 2 L as tolerated Epogen 86176 subQ 3 times weekly Strict I&Os Renal diet Cardiology consult Noted plan for bone biopsy We will continue to follow Total care time 35 minutes Plan discussed with: Patient Dietary Evaluation Review Recommendations by RD: Protein Supplementation Comments: 1) Add renal restriction to cardiac diet 2) Initiate Nepro qd 3) Encourage optimal PO intake 4) Follow-up with cardiology, pulmonology, and nephrology 5) Continue to monitor I&O, labs, and skin integrity Expected Outcomes/Goals: 1) appetite and labs to improve 2) wound to improve 3) f/u in 3-5 days DANNY BIGGS MD Apr 15, 2025 11:34
[2025-04-15 12:22] LABS: Hematocrit 25.1 % (36.0-46.0); Hemoglobin 8.1 g/dL (12.2-16.2); Mean Corpuscular Hemoglobin 31.6 pg (28.0-32.0); Mean Corpuscular Volume 98.4 fL (80.0-100.0); Nucleated Red Blood Cells % 0.0 %
[2025-04-15 12:32] LABS: Sodium 139 mmol/L (136-145)
[2025-04-15 12:33] LABS: Anion Gap 11 (5-15); Carbon Dioxide 30 mmol/L (20-31); Chloride 98 mmol/L (98-107); Potassium 5.5 mmol/L (3.5-5.1)
[2025-04-15 12:34] LABS: Calcium 8.6 mg/dL (8.7-10.4)
[2025-04-15 12:38] LABS: BUN/Creatinine Ratio 11.3 (10.0-20.0); Glucose 78 mg/dL (74-106)
[2025-04-15 12:39] LABS: Blood Urea Nitrogen 47 mg/dL (9-23)
--- NOTE | 2025-04-15 21:30 | DVH ---
ULTRASOUND SOFT TISSUE HEAD AND NECK CLINICAL INDICATION: Increased PTH.R/O Parathyroid tumor. TECHNIQUE: Multiple real time sonographic images of the thyroid were obtained. COMPARISON: Prior exam dated NONE FINDINGS: RIGHT LOBE OF THE THYROID: Measures 2.32 BY 1.09 X 1.44 cm. There are no nodules or cysts. Thyroid parenchyma appears homogeneous LEFT LOBE OF THE THYROID: Measures approximately 1.46 X 0.94 X 0.97 cm. ISTHMUS: Measures 0.11 cm. IMPRESSION: 1. Normal Thyroid. [employer] TI-RADS Categories and Recommendations (2017): TR1: 0 points, Benign, No FNA TR2: 2 points, Not suspicious, No FNA TR3: 3 points, Mildly suspicious, FNA if > or = 2.5 cm, Follow if > or = 1.5 cm TR4: 4-6 points, Moderately Suspicious, FNA if > or = 1.5 cm, Follow if > or = 1.0 cm TR5: 7+ points, Highly Suspicious, FNA if > or = 1.0 cm, Follow if > or = 0.5 cm Follow-up ultrasound guidelines: TR5: yearly for 5 years, if no growth or change in TI-RADS level TR4: at 1, 2, 3 and 5 years, if no growth or change in TI-RADS level TR3: at 1, 3 and 5 years, if no growth or change in TI-RADS level If increased but below threshold for FNA, repeat in one year. Source: ACR Thyroid Imaging, Reporting and Data System (TI-RADS): White Paper of the ACR TI-RADS Committee. Yanely et al., J Am Myles Radiol 2017;14:587-595.
[2025-04-15] MEDS: MORPHINE SULF 15mg ER tab PO SCH (21:40)
--- NOTE | 2025-04-15 23:18 | DVHPN2 ---
Progress Note - Dictate Date Seen: Apr 15, 2025 Medical Necessity Reason Pt with a Central, PICC or Fol: Yes Subjective Patient was seen and evaluated in follow up. No overnight events. Patient is on 2 LPM NC. Patient scheduled for dialysis and right axillary lymph node biopsy today. Telemetry reviewed. vital signs Vital Sign Date Time Temp Pulse Resp B/P (MAP) Pulse Ox O2 Delivery O2 Flow Rate FiO2 04/15/25 21:41 87 113/59 04/15/25 21:00 98.2 19 97 98.2 04/15/25 20:05 2.0 28 04/15/25 20:05 Nasal Cannula Total Intake and Output 04/14/25 04/14/25 04/15/25 15:00 23:00 07:00 Intake Total 100 ml 220 ml 0 ml Output Total 0 ml Balance 100 ml 220 ml 0 ml medications Current Medications Medications Dose Ordered Sig/Margarito Route Start Time Stop Time Status Last Admin Dose Admin Aspirin 81 mg DAILY PO 04/05/25 17:40 04/15/25 14:17 81 MG Atorvastatin Calcium 40 mg HS PO 04/05/25 22:00 04/15/25 21:41 40 MG Acetaminophen 650 mg Q6HP PRN PO 04/05/25 17:30 Nitroglycerin 0.4 mg Q5MINP PRN SL 04/05/25 17:30 Ondansetron HCl 4 mg Q4HP PRN IV 04/05/25 17:30 04/14/25 19:39 4 MG Enoxaparin Sodium 30 mg DAILY SC 04/06/25 10:00 04/14/25 08:12 30 MG Multivit/Ca Carb/ B Cmplx/FA/Prenat 1 tab DAILY PO 04/06/25 10:00 04/14/25 08:04 1 TAB Clopidogrel Bisulfate 75 mg DAILY PO 04/06/25 10:00 04/15/25 14:17 75 MG Quetiapine Fumarate 100 mg DAILY PO 04/06/25 10:00 04/14/25 08:06 100 MG Patient Own Medication 3 cap HS PO 04/05/25 22:00 Levothyroxine Sodium 200 mcg QAM@0600 PO 04/06/25 06:00 04/15/25 06:46 200 MCG Sevelamer HCl 1,600 mg TIDWM PO 04/06/25 08:00 04/15/25 18:09 1,600 MG Pantoprazole Sodium 40 mg DAILY@0600 PO 04/07/25 06:00 04/15/25 06:45 40 MG Albuterol 2.5 mg Q6HPRN PRN NEB 04/06/25 10:30 04/14/25 21:23 2.5 MG Carisoprodol 350 mg TID PO 04/06/25 12:00 04/15/25 21:41 350 MG Carvedilol 12.5 mg Q12HR PO 04/08/25 22:00 04/15/25 21:41 12.5 MG Docusate Sodium 100 mg BID PRN PO 04/09/25 16:45 04/14/25 12:04 100 MG Ergocalciferol 50,000 unit Q7D PO 04/09/25 18:30 04/09/25 20:03 50,000 UNIT Hydralazine HCl 25 mg Q8HR PO 04/10/25 14:00 Hold 04/13/25 06:55 25 MG Patient Own Medication 1 BID MO 04/10/25 22:00 04/15/25 09:53 1 Lactulose 30 ml BID PO 04/10/25 22:00 04/14/25 09:30 30 ML Epoetin Checo-epbx 4,000 unit MWF@2100 FL 04/12/25 21:00 04/15/25 21:39 4,000 UNIT Zirconium Oxide 10 gm DAILY PO 04/11/25 20:45 04/14/25 09:30 10 GM Bisacodyl 10 mg DAILYP PRN MO 04/14/25 16:15 04/14/25 17:51 10 MG Nifedipine 60 mg DAILY PO 04/15/25 09:00 Hydromorphone HCl 0.5 mg Q4HP PRN IV 04/15/25 15:00 04/15/25 18:53 0.5 MG Morphine Sulfate 15 mg Q8HR PO 04/15/25 22:00 04/15/25 21:40 15 MG Polyethylene Glycol 17 gm DAILY PO 04/16/25 10:00 objective GENERAL: Alert and oriented x 3. No acute distress. Paraplegic. EYES: PERRL, EOMI. Anicteric. HENT: Moist mucous membranes. LUNGS: Clear to auscultation bilaterally. CARDIOVASCULAR: Regular rate and rhythm. ABDOMEN: Soft, nontender and nondistended. EXTREMITIES: No edema. NEUROLOGIC: No focal neurological deficits. SKIN: Wounds (Decubitus). laboratory and microbiology Laboratory Tests 04/15/25 11:55 Test 04/15/25 11:55 Range/Units Serum Glucose 78 74-106 mg/dL Problem List NSTEMI likely type 2. Anemia likely due to chronic renal failure. Cardiomegaly. Probable pneumonia. Elevated ALP. Hyponatremia. Hyperkalemia. Thrombocytopenia. Acute on chronic renal failure on dialysis (M/W/F). Acute hypoxic respiratory failure on supportive oxygen. 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 History of chronic fracture of the right inferior pubic ramus. History of paraplegia. History of CAD, patient denies and claims she does not have any stents in her heart. History of hypertension. History of COPD. History of CHF. History of bed-bound due to back surgery in 2018 for cyst removal. History of [facility]. History of bipolar disease. History of ventral umbilical hernia. History of tonsillectomy. History of hemorrhoids. History of I&D for decubitus ulcer. History of tobacco use. Assessment/Plan Continued all current supportive medical care. Aspirin, Lipitor, Plavix. Coreg, Nifedipine. DVT and GI prophylactics. Dilaudid and Morphine for pain management. Lactulose. IV antibiotics as ordered. Additional plan as per the hospital course. Dietary Evaluation Review Recommendations by RD: Protein Supplementation Comments: 1) Add renal restriction to cardiac diet 2) Initiate Nepro qd 3) Encourage optimal PO intake 4) Follow-up with cardiology, pulmonology, and nephrology 5) Continue to monitor I&O, labs, and skin integrity Expected Outcomes/Goals: 1) appetite and labs to improve 2) wound to improve 3) f/u in 3-5 days Plan discussed with: Patient WENDY COREAS MD Apr 15, 2025 23:18
[2025-04-16] VITALS (11 sets, daily range): BP systolic 104–149; BP diastolic 52–75; PULSE 68–89; RESP 17–20; TEMP 97.5–98.2; O2SAT 95–100
[2025-04-16 07:04] LABS: Hemoglobin 8.4 g/dL (12.2-16.2)
[2025-04-16 07:07] LABS: Hematocrit 26.2 % (36.0-46.0); Mean Corpuscular Hemoglobin 32.2 pg (28.0-32.0); Mean Corpuscular Volume 100.2 fL (80.0-100.0)
[2025-04-16 07:15] LABS: Calcium 9.2 mg/dL (8.7-10.4); Potassium 4.4 mmol/L (3.5-5.1); Sodium 137 mmol/L (136-145)
[2025-04-16 07:16] LABS: Anion Gap 11 (5-15); Carbon Dioxide 30 mmol/L (20-31)
[2025-04-16 07:18] LABS: Chloride 96 mmol/L (98-107)
[2025-04-16 07:21] LABS: BUN/Creatinine Ratio 7.6 (10.0-20.0); Blood Urea Nitrogen 20 mg/dL (9-23)
[2025-04-16 07:23] LABS: Glucose 64 mg/dL (74-106)
[2025-04-16 07:49] LABS: Total Cells Counted 100.0 (100)
[2025-04-16] MEDS: POLYETHYLENE GLYCOL 17 GM PWDR PO SCH (10:00)
--- NOTE | 2025-04-16 11:24 | DVHPN2 ---
Progress Note Date Seen: Apr 16, 2025 Medical Necessity Reason Pt with a Central, PICC or Fol: Yes Subjective Review of Systems: MSK:Abnormal Other Systems: Patient seen and examined by myself today in follow-up Objective vital signs Vital Sign Date Time Temp Pulse Resp B/P (MAP) Pulse Ox O2 Delivery O2 Flow Rate FiO2 04/16/25 10:10 98 Nasal Cannula* 2 28 04/16/25 09:35 85 138/75 04/16/25 09:32 18 04/16/25 05:00 98.2 98.2 Total Intake and Output 04/15/25 04/15/25 04/16/25 15:00 23:00 07:00 Intake Total 100 ml 350 ml 140 ml Balance 100 ml 350 ml 140 ml medications Current Medications Medications Dose Ordered Sig/Margarito Route Start Time Stop Time Status Last Admin Dose Admin Aspirin 81 mg DAILY PO 04/05/25 17:40 04/16/25 09:35 81 MG Atorvastatin Calcium 40 mg HS PO 04/05/25 22:00 04/15/25 21:41 40 MG Acetaminophen 650 mg Q6HP PRN PO 04/05/25 17:30 Nitroglycerin 0.4 mg Q5MINP PRN SL 04/05/25 17:30 Ondansetron HCl 4 mg Q4HP PRN IV 04/05/25 17:30 04/14/25 19:39 4 MG Enoxaparin Sodium 30 mg DAILY SC 04/06/25 10:00 04/16/25 09:35 30 MG Multivit/Ca Carb/ B Cmplx/FA/Prenat 1 tab DAILY PO 04/06/25 10:00 04/16/25 09:31 1 TAB Clopidogrel Bisulfate 75 mg DAILY PO 04/06/25 10:00 04/16/25 09:31 75 MG Quetiapine Fumarate 100 mg DAILY PO 04/06/25 10:00 04/16/25 09:31 100 MG Patient Own Medication 3 cap HS PO 04/05/25 22:00 Levothyroxine Sodium 200 mcg QAM@0600 PO 04/06/25 06:00 04/16/25 06:57 200 MCG Sevelamer HCl 1,600 mg TIDWM PO 04/06/25 08:00 04/16/25 09:33 1,600 MG Pantoprazole Sodium 40 mg DAILY@0600 PO 04/07/25 06:00 04/16/25 06:56 40 MG Albuterol 2.5 mg Q6HPRN PRN NEB 04/06/25 10:30 04/14/25 21:23 2.5 MG Carisoprodol 350 mg TID PO 04/06/25 12:00 04/16/25 06:56 350 MG Carvedilol 12.5 mg Q12HR PO 04/08/25 22:00 04/16/25 09:35 12.5 MG Docusate Sodium 100 mg BID PRN PO 04/09/25 16:45 04/14/25 12:04 100 MG Ergocalciferol 50,000 unit Q7D PO 04/09/25 18:30 04/09/25 20:03 50,000 UNIT Hydralazine HCl 25 mg Q8HR PO 04/10/25 14:00 Hold 04/13/25 06:55 25 MG Patient Own Medication 1 BID SC 04/10/25 22:00 04/15/25 09:53 1 Lactulose 30 ml BID PO 04/10/25 22:00 04/14/25 09:30 30 ML Epoetin Checo-epbx 4,000 unit MWF@2100 LA 04/12/25 21:00 04/15/25 21:39 4,000 UNIT Zirconium Oxide 10 gm DAILY PO 04/11/25 20:45 04/16/25 09:29 10 GM Bisacodyl 10 mg DAILYP PRN SC 04/14/25 16:15 04/14/25 17:51 10 MG Nifedipine 60 mg DAILY PO 04/15/25 09:00 04/16/25 09:30 60 MG Hydromorphone HCl 0.5 mg Q4HP PRN IV 04/15/25 15:00 04/16/25 09:02 0.5 MG Morphine Sulfate 15 mg Q8HR PO 04/15/25 22:00 04/16/25 06:57 15 MG Polyethylene Glycol 17 gm DAILY PO 04/16/25 10:00 Examination: LUNGS:Normal, CVS:Normal, MSK:Normal laboratory and microbiology Laboratory Tests 04/16/25 05:48 Test 04/16/25 05:48 Range/Units Serum Glucose 64 L 74-106 mg/dL Microbiology Date/Time Source Procedure Growth Status 04/05/25 23:15 Nose MRSA Screen - Final Methicillin Resistant S.aureus Complete 04/05/25 11:30 Blood Blood Culture - Final NO GROWTH AFTER 5 DAYS OF INCUBATION. Complete Problem List/Assessment/Plan Problem List/Assessment/Plan ESRD on dialysis Acute on chronic respiratory failure Acute on chronic diastolic Congestive heart failure NSTEMI Paraplegia Multifocal lytic lesions on CT scan concerning for metastatic disease Anemia of chronic kidney disease Severe hyperparathyroidism, PTH more than 4000 Recommendations Hemodialysis tomorrow Epogen [id number] subQ 3 times weekly Strict I&Os Renal diet Cardiology consult Noted plan for bone biopsy Surgery consult for parathyroidectomy We will continue to follow Total care time 35 minutes Plan discussed with: Patient Dietary Evaluation Review Recommendations by RD: Protein Supplementation Comments: 1) Add renal restriction to cardiac diet 2) Initiate Nepro qd 3) Encourage optimal PO intake 4) Follow-up with cardiology, pulmonology, and nephrology 5) Continue to monitor I&O, labs, and skin integrity Expected Outcomes/Goals: 1) appetite and labs to improve 2) wound to improve 3) f/u in 3-5 days DANNY BIGGS MD Apr 16, 2025 11:24
--- NOTE | 2025-04-16 13:21 | DVHPNRES ---
Progress Note Date Seen: Apr 16, 2025 Resident Creating Document: CHANDNI BREWSTER RESIDENT Medical Necessity Reason Pt with a Central, PICC or Fol: Yes Subjective Review of Systems This is a 70-year-old female with past medical history of paraplegia since 2018 after surgery spine, CAD with no stent recent angiogram 3 months ago in [facility] reported normal, HTN, COPD on 2 L home oxygen, CHF with preserved ejection fraction, bed-bound since surgery 2017, bipolar disorder ESRD on hemodialysis Tuesday umbilical hernia, tonsillectomy, hemorrhoids, I and D on her decubitus ulcer sacral region present to ER with complaint of chest pain for 2 weeks which is getting worse before arriving to the hospital. Esterase pain was 9/10 intensity, sharp, intermitted, no aggravating or relieving factor. History of broken right hip 1 year ago and surgery done in [facility] but no prosthesis. Admission patient become hemodynamically unstable and started pressor. Off pressor on 04/07/2025. Past medical history: CAD, CHF, HTN, [place], COPD on 2 L home oxygen, bipolar disorder, ESRD, ventral umbilical hernia, hemorrhoid Past Surgical history: Tonsillectomy Family history cancer-mother with pacemaker and breast cancer, father with colon cancer Social history: X 0 smoker, quit 1 year ago, no ETOH use. Denies any illicit drug Family history lives with family, having caregivers 04/08/2025: Patient seen and evaluated in bedside. Patient complained left upper extremity pain associated with chest pain. No pain on rest but aggravated on movement. Labs for rheumatoid factor, uric acid level we will follow. Physical therapy during discharge. 04/09/2025: Patient seen and evaluated in bedside today. Patient left hand swelling is improving but chest pain on deep palpation. Colace and lactulose ordered for constipation, monitor for bowel movement. Patient currently on oxygen via nasal cannula. 04/10: Patient seen and evaluated in bedside today. Patient chest pain on palpation sternal area. Ordered for bone scan due to CT showed lytic bone lesion. Patient will be benefitted per physical therapy. 04/11: Patient seen and evaluated in bedside. Patient pain better in compared to yesterday switching morphine ER. Bone scan to rule out lytic lesion on CT chest ordered. Follow-up for bowel movement. Denies any fever, abdominal pain, headache. 04/12: Patient seen and evaluated in bedside today. Hemodialysis scheduled today. Patient chest pain is improving. Bone scan done yesterday and IR consulted biopsy right axillary lymph node. 04/15: Patient seen and evaluated in bedside today. Patient scheduled for dialysis and right axillary lymph node biopsy today. Patient having bowel movement yesterday and feeling better in compared to last few days. 04/16: Patient seen and evaluated in bedside. Order lidocaine patch for shoulder pain and eye drops for conjunctivitis. Sestamibi scan pending tomorrow. Surgery on board possible parathyroidectomy. Objective vital signs Vital Sign Date Time Temp Pulse Resp B/P (MAP) Pulse Ox O2 Delivery O2 Flow Rate FiO2 04/16/25 10:10 98 Nasal Cannula* 2 28 04/16/25 09:35 85 138/75 04/16/25 09:32 18 04/16/25 05:00 98.2 98.2 Total Intake and Output 04/15/25 04/15/25 04/16/25 15:00 23:00 07:00 Intake Total 100 ml 350 ml 140 ml Balance 100 ml 350 ml 140 ml medications Current Medications Medications Dose Ordered Sig/Margarito Route Start Time Stop Time Status Last Admin Dose Admin Aspirin 81 mg DAILY PO 04/05/25 17:40 04/16/25 09:35 81 MG Atorvastatin Calcium 40 mg HS PO 04/05/25 22:00 04/15/25 21:41 40 MG Acetaminophen 650 mg Q6HP PRN PO 04/05/25 17:30 Nitroglycerin 0.4 mg Q5MINP PRN SL 04/05/25 17:30 Ondansetron HCl 4 mg Q4HP PRN IV 04/05/25 17:30 04/14/25 19:39 4 MG Enoxaparin Sodium 30 mg DAILY SC 04/06/25 10:00 04/16/25 09:35 30 MG Multivit/Ca Carb/ B Cmplx/FA/Prenat 1 tab DAILY PO 04/06/25 10:00 04/16/25 09:31 1 TAB Clopidogrel Bisulfate 75 mg DAILY PO 04/06/25 10:00 04/16/25 09:31 75 MG Quetiapine Fumarate 100 mg DAILY PO 04/06/25 10:00 04/16/25 09:31 100 MG Patient Own Medication 3 cap HS PO 04/05/25 22:00 Levothyroxine Sodium 200 mcg QAM@0600 PO 04/06/25 06:00 04/16/25 06:57 200 MCG Sevelamer HCl 1,600 mg TIDWM PO 04/06/25 08:00 04/16/25 09:33 1,600 MG Pantoprazole Sodium 40 mg DAILY@0600 PO 04/07/25 06:00 04/16/25 06:56 40 MG Albuterol 2.5 mg Q6HPRN PRN NEB 04/06/25 10:30 04/14/25 21:23 2.5 MG Carisoprodol 350 mg TID PO 04/06/25 12:00 04/16/25 06:56 350 MG Carvedilol 12.5 mg Q12HR PO 04/08/25 22:00 04/16/25 09:35 12.5 MG Docusate Sodium 100 mg BID PRN PO 04/09/25 16:45 04/14/25 12:04 100 MG Ergocalciferol 50,000 unit Q7D PO 04/09/25 18:30 04/09/25 20:03 50,000 UNIT Hydralazine HCl 25 mg Q8HR PO 04/10/25 14:00 Hold 04/13/25 06:55 25 MG Patient Own Medication 1 BID MD 04/10/25 22:00 04/15/25 09:53 1 Lactulose 30 ml BID PO 04/10/25 22:00 04/14/25 09:30 30 ML Epoetin Checo-epbx 4,000 unit MWF@2100 SC 04/12/25 21:00 04/15/25 21:39 4,000 UNIT Zirconium Oxide 10 gm DAILY PO 04/11/25 20:45 04/16/25 09:29 10 GM Bisacodyl 10 mg DAILYP PRN MD 04/14/25 16:15 04/14/25 17:51 10 MG Hydromorphone HCl 0.5 mg Q4HP PRN IV 04/15/25 15:00 04/16/25 09:02 0.5 MG Morphine Sulfate 15 mg Q8HR PO 04/15/25 22:00 04/16/25 06:57 15 MG Polyethylene Glycol 17 gm DAILY PO 04/16/25 10:00 Nifedipine 60 mg DAILY PO 04/17/25 10:00 UNV Calcitriol 1 mcg DAILY PO 04/16/25 11:30 UNV Examination Constitutional: Patient lying on bed. On nasal cannula 2 L oxygen ENT: No: Ear pain, Ear discharge, Nose pain, Nose discharge Respiratory: Bilateral equal entry at both lung, chest tender on deep palpation Cardiovascular: No: Chest Pain, Palpitations, Orthopnea, Paroxysmal Noc. Dyspnea, Edema, Gastrointestinal: Tender on deep palpation left lower quadrant, bowel sounds present Genitourinary: Suprapubic area and renal angle non tender on deep palpation Musculoskeletal: bed-bound, right hip and sternal area [id number] tender on deep palpation Skin: tunnel catheter on left side of the chest, right groin triple-lumen catheter Neurological: Paraplegia, decreased sensation lower extremity laboratory and microbiology Laboratory Tests 04/16/25 05:48 Test 04/16/25 05:48 Range/Units Serum Glucose 64 L 74-106 mg/dL Microbiology Date/Time Source Procedure Growth Status 04/05/25 23:15 Nose MRSA Screen - Final Methicillin Resistant S.aureus Complete 04/05/25 11:30 Blood Blood Culture - Final NO GROWTH AFTER 5 DAYS OF INCUBATION. Complete Problem List/Assessment/Plan Problem List/Assessment/Plan laboratory and microbiology Laboratory Tests 04/13/25 04:40 Test 04/13/25 04:40 Range/Units Serum Glucose 75 74-106 mg/dL Microbiology Date/Time Source Procedure Growth Status 04/05/25 23:15 Nose MRSA Screen - Final Methicillin Resistant S.aureus Complete 04/05/25 11:30 Blood Blood Culture - Final NO GROWTH AFTER 5 DAYS OF INCUBATION. Complete Problem List/Assessment/Plan Problem List/Assessment/Plan This is a 70-year-old female with past medical history of paraplegia since 2018 after surgery spine, CAD with no stent recent angiogram 3 months ago in [facility] reported normal, HTN, COPD on 2 L home oxygen, CHF with preserved ejection fraction, bed-bound since surgery 2017, bipolar disorder ESRD on hemodialysis Tuesday, umbilical hernia, tonsillectomy, hemorrhoids, I and D on her decubitus ulcer sacral region present to ER with complaint of chest pain for 2 weeks which is getting worse before arrived to the hospital. Chest pain was 9/10 intensity, sharp, intermitted, no aggravating or relieving factor. History of broken right hip 1 year ago and surgery done in [facility] but no prosthesis. Admission patient become hemodynamically unstable and started pressor. Off pressor on 04/07/2025. NEUROLOGY Paraplegia since 2018 after surgery in the spine History of bed-bound due to back surgery in 2018 for cyst removal. * Off sedative or pressor * Bed-bound since 2018 * Plan: Physical therapy , fall precaution CARDIOVASCULAR: Hypotensive shock requiring pressor support Cardiomegaly. NSTEMI likely type 2 secondary to demand ischemia History of CAD, patient denies and claims she does not have any stents in her heart. History of CHF, [place] Ascending thoracic aorta is moderately dilated, measuring 3.8 cm. Dyslipidemia * Trop 80s to 90s, on admission * EKG showed no ST-T changes * Septic Shock secondary to pneumonia * Likely heart failure with preserved ejection fraction * Echo on 04/06/2025 shows LVEF 65%, moderately dilated right ventricle and right atrium * Cardiology: Elevated Troponin - trending up, likely demand ischemia in setting of CPR, septic shock. EKG-no ST and T-wave abnormalities. * Plan Continue atorvastatin, aspirin, clopidogrel, nitroglycerin sublingual, nifedipine, hydralazine, carvedilol, lisinopril. * Monitor blood pressure PULMONARY: Acute hypoxic respiratory failure due to COPD exacerbation/pneumonia Bilateral pleural effusions Possible aspiration pneumonia Possible gram positive/Gram-negative pneumonia History of COPD with 2L home O2 History of tobacco use * CT chest on 04/09/2025: Trace bilateral pleural effusions with extensive adjacent atelectasis of the posterior bilateral lower lobes. * Plan: Stopped Zosyn on 04/15/2025, Continue breathing treatment with ipratropium and albuterol. GASTROINTESTINAL: History of GERD History of ventral umbilical hernia. History of tonsillectomy. History of hemorrhoids. Sebaceous cyst abdominal wall Elevated ALP Chronic constipation likely due to bed-bound US soft tissue abdomen: 2x1x1 cm subcutaneous cystic mass which could be represent a sebaceous cyst. * Plan: :Continue Protonix , lactulose . GENITOURINARY: CKD on HD HD on Tuesday Nephrology consult appreciated Hyponatremia Hyperkalemia * CT on 04/09/2025: Marked bilateral renal atrophy and cortical scarring / thinning. * plan:Continue savelamer, hemodialysis. HEMATOLOGY: Questionable metastatic disease Anemia of chronic disease secondary to renal failure Thrombocytopenia * CT chest on 04/09/2025: Multifocal lytic lesions throughout the visualized axial and appendicular skeleton involving the vertebral bodies of the thoracic spine, bilateral humeral heads and bilateral concerning for metastatic disease. * Bone scan on 03/12/2025: Indeterminate diffuse increased activity in the calvarium, maxilla and mandible. This may be related to metastatic disease or metabolic process or Paget's disease. Few foci of increased activity in the right femur and right inferior pubic ramus. This may be related to metastatic disease or trauma. * Ferritin 831.3, iron 83, TIBC is 162, % saturation 26.5 on admission * Thrombocytopenia * Plan: Monitor cbc. METABOLIC: Hypothyroidism Vitamin D deficiency Hyperparathyroidism- secondary * PTH 4192.3 * Thyroid USG-no significant abnormality. * THS 8.06, free T4 0.49 * Lactic acid 1.0 * Hemoglobin A1c 4.5 * Plan:Continue levothyroxine, vitamin D3, parathyroid scan pending INFECTIOUS DISEASE: History of aspiration pneumonia Possible aspiration pneumonia Positive MRSA screen, mupirocin SIRS (Leukopenia and tachycardia) Right axillary lymphadenopathy/mass Bilateral conjunctivitis * Blood culture x2 negative * CRP 9.70 * ESR 50 * plan: Stopped Zosyn on 04/15/2025. * Biopsy right axillary lymph node by IR unable to do because of very small size. Ciprofloxacin eyedrops. 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 History of chronic fracture of the right inferior pubic ramus. History of paraplegia. Gait instability Lytic bony lesion Likely Renal osteodystrophy Questionable metastatic disease Possible Paget's disease of the bone * CT chest on 04/09/2025: Multifocal lytic lesions involving the vertebral bodies, bilateral humeral heads concerning for metastatic disease. * Bone scan on 04/13/2025: Indeterminate diffuse increased activity in the calvarium, maxilla and mandible, may be related to metastatic disease or metabolic process or Paget's disease. * Patient bed-bound since then * Uric acid level 4.1 * Rheumatoid factor<10 * Plan to continue pain management with morphine 15 mg ER every 8 hour and Dilaudid. Lidocaine patch * Possible parathyroidectomy, surgery on board PSYCHIATRIC History of bipolar disorder Anxiety disorder * Plan continue alprazolam and quetiapine History of sacral ulcer History of I&D for decubitus ulcer. Sacral area healing scar tissue with no active discharge or signs symptoms of inflammation. DIET: Renal DVT prophylax: Lovenox GI prophylaxis: Protonix Bowel regimen: Lactulose and MiraLax. Code status: Full code- time spent 18 mins LINES/DRAINS/ACCESS: IV access: Left-sided tunneled catheter, right groin triple-lumen catheter. Drips: s/p Levophed, currently not on any drips DISPOSITION: Telemetry Patient's status discussed with patient daughter ,Maryam-on bedside, nurse. More than 27 minute spent with patient. Case discussed with Dr. Gill Plan discussed with: Patient, Daughter (maryam), Other My Orders My Orders Orders - CHANDNI BREWSTER Procedure Category Date Status Time Thyroid US 04/15/25 Resulted 20:16 Lidocaine 5% Topical PHA 04/16/25 Verified Patch (Lidoderm 5% 13:30 Lidocaine 5% Topical PHA 04/17/25 Verified Patch (Lidoderm 5% 10:00 Ciprofloxacin 0.3% PHA 04/16/25 Verified Opthalmic (Cipro Opth 13:30 Ciprofloxacin 0.3% PHA 04/16/25 Verified Opthalmic (Cipro Opth 14:00 Dietary Evaluation Review Recommendations by RD: Protein Supplementation Comments: 1) Add renal restriction to cardiac diet 2) Initiate Nepro qd 3) Encourage optimal PO intake 4) Follow-up with cardiology, pulmonology, and nephrology 5) Continue to monitor I&O, labs, and skin integrity Expected Outcomes/Goals: 1) appetite and labs to improve 2) wound to improve 3) f/u in 3-5 days Date of Service: Apr 16, 2025 Billing Provider: LUANNE GILL MD Common Visit Codes: [id number] INP/OBS CARE(HIGH) Secondary Visit Codes: 95363-[id number] CARE PLAN 30 MINUTES CHANDNI BREWSTER Apr 16, 2025 13:21 LUANNE GILL MD Apr 17, 2025 15:35
[2025-04-16] MEDS ORDERED: CIPROFLOXACIN 0.3%OPTH(EYE) SOL 5ML EACHEYE ONE (13:30)
[2025-04-16] MEDS: CALCITRIOL 0.25 MCG CAP PO SCH (14:07)
[2025-04-16] MEDS: LIDOCAINE 5% TOPICAL PATCH TOP ONE (14:13)
[2025-04-16] MEDS: CIPROFLOXACIN 0.3%OPTH(EYE) SOL 5ML EACHEYE SCH (14:23)
--- NOTE | 2025-04-16 18:12 | DVHINCON2 ---
Date of service: Apr 16, 2025 Family History: Alcoholism G8 MOTHER Cancer G8 MOTHER (BREAST) G8 FATHER (PROSTATE) G8 SISTER (BREAST) G8 BROTHER G8 BROTHER G8 BROTHER FH: breast cancer G8 MOTHER, Onset:Unknown FH: prostate cancer Family history: Cardiovascular disease G8 FATHER Allergies: Coded Allergies: Baclofen (Verified Allergy, Unknown, 11/07/23) Home Meds Active Scripts Ampicillin (Ampicillin) 500 Mg Cap, 1 CAP PO TID for 10 Days, #30 CAP Prov:HATTIE ROLLINS [employer]ETING COORDINATOR 03/16/24 Sulfamethoxazole W/Trimethopri (Bactrim Ds Tablet) 1 Tab Tb, 1 TAB PO BID for 10 Days, #20 TAB Prov:HATTIE ROLLINS NP 03/16/24 Albuterol Sulfate (Albuterol Sulfate) 0.083 % Neb, 1 VIAL NEB Q4HPRN, #50 VIAL 2 Refills Prov:LUANNE GILL MD 11/10/23 Isosorbide Mononitrate (Isosorbide Mononitrate Er) 30 Mg Tab, 1 TAB PO DAILY, #30 TAB Prov:AZAR ALBA MD 09/01/21 Nifedipine (Nifedipine Er) 90 Mg Tab, 1 TAB PO DAILY, #30 TAB Prov:AZAR ALBA MD 09/01/21 Ascorbic Acid (VITAMIN C TABLET) 500 Mg Tb, 500 MG PO BID for 30 Days Prov:DASHAWN PELAEZ MD 09/12/18 Reported Medications Phenylephrine HCl (Topical) (Preparation H) 0.25 % Sup, 0.25 % NM BID for hemorrhoidal pain, SUPP 04/10/25 Fluconazole (Fluconazole) 150 Mg Tab, 1 TAB PO DAILY for 7 Days, #7 MG 11/09/23 Triamcinolone Acetonide (Kenalog) 1 Applic Ap, 1 APPLIC TOP BID 11/09/23 Ondansetron Odt 4MG Tab (ZOFRAN PO) 4 Mg Tb, 1 TAB PO DAILY 11/09/23 Tenapanor HCl (Xphozah) 30 Mg Tab, 1 TAB PO BID 11/09/23 B-Complex W/ C & Folic Acid (Marisela-Tita Rx) Tab, 1 TAB PO DAILY 11/09/23 Lisinopril (Lisinopril) 20 Mg Tab, 1 TAB PO DAILY 11/09/23 Quetiapine Fumerate (Seroquel) 100 Mg Tab, 1 TAB PO DAILY 11/09/23 Hydralazine HCl (Hydralazine HCl) 25 Mg Tab, 1 TAB PO TID 11/07/23 Carvedilol (Carvedilol) 12.5 Mg Tab, 1 TAB PO BID 11/07/23 Oxycodone W/ Acetaminophen (Apap/Oxycodone) 1 Tab Tab, 10-325 MG PO QIDPRN PRN for back pain 08/31/21 Carisoprodol (Soma) 350 Mg Tab, 350 MG PO QID 03/07/19 Clopidogrel Bisulfate (CLOPIDOGREL) 75 Mg Tab, 75 MG PO DAILY 03/07/19 Levothyroxine Sodium (Levothyroxine Sodium) 200 Mcg Tab, 200 MCG PO QAM Dose verified against [facility] record 08/18/18 Docusate Sodium (DOCQLACE) 100 Mg Cap, 100 MG PO TID 08/05/18 Temazepam (Temazepam) 30 Mg Cap, 15 MG PO HS PRN for FOR INSOMNIA 04/17/18 Alprazolam (Xanax) 0.5 Mg Tb, 0.5 TAB PO BID 07/14/17 Cinacalcet Hydrochloride (Sensipar) 60 Mg Tab, 60 MG PO TID Per patient, she takes cinacalcet 60 mg tab, TID before meals. 01/08/16 Sevelamer Carbonate (Renvela) 800 Mg Tab, 2 TAB PO TID 01/08/16 Pantoprazole Sodium Sesquihydr (Protonix) 40 Mg Tab, 40 MG PO DAILY 01/08/16 Doxepin Hcl (Doxepin Hcl) 50 Mg Cap, 3 CAP PO QPM per patient 12/20/12 Atorvastatin Calcium (Lipitor) 10 Mg Tab, 1 TAB PO DAILY 12/20/12 Current Medications Current Medications Medications (Trade) Dose Ordered Sig/Margarito Route PRN Reason Start Time Stop Time Status Last Admin Morphine Sulfate (Oramorph Sustained Release Tab) 15 mg Q8HR PO 04/15/25 22:00 04/16/25 06:57 Polyethylene Glycol (Miralax 17GM Powder) 17 gm DAILY PO 04/16/25 10:00 Nifedipine (Procardia Xl (Time-Release)) 60 mg DAILY PO 04/17/25 10:00 Calcitriol (Rocaltrol Capsule) 1 mcg DAILY PO 04/16/25 11:30 04/16/25 14:07 Lidocaine (Lidoderm 5% Topical Patch) 1 patch DAILY TOP 04/17/25 10:00 Ciprofloxacin HCl (Cipro Opthalmic) 1 drop Q4HR EACHEYE 04/16/25 14:00 04/21/25 14:00 04/16/25 14:23 Vital Signs Vital Signs Date Time Temp Pulse Resp B/P (MAP) Pulse Ox O2 Delivery O2 Flow Rate FiO2 04/16/25 14:48 85 17 121/60 04/16/25 10:10 98 Nasal Cannula* 2 28 04/16/25 05:00 98.2 98.2 Labs/Diagnostic Data Labs Test 04/16/25 05:48 04/15/25 11:55 04/13/25 04:40 04/12/25 10:44 Range/Units White Blood Count 4.8 4.4-10.8 10^3/uL Red Blood Count 2.61 L 4.0-5.20 10^6/uL Hemoglobin 8.4 L 12.2-16.2 g/dL Hematocrit 26.2 L 36.0-46.0 % Mean Corpuscular Volume 100.2 H 80.0-100.0 fL Mean Corpuscular Hemoglobin 32.2 H 28.0-32.0 pg Mean Corpuscular Hemoglobin Concent 32.2 32.0-36.0 g/dL Red Cell Distribution Width 18.0 H 11.8-14.3 % Platelet Count 111 L 140-450 10^3/uL Mean Platelet Volume 10.0 6.9-10.8 fL Neutrophils (%) (Auto) 37.0-80.0 % Lymphocytes (%) (Auto) 10.0-50.0 % Monocytes (%) (Auto) 0.0-12.0 % Basophils (%) (Auto) 0.0-2.0 % Neutrophils # (Auto) 1.6-8.6 10 ^3/uL Lymphocytes # (Auto) 0.4-5.4 10 ^3/uL Monocytes # (Auto) 0-1.3 10 ^3/uL Differential Total Cells Counted 100.0 100 Neutrophils % (Manual) 26 L 37.0-80.0 Band Neutrophils % (Manual) 0 Lymphocytes % (Manual) 60 H 10.0-50.0 Monocytes % (Manual) 13 H 0-12 Eosinophils % (Manual) 1 0-7 Basophils % (Manual) 0 0.0-2.0 Metamyelocytes % (manual) 0 Myelocytes % (Manual) 0 Promyelocytes % (Manual) 0 Blast Cells % (Manual) 0 Reactive Lymphocytes 0 Platelet Estimate Decreased Sodium Level 137 136-145 mmol/L Potassium Level 4.4 3.5-5.1 mmol/L Chloride Level 96 L 98-107 mmol/L Carbon Dioxide Level 30 20-31 mmol/L Anion Gap 11 5-15 Blood Urea Nitrogen 20 # 9-23 mg/dL Creatinine 2.62 #H 0.550-1.02 mg/dL Glomerular Filtration Rate Calc 19 >90 mL/min BUN/Creatinine Ratio 7.6 L 10.0-20.0 Serum Glucose 64 L 74-106 mg/dL Calcium Level 9.2 8.7-10.4 mg/dL Eosinophils (%) (Auto) 3.0 0.0-7.0 % Eosinophils # (Auto) 0.2 0-0.8 10 ^3/uL Basophils # (Auto) 0 0-0.2 10 ^3/uL Nucleated Red Blood Cells 0.0 % Parathyroid Hormone (Intact) 4192.3 H 18.4-80.1 pg/mL Smudge Cells 3 /100 WBC Large Platelets Few Ovalocytes Few POC Glucose 88 70-106 mg/dl Test 04/12/25 05:31 04/09/25 05:01 04/07/25 01:40 04/06/25 18:12 Range/Units Anisocytosis (manual) Slight Iron Level 70 50-170 ug/dL Total Iron Binding Capacity 149 L 250-425 ug/dL Percent Iron Saturation 47.0 15-50 % Ferritin 575.8 H 10-291 ng/mL Giant Platelets Few Uric Acid 4.1 3.1-7.8 mg/dL Phosphorus Level 4.8 2.4-5.1 mg/dL Magnesium Level 2.3 1.6-2.6 mg/dL Vitamin D 25-Hydroxy 20.7 L 30.0-100 ng/mL Rheumatoid Factor <10.0 <14.0 IU/mL Troponin I High Sensitivity 73 *H </=34 ng/L Vitamin B12 Level 390 211-911 pg/mL Folic Acid 5.70 >5.38 ng/mL Test 04/06/25 11:58 04/06/25 03:00 04/05/25 11:30 Range/Units Erythrocyte Sedimentation Rate 50 H 0-20 mm/hr C-Reactive Protein High Sensitivity 9.70 H <1.0 mg/dL Triglycerides Level 162 H < 150 mg/dL Cholesterol Level 150 < 200 mg/dL LDL Cholesterol 41 < 100 mg/dL HDL Cholesterol 58 40-59 mg/dL Prothrombin Time 11.4 9.3-11.8 sec Prothrombin Time INR 1.08 0.9-1.15 Activated Partial Thromboplast Time 33.6 24.5-34.5 SEC Hemoglobin A1c 4.5 <5.7 % A1C Lactic Acid Level 1.0 0.4-2.0 mmol/L Total Bilirubin < 0.2 L 0.2-1.0 mg/dL Aspartate Amino Transferase (AST) 12 L 13-40 U/L Alanine Aminotransferase (ALT) < 9 7-40 U/L Alkaline Phosphatase 387 H 46-116 U/L Total Protein 6.9 5.7-8.2 g/dL Albumin 3.4 3.2-4.8 g/dL Thyroid Stimulating Hormone (TSH) 8.06 H 0.55-4.78 uIU/mL Free Thyroxine (T4) Calculated 0.49 L 0.89-1.76 ng/dL Hepatitis B Surface Antigen Negative Negative Microbiology Date/Time Source Procedure Growth Status 04/05/25 23:15 Nose MRSA Screen - Final Methicillin Resistant S.aureus Complete 04/05/25 11:30 Blood Blood Culture - Final NO GROWTH AFTER 5 DAYS OF INCUBATION. Complete Assessment [id number] C/O GENERALIZED WEAKNESS NO SWALLOWING DIFFICULTY PARAPLEGIA COPD NE ESRD ON DIALYSIS HYPERPARATHYROIDISM THYROID SCAN NEG CONSIDER ENDOCRINOLOGY EVAL PARATHYROID SCAN Plan discussed with: Patient GABRIELLE HOGAN MD Apr 16, 2025 18:12
--- NOTE | 2025-04-16 21:44 | DVHINCON2 ---
DATE OF CONSULTATION: 04/16/2025 HISTORY OF PRESENT ILLNESS: This patient is 70 years old with past medical history of paraplegia, CAD, hypertension, COPD, CHF, and she is bedbound due to back surgery and I was asked to see her with regards to hyperparathyroidism and possible parathyroid surgery. At this point, no nausea or vomiting, no constipation or diarrhea, no swallowing difficulties. PAST MEDICAL HISTORY: CAD, CHF, hypertension, MD, ____ COPD, and she also has renal failure. She has an end-stage renal disease, on dialysis. PAST SURGICAL HISTORY: Includes incision and drainage of the decubitus ulcer and back surgery, tonsillectomy. PHYSICAL EXAMINATION: VITAL SIGNS: Afebrile, stable signs. HEENT: No evidence of pallor, cyanosis or jaundice. NECK: Supple and nontender with no thyromegaly or lymphadenopathy. CHEST AND LUNGS: Clear. HEART: Within normal limits. ABDOMEN: Soft. NEUROLOGIC: Not assessed. EXTREMITIES: Unchanged. CLINICAL IMPRESSION: Hyperparathyroidism based upon the parathyroid hormone level and at this point, she needs endocrinology evaluation and possibly a parathyroid scan to determine the need for surgery. MD PEREZ Chowdhury/NEHEMIAS/MARYELLEN TID: [id number] RECEIPT: [id number] cc:
--- NOTE | 2025-04-16 23:47 | DVHPN2 ---
Progress Note - Dictate Date Seen: Apr 16, 2025 Medical Necessity Reason Pt with a Central, PICC or Fol: Yes Subjective Patient was seen and evaluated in follow up. Patient is on 2 LPM NC. Patient is complaining of shoulder pain, worse with movement. Thyroid US is WNL. Pending Sestamibi scan tomorrow. HGB 8.4, HCT 26.2, Manager Testing 2.62. Telemetry reviewed. vital signs Vital Sign Date Time Temp Pulse Resp B/P (MAP) Pulse Ox O2 Delivery O2 Flow Rate FiO2 04/16/25 23:13 82 16 113/60 04/16/25 21:00 97.5 100 97.5 04/16/25 10:10 Nasal Cannula* 2 28 Total Intake and Output 04/15/25 04/15/25 04/16/25 15:00 23:00 07:00 Intake Total 100 ml 350 ml 140 ml Balance 100 ml 350 ml 140 ml medications Current Medications Medications Dose Ordered Sig/Margarito Route Start Time Stop Time Status Last Admin Dose Admin Aspirin 81 mg DAILY PO 04/05/25 17:40 04/16/25 09:35 81 MG Atorvastatin Calcium 40 mg HS PO 04/05/25 22:00 04/16/25 22:09 40 MG Acetaminophen 650 mg Q6HP PRN PO 04/05/25 17:30 Nitroglycerin 0.4 mg Q5MINP PRN SL 04/05/25 17:30 Ondansetron HCl 4 mg Q4HP PRN IV 04/05/25 17:30 04/14/25 19:39 4 MG Enoxaparin Sodium 30 mg DAILY SC 04/06/25 10:00 04/16/25 09:35 30 MG Multivit/Ca Carb/ B Cmplx/FA/Prenat 1 tab DAILY PO 04/06/25 10:00 04/16/25 09:31 1 TAB Clopidogrel Bisulfate 75 mg DAILY PO 04/06/25 10:00 04/16/25 09:31 75 MG Quetiapine Fumarate 100 mg DAILY PO 04/06/25 10:00 04/16/25 09:31 100 MG Patient Own Medication 3 cap HS PO 04/05/25 22:00 Levothyroxine Sodium 200 mcg QAM@0600 PO 04/06/25 06:00 04/16/25 06:57 200 MCG Sevelamer HCl 1,600 mg TIDWM PO 04/06/25 08:00 04/16/25 18:35 1,600 MG Pantoprazole Sodium 40 mg DAILY@0600 PO 04/07/25 06:00 04/16/25 06:56 40 MG Albuterol 2.5 mg Q6HPRN PRN NEB 04/06/25 10:30 04/14/25 21:23 2.5 MG Carisoprodol 350 mg TID PO 04/06/25 12:00 04/16/25 22:07 350 MG Carvedilol 12.5 mg Q12HR PO 04/08/25 22:00 04/16/25 22:09 12.5 MG Docusate Sodium 100 mg BID PRN PO 04/09/25 16:45 04/14/25 12:04 100 MG Ergocalciferol 50,000 unit Q7D PO 04/09/25 18:30 04/16/25 18:35 50,000 UNIT Hydralazine HCl 25 mg Q8HR PO 04/10/25 14:00 Hold 04/13/25 06:55 25 MG Patient Own Medication 1 BID OH 04/10/25 22:00 04/16/25 22:10 1 Lactulose 30 ml BID PO 04/10/25 22:00 04/14/25 09:30 30 ML Epoetin Checo-epbx 4,000 unit MWF@2100 MO 04/12/25 21:00 04/15/25 21:39 4,000 UNIT Zirconium Oxide 10 gm DAILY PO 04/11/25 20:45 04/16/25 09:29 10 GM Bisacodyl 10 mg DAILYP PRN OH 04/14/25 16:15 04/14/25 17:51 10 MG Hydromorphone HCl 0.5 mg Q4HP PRN IV 04/15/25 15:00 04/16/25 23:13 0.5 MG Morphine Sulfate 15 mg Q8HR PO 04/15/25 22:00 04/16/25 23:08 15 MG Polyethylene Glycol 17 gm DAILY PO 04/16/25 10:00 Nifedipine 60 mg DAILY PO 04/17/25 10:00 Calcitriol 1 mcg DAILY PO 04/16/25 11:30 04/16/25 14:07 1 MCG Lidocaine 1 patch DAILY TOP 04/17/25 10:00 Ciprofloxacin HCl 1 drop Q4HR EACHEYE 04/16/25 14:00 04/21/25 14:00 04/16/25 22:07 1 DROP objective GENERAL: Alert and oriented x 3. No acute distress. Paraplegic. EYES: PERRL, EOMI. Anicteric. HENT: Moist mucous membranes. LUNGS: Clear to auscultation bilaterally. CARDIOVASCULAR: Regular rate and rhythm. ABDOMEN: Soft, nontender and nondistended. EXTREMITIES: No edema. NEUROLOGIC: No focal neurological deficits. SKIN: Wounds (Decubitus). laboratory and microbiology Laboratory Tests 04/16/25 05:48 Test 04/16/25 05:48 Range/Units Serum Glucose 64 L 74-106 mg/dL Problem List NSTEMI likely type 2. Anemia likely due to chronic renal failure. Cardiomegaly. Probable pneumonia. Elevated ALP. Hyponatremia. Hyperkalemia. Thrombocytopenia. Acute on chronic renal failure on dialysis (M/W/F). Acute hypoxic respiratory failure on supportive oxygen. 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 History of chronic fracture of the right inferior pubic ramus. History of paraplegia. History of CAD, patient denies and claims she does not have any stents in her heart. History of hypertension. History of COPD. History of CHF. History of bed-bound due to back surgery in 2018 for cyst removal. History of [place]. History of bipolar disease. History of ventral umbilical hernia. History of tonsillectomy. History of hemorrhoids. History of I&D for decubitus ulcer. History of tobacco use. Assessment/Plan Continued all current supportive medical care. Aspirin, Lipitor, Plavix. Coreg, Nifedipine. DVT and GI prophylactics. Dilaudid and Morphine for pain management. Lactulose. IV antibiotics as ordered. Additional plan as per the hospital course. Dietary Evaluation Review Recommendations by RD: Protein Supplementation Comments: 1) Add renal restriction to cardiac diet 2) Initiate Nepro qd 3) Encourage optimal PO intake 4) Follow-up with cardiology, pulmonology, and nephrology 5) Continue to monitor I&O, labs, and skin integrity Expected Outcomes/Goals: 1) appetite and labs to improve 2) wound to improve 3) f/u in 3-5 days Plan discussed with: Patient WENDY COREAS MD Apr 16, 2025 23:47
[2025-04-17] VITALS (10 sets, daily range): BP systolic 119–165; BP diastolic 69–84; PULSE 74–116; RESP 16–19; TEMP 97.6–99.3; O2SAT 91–99
[2025-04-17 07:22] LABS: Hemoglobin 8.4 g/dL (12.2-16.2); Nucleated Red Blood Cells % 0.0 %
[2025-04-17 07:25] LABS: Hematocrit 25.9 % (36.0-46.0); Mean Corpuscular Hemoglobin 32.3 pg (28.0-32.0); Mean Corpuscular Volume 99.8 fL (80.0-100.0)
[2025-04-17] MEDS: LIDOCAINE 5% TOPICAL PATCH TOP SCH (09:34)
--- NOTE | 2025-04-17 10:39 | DVHPNRES ---
Progress Note Date Seen: Apr 17, 2025 Resident Creating Document: CHANDNI BREWSTER RESIDENT Medical Necessity Reason Pt with a Central, PICC or Fol: Yes Subjective Review of Systems This is a 70-year-old female with past medical history of paraplegia since 2018 after surgery spine, CAD with no stent recent angiogram 3 months ago in [facility] reported normal, HTN, COPD on 2 L home oxygen, CHF with preserved ejection fraction, bed-bound since surgery 2017, bipolar disorder ESRD on hemodialysis Tuesday umbilical hernia, tonsillectomy, hemorrhoids, I and D on her decubitus ulcer sacral region present to ER with complaint of chest pain for 2 weeks which is getting worse before arriving to the hospital. Esterase pain was 9/10 intensity, sharp, intermitted, no aggravating or relieving factor. History of broken right hip 1 year ago and surgery done in [facility] but no prosthesis. Admission patient become hemodynamically unstable and started pressor. Off pressor on 04/07/2025. Past medical history: CAD, CHF, HTN, ND, COPD on 2 L home oxygen, bipolar disorder, ESRD, ventral umbilical hernia, hemorrhoid Past Surgical history: Tonsillectomy Family history cancer-mother with pacemaker and breast cancer, father with colon cancer Social history: X 0 smoker, quit 1 year ago, no ETOH use. Denies any illicit drug Family history lives with family, having caregivers 04/08/2025: Patient seen and evaluated in bedside. Patient complained left upper extremity pain associated with chest pain. No pain on rest but aggravated on movement. Labs for rheumatoid factor, uric acid level we will follow. Physical therapy during discharge. 04/09/2025: Patient seen and evaluated in bedside today. Patient left hand swelling is improving but chest pain on deep palpation. Colace and lactulose ordered for constipation, monitor for bowel movement. Patient currently on oxygen via nasal cannula. 04/10: Patient seen and evaluated in bedside today. Patient chest pain on palpation sternal area. Ordered for bone scan due to CT showed lytic bone lesion. Patient will be benefitted per physical therapy. 04/11: Patient seen and evaluated in bedside. Patient pain better in compared to yesterday switching morphine ER. Bone scan to rule out lytic lesion on CT chest ordered. Follow-up for bowel movement. Denies any fever, abdominal pain, headache. 04/12: Patient seen and evaluated in bedside today. Hemodialysis scheduled today. Patient chest pain is improving. Bone scan done yesterday and IR consulted biopsy right axillary lymph node. 04/15: Patient seen and evaluated in bedside today. Patient scheduled for dialysis and right axillary lymph node biopsy today. Patient having bowel movement yesterday and feeling better in compared to last few days. 04/16: Patient seen and evaluated in bedside. Order lidocaine patch for shoulder pain and eye drops for conjunctivitis. Sestamibi scan pending tomorrow. Surgery on board possible parathyroidectomy. 04/17: Seen and evaluated in bedside today. Bisacodyl suppository order today for constipation. Scheduled for parathyroid scan today. Surgery recommended endocrine evaluation. Objective vital signs Vital Sign Date Time Temp Pulse Resp B/P (MAP) Pulse Ox O2 Delivery O2 Flow Rate FiO2 04/17/25 09:43 79 18 130/79 04/17/25 05:00 99.3 95 99.3 04/16/25 20:00 Nasal Cannula* 2 28 Total Intake and Output 04/16/25 04/16/25 04/17/25 15:00 23:00 07:00 Intake Total 380 ml 350 ml Balance 380 ml 350 ml medications Current Medications Medications Dose Ordered Sig/Margarito Route Start Time Stop Time Status Last Admin Dose Admin Aspirin 81 mg DAILY PO 04/05/25 17:40 04/17/25 09:34 81 MG Atorvastatin Calcium 40 mg HS PO 04/05/25 22:00 04/16/25 22:09 40 MG Acetaminophen 650 mg Q6HP PRN PO 04/05/25 17:30 Nitroglycerin 0.4 mg Q5MINP PRN SL 04/05/25 17:30 Ondansetron HCl 4 mg Q4HP PRN IV 04/05/25 17:30 04/14/25 19:39 4 MG Enoxaparin Sodium 30 mg DAILY SC 04/06/25 10:00 04/17/25 09:35 30 MG Multivit/Ca Carb/ B Cmplx/FA/Prenat 1 tab DAILY PO 04/06/25 10:00 04/17/25 09:33 1 TAB Clopidogrel Bisulfate 75 mg DAILY PO 04/06/25 10:00 04/17/25 09:34 75 MG Quetiapine Fumarate 100 mg DAILY PO 04/06/25 10:00 04/17/25 09:35 100 MG Patient Own Medication 3 cap HS PO 04/05/25 22:00 Levothyroxine Sodium 200 mcg QAM@0600 PO 04/06/25 06:00 04/17/25 05:31 200 MCG Sevelamer HCl 1,600 mg TIDWM PO 04/06/25 08:00 04/17/25 09:34 1,600 MG Pantoprazole Sodium 40 mg DAILY@0600 PO 04/07/25 06:00 04/17/25 05:32 40 MG Albuterol 2.5 mg Q6HPRN PRN NEB 04/06/25 10:30 04/14/25 21:23 2.5 MG Carisoprodol 350 mg TID PO 04/06/25 12:00 04/17/25 05:32 350 MG Carvedilol 12.5 mg Q12HR PO 04/08/25 22:00 04/16/25 22:09 12.5 MG Docusate Sodium 100 mg BID PRN PO 04/09/25 16:45 04/17/25 09:33 100 MG Ergocalciferol 50,000 unit Q7D PO 04/09/25 18:30 04/16/25 18:35 50,000 UNIT Hydralazine HCl 25 mg Q8HR PO 04/10/25 14:00 Hold 04/13/25 06:55 25 MG Patient Own Medication 1 BID MT 04/10/25 22:00 04/16/25 22:10 1 Lactulose 30 ml BID PO 04/10/25 22:00 04/14/25 09:30 30 ML Epoetin Checo-epbx 4,000 unit MWF@2100 HI 04/12/25 21:00 Hold 04/15/25 21:39 4,000 UNIT Zirconium Oxide 10 gm DAILY PO 04/11/25 20:45 04/17/25 09:33 10 GM Hydromorphone HCl 0.5 mg Q4HP PRN IV 04/15/25 15:00 04/17/25 09:43 0.5 MG Morphine Sulfate 15 mg Q8HR PO 04/15/25 22:00 04/17/25 05:31 15 MG Polyethylene Glycol 17 gm DAILY PO 04/16/25 10:00 Nifedipine 60 mg DAILY PO 04/17/25 10:00 Calcitriol 1 mcg DAILY PO 04/16/25 11:30 04/17/25 09:34 1 MCG Lidocaine 1 patch DAILY TOP 04/17/25 10:00 04/17/25 09:34 1 PATCH Ciprofloxacin HCl 1 drop Q4HR EACHEYE 04/16/25 14:00 04/21/25 14:00 04/17/25 09:35 1 DROP Bisacodyl 10 mg DAILYP PRN MT 04/17/25 09:45 Examination Constitutional: Patient lying on bed. On nasal cannula 2 L oxygen ENT: No: Ear pain, Ear discharge, Nose pain, Nose discharge Respiratory: Bilateral equal entry at both lung, chest tender on deep palpation Cardiovascular: No: Chest Pain, Palpitations, Orthopnea, Paroxysmal Noc. Dyspnea, Edema, Gastrointestinal: Tender on deep palpation left lower quadrant, bowel sounds present Genitourinary: Suprapubic area and renal angle non tender on deep palpation Musculoskeletal: bed-bound, right hip and sternal area [id number] tender on deep palpation Skin: tunnel catheter on left side of the chest, right groin triple-lumen catheter Neurological: Paraplegia, decreased sensation bilateral lower extremity laboratory and microbiology Laboratory Tests 04/17/25 06:48 04/16/25 05:48 Test 04/16/25 05:48 Range/Units Serum Glucose 64 L 74-106 mg/dL Microbiology Date/Time Source Procedure Growth Status 04/05/25 23:15 Nose MRSA Screen - Final Methicillin Resistant S.aureus Complete 04/05/25 11:30 Blood Blood Culture - Final NO GROWTH AFTER 5 DAYS OF INCUBATION. Complete Problem List/Assessment/Plan Problem List/Assessment/Plan This is a 70-year-old female with past medical history of paraplegia since 2018 after surgery spine, CAD with no stent recent angiogram 3 months ago in [facility] reported normal, HTN, COPD on 2 L home oxygen, CHF with preserved ejection fraction, bed-bound since surgery 2018, bipolar disorder ESRD on hemodialysis Tuesday, umbilical hernia, tonsillectomy, hemorrhoids, I and D on her decubitus ulcer sacral region present to ER with complaint of chest pain for 2 weeks which is getting worse before arrived to the hospital. Chest pain was 9/10 intensity, sharp, intermitted, no aggravating or relieving factor. History of broken right hip 1 year ago and surgery done in [facility] but no prosthesis. Admission patient become hemodynamically unstable and started pressor. Off pressor on 04/07/2025. NEUROLOGY Paraplegia since 2018 after surgery in the spine History of bed-bound due to back surgery in 2018 for cyst removal. * Off sedative or pressor * Bed-bound since 2018 * Plan: Physical therapy , fall precaution. CARDIOVASCULAR: Hypotensive shock requiring pressor support Cardiomegaly. NSTEMI likely type 2 secondary to demand ischemia History of CAD, patient denies and claims she does not have any stents in her heart. History of CHF, ND Ascending thoracic aorta is moderately dilated, measuring 3.8 cm. Dyslipidemia * Trop 80s to 90s, on admission * EKG showed no ST-T changes * Septic Shock secondary to pneumonia * Likely heart failure with preserved ejection fraction * Echo on 04/06/2025 shows LVEF 65%, moderately dilated right ventricle and right atrium * Cardiology: Elevated Troponin - trending up, likely demand ischemia in setting of CPR, septic shock. EKG-no ST and T-wave abnormalities. * Plan Continue atorvastatin, aspirin, clopidogrel, nitroglycerin sublingual, nifedipine, hydralazine, carvedilol, lisinopril. * Monitor blood pressure PULMONARY: Acute hypoxic respiratory failure due to COPD exacerbation/pneumonia Bilateral pleural effusions Possible aspiration pneumonia Possible gram positive/Gram-negative pneumonia History of COPD with 2L home O2 History of tobacco use * CT chest on 04/09/2025: Trace bilateral pleural effusions with extensive adjacent atelectasis of the posterior bilateral lower lobes. * Plan: Stopped Zosyn on 04/15/2025, Continue breathing treatment with ipratropium and albuterol. GASTROINTESTINAL: History of GERD History of ventral umbilical hernia. History of tonsillectomy. History of hemorrhoids. Sebaceous cyst abdominal wall Elevated ALP Chronic constipation likely due to bed-bound US soft tissue abdomen: 2x1x1 cm subcutaneous cystic mass which could be represent a sebaceous cyst. * Plan: :Continue Protonix , lactulose . GENITOURINARY: CKD on HD HD on Tuesday Nephrology consult appreciated Hyponatremia Hyperkalemia * CT on 04/09/2025: Marked bilateral renal atrophy and cortical scarring / thinning. * Nephrology consult appreciated * plan:Continue savelamer, hemodialysis. HEMATOLOGY: Questionable metastatic disease Anemia of chronic disease secondary to renal failure Leukopenia Thrombocytopenia * CT chest on 04/09/2025: Multifocal lytic lesions throughout the visualized axial and appendicular skeleton involving the vertebral bodies of the thoracic spine, bilateral humeral heads and bilateral concerning for metastatic disease. * Bone scan on 03/12/2025: Indeterminate diffuse increased activity in the calvarium, maxilla and mandible. This may be related to metastatic disease or metabolic process or Paget's disease. Few foci of increased activity in the right femur and right inferior pubic ramus. This may be related to metastatic disease or trauma. * Ferritin 831.3, iron 83, TIBC is 162, % saturation 26.5 on admission * Plan: Monitor cbc, monitor for signs symptoms of active bleeding. METABOLIC: Hypothyroidism Vitamin D deficiency Hyperparathyroidism- secondary * PTH 4192.3 * Thyroid USG-no significant abnormality. * THS 8.06, free T4 0.49 * Lactic acid 1.0 * Hemoglobin A1c 4.5 * Surgery consult appreciated recommended endocrine evaluation. * Plan:Continue levothyroxine, vitamin D3, parathyroid scan today INFECTIOUS DISEASE: History of aspiration pneumonia Possible aspiration pneumonia Positive MRSA screen, mupirocin SIRS (Leukopenia and tachycardia) Right axillary lymphadenopathy/mass Bilateral conjunctivitis * Blood culture x2 negative * CRP 9.70 * ESR 50 * plan: Discontinued Zosyn on 04/15/2025. * Biopsy right axillary lymph node by IR unable to do because of very small size. Ciprofloxacin eyedrops. 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 History of chronic fracture of the right inferior pubic ramus. History of paraplegia. Gait instability Lytic bony lesion Likely Renal osteodystrophy Questionable metastatic disease Possible Paget's disease of the bone Left shoulder and chronic low-back pain * CT chest on 04/09/2025: Multifocal lytic lesions involving the vertebral bodies, bilateral humeral heads concerning for metastatic disease. * Bone scan on 04/13/2025: Indeterminate diffuse increased activity in the calvarium, maxilla and mandible, may be related to metastatic disease or metabolic process or Paget's disease. * Patient bed-bound since then * Uric acid level 4.1 * Rheumatoid factor<10 * Plan to continue pain management with morphine 15 mg ER every 8 hour and Dilaudid. Lidocaine patch * Possible parathyroidectomy, surgery on board * Parathyroid scan today PSYCHIATRIC History of bipolar disorder Anxiety disorder * Plan continue alprazolam and quetiapine History of sacral ulcer History of I&D for decubitus ulcer. Sacral area healing scar tissue with no active discharge or signs symptoms of inflammation. DIET: Renal DVT prophylax: Lovenox GI prophylaxis: Protonix Bowel regimen: Lactulose, MiraLax and bisacodyl suppository as needed. Code status: Full code.-advanced care discussion 15 minutes spent. LINES/DRAINS/ACCESS: IV access: Left-sided tunneled catheter, right groin triple-lumen catheter. Drips: s/p Levophed, currently not on any drips DISPOSITION: Telemetry Patient's status discussed with patient daughter Maryam-over the phone, caregiver, nurse. More than 23 minute spent with patient. Case discussed with Dr. Gill Plan discussed with: Patient, Daughter (Po), Other (Nurse,) My Orders My Orders Orders - CHANDNI BREWSTER Procedure Category Date Status Time Lidocaine 5% Topical PHA 04/17/25 In Process Patch (Lidoderm 5% 10:00 Ciprofloxacin 0.3% PHA 04/16/25 In Process Opthalmic (Cipro Opth 14:00 Bisacodyl Suppository PHA 04/17/25 In Process (Dulcolax Supposit 09:45 Dietary Evaluation Review Recommendations by RD: Protein Supplementation Comments: 1) Add renal restriction to cardiac diet 2) Initiate Nepro qd 3) Encourage optimal PO intake 4) Follow-up with cardiology, pulmonology, and nephrology 5) Continue to monitor I&O, labs, and skin integrity Expected Outcomes/Goals: 1) appetite and labs to improve 2) wound to improve 3) f/u in 3-5 days Date of Service: Apr 17, 2025 Billing Provider: LUANNE GILL MD Common Visit Codes: [id number] INP/OBS CARE(HIGH) CHANDNI BREWSTER Apr 17, 2025 10:39 LUANNE GILL MD Apr 18, 2025 12:50
[2025-04-17] MEDS: BISACODYL 10 MG RECT SUPP PR PRN (11:08)
--- NOTE | 2025-04-17 11:32 | DVHPN2 ---
Progress Note Date Seen: Apr 17, 2025 Medical Necessity Reason Pt with a Central, PICC or Fol: Yes Subjective Review of Systems: MSK:Abnormal Other Systems: Patient seen and examined by myself today in follow-up Objective vital signs Vital Sign Date Time Temp Pulse Resp B/P (MAP) Pulse Ox O2 Delivery O2 Flow Rate FiO2 04/17/25 09:43 79 18 130/79 04/17/25 09:00 98.4 97 98.4 04/16/25 20:00 Nasal Cannula* 2 28 Total Intake and Output 04/16/25 04/16/25 04/17/25 15:00 23:00 07:00 Intake Total 380 ml 350 ml Balance 380 ml 350 ml medications Current Medications Medications Dose Ordered Sig/Margarito Route Start Time Stop Time Status Last Admin Dose Admin Aspirin 81 mg DAILY PO 04/05/25 17:40 04/17/25 09:34 81 MG Atorvastatin Calcium 40 mg HS PO 04/05/25 22:00 04/16/25 22:09 40 MG Acetaminophen 650 mg Q6HP PRN PO 04/05/25 17:30 Nitroglycerin 0.4 mg Q5MINP PRN SL 04/05/25 17:30 Ondansetron HCl 4 mg Q4HP PRN IV 04/05/25 17:30 04/17/25 11:08 4 MG Enoxaparin Sodium 30 mg DAILY SC 04/06/25 10:00 04/17/25 09:35 30 MG Multivit/Ca Carb/ B Cmplx/FA/Prenat 1 tab DAILY PO 04/06/25 10:00 04/17/25 09:33 1 TAB Clopidogrel Bisulfate 75 mg DAILY PO 04/06/25 10:00 04/17/25 09:34 75 MG Quetiapine Fumarate 100 mg DAILY PO 04/06/25 10:00 04/17/25 09:35 100 MG Patient Own Medication 3 cap HS PO 04/05/25 22:00 Levothyroxine Sodium 200 mcg QAM@0600 PO 04/06/25 06:00 04/17/25 05:31 200 MCG Sevelamer HCl 1,600 mg TIDWM PO 04/06/25 08:00 04/17/25 09:34 1,600 MG Pantoprazole Sodium 40 mg DAILY@0600 PO 04/07/25 06:00 04/17/25 05:32 40 MG Albuterol 2.5 mg Q6HPRN PRN NEB 04/06/25 10:30 04/14/25 21:23 2.5 MG Carisoprodol 350 mg TID PO 04/06/25 12:00 04/17/25 05:32 350 MG Carvedilol 12.5 mg Q12HR PO 04/08/25 22:00 04/16/25 22:09 12.5 MG Docusate Sodium 100 mg BID PRN PO 04/09/25 16:45 04/17/25 09:33 100 MG Ergocalciferol 50,000 unit Q7D PO 04/09/25 18:30 04/16/25 18:35 50,000 UNIT Hydralazine HCl 25 mg Q8HR PO 04/10/25 14:00 Hold 04/13/25 06:55 25 MG Patient Own Medication 1 BID CO 04/10/25 22:00 04/16/25 22:10 1 Lactulose 30 ml BID PO 04/10/25 22:00 04/14/25 09:30 30 ML Epoetin Checo-epbx 4,000 unit MWF@2100 MA 04/12/25 21:00 Hold 04/15/25 21:39 4,000 UNIT Zirconium Oxide 10 gm DAILY PO 04/11/25 20:45 04/17/25 09:33 10 GM Hydromorphone HCl 0.5 mg Q4HP PRN IV 04/15/25 15:00 04/17/25 09:43 0.5 MG Morphine Sulfate 15 mg Q8HR PO 04/15/25 22:00 04/17/25 05:31 15 MG Polyethylene Glycol 17 gm DAILY PO 04/16/25 10:00 Nifedipine 60 mg DAILY PO 04/17/25 10:00 Calcitriol 1 mcg DAILY PO 04/16/25 11:30 04/17/25 09:34 1 MCG Lidocaine 1 patch DAILY TOP 04/17/25 10:00 04/17/25 09:34 1 PATCH Ciprofloxacin HCl 1 drop Q4HR EACHEYE 04/16/25 14:00 04/21/25 14:00 04/17/25 09:35 1 DROP Bisacodyl 10 mg DAILYP PRN CO 04/17/25 09:45 04/17/25 11:08 10 MG Examination: LUNGS:Normal, CVS:Normal, MSK:Normal laboratory and microbiology Laboratory Tests 04/17/25 06:48 04/16/25 05:48 Test 04/16/25 05:48 Range/Units Serum Glucose 64 L 74-106 mg/dL Microbiology Date/Time Source Procedure Growth Status 04/05/25 23:15 Nose MRSA Screen - Final Methicillin Resistant S.aureus Complete 04/05/25 11:30 Blood Blood Culture - Final NO GROWTH AFTER 5 DAYS OF INCUBATION. Complete Problem List/Assessment/Plan Problem List/Assessment/Plan ESRD on dialysis Acute on chronic respiratory failure, O2 supply Acute on chronic diastolic Congestive heart failure NSTEMI Paraplegia Multifocal lytic lesions on CT scan concerning for metastatic disease Anemia of chronic kidney disease Severe hyperparathyroidism, PTH more than 4000 Renal osteodystrophy Recommendations Hemodialysis tomorrow Epogen 00810 subQ 3 times weekly Strict I&Os Renal diet Cardiology consult Calcitriol 1 mcg p.o. q.day Noted plan for bone biopsy Surgery consult for parathyroidectomy We will continue to follow Total care time 25 minutes Plan discussed with: Patient My Orders My Orders Orders - DANNY BIGGS MD Procedure Category Date Status Time Hemodialysis Orders ORDERS 04/18/25 Transmitted 04:00 Dietary Evaluation Review Recommendations by RD: Protein Supplementation Comments: 1) Add renal restriction to cardiac diet 2) Initiate Nepro qd 3) Encourage optimal PO intake 4) Follow-up with cardiology, pulmonology, and nephrology 5) Continue to monitor I&O, labs, and skin integrity Expected Outcomes/Goals: 1) appetite and labs to improve 2) wound to improve 3) f/u in 3-5 days DANNY BIGGS MD Apr 17, 2025 11:32
--- NOTE | 2025-04-17 17:45 | DVH ---
Procedure: NM PARATHYROID Exam Date: 04/17/2025 01:39 PM. Clinical History: PTH > 4000 Comparison Study: US THYROID on DOS: 04/15/25 Nuclear Medicine Parathyroid Scan. Technique: Following the intravenous injection of 22.5 mCi of the technetium 99m Sestamibi, images of the neck w ere obtained in multiple projections , immediately and after a two hour delay. Findings: Early imaging demonstrates symmetric activity throughout the thyroid On delayed imaging there is mild retained uptake at both lower poles although assessment is confounde d by residual vascular and marrow activity in this region. Impression: Mild retained uptake at both lower poles which may suggest parathyroid hyperplasia or bilateral adeno mas. Suggest contrast enhanced CT of the neck for further assessment.
[2025-04-17] MEDS: EPOETIN ALFA-EPBX 10,000 UNIT/1ML VIAL SC ONE (22:15)
--- NOTE | 2025-04-17 23:12 | DVHPN2 ---
Progress Note - Dictate Date Seen: Apr 17, 2025 Medical Necessity Reason Pt with a Central, PICC or Fol: Yes Subjective Patient was seen and evaluated in follow up. Patient is complaining of shoulder discomfort. Patient on 2 LPM NC. Patient is scheduled for parathyroid scan today. HGB 8.4, HCT 25.9. Telemetry reviewed. vital signs Vital Sign Date Time Temp Pulse Resp B/P (MAP) Pulse Ox O2 Delivery O2 Flow Rate FiO2 04/17/25 09:43 79 18 130/79 04/17/25 09:00 98.4 97 98.4 04/17/25 08:00 Nasal Cannula* 2 28 Total Intake and Output 04/16/25 04/16/25 04/17/25 15:00 23:00 07:00 Intake Total 380 ml 350 ml Balance 380 ml 350 ml medications Current Medications Medications Dose Ordered Sig/Margarito Route Start Time Stop Time Status Last Admin Dose Admin Aspirin 81 mg DAILY PO 04/05/25 17:40 04/17/25 09:34 81 MG Atorvastatin Calcium 40 mg HS PO 04/05/25 22:00 04/16/25 22:09 40 MG Acetaminophen 650 mg Q6HP PRN PO 04/05/25 17:30 Nitroglycerin 0.4 mg Q5MINP PRN SL 04/05/25 17:30 Ondansetron HCl 4 mg Q4HP PRN IV 04/05/25 17:30 04/17/25 11:08 4 MG Multivit/Ca Carb/ B Cmplx/FA/Prenat 1 tab DAILY PO 04/06/25 10:00 04/17/25 09:33 1 TAB Clopidogrel Bisulfate 75 mg DAILY PO 04/06/25 10:00 04/17/25 09:34 75 MG Quetiapine Fumarate 100 mg DAILY PO 04/06/25 10:00 04/17/25 09:35 100 MG Patient Own Medication 3 cap HS PO 04/05/25 22:00 Levothyroxine Sodium 200 mcg QAM@0600 PO 04/06/25 06:00 04/17/25 05:31 200 MCG Sevelamer HCl 1,600 mg TIDWM PO 04/06/25 08:00 04/17/25 12:00 1,600 MG Pantoprazole Sodium 40 mg DAILY@0600 PO 04/07/25 06:00 04/17/25 05:32 40 MG Albuterol 2.5 mg Q6HPRN PRN NEB 04/06/25 10:30 04/14/25 21:23 2.5 MG Carisoprodol 350 mg TID PO 04/06/25 12:00 04/17/25 13:25 350 MG Carvedilol 12.5 mg Q12HR PO 04/08/25 22:00 04/16/25 22:09 12.5 MG Docusate Sodium 100 mg BID PRN PO 04/09/25 16:45 04/17/25 09:33 100 MG Ergocalciferol 50,000 unit Q7D PO 04/09/25 18:30 04/16/25 18:35 50,000 UNIT Hydralazine HCl 25 mg Q8HR PO 04/10/25 14:00 Hold 04/13/25 06:55 25 MG Patient Own Medication 1 BID KS 04/10/25 22:00 04/16/25 22:10 1 Lactulose 30 ml BID PO 04/10/25 22:00 04/14/25 09:30 30 ML Epoetin Checo-epbx 4,000 unit MWF@2100 PR 04/12/25 21:00 Hold 04/15/25 21:39 4,000 UNIT Zirconium Oxide 10 gm DAILY PO 04/11/25 20:45 04/17/25 09:33 10 GM Hydromorphone HCl 0.5 mg Q4HP PRN IV 04/15/25 15:00 04/17/25 09:43 0.5 MG Morphine Sulfate 15 mg Q8HR PO 04/15/25 22:00 04/17/25 13:24 15 MG Polyethylene Glycol 17 gm DAILY PO 04/16/25 10:00 Calcitriol 1 mcg DAILY PO 04/16/25 11:30 04/17/25 09:34 1 MCG Lidocaine 1 patch DAILY TOP 04/17/25 10:00 04/17/25 09:34 1 PATCH Ciprofloxacin HCl 1 drop Q4HR EACHEYE 04/16/25 14:00 04/21/25 14:00 04/17/25 13:24 1 DROP Bisacodyl 10 mg DAILYP PRN KS 04/17/25 09:45 04/17/25 11:08 10 MG Nifedipine 30 mg DAILY PO 04/17/25 11:30 objective GENERAL: Alert and oriented x 3. No acute distress. Paraplegic. EYES: PERRL, EOMI. Anicteric. HENT: Moist mucous membranes. LUNGS: Clear to auscultation bilaterally. CARDIOVASCULAR: Regular rate and rhythm. ABDOMEN: Soft, nontender and nondistended. EXTREMITIES: No edema. NEUROLOGIC: No focal neurological deficits. SKIN: Wounds (Decubitus). laboratory and microbiology Laboratory Tests 04/17/25 06:48 04/16/25 05:48 Test 04/16/25 05:48 Range/Units Serum Glucose 64 L 74-106 mg/dL Problem List NSTEMI likely type 2. Anemia likely due to chronic renal failure. Cardiomegaly. Probable pneumonia. Elevated ALP. Hyponatremia. Hyperkalemia. Thrombocytopenia. Acute on chronic renal failure on dialysis (M/W/F). Acute hypoxic respiratory failure on supportive oxygen. 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 History of chronic fracture of the right inferior pubic ramus. History of paraplegia. History of CAD, patient denies and claims she does not have any stents in her heart. History of hypertension. History of COPD. History of CHF. History of bed-bound due to back surgery in 2018 for cyst removal. History of [place]. History of bipolar disease. History of ventral umbilical hernia. History of tonsillectomy. History of hemorrhoids. History of I&D for decubitus ulcer. History of tobacco use. Assessment/Plan Continued all current supportive medical care. Aspirin, Plavix. GI prophylactics. Dilaudid and Morphine for pain management. Additional plan as per the hospital course. Dietary Evaluation Review Recommendations by RD: Protein Supplementation Comments: 1) Add renal restriction to cardiac diet 2) Initiate Nepro qd 3) Encourage optimal PO intake 4) Follow-up with cardiology, pulmonology, and nephrology 5) Continue to monitor I&O, labs, and skin integrity Expected Outcomes/Goals: 1) appetite and labs to improve 2) wound to improve 3) f/u in 3-5 days Plan discussed with: Patient WENDY COREAS MD Apr 17, 2025 14:00
[2025-04-18] VITALS (13 sets, daily range): BP systolic 100–141; BP diastolic 58–78; PULSE 60–98; RESP 17–20; TEMP 98.1–98.5; O2SAT 94–100
[2025-04-18 07:34] LABS: Hemoglobin 7.9 g/dL (12.2-16.2)
[2025-04-18 07:36] LABS: Hematocrit 23.8 % (36.0-46.0); Mean Corpuscular Hemoglobin 32.6 pg (28.0-32.0); Mean Corpuscular Volume 98.7 fL (80.0-100.0)
[2025-04-18 09:08] LABS: Anisocytosis Slight; Total Cells Counted 100.0 (100)
--- NOTE | 2025-04-18 13:54 | DVHPN2 ---
Progress Note Date Seen: Apr 18, 2025 Medical Necessity Reason Pt with a Central, PICC or Fol: Yes Subjective Patient reports: No new complaints Other Systems: Patient seen and examined by myself today in follow-up, Patient examined hemodialysis, blood pressure stable Objective vital signs Vital Sign Date Time Temp Pulse Resp B/P (MAP) Pulse Ox O2 Delivery O2 Flow Rate FiO2 04/18/25 11:45 93 141/77 04/18/25 11:17 18 04/18/25 09:05 98 Nasal Cannula 2.0 04/18/25 09:05 28 04/18/25 08:42 98.3 98.3 Total Intake and Output 04/17/25 04/17/25 04/18/25 15:00 23:00 07:00 Intake Total 250 ml 300 ml Balance 250 ml 300 ml medications Current Medications Medications Dose Ordered Sig/Margarito Route Start Time Stop Time Status Last Admin Dose Admin Aspirin 81 mg DAILY PO 04/05/25 17:40 04/18/25 10:45 81 MG Atorvastatin Calcium 40 mg HS PO 04/05/25 22:00 04/17/25 22:05 40 MG Acetaminophen 650 mg Q6HP PRN PO 04/05/25 17:30 Nitroglycerin 0.4 mg Q5MINP PRN SL 04/05/25 17:30 Ondansetron HCl 4 mg Q4HP PRN IV 04/05/25 17:30 04/17/25 22:15 4 MG Multivit/Ca Carb/ B Cmplx/FA/Prenat 1 tab DAILY PO 04/06/25 10:00 04/18/25 10:43 1 TAB Clopidogrel Bisulfate 75 mg DAILY PO 04/06/25 10:00 04/18/25 10:44 75 MG Quetiapine Fumarate 100 mg DAILY PO 04/06/25 10:00 04/18/25 10:44 100 MG Patient Own Medication 3 cap HS PO 04/05/25 22:00 Levothyroxine Sodium 200 mcg QAM@0600 PO 04/06/25 06:00 04/18/25 05:22 200 MCG Sevelamer HCl 1,600 mg TIDWM PO 04/06/25 08:00 04/18/25 10:44 1,600 MG Pantoprazole Sodium 40 mg DAILY@0600 PO 04/07/25 06:00 04/18/25 05:22 40 MG Albuterol 2.5 mg Q6HPRN PRN NEB 04/06/25 10:30 04/18/25 00:26 2.5 MG Carisoprodol 350 mg TID PO 04/06/25 12:00 04/18/25 13:51 350 MG Carvedilol 12.5 mg Q12HR PO 04/08/25 22:00 04/18/25 10:45 12.5 MG Docusate Sodium 100 mg BID PRN PO 04/09/25 16:45 04/17/25 09:33 100 MG Ergocalciferol 50,000 unit Q7D PO 04/09/25 18:30 04/16/25 18:35 50,000 UNIT Hydralazine HCl 25 mg Q8HR PO 04/10/25 14:00 Hold 04/13/25 06:55 25 MG Patient Own Medication 1 BID ND 04/10/25 22:00 04/17/25 22:05 1 Lactulose 30 ml BID PO 04/10/25 22:00 04/18/25 10:43 30 ML Epoetin Checo-epbx 4,000 unit MWF@2100 [place] 04/12/25 21:00 Hold 04/15/25 21:39 4,000 UNIT Zirconium Oxide 10 gm DAILY PO 04/11/25 20:45 04/18/25 10:43 10 GM Hydromorphone HCl 0.5 mg Q4HP PRN IV 04/15/25 15:00 04/18/25 10:47 0.5 MG Morphine Sulfate 15 mg Q8HR PO 04/15/25 22:00 04/18/25 13:51 15 MG Polyethylene Glycol 17 gm DAILY PO 04/16/25 10:00 04/18/25 10:42 17 GM Calcitriol 1 mcg DAILY PO 04/16/25 11:30 04/18/25 10:46 1 MCG Lidocaine 1 patch DAILY TOP 04/17/25 10:00 04/18/25 10:42 1 PATCH Ciprofloxacin HCl 1 drop Q4HR EACHEYE 04/16/25 14:00 04/21/25 14:00 04/18/25 13:51 1 DROP Bisacodyl 10 mg DAILYP PRN ND 04/17/25 09:45 04/17/25 11:08 10 MG Nifedipine 30 mg DAILY PO 04/17/25 11:30 04/18/25 10:46 30 MG Examination: LUNGS:Normal, CVS:Normal, MSK:Normal laboratory and microbiology Laboratory Tests 04/18/25 06:34 04/16/25 05:48 Test 04/16/25 05:48 Range/Units Serum Glucose 64 L 74-106 mg/dL Microbiology Date/Time Source Procedure Growth Status 04/05/25 23:15 Nose MRSA Screen - Final Methicillin Resistant S.aureus Complete 04/05/25 11:30 Blood Blood Culture - Final NO GROWTH AFTER 5 DAYS OF INCUBATION. Complete Problem List/Assessment/Plan Problem List/Assessment/Plan ESRD on dialysis Acute on chronic respiratory failure, O2 supply Acute on chronic diastolic Congestive heart failure NSTEMI Paraplegia Multifocal lytic lesions on CT scan concerning for metastatic disease Anemia of chronic kidney disease Severe hyperparathyroidism, PTH more than 4000 Renal osteodystrophy Recommendations Continue with UF 2 L as tolerated Epogen 80870 subQ 3 times weekly Strict I&Os Renal diet Cardiology consult Calcitriol 1 mcg p.o. q.day Parathyroid sestamibi nuclear medicine scan consistent with bilateral adenomas Surgery consult for parathyroidectomy We will continue to follow Total care time 25 minutes Plan discussed with: Patient Dietary Evaluation Review Recommendations by RD: Protein Supplementation Comments: 1) Add renal restriction to cardiac diet 2) Initiate Nepro qd 3) Encourage optimal PO intake 4) Follow-up with cardiology, pulmonology, and nephrology 5) Continue to monitor I&O, labs, and skin integrity Expected Outcomes/Goals: 1) appetite and labs to improve 2) wound to improve 3) f/u in 3-5 days DANNY BIGGS MD Apr 18, 2025 13:54
--- NOTE | 2025-04-18 14:06 | DVH ---
EXAM: CT NECK WITH CONTRAST SOFT INDICATION: hyperparathyroisim, parathyroid scan show hyperplasia/adenom Exam Date: 04/18/2025 12:46 PM COMPARISON: CT CERVICAL WITHOUT CONTRAST on DOS: 05/29/23 TECHNIQUE: CT of the neck with intravenous contrast. RADIATION DOSE: CTDIvol: 26.7 mGy, DLP: 732.74 mGy*cm CONTRAST: Type of contrast: Omnipaque 300 Contrast injected: 100 ml FINDINGS: Circumscribed hyperdense nodules along the inferior aspects of both thyroid lobes measuring 1.9 x 1.1 cm on the right lying just posterior to the inferior tip of the right lobe and 1.6 x 1.0 cm on the l eft just anterior to the inferior tip of the left lobe. Indeterminant rounded hyperdense nodule within the midline anterior neck just below the hyoid measuri ng 2.1 cm. The fat planes of the neck appear intact. The airway and larynx are unremarkable. The parotid, submandibular and thyroid glands are unremarkable. The vascular structures of the neck appear patent. The visualized lung apices are clear. The limited visualized portions of the brain are unremarkable. Innumerable lytic lesions are again seen throughout the bone with associated cortical destruction. Bi lateral mastoid effusions. IMPRESSION: Nodules along the inferior tips of both thyroid lobes correspond to the abnormalities noted on recent parathyroid study and likely represent either bilateral parathyroid adenomas or parathyroid hyperpla trung. Innumerable lucencies with cortical destruction throughout the visualized skeleton suggesting either metastatic disease or myeloma. Appearances are typical for a metabolic disorder. Hyperdense nodule within the midline neck below the hyoid bone, possibly ectopic thyroid tissue. Targ eted ultrasound +/- tissue sampling could be considered.
--- NOTE | 2025-04-18 15:40 | DVHPNRES ---
Progress Note Date Seen: Apr 18, 2025 Resident Creating Document: CHANDNI BREWSTER RESIDENT Medical Necessity Reason Pt with a Central, PICC or Fol: Yes Subjective Review of Systems This is a 70-year-old female with past medical history of paraplegia since 2018 after surgery spine, CAD with no stent recent angiogram 3 months ago in [facility] reported normal, HTN, COPD on 2 L home oxygen, CHF with preserved ejection fraction, bed-bound since surgery 2017, bipolar disorder ESRD on hemodialysis Tuesday umbilical hernia, tonsillectomy, hemorrhoids, I and D on her decubitus ulcer sacral region present to ER with complaint of chest pain for 2 weeks which is getting worse before arriving to the hospital. Esterase pain was 9/10 intensity, sharp, intermitted, no aggravating or relieving factor. History of broken right hip 1 year ago and surgery done in [facility] but no prosthesis. Admission patient become hemodynamically unstable and started pressor. Off pressor on 04/07/2025. Past medical history: CAD, CHF, HTN, [place], COPD on 2 L home oxygen, bipolar disorder, ESRD, ventral umbilical hernia, hemorrhoid Past Surgical history: Tonsillectomy Family history cancer-mother with pacemaker and breast cancer, father with colon cancer Social history: X 0 smoker, quit 1 year ago, no ETOH use. Denies any illicit drug Family history lives with family, having caregivers 04/08/2025: Patient seen and evaluated in bedside. Patient complained left upper extremity pain associated with chest pain. No pain on rest but aggravated on movement. Labs for rheumatoid factor, uric acid level we will follow. Physical therapy during discharge. 04/09/2025: Patient seen and evaluated in bedside today. Patient left hand swelling is improving but chest pain on deep palpation. Colace and lactulose ordered for constipation, monitor for bowel movement. Patient currently on oxygen via nasal cannula. 04/10: Patient seen and evaluated in bedside today. Patient chest pain on palpation sternal area. Ordered for bone scan due to CT showed lytic bone lesion. Patient will be benefitted per physical therapy. 04/11: Patient seen and evaluated in bedside. Patient pain better in compared to yesterday switching morphine ER. Bone scan to rule out lytic lesion on CT chest ordered. Follow-up for bowel movement. Denies any fever, abdominal pain, headache. 04/12: Patient seen and evaluated in bedside today. Hemodialysis scheduled today. Patient chest pain is improving. Bone scan done yesterday and IR consulted biopsy right axillary lymph node. 04/15: Patient seen and evaluated in bedside today. Patient scheduled for dialysis and right axillary lymph node biopsy today. Patient having bowel movement yesterday and feeling better in compared to last few days. 04/16: Patient seen and evaluated in bedside. Order lidocaine patch for shoulder pain and eye drops for conjunctivitis. Sestamibi scan pending tomorrow. Surgery on board possible parathyroidectomy. 04/17: Seen and evaluated in bedside today. Bisacodyl suppository order today for constipation. Scheduled for parathyroid scan today. Surgery recommended endocrine evaluation. 04/17: Patient seen and evaluated in bedside today. Patient is still pain on and off, Dilaudid q.3h PRN. CT neck with contrast scheduled today to ruled out podiatry did not. Objective vital signs Vital Sign Date Time Temp Pulse Resp B/P (MAP) Pulse Ox O2 Delivery O2 Flow Rate FiO2 04/18/25 14:54 94 18 132/73 04/18/25 09:05 98 Nasal Cannula 2.0 04/18/25 09:05 28 04/18/25 08:42 98.3 98.3 Total Intake and Output 04/17/25 04/17/25 04/18/25 15:00 23:00 07:00 Intake Total 250 ml 300 ml Balance 250 ml 300 ml medications Current Medications Medications Dose Ordered Sig/Margarito Route Start Time Stop Time Status Last Admin Dose Admin Aspirin 81 mg DAILY PO 04/05/25 17:40 04/18/25 10:45 81 MG Atorvastatin Calcium 40 mg HS PO 04/05/25 22:00 04/17/25 22:05 40 MG Acetaminophen 650 mg Q6HP PRN PO 04/05/25 17:30 Nitroglycerin 0.4 mg Q5MINP PRN SL 04/05/25 17:30 Ondansetron HCl 4 mg Q4HP PRN IV 04/05/25 17:30 04/17/25 22:15 4 MG Multivit/Ca Carb/ B Cmplx/FA/Prenat 1 tab DAILY PO 04/06/25 10:04/18/25 10:43 1 TAB Clopidogrel Bisulfate 75 mg DAILY PO 04/06/25 10:00 04/18/25 10:44 75 MG Quetiapine Fumarate 100 mg DAILY PO 04/06/25 10:00 04/18/25 10:44 100 MG Patient Own Medication 3 cap HS PO 04/05/25 22:00 Levothyroxine Sodium 200 mcg QAM@0600 PO 04/06/25 06:00 04/18/25 05:22 200 MCG Sevelamer HCl 1,600 mg TIDWM PO 04/06/25 08:00 04/18/25 10:44 1,600 MG Pantoprazole Sodium 40 mg DAILY@0600 PO 04/07/25 06:00 04/18/25 05:22 40 MG Albuterol 2.5 mg Q6HPRN PRN NEB 04/06/25 10:30 04/18/25 00:26 2.5 MG Carisoprodol 350 mg TID PO 04/06/25 12:00 04/18/25 13:51 350 MG Carvedilol 12.5 mg Q12HR PO 04/08/25 22:00 04/18/25 10:45 12.5 MG Docusate Sodium 100 mg BID PRN PO 04/09/25 16:45 04/17/25 09:33 100 MG Ergocalciferol 50,000 unit Q7D PO 04/09/25 18:30 04/16/25 18:35 50,000 UNIT Hydralazine HCl 25 mg Q8HR PO 04/10/25 14:00 Hold 04/13/25 06:55 25 MG Patient Own Medication 1 BID CA 04/10/25 22:00 04/17/25 22:05 1 Lactulose 30 ml BID PO 04/10/25 22:00 04/18/25 10:43 30 ML Epoetin Checo-epbx 4,000 unit MWF@2100 SC 04/12/25 21:00 Hold 04/15/25 21:39 4,000 UNIT Zirconium Oxide 10 gm DAILY PO 04/11/25 20:45 04/18/25 10:43 10 GM Hydromorphone HCl 0.5 mg Q4HP PRN IV 04/15/25 15:00 04/18/25 14:54 0.5 MG Morphine Sulfate 15 mg Q8HR PO 04/15/25 22:00 04/18/25 13:51 15 MG Polyethylene Glycol 17 gm DAILY PO 04/16/25 10:00 04/18/25 10:42 17 GM Calcitriol 1 mcg DAILY PO 04/16/25 11:30 04/18/25 10:46 1 MCG Lidocaine 1 patch DAILY TOP 04/17/25 10:00 04/18/25 10:42 1 PATCH Ciprofloxacin HCl 1 drop Q4HR EACHEYE 04/16/25 14:00 04/21/25 14:00 04/18/25 13:51 1 DROP Bisacodyl 10 mg DAILYP PRN CA 04/17/25 09:45 04/17/25 11:08 10 MG Nifedipine 30 mg DAILY PO 04/17/25 11:30 04/18/25 10:46 30 MG Examination Constitutional: Patient lying on bed. On nasal cannula 2 L oxygen ENT: No: Ear pain, Ear discharge, Nose pain, Nose discharge Respiratory: Bilateral equal entry at both lung, chest tender on deep palpation Cardiovascular: No: Chest Pain, Palpitations, Orthopnea, Paroxysmal Noc. Dyspnea, Edema, Gastrointestinal: Tender on deep palpation left lower quadrant, bowel sounds present Genitourinary: Suprapubic area and renal angle non tender on deep palpation Musculoskeletal: bed-bound, right hip and sternal area [id number] tender on deep palpation Skin: tunnel catheter on left side of the chest, right groin triple-lumen catheter Neurological: Paraplegia, decreased sensation bilateral lower extremity. laboratory and microbiology Laboratory Tests 04/18/25 06:34 04/16/25 05:48 Test 04/16/25 05:48 Range/Units Serum Glucose 64 L 74-106 mg/dL Microbiology Date/Time Source Procedure Growth Status 04/05/25 23:15 Nose MRSA Screen - Final Methicillin Resistant S.aureus Complete 04/05/25 11:30 Blood Blood Culture - Final NO GROWTH AFTER 5 DAYS OF INCUBATION. Complete Problem List/Assessment/Plan Problem List/Assessment/Plan This is a 70-year-old female with past medical history of paraplegia since 2018 after surgery spine, CAD with no stent recent angiogram 3 months ago in [facility] reported normal, HTN, COPD on 2 L home oxygen, CHF with preserved ejection fraction, bed-bound since surgery 2018, bipolar disorder ESRD on hemodialysis Tuesday, umbilical hernia, tonsillectomy, hemorrhoids, I and D on her decubitus ulcer sacral region present to ER with complaint of chest pain for 2 weeks which is getting worse before arrived to the hospital. Chest pain was 9/10 intensity, sharp, intermitted, no aggravating or relieving factor. History of broken right hip 1 year ago and surgery done in [facility] but no prosthesis. Admission patient become hemodynamically unstable and started pressor. Off pressor on 04/07/2025. NEUROLOGY Paraplegia since 2018 after surgery in the spine History of bed-bound due to back surgery in 2018 for cyst removal. * Off sedative or pressor * Bed-bound since 2018 * Plan: Physical therapy , fall precaution. CARDIOVASCULAR: Hypotensive shock requiring pressor support Cardiomegaly. NSTEMI likely type 2 secondary to demand ischemia History of CAD, patient denies and claims she does not have any stents in her heart. History of CHF, OH Ascending thoracic aorta is moderately dilated, measuring 3.8 cm. Dyslipidemia * Trop 80s to 90s, on admission * EKG showed no ST-T changes * Septic Shock secondary to pneumonia * Likely heart failure with preserved ejection fraction * Echo on 04/06/2025 shows LVEF 65%, moderately dilated right ventricle and right atrium * Cardiology: Elevated Troponin - trending up, likely demand ischemia in setting of CPR, septic shock. EKG-no ST and T-wave abnormalities. * Plan Continue atorvastatin, aspirin, clopidogrel, nitroglycerin sublingual, nifedipine, hydralazine, carvedilol, lisinopril. * Monitor blood pressure PULMONARY: Acute hypoxic respiratory failure due to COPD exacerbation/pneumonia Bilateral pleural effusions Possible aspiration pneumonia Possible gram positive/Gram-negative pneumonia History of COPD with 2L home O2 History of tobacco use * CT chest on 04/09/2025: Trace bilateral pleural effusions with extensive adjacent atelectasis of the posterior bilateral lower lobes. * Plan: Stopped Zosyn on 04/15/2025, Continue breathing treatment with ipratropium and albuterol. GASTROINTESTINAL: History of GERD History of ventral umbilical hernia. History of tonsillectomy. History of hemorrhoids. Sebaceous cyst abdominal wall Elevated ALP Chronic constipation likely due to bed-bound US soft tissue abdomen: 2x1x1 cm subcutaneous cystic mass which could be represent a sebaceous cyst. * Plan: :Continue Protonix , lactulose . GENITOURINARY: CKD on HD HD on Tuesday Nephrology consult appreciated Hyponatremia Hyperkalemia * CT on 04/09/2025: Marked bilateral renal atrophy and cortical scarring / thinning. * Nephrology consult appreciated * plan:Continue savelamer, hemodialysis. HEMATOLOGY: Questionable metastatic disease Anemia of chronic disease secondary to renal failure Leukopenia Thrombocytopenia * CT chest on 04/09/2025: Multifocal lytic lesions throughout the visualized axial and appendicular skeleton involving the vertebral bodies of the thoracic spine, bilateral humeral heads and bilateral concerning for metastatic disease. * Bone scan on 03/12/2025: Indeterminate diffuse increased activity in the calvarium, maxilla and mandible. This may be related to metastatic disease or metabolic process or Paget's disease. Few foci of increased activity in the right femur and right inferior pubic ramus. This may be related to metastatic disease or trauma. * Ferritin 831.3, iron 83, TIBC is 162, % saturation 26.5 on admission * Plan: Monitor cbc, monitor for signs symptoms of active bleeding. METABOLIC: Hypothyroidism Vitamin D deficiency Hyperparathyroidism- secondary * PTH 4192.3 * Thyroid USG-no significant abnormality. * THS 8.06, free T4 0.49 * Lactic acid 1.0 * Hemoglobin A1c 4.5 * Parathyroid scan on 04/17/2025: Mild retained uptake at both lower poles which may suggest parathyroid hyperplasia or bilateral adenomas. * CT neck with contrast on 04/18/2025: Nodules along the inferior tips of both thyroid lobes correspond to the abnormalities noted on recent parathyroid study and likely represent either bilateral parathyroid adenomas or parathyroid hyperplasia. Innumerable lucencies with cortical destruction throughout the visualized skeleton suggesting either metastatic disease or myeloma. Appearances are typical for a metabolic disorder. Hyperdense nodule within the midline neck below the hyoid bone, possibly ectopic thyroid tissue. Targeted ultrasound +/- tissue sampling could be considered. * Surgery consult appreciated . * Plan:Continue levothyroxine, vitamin D3, CT neck with contrast. Started calcitonin today. INFECTIOUS DISEASE: History of aspiration pneumonia Possible aspiration pneumonia Positive MRSA screen, mupirocin SIRS (Leukopenia and tachycardia) Right axillary lymphadenopathy/mass Bilateral conjunctivitis * Blood culture x2 negative * CRP 9.70 * ESR 50 * plan: Discontinued Zosyn on 04/15/2025. * Biopsy right axillary lymph node by IR unable to do because of very small size. Ciprofloxacin eyedrops. 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 History of chronic fracture of the right inferior pubic ramus. History of paraplegia. Gait instability Lytic bony lesion Likely Renal osteodystrophy Questionable metastatic disease Possible Paget's disease of the bone Left shoulder and chronic low-back pain * CT chest on 04/09/2025: Multifocal lytic lesions involving the vertebral bodies, bilateral humeral heads concerning for metastatic disease. * Bone scan on 04/13/2025: Indeterminate diffuse increased activity in the calvarium, maxilla and mandible, may be related to metastatic disease or metabolic process or Paget's disease. * Patient bed-bound since then * Uric acid level 4.1 * Rheumatoid factor<10 * Plan to continue pain management with morphine 15 mg ER every 8 hour and Dilaudid. Lidocaine patch * Possible parathyroidectomy, surgery on board PSYCHIATRIC History of bipolar disorder Anxiety disorder * Plan continue alprazolam and quetiapine History of sacral ulcer History of I&D for decubitus ulcer. Sacral area healing scar tissue with no active discharge or signs symptoms of inflammation. DIET: Renal DVT prophylax: Lovenox GI prophylaxis: Protonix Bowel regimen: Lactulose, MiraLax and bisacodyl suppository as needed. Code status: Full code.-advanced care discussion 17 minutes spent. LINES/DRAINS/ACCESS: IV access: Left-sided tunneled catheter, right groin triple-lumen catheter. Drips: s/p Levophed, currently not on any drips DISPOSITION: Telemetry Patient's status discussed with patient daughter ,Maryam-over the phone, caregiver, nurse. More than 27 minute spent with patient. Case discussed with Dr. iGll Plan discussed with: Patient, Daughter, Other (Nurse,) My Orders My Orders Orders - CHANDNI BREWSTER RESIDENT Procedure Category Date Status Time Neck With Contrast CT 04/18/25 Resulted Soft 09:17 Communication Order ORDERS 04/18/25 Transmitted 09:26 Dietary Evaluation Review Recommendations by RD: Protein Supplementation Comments: 1) Add renal restriction to cardiac diet 2) Initiate Nepro qd 3) Encourage optimal PO intake 4) Follow-up with cardiology, pulmonology, and nephrology 5) Continue to monitor I&O, labs, and skin integrity Expected Outcomes/Goals: 1) appetite and labs to improve 2) wound to improve 3) f/u in 3-5 days Date of Service: Apr 18, 2025 Billing Provider: LUANNE GILL MD Common Visit Codes: [id number] INP/OBS CARE(HIGH) CHANDNI BREWSTER RESIDENT Apr 18, 2025 15:40 LUANNE GILL MD Apr 20, 2025 11:53
[2025-04-18] MEDS: HYDROmorphone HCL 2 MG/ML VL/or syr IV PRN (19:10)
[2025-04-18] MEDS: LIDOCAINE 5% TOPICAL PATCH TOP ONE (21:58)
[2025-04-18] MEDS: HEPARIN SODIUM (PORCINE) 5000 UNITS/ML 1ML VIAL IV ONE (23:07)
[2025-04-18] MEDS: HEPARIN 1,000 UNITS/ml 1ML VIAL IV ONE (23:07)
--- NOTE | 2025-04-18 23:43 | DVHPN2 ---
Progress Note - Dictate Date Seen: Apr 18, 2025 Medical Necessity Reason Pt with a Central, PICC or Fol: Yes Subjective Patient was seen and evaluated in follow up. Patient is on 2 LPM NC. The patient has been refusing routine turning/repositioning due to being in pain. HGB 7.9,HCT 23.8. Parathyroid scan showed mild retained uptake at both lower poles which may suggest parathyroid hyperplasia or bilateral adenomas. CT ST neck revealed nodules along the inferior tips of both thyroid lobes correspond to the abnormalities noted on recent parathyroid study and likely represent either bilateral parathyroid adenomas or parathyroid hyperplasia. Innumerable lucencies with cortical destruction throughout the visualized skeleton suggesting either metastatic disease or myeloma. Appearances are typical for a metabolic disorder. Hyperdense nodule within the midline neck below the hyoid bone, possibly ectopic thyroid tissue. Telemetry reviewed. vital signs Vital Sign Date Time Temp Pulse Resp B/P (MAP) Pulse Ox O2 Delivery O2 Flow Rate FiO2 04/18/25 11:45 93 141/77 04/18/25 11:17 18 04/18/25 09:05 98 Nasal Cannula 2.0 04/18/25 09:05 28 04/18/25 08:42 98.3 98.3 Total Intake and Output 04/17/25 04/17/25 04/18/25 15:00 23:00 07:00 Intake Total 250 ml 300 ml Balance 250 ml 300 ml medications Current Medications Medications Dose Ordered Sig/Margarito Route Start Time Stop Time Status Last Admin Dose Admin Aspirin 81 mg DAILY PO 04/05/25 17:40 04/18/25 10:45 81 MG Atorvastatin Calcium 40 mg HS PO 04/05/25 22:00 04/17/25 22:05 40 MG Acetaminophen 650 mg Q6HP PRN PO 04/05/25 17:30 Nitroglycerin 0.4 mg Q5MINP PRN SL 04/05/25 17:30 Ondansetron HCl 4 mg Q4HP PRN IV 04/05/25 17:30 04/17/25 22:15 4 MG Multivit/Ca Carb/ B Cmplx/FA/Prenat 1 tab DAILY PO 04/06/25 10:00 04/18/25 10:43 1 TAB Clopidogrel Bisulfate 75 mg DAILY PO 04/06/25 10:00 04/18/25 10:44 75 MG Quetiapine Fumarate 100 mg DAILY PO 04/06/25 10:00 04/18/25 10:44 100 MG Patient Own Medication 3 cap HS PO 04/05/25 22:00 Levothyroxine Sodium 200 mcg QAM@0600 PO 04/06/25 06:00 04/18/25 05:22 200 MCG Sevelamer HCl 1,600 mg TIDWM PO 04/06/25 08:00 04/18/25 10:44 1,600 MG Pantoprazole Sodium 40 mg DAILY@0600 PO 04/07/25 06:00 04/18/25 05:22 40 MG Albuterol 2.5 mg Q6HPRN PRN NEB 04/06/25 10:30 04/18/25 00:26 2.5 MG Carisoprodol 350 mg TID PO 04/06/25 12:00 04/18/25 13:51 350 MG Carvedilol 12.5 mg Q12HR PO 04/08/25 22:00 04/18/25 10:45 12.5 MG Docusate Sodium 100 mg BID PRN PO 04/09/25 16:45 04/17/25 09:33 100 MG Ergocalciferol 50,000 unit Q7D PO 04/09/25 18:30 04/16/25 18:35 50,000 UNIT Hydralazine HCl 25 mg Q8HR PO 04/10/25 14:00 Hold 04/13/25 06:55 25 MG Patient Own Medication 1 BID OH 04/10/25 22:00 04/17/25 22:05 1 Lactulose 30 ml BID PO 04/10/25 22:00 04/18/25 10:43 30 ML Epoetin Checo-epbx 4,000 unit MWF@2100 [place] 04/12/25 21:00 Hold 04/15/25 21:39 4,000 UNIT Zirconium Oxide 10 gm DAILY PO 04/11/25 20:45 04/18/25 10:43 10 GM Hydromorphone HCl 0.5 mg Q4HP PRN IV 04/15/25 15:00 04/18/25 10:47 0.5 MG Morphine Sulfate 15 mg Q8HR PO 04/15/25 22:00 04/18/25 13:51 15 MG Polyethylene Glycol 17 gm DAILY PO 04/16/25 10:00 04/18/25 10:42 17 GM Calcitriol 1 mcg DAILY PO 04/16/25 11:30 04/18/25 10:46 1 MCG Lidocaine 1 patch DAILY TOP 04/17/25 10:00 04/18/25 10:42 1 PATCH Ciprofloxacin HCl 1 drop Q4HR EACHEYE 04/16/25 14:00 04/21/25 14:00 04/18/25 13:51 1 DROP Bisacodyl 10 mg DAILYP PRN [place] 04/17/25 09:45 04/17/25 11:08 10 MG Nifedipine 30 mg DAILY PO 04/17/25 11:30 04/18/25 10:46 30 MG objective GENERAL: Alert and oriented x 3. No acute distress. Paraplegic. EYES: PERRL, EOMI. Anicteric. HENT: Moist mucous membranes. LUNGS: Clear to auscultation bilaterally. CARDIOVASCULAR: Regular rate and rhythm. ABDOMEN: Soft, nontender and nondistended. EXTREMITIES: No edema. NEUROLOGIC: No focal neurological deficits. SKIN: Wounds (Decubitus). laboratory and microbiology Laboratory Tests 04/18/25 06:34 04/16/25 05:48 Test 04/16/25 05:48 Range/Units Serum Glucose 64 L 74-106 mg/dL Problem List NSTEMI likely type 2. Anemia likely due to chronic renal failure. Cardiomegaly. Probable pneumonia. Elevated ALP. Hyponatremia. Hyperkalemia. Thrombocytopenia. Acute on chronic renal failure on dialysis (M/W/F). Acute hypoxic respiratory failure on supportive oxygen. 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 History of chronic fracture of the right inferior pubic ramus. History of paraplegia. History of CAD, patient denies and claims she does not have any stents in her heart. History of hypertension. History of COPD. History of CHF. History of bed-bound due to back surgery in 2018 for cyst removal. History of IN. History of bipolar disease. History of ventral umbilical hernia. History of tonsillectomy. History of hemorrhoids. History of I&D for decubitus ulcer. History of tobacco use. Assessment/Plan Continued all current supportive medical care. Nifedipine,Coreg. Aspirin, Plavix. GI prophylactics. Dilaudid and Morphine for pain management. Additional plan as per the hospital course. Dietary Evaluation Review Recommendations by RD: Protein Supplementation Comments: 1) Add renal restriction to cardiac diet 2) Initiate Nepro qd 3) Encourage optimal PO intake 4) Follow-up with cardiology, pulmonology, and nephrology 5) Continue to monitor I&O, labs, and skin integrity Expected Outcomes/Goals: 1) appetite and labs to improve 2) wound to improve 3) f/u in 3-5 days Plan discussed with: Patient WENDY COREAS MD Apr 18, 2025 14:50
[2025-04-19] VITALS (14 sets, daily range): BP systolic 77–148; BP diastolic 43–79; PULSE 79–97; RESP 16–20; TEMP 98.5–100.3; O2SAT 93–100
[2025-04-19 06:31] LABS: Hemoglobin 8.2 g/dL (12.2-16.2)
[2025-04-19 06:34] LABS: Hematocrit 25.4 % (36.0-46.0); Mean Corpuscular Hemoglobin 32.3 pg (28.0-32.0); Mean Corpuscular Volume 100.4 fL (80.0-100.0)
[2025-04-19 06:45] LABS: Anion Gap 13 (5-15); Calcium 9.3 mg/dL (8.7-10.4); Carbon Dioxide 28 mmol/L (20-31); Chloride 100 mmol/L (98-107); Potassium 3.8 mmol/L (3.5-5.1); Sodium 141 mmol/L (136-145)
[2025-04-19 06:51] LABS: Glucose 86 mg/dL (74-106)
[2025-04-19 06:52] LABS: BUN/Creatinine Ratio 4.1 (10.0-20.0)
[2025-04-19 06:56] LABS: Blood Urea Nitrogen 8 mg/dL (9-23)
[2025-04-19 08:16] LABS: Total Cells Counted 100.0 (100)
--- NOTE | 2025-04-19 09:50 | DVHPN2 ---
Progress Note Date Seen: Apr 19, 2025 Medical Necessity Reason Pt with a Central, PICC or Fol: Yes Subjective Patient reports: Other (Complain of fever and low blood pressure) Other Systems: Patient seen and examined by myself today in follow-up Objective vital signs Vital Sign Date Time Temp Pulse Resp B/P (MAP) Pulse Ox O2 Delivery O2 Flow Rate FiO2 04/19/25 09:00 100.0 87 19 94/55 (68) 93 100.0 04/19/25 07:59 Nasal Cannula* 2 28 Total Intake and Output 04/18/25 04/18/25 04/19/25 15:00 23:00 07:00 Intake Total 400 ml 240 ml Balance 400 ml 240 ml medications Current Medications Medications Dose Ordered Sig/Margarito Route Start Time Stop Time Status Last Admin Dose Admin Aspirin 81 mg DAILY PO 04/05/25 17:40 04/18/25 10:45 81 MG Atorvastatin Calcium 40 mg HS PO 04/05/25 22:00 04/18/25 23:20 40 MG Acetaminophen 650 mg Q6HP PRN PO 04/05/25 17:30 Nitroglycerin 0.4 mg Q5MINP PRN SL 04/05/25 17:30 Ondansetron HCl 4 mg Q4HP PRN IV 04/05/25 17:30 04/18/25 19:09 4 MG Multivit/Ca Carb/ B Cmplx/FA/Prenat 1 tab DAILY PO 04/06/25 10:00 04/18/25 10:43 1 TAB Clopidogrel Bisulfate 75 mg DAILY PO 04/06/25 10:00 04/18/25 10:44 75 MG Quetiapine Fumarate 100 mg DAILY PO 04/06/25 10:00 04/18/25 10:44 100 MG Patient Own Medication 3 cap HS PO 04/05/25 22:00 Levothyroxine Sodium 200 mcg QAM@0600 PO 04/06/25 06:00 04/19/25 05:59 200 MCG Sevelamer HCl 1,600 mg TIDWM PO 04/06/25 08:00 04/19/25 08:31 1,600 MG Pantoprazole Sodium 40 mg DAILY@0600 PO 04/07/25 06:00 04/19/25 05:58 40 MG Albuterol 2.5 mg Q6HPRN PRN NEB 04/06/25 10:30 10/9/25 00:26 2.5 MG Carisoprodol 350 mg TID PO 04/06/25 12:00 04/19/25 05:58 350 MG Carvedilol 12.5 mg Q12HR PO 04/08/25 22:00 04/18/25 23:19 12.5 MG Docusate Sodium 100 mg BID PRN PO 04/09/25 16:45 04/18/25 23:33 100 MG Ergocalciferol 50,000 unit Q7D PO 04/09/25 18:30 04/16/25 18:35 50,000 UNIT Hydralazine HCl 25 mg Q8HR PO 04/10/25 14:00 Hold 04/13/25 06:55 25 MG Patient Own Medication 1 BID [place] 04/10/25 22:00 04/17/25 22:05 1 Lactulose 30 ml BID PO 04/10/25 22:00 04/18/25 10:43 30 ML Epoetin Checo-epbx 4,000 unit MWF@2100 [place] 04/12/25 21:00 04/15/25 21:39 4,000 UNIT Zirconium Oxide 10 gm DAILY PO 04/11/25 20:45 04/18/25 10:43 10 GM Morphine Sulfate 15 mg Q8HR PO 04/15/25 22:00 04/18/25 23:20 15 MG Polyethylene Glycol 17 gm DAILY PO 04/16/25 10:00 04/18/25 10:42 17 GM Calcitriol 1 mcg DAILY PO 04/16/25 11:30 04/18/25 10:46 1 MCG Lidocaine 1 patch DAILY TOP 04/17/25 10:00 Hold 04/17/25 09:34 1 PATCH Ciprofloxacin HCl 1 drop Q4HR EACHEYE 04/16/25 14:00 04/21/25 14:00 04/19/25 05:59 1 DROP Bisacodyl 10 mg DAILYP PRN [place] 04/17/25 09:45 04/17/25 11:08 10 MG Nifedipine 30 mg DAILY PO 04/17/25 11:30 04/18/25 10:46 30 MG Hydromorphone HCl 0.5 mg Q3HP PRN IV 04/18/25 15:45 04/18/25 23:22 0.5 MG Examination: LUNGS:Normal, CVS:Normal, MSK:Normal laboratory and microbiology Laboratory Tests 04/19/25 04:56 Test 04/19/25 04:56 Range/Units Serum Glucose 86 74-106 mg/dL Microbiology Date/Time Source Procedure Growth Status 04/05/25 23:15 Nose MRSA Screen - Final Methicillin Resistant S.aureus Complete 04/05/25 11:30 Blood Blood Culture - Final NO GROWTH AFTER 5 DAYS OF INCUBATION. Complete Problem List/Assessment/Plan Problem List/Assessment/Plan ESRD on dialysis Acute on chronic respiratory failure, O2 supply Acute on chronic diastolic Congestive heart failure NSTEMI Paraplegia Multifocal lytic lesions on CT scan concerning for metastatic disease Anemia of chronic kidney disease Severe hyperparathyroidism, PTH more than 4000 Renal osteodystrophy Fever Hypotension Recommendations Hemodialysis tomorrow Epogen 65646 subQ 3 times weekly Strict I&Os Renal diet Blood cultures Vancomycin IV per pharmacy Hold blood pressure medicine Cardiology consult Calcitriol 1 mcg p.o. q.day Parathyroid sestamibi nuclear medicine scan consistent with bilateral adenomas Surgery consult for parathyroidectomy We will continue to follow Total care time 25 minutes Plan discussed with: Patient My Orders My Orders Orders - DANNY BIGGS MD Procedure Category Date Status Time * Cardiology Consult CONS 04/18/25 Transmitted 19:30 Blood Culture PAMELA 04/19/25 Verified 09:44 Hemodialysis Orders ORDERS 04/20/25 Verified 07:00 Dialysis Nursing [facility] 04/20/25 Verified Message 07:00 Heparin Sodium PHA 04/20/25 Verified (Porcine) 07:00 Heparin Sodium PHA 04/20/25 Verified (Porcine) 07:00 Sodium Chloride 0.9% PHA 04/20/25 Verified 07:00 Document Fluid Input JODI 04/20/25 Verified And Outpu 07:00 Retacrit 10,000unit PHA 04/20/25 Verified Sc Xone 21:00 Dietary Evaluation Review Recommendations by RD: Protein Supplementation Comments: 1) Add renal restriction to cardiac diet 2) Initiate Nepro qd 3) Encourage optimal PO intake 4) Follow-up with cardiology, pulmonology, and nephrology 5) Continue to monitor I&O, labs, and skin integrity Expected Outcomes/Goals: 1) appetite and labs to improve 2) wound to improve 3) f/u in 3-5 days DANNY BIGGS MD Apr 19, 2025 09:50
[2025-04-19] MEDS ORDERED: VANCOMYCIN PER PHARMACY 0 MG IV SCH (10:00)
--- NOTE | 2025-04-19 11:12 | DVHPNRES ---
Progress Note Date Seen: Apr 19, 2025 Resident Creating Document: CHANDNI BREWSTER RESIDENT Medical Necessity Reason Pt with a Central, PICC or Fol: Yes Subjective Review of Systems This is a 70-year-old female with past medical history of paraplegia since 2018 after surgery spine, CAD with no stent recent angiogram 3 months ago in [facility] reported normal, HTN, COPD on 2 L home oxygen, CHF with preserved ejection fraction, bed-bound since surgery 2017, bipolar disorder ESRD on hemodialysis Tuesday umbilical hernia, tonsillectomy, hemorrhoids, I and D on her decubitus ulcer sacral region present to ER with complaint of chest pain for 2 weeks which is getting worse before arriving to the hospital. Esterase pain was 9/10 intensity, sharp, intermitted, no aggravating or relieving factor. History of broken right hip 1 year ago and surgery done in [facility] but no prosthesis. Admission patient become hemodynamically unstable and started pressor. Off pressor on 04/07/2025. Past medical history: CAD, CHF, HTN, [place], COPD on 2 L home oxygen, bipolar disorder, ESRD, ventral umbilical hernia, hemorrhoid Past Surgical history: Tonsillectomy Family history cancer-mother with pacemaker and breast cancer, father with colon cancer Social history: X 0 smoker, quit 1 year ago, no ETOH use. Denies any illicit drug Family history lives with family, having caregivers 04/08/2025: Patient seen and evaluated in bedside. Patient complained left upper extremity pain associated with chest pain. No pain on rest but aggravated on movement. Labs for rheumatoid factor, uric acid level we will follow. Physical therapy during discharge. 04/09/2025: Patient seen and evaluated in bedside today. Patient left hand swelling is improving but chest pain on deep palpation. Colace and lactulose ordered for constipation, monitor for bowel movement. Patient currently on oxygen via nasal cannula. 04/10: Patient seen and evaluated in bedside today. Patient chest pain on palpation sternal area. Ordered for bone scan due to CT showed lytic bone lesion. Patient will be benefitted per physical therapy. 04/11: Patient seen and evaluated in bedside. Patient pain better in compared to yesterday switching morphine ER. Bone scan to rule out lytic lesion on CT chest ordered. Follow-up for bowel movement. Denies any fever, abdominal pain, headache. 04/12: Patient seen and evaluated in bedside today. Hemodialysis scheduled today. Patient chest pain is improving. Bone scan done yesterday and IR consulted biopsy right axillary lymph node. 04/15: Patient seen and evaluated in bedside today. Patient scheduled for dialysis and right axillary lymph node biopsy today. Patient having bowel movement yesterday and feeling better in compared to last few days. 04/16: Patient seen and evaluated in bedside. Order lidocaine patch for shoulder pain and eye drops for conjunctivitis. Sestamibi scan pending tomorrow. Surgery on board possible parathyroidectomy. 04/17: Seen and evaluated in bedside today. Bisacodyl suppository order today for constipation. Scheduled for parathyroid scan today. Surgery recommended endocrine evaluation. 04/18: Patient seen and evaluated in bedside today. Patient is still pain on and off, Dilaudid q.3h PRN. CT neck with contrast scheduled today to ruled out podiatry did not. 04/19: Seen and evaluated in bedside today. Hold blood pressure for now due to low BP. Nephrology consult appreciated. Surgery consult for possible parathyroidectomy due to CT neck shows parathyroid adenoma/hyperplasia. Patient having temperature 100.3, BCx ordered. Objective vital signs Vital Sign Date Time Temp Pulse Resp B/P (MAP) Pulse Ox O2 Delivery O2 Flow Rate FiO2 04/19/25 09:00 100.0 87 19 94/55 (68) 93 100.0 04/19/25 07:59 Nasal Cannula* 2 28 Total Intake and Output 04/18/25 04/18/25 04/19/25 15:00 23:00 07:00 Intake Total 400 ml 240 ml Balance 400 ml 240 ml medications Current Medications Medications Dose Ordered Sig/Margarito Route Start Time Stop Time Status Last Admin Dose Admin Aspirin 81 mg DAILY PO 04/05/25 17:40 04/18/25 10:45 81 MG Atorvastatin Calcium 40 mg HS PO 04/05/25 22:00 04/18/25 23:20 40 MG Acetaminophen 650 mg Q6HP PRN PO 04/05/25 17:30 Nitroglycerin 0.4 mg Q5MINP PRN SL 04/05/25 17:30 Ondansetron HCl 4 mg Q4HP PRN IV 04/05/25 17:30 04/18/25 19:09 4 MG Multivit/Ca Carb/ B Cmplx/FA/Prenat 1 tab DAILY PO 04/06/25 10:00 04/18/25 10:43 1 TAB Clopidogrel Bisulfate 75 mg DAILY PO 04/06/25 10:00 04/18/25 10:44 75 MG Quetiapine Fumarate 100 mg DAILY PO 04/06/25 10:00 04/18/25 10:44 100 MG Patient Own Medication 3 cap HS PO 04/05/25 22:00 Levothyroxine Sodium 200 mcg QAM@0600 PO 04/06/25 06:00 04/19/25 05:59 200 MCG Sevelamer HCl 1,600 mg TIDWM PO 04/06/25 08:00 04/19/25 08:31 1,600 MG Pantoprazole Sodium 40 mg DAILY@0600 PO 04/07/25 06:00 04/19/25 05:58 40 MG Albuterol 2.5 mg Q6HPRN PRN NEB 04/06/25 10:30 04/18/25 00:26 2.5 MG Carisoprodol 350 mg TID PO 04/06/25 12:00 04/19/25 05:58 350 MG Docusate Sodium 100 mg BID PRN PO 04/09/25 16:45 04/18/25 23:33 100 MG Ergocalciferol 50,000 unit Q7D PO 04/09/25 18:30 04/16/25 18:35 50,000 UNIT Patient Own Medication 1 BID MN 04/10/25 22:00 04/17/25 22:05 1 Lactulose 30 ml BID PO 04/10/25 22:00 04/18/25 10:43 30 ML Epoetin Checo-epbx 4,000 unit MWF@2100 GA 04/12/25 21:00 Hold 04/15/25 21:39 4,000 UNIT Morphine Sulfate 15 mg Q8HR PO 04/15/25 22:00 04/18/25 23:20 15 MG Polyethylene Glycol 17 gm DAILY PO 04/16/25 10:00 04/18/25 10:42 17 GM Calcitriol 1 mcg DAILY PO 04/16/25 11:30 04/18/25 10:46 1 MCG Lidocaine 1 patch DAILY TOP 04/17/25 10:00 Hold 04/17/25 09:34 1 PATCH Ciprofloxacin HCl 1 drop Q4HR EACHEYE 04/16/25 14:00 04/21/25 14:00 04/19/25 05:59 1 DROP Bisacodyl 10 mg DAILYP PRN MN 04/17/25 09:45 04/17/25 11:08 10 MG Hydromorphone HCl 0.5 mg Q3HP PRN IV 04/18/25 15:45 04/18/25 23:22 0.5 MG Vancomycin HCl 0 ml @ 0 mls/hr UD IV 04/19/25 10:00 Examination Constitutional: Patient lying on bed. On nasal cannula 2 L oxygen ENT: No: Ear pain, Ear discharge, Nose pain, Nose discharge Respiratory: Bilateral equal entry at both lung, chest tender on deep palpation Cardiovascular: No: Chest Pain, Palpitations, Orthopnea, Paroxysmal Noc. Dyspnea, Edema, Gastrointestinal: Tender on deep palpation left lower quadrant, bowel sounds present Genitourinary: Suprapubic area and renal angle non tender on deep palpation Musculoskeletal: bed-bound, right hip and sternal area [id number] tender on deep palpation Skin: tunnel catheter on left side of the chest, right groin triple-lumen catheter. No swelling, hematoma noted catheter site Neurological: Paraplegia, decreased sensation bilateral lower extremity. laboratory and microbiology Laboratory Tests 04/19/25 04:56 Test 04/19/25 04:56 Range/Units Serum Glucose 86 74-106 mg/dL Microbiology Date/Time Source Procedure Growth Status 04/05/25 23:15 Nose MRSA Screen - Final Methicillin Resistant S.aureus Complete 04/05/25 11:30 Blood Blood Culture - Final NO GROWTH AFTER 5 DAYS OF INCUBATION. Complete Problem List/Assessment/Plan Problem List/Assessment/Plan This is a 70-year-old female with past medical history of paraplegia since 2018 after surgery spine, CAD with no stent recent angiogram 3 months ago in [facility] reported normal, HTN, COPD on 2 L home oxygen, CHF with preserved ejection fraction, bed-bound since surgery 2018, bipolar disorder ESRD on hemodialysis Tuesday, umbilical hernia, tonsillectomy, hemorrhoids, I and D on her decubitus ulcer sacral region present to ER with complaint of chest pain for 2 weeks which is getting worse before arrived to the hospital. Chest pain was 9/10 intensity, sharp, intermitted, no aggravating or relieving factor. History of broken right hip 1 year ago and surgery done in [facility] but no prosthesis. Admission patient become hemodynamically unstable and started pressor. Off pressor on 04/07/2025. NEUROLOGY Paraplegia since 2018 after surgery in the spine History of bed-bound due to back surgery in 2018 for cyst removal. Off sedative or pressor Bed-bound since 2018 Plan: Physical therapy , fall precaution. CARDIOVASCULAR: Hypotensive shock requiring pressor support Cardiomegaly. NSTEMI likely type 2 secondary to demand ischemia History of CAD, patient denies and claims she does not have any stents in her heart. History of CHF, [place] Ascending thoracic aorta is moderately dilated, measuring 3.8 cm. Dyslipidemia Trop 80s to 90s, on admission EKG showed no ST-T changes Septic Shock secondary to pneumonia Likely heart failure with preserved ejection fraction Echo on 04/06/2025 shows LVEF 65%, moderately dilated right ventricle and right atrium Cardiology: Elevated Troponin - trending up, likely demand ischemia in setting of CPR, septic shock. EKG-no ST and T-wave abnormalities. Plan Continue atorvastatin, aspirin, clopidogrel, nitroglycerin sublingual, nifedipine, hydralazine, carvedilol, lisinopril. Monitor blood pressure Hold blood pressure medicine for now due to low BP. PULMONARY: Acute hypoxic respiratory failure due to COPD exacerbation/pneumonia Bilateral pleural effusions Possible aspiration pneumonia Possible gram positive/Gram-negative pneumonia History of COPD with 2L home O2 History of tobacco use CT chest on 04/09/2025: Trace bilateral pleural effusions with extensive adjacent atelectasis of the posterior bilateral lower lobes. Plan: Stopped Zosyn on 04/15/2025, Continue breathing treatment with ipratropium and albuterol. GASTROINTESTINAL: History of GERD History of ventral umbilical hernia. History of tonsillectomy. History of hemorrhoids. Sebaceous cyst abdominal wall Elevated ALP Chronic constipation likely due to bed-bound/immobilization US soft tissue abdomen: 2x1x1 cm subcutaneous cystic mass which could be represent a sebaceous cyst. Plan: :Continue Protonix , lactulose . GENITOURINARY: CKD on HD HD on Tuesday Nephrology consult appreciated Hyponatremia Hyperkalemia CT on 04/09/2025: Marked bilateral renal atrophy and cortical scarring / thinning. Nephrology consult appreciated plan:Continue savelamer, hemodialysis. HEMATOLOGY: Questionable metastatic disease Anemia of chronic disease secondary to renal failure Leukopenia Thrombocytopenia CT chest on 04/09/2025: Multifocal lytic lesions throughout the visualized axial and appendicular skeleton involving the vertebral bodies of the thoracic spine, bilateral humeral heads and bilateral concerning for metastatic disease. Bone scan on 03/12/2025: Indeterminate diffuse increased activity in the calvarium, maxilla and mandible. This may be related to metastatic disease or metabolic process or Paget's disease. Few foci of increased activity in the right femur and right inferior pubic ramus. This may be related to metastatic disease or trauma. Ferritin 831.3, iron 83, TIBC is 162, % saturation 26.5 on admission Plan: Monitor cbc, monitor for signs symptoms of active bleeding. METABOLIC: Hypothyroidism Vitamin D deficiency Hyperparathyroidism- secondary PTH 4192.3 Thyroid USG-no significant abnormality. THS 8.06, free T4 0.49 Lactic acid 1.0 Hemoglobin A1c 4.5 Parathyroid skin on 04/17/2025: Mild retained uptake at both lower poles which may suggest parathyroid hyperplasia or bilateral adenomas. CT neck with contrast on 04/18/2025: Nodules along the inferior tips of both thyroid lobes correspond to the abnormalities noted on recent parathyroid study and likely represent either bilateral parathyroid adenomas or parathyroid hyperplasia. Innumerable lucencies with cortical destruction throughout the visualized skeleton suggesting either metastatic disease or myeloma. Appearances are typical for a metabolic disorder. Hyperdense nodule within the midline neck below the hyoid bone, possibly ectopic thyroid tissue. Targeted ultrasound +/- tissue sampling could be considered. Surgery consult appreciated . Plan:Continue levothyroxine, vitamin D3, CT neck with contrast. Continue calcitonin . INFECTIOUS DISEASE: History of aspiration pneumonia Possible aspiration pneumonia Positive MRSA screen, mupirocin SIRS (Leukopenia and tachycardia) Right axillary lymphadenopathy/mass Bilateral conjunctivitis Blood culture x2 negative CRP 9.70 ESR 50 plan: Discontinued Zosyn on 04/15/2025. Biopsy right axillary lymph node by IR unable to do because of very small size. Ciprofloxacin eyedrops. Blood culture order 04/19/2025 MUSCULOSKELETAL History of spinal surgery 2018 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 . History of chronic fracture of the right inferior pubic ramus. History of paraplegia. Gait instability Lytic bony lesion Likely Renal osteodystrophy Questionable metastatic disease Possible Paget's disease of the bone Chronic Left shoulder and chronic low-back pain CT chest on 04/09/2025: Multifocal lytic lesions involving the vertebral bodies, bilateral humeral heads concerning for metastatic disease. Bone scan on 04/13/2025: Indeterminate diffuse increased activity in the calvarium, maxilla and mandible, may be related to metastatic disease or metabolic process or Paget's disease. Patient bed-bound since then Uric acid level 4.1 Rheumatoid factor<10 Plan : continue pain management with morphine 15 mg ER every 8 hour and Dilaudid. Lidocaine patch Possible parathyroidectomy, surgery on board. PSYCHIATRIC History of bipolar disorder Anxiety disorder Plan : continue alprazolam and quetiapine History of sacral ulcer History of I&D for decubitus ulcer. Sacral area healing scar tissue with no active discharge or signs symptoms of inflammation. DIET: Renal DVT prophylax: Lovenox GI prophylaxis: Protonix Bowel regimen: Lactulose, MiraLax and bisacodyl suppository as needed. Code status: Full code.-advanced care discussion 15 minutes spent. LINES/DRAINS/ACCESS: IV access: Left-sided tunneled catheter, right groin triple-lumen catheter. Drips: s/p Levophed, currently not on any drips DISPOSITION: Telemetry Patient's status discussed with patient daughter ,Maryam-over the phone, caregiver, nurse. More than 23 minute spent with patient. Case discuss with Dr. Mcclellan Plan discussed with: Patient, Daughter (maryam), Other (Nurse) My Orders My Orders Orders - CHANDNI BREWSTER Procedure Category Date Status Time Hydromorphone PHA 04/18/25 In Process Injection (Dilaudid 15:45 Dietary Evaluation Review Recommendations by RD: Protein Supplementation Comments: 1) Add renal restriction to cardiac diet 2) Initiate Nepro qd 3) Encourage optimal PO intake 4) Follow-up with cardiology, pulmonology, and nephrology 5) Continue to monitor I&O, labs, and skin integrity Expected Outcomes/Goals: 1) appetite and labs to improve 2) wound to improve 3) f/u in 3-5 days CHANDNI BREWSTER RESIDENT Apr 19, 2025 11:12
[2025-04-19] MEDS: VANCOMYCIN 1GM/250ML KIT 250 ML IV ONE (11:27)
--- NOTE | 2025-04-19 13:14 | DVHINCON2 ---
Date of service: Apr 19, 2025 Family History: Alcoholism G8 MOTHER Cancer G8 MOTHER (BREAST) G8 FATHER (PROSTATE) G8 SISTER (BREAST) G8 BROTHER G8 BROTHER G8 BROTHER FH: breast cancer G8 MOTHER, Onset:Unknown FH: prostate cancer Family history: Cardiovascular disease G8 FATHER Allergies: Coded Allergies: Baclofen (Verified Allergy, Unknown, 11/07/23) Home Meds Active Scripts Ampicillin (Ampicillin) 500 Mg Cap, 1 CAP PO TID for 10 Days, #30 CAP Prov:HATTIE ROLLINS ELEVATOR EXAMINER 03/16/24 Sulfamethoxazole W/Trimethopri (Bactrim Ds Tablet) 1 Tab Tb, 1 TAB PO BID for 10 Days, #20 TAB Prov:HATTIE ROLLINS NP 03/16/24 Albuterol Sulfate (Albuterol Sulfate) 0.083 % Neb, 1 VIAL NEB Q4HPRN, #50 VIAL 2 Refills Prov:LUANNE GILL MD 11/10/23 Isosorbide Mononitrate (Isosorbide Mononitrate Er) 30 Mg Tab, 1 TAB PO DAILY, #30 TAB Prov:AZAR ALBA MD 09/01/21 Nifedipine (Nifedipine Er) 90 Mg Tab, 1 TAB PO DAILY, #30 TAB Prov:AZAR ALBA MD 09/01/21 Ascorbic Acid (VITAMIN C TABLET) 500 Mg Tb, 500 MG PO BID for 30 Days Prov:DASHAWN PELAEZ MD 09/12/18 Reported Medications Phenylephrine HCl (Topical) (Preparation H) 0.25 % Sup, 0.25 % DC BID for hemorrhoidal pain, SUPP 04/10/25 Fluconazole (Fluconazole) 150 Mg Tab, 1 TAB PO DAILY for 7 Days, #7 MG 11/09/23 Triamcinolone Acetonide (Kenalog) 1 Applic Ap, 1 APPLIC TOP BID 11/09/23 Ondansetron Odt 4MG Tab (ZOFRAN PO) 4 Mg Tb, 1 TAB PO DAILY 11/09/23 Tenapanor HCl (Xphozah) 30 Mg Tab, 1 TAB PO BID 11/09/23 B-Complex W/ C & Folic Acid (Marisela-Tita Rx) Tab, 1 TAB PO DAILY 11/09/23 Lisinopril (Lisinopril) 20 Mg Tab, 1 TAB PO DAILY 11/09/23 Quetiapine Fumerate (Seroquel) 100 Mg Tab, 1 TAB PO DAILY 11/09/23 Hydralazine HCl (Hydralazine HCl) 25 Mg Tab, 1 TAB PO TID 11/07/23 Carvedilol (Carvedilol) 12.5 Mg Tab, 1 TAB PO BID 11/07/23 Oxycodone W/ Acetaminophen (Apap/Oxycodone) 1 Tab Tab, 10-325 MG PO QIDPRN PRN for back pain 08/31/21 Carisoprodol (Soma) 350 Mg Tab, 350 MG PO QID 03/07/19 Clopidogrel Bisulfate (CLOPIDOGREL) 75 Mg Tab, 75 MG PO DAILY 03/07/19 Levothyroxine Sodium (Levothyroxine Sodium) 200 Mcg Tab, 200 MCG PO QAM Dose verified against [facility] record 08/18/18 Docusate Sodium (DOCQLACE) 100 Mg Cap, 100 MG PO TID 08/05/18 Temazepam (Temazepam) 30 Mg Cap, 15 MG PO HS PRN for FOR INSOMNIA 04/17/18 Alprazolam (Xanax) 0.5 Mg Tb, 0.5 TAB PO BID 07/14/17 Cinacalcet Hydrochloride (Sensipar) 60 Mg Tab, 60 MG PO TID Per patient, she takes cinacalcet 60 mg tab, TID before meals. 01/08/16 Sevelamer Carbonate (Renvela) 800 Mg Tab, 2 TAB PO TID 01/08/16 Pantoprazole Sodium Sesquihydr (Protonix) 40 Mg Tab, 40 MG PO DAILY 01/08/16 Doxepin Hcl (Doxepin Hcl) 50 Mg Cap, 3 CAP PO QPM per patient 12/20/12 Atorvastatin Calcium (Lipitor) 10 Mg Tab, 1 TAB PO DAILY 12/20/12 Current Medications Current Medications Medications (Trade) Dose Ordered Sig/Margarito Route PRN Reason Start Time Stop Time Status Last Admin Hydromorphone HCl (Dilaudid Injection) 0.5 mg Q3HP PRN IV SEVERE PAIN (7-10 PAIN SCALE) 04/18/25 15:45 04/18/25 23:22 Vancomycin HCl 0 ml @ 0 mls/hr UD IV 04/19/25 10:00 Vital Signs Vital Signs Date Time Temp Pulse Resp B/P (MAP) Pulse Ox O2 Delivery O2 Flow Rate FiO2 04/19/25 09:00 100.0 87 19 94/55 (68) 93 100.0 04/19/25 07:59 Nasal Cannula* 2 28 Labs/Diagnostic Data Labs Test 04/19/25 04:56 04/18/25 06:34 04/17/25 06:48 04/15/25 11:55 Range/Units White Blood Count 4.4 4.4-10.8 10^3/uL Red Blood Count 2.53 L 4.0-5.20 10^6/uL Hemoglobin 8.2 L 12.2-16.2 g/dL Hematocrit 25.4 L 36.0-46.0 % Mean Corpuscular Volume 100.4 H 80.0-100.0 fL Mean Corpuscular Hemoglobin 32.3 H 28.0-32.0 pg Mean Corpuscular Hemoglobin Concent 32.2 32.0-36.0 g/dL Red Cell Distribution Width 18.2 H 11.8-14.3 % Platelet Count 111 L 140-450 10^3/uL Mean Platelet Volume 10.3 6.9-10.8 fL Neutrophils (%) (Auto) 37.0-80.0 % Lymphocytes (%) (Auto) 10.0-50.0 % Monocytes (%) (Auto) 0.0-12.0 % Basophils (%) (Auto) 0.0-2.0 % Neutrophils # (Auto) 1.6-8.6 10 ^3/uL Lymphocytes # (Auto) 0.4-5.4 10 ^3/uL Monocytes # (Auto) 0-1.3 10 ^3/uL Differential Total Cells Counted 100.0 100 Neutrophils % (Manual) 65 37.0-80.0 Band Neutrophils % (Manual) 1 Lymphocytes % (Manual) 21 10.0-50.0 Monocytes % (Manual) 12 0-12 Eosinophils % (Manual) 1 0-7 Basophils % (Manual) 0 0.0-2.0 Metamyelocytes % (manual) 0 Myelocytes % (Manual) 0 Promyelocytes % (Manual) 0 Blast Cells % (Manual) 0 Reactive Lymphocytes 0 Platelet Estimate Decreased Sodium Level 141 136-145 mmol/L Potassium Level 3.8 3.5-5.1 mmol/L Chloride Level 100 98-107 mmol/L Carbon Dioxide Level 28 20-31 mmol/L Anion Gap 13 5-15 Blood Urea Nitrogen 8 L 9-23 mg/dL Creatinine 1.94 H 0.550-1.02 mg/dL Glomerular Filtration Rate Calc 27 >90 mL/min BUN/Creatinine Ratio 4.1 L 10.0-20.0 Serum Glucose 86 74-106 mg/dL Calcium Level 9.3 8.7-10.4 mg/dL Large Platelets Few Anisocytosis (manual) Slight Eosinophils (%) (Auto) 2.2 0.0-7.0 % Eosinophils # (Auto) 0.1 0-0.8 10 ^3/uL Basophils # (Auto) 0 0-0.2 10 ^3/uL Nucleated Red Blood Cells 0.0 % Parathyroid Hormone (Intact) 4192.3 H 18.4-80.1 pg/mL Test 04/13/25 04:40 04/12/25 10:44 04/12/25 05:31 04/09/25 05:01 Range/Units Smudge Cells 3 /100 WBC Ovalocytes Few POC Glucose 88 70-106 mg/dl Iron Level 70 50-170 ug/dL Total Iron Binding Capacity 149 L 250-425 ug/dL Percent Iron Saturation 47.0 15-50 % Ferritin 575.8 H 10-291 ng/mL Giant Platelets Few Uric Acid 4.1 3.1-7.8 mg/dL Phosphorus Level 4.8 2.4-5.1 mg/dL Magnesium Level 2.3 1.6-2.6 mg/dL Vitamin D 25-Hydroxy 20.7 L 30.0-100 ng/mL Rheumatoid Factor <10.0 <14.0 IU/mL Test 04/07/25 01:40 04/06/25 18:12 04/06/25 11:58 04/06/25 03:00 Range/Units Troponin I High Sensitivity 73 *H </=34 ng/L Vitamin B12 Level 390 211-911 pg/mL Folic Acid 5.70 >5.38 ng/mL Erythrocyte Sedimentation Rate 50 H 0-20 mm/hr C-Reactive Protein High Sensitivity 9.70 H <1.0 mg/dL Triglycerides Level 162 H < 150 mg/dL Cholesterol Level 150 < 200 mg/dL LDL Cholesterol 41 < 100 mg/dL HDL Cholesterol 58 40-59 mg/dL Test 04/05/25 11:30 Range/Units Prothrombin Time 11.4 9.3-11.8 sec Prothrombin Time INR 1.08 0.9-1.15 Activated Partial Thromboplast Time 33.6 24.5-34.5 SEC Hemoglobin A1c 4.5 <5.7 % A1C Lactic Acid Level 1.0 0.4-2.0 mmol/L Total Bilirubin < 0.2 L 0.2-1.0 mg/dL Aspartate Amino Transferase (AST) 12 L 13-40 U/L Alanine Aminotransferase (ALT) < 9 7-40 U/L Alkaline Phosphatase 387 H 46-116 U/L Total Protein 6.9 5.7-8.2 g/dL Albumin 3.4 3.2-4.8 g/dL Thyroid Stimulating Hormone (TSH) 8.06 H 0.55-4.78 uIU/mL Free Thyroxine (T4) Calculated 0.49 L 0.89-1.76 ng/dL Hepatitis B Surface Antigen Negative Negative Microbiology Date/Time Source Procedure Growth Status 04/05/25 23:15 Nose MRSA Screen - Final Methicillin Resistant S.aureus Complete 04/05/25 11:30 Blood Blood Culture - Final NO GROWTH AFTER 5 DAYS OF INCUBATION. 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 HAS ELEVATED PARATHYROID HORMOBE LEVELS AND CT/SCAN EVIDENCE OF PROBABLE PARATHYROID ADENOMAS IN BOTH LOWER GLANDS, PARATHYROIDECTOMY ( PARTIAL 0,EXPLAQINED WERE RISKS AND COMPLICATIONS, SHE IS AT INCREASED RISK OF COMPLICATIONS DUE TO CHRONIC IMMOBILITY AND KIDNEY DISEASE. Plan discussed with: Patient, Other HANNAH CARLOS MD Apr 19, 2025 13:14
--- NOTE | 2025-04-19 14:47 | DVHINCON2 ---
Consultation - Surgical Date Seen: Apr 19, 2025 Referring Physician Reason for Consultation Hyperparathyroidism History of Present Illness History of Present Illness Mrs. Arreguin is a 70-year-old female who presented to the hospital due to chest pain. I was consulted due to high PTH level, and nuclear medicine scan possibly showing parathyroid adenoma. Patient denies any history of kidney stones, renal dialysis since 2014 and is anuric. Patient denies any bone pain or bone crises. In the past she had been told that her thyroid was not enlarged and needed in the come out. Denies with weight loss, loss of appetite, fevers, chills, changes in stooling habits. Denies pruritus and does not have a history of calciphylaxis. Past Medical/Surgical History Past Medical/Surgical History paraplegia, CAD, hypertension, COPD, CHF, bed-bound due to back surgery in 2018, [place], bipolar disorder, ESRD on HD (M/W/F) with Dr. Thornton, ventral umbilical hernia, tonsillectomy, hemorrhoids Allergies and medications Allergies: Coded Allergies: Baclofen (Verified Allergy, Unknown, 11/07/23) Home Meds Active Scripts Ampicillin (Ampicillin) 500 Mg Cap, 1 CAP PO TID for 10 Days, #30 CAP Prov:HATTIE ROLLINS [employer] 03/16/24 Sulfamethoxazole W/Trimethopri (Bactrim Ds Tablet) 1 Tab Tb, 1 TAB PO BID for 10 Days, #20 TAB Prov:HATTIE ROLLINS [employer] 03/16/24 Albuterol Sulfate (Albuterol Sulfate) 0.083 % Neb, 1 VIAL NEB Q4HPRN, #50 VIAL 2 Refills Prov:LUANNE GILL MD 11/10/23 Isosorbide Mononitrate (Isosorbide Mononitrate Er) 30 Mg Tab, 1 TAB PO DAILY, #30 TAB Prov:AZAR ALBA MD 09/01/21 Nifedipine (Nifedipine Er) 90 Mg Tab, 1 TAB PO DAILY, #30 TAB Prov:AZAR ALBA MD 09/01/21 Ascorbic Acid (VITAMIN C TABLET) 500 Mg Tb, 500 MG PO BID for 30 Days Prov:DASHAWN PELAEZ MD 09/12/18 Reported Medications Phenylephrine HCl (Topical) (Preparation H) 0.25 % Sup, 0.25 % MO BID for hemorrhoidal pain, SUPP 04/10/25 Fluconazole (Fluconazole) 150 Mg Tab, 1 TAB PO DAILY for 7 Days, #7 MG 11/09/23 Triamcinolone Acetonide (Kenalog) 1 Applic Ap, 1 APPLIC TOP BID 11/09/23 Ondansetron Odt 4MG Tab (ZOFRAN PO) 4 Mg Tb, 1 TAB PO DAILY 11/09/23 Tenapanor HCl (Xphozah) 30 Mg Tab, 1 TAB PO BID 11/09/23 B-Complex W/ C & Folic Acid (Marisela-Tita Rx) Tab, 1 TAB PO DAILY 11/09/23 Lisinopril (Lisinopril) 20 Mg Tab, 1 TAB PO DAILY 11/09/23 Quetiapine Fumerate (Seroquel) 100 Mg Tab, 1 TAB PO DAILY 11/09/23 Hydralazine HCl (Hydralazine HCl) 25 Mg Tab, 1 TAB PO TID 11/07/23 Carvedilol (Carvedilol) 12.5 Mg Tab, 1 TAB PO BID 11/07/23 Oxycodone W/ Acetaminophen (Apap/Oxycodone) 1 Tab Tab, 10-325 MG PO QIDPRN PRN for back pain 08/31/21 Carisoprodol (Soma) 350 Mg Tab, 350 MG PO QID 03/07/19 Clopidogrel Bisulfate (CLOPIDOGREL) 75 Mg Tab, 75 MG PO DAILY 03/07/19 Levothyroxine Sodium (Levothyroxine Sodium) 200 Mcg Tab, 200 MCG PO QAM Dose verified against [facility] record 08/18/18 Docusate Sodium (DOCQLACE) 100 Mg Cap, 100 MG PO TID 08/05/18 Temazepam (Temazepam) 30 Mg Cap, 15 MG PO HS PRN for FOR INSOMNIA 04/17/18 Alprazolam (Xanax) 0.5 Mg Tb, 0.5 TAB PO BID 07/14/17 Cinacalcet Hydrochloride (Sensipar) 60 Mg Tab, 60 MG PO TID Per patient, she takes cinacalcet 60 mg tab, TID before meals. 01/08/16 Sevelamer Carbonate (Renvela) 800 Mg Tab, 2 TAB PO TID 01/08/16 Pantoprazole Sodium Sesquihydr (Protonix) 40 Mg Tab, 40 MG PO DAILY 01/08/16 Doxepin Hcl (Doxepin Hcl) 50 Mg Cap, 3 CAP PO QPM per patient 12/20/12 Atorvastatin Calcium (Lipitor) 10 Mg Tab, 1 TAB PO DAILY 12/20/12 Review of systems Review of Systems: Deferred Examination Vital signs Vital Signs Date Time Temp Pulse Resp B/P (MAP) Pulse Ox O2 Delivery O2 Flow Rate FiO2 04/19/25 09:00 100.0 87 19 94/55 (68) 93 100.0 04/19/25 07:59 Nasal Cannula* 2 28 Medications Current Medications Medications (Trade) Dose Ordered Sig/Margarito Route PRN Reason Start Time Stop Time Status Last Admin Hydromorphone HCl (Dilaudid Injection) 0.5 mg Q3HP PRN IV SEVERE PAIN (7-10 PAIN SCALE) 04/18/25 15:45 04/18/25 23:22 Vancomycin HCl 0 ml @ 0 mls/hr UD IV 04/19/25 10:00 Laboratory Labs Test 04/19/25 04:56 04/18/25 06:34 04/17/25 06:48 04/15/25 11:55 Range/Units White Blood Count 4.4 4.4-10.8 10^3/uL Red Blood Count 2.53 L 4.0-5.20 10^6/uL Hemoglobin 8.2 L 12.2-16.2 g/dL Hematocrit 25.4 L 36.0-46.0 % Mean Corpuscular Volume 100.4 H 80.0-100.0 fL Mean Corpuscular Hemoglobin 32.3 H 28.0-32.0 pg Mean Corpuscular Hemoglobin Concent 32.2 32.0-36.0 g/dL Red Cell Distribution Width 18.2 H 11.8-14.3 % Platelet Count 111 L 140-450 10^3/uL Mean Platelet Volume 10.3 6.9-10.8 fL Neutrophils (%) (Auto) 37.0-80.0 % Lymphocytes (%) (Auto) 10.0-50.0 % Monocytes (%) (Auto) 0.0-12.0 % Basophils (%) (Auto) 0.0-2.0 % Neutrophils # (Auto) 1.6-8.6 10 ^3/uL Lymphocytes # (Auto) 0.4-5.4 10 ^3/uL Monocytes # (Auto) 0-1.3 10 ^3/uL Differential Total Cells Counted 100.0 100 Neutrophils % (Manual) 65 37.0-80.0 Band Neutrophils % (Manual) 1 Lymphocytes % (Manual) 21 10.0-50.0 Monocytes % (Manual) 12 0-12 Eosinophils % (Manual) 1 0-7 Basophils % (Manual) 0 0.0-2.0 Metamyelocytes % (manual) 0 Myelocytes % (Manual) 0 Promyelocytes % (Manual) 0 Blast Cells % (Manual) 0 Reactive Lymphocytes 0 Platelet Estimate Decreased Sodium Level 141 136-145 mmol/L Potassium Level 3.8 3.5-5.1 mmol/L Chloride Level 100 98-107 mmol/L Carbon Dioxide Level 28 20-31 mmol/L Anion Gap 13 5-15 Blood Urea Nitrogen 8 L 9-23 mg/dL Creatinine 1.94 H 0.550-1.02 mg/dL Glomerular Filtration Rate Calc 27 >90 mL/min BUN/Creatinine Ratio 4.1 L 10.0-20.0 Serum Glucose 86 74-106 mg/dL Calcium Level 9.3 8.7-10.4 mg/dL Large Platelets Few Anisocytosis (manual) Slight Eosinophils (%) (Auto) 2.2 0.0-7.0 % Eosinophils # (Auto) 0.1 0-0.8 10 ^3/uL Basophils # (Auto) 0 0-0.2 10 ^3/uL Nucleated Red Blood Cells 0.0 % Parathyroid Hormone (Intact) 4192.3 H 18.4-80.1 pg/mL Test 04/13/25 04:40 04/12/25 10:44 04/12/25 05:31 04/09/25 05:01 Range/Units Smudge Cells 3 /100 WBC Ovalocytes Few POC Glucose 88 70-106 mg/dl Iron Level 70 50-170 ug/dL Total Iron Binding Capacity 149 L 250-425 ug/dL Percent Iron Saturation 47.0 15-50 % Ferritin 575.8 H 10-291 ng/mL Giant Platelets Few Uric Acid 4.1 3.1-7.8 mg/dL Phosphorus Level 4.8 2.4-5.1 mg/dL Magnesium Level 2.3 1.6-2.6 mg/dL Vitamin D 25-Hydroxy 20.7 L 30.0-100 ng/mL Rheumatoid Factor <10.0 <14.0 IU/mL Test 04/07/25 01:40 04/06/25 18:12 04/06/25 11:58 04/06/25 03:00 Range/Units Troponin I High Sensitivity 73 *H </=34 ng/L Vitamin B12 Level 390 211-911 pg/mL Folic Acid 5.70 >5.38 ng/mL Erythrocyte Sedimentation Rate 50 H 0-20 mm/hr C-Reactive Protein High Sensitivity 9.70 H <1.0 mg/dL Triglycerides Level 162 H < 150 mg/dL Cholesterol Level 150 < 200 mg/dL LDL Cholesterol 41 < 100 mg/dL HDL Cholesterol 58 40-59 mg/dL Test 04/05/25 11:30 Range/Units Prothrombin Time 11.4 9.3-11.8 sec Prothrombin Time INR 1.08 0.9-1.15 Activated Partial Thromboplast Time 33.6 24.5-34.5 SEC Hemoglobin A1c 4.5 <5.7 % A1C Lactic Acid Level 1.0 0.4-2.0 mmol/L Total Bilirubin < 0.2 L 0.2-1.0 mg/dL Aspartate Amino Transferase (AST) 12 L 13-40 U/L Alanine Aminotransferase (ALT) < 9 7-40 U/L Alkaline Phosphatase 387 H 46-116 U/L Total Protein 6.9 5.7-8.2 g/dL Albumin 3.4 3.2-4.8 g/dL Thyroid Stimulating Hormone (TSH) 8.06 H 0.55-4.78 uIU/mL Free Thyroxine (T4) Calculated 0.49 L 0.89-1.76 ng/dL Hepatitis B Surface Antigen Negative Negative Microbiology Date/Time Source Procedure Growth Status 04/05/25 23:15 Nose MRSA Screen - Final Methicillin Resistant S.aureus Complete 04/05/25 11:30 Blood Blood Culture - Final NO GROWTH AFTER 5 DAYS OF INCUBATION. Complete Examination: GENERAL:Normal (Bed-bound), NECK:Normal (Trachea midline no JVD, no anterior cervical or posterior cervical adenopathy, thyroid soft nonenlarged, anterior thyroid nodule rubbery and mobile at the midline proximally 1 cm in diameter, no overlying skin changes), ABDOMEN:Normal (Nondistended, soft, depressible, nontender) Problem List/Assessment/Plan Problems: (1) Hyperparathyroidism due to ESRD on dialysis (2) Thyroid nodule Assessment and Plan Mrs. Arreguin is a 70-year-old female who presented to the emergency department and was admitted to the hospital due to chest pain. Who was consulted today due to elevated PTH levels today, to over 4000. She is a end stage renal disease patient on dialysis Tuesday and Tuesday since 2014, patient is anuric. I reviewed this neck CT and it shows a midline nodule likely coming from the isthmus of the thyroid gland. On physical exam I also noted this finding, it was rubbery mobile. I also reviewed the sestamibi scan which shows uptake at the inferior pole of bilateral thyroid lobes. In her case is likely due to parathyroid hyperplasia, not parathyroid adenoma. I also reviewed the neck ultrasound which shows a normal-appearing thyroid, they did not describe the isthmus nodule. DEXA scan which shows some lesions in the calvarium. I believe that this patient has elevated PTH levels are a consequence of secondary hyperparathyroidism due to her end-stage renal disease and on dialysis which could have converted to tertiary hyperparathyroidism. At this point she does not require any emergency/urgent surgeries. I recommend managing PTH level medically and if PTH levels not resolve maybe we can consider elective surgery. Potential surgery indications: 1. PTH consistently greater than 1000 pg/mL or more than 9 times the upper limit of normal despite medical management 2. Refractory myalgia or arthralgia or muscle weakness 3. Refractory pruritus 4. Pathologic fractures 5. Calciphylaxis and other severe extra skeletal calcifications 6. Refractory hypercalcemia or hyperphosphatemia Recommend: 1. Starting the patient on calcitriol 2. Addition of calcimimetic medications if calcitriol fails to lower PTH level 3. Phosphate binder 4. Consultation to Interventional Radiology for FNA of midline thyroid nodule 5. If medical management fails to reduce the PTH levels please refer the patient to surgery Clinic for the possibility of parathyroidectomy 6. Depending on FNA results of thyroid nodule please refer the patient's surgery Clinic I will sign off please call with any questions or concerns. Plan discussed with Plan discussed with: Patient Visit Coding Surgery Date of Service if different f: Apr 19, 2025 Billing Provider: FATUMA LYNN MD Surgery Visit Codes: 64170 - INP CONSULT <110 MIN FATUMA LYNN MD Apr 19, 2025 14:47
--- NOTE | 2025-04-19 15:01 | DVHPN2 ---
Progress Note Date Seen: Apr 19, 2025 Medical Necessity Reason Pt with a Central, PICC or Fol: Yes Objective vital signs Vital Sign Date Time Temp Pulse Resp B/P (MAP) Pulse Ox O2 Delivery O2 Flow Rate FiO2 04/19/25 13:00 99.1 79 19 93/52 (66) 93 99.1 04/19/25 08:00 Nasal Cannula* 2 28 Total Intake and Output 04/18/25 04/18/25 04/19/25 15:00 23:00 07:00 Intake Total 400 ml 240 ml Balance 400 ml 240 ml medications Current Medications Medications Dose Ordered Sig/Margarito Route Start Time Stop Time Status Last Admin Dose Admin Aspirin 81 mg DAILY PO 04/05/25 17:40 04/19/25 10:52 81 MG Atorvastatin Calcium 40 mg HS PO 04/05/25 22:00 04/18/25 23:20 40 MG Acetaminophen 650 mg Q6HP PRN PO 04/05/25 17:30 Nitroglycerin 0.4 mg Q5MINP PRN SL 04/05/25 17:30 Ondansetron HCl 4 mg Q4HP PRN IV 04/05/25 17:30 04/18/25 19:09 4 MG Multivit/Ca Carb/ B Cmplx/FA/Prenat 1 tab DAILY PO 04/06/25 10:00 04/19/25 10:52 1 TAB Quetiapine Fumarate 100 mg DAILY PO 04/06/25 10:00 04/19/25 10:51 100 MG Patient Own Medication 3 cap HS PO 04/05/25 22:00 Levothyroxine Sodium 200 mcg QAM@0600 PO 04/06/25 06:00 04/19/25 05:59 200 MCG Sevelamer HCl 1,600 mg TIDWM PO 04/06/25 08:00 04/19/25 12:35 1,600 MG Pantoprazole Sodium 40 mg DAILY@0600 PO 04/07/25 06:00 04/19/25 05:58 40 MG Albuterol 2.5 mg Q6HPRN PRN NEB 04/06/25 10:30 04/18/25 00:26 2.5 MG Carisoprodol 350 mg TID PO 04/06/25 12:00 04/19/25 14:43 350 MG Docusate Sodium 100 mg BID PRN PO 04/09/25 16:45 04/19/25 11:09 100 MG Ergocalciferol 50,000 unit Q7D PO 04/09/25 18:30 04/16/25 18:35 50,000 UNIT Patient Own Medication 1 BID OH 04/10/25 22:00 04/17/25 22:05 1 Lactulose 30 ml BID PO 04/10/25 22:00 04/18/25 10:43 30 ML Epoetin Checo-epbx 4,000 unit MWF@2100 SC 04/12/25 21:00 Hold 04/15/25 21:39 4,000 UNIT Morphine Sulfate 15 mg Q8HR PO 04/15/25 22:00 04/19/25 14:43 15 MG Polyethylene Glycol 17 gm DAILY PO 04/16/25 10:00 04/18/25 10:42 17 GM Calcitriol 1 mcg DAILY PO 04/16/25 11:30 04/19/25 10:52 1 MCG Lidocaine 1 patch DAILY TOP 04/17/25 10:00 Hold 04/17/25 09:34 1 PATCH Ciprofloxacin HCl 1 drop Q4HR EACHEYE 04/16/25 14:00 04/21/25 14:00 04/19/25 14:42 1 DROP Bisacodyl 10 mg DAILYP PRN OH 04/17/25 09:45 04/19/25 11:09 10 MG Hydromorphone HCl 0.5 mg Q3HP PRN IV 04/18/25 15:45 04/18/25 23:22 0.5 MG Vancomycin HCl 0 ml @ 0 mls/hr UD IV 04/19/25 10:00 laboratory and microbiology Laboratory Tests 04/19/25 04:56 Test 04/19/25 04:56 Range/Units Serum Glucose 86 74-106 mg/dL Microbiology Date/Time Source Procedure Growth Status 04/05/25 23:15 Nose MRSA Screen - Final Methicillin Resistant S.aureus Complete 04/05/25 11:30 Blood Blood Culture - Final NO GROWTH AFTER 5 DAYS OF INCUBATION. Complete Problem List/Assessment/Plan Problem List/Assessment/Plan AFEBRILE VSS PARATHYROID SCAN POSSIBLE B/L ADENOMA BUT NOT CONFIRMING CONSIDER TRANSFER TO HIGHER LEVEL OF CARE Plan discussed with: Other Dietary Evaluation Review Recommendations by RD: Protein Supplementation Comments: 1) Add renal restriction to cardiac diet 2) Initiate Nepro qd 3) Encourage optimal PO intake 4) Follow-up with cardiology, pulmonology, and nephrology 5) Continue to monitor I&O, labs, and skin integrity Expected Outcomes/Goals: 1) appetite and labs to improve 2) wound to improve 3) f/u in 3-5 days GABRIELLE HOGAN MD Apr 19, 2025 15:01
--- NOTE | 2025-04-19 20:38 | DVHPN2 ---
Progress Note - Dictate Date Seen: Apr 19, 2025 Medical Necessity Reason Pt with a Central, PICC or Fol: Yes Subjective Patient was seen and evaluated in follow up. Patient is on 2 LPM NC. Patient is having low grade fevers. 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 Patient is cardiac cleared for surgery. Telemetry reviewed. vital signs Vital Sign Date Time Temp Pulse Resp B/P (MAP) Pulse Ox O2 Delivery O2 Flow Rate FiO2 04/19/25 09:00 100.0 87 19 94/55 (68) 93 100.0 04/19/25 07:59 Nasal Cannula* 2 28 Total Intake and Output 04/18/25 04/18/25 04/19/25 15:00 23:00 07:00 Intake Total 400 ml 240 ml Balance 400 ml 240 ml medications Current Medications Medications Dose Ordered Sig/Margarito Route Start Time Stop Time Status Last Admin Dose Admin Aspirin 81 mg DAILY PO 04/05/25 17:40 04/19/25 10:52 81 MG Atorvastatin Calcium 40 mg HS PO 04/05/25 22:00 04/18/25 23:20 40 MG Acetaminophen 650 mg Q6HP PRN PO 04/05/25 17:30 Nitroglycerin 0.4 mg Q5MINP PRN SL 04/05/25 17:30 Ondansetron HCl 4 mg Q4HP PRN IV 04/05/25 17:30 04/18/25 19:09 4 MG Multivit/Ca Carb/ B Cmplx/FA/Prenat 1 tab DAILY PO 04/06/25 10:00 04/19/25 10:52 1 TAB Clopidogrel Bisulfate 75 mg DAILY PO 04/06/25 10:00 04/19/25 10:51 75 MG Quetiapine Fumarate 100 mg DAILY PO 04/06/25 10:00 04/19/25 10:51 100 MG Patient Own Medication 3 cap HS PO 04/05/25 22:00 Levothyroxine Sodium 200 mcg QAM@0600 PO 04/06/25 06:00 04/19/25 05:59 200 MCG Sevelamer HCl 1,600 mg TIDWM PO 04/06/25 08:00 04/19/25 08:31 1,600 MG Pantoprazole Sodium 40 mg DAILY@0600 PO 04/07/25 06:00 04/19/25 05:58 40 MG Albuterol 2.5 mg Q6HPRN PRN NEB 04/06/25 10:30 04/18/25 00:26 2.5 MG Carisoprodol 350 mg TID PO 04/06/25 12:00 04/19/25 05:58 350 MG Docusate Sodium 100 mg BID PRN PO 04/09/25 16:45 04/19/25 11:09 100 MG Ergocalciferol 50,000 unit Q7D PO 04/09/25 18:30 04/16/25 18:35 50,000 UNIT Patient Own Medication 1 BID MD 04/10/25 22:00 04/17/25 22:05 1 Lactulose 30 ml BID PO 04/10/25 22:00 04/18/25 10:43 30 ML Epoetin Checo-epbx 4,000 unit MWF@2100 SC 04/12/25 21:00 Hold 04/15/25 21:39 4,000 UNIT Morphine Sulfate 15 mg Q8HR PO 04/15/25 22:00 04/18/25 23:20 15 MG Polyethylene Glycol 17 gm DAILY PO 04/16/25 10:00 04/18/25 10:42 17 GM Calcitriol 1 mcg DAILY PO 04/16/25 11:30 04/19/25 10:52 1 MCG Lidocaine 1 patch DAILY TOP 04/17/25 10:00 Hold 04/17/25 09:34 1 PATCH Ciprofloxacin HCl 1 drop Q4HR EACHEYE 04/16/25 14:00 04/21/25 14:00 04/19/25 11:52 1 DROP Bisacodyl 10 mg DAILYP PRN MD 04/17/25 09:45 04/19/25 11:09 10 MG Hydromorphone HCl 0.5 mg Q3HP PRN IV 04/18/25 15:45 04/18/25 23:22 0.5 MG Vancomycin HCl 0 ml @ 0 mls/hr UD IV 04/19/25 10:00 objective GENERAL: Alert and oriented x 3. No acute distress. Paraplegic. EYES: PERRL, EOMI. Anicteric. HENT: Moist mucous membranes. LUNGS: Clear to auscultation bilaterally. CARDIOVASCULAR: Regular rate and rhythm. ABDOMEN: Soft, nontender and nondistended. EXTREMITIES: No edema. NEUROLOGIC: No focal neurological deficits. SKIN: Wounds (Decubitus). laboratory and microbiology Laboratory Tests 04/19/25 04:56 Test 04/19/25 04:56 Range/Units Serum Glucose 86 74-106 mg/dL Problem List NSTEMI likely type 2. Anemia likely due to chronic renal failure. Cardiomegaly. Probable pneumonia. Elevated ALP. Hyponatremia. Hyperkalemia. Thrombocytopenia. Acute on chronic renal failure on dialysis (M/W/F). Acute hypoxic respiratory failure on supportive oxygen. 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 History of chronic fracture of the right inferior pubic ramus. History of paraplegia. History of CAD, patient denies and claims she does not have any stents in her heart. History of hypertension. History of COPD. History of CHF. History of bed-bound due to back surgery in 2018 for cyst removal. History of HI. History of bipolar disease. History of ventral umbilical hernia. History of tonsillectomy. History of hemorrhoids. History of I&D for decubitus ulcer. History of tobacco use. Assessment/Plan Continued all current supportive medical care. Patient is cardiac cleared for surgery. Aspirin, Plavix. GI prophylactics. Tylenol for pain management. Additional plan as per the hospital course. Dietary Evaluation Review Recommendations by RD: Protein Supplementation Comments: 1) Add renal restriction to cardiac diet 2) Initiate Nepro qd 3) Encourage optimal PO intake 4) Follow-up with cardiology, pulmonology, and nephrology 5) Continue to monitor I&O, labs, and skin integrity Expected Outcomes/Goals: 1) appetite and labs to improve 2) wound to improve 3) f/u in 3-5 days Plan discussed with: Patient WENDY COREAS MD Apr 19, 2025 12:23
[2025-04-19] MEDS: SODIUM CHLORIDE 0.9% 250 ML IV ONE (23:59)
[2025-04-20] VITALS (12 sets, daily range): BP systolic 80–143; BP diastolic 36–77; PULSE 75–103; RESP 12–19; TEMP 97.5–99.3; O2SAT 90–100
[2025-04-20 05:10] LABS: Hemoglobin 7.6 g/dL (12.2-16.2)
[2025-04-20 05:12] LABS: Hematocrit 24.2 % (36.0-46.0); Mean Corpuscular Hemoglobin 31.9 pg (28.0-32.0); Mean Corpuscular Volume 101.4 fL (80.0-100.0); Nucleated Red Blood Cells % 0.0 %
--- NOTE | 2025-04-20 07:33 | DVHPNRES ---
Progress Note Date Seen: Apr 20, 2025 Resident Creating Document: CHANDNI BREWSTER RESIDENT Medical Necessity Reason Pt with a Central, PICC or Fol: Yes Subjective Review of Systems This is a 70-year-old female with past medical history of paraplegia since 2018 after surgery spine, CAD with no stent recent angiogram 3 months ago in [facility] reported normal, HTN, COPD on 2 L home oxygen, CHF with preserved ejection fraction, bed-bound since surgery 2017, bipolar disorder ESRD on hemodialysis Tuesday umbilical hernia, tonsillectomy, hemorrhoids, I and D on her decubitus ulcer sacral region present to ER with complaint of chest pain for 2 weeks which is getting worse before arriving to the hospital. Esterase pain was 9/10 intensity, sharp, intermitted, no aggravating or relieving factor. History of broken right hip 1 year ago and surgery done in [facility] but no prosthesis. Admission patient become hemodynamically unstable and started pressor. Off pressor on 04/07/2025. Past medical history: CAD, CHF, HTN, ND, COPD on 2 L home oxygen, bipolar disorder, ESRD, ventral umbilical hernia, hemorrhoid Past Surgical history: Tonsillectomy Family history cancer-mother with pacemaker and breast cancer, father with colon cancer Social history: X 0 smoker, quit 1 year ago, no ETOH use. Denies any illicit drug Family history lives with family, having caregivers 04/08/2025: Patient seen and evaluated in bedside. Patient complained left upper extremity pain associated with chest pain. No pain on rest but aggravated on movement. Labs for rheumatoid factor, uric acid level we will follow. Physical therapy during discharge. 04/09/2025: Patient seen and evaluated in bedside today. Patient left hand swelling is improving but chest pain on deep palpation. Colace and lactulose ordered for constipation, monitor for bowel movement. Patient currently on oxygen via nasal cannula. 04/10: Patient seen and evaluated in bedside today. Patient chest pain on palpation sternal area. Ordered for bone scan due to CT showed lytic bone lesion. Patient will be benefitted per physical therapy. 04/11: Patient seen and evaluated in bedside. Patient pain better in compared to yesterday switching morphine ER. Bone scan to rule out lytic lesion on CT chest ordered. Follow-up for bowel movement. Denies any fever, abdominal pain, headache. 04/12: Patient seen and evaluated in bedside today. Hemodialysis scheduled today. Patient chest pain is improving. Bone scan done yesterday and IR consulted biopsy right axillary lymph node. 04/15: Patient seen and evaluated in bedside today. Patient scheduled for dialysis and right axillary lymph node biopsy today. Patient having bowel movement yesterday and feeling better in compared to last few days. 04/16: Patient seen and evaluated in bedside. Order lidocaine patch for shoulder pain and eye drops for conjunctivitis. Sestamibi scan pending tomorrow. Surgery on board possible parathyroidectomy. 04/17: Seen and evaluated in bedside today. Bisacodyl suppository order today for constipation. Scheduled for parathyroid scan today. Surgery recommended endocrine evaluation. 04/18: Patient seen and evaluated in bedside today. Patient is still pain on and off, Dilaudid q.3h PRN. CT neck with contrast scheduled today to ruled out podiatry did not. 04/19: Seen and evaluated in bedside today. Hold blood pressure for now due to low BP. Nephrology consult appreciated. Surgery consult for possible parathyroidectomy due to CT neck shows parathyroid adenoma/hyperplasia. Patient having temperature 100.3, BCx ordered. 04/20: Patient seen and evaluated in bedside today. Patient vitals stable, no acute event overnight. Surgery recommend consult IR and biopsy thyroid nodule/parathyroid adenoma. Will follow IR recommendation. Objective vital signs Vital Sign Date Time Temp Pulse Resp B/P (MAP) Pulse Ox O2 Delivery O2 Flow Rate FiO2 04/20/25 07:05 79 18 106/79 04/20/25 05:00 97.7 97 97.7 04/19/25 20:00 Nasal Cannula* 2 28 Total Intake and Output 04/19/25 04/19/25 04/20/25 15:00 23:00 07:00 Intake Total 300 ml 400 ml Balance 300 ml 400 ml medications Current Medications Medications Dose Ordered Sig/Margarito Route Start Time Stop Time Status Last Admin Dose Admin Aspirin 81 mg DAILY PO 04/05/25 17:40 04/19/25 10:52 81 MG Atorvastatin Calcium 40 mg HS PO 04/05/25 22:00 04/19/25 21:40 40 MG Acetaminophen 650 mg Q6HP PRN PO 04/05/25 17:30 Nitroglycerin 0.4 mg Q5MINP PRN SL 04/05/25 17:30 Ondansetron HCl 4 mg Q4HP PRN IV 04/05/25 17:30 04/19/25 18:58 4 MG Multivit/Ca Carb/ B Cmplx/FA/Prenat 1 tab DAILY PO 04/06/25 10:00 04/19/25 10:52 1 TAB Quetiapine Fumarate 100 mg DAILY PO 04/06/25 10:00 04/19/25 10:51 100 MG Patient Own Medication 3 cap HS PO 04/05/25 22:00 Levothyroxine Sodium 200 mcg QAM@0600 PO 04/06/25 06:00 04/20/25 06:35 200 MCG Sevelamer HCl 1,600 mg TIDWM PO 04/06/25 08:00 04/19/25 18:25 1,600 MG Pantoprazole Sodium 40 mg DAILY@0600 PO 04/07/25 06:00 04/20/25 06:36 40 MG Albuterol 2.5 mg Q6HPRN PRN NEB 04/06/25 10:30 04/19/25 19:37 2.5 MG Carisoprodol 350 mg TID PO 04/06/25 12:00 04/19/25 21:39 350 MG Docusate Sodium 100 mg BID PRN PO 04/09/25 16:45 04/19/25 21:55 100 MG Ergocalciferol 50,000 unit Q7D PO 04/09/25 18:30 04/16/25 18:35 50,000 UNIT Patient Own Medication 1 BID FL 04/10/25 22:00 04/17/25 22:05 1 Lactulose 30 ml BID PO 04/10/25 22:00 04/18/25 10:43 30 ML Epoetin Checo-epbx 4,000 unit MWF@2100 AR 04/12/25 21:00 Hold 04/15/25 21:39 4,000 UNIT Morphine Sulfate 15 mg Q8HR PO 04/15/25 22:00 04/19/25 14:43 15 MG Polyethylene Glycol 17 gm DAILY PO 04/16/25 10:00 04/18/25 10:42 17 GM Calcitriol 1 mcg DAILY PO 04/16/25 11:30 04/19/25 10:52 1 MCG Lidocaine 1 patch DAILY TOP 04/17/25 10:00 Hold 04/17/25 09:34 1 PATCH Ciprofloxacin HCl 1 drop Q4HR EACHEYE 04/16/25 14:00 04/21/25 14:00 04/20/25 06:37 1 DROP Bisacodyl 10 mg DAILYP PRN FL 04/17/25 09:45 04/19/25 11:09 10 MG Hydromorphone HCl 0.5 mg Q3HP PRN IV 04/18/25 15:45 04/20/25 06:35 0.5 MG Vancomycin HCl 0 ml @ 0 mls/hr UD IV 04/19/25 10:00 Examination Constitutional: Patient lying on bed. Not in acute distress, On nasal cannula 2 L oxygen ENT: No: Ear pain, Ear discharge, Nose pain, Nose discharge Respiratory: Bilateral equal entry at both lung, chest tender on deep palpation Cardiovascular: No: Chest Pain, Palpitations, Orthopnea, Paroxysmal Noc. Dyspnea, Edema, Gastrointestinal: Tender on deep palpation left lower quadrant, bowel sounds present Genitourinary: Suprapubic area and renal angle non tender on deep palpation Musculoskeletal: bed-bound, right hip and sternal area [id number] tender on deep palpation Skin: tunnel catheter on left side of the chest, right groin triple-lumen catheter. No swelling, hematoma noted catheter site Neurological: Paraplegia, decreased sensation bilateral lower extremity. laboratory and microbiology Laboratory Tests 04/20/25 04:33 04/19/25 04:56 Test 04/19/25 04:56 Range/Units Serum Glucose 86 74-106 mg/dL Microbiology Date/Time Source Procedure Growth Status 04/05/25 23:15 Nose MRSA Screen - Final Methicillin Resistant S.aureus Complete 04/05/25 11:30 Blood Blood Culture - Final NO GROWTH AFTER 5 DAYS OF INCUBATION. Complete Problem List/Assessment/Plan Problem List/Assessment/Plan This is a 70-year-old female with past medical history of paraplegia since 2018 after surgery spine, CAD with no stent recent angiogram 3 months ago in [facility] reported normal, HTN, COPD on 2 L home oxygen, CHF with preserved ejection fraction, bed-bound since surgery 2018, bipolar disorder ESRD on hemodialysis Tuesday, umbilical hernia, tonsillectomy, hemorrhoids, I and D on her decubitus ulcer sacral region present to ER with complaint of chest pain for 2 weeks which is getting worse before arrived to the hospital. Chest pain was 03/20 intensity, sharp, intermitted, no aggravating or relieving factor. History of broken right hip 1 year ago and surgery done in [facility] but no prosthesis. Admission patient become hemodynamically unstable and started pressor. Off pressor on 04/07/2025. NEUROLOGY Paraplegia since 2018 after surgery in the spine History of bed-bound due to back surgery in 2018 for cyst removal. Off sedative or pressor Bed-bound since 2018 Plan: Physical therapy , fall precaution. CARDIOVASCULAR: Hypotensive shock requiring pressor support Cardiomegaly. NSTEMI likely type 2 secondary to demand ischemia History of CAD, patient denies and claims she does not have any stents in her heart. History of CHF, ND Ascending thoracic aorta is moderately dilated, measuring 3.8 cm. Dyslipidemia Trop 80s to 90s, on admission EKG showed no ST-T changes Septic Shock secondary to pneumonia Likely heart failure with preserved ejection fraction Echo on 04/06/2025 shows LVEF 65%, moderately dilated right ventricle and right atrium Cardiology: Elevated Troponin - trending up, likely demand ischemia in setting of CPR, septic shock. EKG-no ST and T-wave abnormalities. Plan Continue atorvastatin, aspirin, clopidogrel, nitroglycerin sublingual, nifedipine, hydralazine, carvedilol, lisinopril. Monitor BP, reason blood pressure medication as tolerated. PULMONARY: Acute hypoxic respiratory failure due to COPD exacerbation/pneumonia Bilateral pleural effusions Possible aspiration pneumonia Possible gram positive/Gram-negative pneumonia History of COPD with 2L home O2 History of tobacco use CT chest on 04/09/2025: Trace bilateral pleural effusions with extensive adjacent atelectasis of the posterior bilateral lower lobes. Plan: Discontinue Zosyn on 04/15/2025, Continue breathing treatment with ipratropium and albuterol. GASTROINTESTINAL: History of GERD History of ventral umbilical hernia. History of tonsillectomy. History of hemorrhoids. Sebaceous cyst abdominal wall Elevated ALP Chronic constipation likely due to bed-bound/immobilization US soft tissue abdomen: 2x1x1 cm subcutaneous cystic mass which could be represent a sebaceous cyst. Plan: :Continue Protonix , lactulose . GENITOURINARY: CKD on HD HD on Tuesday Nephrology consult appreciated Hyponatremia Hyperkalemia Hypocalcemia CT on 04/09/2025: Marked bilateral renal atrophy and cortical scarring / thinning. Nephrology consult appreciated Calcium level trending to normal level plan:Continue savelamer, hemodialysis, BMP HEMATOLOGY: Questionable metastatic disease Anemia of chronic disease secondary to renal failure Leukopenia Thrombocytopenia CT chest on 04/09/2025: Multifocal lytic lesions throughout the visualized axial and appendicular skeleton involving the vertebral bodies of the thoracic spine, bilateral humeral heads and bilateral concerning for metastatic disease. Bone scan on 03/12/2025: Indeterminate diffuse increased activity in the calvarium, maxilla and mandible. This may be related to metastatic disease or metabolic process or Paget's disease. Few foci of increased activity in the right femur and right inferior pubic ramus. This may be related to metastatic disease or trauma. Ferritin 831.3, iron 83, TIBC is 162, % saturation 26.5 on admission Plan: Monitor cbc, monitor for signs symptoms of active bleeding. METABOLIC: Hypothyroidism Vitamin D deficiency Hyperparathyroidism- secondary PTH 4192.3 Thyroid USG-no significant abnormality. THS 8.06, free T4 0.49 Lactic acid 1.0 Hemoglobin A1c 4.5 Parathyroid skin on 04/17/2025: Mild retained uptake at both lower poles which may suggest parathyroid hyperplasia or bilateral adenomas. CT neck with contrast on 04/18/2025: Nodules along the inferior tips of both thyroid lobes correspond to the abnormalities noted on recent parathyroid study and likely represent either bilateral parathyroid adenomas or parathyroid hyperplasia. Innumerable lucencies with cortical destruction throughout the visualized skeleton suggesting either metastatic disease or myeloma. Appearances are typical for a metabolic disorder. Hyperdense nodule within the midline neck below the hyoid bone, possibly ectopic thyroid tissue. Targeted ultrasound +/- tissue sampling could be considered. Surgery consult appreciated . Plan:Continue levothyroxine, vitamin D3, CT neck with contrast. Continue calcitonin . INFECTIOUS DISEASE: History of aspiration pneumonia Possible aspiration pneumonia Positive MRSA screen, mupirocin SIRS (Leukopenia and tachycardia) Right axillary lymphadenopathy/mass Bilateral conjunctivitis Blood culture x2 negative CRP 9.70 ESR 50 plan: Discontinued Zosyn on 04/15/2025. Biopsy right axillary lymph node by IR unable to do because of very small size. Discontinue Ciprofloxacin eyedrops, conjunctivitis resolved. 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 History of chronic fracture of the right inferior pubic ramus. History of paraplegia. Gait instability Lytic bony lesion Likely Renal osteodystrophy Questionable metastatic disease Possible Paget's disease of the bone Chronic Left shoulder and chronic low-back pain CT chest on 04/09/2025: Multifocal lytic lesions involving the vertebral bodies, bilateral humeral heads concerning for metastatic disease. Bone scan on 04/13/2025: Indeterminate diffuse increased activity in the calvarium, maxilla and mandible, may be related to metastatic disease or metabolic process or Paget's disease. Patient bed-bound since then Uric acid level 4.1 Rheumatoid factor<10 Plan : continue pain management with morphine 15 mg ER every 8 hour and Dilaudid. Lidocaine patch-caution with low BP Possible parathyroidectomy, surgery on board. Surgery recommend consult IR and biopsy thyroid nodule/parathyroid adenoma. Will follow IR recommendation. PSYCHIATRIC History of bipolar disorder Anxiety disorder Plan : continue alprazolam and quetiapine History of sacral ulcer History of I&D for decubitus ulcer. Sacral area healing scar tissue with no active discharge or signs symptoms of inflammation. DIET: Renal DVT prophylax: Lovenox GI prophylaxis: Protonix Bowel regimen: Lactulose, MiraLax and bisacodyl suppository as needed. Code status: Full code.-advanced care discussion 13 minutes spent. LINES/DRAINS/ACCESS: IV access: Left-sided tunneled catheter, right groin triple-lumen catheter. Drips: s/p Levophed, currently not on any drips DISPOSITION: Telemetry Patient's status discussed with patient daughter ,caregiver in bedside, nurse. More than 21minute spent with patient. Case discuss with Dr. Mcclellan Plan discussed with: Patient (Nurse, caregiver), Other Dietary Evaluation Review Recommendations by RD: Protein Supplementation Comments: 1) Add renal restriction to cardiac diet 2) Initiate Nepro qd 3) Encourage optimal PO intake 4) Follow-up with cardiology, pulmonology, and nephrology 5) Continue to monitor I&O, labs, and skin integrity Expected Outcomes/Goals: 1) appetite and labs to improve 2) wound to improve 3) f/u in 3-5 days CHANDNI BREWSTER RESIDENT Apr 20, 2025 07:33
--- NOTE | 2025-04-20 08:28 | DVH ---
CHEST RADIOGRAPH Indication: Eval for overload Technique: Single frontal view of the chest was obtained COMPARISON: CT CHEST WITHOUT CONTRAST on DOS: 04/09/25, XY CHEST PORTABLE on DOS: 04/09/25, XY CHEST PO RTABLE on DOS: 04/09/25, XY CHEST PORTABLE on DOS: 04/07/25, XY CHEST PORTABLE on DOS: 04/05/25 FINDINGS: Lines and Tubes: Tunneled left central venous catheter in satisfactory position. Lungs: Pulmonary vascular congestion, increased. Pleura: No effusion. No pneumothorax. Cardiomediastinal contours: Unchanged cardiomegaly. Bones: Thoracolumbar spinal fixation hardware, unchanged. Chronic right clavicle fracture. IMPRESSION: Increased pulmonary vascular congestion.
--- NOTE | 2025-04-20 10:25 | DVHPN2 ---
Progress Note Date Seen: Apr 20, 2025 Medical Necessity Reason Pt with a Central, PICC or Fol: Yes Subjective Patient reports: No new complaints Other Systems: Patient seen and examined by myself today in follow-up Objective vital signs Vital Sign Date Time Temp Pulse Resp B/P (MAP) Pulse Ox O2 Delivery O2 Flow Rate FiO2 04/20/25 09:40 94 17 155/88 04/20/25 09:00 97.7 90 97.7 04/20/25 08:38 Nasal Cannula* 1 24 Total Intake and Output 04/19/25 04/19/25 04/20/25 15:00 23:00 07:00 Intake Total 300 ml 400 ml Balance 300 ml 400 ml medications Current Medications Medications Dose Ordered Sig/Margarito Route Start Time Stop Time Status Last Admin Dose Admin Aspirin 81 mg DAILY PO 04/05/25 17:40 04/19/25 10:52 81 MG Atorvastatin Calcium 40 mg HS PO 04/05/25 22:00 04/19/25 21:40 40 MG Acetaminophen 650 mg Q6HP PRN PO 04/05/25 17:30 Nitroglycerin 0.4 mg Q5MINP PRN SL 04/05/25 17:30 Ondansetron HCl 4 mg Q4HP PRN IV 04/05/25 17:30 04/19/25 18:58 4 MG Multivit/Ca Carb/ B Cmplx/FA/Prenat 1 tab DAILY PO 04/06/25 10:00 04/19/25 10:52 1 TAB Quetiapine Fumarate 100 mg DAILY PO 04/06/25 10:00 04/19/25 10:51 100 MG Patient Own Medication 3 cap HS PO 04/05/25 22:00 Levothyroxine Sodium 200 mcg QAM@0600 PO 04/06/25 06:00 04/20/25 06:35 200 MCG Sevelamer HCl 1,600 mg TIDWM PO 04/06/25 08:00 04/19/25 18:25 1,600 MG Pantoprazole Sodium 40 mg DAILY@0600 PO 04/07/25 06:00 04/20/25 06:36 40 MG Albuterol 2.5 mg Q6HPRN PRN NEB 04/06/25 10:30 04/20/25 08:38 2.5 MG Carisoprodol 350 mg TID PO 04/06/25 12:00 04/19/25 21:39 350 MG Docusate Sodium 100 mg BID PRN PO 04/09/25 16:45 04/19/25 21:55 100 MG Ergocalciferol 50,000 unit Q7D PO 04/09/25 18:30 04/16/25 18:35 50,000 UNIT Patient Own Medication 1 BID [place] 04/10/25 22:00 04/17/25 22:05 1 Lactulose 30 ml BID PO 04/10/25 22:00 04/18/25 10:43 30 ML Epoetin Checo-epbx 4,000 unit MWF@2100 [place] 04/12/25 21:00 Hold 04/15/25 21:39 4,000 UNIT Morphine Sulfate 15 mg Q8HR PO 04/15/25 22:00 04/19/25 14:43 15 MG Polyethylene Glycol 17 gm DAILY PO 04/16/25 10:00 04/18/25 10:42 17 GM Calcitriol 1 mcg DAILY PO 04/16/25 11:30 04/19/25 10:52 1 MCG Lidocaine 1 patch DAILY TOP 04/17/25 10:00 Hold 04/17/25 09:34 1 PATCH Ciprofloxacin HCl 1 drop Q4HR EACHEYE 04/16/25 14:00 04/21/25 14:00 04/20/25 06:37 1 DROP Bisacodyl 10 mg DAILYP PRN [place] 04/17/25 09:45 04/19/25 11:09 10 MG Hydromorphone HCl 0.5 mg Q3HP PRN IV 04/18/25 15:45 04/20/25 09:40 0.5 MG Vancomycin HCl 0 ml @ 0 mls/hr UD IV 04/19/25 10:00 Examination: LUNGS:Normal, CVS:Normal, MSK:Normal laboratory and microbiology Laboratory Tests 04/20/25 04:33 04/19/25 04:56 Test 04/19/25 04:56 Range/Units Serum Glucose 86 74-106 mg/dL Microbiology Date/Time Source Procedure Growth Status 04/05/25 23:15 Nose MRSA Screen - Final Methicillin Resistant S.aureus Complete 04/05/25 11:30 Blood Blood Culture - Final NO GROWTH AFTER 5 DAYS OF INCUBATION. Complete Problem List/Assessment/Plan Problem List/Assessment/Plan ESRD on dialysis Acute on chronic respiratory failure, O2 supply Acute on chronic diastolic Congestive heart failure NSTEMI Paraplegia Multifocal lytic lesions on CT scan concerning for metastatic disease Anemia of chronic kidney disease Severe hyperparathyroidism, PTH more than 4000 Renal osteodystrophy Fever Hypotension Recommendations Hemodialysis tomorrow Epogen 95811 subQ 3 times weekly Strict I&Os Renal diet Blood cultures Vancomycin IV per pharmacy Hold blood pressure medicine Cardiology consult Calcitriol 1 mcg p.o. q.day Parathyroid sestamibi nuclear medicine scan consistent with bilateral adenomas Surgery consult for subtotal parathyroidectomy We will continue to follow Total care time 25 minutes Plan discussed with: Patient Dietary Evaluation Review Recommendations by RD: Protein Supplementation Comments: 1) Add renal restriction to cardiac diet 2) Initiate Nepro qd 3) Encourage optimal PO intake 4) Follow-up with cardiology, pulmonology, and nephrology 5) Continue to monitor I&O, labs, and skin integrity Expected Outcomes/Goals: 1) appetite and labs to improve 2) wound to improve 3) f/u in 3-5 days DANNY BIGGS MD Apr 20, 2025 10:25
[2025-04-20] MEDS: VANCOMYCIN 500mg/100mL 100 ML IV ONE (15:00)
[2025-04-20] MEDS: EPOETIN ALFA-EPBX 10,000 UNIT/1ML VIAL SC ONE (21:35)
[2025-04-21] VITALS (10 sets, daily range): BP systolic 100–118; BP diastolic 54–84; PULSE 81–95; RESP 15–20; TEMP 97.7–99.2; O2SAT 95–100
--- NOTE | 2025-04-21 00:45 | DVHPN2 ---
Progress Note - Dictate Date Seen: Apr 20, 2025 Medical Necessity Reason Pt with a Central, PICC or Fol: Yes Subjective Patient was seen and evaluated in follow up. Patient is on 1 LPM NC. Patient is scheduled for procedure next week. HGB 7.6, HCT 24.2, [employer] 2.78. Telemetry reviewed. vital signs Vital Sign Date Time Temp Pulse Resp B/P (MAP) Pulse Ox O2 Delivery O2 Flow Rate FiO2 04/20/25 09:40 94 17 155/88 04/20/25 09:00 97.7 90 97.7 04/20/25 08:38 Nasal Cannula* 1 24 Total Intake and Output 04/19/25 04/19/25 04/20/25 15:00 23:00 07:00 Intake Total 300 ml 400 ml Balance 300 ml 400 ml medications Current Medications Medications Dose Ordered Sig/Margarito Route Start Time Stop Time Status Last Admin Dose Admin Aspirin 81 mg DAILY PO 04/05/25 17:40 04/19/25 10:52 81 MG Atorvastatin Calcium 40 mg HS PO 04/05/25 22:00 04/19/25 21:40 40 MG Acetaminophen 650 mg Q6HP PRN PO 04/05/25 17:30 Nitroglycerin 0.4 mg Q5MINP PRN SL 04/05/25 17:30 Ondansetron HCl 4 mg Q4HP PRN IV 04/05/25 17:30 04/19/25 18:58 4 MG Multivit/Ca Carb/ B Cmplx/FA/Prenat 1 tab DAILY PO 04/06/25 10:00 04/19/25 10:52 1 TAB Quetiapine Fumarate 100 mg DAILY PO 04/06/25 10:00 04/19/25 10:51 100 MG Patient Own Medication 3 cap HS PO 04/05/25 22:00 Levothyroxine Sodium 200 mcg QAM@0600 PO 04/06/25 06:00 04/20/25 06:35 200 MCG Sevelamer HCl 1,600 mg TIDWM PO 04/06/25 08:00 04/19/25 18:25 1,600 MG Pantoprazole Sodium 40 mg DAILY@0600 PO 04/07/25 06:00 04/20/25 06:36 40 MG Albuterol 2.5 mg Q6HPRN PRN NEB 04/06/25 10:30 04/20/25 08:38 2.5 MG Carisoprodol 350 mg TID PO 04/06/25 12:00 04/19/25 21:39 350 MG Docusate Sodium 100 mg BID PRN PO 04/09/25 16:45 04/19/25 21:55 100 MG Ergocalciferol 50,000 unit Q7D PO 04/09/25 18:30 04/16/25 18:35 50,000 UNIT Patient Own Medication 1 BID MT 04/10/25 22:00 04/17/25 22:05 1 Lactulose 30 ml BID PO 04/10/25 22:00 04/18/25 10:43 30 ML Epoetin Checo-epbx 4,000 unit MWF@2100 OR 04/12/25 21:00 Hold 04/15/25 21:39 4,000 UNIT Morphine Sulfate 15 mg Q8HR PO 04/15/25 22:00 04/19/25 14:43 15 MG Polyethylene Glycol 17 gm DAILY PO 04/16/25 10:00 04/18/25 10:42 17 GM Calcitriol 1 mcg DAILY PO 04/16/25 11:30 04/19/25 10:52 1 MCG Lidocaine 1 patch DAILY TOP 04/17/25 10:00 Hold 04/17/25 09:34 1 PATCH Ciprofloxacin HCl 1 drop Q4HR EACHEYE 04/16/25 14:00 04/21/25 14:00 04/20/25 06:37 1 DROP Bisacodyl 10 mg DAILYP PRN MT 04/17/25 09:45 04/19/25 11:09 10 MG Hydromorphone HCl 0.5 mg Q3HP PRN IV 04/18/25 15:45 04/20/25 09:40 0.5 MG Vancomycin HCl 0 ml @ 0 mls/hr UD IV 04/19/25 10:00 objective GENERAL: Alert and oriented x 3. No acute distress. Paraplegic. EYES: PERRL, EOMI. Anicteric. HENT: Moist mucous membranes. LUNGS: Clear to auscultation bilaterally. CARDIOVASCULAR: Regular rate and rhythm. ABDOMEN: Soft, nontender and nondistended. EXTREMITIES: No edema. NEUROLOGIC: No focal neurological deficits. SKIN: Wounds (Decubitus). laboratory and microbiology Laboratory Tests 04/20/25 04:33 04/19/25 04:56 Test 04/19/25 04:56 Range/Units Serum Glucose 86 74-106 mg/dL Problem List NSTEMI likely type 2. Anemia likely due to chronic renal failure. Cardiomegaly. Probable pneumonia. Elevated ALP. Hyponatremia. Hyperkalemia. Thrombocytopenia. Acute on chronic renal failure on dialysis (M/W/F). Acute hypoxic respiratory failure on supportive oxygen. 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 History of chronic fracture of the right inferior pubic ramus. History of paraplegia. History of CAD, patient denies and claims she does not have any stents in her heart. History of hypertension. History of COPD. History of CHF. History of bed-bound due to back surgery in 2018 for cyst removal. History of UT. History of bipolar disease. History of ventral umbilical hernia. History of tonsillectomy. History of hemorrhoids. History of I&D for decubitus ulcer. History of tobacco use. Assessment/Plan Continued all current supportive medical care. GI prophylactics. Tylenol and Dilaudid for pain management. Additional plan as per the hospital course. Dietary Evaluation Review Recommendations by RD: Protein Supplementation Comments: 1) Add renal restriction to cardiac diet 2) Initiate Nepro qd 3) Encourage optimal PO intake 4) Follow-up with cardiology, pulmonology, and nephrology 5) Continue to monitor I&O, labs, and skin integrity Expected Outcomes/Goals: 1) appetite and labs to improve 2) wound to improve 3) f/u in 3-5 days Plan discussed with: Patient WENDY COREAS MD Apr 20, 2025 12:35
[2025-04-21 06:27] LABS: Hemoglobin 8.2 g/dL (12.2-16.2); Mean Corpuscular Volume 102.8 fL (80.0-100.0)
[2025-04-21 06:30] LABS: Hematocrit 26.1 % (36.0-46.0); Mean Corpuscular Hemoglobin 32.2 pg (28.0-32.0)
[2025-04-21 07:35] LABS: Total Cells Counted 100.0 (100)
--- NOTE | 2025-04-21 10:49 | DVHPN2 ---
Progress Note Date Seen: Apr 21, 2025 Medical Necessity Reason Pt with a Central, PICC or Fol: Yes Subjective Patient reports: No new complaints Other Systems: Patient seen and examined by myself today in follow-up Objective vital signs Vital Sign Date Time Temp Pulse Resp B/P (MAP) Pulse Ox O2 Delivery O2 Flow Rate FiO2 04/21/25 08:48 84 19 100/56 04/21/25 08:30 98.9 100 98.9 04/21/25 08:00 Nasal Cannula* 2 28 Total Intake and Output 04/20/25 04/20/25 04/21/25 15:00 23:00 07:00 Intake Total 100 ml 300 ml Balance 100 ml 300 ml medications Current Medications Medications Dose Ordered Sig/Margarito Route Start Time Stop Time Status Last Admin Dose Admin Aspirin 81 mg DAILY PO 04/05/25 17:40 04/21/25 09:22 81 MG Atorvastatin Calcium 40 mg HS PO 04/05/25 22:00 04/20/25 22:39 40 MG Acetaminophen 650 mg Q6HP PRN PO 04/05/25 17:30 Nitroglycerin 0.4 mg Q5MINP PRN SL 04/05/25 17:30 Ondansetron HCl 4 mg Q4HP PRN IV 04/05/25 17:30 04/21/25 06:43 4 MG Multivit/Ca Carb/ B Cmplx/FA/Prenat 1 tab DAILY PO 04/06/25 10:00 04/21/25 09:21 1 TAB Quetiapine Fumarate 100 mg DAILY PO 04/06/25 10:00 04/21/25 09:22 100 MG Patient Own Medication 3 cap HS PO 04/05/25 22:00 Levothyroxine Sodium 200 mcg QAM@0600 PO 04/06/25 06:00 04/21/25 05:32 200 MCG Sevelamer HCl 1,600 mg TIDWM PO 04/06/25 08:00 04/21/25 08:00 1,600 MG Pantoprazole Sodium 40 mg DAILY@0600 PO 04/07/25 06:00 04/21/25 05:32 40 MG Albuterol 2.5 mg Q6HPRN PRN NEB 04/06/25 10:30 04/20/25 08:38 2.5 MG Carisoprodol 350 mg TID PO 04/06/25 12:00 04/21/25 05:32 350 MG Docusate Sodium 100 mg BID PRN PO 04/09/25 16:45 04/21/25 09:40 100 MG Ergocalciferol 50,000 unit Q7D PO 04/09/25 18:30 04/16/25 18:35 50,000 UNIT Patient Own Medication 1 BID LA 04/10/25 22:00 04/20/25 10:00 1 Lactulose 30 ml BID PO 04/10/25 22:00 04/20/25 14:59 30 ML Epoetin Checo-epbx 4,000 unit MWF@2100 SC 04/12/25 21:00 Hold 04/15/25 21:39 4,000 UNIT Morphine Sulfate 15 mg Q8HR PO 04/15/25 22:00 04/20/25 15:58 15 MG Polyethylene Glycol 17 gm DAILY PO 04/16/25 10:00 04/21/25 09:20 17 GM Calcitriol 1 mcg DAILY PO 04/16/25 11:30 04/21/25 09:21 1 MCG Lidocaine 1 patch DAILY TOP 04/17/25 10:00 Hold 04/17/25 09:34 1 PATCH Ciprofloxacin HCl 1 drop Q4HR EACHEYE 04/16/25 14:00 04/21/25 14:00 04/21/25 09:23 1 DROP Bisacodyl 10 mg DAILYP PRN LA 04/17/25 09:45 04/19/25 11:09 10 MG Hydromorphone HCl 0.5 mg Q3HP PRN IV 04/18/25 15:45 04/21/25 08:48 0.5 MG Vancomycin HCl 0 ml @ 0 mls/hr UD IV 04/19/25 10:00 Examination: LUNGS:Normal, CVS:Normal, MSK:Normal laboratory and microbiology Laboratory Tests 04/21/25 05:11 04/19/25 04:56 Test 04/19/25 04:56 Range/Units Serum Glucose 86 74-106 mg/dL Microbiology Date/Time Source Procedure Growth Status 04/19/25 10:20 Blood Blood Culture - Preliminary NO GROWTH AFTER 48 HOURS OF INCUBATION. Resulted 04/05/25 23:15 Nose MRSA Screen - Final Methicillin Resistant S.aureus Complete Problem List/Assessment/Plan Problem List/Assessment/Plan ESRD on dialysis Acute on chronic respiratory failure, O2 supply Acute on chronic diastolic Congestive heart failure NSTEMI Paraplegia Multifocal lytic lesions on CT scan concerning for metastatic disease Anemia of chronic kidney disease Severe hyperparathyroidism, PTH more than 4000 Renal osteodystrophy Fever Hypotension Recommendations Hemodialysis tomorrow Epogen 31371 subQ 3 times weekly Strict I&Os Renal diet Blood cultures Vancomycin IV per pharmacy Hold blood pressure medicine Cardiology consult Calcitriol 1 mcg p.o. q.day Parathyroid sestamibi nuclear medicine scan consistent with bilateral adenomas Surgery consult for subtotal parathyroidectomy We will continue to follow Total care time 25 minutes Plan discussed with: Patient Dietary Evaluation Review Recommendations by RD: Protein Supplementation Comments: 1) Add renal restriction to cardiac diet 2) Initiate Nepro qd 3) Encourage optimal PO intake 4) Follow-up with cardiology, pulmonology, and nephrology 5) Continue to monitor I&O, labs, and skin integrity Expected Outcomes/Goals: 1) appetite and labs to improve 2) wound to improve 3) f/u in 3-5 days DANNY BIGGS MD Apr 21, 2025 10:49
[2025-04-21] MEDS: BISACODYL 10 MG RECT SUPP PR ONE (12:00)
--- NOTE | 2025-04-21 15:32 | DVHPNRES ---
Progress Note Date Seen: Apr 21, 2025 Resident Creating Document: DAVID METZ RESDIENT Medical Necessity Reason Pt with a Central, PICC or Fol: Yes Subjective Review of Systems This is a 70-year-old female with past medical history of paraplegia since 2018 after surgery spine, CAD with no stent recent angiogram 3 months ago in [facility] reported normal, HTN, COPD on 2 L home oxygen, CHF with preserved ejection fraction, bed-bound since surgery 2017, bipolar disorder ESRD on hemodialysis Tuesday umbilical hernia, tonsillectomy, hemorrhoids, I and D on her decubitus ulcer sacral region present to ER with complaint of chest pain for 2 weeks which is getting worse before arriving to the hospital. Esterase pain was 9/10 intensity, sharp, intermitted, no aggravating or relieving factor. History of broken right hip 1 year ago and surgery done in [facility] but no prosthesis. Admission patient become hemodynamically unstable and started pressor. Off pressor on 04/07/2025. Past medical history: CAD, CHF, HTN, HI, COPD on 2 L home oxygen, bipolar disorder, ESRD, ventral umbilical hernia, hemorrhoid Past Surgical history: Tonsillectomy Family history cancer-mother with pacemaker and breast cancer, father with colon cancer Social history: X 0 smoker, quit 1 year ago, no ETOH use. Denies any illicit drug Family history lives with family, having caregivers 04/08/2025: Patient seen and evaluated in bedside. Patient complained left upper extremity pain associated with chest pain. No pain on rest but aggravated on movement. Labs for rheumatoid factor, uric acid level we will follow. Physical therapy during discharge. 04/09/2025: Patient seen and evaluated in bedside today. Patient left hand swelling is improving but chest pain on deep palpation. Colace and lactulose ordered for constipation, monitor for bowel movement. Patient currently on oxygen via nasal cannula. 04/10: Patient seen and evaluated in bedside today. Patient chest pain on palpation sternal area. Ordered for bone scan due to CT showed lytic bone lesion. Patient will be benefitted per physical therapy. 04/11: Patient seen and evaluated in bedside. Patient pain better in compared to yesterday switching morphine ER. Bone scan to rule out lytic lesion on CT chest ordered. Follow-up for bowel movement. Denies any fever, abdominal pain, headache. 04/12: Patient seen and evaluated in bedside today. Hemodialysis scheduled today. Patient chest pain is improving. Bone scan done yesterday and IR consulted biopsy right axillary lymph node. 04/15: Patient seen and evaluated in bedside today. Patient scheduled for dialysis and right axillary lymph node biopsy today. Patient having bowel movement yesterday and feeling better in compared to last few days. 04/16: Patient seen and evaluated in bedside. Order lidocaine patch for shoulder pain and eye drops for conjunctivitis. Sestamibi scan pending tomorrow. Surgery on board possible parathyroidectomy. 04/17: Seen and evaluated in bedside today. Bisacodyl suppository order today for constipation. Scheduled for parathyroid scan today. Surgery recommended endocrine evaluation. 04/18: Patient seen and evaluated in bedside today. Patient is still pain on and off, Dilaudid q.3h PRN. CT neck with contrast scheduled today to ruled out podiatry did not. 04/19: Seen and evaluated in bedside today. Hold blood pressure for now due to low BP. Nephrology consult appreciated. Surgery consult for possible parathyroidectomy due to CT neck shows parathyroid adenoma/hyperplasia. Patient having temperature 100.3, BCx ordered. 04/20: Patient seen and evaluated in bedside today. Patient vitals stable, no acute event overnight. Surgery recommend consult IR and biopsy thyroid nodule/parathyroid adenoma. Will follow IR recommendation. 04/20: Patient seen and evaluated in bedside today. Patient vitals stable, no acute event overnight. Surgery recommend consult IR and biopsy thyroid nodule/parathyroid adenoma. Will follow IR recommendation. Objective vital signs Vital Sign Date Time Temp Pulse Resp B/P (MAP) Pulse Ox O2 Delivery O2 Flow Rate FiO2 04/21/25 14:58 96 12 107/64 04/21/25 13:00 99.2 96 99.2 04/21/25 08:00 Nasal Cannula* 2 28 Total Intake and Output 04/20/25 04/20/25 04/21/25 15:00 23:00 07:00 Intake Total 100 ml 300 ml Balance 100 ml 300 ml medications Current Medications Medications Dose Ordered Sig/Margarito Route Start Time Stop Time Status Last Admin Dose Admin Aspirin 81 mg DAILY PO 04/05/25 17:40 04/21/25 09:22 81 MG Atorvastatin Calcium 40 mg HS PO 04/05/25 22:00 04/20/25 22:39 40 MG Acetaminophen 650 mg Q6HP PRN PO 04/05/25 17:30 Nitroglycerin 0.4 mg Q5MINP PRN SL 04/05/25 17:30 Ondansetron HCl 4 mg Q4HP PRN IV 04/05/25 17:30 04/21/25 06:43 4 MG Multivit/Ca Carb/ B Cmplx/FA/Prenat 1 tab DAILY PO 04/06/25 10:00 04/21/25 09:21 1 TAB Quetiapine Fumarate 100 mg DAILY PO 04/06/25 10:00 04/21/25 09:22 100 MG Patient Own Medication 3 cap HS PO 04/05/25 22:00 Levothyroxine Sodium 200 mcg QAM@0600 PO 04/06/25 06:00 04/21/25 05:32 200 MCG Sevelamer HCl 1,600 mg TIDWM PO 04/06/25 08:00 04/21/25 12:00 1,600 MG Pantoprazole Sodium 40 mg DAILY@0600 PO 04/07/25 06:00 04/21/25 05:32 40 MG Albuterol 2.5 mg Q6HPRN PRN NEB 04/06/25 10:30 04/20/25 08:38 2.5 MG Carisoprodol 350 mg TID PO 04/06/25 12:00 04/21/25 05:32 350 MG Docusate Sodium 100 mg BID PRN PO 04/09/25 16:45 04/21/25 09:40 100 MG Ergocalciferol 50,000 unit Q7D PO 04/09/25 18:30 04/16/25 18:35 50,000 UNIT Patient Own Medication 1 BID HI 04/10/25 22:00 04/21/25 10:00 1 Lactulose 30 ml BID PO 04/10/25 22:00 04/20/25 14:59 30 ML Epoetin Checo-epbx 4,000 unit MWF@2100 PA 04/12/25 21:00 Hold 04/15/25 21:39 4,000 UNIT Morphine Sulfate 15 mg Q8HR PO 04/15/25 22:00 04/21/25 14:00 15 MG Polyethylene Glycol 17 gm DAILY PO 04/16/25 10:00 04/21/25 09:20 17 GM Calcitriol 1 mcg DAILY PO 04/16/25 11:30 04/21/25 09:21 1 MCG Lidocaine 1 patch DAILY TOP 04/17/25 10:00 Hold 04/17/25 09:34 1 PATCH Bisacodyl 10 mg DAILYP PRN HI 04/17/25 09:45 04/19/25 11:09 10 MG Hydromorphone HCl 0.5 mg Q3HP PRN IV 04/18/25 15:45 04/21/25 14:08 0.5 MG Vancomycin HCl 0 ml @ 0 mls/hr UD IV 04/19/25 10:00 Examination Constitutional: Patient lying on bed. Not in acute distress, On nasal cannula 2 L oxygen ENT: No: Ear pain, Ear discharge, Nose pain, Nose discharge Respiratory: Bilateral equal entry at both lung, chest tender on deep palpation Cardiovascular: No: Chest Pain, Palpitations, Orthopnea, Paroxysmal Noc. Dyspnea, Edema, Gastrointestinal: Tender on deep palpation left lower quadrant, bowel sounds present Genitourinary: Suprapubic area and renal angle non tender on deep palpation Musculoskeletal: bed-bound, right hip and sternal area [id number] tender on deep palpation Skin: tunnel catheter on left side of the chest, right groin triple-lumen catheter. No swelling, hematoma noted catheter site Neurological: Paraplegia, decreased sensation bilateral lower extremity. laboratory and microbiology Laboratory Tests 04/21/25 05:11 04/19/25 04:56 Test 04/19/25 04:56 Range/Units Serum Glucose 86 74-106 mg/dL Microbiology Date/Time Source Procedure Growth Status 04/19/25 10:20 Blood Blood Culture - Preliminary NO GROWTH AFTER 48 HOURS OF INCUBATION. Resulted 04/05/25 23:15 Nose MRSA Screen - Final Methicillin Resistant S.aureus Complete Labs and/or images reviewed: Labs reviewed by me, Image(s) reviewed by me Problem List/Assessment/Plan Problem List/Assessment/Plan This is a 70-year-old female with past medical history of paraplegia since 2018 after surgery spine, CAD with no stent recent angiogram 3 months ago in [facility] reported normal, HTN, COPD on 2 L home oxygen, CHF with preserved ejection fraction, bed-bound since surgery 2017, bipolar disorder ESRD on hemodialysis Tuesday, umbilical hernia, tonsillectomy, hemorrhoids, I and D on her decubitus ulcer sacral region present to ER with complaint of chest pain for 2 weeks which is getting worse before arrived to the hospital. Chest pain was 9/10 intensity, sharp, intermitted, no aggravating or relieving factor. History of broken right hip 1 year ago and surgery done in [facility] but no prosthesis. Admission patient become hemodynamically unstable and started pressor. Off pressor on 04/07/2025. NEUROLOGY Paraplegia since 2018 after surgery in the spine History of bed-bound due to back surgery in 2018 for cyst removal. Off sedative or pressor Bed-bound since 2018 Plan: Physical therapy , fall precaution. CARDIOVASCULAR: Hypotensive shock requiring pressor support Cardiomegaly. NSTEMI likely type 2 secondary to demand ischemia History of CAD, patient denies and claims she does not have any stents in her heart. History of CHF, HI Ascending thoracic aorta is moderately dilated, measuring 3.8 cm. Dyslipidemia Trop 80s to 90s, on admission EKG showed no ST-T changes Septic Shock secondary to pneumonia Likely heart failure with preserved ejection fraction Echo on 04/06/2025 shows LVEF 65%, moderately dilated right ventricle and right atrium Cardiology: Elevated Troponin - trending up, likely demand ischemia in setting of CPR, septic shock. EKG-no ST and T-wave abnormalities. Plan Continue atorvastatin, aspirin, clopidogrel, nitroglycerin sublingual, nifedipine, hydralazine, carvedilol, lisinopril. Monitor BP, reason blood pressure medication as tolerated. PULMONARY: Acute hypoxic respiratory failure due to COPD exacerbation/pneumonia Bilateral pleural effusions Possible aspiration pneumonia Possible gram positive/Gram-negative pneumonia History of COPD with 2L home O2 History of tobacco use CT chest on 04/09/2025: Trace bilateral pleural effusions with extensive adjacent atelectasis of the posterior bilateral lower lobes. Plan: Discontinue Zosyn on 04/15/2025, Continue breathing treatment with ipratropium and albuterol. GASTROINTESTINAL: History of GERD History of ventral umbilical hernia. History of tonsillectomy. History of hemorrhoids. Sebaceous cyst abdominal wall Elevated ALP Chronic constipation likely due to bed-bound/immobilization US soft tissue abdomen: 2x1x1 cm subcutaneous cystic mass which could be represent a sebaceous cyst. Plan: :Continue Protonix , lactulose . GENITOURINARY: CKD on HD HD on Tuesday Nephrology consult appreciated Hyponatremia Hyperkalemia Hypocalcemia CT on 04/09/2025: Marked bilateral renal atrophy and cortical scarring / thinning. Nephrology consult appreciated Calcium level trending to normal level plan:Continue savelamer, hemodialysis, BMP HEMATOLOGY: Questionable metastatic disease Anemia of chronic disease secondary to renal failure Leukopenia Thrombocytopenia CT chest on 04/09/2025: Multifocal lytic lesions throughout the visualized axial and appendicular skeleton involving the vertebral bodies of the thoracic spine, bilateral humeral heads and bilateral concerning for metastatic disease. Bone scan on 03/12/2025: Indeterminate diffuse increased activity in the calvarium, maxilla and mandible. This may be related to metastatic disease or metabolic process or Paget's disease. Few foci of increased activity in the right femur and right inferior pubic ramus. This may be related to metastatic disease or trauma. Ferritin 831.3, iron 83, TIBC is 162, % saturation 26.5 on admission Plan: Monitor cbc, monitor for signs symptoms of active bleeding. METABOLIC: Hypothyroidism Vitamin D deficiency Hyperparathyroidism- secondary PTH 4192.3 Thyroid USG-no significant abnormality. THS 8.06, free T4 0.49 Lactic acid 1.0 Hemoglobin A1c 4.5 Parathyroid skin on 04/17/2025: Mild retained uptake at both lower poles which may suggest parathyroid hyperplasia or bilateral adenomas. CT neck with contrast on 04/18/2025: Nodules along the inferior tips of both thyroid lobes correspond to the abnormalities noted on recent parathyroid study and likely represent either bilateral parathyroid adenomas or parathyroid hyperplasia. Innumerable lucencies with cortical destruction throughout the visualized skeleton suggesting either metastatic disease or myeloma. Appearances are typical for a metabolic disorder. Hyperdense nodule within the midline neck below the hyoid bone, possibly ectopic thyroid tissue. Targeted ultrasound +/- tissue sampling could be considered. Surgery consult appreciated . Plan:Continue levothyroxine, vitamin D3, CT neck with contrast. Continue calcitonin . INFECTIOUS DISEASE: History of aspiration pneumonia Possible aspiration pneumonia Positive MRSA screen, mupirocin SIRS (Leukopenia and tachycardia) Right axillary lymphadenopathy/mass Bilateral conjunctivitis Blood culture x2 negative CRP 9.70 ESR 50 plan: Discontinued Zosyn on 04/15/2025. Biopsy right axillary lymph node by IR unable to do because of very small size. Discontinue Ciprofloxacin eyedrops, conjunctivitis resolved. 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 History of chronic fracture of the right inferior pubic ramus. History of paraplegia. Gait instability Lytic bony lesion Likely Renal osteodystrophy Questionable metastatic disease Possible Paget's disease of the bone Chronic Left shoulder and chronic low-back pain CT chest on 04/09/2025: Multifocal lytic lesions involving the vertebral bodies, bilateral humeral heads concerning for metastatic disease. Bone scan on 04/13/2025: Indeterminate diffuse increased activity in the calvarium, maxilla and mandible, may be related to metastatic disease or metabolic process or Paget's disease. Patient bed-bound since then Uric acid level 4.1 Rheumatoid factor<10 Plan : continue pain management with morphine 15 mg ER every 8 hour and Dilaudid. Lidocaine patch-caution with low BP Possible parathyroidectomy, surgery on board. Surgery recommend consult IR and biopsy thyroid nodule/parathyroid adenoma. Will follow IR recommendation. PSYCHIATRIC History of bipolar disorder Anxiety disorder Plan : continue alprazolam and quetiapine History of sacral ulcer History of I&D for decubitus ulcer. Sacral area healing scar tissue with no active discharge or signs symptoms of inflammation. DIET: Renal DVT prophylax: Lovenox GI prophylaxis: Protonix Bowel regimen: Lactulose, MiraLax and bisacodyl suppository as needed. Code status: Full code.-advanced care discussion 13 minutes spent. LINES/DRAINS/ACCESS: IV access: Left-sided tunneled catheter, right groin triple-lumen catheter. Drips: s/p Levophed, currently not on any drips DISPOSITION: Telemetry Patient's status discussed with patient daughter ,caregiver in bedside, nurse. More than 21minute spent with patient. Case discuss with Dr. Mcclellan Plan discussed with: Other Dietary Evaluation Review Recommendations by RD: Protein Supplementation Comments: 1) Add renal restriction to cardiac diet 2) Initiate Nepro qd 3) Encourage optimal PO intake 4) Follow-up with cardiology, pulmonology, and nephrology 5) Continue to monitor I&O, labs, and skin integrity Expected Outcomes/Goals: 1) appetite and labs to improve 2) wound to improve 3) f/u in 3-5 days DAVID METZ Apr 21, 2025 15:32
[2025-04-21] MEDS: LIDOCAINE 5% TOPICAL PATCH TOP ONE (17:30)
--- NOTE | 2025-04-21 23:49 | DVHPN2 ---
Progress Note - Dictate Date Seen: Apr 21, 2025 Medical Necessity Reason Pt with a Central, PICC or Fol: Yes Subjective Patient was seen and evaluated in follow up. Patient is on 2 LPM NC. WBC 4.2, HGB 8.2, HCT 26.1, HVAC R INSTRUCTOR 2.53. Telemetry reviewed. vital signs Vital Sign Date Time Temp Pulse Resp B/P (MAP) Pulse Ox O2 Delivery O2 Flow Rate FiO2 04/21/25 13:00 99.2 83 20 118/84 (95) 96 99.2 04/21/25 08:00 Nasal Cannula* 2 28 Total Intake and Output 04/20/25 04/20/25 04/21/25 15:00 23:00 07:00 Intake Total 100 ml 300 ml Balance 100 ml 300 ml medications Current Medications Medications Dose Ordered Sig/Margarito Route Start Time Stop Time Status Last Admin Dose Admin Aspirin 81 mg DAILY PO 04/05/25 17:40 04/21/25 09:22 81 MG Atorvastatin Calcium 40 mg HS PO 04/05/25 22:00 04/20/25 22:39 40 MG Acetaminophen 650 mg Q6HP PRN PO 04/05/25 17:30 Nitroglycerin 0.4 mg Q5MINP PRN SL 04/05/25 17:30 Ondansetron HCl 4 mg Q4HP PRN IV 04/05/25 17:30 04/21/25 06:43 4 MG Multivit/Ca Carb/ B Cmplx/FA/Prenat 1 tab DAILY PO 04/06/25 10:00 04/21/25 09:21 1 TAB Quetiapine Fumarate 100 mg DAILY PO 04/06/25 10:00 04/21/25 09:22 100 MG Patient Own Medication 3 cap HS PO 04/05/25 22:00 Levothyroxine Sodium 200 mcg QAM@0600 PO 04/06/25 06:00 04/21/25 05:32 200 MCG Sevelamer HCl 1,600 mg TIDWM PO 04/06/25 08:00 04/21/25 12:00 1,600 MG Pantoprazole Sodium 40 mg DAILY@0600 PO 04/07/25 06:00 04/21/25 05:32 40 MG Albuterol 2.5 mg Q6HPRN PRN NEB 04/06/25 10:30 04/20/25 08:38 2.5 MG Carisoprodol 350 mg TID PO 04/06/25 12:00 04/21/25 05:32 350 MG Docusate Sodium 100 mg BID PRN PO 04/09/25 16:45 04/21/25 09:40 100 MG Ergocalciferol 50,000 unit Q7D PO 04/09/25 18:30 04/16/25 18:35 50,000 UNIT Patient Own Medication 1 BID ID 04/10/25 22:00 04/21/25 10:00 1 Lactulose 30 ml BID PO 04/10/25 22:00 04/20/25 14:59 30 ML Epoetin Checo-epbx 4,000 unit MWF@2100 SC 04/12/25 21:00 Hold 04/15/25 21:39 4,000 UNIT Morphine Sulfate 15 mg Q8HR PO 04/15/25 22:00 04/20/25 15:58 15 MG Polyethylene Glycol 17 gm DAILY PO 04/16/25 10:00 04/21/25 09:20 17 GM Calcitriol 1 mcg DAILY PO 04/16/25 11:30 04/21/25 09:21 1 MCG Lidocaine 1 patch DAILY TOP 04/17/25 10:00 Hold 04/17/25 09:34 1 PATCH Ciprofloxacin HCl 1 drop Q4HR EACHEYE 04/16/25 14:00 04/21/25 14:00 04/21/25 09:23 1 DROP Bisacodyl 10 mg DAILYP PRN ID 04/17/25 09:45 04/19/25 11:09 10 MG Hydromorphone HCl 0.5 mg Q3HP PRN IV 04/18/25 15:45 04/21/25 08:48 0.5 MG Vancomycin HCl 0 ml @ 0 mls/hr UD IV 04/19/25 10:00 objective GENERAL: Alert and oriented x 3. No acute distress. Paraplegic. EYES: PERRL, EOMI. Anicteric. HENT: Moist mucous membranes. LUNGS: Clear to auscultation bilaterally. CARDIOVASCULAR: Regular rate and rhythm. ABDOMEN: Soft, nontender and nondistended. EXTREMITIES: No edema. NEUROLOGIC: No focal neurological deficits. SKIN: Wounds (Decubitus). laboratory and microbiology Laboratory Tests 04/21/25 05:11 04/19/25 04:56 Test 04/19/25 04:56 Range/Units Serum Glucose 86 74-106 mg/dL Problem List NSTEMI likely type 2. Anemia likely due to chronic renal failure. Cardiomegaly. Probable pneumonia. Elevated ALP. Hyponatremia. Hyperkalemia. Thrombocytopenia. Acute on chronic renal failure on dialysis (M/W/F). Acute hypoxic respiratory failure on supportive oxygen. 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 History of chronic fracture of the right inferior pubic ramus. History of paraplegia. History of CAD, patient denies and claims she does not have any stents in her heart. History of hypertension. History of COPD. History of CHF. History of bed-bound due to back surgery in 2018 for cyst removal. History of PA. History of bipolar disease. History of ventral umbilical hernia. History of tonsillectomy. History of hemorrhoids. History of I&D for decubitus ulcer. History of tobacco use. Assessment/Plan Continued all current supportive medical care. Aspirin. GI prophylactics. IV antibiotics as ordered. Tylenol and Dilaudid for pain management. Additional plan as per the hospital course. Dietary Evaluation Review Recommendations by RD: Protein Supplementation Comments: 1) Add renal restriction to cardiac diet 2) Initiate Nepro qd 3) Encourage optimal PO intake 4) Follow-up with cardiology, pulmonology, and nephrology 5) Continue to monitor I&O, labs, and skin integrity Expected Outcomes/Goals: 1) appetite and labs to improve 2) wound to improve 3) f/u in 3-5 days Plan discussed with: Patient WENDY COREAS MD Apr 21, 2025 13:45
[2025-04-22] VITALS (9 sets, daily range): BP systolic 103–124; BP diastolic 52–75; PULSE 70–102; RESP 14–18; TEMP 97.5–98.5; O2SAT 91–99
[2025-04-22 08:08] LABS: Hematocrit 24.2 % (36.0-46.0); Hemoglobin 7.7 g/dL (12.2-16.2); Mean Corpuscular Hemoglobin 32.0 pg (28.0-32.0); Mean Corpuscular Volume 100.3 fL (80.0-100.0)
[2025-04-22 09:00] LABS: Total Cells Counted 100.0 (100)
[2025-04-22 09:01] LABS: RBC Morphology Normal
--- NOTE | 2025-04-22 09:44 | DVHPNRES ---
Progress Note Date Seen: Apr 22, 2025 Resident Creating Document: CHANDNI BREWSTER RESIDENT Medical Necessity Reason Pt with a Central, PICC or Fol: Yes Subjective Review of Systems This is a 70-year-old female with past medical history of paraplegia since 2018 after surgery spine, CAD with no stent recent angiogram 3 months ago in [facility] reported normal, HTN, COPD on 2 L home oxygen, CHF with preserved ejection fraction, bed-bound since surgery 2017, bipolar disorder ESRD on hemodialysis Tuesday umbilical hernia, tonsillectomy, hemorrhoids, I and D on her decubitus ulcer sacral region present to ER with complaint of chest pain for 2 weeks which is getting worse before arriving to the hospital. Esterase pain was 9/10 intensity, sharp, intermitted, no aggravating or relieving factor. History of broken right hip 1 year ago and surgery done in [facility] but no prosthesis. Admission patient become hemodynamically unstable and started pressor. Off pressor on 04/07/2025. Past medical history: CAD, CHF, HTN, UT, COPD on 2 L home oxygen, bipolar disorder, ESRD, ventral umbilical hernia, hemorrhoid Past Surgical history: Tonsillectomy Family history cancer-mother with pacemaker and breast cancer, father with colon cancer Social history: X 0 smoker, quit 1 year ago, no ETOH use. Denies any illicit drug Family history lives with family, having caregivers 04/08/2025: Patient seen and evaluated in bedside. Patient complained left upper extremity pain associated with chest pain. No pain on rest but aggravated on movement. Labs for rheumatoid factor, uric acid level we will follow. Physical therapy during discharge. 04/09/2025: Patient seen and evaluated in bedside today. Patient left hand swelling is improving but chest pain on deep palpation. Colace and lactulose ordered for constipation, monitor for bowel movement. Patient currently on oxygen via nasal cannula. 04/10: Patient seen and evaluated in bedside today. Patient chest pain on palpation sternal area. Ordered for bone scan due to CT showed lytic bone lesion. Patient will be benefitted per physical therapy. 04/11: Patient seen and evaluated in bedside. Patient pain better in compared to yesterday switching morphine ER. Bone scan to rule out lytic lesion on CT chest ordered. Follow-up for bowel movement. Denies any fever, abdominal pain, headache. 04/12: Patient seen and evaluated in bedside today. Hemodialysis scheduled today. Patient chest pain is improving. Bone scan done yesterday and IR consulted biopsy right axillary lymph node. 04/15: Patient seen and evaluated in bedside today. Patient scheduled for dialysis and right axillary lymph node biopsy today. Patient having bowel movement yesterday and feeling better in compared to last few days. 04/16: Patient seen and evaluated in bedside. Order lidocaine patch for shoulder pain and eye drops for conjunctivitis. Sestamibi scan pending tomorrow. Surgery on board possible parathyroidectomy. 04/17: Seen and evaluated in bedside today. Bisacodyl suppository order today for constipation. Scheduled for parathyroid scan today. Surgery recommended endocrine evaluation. 04/18: Patient seen and evaluated in bedside today. Patient is still pain on and off, Dilaudid q.3h PRN. CT neck with contrast scheduled today to ruled out podiatry did not. 04/19: Seen and evaluated in bedside today. Hold blood pressure for now due to low BP. Nephrology consult appreciated. Surgery consult for possible parathyroidectomy due to CT neck shows parathyroid adenoma/hyperplasia. Patient having temperature 100.3, BCx ordered. 04/20: Patient seen and evaluated in bedside today. Patient vitals stable, no acute event overnight. Surgery recommend consult IR and biopsy thyroid nodule/parathyroid adenoma. Will follow IR recommendation. 04/21: Patient seen and evaluated in bedside today. Patient vitals stable, no acute event overnight. Surgery recommend consult IR and biopsy thyroid nodule/parathyroid adenoma. Will follow IR recommendation. 04/22: Patient seen and eval in bed side. IR called for possible biopsy but patient is high risk for any procedure, will defer biopsy. iPTH 4192.3>2930.5. Laxative order for pt. Objective vital signs Vital Sign Date Time Temp Pulse Resp B/P (MAP) Pulse Ox O2 Delivery O2 Flow Rate FiO2 04/22/25 09:23 97.8 83 14 108/64 (79) 99 97.8 04/21/25 20:28 2.0 04/21/25 20:02 Nasal Cannula* 28 Total Intake and Output 04/21/25 04/21/25 04/22/25 15:00 23:00 07:00 Intake Total 250 ml 400 ml Output Total 0 ml Balance 250 ml 400 ml medications Current Medications Medications Dose Ordered Sig/Margarito Route Start Time Stop Time Status Last Admin Dose Admin Aspirin 81 mg DAILY PO 04/05/25 17:40 04/21/25 09:22 81 MG Atorvastatin Calcium 40 mg HS PO 04/05/25 22:00 04/21/25 22:32 40 MG Acetaminophen 650 mg Q6HP PRN PO 04/05/25 17:30 Ondansetron HCl 4 mg Q4HP PRN IV 04/05/25 17:30 04/22/25 08:43 4 MG Multivit/Ca Carb/ B Cmplx/FA/Prenat 1 tab DAILY PO 04/06/25 10:00 04/21/25 09:21 1 TAB Quetiapine Fumarate 100 mg DAILY PO 04/06/25 10:00 04/21/25 09:22 100 MG Patient Own Medication 3 cap HS PO 04/05/25 22:00 Levothyroxine Sodium 200 mcg QAM@0600 PO 04/06/25 06:00 04/22/25 06:41 200 MCG Sevelamer HCl 1,600 mg TIDWM PO 04/06/25 08:00 04/22/25 08:09 1,600 MG Pantoprazole Sodium 40 mg DAILY@0600 PO 04/07/25 06:00 04/22/25 06:41 40 MG Albuterol 2.5 mg Q6HPRN PRN NEB 04/06/25 10:30 04/20/25 08:38 2.5 MG Carisoprodol 350 mg TID PO 04/06/25 12:00 04/22/25 06:41 350 MG Patient Own Medication 1 BID UT 04/10/25 22:00 04/21/25 10:00 1 Lactulose 30 ml BID PO 04/10/25 22:00 04/20/25 14:59 30 ML Epoetin Checo-epbx 4,000 unit MWF@2100 SC 04/12/25 21:00 Hold 04/15/25 21:39 4,000 UNIT Morphine Sulfate 15 mg Q8HR PO 04/15/25 22:00 04/22/25 06:41 15 MG Calcitriol 1 mcg DAILY PO 04/16/25 11:30 04/21/25 09:21 1 MCG Lidocaine 1 patch DAILY TOP 04/17/25 10:00 Hold 04/17/25 09:34 1 PATCH Bisacodyl 10 mg DAILYP PRN UT 04/17/25 09:45 04/22/25 09:29 10 MG Hydromorphone HCl 0.5 mg Q3HP PRN IV 04/18/25 15:45 04/22/25 08:29 0.5 MG Vancomycin HCl 0 ml @ 0 mls/hr UD IV 04/19/25 10:00 laboratory and microbiology Laboratory Tests 04/22/25 07:00 04/19/25 04:56 Test 04/19/25 04:56 Range/Units Serum Glucose 86 74-106 mg/dL Microbiology Date/Time Source Procedure Growth Status 04/19/25 10:20 Blood Blood Culture - Preliminary NO GROWTH AFTER 48 HOURS OF INCUBATION. Resulted 04/05/25 23:15 Nose MRSA Screen - Final Methicillin Resistant S.aureus Complete Problem List/Assessment/Plan Problem List/Assessment/Plan This is a 70-year-old female with past medical history of paraplegia since 2018 after surgery spine, CAD with no stent recent angiogram 3 months ago in [facility] reported normal, HTN, COPD on 2 L home oxygen, CHF with preserved ejection fraction, bed-bound since surgery 2018, bipolar disorder ESRD on hemodialysis Tuesday, umbilical hernia, tonsillectomy, hemorrhoids, I and D on her decubitus ulcer sacral region present to ER with complaint of chest pain for 2 weeks which is getting worse before arrived to the hospital. Chest pain was 9/10 intensity, sharp, intermitted, no aggravating or relieving factor. History of broken right hip 1 year ago and surgery done in [facility] but no prosthesis. Admission patient become hemodynamically unstable and started pressor. Off pressor on 04/07/2025. NEUROLOGY Paraplegia since 2018 after surgery in the spine History of bed-bound due to back surgery in 2018 for cyst removal. Off sedative or pressor Bed-bound since 2018 Plan: Physical therapy , fall precaution. CARDIOVASCULAR: Hypotensive shock requiring pressor support Cardiomegaly. NSTEMI likely type 2 secondary to demand ischemia History of CAD, patient denies and claims she does not have any stents in her heart. History of CHF, UT Ascending thoracic aorta is moderately dilated, measuring 3.8 cm. Dyslipidemia Trop 80s to 90s, on admission EKG showed no ST-T changes Septic Shock secondary to pneumonia Likely heart failure with preserved ejection fraction Echo on 04/06/2025 shows LVEF 65%, moderately dilated right ventricle and right atrium Cardiology: Elevated Troponin - trending up, likely demand ischemia in setting of CPR, septic shock. EKG-no ST and T-wave abnormalities. Plan Continue atorvastatin, aspirin, clopidogrel, nitroglycerin sublingual, nifedipine, hydralazine, carvedilol, lisinopril. Monitor BP, reason blood pressure medication as tolerated. PULMONARY: Acute hypoxic respiratory failure due to COPD exacerbation/pneumonia Bilateral pleural effusions Possible aspiration pneumonia Possible gram positive/Gram-negative pneumonia History of COPD with 2L home O2 History of tobacco use CT chest on 04/09/2025: Trace bilateral pleural effusions with extensive adjacent atelectasis of the posterior bilateral lower lobes. Plan: Discontinue Zosyn on 04/15/2025, Continue breathing treatment with ipratropium and albuterol. GASTROINTESTINAL: History of GERD History of ventral umbilical hernia. History of tonsillectomy. History of hemorrhoids. Sebaceous cyst abdominal wall Elevated ALP Chronic constipation likely due to bed-bound/immobilization US soft tissue abdomen: 2x1x1 cm subcutaneous cystic mass which could be represent a sebaceous cyst. Plan: :Continue Protonix , lactulose ,dolculax suppository.. GENITOURINARY: CKD on HD HD on Tuesday Nephrology consult appreciated Hyponatremia Hyperkalemia Hypocalcemia CT on 04/09/2025: Marked bilateral renal atrophy and cortical scarring / thinning. Nephrology consult appreciated Calcium level trending to normal level plan:Continue savelamer, hemodialysis, BMP alternate day. HEMATOLOGY: Questionable metastatic disease Anemia of chronic disease secondary to renal failure Leukopenia Thrombocytopenia CT chest on 04/09/2025: Multifocal lytic lesions throughout the visualized axial and appendicular skeleton involving the vertebral bodies of the thoracic spine, bilateral humeral heads and bilateral concerning for metastatic disease. Bone scan on 03/12/2025: Indeterminate diffuse increased activity in the calvarium, maxilla and mandible. This may be related to metastatic disease or metabolic process or Paget's disease. Few foci of increased activity in the right femur and right inferior pubic ramus. This may be related to metastatic disease or trauma. Ferritin 831.3, iron 83, TIBC is 162, % saturation 26.5 on admission Plan: Monitor cbc, monitor for signs symptoms of active bleeding. METABOLIC: Hypothyroidism Vitamin D deficiency Hyperparathyroidism- secondary PTH 4192.3 Thyroid USG-no significant abnormality. THS 8.06, free T4 0.49 Lactic acid 1.0 Hemoglobin A1c 4.5 Parathyroid skin on 04/17/2025: Mild retained uptake at both lower poles which may suggest parathyroid hyperplasia or bilateral adenomas. CT neck with contrast on 04/18/2025: Nodules along the inferior tips of both thyroid lobes correspond to the abnormalities noted on recent parathyroid study and likely represent either bilateral parathyroid adenomas or parathyroid hyperplasia. Innumerable lucencies with cortical destruction throughout the visualized skeleton suggesting either metastatic disease or myeloma. Appearances are typical for a metabolic disorder. Hyperdense nodule within the midline neck below the hyoid bone, possibly ectopic thyroid tissue. Targeted ultrasound +/- tissue sampling could be considered. Surgery consult appreciated . Plan:Continue levothyroxine,vitamin D3 weekly, Continue calcitriol . IR called for possible biopsy but patient is high risk for any procedure, will defer biopsy. iPTH 4192.3>2930.5. monitor iPTH LEVEL. INFECTIOUS DISEASE: History of aspiration pneumonia Possible aspiration pneumonia Positive MRSA screen, mupirocin SIRS (Leukopenia and tachycardia) Right axillary lymphadenopathy/mass Bilateral conjunctivitis Blood culture x2 negative CRP 9.70 ESR 50 plan: Discontinued Zosyn on 04/15/2025. Biopsy right axillary lymph node by IR unable to do because of very small size. conjunctivitis resolved. 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 History of chronic fracture of the right inferior pubic ramus. History of paraplegia. Gait instability Lytic bony lesion Likely Renal osteodystrophy Questionable metastatic disease Possible Paget's disease of the bone Chronic Left shoulder and chronic low-back pain CT chest on 04/09/2025: Multifocal lytic lesions involving the vertebral bodies, bilateral humeral heads concerning for metastatic disease. Bone scan on 04/13/2025: Indeterminate diffuse increased activity in the calvarium, maxilla and mandible, may be related to metastatic disease or metabolic process or Paget's disease. Patient bed-bound since then Uric acid level 4.1 Rheumatoid factor<10 Plan : continue pain management with morphine 15 mg ER every 8 hour and Dilaudid. Lidocaine patch. caution with low BP Possible parathyroidectomy, surgery on board. IR called for possible biopsy but patient is high risk for any procedure, will defer biopsy. Surgery on board. PSYCHIATRIC History of bipolar disorder Anxiety disorder Plan : continue alprazolam and quetiapine History of sacral ulcer History of I&D for decubitus ulcer. Sacral area healing scar tissue with no active discharge or signs symptoms of inflammation. DIET: Renal DVT prophylax: Lovenox GI prophylaxis: Protonix Bowel regimen: Lactulose, MiraLax and bisacodyl suppository as needed. Code status: Full code.-advanced care discussion 17 minutes spent. LINES/DRAINS/ACCESS: IV access: Left-sided tunneled catheter, right groin triple-lumen catheter. Drips: s/p Levophed, currently not on any drips DISPOSITION: Telemetry Patient's status discussed with patient, caregiver in bedside, nurse. Possible discharge tomorrow a.m., follow-up with higher level of care presumed parathyroidectomy. Spoke to daughter-MARYAM, currently she is on [place] and no one at home to take care her. Spoke to social sciences professor(Maylin) possible SNF placement. More than 23 minute spent with patient, caregiver, nurse. Case discuss with Dr. Gill Plan discussed with: Patient, Daughter (Maryam.), Other (Nurse, caregiver) My Orders My Orders Orders - CHANDNI BREWSTER Procedure Category Date Status Time Docusate Sodium PHA 04/22/25 Transmitted Capsule (Colace 22:00 Dietary Evaluation Review Recommendations by RD: Protein Supplementation Comments: 1) Add renal restriction to cardiac diet 2) Initiate Nepro qd 3) Encourage optimal PO intake 4) Follow-up with cardiology, pulmonology, and nephrology 5) Continue to monitor I&O, labs, and skin integrity Expected Outcomes/Goals: 1) appetite and labs to improve 2) wound to improve 3) f/u in 3-5 days Date of Service: Apr 22, 2025 Billing Provider: LUANNE GILL MD Common Visit Codes: [id number] INP/OBS CARE(HIGH) CHANDNI BREWSTER RESIDENT Apr 22, 2025 09:44 LUANNE GILL MD Apr 23, 2025 16:18
[2025-04-22] MEDS: SODIUM CHL 0.9% 1000 ML BAG XX ONE ×3 (11:00→12:22)
[2025-04-22 11:56] LABS: Hepatitis B Surface Antigen Negative (Negative)
[2025-04-22 12:13] LABS: Hepatitis C Antibody Negative (Negative)
[2025-04-22] MEDS: IOHEXOL 300 MG/ML 100ML BOTTLE IJ ONE (12:21)
[2025-04-22] MEDS ORDERED: VANCOMYCIN 750MG KIT 100 ML IV ONE (17:00)
--- NOTE | 2025-04-22 18:03 | DVHPN2 ---
Progress Note Date Seen: Apr 22, 2025 Medical Necessity Reason Pt with a Central, PICC or Fol: Yes Subjective Patient reports: No new complaints Review of Systems: Deferred Objective vital signs Vital Sign Date Time Temp Pulse Resp B/P (MAP) Pulse Ox O2 Delivery O2 Flow Rate FiO2 04/22/25 16:54 89 15 101/63 04/22/25 16:53 97.8 97 97.8 04/22/25 09:08 Nasal Cannula* 2 28 Total Intake and Output 04/21/25 04/21/25 04/22/25 15:00 23:00 07:00 Intake Total 250 ml 400 ml Output Total 0 ml Balance 250 ml 400 ml medications Current Medications Medications Dose Ordered Sig/Margarito Route Start Time Stop Time Status Last Admin Dose Admin Aspirin 81 mg DAILY PO 04/05/25 17:40 04/21/25 09:22 81 MG Atorvastatin Calcium 40 mg HS PO 04/05/25 22:00 04/21/25 22:32 40 MG Acetaminophen 650 mg Q6HP PRN PO 04/05/25 17:30 Ondansetron HCl 4 mg Q4HP PRN IV 04/05/25 17:30 04/22/25 16:44 4 MG Multivit/Ca Carb/ B Cmplx/FA/Prenat 1 tab DAILY PO 04/06/25 10:00 04/22/25 12:35 1 TAB Quetiapine Fumarate 100 mg DAILY PO 04/06/25 10:00 04/22/25 12:34 100 MG Patient Own Medication 3 cap HS PO 04/05/25 22:00 Levothyroxine Sodium 200 mcg QAM@0600 PO 04/06/25 06:00 04/22/25 06:41 200 MCG Sevelamer HCl 1,600 mg TIDWM PO 04/06/25 08:00 04/22/25 17:36 1,600 MG Pantoprazole Sodium 40 mg DAILY@0600 PO 04/07/25 06:00 04/22/25 06:41 40 MG Albuterol 2.5 mg Q6HPRN PRN NEB 04/06/25 10:30 04/20/25 08:38 2.5 MG Carisoprodol 350 mg TID PO 04/06/25 12:00 04/22/25 13:53 350 MG Patient Own Medication 1 BID AR 04/10/25 22:00 04/22/25 10:00 1 Lactulose 30 ml BID PO 04/10/25 22:00 04/20/25 14:59 30 ML Epoetin Checo-epbx 4,000 unit MWF@2100 SC 04/12/25 21:00 Hold 04/15/25 21:39 4,000 UNIT Morphine Sulfate 15 mg Q8HR PO 04/15/25 22:00 04/22/25 13:54 15 MG Calcitriol 1 mcg DAILY PO 04/16/25 11:30 04/22/25 12:35 1 MCG Lidocaine 1 patch DAILY TOP 04/17/25 10:00 Hold 04/17/25 09:34 1 PATCH Bisacodyl 10 mg DAILYP PRN AR 04/17/25 09:45 04/22/25 09:29 10 MG Hydromorphone HCl 0.5 mg Q3HP PRN IV 04/18/25 15:45 04/22/25 16:24 0.5 MG Docusate Sodium 200 mg HS PO 04/22/25 22:00 Examination: GENERAL:Abnormal, LUNGS:Abnormal, MSK:Abnormal, NEURO:Abnormal laboratory and microbiology Laboratory Tests 04/22/25 07:00 04/19/25 04:56 Test 04/19/25 04:56 Range/Units Serum Glucose 86 74-106 mg/dL Microbiology Date/Time Source Procedure Growth Status 04/19/25 10:20 Blood Blood Culture - Preliminary NO GROWTH AFTER 72 HOURS OF INCUBATION. Resulted 04/05/25 23:15 Nose MRSA Screen - Final Methicillin Resistant S.aureus Complete Problem List/Assessment/Plan Problem List/Assessment/Plan ESRD on dialysis Acute on chronic respiratory failure, O2 supply Acute on chronic diastolic Congestive heart failure NSTEMI Paraplegia Multifocal lytic lesions on CT scan concerning for metastatic disease Anemia of chronic kidney disease Severe hyperparathyroidism, PTH more than 4000 Renal osteodystrophy Fever Hypotension Recommendations Hemodialysis today Calcitriol 1 mcg p.o. q.day Parathyroid sestamibi nuclear medicine scan consistent with bilateral adenomas Surgery consult for subtotal parathyroidectomy--outpt referral needed We will continue to follow Plan discussed with: Patient, Other My Orders My Orders Orders - MALVIN SEAY MD Procedure Category Date Status Time Epoetin Checo-Epbx PHA 04/22/25 In Process (Retacrit) 21:00 Dietary Evaluation Review Recommendations by RD: Protein Supplementation Comments: 1) Add renal restriction to cardiac diet 2) Initiate Nepro qd 3) Encourage optimal PO intake 4) Follow-up with cardiology, pulmonology, and nephrology 5) Continue to monitor I&O, labs, and skin integrity Expected Outcomes/Goals: 1) appetite and labs to improve 2) wound to improve 3) f/u in 3-5 days MALVIN SEAY MD Apr 22, 2025 18:03
[2025-04-22] MEDS: EPOETIN ALFA-EPBX 10,000 UNIT/1ML VIAL SC ONE (21:13)
[2025-04-22] MEDS: DOCUSATE SOD 100 MG CAP PO SCH (21:16)
[2025-04-22] MEDS ORDERED: DOCUSATE SOD 100 MG CAP PO ONE (22:00)
--- NOTE | 2025-04-22 23:06 | DVHPN2 ---
Progress Note - Dictate Date Seen: Apr 22, 2025 Medical Necessity Reason Pt with a Central, PICC or Fol: Yes Subjective Patient was seen and evaluated in follow up. Patient is on 2 LPM NC. Patient is complaining of generalized pain. HGB 7.7, HCT 24.2, PTH intact 2930.5. Hepatitis panel is nonreactive. Telemetry reviewed. vital signs Vital Sign Date Time Temp Pulse Resp B/P (MAP) Pulse Ox O2 Delivery O2 Flow Rate FiO2 04/22/25 21:13 90 18 103/52 04/22/25 21:00 98.5 92 98.5 04/22/25 09:08 Nasal Cannula* 2 28 Total Intake and Output 04/21/25 04/21/25 04/22/25 15:00 23:00 07:00 Intake Total 250 ml 400 ml Output Total 0 ml Balance 250 ml 400 ml medications Current Medications Medications Dose Ordered Sig/Margarito Route Start Time Stop Time Status Last Admin Dose Admin Aspirin 81 mg DAILY PO 04/05/25 17:40 04/21/25 09:22 81 MG Atorvastatin Calcium 40 mg HS PO 04/05/25 22:00 04/22/25 21:13 40 MG Acetaminophen 650 mg Q6HP PRN PO 04/05/25 17:30 Ondansetron HCl 4 mg Q4HP PRN IV 04/05/25 17:30 04/22/25 21:12 4 MG Multivit/Ca Carb/ B Cmplx/FA/Prenat 1 tab DAILY PO 04/06/25 10:00 04/22/25 12:35 1 TAB Quetiapine Fumarate 100 mg DAILY PO 04/06/25 10:00 04/22/25 12:34 100 MG Patient Own Medication 3 cap HS PO 04/05/25 22:00 Levothyroxine Sodium 200 mcg QAM@0600 PO 04/06/25 06:00 04/22/25 06:41 200 MCG Sevelamer HCl 1,600 mg TIDWM PO 04/06/25 08:00 04/22/25 17:36 1,600 MG Pantoprazole Sodium 40 mg DAILY@0600 PO 04/07/25 06:00 04/22/25 06:41 40 MG Albuterol 2.5 mg Q6HPRN PRN NEB 04/06/25 10:30 04/20/25 08:38 2.5 MG Carisoprodol 350 mg TID PO 04/06/25 12:00 04/22/25 21:13 350 MG Patient Own Medication 1 BID IL 04/10/25 22:00 04/22/25 10:00 1 Lactulose 30 ml BID PO 04/10/25 22:00 04/20/25 14:59 30 ML Epoetin Checo-epbx 4,000 unit MWF@2100 SC 04/12/25 21:00 Hold 04/15/25 21:39 4,000 UNIT Morphine Sulfate 15 mg Q8HR PO 04/15/25 22:00 04/22/25 21:14 15 MG Calcitriol 1 mcg DAILY PO 04/16/25 11:30 04/22/25 12:35 1 MCG Lidocaine 1 patch DAILY TOP 04/17/25 10:00 Hold 04/17/25 09:34 1 PATCH Bisacodyl 10 mg DAILYP PRN IL 04/17/25 09:45 04/22/25 09:29 10 MG Hydromorphone HCl 0.5 mg Q3HP PRN IV 04/18/25 15:45 04/22/25 21:13 0.5 MG Docusate Sodium 200 mg HS PO 04/22/25 22:00 objective GENERAL: Alert and oriented x 3. No acute distress. Paraplegic. EYES: PERRL, EOMI. Anicteric. HENT: Moist mucous membranes. LUNGS: Clear to auscultation bilaterally. CARDIOVASCULAR: Regular rate and rhythm. ABDOMEN: Soft, nontender and nondistended. EXTREMITIES: No edema. NEUROLOGIC: No focal neurological deficits. SKIN: Wounds (Decubitus). laboratory and microbiology Laboratory Tests 04/22/25 07:00 04/19/25 04:56 Test 04/19/25 04:56 Range/Units Serum Glucose 86 74-106 mg/dL Problem List NSTEMI likely type 2. Anemia likely due to chronic renal failure. Cardiomegaly. Probable pneumonia. Elevated ALP. Hyponatremia. Hyperkalemia. Thrombocytopenia. Acute on chronic renal failure on dialysis (M/W/F). Acute hypoxic respiratory failure on supportive oxygen. 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 History of chronic fracture of the right inferior pubic ramus. History of paraplegia. History of CAD, patient denies and claims she does not have any stents in her heart. History of hypertension. History of COPD. History of CHF. History of bed-bound due to back surgery in 2018 for cyst removal. History of NE. History of bipolar disease. History of ventral umbilical hernia. History of tonsillectomy. History of hemorrhoids. History of I&D for decubitus ulcer. History of tobacco use. Assessment/Plan Continued all current supportive medical care. Aspirin. GI prophylactics. IV antibiotics as ordered. Tylenol and Dilaudid for pain management. Additional plan as per the hospital course. Dietary Evaluation Review Recommendations by RD: Protein Supplementation Comments: 1) Add renal restriction to cardiac diet 2) Initiate Nepro qd 3) Encourage optimal PO intake 4) Follow-up with cardiology, pulmonology, and nephrology 5) Continue to monitor I&O, labs, and skin integrity Expected Outcomes/Goals: 1) appetite and labs to improve 2) wound to improve 3) f/u in 3-5 days Plan discussed with: Patient WENDY COREAS MD Apr 22, 2025 23:06
[2025-04-23] VITALS (9 sets, daily range): BP systolic 86–140; BP diastolic 57–83; PULSE 74–96; RESP 16–18; TEMP 97–98.3; O2SAT 95–100
--- NOTE | 2025-04-23 10:46 | DVHDSRES ---
Discharge Summary Date of Admission Resident Creating Document: CHANDNI BREWSTER RESIDENT Apr 05, 2025 at 17:23 Date of Discharge: Apr 23, 2025 Labs/Diagnostic Data: Laboratory Results Test 04/22/25 07:00 04/20/25 04:33 04/19/25 04:56 04/18/25 06:34 White Blood Count 4.4 10^3/uL (4.4-10.8) Red Blood Count 2.41 10^6/uL (4.0-5.20) Hemoglobin 7.7 g/dL (12.2-16.2) Hematocrit 24.2 % (36.0-46.0) Mean Corpuscular Volume 100.3 fL (80.0-100.0) Mean Corpuscular Hemoglobin 32.0 pg (28.0-32.0) Mean Corpuscular Hemoglobin Concent 31.9 g/dL (32.0-36.0) Red Cell Distribution Width 18.1 % (11.8-14.3) Platelet Count 125 10^3/uL (140-450) Mean Platelet Volume 9.8 fL (6.9-10.8) Neutrophils (%) (Auto) % (37.0-80.0) Lymphocytes (%) (Auto) % (10.0-50.0) Monocytes (%) (Auto) % (0.0-12.0) Basophils (%) (Auto) % (0.0-2.0) Neutrophils # (Auto) 10 ^3/uL (1.6-8.6) Lymphocytes # (Auto) 10 ^3/uL (0.4-5.4) Monocytes # (Auto) 10 ^3/uL (0-1.3) Differential Total Cells Counted 100.0 (100) Neutrophils % (Manual) 43 (37.0-80.0) Band Neutrophils % (Manual) 0 Lymphocytes % (Manual) 36 (10.0-50.0) Monocytes % (Manual) 17 (0-12) Eosinophils % (Manual) 4 (0-7) Basophils % (Manual) 0 (0.0-2.0) Metamyelocytes % (manual) 0 Myelocytes % (Manual) 0 Promyelocytes % (Manual) 0 Blast Cells % (Manual) 0 Reactive Lymphocytes 0 Platelet Estimate Decreased Red Blood Cell Morphology Normal Creatinine 3.57 mg/dL (0.550-1.02) Glomerular Filtration Rate Calc 13 mL/min (>90) Random Vancomycin Level 14.3 ug/mL (5-10) Hepatitis A IgM Antibody Negative Hepatitis B Surface Antigen Negative (Negative) Hepatitis B Core IgM Antibody Negative (Negative) Hepatitis C Antibody Negative (Negative) Eosinophils (%) (Auto) 3.4 % (0.0-7.0) Eosinophils # (Auto) 0.2 10 ^3/uL (0-0.8) Basophils # (Auto) 0 10 ^3/uL (0-0.2) Nucleated Red Blood Cells 0.0 % Phosphorus Level 4.8 mg/dL (2.4-5.1) Parathyroid Hormone (Intact) 2930.5 pg/mL (18.4-80.1) Sodium Level 141 mmol/L (136-145) Potassium Level 3.8 mmol/L (3.5-5.1) Chloride Level 100 mmol/L (98-107) Carbon Dioxide Level 28 mmol/L (20-31) Anion Gap 13 (5-15) Blood Urea Nitrogen 8 mg/dL (9-23) BUN/Creatinine Ratio 4.1 (10.0-20.0) Serum Glucose 86 mg/dL (74-106) Calcium Level 9.3 mg/dL (8.7-10.4) Large Platelets Few Anisocytosis (manual) Slight Test 04/13/25 04:40 04/12/25 10:44 04/12/25 05:31 04/09/25 05:01 Smudge Cells 3 /100 WBC Ovalocytes Few POC Glucose 88 mg/dl (70-106) Iron Level 70 ug/dL (50-170) Total Iron Binding Capacity 149 ug/dL (250-425) Percent Iron Saturation 47.0 % (15-50) Ferritin 575.8 ng/mL (10-291) Giant Platelets Few Uric Acid 4.1 mg/dL (3.1-7.8) Magnesium Level 2.3 mg/dL (1.6-2.6) Vitamin D 25-Hydroxy 20.7 ng/mL (30.0-100) Rheumatoid Factor <10.0 IU/mL (<14.0) Test 04/07/25 01:40 04/06/25 18:12 04/06/25 11:58 04/06/25 03:00 Troponin I High Sensitivity 73 ng/L (</=34) Vitamin B12 Level 390 pg/mL (211-911) Folic Acid 5.70 ng/mL (>5.38) Erythrocyte Sedimentation Rate 50 mm/hr (0-20) C-Reactive Protein High Sensitivity 9.70 mg/dL (<1.0) Triglycerides Level 162 mg/dL (< 150) Cholesterol Level 150 mg/dL (< 200) LDL Cholesterol 41 mg/dL (< 100) HDL Cholesterol 58 mg/dL (40-59) Test 04/05/25 11:30 Prothrombin Time 11.4 sec (9.3-11.8) Prothrombin Time INR 1.08 (0.9-1.15) Activated Partial Thromboplast Time 33.6 SEC (24.5-34.5) Hemoglobin A1c 4.5 % A1C (<5.7) Lactic Acid Level 1.0 mmol/L (0.4-2.0) Total Bilirubin < 0.2 mg/dL (0.2-1.0) Aspartate Amino Transferase (AST) 12 U/L (13-40) Alanine Aminotransferase (ALT) < 9 U/L (7-40) Alkaline Phosphatase 387 U/L (46-116) Total Protein 6.9 g/dL (5.7-8.2) Albumin 3.4 g/dL (3.2-4.8) Thyroid Stimulating Hormone (TSH) 8.06 uIU/mL (0.55-4.78) Free Thyroxine (T4) Calculated 0.49 ng/dL (0.89-1.76) Other Laboratory Tests 04/22/25 07:00 04/19/25 04:56 Brief Hx & Hospital Course: History of present illness: This is a 70-year-old female with past medical history of paraplegia since 2018 after surgery spine, CAD with no stent recent angiogram 3 months ago in [facility] reported normal, HTN, COPD on 2 L home oxygen, CHF with preserved ejection fraction, bed-bound since surgery 2018, bipolar disorder ESRD on hemodialysis Tuesday umbilical hernia, tonsillectomy, hemorrhoids, I and D on her decubitus ulcer sacral region present to ER with complaint of chest pain for 2 weeks which is getting worse before arriving to the hospital. Esterase pain was 9/10 intensity, sharp, intermitted, no aggravating or relieving factor. History of broken right hip 1 year ago and surgery done in [facility] but no prosthesis. Admission patient become hemodynamically unstable and started pressor. Off pressor on 04/07/2025. Past medical history: CAD, CHF, HTN, ID, COPD on 2 L home oxygen, bipolar disorder, ESRD, ventral umbilical hernia, hemorrhoid Past Surgical history: Tonsillectomy Family history cancer-mother with pacemaker and breast cancer, father with colon cancer Social history: X 0 smoker, quit 1 year ago, no ETOH use. Denies any illicit drug Family history lives with family, having caregivers Hospital course: Patient admitted due to hypotensive shock requiring pressor support on admission and and off pressor on 03/30/2025. Initial tropes shows around 80s to 90s, EKG no ST-changes, Echo on 04/06/2025 shows LVEF 65%, moderately dilated right ventricle and right atrium. Cardiology consulted due to elevated troponin likely demand ischemia in setting of CRP, septic shock. CT chest on 04/09/2025: Trace bilateral pleural effusions with extensive adjacent atelectasis of the posterior bilateral lower lobes. Marked bilateral renal atrophy and cortical scarring / thinning. Multifocal lytic lesions throughout the visualized axial and appendicular skeleton involving the vertebral bodies of the thoracic spine, bilateral humeral heads and bilateral concerning for metastatic disease. Bone scan on 03/12/2025: Indeterminate diffuse increased activity in the calvarium, maxilla and mandible. This may be related to metastatic disease or metabolic process or Paget's disease. Few foci of increased activity in the right femur and right inferior pubic ramus. This may be related to metastatic disease or trauma. Ultrasound thyroid shows no significant abnormality. iPTH 4192.3>2930.5 and started calcitriol. Nephrology consulted due to secondary hyperparathyroidism secondary to ESRD. CT neck with contrast on 04/18/2025: Nodules along the inferior tips of both thyroid lobes correspond to the abnormalities noted on recent parathyroid study and likely represent either bilateral parathyroid adenomas or parathyroid hyperplasia. Innumerable lucencies with cortical destruction throughout the visualized skeleton suggesting either metastatic disease or myeloma. Appearances are typical for a metabolic disorder. Hyperdense nodule within the midline neck below the hyoid bone, possibly ectopic thyroid tissue. Surgery consulted and recommended continue medical management. Patient will be benefitted partial parathyroidectomy and need higher level of care because patient with multiple medical condition, is a candidate for Justin[facility] any kind of surgery who need low risk procedure. Patient did maximum benefit during inpatient treatment, treated both acute and chronic medical conditions. On 04/23/2025, patient denies any fever, chest pain, abdominal pain, headache, nausea vomiting, dysuria or any other acute distress. Patient is hemodynamically stable for discharge. The patient has received maximum benefits from inpatient treatment. Time was given to answer patient/ caregiver (Lamar) questions and concerns in Layman terms. patient verbalized understanding and agree with treatment and follow-up. Patient was recommended to return to the ED if she experiences any worsening symptoms such as, but not limited to current symptoms. Continue current home medication. Follow-up with discharge Clinic within 1 weeks on Tuesday morning and follow up with PCP, follow-up with higher level of care possible partial parathyroidectomy . Patient educated and advised to resume home medication. Discharge plan: Follow-up with primary care within 1 week after discharge Follow-up with higher level of care for possible parathyroidectomy Nephrology follow-up, HD on Tuesday Final diagnosis Hypotensive shock requiring pressor support Hypothyroidism Vitamin D deficiency Hyperparathyroidism- secondary Cardiomegaly. NSTEMI likely type 2 secondary to demand ischemia History of CAD, patient denies and claims she does not have any stents in her heart. History of CHF, ID Ascending thoracic aorta is moderately dilated, measuring 3.8 cm. Dyslipidemia Acute hypoxic respiratory failure due to COPD exacerbation/pneumonia Bilateral pleural effusions Possible aspiration pneumonia Possible gram positive/Gram-negative pneumonia Chronic constipation likely due to bed-bound/immobilization CKD on HD( Tuesday) Hyponatremia Hyperkalemia Hypocalcemia Paraplegia since 2018 after surgery in the spine History of bed-bound due to back surgery in 2018 for cyst removal. Questionable metastatic disease Anemia of chronic disease secondary to renal failure Leukopenia Thrombocytopenia Possible aspiration pneumonia Positive MRSA screen, mupirocin SIRS (Leukopenia and tachycardia) Right axillary lymphadenopathy/mass Bilateral conjunctivitis Gait instability Lytic bony lesion Likely Renal osteodystrophy Questionable metastatic disease Possible Paget's disease of the bone Chronic Left shoulder and chronic low-back pain History of bipolar disorder Anxiety disorder History of COPD with 2L home O2 History of tobacco use History of GERD History of ventral umbilical hernia. History of tonsillectomy. History of hemorrhoids. Sebaceous cyst abdominal wall History of sacral ulcer History of I&D for decubitus ulcer. More than 49 minute spent for discharge plan. Case discussed with Dr. Diggs, patient and nurse Condition at Discharge: Stable Final Diagnosis/Problems List . Discharge Disposition: Home with Health Services Discharge Instruct/Medications Diet: Regular Activity: No Restrictions, As Tolerated Follow Up/Referral: PCP Nephrology, HD on MWF Follow up [facility] for elective parathyroidectomy 1-2 weeks after discharge. Cardiology Scheduled Albuterol Sulfate (Albuterol Sulfate), 1 VIAL NEB Q4HPRN Alprazolam (Xanax), 0.5 TAB PO BID, (Reported) Ampicillin (Ampicillin), 1 CAP PO TID Ascorbic Acid (Vitamin C Tablet), 500 MG PO BID Atorvastatin Calcium (Lipitor), 1 TAB PO DAILY, (Reported) B-Complex W/ C & Folic Acid (Marisela-Tita Rx), 1 TAB PO DAILY, (Reported) Carisoprodol (Soma), 350 MG PO QID, (Reported) Carvedilol (Carvedilol), 1 TAB PO BID, (Reported) Cinacalcet Hydrochloride (Sensipar), 60 MG PO TID, (Reported) Clopidogrel Bisulfate (Clopidogrel), 75 MG PO DAILY, (Reported) Docusate Sodium (Docqlace), 100 MG PO TID, (Reported) Doxepin Hcl (Doxepin Hcl), 3 CAP PO QPM, (Reported) Fluconazole (Fluconazole), 1 TAB PO DAILY, (Reported) Hydralazine HCl (Hydralazine HCl), 1 TAB PO TID, (Reported) Isosorbide Mononitrate (Isosorbide Mononitrate Er), 1 TAB PO DAILY Levothyroxine Sodium (Levothyroxine Sodium), 200 MCG PO QAM, (Reported) Lisinopril (Lisinopril), 1 TAB PO DAILY, (Reported) Nifedipine (Nifedipine Er), 1 TAB PO DAILY Ondansetron Odt 4MG Tab (Zofran Po), 1 TAB PO DAILY, (Reported) Pantoprazole Sodium Sesquihydr (Protonix), 40 MG PO DAILY, (Reported) Phenylephrine HCl (Topical) (Preparation H), 0.25 % HI BID, (Reported) Quetiapine Fumerate (Seroquel), 1 TAB PO DAILY, (Reported) Sevelamer Carbonate (Renvela), 2 TAB PO TID, (Reported) Sulfamethoxazole W/Trimethopri (Bactrim Ds Tablet), 1 TAB PO BID Tenapanor HCl (Xphozah), 1 TAB PO BID, (Reported) Triamcinolone Acetonide (Kenalog), 1 APPLIC TOP BID, (Reported) Scheduled PRN Oxycodone W/ Acetaminophen (Apap/Oxycodone), 10-325 MG PO QIDPRN PRN for back pain, (Reported) Temazepam (Temazepam), 15 MG PO HS PRN for FOR INSOMNIA, (Reported) Discharge Statement: "Patient was advised to return to the ER or call 911 if any headaches, dizziness, shortness of breath, chest pain, abdominal pain, bleeding, fevers, or worsening of medical condition. Patient was counseled about treatment plan, medications, possible side effects, patientverbalized understanding. All questions were answered to the best of my ability. This discharge took greater then 30 minutes in planning, reviewing documentation, counseling the patient, and discussing with other team members." ASSESSMENT ASSESSMENT Assessment Hypotensive shock and secondary hyperparathyroidism. CHANDNI BREWSTER RESIDENT Apr 23, 2025 10:46
[2025-04-23] MEDS ORDERED: CALC0.5C PO (16:16)
[2025-04-23] MEDS ORDERED: MORP30CA31 PO (16:16)
--- NOTE | 2025-04-24 02:59 | DVHPN2 ---
Progress Note - Dictate Date Seen: Apr 23, 2025 Medical Necessity Reason Pt with a Central, PICC or Fol: Yes Subjective Patient was seen and evaluated in follow-up. Patient has no new complaints at this time. Patient denies any cardiac symptoms. Patient is cardiac stable for discharge. Telemetry reviewed. vital signs Vital Sign Date Time Temp Pulse Resp B/P (MAP) Pulse Ox O2 Delivery O2 Flow Rate FiO2 04/23/25 13:13 75 18 105/69 04/23/25 12:44 97.0 96 04/23/25 10:12 Nasal Cannula* 2 28 Total Intake and Output 04/22/25 04/22/25 04/23/25 15:00 23:00 07:00 Intake Total 180 ml 180 ml Balance 180 ml 180 ml medications Current Medications Medications Dose Ordered Sig/Margarito Route Start Time Stop Time Status Last Admin Dose Admin Aspirin 81 mg DAILY PO 04/05/25 17:40 04/23/25 09:05 81 MG Atorvastatin Calcium 40 mg HS PO 04/05/25 22:00 04/22/25 21:13 40 MG Acetaminophen 650 mg Q6HP PRN PO 04/05/25 17:30 Ondansetron HCl 4 mg Q4HP PRN IV 04/05/25 17:30 04/22/25 21:12 4 MG Multivit/Ca Carb/ B Cmplx/FA/Prenat 1 tab DAILY PO 04/06/25 10:00 04/23/25 09:05 1 TAB Quetiapine Fumarate 100 mg DAILY PO 04/06/25 10:00 04/23/25 09:04 100 MG Patient Own Medication 3 cap HS PO 04/05/25 22:00 Levothyroxine Sodium 200 mcg QAM@0600 PO 04/06/25 06:00 04/23/25 06:23 200 MCG Sevelamer HCl 1,600 mg TIDWM PO 04/06/25 08:00 04/23/25 12:20 1,600 MG Pantoprazole Sodium 40 mg DAILY@0600 PO 04/07/25 06:00 04/23/25 06:23 40 MG Albuterol 2.5 mg Q6HPRN PRN NEB 04/06/25 10:30 04/20/25 08:38 2.5 MG Carisoprodol 350 mg TID PO 04/06/25 12:00 04/23/25 06:23 350 MG Patient Own Medication 1 BID AR 04/10/25 22:00 04/23/25 09:05 1 Lactulose 30 ml BID PO 04/10/25 22:00 04/20/25 14:59 30 ML Epoetin Checo-epbx 4,000 unit MWF@2100 CT 04/12/25 21:00 Hold 04/15/25 21:39 4,000 UNIT Morphine Sulfate 15 mg Q8HR PO 04/15/25 22:00 04/23/25 06:23 15 MG Calcitriol 1 mcg DAILY PO 04/16/25 11:30 04/23/25 09:04 1 MCG Lidocaine 1 patch DAILY TOP 04/17/25 10:00 Hold 04/17/25 09:34 1 PATCH Bisacodyl 10 mg DAILYP PRN AR 04/17/25 09:45 04/22/25 09:29 10 MG Hydromorphone HCl 0.5 mg Q3HP PRN IV 04/18/25 15:45 04/23/25 13:13 0.5 MG Docusate Sodium 200 mg HS PO 04/22/25 22:00 objective GENERAL: Alert and oriented x 3. No acute distress. Paraplegic. EYES: PERRL, EOMI. Anicteric. HENT: Moist mucous membranes. LUNGS: Clear to auscultation bilaterally. CARDIOVASCULAR: Regular rate and rhythm. ABDOMEN: Soft, nontender and nondistended. EXTREMITIES: No edema. NEUROLOGIC: No focal neurological deficits. SKIN: Wounds (Decubitus). laboratory and microbiology Laboratory Tests 04/22/25 07:00 04/19/25 04:56 Test 04/19/25 04:56 Range/Units Serum Glucose 86 74-106 mg/dL Problem List NSTEMI likely type 2. Anemia likely due to chronic renal failure. Cardiomegaly. Probable pneumonia. Elevated ALP. Hyponatremia. Hyperkalemia. Thrombocytopenia. Acute on chronic renal failure on dialysis (M/W/F). Acute hypoxic respiratory failure on supportive oxygen. 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 History of chronic fracture of the right inferior pubic ramus. History of paraplegia. History of CAD, patient denies and claims she does not have any stents in her heart. History of hypertension. History of COPD. History of CHF. History of bed-bound due to back surgery in 2018 for cyst removal. History of NH. History of bipolar disease. History of ventral umbilical hernia. History of tonsillectomy. History of hemorrhoids. History of I&D for decubitus ulcer. History of tobacco use. Assessment/Plan Continued all current supportive medical care. Aspirin. GI prophylactics. IV antibiotics as ordered. Tylenol and Dilaudid for pain management. Additional plan as per the hospital course. Dietary Evaluation Review Recommendations by RD: Protein Supplementation Comments: 1) Add renal restriction to cardiac diet 2) Initiate Nepro qd 3) Encourage optimal PO intake 4) Follow-up with cardiology, pulmonology, and nephrology 5) Continue to monitor I&O, labs, and skin integrity Expected Outcomes/Goals: 1) appetite and labs to improve 2) wound to improve 3) f/u in 3-5 days Plan discussed with: Patient WENDY COREAS MD Apr 23, 2025 13:44
== END 2025-04-23 15:12 | disposition home health service (06) | DRG 177 ==
LOC: ER 10:55 → EDUNIT# 10:55 → EDBD 10:55 → OVERFLOW 17:23 → ICU WEST 23:15 → TELE-EAST 04-08 21:47 → TELE-CENTR 04-15 01:28
PROVIDERS: ADMIT Internal Medicine; ATTEND Internal Medicine
PROC: 5A1D70Z Performance of Urinary Filtration, Intermittent, Less than 6 Hours Per Day (ICD-10-PCS; principal; 2025-04-05)
PROC: 5A1D70Z Performance of Urinary Filtration, Intermittent, Less than 6 Hours Per Day (ICD-10-PCS; 2025-04-08)
PROC: 5A1D70Z Performance of Urinary Filtration, Intermittent, Less than 6 Hours Per Day (ICD-10-PCS; 2025-04-10)
PROC: 5A1D70Z Performance of Urinary Filtration, Intermittent, Less than 6 Hours Per Day (ICD-10-PCS; 2025-04-12)
PROC: 5A1D70Z Performance of Urinary Filtration, Intermittent, Less than 6 Hours Per Day (ICD-10-PCS; 2025-04-15)
PROC: 5A1D70Z Performance of Urinary Filtration, Intermittent, Less than 6 Hours Per Day (ICD-10-PCS; 2025-04-17)
PROC: 5A1D70Z Performance of Urinary Filtration, Intermittent, Less than 6 Hours Per Day (ICD-10-PCS; 2025-04-18)
PROC: 5A1D70Z Performance of Urinary Filtration, Intermittent, Less than 6 Hours Per Day (ICD-10-PCS; 2025-04-20)
PROC: 5A1D70Z Performance of Urinary Filtration, Intermittent, Less than 6 Hours Per Day (ICD-10-PCS; 2025-04-22)
DX: J69.0 Pneumonitis due to inhalation of food and vomit (principal); I21.A1 Myocardial infarction type 2; J96.21 Acute and chronic respiratory failure with hypoxia; R57.0 Cardiogenic shock; N18.6 End stage renal disease; I13.2 Hypertensive heart and chronic kidney disease with heart failure and with stage 5 chronic kidney disease, or end stage renal disease; E87.1 Hypo-osmolality and hyponatremia; N17.9 Acute kidney failure, unspecified; G82.20 Paraplegia, unspecified; N25.81 Secondary hyperparathyroidism of renal origin; F11.20 Opioid dependence, uncomplicated; J44.1 Chronic obstructive pulmonary disease with (acute) exacerbation; J98.11 Atelectasis; J44.0 Chronic obstructive pulmonary disease with (acute) lower respiratory infection; R65.10 Systemic inflammatory response syndrome (SIRS) of non-infectious origin without acute organ dysfunction; I50.32 Chronic diastolic (congestive) heart failure; D63.1 Anemia in chronic kidney disease; D69.6 Thrombocytopenia, unspecified; E04.1 Nontoxic single thyroid nodule; F31.9 Bipolar disorder, unspecified; J15.69 Pneumonia due to other Gram-negative bacteria; E87.5 Hyperkalemia; J15.9 Unspecified bacterial pneumonia; L29.9 Pruritus, unspecified; N25.0 Renal osteodystrophy; E55.9 Vitamin D deficiency, unspecified; E03.9 Hypothyroidism, unspecified; G89.29 Other chronic pain; D35.1 Benign neoplasm of parathyroid gland; E78.5 Hyperlipidemia, unspecified; F41.9 Anxiety disorder, unspecified; K21.9 Gastro-esophageal reflux disease without esophagitis; R59.0 Localized enlarged lymph nodes; I25.10 Atherosclerotic heart disease of native coronary artery without angina pectoris; H10.89 Other conjunctivitis; K64.9 Unspecified hemorrhoids; K59.00 Constipation, unspecified; L72.3 Sebaceous cyst; Z80.0 Family history of malignant neoplasm of digestive organs; Z80.3 Family history of malignant neoplasm of breast; Z82.49 Family history of ischemic heart disease and other diseases of the circulatory system; Z87.891 Personal history of nicotine dependence; Z99.2 Dependence on renal dialysis; Z99.3 Dependence on wheelchair; Z99.81 Dependence on supplemental oxygen; Z88.6 Allergy status to analgesic agent; Z79.899 Other long term (current) drug therapy; Z74.01 Bed confinement status
CPT/HCPCS: 36415; 70491; 71045; 71250; 76536; 76705; 76881; 78070; 78306; 80048; 80053; 80061; 80074; 80202; 82306; 82565; 82607; 82728; 82746; 82962; 83036; 83540; 83550; 83605; 83735; 83970; 84100; 84439; 84443; 84484; 84550; 85007; 85014; 85018; 85025; 85027; 85610; 85652; 85730; 86141; 86431; 87040; 87081; 87340; 90935; 93005; 93306; 94640; 96365; 96367; 97110; 97163; 97530; 99291; 99292; G0378; J1642; J1885; J2405; J2543

== ENCOUNTER 2025-06-05 12:27 | Inpatient (IN) | payer MEDICARE, MEDICAID ==
[2025-06-05] VITALS (24 sets, daily range): BP systolic 97–130; BP diastolic 44–67; PULSE 63–175; RESP 8–17; TEMP 98.2–98.5; O2SAT 85–99
[~2025-06-05] VITALS: Ht 154.9 cm; Wt 66.0 kg
[~2025-06-05 12:27] MED LIST changes: +CALC0.5C PO; +MORP30CA31 PO; +PHEN0.2512 PR
--- NOTE | 2025-06-05 12:41 | ED.PDOC ---
SOB-HPI HPI Comments This is a 70 year old female TARASA presenting to the ED with chief complaint of SOB. EMS reports patient was at dialysis today when she had started to complaint of SOB with associated generalized weakness and hypotension in the 80s systolically. EMS relays that the patient was given 2L of NS with no dialysis performed after before they arrived. EMS states patient now has swelling to all extremities and has been placed on 2L of O2 via NC. Patient denies any chest pain, fever, chills, headache, dizziness, or N/V. 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 History Family History Family History: Reviewed,noncontributory to illness, Unknown Social History Smoker: Non-Smoker Alcohol: Denies ETOH Use Drugs: Denies Drug Use Lives In: Home Constitutional: reports: weakness; denies: chills, diaphoresis, fatigue, fever, malaise, sweats, others EENTM: denies: blurred vision, double vision, ear bleeding, ear discharge, ear drainage, ear pain, ear ringing, eye pain, eye redness, hearing loss, mouth pain, mouth swelling, nasal discharge, nose bleeding, nose congestion, nose pain, photophobia, tearing, throat pain, throat swelling, voice changes, others Respiratory: reports: shortness of breath; denies: cough, hemoptysis, orthopnea, SOB at rest, SOB with excertion, stridor, wheezing, others Cardiovascular: reports: edema; denies: chest pain, dizzy spells, diaphoresis, Dyspnea on exertion, irregular heart beat, left arm pain, lightheadedness, palpitations, PND, syncope, others Gastrointestinal: denies: abdomen distended, abdominal pain, blood streaked bowels, constipated, diarrhea, dysphagia, difficulty swallowing, hematemesis, melena, nausea, poor appetite, poor fluid intake, rectal bleeding, rectal pain, vomiting, others Genitourinary: denies: abnormal vagina bleeding, burning, dyspareunia, dysuria, flank pain, frequency, hematuria, incontinence, pain, , vagina discharge, urgency, others Neurological: denies: dizziness, fainting, headache, left sided numbness, left sided weakness, numbness, paresthesia, pre-existing deficit, right sided numbness, right sided weakness, seizure, speech problems, tingling, tremors, weakness, others Musculoskeletal: denies: back pain, gout, joint pain, joint swelling, muscle pain, muscle stiffness, neck pain, others Integumetry: denies: bruises, change in color, change in hair/nails, dryness, laceration, lesions, lumps, rash, wounds, others Allergic/Immunocompromised: denies: Difficulty Healing, Frequent Infections, Hives, Itching, others Hematologic/Lymphatic: denies: anemia, blood clots, easy bleeding, easy bruising, swollen glands, others Endocrine: denies: excessive hunger, excessive sweating, excessive thirst, excessive urination, flushing, intolerance to cold, intolerance to heat, unexplained weight gain, unexplained weight loss, others Psychiatric: denies: anxiety, bipolar disorder, depression, hopeless, panic disorder, schizophrenia, sleepless, suicidal, others All Other Systems: Reviewed and Negative Physical Exam General Appearance: Moderate Distress, Normal HEENT: Normal ENT Inspection, Pharynx Normal, TMs Normal Neck: Full Range of Motion, Non-Tender, Normal, Normal Inspection Respiratory: Chest Non-Tender, No Accessory Muscle Use, Rhonchi Cardiovascular: No Edema, No JVD, No Murmur, No Gallop, Normal Peripheral Pulses, Regular Rate/Rhythm Breast Exam: Deferred Gastrointestinal: No Organomegaly, Non Tender, No Pulsatile Mass, Normal Bowel Sounds, Soft Genitalia: Deferred Pelvic: Deferred Rectal: Deferred Extremities: No calf tenderness, Normal capillary refill, No pedal edema Musculoskeletal : Apperance: Normal Neurologic: Alert, Motor Weakness (old) Cerebellar Function: NOT DONE Reflexes: NOT DONE Skin: Dry, Normal Color, Warm Peripheral Pulses: 3+ Radial (R), 3+ Radial (L) Lymphatic: No Adenopathy EKG EKG : Pulse Rate (adult): 107 Cardiac Rhythm: ST Was a procedure done? Was a procedure done?: No Differential Dx Differential Diagnosis: Anxiety, Asthma, Bronchitis, CHF, COPD X-Ray, Labs, Meds, VS Vital Signs Date Time Temp Pulse Resp B/P (MAP) Pulse Ox O2 Delivery O2 Flow Rate FiO2 06/05/25 14:31 98.2 106 12 130/67 99 55 98.2 06/05/25 14:06 100 130/67 Facial BiPAP Mask 55 06/05/25 12:41 107 06/05/25 12:36 107 06/05/25 12:33 98.2 112 18 119/68 93 98.2 Lab Test 06/05/25 13:44 06/05/25 13:09 06/05/25 12:47 Range/Units White Blood Count 7.1 4.4-10.8 10^3/uL Red Blood Count 3.24 L 4.0-5.20 10^6/uL Hemoglobin 10.5 L 12.2-16.2 g/dL Hematocrit 34.8 L 36.0-46.0 % Mean Corpuscular Volume 107.4 H 80.0-100.0 fL Mean Corpuscular Hemoglobin 32.3 H 28.0-32.0 pg Mean Corpuscular Hemoglobin Concent 30.1 L 32.0-36.0 g/dL Red Cell Distribution Width 18.3 H 11.8-14.3 % Platelet Count 201 140-450 10^3/uL Mean Platelet Volume 9.8 6.9-10.8 fL Neutrophils (%) (Auto) 73.2 37.0-80.0 % Lymphocytes (%) (Auto) 13.8 10.0-50.0 % Monocytes (%) (Auto) 12.0 0.0-12.0 % Eosinophils (%) (Auto) 0.5 0.0-7.0 % Basophils (%) (Auto) 0.5 0.0-2.0 % Neutrophils # (Auto) 5.2 1.6-8.6 10 ^3/uL Lymphocytes # (Auto) 1.0 0.4-5.4 10 ^3/uL Monocytes # (Auto) 0.9 0-1.3 10 ^3/uL Eosinophils # (Auto) 0 0-0.8 10 ^3/uL Basophils # (Auto) 0 0-0.2 10 ^3/uL Nucleated Red Blood Cells 0.2 % Sodium Level 139 136-145 mmol/L Potassium Level 3.7 3.5-5.1 mmol/L Chloride Level 103 98-107 mmol/L Carbon Dioxide Level 27 20-31 mmol/L Anion Gap 9 5-15 Blood Urea Nitrogen 18 9-23 mg/dL Creatinine 2.67 H 0.550-1.02 mg/dL Glomerular Filtration Rate Calc 19 >90 mL/min BUN/Creatinine Ratio 6.7 L 10.0-20.0 Serum Glucose 113 H 74-106 mg/dL Lactic Acid Level 0.5 0.4-2.0 mmol/L Calcium Level 7.6 L 8.7-10.4 mg/dL Troponin I High Sensitivity 76 *H </=34 ng/L B-Type Natriuretic Peptide 195.97 0-100 pg/mL Blood Gas Specimen Type Arterial Blood Gas Sample Site Left radial Blood Gas Patient Temperature 37.0 Arterial Blood Date Drawn [id number] Arterial Blood pH 7.082 *L 7.350-7.450 Arterial Blood Partial Pressure CO2 98.1 *H 32.0-45.0 mmHg Arterial Blood Partial Pressure O2 87.0 83.0-108.0 mmHg Arterial Blood HCO3 28.6 H 21.0-28.0 mmol/L Arterial Blood Oxygen Saturation 93.3 L 94.0-98.0 % Arterial Blood Base Excess -3.3 L -2.0-3.0 mmol/L Arterial Blood Oxyhemoglobin 91.4 L 94.0-98.0 % Arterial Blood Carboxyhemoglobin 1.7 H 0.5-1.5 % Arterial Blood Methemoglobin 0.3 0.0-1.5 % Arterial Blood Deoxyhemoglobin 6.6 H 0.0-5.0 % Burke Test Yes Blood Gas Total Hemoglobin 11.60 L 12.0-16.0 g/dL Blood Gas Liter Flow 10.00 Blood Gas Modality Mask - simple FiO2 % 60.0 Blood Gas Critical Value Read Back Yes Blood Gas Notified Whom Samra underwood. Blood Gas Notified Time [id number] Blood Gas Notified By Hanane issa POC Glucose 98 70-106 mg/dl Patient alert. Has fluid overload. She was given 2 L of fluids prior to dialysis. Placed on oxygen. Had to place her on BiPAP to control the CO2. ABG does show respiratory acidosis. She does not want to be intubated. Was given Lasix. Cardiac marker elevated from demand ischemia. Possible sepsis. Placed a central line. Explained to the patient. Continue monitoring. X-Ray, Labs, Meds, VS Comment [address] [address] Ph: [phone] DIAGNOSTIC IMAGING Diagnostic Imaging Report : [id number] Signed PATIENT: RACQUEL SAEZ ACCT: [id number] UNIT: [id number] : 1955 LOC: ER ROOM / BED: / AGE / SEX: 70 / F ADM STATUS: REG ER SERVICE 1237 ORDERING PHYSICIAN: LINDA TOBAR MD PROCEDURE(s): CXRP - CHEST PORTABLE REASON: sob ORDER NUMBER(s): [id number], ACCESSION NUMBER(s): [id number] EXAM: XY CHEST PORTABLE Indication: sob Technique: Single frontal view of the chest was obtained Comparison: XY CHEST XRAY 1 VIEW on DOS: 04/20/25, CT CHEST WITHOUT CONTRAST on DOS: 04/09/25, XY CHEST PORTABLE on DOS: 04/09/25, XY CHEST PORTABLE on DOS: 04/07/25, XY CHEST PORTABLE on DOS: 04/05/25 FINDINGS: Lines and Tubes: Left central venous catheter tip projects over cavoatrial junction. Lungs: Small bilateral pleural effusion and multifocal consolidative opacities. Cardiomediastinal contours: Cardiomegaly. Atherosclerotic vascular calcifications of the thoracic aorta are noted. Bones: No acute osseous abnormality. IMPRESSION: Cardiomegaly.Small bilateral pleural effusion and multifocal consolidative opacities. ATED BY: KALYAN HASSAN MD DICTATED DATE/TIME: 06/05/25 1304 SIGNED BY: KALYAN HASSAN MD SIGNED DATE/TIME: 06/05/25 1304 CC: Time of 1ST Reevaluation: 13:38 Reevaluation 1ST: Unchanged Patient Education/Counseling: Diagnosis, Treatment Family Education/Counseling: No Family Present SEPSIS Sepsis Screen Physician Orders Chest Portable (06/05/25 12:37) Urinalysis (06/05/25 12:32) Blood Culture (06/05/25 12:32) Abg W/ Co-Ox (06/05/25 13:08) Midazolam Drip 100 Mg/100ml Ns (Versed D (06/05/25 13:45) Rass Sedation Scale Q1HR (06/05/25 13:38) BIPAP (06/05/25 13:56) Abg W/ Co-Ox (06/05/25 15:00) Code Status (06/05/25 14:05) Vital Signs Date Time Temp Pulse Resp B/P (MAP) Pulse Ox O2 Delivery O2 Flow Rate FiO2 06/05/25 14:31 98.2 106 12 130/67 99 55 98.2 06/05/25 14:06 100 130/67 Facial BiPAP Mask 55 06/05/25 12:41 107 06/05/25 12:36 107 06/05/25 12:33 98.2 112 18 119/68 93 98.2 Laboratory Tests Test 06/05/25 13:44 Lactic Acid Level 0.5 mmol/L (0.4-2.0) White Blood Count 7.1 10^3/uL (4.4-10.8) Departure 1 Departure Time of Disposition: 14:49 Impression: Primary Impression: Acute respiratory failure Qualified Codes: J96.02 - Acute respiratory failure with hypercapnia Additional Impressions: ESRD needing dialysis Sepsis, unspecified organism Qualified Codes: A41.9 - Sepsis, unspecified organism Anemia of chronic disease Congestive heart failure Qualified Codes: I50.43 - Acute on chronic combined systolic (congestive) and diastolic (congestive) heart failure Demand ischemia Disposition: ADMITTED INPATIENT Admit to: Med Surg Condition: Guarded Critical Care Note Critical Care Time?: Yes (90 min-critical care time only) Stability Stability form required: No Heart Score Heart Score: Heart Score Response (Comments) Value History Moderate Suspicious 1 EKG Repolarization Disturb 1 Age >65 2 Risk Factors >3 or Hx ASHD 2 Troponin 1-2 x's Normal limit 1 Total 7 I personally scribed for LINDA TOBAR MD ([email or web address]) on 06/05/25 at 12:41. Electronically submitted by Titus Mitchell ([email or web address]). I personally scribed for LINDA TOBAR MD ([email or web address]) on 06/05/25 at 14:16. Electronically submitted by Titus Mitchell ([email or web address]). LINDA TOBAR MD Jun 05, 2025 12:41
--- NOTE | 2025-06-05 13:06 | DVH ---
EXAM: XY CHEST PORTABLE Indication: sob Technique: Single frontal view of the chest was obtained Comparison: XY CHEST XRAY 1 VIEW on DOS: 04/20/25, CT CHEST WITHOUT CONTRAST on DOS: 04/09/25, XY CHEST PORTABLE on DOS: 04/09/25, XY CHEST PORTABLE on DOS: 04/07/25, XY CHEST PORTABLE on DOS: 04/05/25 FINDINGS: Lines and Tubes: Left central venous catheter tip projects over cavoatrial junction. Lungs: Small bilateral pleural effusion and multifocal consolidative opacities. Cardiomediastinal contours: Cardiomegaly. Atherosclerotic vascular calcifications of the thoracic aorta are noted. Bones: No acute osseous abnormality. IMPRESSION: Cardiomegaly.Small bilateral pleural effusion and multifocal consolidative opacities.
[2025-06-05 13:21] LABS: Base Excess -3.3 mmol/L (-2.0-3.0)
--- NOTE | 2025-06-05 13:33 | ECG ---
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
[2025-06-05] MEDS: ROCURONIUM 10MG/ML 10ML VIAL IV ONE ×2 (13:44→13:45)
[2025-06-05] MEDS: ETOMIDATE (2MG/ML) 20ML VIAL IV ONE ×2 (13:44→13:45)
[2025-06-05] MEDS: MIDAZOLAM DRIP 100 mg/100mL NS 100 ML IV SCH (13:45)
[2025-06-05] MEDS: MIDAZOLAM DRIP 100 mg/100mL NS 100 ML IV ONE (13:47)
[2025-06-05] MEDS: AZITHROMYCIN 500MG/250ML 250 ML IV ONE (13:49)
[2025-06-05 14:08] LABS: Chloride 103 mmol/L (98-107); Potassium 3.7 mmol/L (3.5-5.1); Sodium 139 mmol/L (136-145)
[2025-06-05 14:09] LABS: Anion Gap 9 (5-15); Calcium 7.6 mg/dL (8.7-10.4); Carbon Dioxide 27 mmol/L (20-31)
[2025-06-05 14:14] LABS: BUN/Creatinine Ratio 6.7 (10.0-20.0); Blood Urea Nitrogen 18 mg/dL (9-23); Hematocrit 34.8 % (36.0-46.0); Hemoglobin 10.5 g/dL (12.2-16.2); Mean Corpuscular Hemoglobin 32.3 pg (28.0-32.0); Mean Corpuscular Volume 107.4 fL (80.0-100.0); Nucleated Red Blood Cells % 0.2 %
[2025-06-05 14:15] LABS: Glucose 113 mg/dL (74-106)
[2025-06-05] MEDS: PIPERACILLIN-TAZOB 3.375GM 100 ML IV ONE (14:30)
[2025-06-05 15:15] LABS: Base Excess -4.4 mmol/L (-2.0-3.0)
[2025-06-05] MEDS: NOREPINEPHRINE 8 MG/250ML KIT 250 ML IV ONE (15:29)
[2025-06-05] MEDS: NOREPINEPHRINE 8 MG/250ML KIT 250 ML IV SCH (15:30)
--- NOTE | 2025-06-05 15:30 | DVHNC2 ---
Procedure - Indication: Hypotension/Sepsis/Need for Pressors Vascular Access Central Line Location: Left Femoral Vein Procedure Power Nut Runner Operator: Dr. Aquino, resident Attending Physician: Dr. Shukla Present During Procedure?: Yes Consent: The procedure was performed emergently and the permission was implied because of the emergent nature. Doctors Gayla and Donavon confirmed the emergent nature of the procedure and signed consent form prior to the procedure. PROCEDURE SUMMARY: The [facility] Central Line Insertion Practices form was completed by _ during and immediately following the procedure. A time out was performed. My hands were washed immediately prior to the procedure. I wore a surgical cap, mask with protective eyewear, full gown and sterile gloves throughout the procedure. The patient was placed in Trendelenburg position. The Left groin was prepped using chlorhexidine scrub and draped in sterile fashion using a three quarter sheet drape and sterile towels. Skin preparation was allowed to dry prior to skin puncture. Anatomic landmarks were identified. Anesthesia was achieved over the vein using 1% lidocaine. Using real-time ultrasound, with sterile probe cover and sterile gel, the introducer needle was inserted into the vein under direct ultrasound visualization. Venous blood was withdrawn. The syringe was removed and a guidewire was advanced into the introducer needle. The guidewire was visualized in the appropriate vein by ultrasound. A small incision was made at the skin surface with a scalpel and the introducer needle was exchanged for a dilator over the guidewire. After appropriate dilation was obtained, the dilator was exchanged over the wire for a central venous catheter. The wire was removed and the catheter was sutured in place. A biopatch was placed at the insertion site. A sterile op-site was placed over the catheter and biopatch. The patient tolerated the procedure without any hemodynamic compromise. At time of procedure completion, all ports aspirated and flushed properly. LULU AQUINO RESIDENT Jun 05, 2025 15:30
--- NOTE | 2025-06-05 15:36 | DVHHP2 ---
History of Present Illness Reason for Visit: SOB History of Present Illness Patricia Arreguin is a 70-year-old female with past medical history of paraplegia, CAD, hypertension, COPD, CHF, bed-bound due to back surgery in 2018, [place], bipolar disorder, ESRD on HD (M/W/F) with Dr. Thornton, ventral umbilical hernia, tonsillectomy, hemorrhoids, and I & D on her decubitus ulcer who presents to the ED with shortness of breath while at her dialysis center but had not received dialysis just yet. Per reports patient was hypotensive with systolic blood pressure in the 80s, EMS gave 2 L of NS and place patient on 2 L nasal cannula of oxygen. Patient uses oxygen continuously 2 L via nasal cannula at home and has not walke d since 2018. Upon evaluation patient is arousable but lethargic, on the BiPAP and not able to answer questions. Reported to nurse that she is okay with BiPAP and vasopressors, but not okay with intubation or CPR. Her parakeet raiser is Dr. Bola Will and janitorial manager is Dr. Thornton. Cardiovascular: CAD, CHF, HTN, [place] Pulmonary: COPD Psych: Bipolar Renal/: Chronic renal failure Past Medical History Bed-bound due to back surgery for cyst removal in 2018 Paraplegia Ventral umbilical hernia Hemorrhoids Past Surgical History: Other (I&D of decubitus ulcer and back surgery), Tonsillectomy Family History: Cancer, Other (Mom with a pacemaker and breast cancer. Dad with colon cancer.) Smoke: Quit ALCOHOL: none Drugs: None Lives: with Family Domestic Violence: Neg Review of Systems Respiratory: Shortness of breath Allergies: Coded Allergies: Baclofen (Verified Allergy, Unknown, 11/07/23) Medications Current Medications Medications Dose Ordered Sig/Margarito Route Start Time Stop Time Status Last Admin Dose Admin Midazolam HCl 100 ml @ 1 mls/hr Q24H IV 06/05/25 13:45 Exam Vital Signs Vital Signs Date Time Temp Pulse Resp B/P (MAP) Pulse Ox O2 Delivery O2 Flow Rate FiO2 06/05/25 14:31 98.2 106 12 130/67 99 55 98.2 06/05/25 14:06 Facial BiPAP Mask General Appearance: Other (Arousable but lethargic) Cardiovascular: Normal S1, Normal S2 Abdominal: Soft Extremities: No clubbing, No cyanosis Labs/Xrays Labs Test 06/05/25 15:10 06/05/25 13:44 06/05/25 13:09 06/05/25 12:47 Range/Units Blood Gas Specimen Type Arterial Blood Gas Sample Site Left radial Blood Gas Patient Temperature 37.0 Arterial Blood Date Drawn [id number] Arterial Blood pH 7.112 *L 7.350-7.450 Arterial Blood Partial Pressure CO2 84.3 *H 32.0-45.0 mmHg Arterial Blood Partial Pressure O2 92.8 83.0-108.0 mmHg Arterial Blood HCO3 26.3 21.0-28.0 mmol/L Arterial Blood Oxygen Saturation 95.0 94.0-98.0 % Arterial Blood Base Excess -4.4 L -2.0-3.0 mmol/L Arterial Blood Oxyhemoglobin 93.2 L 94.0-98.0 % Arterial Blood Carboxyhemoglobin 1.5 0.5-1.5 % Arterial Blood Methemoglobin 0.4 0.0-1.5 % Arterial Blood Deoxyhemoglobin 4.9 0.0-5.0 % Burke Test Yes Blood Gas Total Hemoglobin 10.90 L 12.0-16.0 g/dL Blood Gas Set Respiration Rate 12.0 Blood Gas Modality Mask - bipap FiO2 % 55.0 Blood Gas EPAP 5 Blood Gas IPAP 15 Blood Gas Critical Value Read Back Yes Blood Gas Notified Whom Gayla todd Blood Gas Notified Time [id number] Blood Gas Notified By Hanane issa White Blood Count 7.1 4.4-10.8 10^3/uL Red Blood Count 3.24 L 4.0-5.20 10^6/uL Hemoglobin 10.5 L 12.2-16.2 g/dL Hematocrit 34.8 L 36.0-46.0 % Mean Corpuscular Volume 107.4 H 80.0-100.0 fL Mean Corpuscular Hemoglobin 32.3 H 28.0-32.0 pg Mean Corpuscular Hemoglobin Concent 30.1 L 32.0-36.0 g/dL Red Cell Distribution Width 18.3 H 11.8-14.3 % Platelet Count 201 140-450 10^3/uL Mean Platelet Volume 9.8 6.9-10.8 fL Neutrophils (%) (Auto) 73.2 37.0-80.0 % Lymphocytes (%) (Auto) 13.8 10.0-50.0 % Monocytes (%) (Auto) 12.0 0.0-12.0 % Eosinophils (%) (Auto) 0.5 0.0-7.0 % Basophils (%) (Auto) 0.5 0.0-2.0 % Neutrophils # (Auto) 5.2 1.6-8.6 10 ^3/uL Lymphocytes # (Auto) 1.0 0.4-5.4 10 ^3/uL Monocytes # (Auto) 0.9 0-1.3 10 ^3/uL Eosinophils # (Auto) 0 0-0.8 10 ^3/uL Basophils # (Auto) 0 0-0.2 10 ^3/uL Nucleated Red Blood Cells 0.2 % Sodium Level 139 136-145 mmol/L Potassium Level 3.7 3.5-5.1 mmol/L Chloride Level 103 98-107 mmol/L Carbon Dioxide Level 27 20-31 mmol/L Anion Gap 9 5-15 Blood Urea Nitrogen 18 9-23 mg/dL Creatinine 2.67 H 0.550-1.02 mg/dL Glomerular Filtration Rate Calc 19 >90 mL/min BUN/Creatinine Ratio 6.7 L 10.0-20.0 Serum Glucose 113 H 74-106 mg/dL Lactic Acid Level 0.5 0.4-2.0 mmol/L Calcium Level 7.6 L 8.7-10.4 mg/dL Troponin I High Sensitivity 76 *H </=34 ng/L B-Type Natriuretic Peptide 195.97 0-100 pg/mL Blood Gas Liter Flow 10.00 POC Glucose 98 70-106 mg/dl EXAM: XY CHEST PORTABLE Indication: sob Technique: Single frontal view of the chest was obtained Comparison: XY CHEST XRAY 1 VIEW on DOS: 04/20/25, CT CHEST WITHOUT CONTRAST on DOS: 04/09/25, XY CHEST PORTABLE on DOS: 04/09/25, XY CHEST PORTABLE on DOS: 04/07/25, XY CHEST PORTABLE on DOS: 04/05/25 FINDINGS: Lines and Tubes: Left central venous catheter tip projects over cavoatrial junction. Lungs: Small bilateral pleural effusion and multifocal consolidative opacities. Cardiomediastinal contours: Cardiomegaly. Atherosclerotic vascular calcifications of the thoracic aorta are noted. Bones: No acute osseous abnormality. IMPRESSION: Cardiomegaly.Small bilateral pleural effusion and multifocal consolidative opacities. SEPSIS Sepsis Screen Date sepsis recognized/suspect: Jun 05, 2025 Time Sepsis recognized/suspect: 1233 Recent Procedure: No On Antibiotic Therapy: No Respiratory Rate >20: No Heart Rate >90: Yes Temp<36 C (96.8 F) or >38.3 C: No SBP <90 or MAP <65 mmHG: No New Acute Mental Status Change: No Is the patient on CPAP, BIPAP,: No Physician Orders Chest Portable (06/05/25 12:37) Urinalysis (06/05/25 12:32) Blood Culture (06/05/25 12:32) Abg W/ Co-Ox (06/05/25 13:08) Midazolam Drip 100 Mg/100ml Ns (Versed D (06/05/25 13:45) Rass Sedation Scale Q1HR (06/05/25 13:38) BIPAP (06/05/25 13:56) Abg W/ Co-Ox (06/05/25 15:00) Code Status (06/05/25 14:05) Vital Signs Date Time Temp Pulse Resp B/P (MAP) Pulse Ox O2 Delivery O2 Flow Rate FiO2 06/05/25 14:31 98.2 106 12 130/67 99 55 98.2 06/05/25 14:06 100 130/67 Facial BiPAP Mask 55 06/05/25 12:41 107 06/05/25 12:36 107 06/05/25 12:33 98.2 112 18 119/68 93 98.2 Laboratory Tests Test 06/05/25 13:44 Lactic Acid Level 0.5 mmol/L (0.4-2.0) White Blood Count 7.1 10^3/uL (4.4-10.8) Assessment/Plan Assessment/Plan Assessment Fluid overload Acute hypoxic respiratory failure and supplemental oxygen Acute encephalopathy likely due to hypercarbia Cardiomegaly Small bilateral pleural effusion and multifocal consolidative opacities Acute on chronic CHF exacerbation Macrocytic anemia SIRS versus sepsis History of COPD History of ESRD on HD (M/W/F) History of hypertension History of [place] History thyroid disease History of tonsillectomy History of paraplegia 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 History of chronic fracture of the right inferior pubic ramus History of CAD History of bed-bound due to back surgery in 2018 for cyst removal History of bipolar disease History of ventral umbilical hernia History of hemorrhoids History of I&D for decubitus ulcer History of tobacco use Plan Admit to ICU CT head Vasopressors to keep maps greater than 65 BiPAP Duo nebs Antiemetics Pain management Strict I&Os Daily weights Supplemental O2-wean as tolerated Diurese 2 L NS given by EMS IV antibiotics-Zosyn + azithromycin ABGs Lactic Blood cultures UA Chest x-rays BNP Trop UDS Echo on 04/06/25 MODERATE DEGREE LVH AND MODERATE DEGREE LV DIASTOLIC DYSFUNCTION, LV EF IS 65%, MODERATELY DILATED RV AND RA, POSTERIOR MV HEAVILY CALCIFIED, MODERATELY DILATED LA NPO -patient lethargic and on BiPAP Home medications reconciled DVT prophylaxis-Lovenox PUD prophylaxis-PPIs Discussed plan of care with nurse Nephro consult Pulmonary consult Consider [place] [id number] Preventive counseling healthy eating habits, physical activity, and regular checkups Patient is a modified code-DNI, no CPR, okay for BiPAP, okay for vasopressors Plan discussed with: Other Date of Service: Jun 05, 2025 Billing Provider: ENEIDA DOBBS Common Visit Codes: 53661-[id number] INP/OBS CARE (HIGH) Secondary Visit Codes: 23629-[id number] COUNSELING IND ENEIDA DOBBS Jun 05, 2025 15:36
[2025-06-05] MEDS ORDERED: ONDANSETRON HCL 4 MG/2 ML VIAL IV PRN (16:30)
[2025-06-05] MEDS ORDERED: NITROGLYCERIN 0.4 MG SL TAB SL PRN (16:30)
[2025-06-05 16:51] LABS: Base Excess -6.1 mmol/L (-2.0-3.0)
[2025-06-05] MEDS ORDERED: MORPHINE SULFATE 4 MG/ML SYR/VIAL IV PRN (17:00)
[2025-06-05] MEDS ORDERED: PIPERACILLIN-TAZOB 3.375GM 100 ML IV ONE (17:00)
[2025-06-05] MEDS: ALBUTEROL SULF 2.5 MG/0.5ML(0.5%) NEB SOLN NEB SCH (18:17)
[2025-06-05] MEDS: IPRATROPIUM BROM 0.5 MG/2.5ML INH SOL NEB SCH (18:17)
[2025-06-05 18:35] LABS: Base Excess -3.3 mmol/L (-2.0-3.0)
[2025-06-05] MEDS: FUROSEMIDE 40 MG/4 ML VIAL IV SCH (18:43)
--- NOTE | 2025-06-05 21:04 | DVH ---
EXAM: CT HEAD WITHOUT CONTRAST INDICATION: ams TECHNIQUE: CT of the head without intravenous contrast. Radiation Dose Information: CT Dose: CTDI volume is 60.53 mGy. Dose-length product is 1070.03 mGy*cm The dose indicators for CT are the volume Computed Tomography (CT) Dose Index (CTDIvol) and the Dose Length Product (DLP), and are measured in units of mGy and mGy-cm, respectively. These indicators are not patient dose, but values generated from the CT scanner acquisition factors. The report includes radiation exposure data for exposures received during this examination. COMPARISON: CT HEAD WITHOUT CONTRAST on DOS: 05/29/23, HEAD WITHOUT CONTRAST on DOS: 11/16/21 FINDINGS: There is no evidence of acute intracranial hemorrhage, extra-axial collection, mass effect, midline shift, herniation or hydrocephalus. The ventricles, sulci and cisterns are age appropriate. The rodriguez-white differentiation is intact. Patchy periventricular and subcortical white matter hypoattenuation is nonspecific but may be related to small vessel ischemic disease. The visualized paranasal sinuses and mastoid air cells are clear. Bones are diffusely sclerotic. IMPRESSION: No acute intracranial abnormality.
[2025-06-05] MEDS: PIPERACILLIN-TAZOB 3.375GM 100 ML IV SCH (21:54)
[2025-06-06] VITALS (71 sets, daily range): BP systolic 91–142; BP diastolic 41–77; PULSE 75–111; RESP 9–30; TEMP 97.8–100.7; O2SAT 83–100
[2025-06-06 05:09] LABS: Anion Gap 11 (5-15); Carbon Dioxide 24 mmol/L (20-31); Chloride 101 mmol/L (98-107); Glucose 96 mg/dL (74-106); Total Protein 6.6 g/dL (5.7-8.2)
[2025-06-06 05:16] LABS: BUN/Creatinine Ratio 6.9 (10.0-20.0)
[2025-06-06 05:17] LABS: Alanine Aminotransferase 10 U/L (7-40); Albumin 2.8 g/dL (3.2-4.8); Alkaline Phosphatase 376 U/L (46-116); Bilirubin, Total < 0.2 mg/dL (0.2-1.0); Blood Urea Nitrogen 20 mg/dL (9-23); Calcium 8.0 mg/dL (8.7-10.4); Potassium 5.0 mmol/L (3.5-5.1); Sodium 136 mmol/L (136-145)
[2025-06-06 06:18] LABS: Hematocrit 34.0 % (36.0-46.0); Hemoglobin 10.5 g/dL (12.2-16.2); Mean Corpuscular Hemoglobin 32.9 pg (28.0-32.0); Mean Corpuscular Volume 106.2 fL (80.0-100.0); Nucleated Red Blood Cells % 0.0 %
[2025-06-06 06:39] LABS: Base Excess -6.6 mmol/L (-2.0-3.0)
[2025-06-06 08:01] LABS: Base Excess -3.1 mmol/L (-2.0-3.0)
[2025-06-06] MEDS: ACETAMINOPHEN 325 MG TAB PO PRN (08:08)
--- NOTE | 2025-06-06 09:26 | DVHINCON2 ---
Date of service: Jun 06, 2025 Reason for Consultation ESRD History of Present Illness 70 year old female with past medical history of end-stage renal disease on hemodialysis, hypertension, chronically bed-bound, history of decubitus ulcers, coronary artery disease, recently diagnosed with diffuse lytic bone lesions and probable bilateral parathyroid adenomas presents to the hospital due to severe hypotension during dialysis unable to receive treatment. She was sent to the ER for evaluation is currently noted to be respiratory distress breathing on BiPAP and currently on Levophed due to hypotension Allergies: Coded Allergies: Baclofen (Verified Allergy, Unknown, 11/07/23) Home Meds Active Scripts Morphine Sulfate (MORPHINE SULFATE ER) 30 Mg Cap, 30 MG PO BID for 10 Days, #20 CAP Prov:LUANNE GILL MD 04/23/25 Calcitriol (Calcitriol) 0.5 Mcg Cap, 2 CAP PO DAILY for 30 Days, #60 CAP 3 Refills Prov:LUANNE GILL MD 04/23/25 Ampicillin (Ampicillin) 500 Mg Cap, 1 CAP PO TID for 10 Days, #30 CAP Prov:HATTIE ROLLINS MECHANIC CHIEF 03/16/24 Sulfamethoxazole W/Trimethopri (Bactrim Ds Tablet) 1 Tab Tb, 1 TAB PO BID for 10 Days, #20 TAB Prov:HATTIE ROLLINS NP 03/16/24 Albuterol Sulfate (Albuterol Sulfate) 0.083 % Neb, 1 VIAL NEB Q4HPRN, #50 VIAL 2 Refills Prov:LUANNE GILL MD 11/10/23 Isosorbide Mononitrate (Isosorbide Mononitrate Er) 30 Mg Tab, 1 TAB PO DAILY, #30 TAB Prov:AZAR ALBA MD 09/01/21 Nifedipine (Nifedipine Er) 90 Mg Tab, 1 TAB PO DAILY, #30 TAB Prov:AZAR ALBA MD 09/01/21 Ascorbic Acid (VITAMIN C TABLET) 500 Mg Tb, 500 MG PO BID for 30 Days Prov:DASHAWN PELAEZ MD 09/12/18 Reported Medications Phenylephrine HCl (Topical) (Preparation H) 0.25 % Sup, 0.25 % VA BID for hemorrhoidal pain, SUPP 04/10/25 Fluconazole (Fluconazole) 150 Mg Tab, 1 TAB PO DAILY for 7 Days, #7 MG 11/09/23 Triamcinolone Acetonide (Kenalog) 1 Applic Ap, 1 APPLIC TOP BID 11/09/23 Ondansetron Odt 4MG Tab (ZOFRAN PO) 4 Mg Tb, 1 TAB PO DAILY 11/09/23 Tenapanor HCl (Xphozah) 30 Mg Tab, 1 TAB PO BID 11/09/23 B-Complex W/ C & Folic Acid (Marisela-Tita Rx) Tab, 1 TAB PO DAILY 11/09/23 Lisinopril (Lisinopril) 20 Mg Tab, 1 TAB PO DAILY 11/09/23 Quetiapine Fumerate (Seroquel) 100 Mg Tab, 1 TAB PO DAILY 11/09/23 Hydralazine HCl (Hydralazine HCl) 25 Mg Tab, 1 TAB PO TID 11/07/23 Carvedilol (Carvedilol) 12.5 Mg Tab, 1 TAB PO BID 11/07/23 Oxycodone W/ Acetaminophen (Apap/Oxycodone) 1 Tab Tab, 10-325 MG PO QIDPRN PRN for back pain 08/31/21 Carisoprodol (Soma) 350 Mg Tab, 350 MG PO QID 03/07/19 Clopidogrel Bisulfate (CLOPIDOGREL) 75 Mg Tab, 75 MG PO DAILY 03/07/19 Levothyroxine Sodium (Levothyroxine Sodium) 200 Mcg Tab, 200 MCG PO QAM Dose verified against [facility] record 08/18/18 Docusate Sodium (DOCQLACE) 100 Mg Cap, 100 MG PO TID 08/05/18 Temazepam (Temazepam) 30 Mg Cap, 15 MG PO HS PRN for FOR INSOMNIA 04/17/18 Alprazolam (Xanax) 0.5 Mg Tb, 0.5 TAB PO BID 07/14/17 Cinacalcet Hydrochloride (Sensipar) 60 Mg Tab, 60 MG PO TID Per patient, she takes cinacalcet 60 mg tab, TID before meals. 01/08/16 Sevelamer Carbonate (Renvela) 800 Mg Tab, 2 TAB PO TID 01/08/16 Pantoprazole Sodium Sesquihydr (Protonix) 40 Mg Tab, 40 MG PO DAILY 01/08/16 Doxepin Hcl (Doxepin Hcl) 50 Mg Cap, 3 CAP PO QPM per patient 12/20/12 Atorvastatin Calcium (Lipitor) 10 Mg Tab, 1 TAB PO DAILY 12/20/12 Current Medications Current Medications Medications (Trade) Dose Ordered Sig/Margarito Route PRN Reason Start Time Stop Time Status Last Admin Midazolam HCl 100 ml @ 1 mls/hr Q24H IV 06/05/25 13:45 Norepinephrine Bitartrate 250 ml @ 3.75 mls/hr Q24H IV 06/05/25 15:45 06/05/25 15:30 Azithromycin 250 ml @ 125 mls/hr DAILY IV 06/06/25 10:00 Piperacillin Sod/ Tazobactam Sod 100 ml @ 25 mls/hr Q8HR IV 06/05/25 22:00 06/06/25 05:18 Furosemide (Lasix Injection) 40 mg BIDD IV 06/05/25 18:00 06/06/25 05:19 Ondansetron HCl (Zofran) 4 mg Q4HP PRN IV NAUSEA / VOMITING 06/05/25 16:30 Enoxaparin Sodium (Lovenox) 30 mg DAILY SC 06/06/25 10:00 Acetaminophen (Tylenol Tablet) 650 mg Q6HP PRN PO PAIN SCALE 1-3 OR TEMP>100.4 06/05/25 16:30 06/06/25 08:08 Nitroglycerin (Ntrostat Sublingual) 0.4 mg Q5MINP PRN SL FOR CHEST PAIN 06/05/25 16:30 Morphine Sulfate 2 mg Q30M PRN IV FOR CHEST PAIN 06/05/25 17:00 Albuterol (Ventolin Medneb) 2.5 mg Q4HR NEB 06/05/25 18:00 06/06/25 09:12 Ipratropium [place] (Atrovent Medneb) 0.5 mg Q4HR NEB 06/05/25 18:00 06/06/25 09:12 Epoetin [place]-epbx (Retacrit) 4,000 unit MWF [place] 06/07/25 10:00 UNV Family History: Alcoholism G8 MOTHER Cancer G8 MOTHER (BREAST) G8 FATHER (PROSTATE) G8 SISTER (BREAST) G8 BROTHER G8 BROTHER G8 BROTHER FH: breast cancer G8 MOTHER, Onset:Unknown FH: prostate cancer Family history: Cardiovascular disease G8 FATHER Review of Systems Respiratory distress H&P Exam Vital Signs/I&O Vital Sign Date Time Temp Pulse Resp B/P (MAP) Pulse Ox O2 Delivery O2 Flow Rate FiO2 06/06/25 09:12 91 30 96 06/06/25 08:14 117/69 Facial BiPAP Mask 35 06/06/25 08:08 100.7 Intake and Output 06/05/25 06/06/25 19:00 07:00 Intake Total 100 ml Output Total 0 ml Balance 100 ml Intake Oral 0 ml IV Total 100 ml Output Urine Total 0 ml Stool Total 0 ml Physical Exam Frail malnourished elderly chronically ill-appearing female currently on BiPAP mild tachycardia positive rales, tunneled dialysis catheter Labs/Diagnostic Data Labs/Diagnostic Data Laboratory Tests Test 06/06/25 07:55 06/06/25 06:28 06/06/25 06:08 06/06/25 04:22 Range/Units Blood Gas Specimen Type Arterial Arterial Blood Gas Sample Site Right radial Right radial Blood Gas Patient Temperature 37.0 37.0 Arterial Blood Date Drawn [id number] Arterial Blood pH 7.166 *L 7.142 *L 7.350-7.450 Arterial Blood Partial Pressure CO2 75.4 *H 69.3 *H 32.0-45.0 mmHg Arterial Blood Partial Pressure O2 84.6 89.7 83.0-108.0 mmHg Arterial Blood HCO3 26.6 23.2 21.0-28.0 mmol/L Arterial Blood Oxygen Saturation 95.0 95.4 94.0-98.0 % Arterial Blood Base Excess -3.1 L -6.6 L -2.0-3.0 mmol/L Arterial Blood Oxyhemoglobin 92.6 L 93.2 L 94.0-98.0 % Arterial Blood Carboxyhemoglobin 2.2 H 2.0 H 0.5-1.5 % Arterial Blood Methemoglobin 0.3 0.3 0.0-1.5 % Arterial Blood Deoxyhemoglobin 4.9 4.5 0.0-5.0 % Burke Test Yes Yes Blood Gas Total Hemoglobin 11.20 L 11.30 L 12.0-16.0 g/dL Blood Gas Set Respiration Rate 30.0 12.0 Blood Gas Modality Mask - bipap Mask - bipap FiO2 % 35.0 35.0 Blood Gas EPAP 5 5 Blood Gas IPAP 18 18 Blood Gas Critical Value Read Back yes yes Blood Gas Notified Whom fnps hernandez fnps hernandez Blood Gas Notified Time [id number] Blood Gas Notified By reaming press operator amadeo reaming press operator amadeo White Blood Count 5.7 4.4-10.8 10^3/uL Red Blood Count 3.20 L 4.0-5.20 10^6/uL Hemoglobin 10.5 L 12.2-16.2 g/dL Hematocrit 34.0 L 36.0-46.0 % Mean Corpuscular Volume 106.2 H 80.0-100.0 fL Mean Corpuscular Hemoglobin 32.9 H 28.0-32.0 pg Mean Corpuscular Hemoglobin Concent 31.0 L 32.0-36.0 g/dL Red Cell Distribution Width 18.2 H 11.8-14.3 % Platelet Count 222 140-450 10^3/uL Mean Platelet Volume 9.2 6.9-10.8 fL Neutrophils (%) (Auto) 61.9 37.0-80.0 % Lymphocytes (%) (Auto) 20.8 10.0-50.0 % Monocytes (%) (Auto) 15.8 H 0.0-12.0 % Eosinophils (%) (Auto) 0.4 0.0-7.0 % Basophils (%) (Auto) 1.1 0.0-2.0 % Neutrophils # (Auto) 3.5 1.6-8.6 10 ^3/uL Lymphocytes # (Auto) 1.2 0.4-5.4 10 ^3/uL Monocytes # (Auto) 0.9 0-1.3 10 ^3/uL Eosinophils # (Auto) 0 0-0.8 10 ^3/uL Basophils # (Auto) 0.1 0-0.2 10 ^3/uL Nucleated Red Blood Cells 0.0 % Sodium Level 136 136-145 mmol/L Potassium Level 5.0 3.5-5.1 mmol/L Chloride Level 101 98-107 mmol/L Carbon Dioxide Level 24 20-31 mmol/L Anion Gap 11 5-15 Blood Urea Nitrogen 20 9-23 mg/dL Creatinine 2.91 H 0.550-1.02 mg/dL Glomerular Filtration Rate Calc 17 >90 mL/min BUN/Creatinine Ratio 6.9 L 10.0-20.0 Serum Glucose 96 74-106 mg/dL Calcium Level 8.0 L 8.7-10.4 mg/dL Total Bilirubin < 0.2 L 0.2-1.0 mg/dL Aspartate Amino Transferase (AST) 44 H 13-40 U/L Alanine Aminotransferase (ALT) 10 7-40 U/L Alkaline Phosphatase 376 H 46-116 U/L Total Protein 6.6 5.7-8.2 g/dL Albumin 2.8 L 3.2-4.8 g/dL Test 06/05/25 18:18 06/05/25 16:43 06/05/25 15:48 06/05/25 15:10 Range/Units Blood Gas Specimen Type Arterial Arterial Arterial Blood Gas Sample Site Left radial Left radial Left radial Blood Gas Patient Temperature 37.0 37.0 37.0 Arterial Blood Date Drawn [id number] Arterial Blood pH 7.162 *L 7.135 *L 7.112 *L 7.350-7.450 Arterial Blood Partial Pressure CO2 75.8 *H 72.2 *H 84.3 *H 32.0-45.0 mmHg Arterial Blood Partial Pressure O2 75.4 L 63.9 L 92.8 83.0-108.0 mmHg Arterial Blood HCO3 26.5 23.8 26.3 21.0-28.0 mmol/L Arterial Blood Oxygen Saturation 92.0 L 87.0 L 95.0 94.0-98.0 % Arterial Blood Base Excess -3.3 L -6.1 L -4.4 L -2.0-3.0 mmol/L Arterial Blood Oxyhemoglobin 90.2 L 85.1 L 93.2 L 94.0-98.0 % Arterial Blood Carboxyhemoglobin 1.8 H 1.8 H 1.5 0.5-1.5 % Arterial Blood Methemoglobin 0.2 0.4 0.4 0.0-1.5 % Arterial Blood Deoxyhemoglobin 7.8 H 12.7 H 4.9 0.0-5.0 % Burke Test Modified Yes Yes Blood Gas Total Hemoglobin 11.30 L 10.90 L 10.90 L 12.0-16.0 g/dL Blood Gas Set Respiration Rate 12.0 12.0 12.0 Blood Gas Modality Mask - bipap Mask - bipap Mask - bipap FiO2 % 35.0 30.0 55.0 Blood Gas EPAP 5 5 5 Blood Gas IPAP 18 18 15 Blood Gas Critical Value Read Back Yes Yes Yes Blood Gas Notified Whom cornelia Dodson md Tummala md. Gayla underwood. Blood Gas Notified Time [id number] Blood Gas Notified By elisabeth Garcia rrt A.cruz rrt A.cruz reaming press operator POC Glucose 105 70-106 mg/dl Test 06/05/25 13:44 06/05/25 13:09 06/05/25 12:47 Range/Units White Blood Count 7.1 4.4-10.8 10^3/uL Red Blood Count 3.24 L 4.0-5.20 10^6/uL Hemoglobin 10.5 L 12.2-16.2 g/dL Hematocrit 34.8 L 36.0-46.0 % Mean Corpuscular Volume 107.4 H 80.0-100.0 fL Mean Corpuscular Hemoglobin 32.3 H 28.0-32.0 pg Mean Corpuscular Hemoglobin Concent 30.1 L 32.0-36.0 g/dL Red Cell Distribution Width 18.3 H 11.8-14.3 % Platelet Count 201 140-450 10^3/uL Mean Platelet Volume 9.8 6.9-10.8 fL Neutrophils (%) (Auto) 73.2 37.0-80.0 % Lymphocytes (%) (Auto) 13.8 10.0-50.0 % Monocytes (%) (Auto) 12.0 0.0-12.0 % Eosinophils (%) (Auto) 0.5 0.0-7.0 % Basophils (%) (Auto) 0.5 0.0-2.0 % Neutrophils # (Auto) 5.2 1.6-8.6 10 ^3/uL Lymphocytes # (Auto) 1.0 0.4-5.4 10 ^3/uL Monocytes # (Auto) 0.9 0-1.3 10 ^3/uL Eosinophils # (Auto) 0 0-0.8 10 ^3/uL Basophils # (Auto) 0 0-0.2 10 ^3/uL Nucleated Red Blood Cells 0.2 % Sodium Level 139 136-145 mmol/L Potassium Level 3.7 3.5-5.1 mmol/L Chloride Level 103 98-107 mmol/L Carbon Dioxide Level 27 20-31 mmol/L Anion Gap 9 5-15 Blood Urea Nitrogen 18 9-23 mg/dL Creatinine 2.67 H 0.550-1.02 mg/dL Glomerular Filtration Rate Calc 19 >90 mL/min BUN/Creatinine Ratio 6.7 L 10.0-20.0 Serum Glucose 113 H 74-106 mg/dL Lactic Acid Level 0.5 0.4-2.0 mmol/L Calcium Level 7.6 L 8.7-10.4 mg/dL Troponin I High Sensitivity 76 *H </=34 ng/L B-Type Natriuretic Peptide 195.97 0-100 pg/mL Blood Gas Specimen Type Arterial Blood Gas Sample Site Left radial Blood Gas Patient Temperature 37.0 Arterial Blood Date Drawn [id number] Arterial Blood pH 7.082 *L 7.350-7.450 Arterial Blood Partial Pressure CO2 98.1 *H 32.0-45.0 mmHg Arterial Blood Partial Pressure O2 87.0 83.0-108.0 mmHg Arterial Blood HCO3 28.6 H 21.0-28.0 mmol/L Arterial Blood Oxygen Saturation 93.3 L 94.0-98.0 % Arterial Blood Base Excess -3.3 L -2.0-3.0 mmol/L Arterial Blood Oxyhemoglobin 91.4 L 94.0-98.0 % Arterial Blood Carboxyhemoglobin 1.7 H 0.5-1.5 % Arterial Blood Methemoglobin 0.3 0.0-1.5 % Arterial Blood Deoxyhemoglobin 6.6 H 0.0-5.0 % Burke Test Yes Blood Gas Total Hemoglobin 11.60 L 12.0-16.0 g/dL Blood Gas Liter Flow 10.00 Blood Gas Modality Mask - simple FiO2 % 60.0 Blood Gas Critical Value Read Back Yes Blood Gas Notified Whom Samra todd Blood Gas Notified Time [id number] Blood Gas Notified By Hanane reaming press operator POC Glucose 98 70-106 mg/dl Assessment End-stage renal disease on hemodialysis Shock requiring pressors possibly cardiogenic Anemia due to chronic kidney disease Respiratory failure on BiPAP Protein calorie malnutrition Lytic bone lesions concerning for metastatic bone disease, noted also to have parathyroid hyperplasia/adenoma on last parathyroid scan Levophed to maintain mean arterial pressure greater than 65 hold all BP meds Hemodialysis while on pressors Last echocardiogram in March of this year showed diastolic heart failure consider repeat echocardiogram Renal diet Check phos, PTH, calcium Plan discussed with: Patient HARPREET HAYES MD Jun 06, 2025 09:25
[2025-06-06] MEDS ORDERED: VANCOMYCIN PER PHARMACY 0 MG IV SCH (09:45)
[2025-06-06 10:09] LABS: Iron 41.0 ug/dL (50-170)
[2025-06-06 10:22] LABS: Total Iron Binding Capacity 116.0 ug/dL (250-425)
[2025-06-06] MEDS: VANCOMYCIN 750MG KIT 100 ML IV ONE (10:46)
--- NOTE | 2025-06-06 12:32 | DVHINCON2 ---
Date of service: Jun 05, [address] corea Reason for Consultation copd History of Present Illness HPI pt is a 70 yo AAF with multiple medical problems, JENNI/copd, ESRD, HD and hypotension. Pt was seent in with low BP from HD unit. in the ER pt profoundly lethargic. abg obtained 7.112/ co2=84, P02=84, consistent with resp acidosis, CXR infiltrates and pulm edema, atelectases. pt started on bipap 15/, levophed drip. admit to ICU Home Meds Active Scripts Morphine Sulfate (MORPHINE SULFATE ER) 30 Mg Cap, 30 MG PO BID for 10 Days, #20 CAP Prov:LUANNE GILL MD 04/23/25 Calcitriol (Calcitriol) 0.5 Mcg Cap, 2 CAP PO DAILY for 30 Days, #60 CAP 3 Refills Prov:LUANNE GILL MD 04/23/25 Ampicillin (Ampicillin) 500 Mg Cap, 1 CAP PO TID for 10 Days, #30 CAP Prov:HATTIE ROLLINS SKI TOW OPERATOR 03/16/24 Sulfamethoxazole W/Trimethopri (Bactrim Ds Tablet) 1 Tab Tb, 1 TAB PO BID for 10 Days, #20 TAB Prov:HATTIE ROLLINS SKI TOW OPERATOR 03/16/24 Albuterol Sulfate (Albuterol Sulfate) 0.083 % Neb, 1 VIAL NEB Q4HPRN, #50 VIAL 2 Refills Prov:LUANNE GILL MD 11/10/23 Isosorbide Mononitrate (Isosorbide Mononitrate Er) 30 Mg Tab, 1 TAB PO DAILY, #30 TAB Prov:AZAR ALBA MD 09/01/21 Nifedipine (Nifedipine Er) 90 Mg Tab, 1 TAB PO DAILY, #30 TAB Prov:AZAR ALBA MD 09/01/21 Ascorbic Acid (VITAMIN C TABLET) 500 Mg Tb, 500 MG PO BID for 30 Days Prov:DASHAWN PELAEZ MD 09/12/18 Reported Medications Phenylephrine HCl (Topical) (Preparation H) 0.25 % Sup, 0.25 % OR BID for hemorrhoidal pain, SUPP 04/10/25 Fluconazole (Fluconazole) 150 Mg Tab, 1 TAB PO DAILY for 7 Days, #7 MG 11/09/23 Triamcinolone Acetonide (Kenalog) 1 Applic Ap, 1 APPLIC TOP BID 11/09/23 Ondansetron Odt 4MG Tab (ZOFRAN PO) 4 Mg Tb, 1 TAB PO DAILY 11/09/23 Tenapanor HCl (Xphozah) 30 Mg Tab, 1 TAB PO BID 11/09/23 B-Complex W/ C & Folic Acid (Marisela-Tita Rx) Tab, 1 TAB PO DAILY 11/09/23 Lisinopril (Lisinopril) 20 Mg Tab, 1 TAB PO DAILY 11/09/23 Quetiapine Fumerate (Seroquel) 100 Mg Tab, 1 TAB PO DAILY 11/09/23 Hydralazine HCl (Hydralazine HCl) 25 Mg Tab, 1 TAB PO TID 11/07/23 Carvedilol (Carvedilol) 12.5 Mg Tab, 1 TAB PO BID 11/07/23 Oxycodone W/ Acetaminophen (Apap/Oxycodone) 1 Tab Tab, 10-325 MG PO QIDPRN PRN for back pain 08/31/21 Carisoprodol (Soma) 350 Mg Tab, 350 MG PO QID 03/07/19 Clopidogrel Bisulfate (CLOPIDOGREL) 75 Mg Tab, 75 MG PO DAILY 03/07/19 Levothyroxine Sodium (Levothyroxine Sodium) 200 Mcg Tab, 200 MCG PO QAM Dose verified against [facility] record 08/18/18 Docusate Sodium (DOCQLACE) 100 Mg Cap, 100 MG PO TID 08/05/18 Temazepam (Temazepam) 30 Mg Cap, 15 MG PO HS PRN for FOR INSOMNIA 04/17/18 Alprazolam (Xanax) 0.5 Mg Tb, 0.5 TAB PO BID 07/14/17 Cinacalcet Hydrochloride (Sensipar) 60 Mg Tab, 60 MG PO TID Per patient, she takes cinacalcet 60 mg tab, TID before meals. 01/08/16 Sevelamer Carbonate (Renvela) 800 Mg Tab, 2 TAB PO TID 01/08/16 Pantoprazole Sodium Sesquihydr (Protonix) 40 Mg Tab, 40 MG PO DAILY 01/08/16 Doxepin Hcl (Doxepin Hcl) 50 Mg Cap, 3 CAP PO QPM per patient 12/20/12 Atorvastatin Calcium (Lipitor) 10 Mg Tab, 1 TAB PO DAILY 12/20/12 Past Medical History Cardiac: CHF, HTN Pulmonary: COPD Central Nervous System: No pertinent Hx GI: No pertinent Hx Hemotology/Oncology: No pertinent Hx Hepatobiliary: No pertinent Hx Psychiatric: No pertinent Hx Musculoskeletal: No pertinent Hx Rheumotologic: No pertinent Hx Renal/: ESRD HD/PD Patient Family History: Alcoholism G8 MOTHER Cancer G8 MOTHER (BREAST) G8 FATHER (PROSTATE) G8 SISTER (BREAST) G8 BROTHER G8 BROTHER G8 BROTHER FH: breast cancer G8 MOTHER, Onset:Unknown FH: prostate cancer Family history: Cardiovascular disease G8 FATHER Review of Systems Constitutional: Malaise, Weakness Ears, Nose, & Throat: No symptom reported Eyes: No symptom reported Pulmonary/Respiratory: Dyspnea, Cough Cardiovascular: No symptom reported Gastrointestinal: No symptom reported Genitourinary: No symptom reported Musculoskeletal: No symptom reported Psychiatric: No symptom reported H&P Exam Vital Signs Vital Signs Date Time Temp Pulse Resp B/P (MAP) Pulse Ox O2 Delivery O2 Flow Rate FiO2 06/06/25 12:00 77 91/51 97 Facial BiPAP Mask 35 06/06/25 11:22 11 06/06/25 09:09 99.7 General Appeara: Obese Head Exam: Normal inspection Neck Exam: Normal inspection, Non-tender, Normal alignment Eye Exam: bilateral eye Normal inspection, bilateral eye PERRL, bilateral eye EOMI Ear Exam: bilateral ear Auricle normal, bilateral ear Canal normal Nasal Exam: Normal inspection Mouth: Normal Inspection Pulmonary/Respiratory: Normal inspection, Normal breath sounds, Chest non- tender Cardiovascular/Chest: Normal inspection Peripheral Pulses: 4+ carotid (R), 4+ carotid (L) Abdominal Exam: Normal bowel sounds, Soft Labs/Xrays Labs Test 06/06/25 12:21 06/06/25 07:55 06/06/25 06:09 06/06/25 06:08 Range/Units Blood Gas Specimen Type Arterial Blood Gas Sample Site Right radial Blood Gas Patient Temperature 37.0 Arterial Blood Date Drawn [id number] Arterial Blood pH 7.166 *L 7.350-7.450 Arterial Blood Partial Pressure CO2 75.4 *H 32.0-45.0 mmHg Arterial Blood Partial Pressure O2 84.6 83.0-108.0 mmHg Arterial Blood HCO3 26.6 21.0-28.0 mmol/L Arterial Blood Oxygen Saturation 95.0 94.0-98.0 % Arterial Blood Base Excess -3.1 L -2.0-3.0 mmol/L Arterial Blood Oxyhemoglobin 92.6 L 94.0-98.0 % Arterial Blood Carboxyhemoglobin 2.2 H 0.5-1.5 % Arterial Blood Methemoglobin 0.3 0.0-1.5 % Arterial Blood Deoxyhemoglobin 4.9 0.0-5.0 % Burke Test Yes Blood Gas Total Hemoglobin 11.20 L 12.0-16.0 g/dL Blood Gas Set Respiration Rate 30.0 Blood Gas Modality Mask - bipap FiO2 % 35.0 Blood Gas EPAP 5 Blood Gas IPAP 18 Blood Gas Critical Value Read Back yes Blood Gas Notified Whom drawing checker david Blood Gas Notified Time [id number] Blood Gas Notified By maintenance technician 2nd shift amadeo Iron Level 41 L 50-170 ug/dL Total Iron Binding Capacity 116 L 250-425 ug/dL Percent Iron Saturation 35.3 15-50 % Ferritin 684.3 H 10-291 ng/mL White Blood Count 5.7 4.4-10.8 10^3/uL Red Blood Count 3.20 L 4.0-5.20 10^6/uL Hemoglobin 10.5 L 12.2-16.2 g/dL Hematocrit 34.0 L 36.0-46.0 % Mean Corpuscular Volume 106.2 H 80.0-100.0 fL Mean Corpuscular Hemoglobin 32.9 H 28.0-32.0 pg Mean Corpuscular Hemoglobin Concent 31.0 L 32.0-36.0 g/dL Red Cell Distribution Width 18.2 H 11.8-14.3 % Platelet Count 222 140-450 10^3/uL Mean Platelet Volume 9.2 6.9-10.8 fL Neutrophils (%) (Auto) 61.9 37.0-80.0 % Lymphocytes (%) (Auto) 20.8 10.0-50.0 % Monocytes (%) (Auto) 15.8 H 0.0-12.0 % Eosinophils (%) (Auto) 0.4 0.0-7.0 % Basophils (%) (Auto) 1.1 0.0-2.0 % Neutrophils # (Auto) 3.5 1.6-8.6 10 ^3/uL Lymphocytes # (Auto) 1.2 0.4-5.4 10 ^3/uL Monocytes # (Auto) 0.9 0-1.3 10 ^3/uL Eosinophils # (Auto) 0 0-0.8 10 ^3/uL Basophils # (Auto) 0.1 0-0.2 10 ^3/uL Nucleated Red Blood Cells 0.0 % Test 06/06/25 04:22 06/05/25 15:48 06/05/25 13:44 06/05/25 13:09 Range/Units Sodium Level 136 136-145 mmol/L Potassium Level 5.0 3.5-5.1 mmol/L Chloride Level 101 98-107 mmol/L Carbon Dioxide Level 24 20-31 mmol/L Anion Gap 11 5-15 Blood Urea Nitrogen 20 9-23 mg/dL Creatinine 2.91 H 0.550-1.02 mg/dL Glomerular Filtration Rate Calc 17 >90 mL/min BUN/Creatinine Ratio 6.9 L 10.0-20.0 Serum Glucose 96 74-106 mg/dL Calcium Level 8.0 L 8.7-10.4 mg/dL Total Bilirubin < 0.2 L 0.2-1.0 mg/dL Aspartate Amino Transferase (AST) 44 H 13-40 U/L Alanine Aminotransferase (ALT) 10 7-40 U/L Alkaline Phosphatase 376 H 46-116 U/L Total Protein 6.6 5.7-8.2 g/dL Albumin 2.8 L 3.2-4.8 g/dL POC Glucose 105 70-106 mg/dl Lactic Acid Level 0.5 0.4-2.0 mmol/L B-Type Natriuretic Peptide 195.97 0-100 pg/mL Blood Gas Liter Flow 10.00 Assessment/Plan Plan imp acute hypercapneic resp failure ESRD/HD shock hypotension pneumonia Pt seen and examined in the ER labs and imaging reviewed plan bipap titrate to comfort and 02 sats HD per nephrology monitor labs and lytes replce abx pressors as needed gi and dvt proph observe mental status is tenuous may need to be intubated crti care time 35 min Plan discussed with: Patient MILY GEORGE MD Jun 06, 2025 12:32
--- NOTE | 2025-06-06 12:34 | DVHPN2 ---
Progress Note - Dictate Date Seen: Jun 06, 2025 Has the PT tested + for MRSA If YES, has PT been informed?: No Medical Necessity Reason Pt with a Central, PICC or Fol: No vital signs Vital Sign Date Time Temp Pulse Resp B/P (MAP) Pulse Ox O2 Delivery O2 Flow Rate FiO2 06/06/25 12:00 77 91/51 97 Facial BiPAP Mask 35 06/06/25 11:22 11 06/06/25 09:09 99.7 Total Intake and Output 06/05/25 06/05/25 06/06/25 15:00 23:00 07:00 Intake Total 136.25 ml Output Total 0 ml Balance 136.25 ml medications Current Medications Medications Dose Ordered Sig/Margarito Route Start Time Stop Time Status Last Admin Dose Admin Midazolam HCl 100 ml @ 1 mls/hr Q24H IV 06/05/25 13:45 Norepinephrine Bitartrate 250 ml @ 3.75 mls/hr Q24H IV 06/05/25 15:45 06/05/25 15:30 3.75 MLS/HR Azithromycin 250 ml @ 125 mls/hr DAILY IV 06/06/25 10:00 Piperacillin Sod/ Tazobactam Sod 100 ml @ 25 mls/hr Q8HR IV 06/05/25 22:00 06/06/25 05:18 25 MLS/HR Furosemide 40 mg BIDD IV 06/05/25 18:00 06/06/25 05:19 40 MG Ondansetron HCl 4 mg Q4HP PRN IV 06/05/25 16:30 Enoxaparin Sodium 30 mg DAILY SC 06/06/25 10:00 Acetaminophen 650 mg Q6HP PRN PO 06/05/25 16:30 06/06/25 08:08 650 MG Nitroglycerin 0.4 mg Q5MINP PRN SL 06/05/25 16:30 Morphine Sulfate 2 mg Q30M PRN IV 06/05/25 17:00 Albuterol 2.5 mg Q4HR NEB 06/05/25 18:00 06/06/25 09:12 2.5 MG Ipratropium [place] 0.5 mg Q4HR NEB 06/05/25 18:00 06/06/25 09:12 0.5 MG Epoetin Checo-epbx 4,000 unit MWF SC 06/07/25 10:00 Vancomycin HCl 0 ml @ 0 mls/hr PER PHARMACY IV 06/06/25 09:45 laboratory and microbiology Laboratory Tests 06/06/25 06:08 06/06/25 04:22 Test 06/06/25 04:22 Range/Units Serum Glucose 96 74-106 mg/dL Assessment/Plan Impression Acute hypoxemic respiratory failure Altered mental status acute hypercapnea Morbid obesity Patient seen and examined in the ER Events remains on bipap for hypercapnea abg reviewed persistent dual acidosis due for HD today ok to use levophed Labs and imaging reviewed Chest x-ray shows right lower lobe infiltrates consistent with pneumonia Management Supplemental oxygen Titrate to maintain sats 90% or above bipap Antibiotics Obtain cultures Bronchodilators Monitor renal function Monitor electrolytes Supplement as needed DVT prophylaxis crit care time 35 min Plan discussed with: Patient MILY GEORGE MD Jun 06, 2025 12:34
[2025-06-06] MEDS: ENOXAPARIN SOD 30 MG/0.3 ML SYRINGE SC SCH (12:41)
[2025-06-06] MEDS: SODIUM CHL 0.9% 1000 ML BAG XX ONE (13:20)
[2025-06-06] MEDS: methylPREDNISolone SOD SUCC 125 MG/2 ML VL IV ONE (13:31)
[2025-06-06] MEDS: AZITHROMYCIN 500MG/250ML 250 ML IV SCH (13:32)
[2025-06-06 15:00] LABS: Base Excess 1.3 mmol/L (-2.0-3.0)
[2025-06-06 16:09] LABS: INR 1.2 (0.9-1.15); Partial Thromboplastin Time 35.2 SEC (24.5-34.5); Prothrombin Time 12.5 sec (9.3-11.8)
[2025-06-06 16:15] LABS: COVID19 ANTIGEN SOFIA FIA NEGATIVE (NEGATIVE)
--- NOTE | 2025-06-06 17:30 | DVHPNRES ---
Progress Note Date Seen: Jun 06, 2025 Resident Creating Document: JOSUE JJ RESIDENT Has the PT tested + for MRSA If YES, has PT been informed?: No Medical Necessity Reason Pt with a Central, PICC or Fol: No Subjective Review of Systems Patient is a 70-year-old female with past medical history of paraplegia since 2018, CHF, COPD, ESRD on hemodialysis, came to the ED with chief complaints of shortness of breath, low blood pressure after dialysis yesterday. EMS gave 2 L of NS and placed patient on 2 L oxygen. Patient uses 2 L home oxygen, Patient is very weak, lethargic, has generalized weakness and as per daughter is not able to move her arms as before. Patient denies any cancer in the past. Patient recently was in [place] and was found to have blood clot in her left arm. As per patient patient does not want to be intubated but she is okay with BiPAP and vasopressors and CPR. Past surgical history: Back surgery for cyst removal in 2018, ventral umbilical hernia repair, hemorrhoid ectomy, tonsillectomy, I and D for decubitus ulcer. Family history: Breast colon cancer in mother, colon cancer in father Social history: Smoked in the past and has quit, ex drinker, denies drug use Lives with: Daughter Constitutional: fever and chills. HEENT: Denies changes in vision and hearing. Respiratory : Has shortness of breath Cardiovascular: Denies chest discomfort or palpitations GI: no abdominal distention. : Denies dysuria and urinary frequency. Musculoskeletal: Denies myalgias and joint pain Skin: Denies rash and pruritus. Neurological: Denies dizziness, headache, vision or hearing problems 06/06/2025: Patient seen at bedside. Patient was on BiPAP at 18/5. Patient had a temperature T-max of 100. Patient was given methylprednisolone 125. Lumbar CT spine ordered. 2D echo ordered. Patient is to be kept at 88-92 % Saturation. As per daughter patient is on home oxygen 3 L and has never had cancer before. As per daughter she wants everything to be done but patient is alert and oriented x4 and does not want to be intubated, But is okay with BiPAP, vasopressors and CPR. dialysis done today with removal of 2.5 L. Patient is off Levophed since 8:00 a.m. this morning. Objective vital signs Vital Sign Date Time Temp Pulse Resp B/P (MAP) Pulse Ox O2 Delivery O2 Flow Rate FiO2 06/06/25 16:09 94 Oxymizer 4 35 35 06/06/25 16:00 94 15 120/61 (80) 06/06/25 12:00 98.7 98.7 Total Intake and Output 06/05/25 06/05/25 06/06/25 15:00 23:00 07:00 Intake Total 136.25 ml Output Total 0 ml Balance 136.25 ml medications Current Medications Medications Dose Ordered Sig/Margarito Route Start Time Stop Time Status Last Admin Dose Admin Midazolam HCl 100 ml @ 1 mls/hr Q24H IV 06/05/25 13:45 Norepinephrine Bitartrate 250 ml @ 3.75 mls/hr Q24H IV 06/05/25 15:45 06/05/25 15:30 3.75 MLS/HR Azithromycin 250 ml @ 125 mls/hr DAILY IV 06/06/25 10:00 06/06/25 13:32 125 MLS/HR Ondansetron HCl 4 mg Q4HP PRN IV 06/05/25 16:30 Acetaminophen 650 mg Q6HP PRN PO 06/05/25 16:30 06/06/25 08:08 650 MG Nitroglycerin 0.4 mg Q5MINP PRN SL 06/05/25 16:30 Morphine Sulfate 2 mg Q30M PRN IV 06/05/25 17:00 Albuterol 2.5 mg Q4HR NEB 06/05/25 18:00 06/06/25 13:22 2.5 MG Ipratropium [place] 0.5 mg Q4HR NEB 06/05/25 18:00 06/06/25 13:22 0.5 MG Epoetin [place]-epbx 4,000 unit MWF SC 06/07/25 10:00 Vancomycin HCl 0 ml @ 0 mls/hr PER PHARMACY IV 06/06/25 09:45 Heparin Sodium (Porcine) 5,000 units Q12HR SC 06/06/25 22:00 Furosemide 60 mg BIDD IV 06/06/25 18:00 Methylprednisolone Sodium Succinate 40 mg BID IV 06/06/25 22:00 Piperacillin Sod/ Tazobactam Sod 100 ml @ 25 mls/hr Q12HR IV 06/06/25 22:00 Examination General: Patient alert and oriented in person, place and time. Patient following commands. HEENT: Normocephalic, atraumatic, moist mucous membranes Respiratory/pulmonary: Clear lungs bilaterally, vesicular murmurs present in almost all lung franklin, no associated crackles or wheezes. Cardiovascular: Normal heart sounds S1 and S2 with no associated murmurs Abdomen: Abdomen nondistended, there is no pain to palpation in any of the abdominal quadrants, no palpable masses. Extremities: There is no peripheral edema present at the lower extremities. Peripheral Pulses: 3+ Radial (R). 3+ Radial (L). 3+ Dorsalis pedis (R). 3+ Dorsalis pedis(L) Skin: No rashes or pruritus, there is no sacral edema present at this time. Neurological: Intact cranial nerves with no focal neurologic deficits laboratory and microbiology Laboratory Tests 06/06/25 06:08 06/06/25 04:22 Test 06/06/25 04:22 Range/Units Serum Glucose 96 74-106 mg/dL Microbiology Date/Time Source Procedure Growth Status 06/05/25 13:44 Blood Blood Culture - Preliminary NO GROWTH AFTER 24 HOURS OF INCUBATION. Resulted Problem List/Assessment/Plan Problem List/Assessment/Plan Sepsis likely due to pneumonia, Gram-positive was Gram-negative Acute hypoxic and hypercapnic respiratory failure Acute encephalopathy likely due to hypercapnia Acute on chronic CHF exacerbation, HFpEF Hypertensive heart disease with diastolic dysfunction NSTEMI type 2 likely due to above Small bilateral pleural effusion History of COPD - head CT showed No acute intracranial abnormality. - Lumbar CT ordered - IV vancomycin, Zosyn, azithromycin - IV methylprednisolone 40 mg - albuterol, ipratropium med neb - on BiPAP - repeat ABG - Trops elevated - echo ordered - chest x-ray showed Cardiomegaly. Small bilateral pleural effusion and multifocal consolidative opacities. - COVID, influenza negative - intermittent BiPAP - patient is to be kept at 88 -92% saturation ESRD on hemodialysis( M/W/F) - consulted nephrology - dialysis done today anemia of chronic disease - EPOetin - monitor labs - iron, ferritin history of paraplegia - morphine - lumbar CT ordered obesity BMI 43.1 - patient counseled on diet DVT prophylaxis: heparin Goals of care addressed with the patient for more than 27 minutes: Full code status Case discussed with Dr. Girard , patient and nurse Plan discussed with: Patient, Daughter My Orders My Orders Orders - JOSUE JJ Procedure Category Date Status Time Mrsa Screen PAMELA 06/06/25 In Process 09:34 Respiratory Culture PAMELA 06/06/25 Logged W/ Gs 09:34 Vancomycin Per PHA 06/06/25 In Process Pharmacy 09:45 Venous Blood Gas RT 06/06/25 Logged 10:13 Vancomycin,Random LAB 06/07/25 Verified 04:00 Abg W/ Co-Ox RT 06/06/25 Logged 14:56 Ls Spine Wo Contrast CT 06/06/25 Taken 15:43 Communication Order ORDERS 06/06/25 Transmitted 15:50 Bipap/Cpap For Sleep RT 06/06/25 Logged Apnea 15:50 Abg W/ Co-Ox RT 06/07/25 Logged 04:00 Venous Blood Gas RT 06/06/25 Logged 20:50 Cardiac DIET 06/06/25 Transmitted Diet-2gna,Lofat,Lochol Dinner Date of Service: Jun 06, 2025 Billing Provider: BASILIO GIRARD MD Common Visit Codes: [id number] INP/OBS CARE(HIGH) JOSUE JJ Jun 06, 2025 17:30 BASILIO GIRARD MD Jun 07, 2025 21:25
[2025-06-06] MEDS: FUROSEMIDE 40 MG/4 ML VIAL IV SCH (18:00)
--- NOTE | 2025-06-06 19:53 | DVH ---
EXAM: CT LS SPINE WO CONTRAST HISTORY: r/o mets COMPARISON: MRI L-SPINE W & WO on DOS: 12/07/23, LS2CT on DOS: 11/16/21 CTDIvol 24.69 mGy, DLP 966.0 mGy*cm. TECHNIQUE: Multiple axial CT images of the spine were obtained using bone algorithm. Axial and coronal reformatting was done. Bone and soft tissue windows were reviewed. FINDINGS: Bones are severely demineralized, limiting assessment. Extensive lytic metastatic disease diffusely throughout the visualized lower thoracic and lumbar spine as well as diffusely throughout the bony pelvis, essentially replacing a large majority of the normal marrow and cortex. Pathologic compression fracture at L5, difficult to assess due to little residual normal cortex. IMPRESSION: Extensive lytic metastatic disease versus other marrow replacing etiologies such as brown tumors combined with severe osteopenia which makes assessment difficult. Essentially all spinal levels as well as the vertebral body appears involved. Pathologic compression fracture at L5, difficult to characterize as there is very little residual normal cortex. MRI would better assess.
[2025-06-06] MEDS: methylPREDNISolone SOD SUCC 40 MG/ML VL IV SCH (22:26)
[2025-06-06] MEDS: HEPARIN SODIUM (PORCINE) 5000 UNITS/ML 1ML VIAL SC SCH (22:27)
[2025-06-06] MEDS: PIPERACILLIN-TAZOB 3.375GM 100 ML IV SCH (22:48)
[2025-06-07] VITALS (21 sets, daily range): BP systolic 104–150; BP diastolic 55–87; PULSE 70–98; RESP 16–20; TEMP 97.6–99.4; O2SAT 92–100
[2025-06-07] MEDS: HYDROcodone-ACET 5/325MG TAB PO PRN (06:28)
[2025-06-07 07:01] LABS: Hematocrit 30.4 % (36.0-46.0); Hemoglobin 9.2 g/dL (12.2-16.2); Mean Corpuscular Hemoglobin 32.3 pg (28.0-32.0); Mean Corpuscular Volume 106.4 fL (80.0-100.0); Nucleated Red Blood Cells % 0.1 %
[2025-06-07 07:28] LABS: Anion Gap 12 (5-15); BUN/Creatinine Ratio 7.3 (10.0-20.0); Blood Urea Nitrogen 20 mg/dL (9-23); Carbon Dioxide 29 mmol/L (20-31); Chloride 99 mmol/L (98-107); Glucose 104 mg/dL (74-106); Sodium 140 mmol/L (136-145); Total Protein 6.2 g/dL (5.7-8.2)
[2025-06-07 07:36] LABS: Alanine Aminotransferase < 9 U/L (7-40); Albumin 2.7 g/dL (3.2-4.8); Alkaline Phosphatase 371 U/L (46-116); Bilirubin, Total < 0.2 mg/dL (0.2-1.0); Calcium 8.4 mg/dL (8.7-10.4); Potassium 3.2 mmol/L (3.5-5.1)
[2025-06-07] MEDS: POTASSIUM EFFERVESENT TAB 25 MEQ PO ONE (08:15)
[2025-06-07 09:30] LABS: Base Excess 1.0 mmol/L (-2.0-3.0)
[2025-06-07] MEDS: EPOETIN ALFA-EPBX 4,000 UNIT/ML VIAL SC SCH (10:00)
[2025-06-07 10:49] LABS: Hepatitis B Surface Antigen Negative (Negative); Hepatitis C Antibody Negative (Negative)
[2025-06-07] MEDS ORDERED: OXYCODONE W/ ACETAMINOPHEN 5/325MG TABLET PO PRN ×2 (13:15→15:15)
[2025-06-07] MEDS: PIPERACILLIN-TAZOB 3.375GM 100 ML IV SCH (14:00)
[2025-06-07] MEDS: VANCOMYCIN 1GM/250ML KIT 250 ML IV ONE (15:00)
--- NOTE | 2025-06-07 15:39 | DVHPN2 ---
Progress Note - Dictate Date Seen: Jun 07, 2025 Has the PT tested + for MRSA If YES, has PT been informed?: No Medical Necessity Reason Pt with a Central, PICC or Fol: No vital signs Vital Sign Date Time Temp Pulse Resp B/P (MAP) Pulse Ox O2 Delivery O2 Flow Rate FiO2 06/07/25 14:33 95 20 100 06/07/25 14:29 Nasal Cannula* 2 28 06/07/25 13:00 98.0 124/61 (82) 98.0 Total Intake and Output 06/06/25 06/06/25 06/07/25 14:59 22:59 06:59 Intake Total 193.75 ml 250 ml 400 ml Balance 193.75 ml 250 ml 400 ml medications Current Medications Medications Dose Ordered Sig/Margarito Route Start Time Stop Time Status Last Admin Dose Admin Azithromycin 250 ml @ 125 mls/hr DAILY IV 06/06/25 10:00 06/07/25 10:00 125 MLS/HR Ondansetron HCl 4 mg Q4HP PRN IV 06/05/25 16:30 Acetaminophen 650 mg Q6HP PRN PO 06/05/25 16:30 06/07/25 01:02 650 MG Albuterol 2.5 mg Q4HR NEB 06/05/25 18:00 06/07/25 14:28 2.5 MG Ipratropium [place] 0.5 mg Q4HR NEB 06/05/25 18:00 06/07/25 14:28 0.5 MG Epoetin Checo-epbx 4,000 unit MWF SC 06/07/25 10:00 06/07/25 10:00 4,000 UNIT Vancomycin HCl 0 ml @ 0 mls/hr PER PHARMACY IV 06/06/25 09:45 Heparin Sodium (Porcine) 5,000 units Q12HR SC 06/06/25 22:00 06/07/25 10:00 5,000 UNITS Methylprednisolone Sodium Succinate 40 mg BID IV 06/06/25 22:00 06/07/25 10:00 40 MG Furosemide 60 mg BIDD IV 06/07/25 18:00 Piperacillin Sod/ Tazobactam Sod 100 ml @ 25 mls/hr Q12H IV 06/07/25 14:00 laboratory and microbiology Laboratory Tests 06/07/25 05:48 Test 06/07/25 05:48 Range/Units Serum Glucose 104 74-106 mg/dL Assessment/Plan Impression Acute hypoxemic respiratory failure Altered mental status acute hypercapnia Morbid obesity Patient seen and examined Events Low oxygen requirements On 2 liters nasal cannula No acute events Labs and imaging reviewed Management Supplemental oxygen Titrate to maintain sats 90% or above Prn bipap Continue antibiotics F/u cultures Bronchodilators Monitor renal function Monitor electrolytes Supplement as needed DVT prophylaxis Plan discussed with: Patient MILY GEORGE MD Jun 07, 2025 15:39
--- NOTE | 2025-06-07 16:32 | DVHPN2 ---
Progress Note Date Seen: Jun 07, 2025 Has the PT tested + for MRSA If YES, has PT been informed?: No Medical Necessity Reason Pt with a Central, PICC or Fol: No Subjective Patient reports: Feels better Review of Systems: Deferred Objective vital signs Vital Sign Date Time Temp Pulse Resp B/P (MAP) Pulse Ox O2 Delivery O2 Flow Rate FiO2 06/07/25 14:33 95 20 100 06/07/25 14:29 Nasal Cannula* 2 28 06/07/25 13:00 98.0 124/61 (82) 98.0 Total Intake and Output 06/06/25 06/06/25 06/07/25 15:00 23:00 07:00 Intake Total 157.50 ml 250 ml 400 ml Balance 157.50 ml 250 ml 400 ml medications Current Medications Medications Dose Ordered Sig/Margarito Route Start Time Stop Time Status Last Admin Dose Admin Azithromycin 250 ml @ 125 mls/hr DAILY IV 06/06/25 10:00 06/07/25 10:00 125 MLS/HR Ondansetron HCl 4 mg Q4HP PRN IV 06/05/25 16:30 Acetaminophen 650 mg Q6HP PRN PO 06/05/25 16:30 06/07/25 01:02 650 MG Albuterol 2.5 mg Q4HR NEB 06/05/25 18:00 06/07/25 14:28 2.5 MG Ipratropium [place] 0.5 mg Q4HR NEB 06/05/25 18:00 06/07/25 14:28 0.5 MG Epoetin Checo-epbx 4,000 unit MWF SC 06/07/25 10:00 06/07/25 10:00 4,000 UNIT Vancomycin HCl 0 ml @ 0 mls/hr PER PHARMACY IV 06/06/25 09:45 Heparin Sodium (Porcine) 5,000 units Q12HR SC 06/06/25 22:00 06/07/25 10:00 5,000 UNITS Methylprednisolone Sodium Succinate 40 mg BID IV 06/06/25 22:00 06/07/25 10:00 40 MG Furosemide 60 mg BIDD IV 06/07/25 18:00 Piperacillin Sod/ Tazobactam Sod 100 ml @ 25 mls/hr Q12H IV 06/07/25 14:00 06/07/25 14:00 25 MLS/HR Examination: GENERAL:Abnormal, LUNGS:Abnormal, CVS:Abnormal, MSK:Abnormal, SKIN:Abnormal laboratory and microbiology Laboratory Tests 06/07/25 05:48 Test 06/07/25 05:48 Range/Units Serum Glucose 104 74-106 mg/dL Microbiology Date/Time Source Procedure Growth Status 06/06/25 15:25 Nose MRSA Screen - Final Methicillin Resistant S.aureus Complete 06/05/25 13:44 Blood Blood Culture - Preliminary NO GROWTH AFTER 48 HOURS OF INCUBATION. Resulted Problem List/Assessment/Plan Problem List/Assessment/Plan End-stage renal disease on hemodialysis Shock requiring pressors possibly cardiogenic Anemia due to chronic kidney disease Respiratory failure on BiPAP Protein calorie malnutrition Lytic bone lesions concerning for metastatic bone disease, noted also to have parathyroid hyperplasia/adenoma on last parathyroid scan Hemodialysis while admitted tentative tomorrow Renal diet Continue to hold blood pressure medication Epogen 3 times a week Plan discussed with: Patient HARPREET HAYES MD Jun 07, 2025 16:32
--- NOTE | 2025-06-07 16:56 | DVHPNRES ---
Progress Note Date Seen: Jun 07, 2025 Resident Creating Document: JOSUE JJ RESIDENT Has the PT tested + for MRSA If YES, has PT been informed?: No Medical Necessity Reason Pt with a Central, PICC or Fol: No Subjective Review of Systems Patient is a 70-year-old female with past medical history of paraplegia since 2018, CHF, COPD, ESRD on hemodialysis, came to the ED with chief complaints of shortness of breath, low blood pressure after dialysis yesterday. EMS gave 2 L of NS and placed patient on 2 L oxygen. Patient uses 2 L home oxygen, Patient is very weak, lethargic, has generalized weakness and as per daughter is not able to move her arms as before. Patient denies any cancer in the past. Patient recently was in [place] and was found to have blood clot in her left arm. As per patient patient does not want to be intubated but she is okay with BiPAP and vasopressors and CPR. Past surgical history: Back surgery for cyst removal in 2018, ventral umbilical hernia repair, hemorrhoid ectomy, tonsillectomy, I and D for decubitus ulcer. Family history: Breast colon cancer in mother, colon cancer in father Social history: Smoked in the past and has quit, ex drinker, denies drug use Lives with: Daughter Constitutional: fever and chills. HEENT: Denies changes in vision and hearing. Respiratory : Has shortness of breath Cardiovascular: Denies chest discomfort or palpitations GI: no abdominal distention. : Denies dysuria and urinary frequency. Musculoskeletal: Denies myalgias and joint pain Skin: Denies rash and pruritus. Neurological: Denies dizziness, headache, vision or hearing problems 06/06/2025: Patient seen at bedside. Patient was on BiPAP at 18/5. Patient had a temperature T-max of 100. Patient was given methylprednisolone 125. Lumbar CT spine ordered. 2D echo ordered. Patient is to be kept at 88-92 % Saturation. As per daughter patient is on home oxygen 3 L and has never had cancer before. As per daughter she wants everything to be done but patient is alert and oriented x4 and does not want to be intubated, But is okay with BiPAP, vasopressors and CPR. dialysis done today with removal of 2.5 L. Patient is off Levophed since 8:00 a.m. this morning. 06/07/2025: Patient seen at bedside. Patient is on 4 L Oxymizer. Lumbar x-ray showed Extensive lytic metastatic disease versus other marrow replacing etiologies such as brown tumors combined with severe osteopenia which makes assessment difficult. Essentially all spinal levels as well as the vertebral body appears involved. Objective vital signs Vital Sign Date Time Temp Pulse Resp B/P (MAP) Pulse Ox O2 Delivery O2 Flow Rate FiO2 06/07/25 16:29 97.8 97 20 140/69 (92) 97 97.8 06/07/25 14:29 Nasal Cannula* 2 28 Total Intake and Output 06/06/25 06/06/25 06/07/25 15:00 23:00 07:00 Intake Total 157.50 ml 250 ml 400 ml Balance 157.50 ml 250 ml 400 ml medications Current Medications Medications Dose Ordered Sig/Margarito Route Start Time Stop Time Status Last Admin Dose Admin Azithromycin 250 ml @ 125 mls/hr DAILY IV 06/06/25 10:00 06/07/25 10:00 125 MLS/HR Ondansetron HCl 4 mg Q4HP PRN IV 06/05/25 16:30 Acetaminophen 650 mg Q6HP PRN PO 06/05/25 16:30 06/07/25 01:02 650 MG Albuterol 2.5 mg Q4HR NEB 06/05/25 18:00 06/07/25 14:28 2.5 MG Ipratropium [place] 0.5 mg Q4HR NEB 06/05/25 18:00 06/07/25 14:28 0.5 MG Epoetin Checo-epbx 4,000 unit MWF SC 06/07/25 10:00 06/07/25 10:00 4,000 UNIT Vancomycin HCl 0 ml @ 0 mls/hr PER PHARMACY IV 06/06/25 09:45 Heparin Sodium (Porcine) 5,000 units Q12HR SC 06/06/25 22:00 06/07/25 10:00 5,000 UNITS Methylprednisolone Sodium Succinate 40 mg BID IV 06/06/25 22:00 06/07/25 10:00 40 MG Furosemide 60 mg BIDD IV 06/07/25 18:00 Piperacillin Sod/ Tazobactam Sod 100 ml @ 25 mls/hr Q12H IV 06/07/25 14:00 06/07/25 14:00 25 MLS/HR Examination General: Patient alert and oriented in person, place and time. Patient following commands. HEENT: Normocephalic, atraumatic, moist mucous membranes Respiratory/pulmonary: Clear lungs bilaterally, vesicular murmurs present in almost all lung franklin, no associated crackles or wheezes. Cardiovascular: Normal heart sounds S1 and S2 with no associated murmurs Abdomen: Abdomen nondistended, there is no pain to palpation in any of the abdominal quadrants, no palpable masses. Extremities: There is no peripheral edema present at the lower extremities. Peripheral Pulses: 3+ Radial (R). 3+ Radial (L). 3+ Dorsalis pedis (R). 3+ Dorsalis pedis(L) Skin: Left AV fistula Neurological: Intact cranial nerves with no focal neurologic deficits laboratory and microbiology Laboratory Tests 06/07/25 05:48 Test 06/07/25 05:48 Range/Units Serum Glucose 104 74-106 mg/dL Microbiology Date/Time Source Procedure Growth Status 06/06/25 15:25 Nose MRSA Screen - Final Methicillin Resistant S.aureus Complete 06/05/25 13:44 Blood Blood Culture - Preliminary NO GROWTH AFTER 48 HOURS OF INCUBATION. Resulted Problem List/Assessment/Plan Problem List/Assessment/Plan Sepsis likely due to pneumonia, Gram-positive was Gram-negative Acute hypoxic and hypercapnic respiratory failure Acute encephalopathy likely due to hypercapnia Acute on chronic CHF exacerbation, HFpEF Hypertensive heart disease with diastolic dysfunction NSTEMI type 2 likely due to above Small bilateral pleural effusion History of COPD - head CT showed No acute intracranial abnormality. - Lumbar CT ordered - IV vancomycin, Zosyn, azithromycin - IV methylprednisolone 40 mg - albuterol, ipratropium med neb - on BiPAP - repeat ABG - Trops elevated - echo ordered - chest x-ray showed Cardiomegaly. Small bilateral pleural effusion and multifocal consolidative opacities. - COVID, influenza negative - intermittent BiPAP - patient is to be kept at 88 -92% saturation ESRD on hemodialysis( M/W/F) - consulted nephrology - dialysis done today anemia of chronic disease - EPOetin - monitor labs - iron, ferritin history of paraplegia - morphine - lumbar CT ordered obesity BMI 43.1 - patient counseled on diet DVT prophylaxis: heparin Goals of care addressed with the patient for more than 27 minutes: Full code status Case discussed with Dr. Girard , patient and nurse Plan discussed with: Patient My Orders My Orders Orders - JOSUE JJ Procedure Category Date Status Time Vancomycin,Random LAB 06/08/25 Verified 04:00 Complete Blood Count LAB 06/08/25 Verified 04:00 Creatinine LAB 06/08/25 Verified 04:00 Oxycodone W/ Acet PHA 06/07/25 In Process 5/325mg Tab (Percocet 15:15 Date of Service: Jun 07, 2025 Billing Provider: BASILIO GIRARD MD Common Visit Codes: [id number] INP/OBS CARE(HIGH) JOSUE JJ Jun 07, 2025 16:56 BASILIO GIRARD MD Jun 07, 2025 21:25
[2025-06-07] MEDS: FUROSEMIDE 100 MG/10ML VIAL IV SCH (18:00)
[2025-06-07] MEDS: OXYCODONE W/ ACETAMINOPHEN 5/325MG TABLET PO ONE (21:24)
[2025-06-08] VITALS (11 sets, daily range): BP systolic 127–154; BP diastolic 9–85; PULSE 82–104; RESP 14–20; TEMP 97.8–99.6; O2SAT 2–100
[2025-06-08 05:24] LABS: Hematocrit 32.3 % (36.0-46.0); Hemoglobin 10.1 g/dL (12.2-16.2); Mean Corpuscular Hemoglobin 32.4 pg (28.0-32.0); Mean Corpuscular Volume 103.8 fL (80.0-100.0); Nucleated Red Blood Cells % 0.1 %
[2025-06-08 05:55] LABS: Potassium 3.8 mmol/L (3.5-5.1); Sodium 137 mmol/L (136-145)
[2025-06-08 05:56] LABS: Anion Gap 13 (5-15); Carbon Dioxide 26 mmol/L (20-31)
[2025-06-08 05:57] LABS: Calcium 8.4 mg/dL (8.7-10.4); Chloride 98 mmol/L (98-107)
[2025-06-08 06:01] LABS: BUN/Creatinine Ratio 9.0 (10.0-20.0)
[2025-06-08 06:03] LABS: Blood Urea Nitrogen 27 mg/dL (9-23); Glucose 123 mg/dL (74-106)
[2025-06-08] MEDS ORDERED: SODIUM CHL 0.9% 1000 ML BAG XX ONE (07:15)
[2025-06-08] MEDS: OXYCODONE W/ ACETAMINOPHEN 5/325MG TABLET PO PRN (10:13)
--- NOTE | 2025-06-08 10:24 | DVHPN2 ---
Progress Note Date Seen: Jun 08, 2025 Has the PT tested + for MRSA If YES, has PT been informed?: No Medical Necessity Reason Pt with a Central, PICC or Fol: No Subjective Changes from previous H/P or p: No Changes Objective vital signs Vital Sign Date Time Temp Pulse Resp B/P (MAP) Pulse Ox O2 Delivery O2 Flow Rate FiO2 06/08/25 09:52 90 14 100 06/08/25 09:46 Nasal Cannula 3.0 06/08/25 09:46 32 06/08/25 06:26 132/72 06/08/25 05:00 98.3 98.3 Total Intake and Output 06/07/25 06/07/25 06/08/25 15:00 23:00 07:00 Intake Total 600 ml 100 ml Output Total 0 ml Balance 600 ml 100 ml medications Current Medications Medications Dose Ordered Sig/Margarito Route Start Time Stop Time Status Last Admin Dose Admin Azithromycin 250 ml @ 125 mls/hr DAILY IV 06/06/25 10:00 06/07/25 10:00 125 MLS/HR Ondansetron HCl 4 mg Q4HP PRN IV 06/05/25 16:30 Acetaminophen 650 mg Q6HP PRN PO 06/05/25 16:30 06/08/25 08:05 650 MG Albuterol 2.5 mg Q4HR NEB 06/05/25 18:00 06/08/25 09:44 2.5 MG Ipratropium [place] 0.5 mg Q4HR NEB 06/05/25 18:00 06/08/25 09:44 0.5 MG Epoetin Checo-epbx 4,000 unit MWF SC 06/07/25 10:00 06/07/25 10:00 4,000 UNIT Vancomycin HCl 0 ml @ 0 mls/hr PER PHARMACY IV 06/06/25 09:45 Heparin Sodium (Porcine) 5,000 units Q12HR SC 06/06/25 22:00 06/07/25 21:12 5,000 UNITS Methylprednisolone Sodium Succinate 40 mg BID IV 06/06/25 22:00 06/07/25 21:13 40 MG Furosemide 60 mg BIDD IV 06/07/25 18:00 06/08/25 06:26 60 MG Piperacillin Sod/ Tazobactam Sod 100 ml @ 25 mls/hr Q12H IV 06/07/25 14:00 06/08/25 01:20 25 MLS/HR Oxycodone/ Acetaminophen 1 tab Q4HP PRN PO 06/08/25 09:15 06/08/25 10:13 1 TAB Examination: GENERAL:Abnormal, CVS:Normal, SKIN:Normal laboratory and microbiology Laboratory Tests 06/08/25 04:46 Test 06/08/25 04:46 Range/Units Serum Glucose 123 H 74-106 mg/dL Microbiology Date/Time Source Procedure Growth Status 06/06/25 15:25 Nose MRSA Screen - Final Methicillin Resistant S.aureus Complete 06/05/25 13:44 Blood Blood Culture - Preliminary NO GROWTH AFTER 48 HOURS OF INCUBATION. Resulted Problem List/Assessment/Plan Problem List/Assessment/Plan End-stage renal disease on hemodialysis Shock requiring pressors possibly cardiogenic Anemia due to chronic kidney disease Respiratory failure on BiPAP Protein calorie malnutrition Lytic bone lesions concerning for metastatic bone disease, noted also to have parathyroid hyperplasia/adenoma on last parathyroid scan Hemodialysis today Renal diet Continue to hold blood pressure medication Epogen 3 times a week Plan discussed with: Patient My Orders My Orders Orders - HARPREET HAYES MD Procedure Category Date Status Time Hemodialysis Orders ORDERS 06/08/25 Transmitted 07:05 Dialysis Nursing [facility] 06/08/25 In Process Message 07:05 Document Fluid Input [facility] 06/08/25 In Process And Outpu 07:05 Dietary Evaluation Review Comments: consider Nepro oral supplementation BID consider Kali PO BID for wound healing Expected Outcomes/Goals: gradually healed wounds Body Fat Depletion (Non Severe: Mild Depletion Muscle mass (Non-Severe): Mild Depletion (Moderate) Fluid Accumulation (Severe): Moderate Fluid Retention Protein Calorie Malnutrition: Severe Is there a minimum of two crit: Yes HARPREET HAYES MD Jun 08, 2025 10:24
[2025-06-08] MEDS ORDERED: diphenhydrAMINE HCL 50 MG/1 ML VL ONE (11:26)
[2025-06-08] MEDS: diphenhydrAMINE HCL 50 MG/1 ML VL IV ONE (11:27)
--- NOTE | 2025-06-08 12:28 | DVHPN2 ---
Progress Note - Dictate Date Seen: Jun 08, 2025 Has the PT tested + for MRSA If YES, has PT been informed?: No Medical Necessity Reason Pt with a Central, PICC or Fol: No vital signs Vital Sign Date Time Temp Pulse Resp B/P (MAP) Pulse Ox O2 Delivery O2 Flow Rate FiO2 06/08/25 09:52 90 14 100 06/08/25 09:46 Nasal Cannula 3.0 06/08/25 09:46 32 06/08/25 09:00 99.6 127/72 (90) 99.6 Total Intake and Output 06/07/25 06/07/25 06/08/25 15:00 23:00 07:00 Intake Total 600 ml 100 ml Output Total 0 ml Balance 600 ml 100 ml medications Current Medications Medications Dose Ordered Sig/Margarito Route Start Time Stop Time Status Last Admin Dose Admin Azithromycin 250 ml @ 125 mls/hr DAILY IV 06/06/25 10:00 06/07/25 10:00 125 MLS/HR Ondansetron HCl 4 mg Q4HP PRN IV 06/05/25 16:30 Acetaminophen 650 mg Q6HP PRN PO 06/05/25 16:30 06/08/25 08:05 650 MG Albuterol 2.5 mg Q4HR NEB 06/05/25 18:00 06/08/25 09:44 2.5 MG Ipratropium Moody 0.5 mg Q4HR NEB 06/05/25 18:00 06/08/25 09:44 0.5 MG Epoetin Checo-epbx 4,000 unit MWF SC 06/07/25 10:00 06/07/25 10:00 4,000 UNIT Vancomycin HCl 0 ml @ 0 mls/hr PER PHARMACY IV 06/06/25 09:45 Heparin Sodium (Porcine) 5,000 units Q12HR SC 06/06/25 22:00 06/07/25 21:12 5,000 UNITS Methylprednisolone Sodium Succinate 40 mg BID IV 06/06/25 22:00 06/07/25 21:13 40 MG Furosemide 60 mg BIDD IV 06/07/25 18:00 06/08/25 06:26 60 MG Piperacillin Sod/ Tazobactam Sod 100 ml @ 25 mls/hr Q12H IV 06/07/25 14:00 06/08/25 01:20 25 MLS/HR Oxycodone/ Acetaminophen 1 tab Q4HP PRN PO 06/08/25 09:15 06/08/25 10:13 1 TAB laboratory and microbiology Laboratory Tests 06/08/25 04:46 Test 06/08/25 04:46 Range/Units Serum Glucose 123 H 74-106 mg/dL Assessment/Plan Impression Acute hypoxemic respiratory failure Altered mental status acute hypercapnia Morbid obesity Patient seen and examined Events Low oxygen requirements On 2 liters nasal cannula No acute events Labs and imaging reviewed Management Supplemental oxygen Titrate to maintain sats 90% or above Prn bipap Continue antibiotics F/u cultures Bronchodilators Monitor renal function Monitor electrolytes Supplement as needed DVT prophylaxis Dietary Evaluation Review Comments: consider Nepro oral supplementation BID consider Kali PO BID for wound healing Expected Outcomes/Goals: gradually healed wounds Body Fat Depletion (Non Severe: Mild Depletion Muscle mass (Non-Severe): Mild Depletion (Moderate) Fluid Accumulation (Severe): Moderate Fluid Retention Protein Calorie Malnutrition: Severe Is there a minimum of two crit: Yes Plan discussed with: Patient MILY GEORGE MD Jun 08, 2025 12:28
[2025-06-08] MEDS ORDERED: AUG875T PO (13:43)
[2025-06-08] MEDS ORDERED: AZIT500T66 PO (13:43)
--- NOTE | 2025-06-08 15:19 | DVHDSRES ---
Discharge Summary Date of Admission Resident Creating Document: JOSUE JJ Jun 05, 2025 at 16:30 Date of Discharge: Jun 08, 2025 Admitting Diagnosis Sepsis likely due to pneumonia, Gram-positive was Gram-negative Labs/Diagnostic Data: Laboratory Results Test 06/08/25 04:46 06/07/25 09:20 06/07/25 05:48 06/06/25 20:55 White Blood Count 5.4 10^3/uL (4.4-10.8) Red Blood Count 3.12 10^6/uL (4.0-5.20) Hemoglobin 10.1 g/dL (12.2-16.2) Hematocrit 32.3 % (36.0-46.0) Mean Corpuscular Volume 103.8 fL (80.0-100.0) Mean Corpuscular Hemoglobin 32.4 pg (28.0-32.0) Mean Corpuscular Hemoglobin Concent 31.2 g/dL (32.0-36.0) Red Cell Distribution Width 18.3 % (11.8-14.3) Platelet Count 194 10^3/uL (140-450) Mean Platelet Volume 9.3 fL (6.9-10.8) Neutrophils (%) (Auto) 81.5 % (37.0-80.0) Lymphocytes (%) (Auto) 9.3 % (10.0-50.0) Monocytes (%) (Auto) 9.0 % (0.0-12.0) Eosinophils (%) (Auto) 0.0 % (0.0-7.0) Basophils (%) (Auto) 0.2 % (0.0-2.0) Neutrophils # (Auto) 4.4 10 ^3/uL (1.6-8.6) Lymphocytes # (Auto) 0.5 10 ^3/uL (0.4-5.4) Monocytes # (Auto) 0.5 10 ^3/uL (0-1.3) Eosinophils # (Auto) 0 10 ^3/uL (0-0.8) Basophils # (Auto) 0 10 ^3/uL (0-0.2) Nucleated Red Blood Cells 0.1 % Sodium Level 137 mmol/L (136-145) Potassium Level 3.8 mmol/L (3.5-5.1) Chloride Level 98 mmol/L (98-107) Carbon Dioxide Level 26 mmol/L (20-31) Anion Gap 13 (5-15) Blood Urea Nitrogen 27 mg/dL (9-23) Creatinine 3.00 mg/dL (0.550-1.02) Glomerular Filtration Rate Calc 16 mL/min (>90) BUN/Creatinine Ratio 9.0 (10.0-20.0) Serum Glucose 123 mg/dL (74-106) Calcium Level 8.4 mg/dL (8.7-10.4) Random Vancomycin Level 16.1 ug/mL (5-10) Blood Gas Specimen Type Arterial Blood Gas Sample Site Right radial Blood Gas Patient Temperature 37.0 Arterial Blood Date Drawn [id number] Arterial Blood pH 7.249 (7.350-7.450) Arterial Blood Partial Pressure CO2 68.7 mmHg (32.0-45.0) Arterial Blood Partial Pressure O2 95.5 mmHg (83.0-108.0) Arterial Blood HCO3 29.4 mmol/L (21.0-28.0) Arterial Blood Oxygen Saturation 96.5 % (94.0-98.0) Arterial Blood Base Excess 1.0 mmol/L (-2.0-3.0) Arterial Blood Oxyhemoglobin 95.0 % (94.0-98.0) Arterial Blood Carboxyhemoglobin 1.5 % (0.5-1.5) Arterial Blood Methemoglobin 0.1 % (0.0-1.5) Arterial Blood Deoxyhemoglobin 3.4 % (0.0-5.0) Burke Test Yes Blood Gas Total Hemoglobin 10.60 g/dL (12.0-16.0) Blood Gas Modality Oxymizer FiO2 % 41.0 Blood Gas PEEP or CPAP 4.0 Blood Gas Critical Value Read Back Yes Blood Gas Notified Whom yina Silva md. Blood Gas Notified Time [id number] Blood Gas Notified By charlotte Alex Phosphorus Level 5.0 mg/dL (2.4-5.1) Total Bilirubin < 0.2 mg/dL (0.2-1.0) Aspartate Amino Transferase (AST) 9 U/L (13-40) Alanine Aminotransferase (ALT) < 9 U/L (7-40) Alkaline Phosphatase 371 U/L (46-116) Total Protein 6.2 g/dL (5.7-8.2) Albumin 2.7 g/dL (3.2-4.8) Parathyroid Hormone (Intact) > 2000.0 pg/mL (18.4-80.1) Venous Blood pH 7.234 (7.320-7.430) Venous Blood pCO2 at Patient Temp 35.3 mmHg (38.0-54.0) Venous Blood pO2 at Patient Temp 58.1 mmHg (23.0-48.0) Venous Blood HCO3 14.6 mmol/L (22.0-29.0) Venous Blood Base Excess -11.9 mmol/L (-2.0-3.0) Blood Gas Set Respiration Rate 24.0 Blood Gas Spontaneous Rate 24 Blood Gas Tidal Volume 397.0 Blood Gas Spontaneous Tidal Volume 395 Blood Gas EPAP 5 Blood Gas IPAP 20 Specimen Drawn By jose Suárez rn Test 06/06/25 15:25 06/06/25 15:16 06/06/25 12:21 06/06/25 06:09 Influenza Type A Antigen Negative (Negative) Influenza Type B Antigen Negative (Negative) SARS-CoV-2 Antigen (Rapid) Negative (NEGATIVE) Prothrombin Time 12.5 sec (9.3-11.8) Prothrombin Time INR 1.20 (0.9-1.15) Activated Partial Thromboplast Time 35.2 SEC (24.5-34.5) Troponin I High Sensitivity 170 ng/L (</=34) Iron Level 41 ug/dL (50-170) Total Iron Binding Capacity 116 ug/dL (250-425) Percent Iron Saturation 35.3 % (15-50) Ferritin 684.3 ng/mL (10-291) Hepatitis A IgM Antibody Negative Hepatitis B Surface Antigen Negative (Negative) Hepatitis B Core IgM Antibody Negative (Negative) Hepatitis C Antibody Negative (Negative) Test 06/05/25 15:48 06/05/25 13:44 06/05/25 13:09 POC Glucose 105 mg/dl (70-106) Lactic Acid Level 0.5 mmol/L (0.4-2.0) B-Type Natriuretic Peptide 195.97 pg/mL (0-100) Blood Gas Liter Flow 10.00 Other Laboratory Tests 06/08/25 04:46 Brief Hx & Hospital Course: Patient is a 70-year-old female with past medical history of paraplegia since 2018, CHF, COPD, ESRD on hemodialysis, came to the ED with chief complaints of shortness of breath, low blood pressure after dialysis yesterday. EMS gave 2 L of NS and placed patient on 2 L oxygen. Patient uses 2 L home oxygen, Patient is very weak, lethargic, has generalized weakness and as per daughter is not able to move her arms as before. Patient denies any cancer in the past. Patient recently was in [facility] and was found to have blood clot in her left arm. As per patient patient does not want to be intubated but she is okay with BiPAP and vasopressors and CPR. Past surgical history: Back surgery for cyst removal in 2018, ventral umbilical hernia repair, hemorrhoid ectomy, tonsillectomy, I and D for decubitus ulcer. Family history: Breast colon cancer in mother, colon cancer in father Social history: Smoked in the past and has quit, ex drinker, denies drug use Lives with: Daughter Brief hospital course : Patient came to the hospital with shortness of breath and low blood pressure after dialysis. Patient had sepsis likely due to pneumonia, acute on chronic hypoxic respiratory failure, acute encephalopathy likely due to hypercapnia, NSTEMI type 2, Head CT was done which showed no acute abnormality. Lumbar CT showed Extensive lytic metastatic disease versus other marrow replacing etiologies such as brown tumors combined with severe osteopenia which makes assessment difficult. Essentially all spinal levels as well as the vertebral body appears involved. patient was started on IV vancomycin, azithromycin, Zosyn. Patient was started on albuterol, ipratropium med nebs and was on BiPAP initially at 8 L with Oxymizer. Which was then brought down to 4 and then down to 2 L nasal cannula. Patient's ABG was repeated every day. Echo was ordered, chest x-ray showed cardiomegaly with small bilateral pleural effusion and multifocal opacities. COVID and influenza tests were negative. Patient was kept on intermittent BiPAP. Patient had dialysis and Nephrology was consulted. Patient has anemia of chronic disease for which Epogen, labs were monitored. Patient has a history of paraplegia for which lumbar CT was ordered. Patient clinically 3 L oxygen discharge patient is to follow-up with discharge Clinic, take oral antibiotics for 7 days. Patient and daughter were explained in great detail that patient states she is DNI. patient's daughter explained that patient is still follow-up with nephrology and discharge Clinic. Patient is to take Augmentin 875 mg 7 days General: Patient alert and oriented in person, place and time. Patient following commands. HEENT: Normocephalic, atraumatic, moist mucous membranes Respiratory/pulmonary: Clear lungs bilaterally, vesicular murmurs present in almost all lung franklin, no associated crackles or wheezes. Cardiovascular: Normal heart sounds S1 and S2 with no associated murmurs Abdomen: Abdomen nondistended, there is no pain to palpation in any of the abdominal quadrants, no palpable masses. Extremities: There is no peripheral edema present at the lower extremities. Peripheral Pulses: 3+ Radial (R). 3+ Radial (L). 3+ Dorsalis pedis (R). 3+ Dorsalis pedis(L) Skin: Left AV fistula Neurological: Intact cranial nerves with no focal neurologic deficits Operations or Procedures EXAM: XY CHEST PORTABLE Indication: sob Technique: Single frontal view of the chest was obtained Comparison: XY CHEST XRAY 1 VIEW on DOS: 04/20/25, CT CHEST WITHOUT CONTRAST on DOS: 04/09/25, XY CHEST PORTABLE on DOS: 04/09/25, XY CHEST PORTABLE on DOS: 04/07/25, XY CHEST PORTABLE on DOS: 04/05/25 FINDINGS: Lines and Tubes: Left central venous catheter tip projects over cavoatrial junction. Lungs: Small bilateral pleural effusion and multifocal consolidative opacities. Cardiomediastinal contours: Cardiomegaly. Atherosclerotic vascular calcifications of the thoracic aorta are noted. Bones: No acute osseous abnormality. IMPRESSION: Cardiomegaly.Small bilateral pleural effusion and multifocal consolidative opacities. ATED BY: KALYAN HASSAN MD DICTATED DATE/TIME: 06/05/25 1304 SIGNED BY: KALYAN HASSAN MD SIGNED DATE/TIME: 06/05/25 1304 CC: '' ORDERING PHYSICIAN: ENEIDA DOBBS PROCEDURE(s): HWOCT - HEAD WITHOUT CONTRAST REASON: [facility] ORDER NUMBER(s): [id number], ACCESSION NUMBER(s): [id number] EXAM: CT HEAD WITHOUT CONTRAST INDICATION: ams TECHNIQUE: CT of the head without intravenous contrast. Radiation Dose Information: CT Dose: CTDI volume is 60.53 mGy. Dose-length product is 1070.03 mGy*cm The dose indicators for CT are the volume Computed Tomography (CT) Dose Index (CTDIvol) and the Dose Length Product (DLP), and are measured in units of mGy and mGy-cm, respectively. These indicators are not patient dose, but values generated from the CT scanner acquisition factors. The report includes radiation exposure data for exposures received during this examination. COMPARISON: CT HEAD WITHOUT CONTRAST on DOS: 05/29/23, HEAD WITHOUT CONTRAST on DOS: 11/16/21 FINDINGS: There is no evidence of acute intracranial hemorrhage, extra-axial collection, mass effect, midline shift, herniation or hydrocephalus. The ventricles, sulci and cisterns are age appropriate. The rodriguez-white differentiation is intact. Patchy periventricular and subcortical white matter hypoattenuation is nonspecific but may be related to small vessel ischemic disease. The visualized paranasal sinuses and mastoid air cells are clear. Bones are diffusely sclerotic. IMPRESSION: No acute intracranial abnormality. ATED BY: BRAEDEN RG MD DICTATED DATE/TIME: 06/05/252101 ORDERING PHYSICIAN: JOSUE JJ RESIDENT PROCEDURE(s): LS2CT - LS SPINE WO CONTRAST REASON: r/o mets ORDER NUMBER(s): [id number], ACCESSION NUMBER(s): [id number] EXAM: CT LS SPINE WO CONTRAST HISTORY: r/o mets COMPARISON: MRI L-SPINE W & WO on DOS: 12/07/23, LS2CT on DOS: 11/16/21 CTDIvol 24.69 mGy, DLP 966.0 mGy*cm. TECHNIQUE: Multiple axial CT images of the spine were obtained using bone algorithm. Axial and coronal reformatting was done. Bone and soft tissue windows were reviewed. FINDINGS: Bones are severely demineralized, limiting assessment. Extensive lytic metastatic disease diffusely throughout the visualized lower thoracic and lumbar spine as well as diffusely throughout the bony pelvis, essentially replacing a large majority of the normal marrow and cortex. Pathologic compression fracture at L5, difficult to assess due to little residual normal cortex. IMPRESSION: Extensive lytic metastatic disease versus other marrow replacing etiologies such as brown tumors combined with severe osteopenia which makes assessment difficult. Essentially all spinal levels as well as the vertebral body appears involved. Pathologic compression fracture at L5, difficult to characterize as there is very little residual normal cortex. MRI would better assess. ATED BY: BRAEDEN RG MD DICTATED DATE/TIME: 06/06/251950 Condition at Discharge: Fair Final Diagnosis/Problems List Sepsis likely due to pneumonia, Gram-positive was Gram-negative Acute hypoxic and hypercapnic respiratory failure Acute encephalopathy likely due to hypercapnia Acute on chronic CHF exacerbation, HFpEF Hypertensive heart disease with diastolic dysfunction NSTEMI type 2 likely due to above Small bilateral pleural effusion History of COPD ESRD on hemodialysis( M/W/F) anemia of chronic disease history of paraplegia obesity BMI 43.1 Discharge Disposition: Home Discharge Instruct/Medications Diet: Cardiac 2g Na,low cholest, Renal Activity: No Restrictions, As Tolerated Follow Up/Referral: Follow-up with discharge Clinic Medications: As per EMR Scheduled Albuterol Sulfate (Albuterol Sulfate), 1 VIAL NEB Q4HPRN Alprazolam (Xanax), 0.5 TAB PO BID, (Reported) Amoxicillin & Pot Clavulanate (Augmentin Tablet), 875 MG PO BID Ascorbic Acid (Vitamin C Tablet), 500 MG PO BID Atorvastatin Calcium (Lipitor), 1 TAB PO DAILY, (Reported) Azithromycin (Azithromycin), 500 MG PO DAILY B-Complex W/ C & Folic Acid (Marisela-Tita Rx), 1 TAB PO DAILY, (Reported) Calcitriol (Calcitriol), 2 CAP PO DAILY Carisoprodol (Soma), 350 MG PO QID, (Reported) Carvedilol (Carvedilol), 1 TAB PO BID, (Reported) Cinacalcet Hydrochloride (Sensipar), 60 MG PO TID, (Reported) Clopidogrel Bisulfate (Clopidogrel), 75 MG PO DAILY, (Reported) Docusate Sodium (Docqlace), 100 MG PO TID, (Reported) Doxepin Hcl (Doxepin Hcl), 3 CAP PO QPM, (Reported) Fluconazole (Fluconazole), 1 TAB PO DAILY, (Reported) Hydralazine HCl (Hydralazine HCl), 1 TAB PO TID, (Reported) Isosorbide Mononitrate (Isosorbide Mononitrate Er), 1 TAB PO DAILY Levothyroxine Sodium (Levothyroxine Sodium), 200 MCG PO QAM, (Reported) Lisinopril (Lisinopril), 1 TAB PO DAILY, (Reported) Morphine Sulfate (Morphine Sulfate Er), 30 MG PO BID Nifedipine (Nifedipine Er), 1 TAB PO DAILY Ondansetron Odt 4MG Tab (Zofran Po), 1 TAB PO DAILY, (Reported) Pantoprazole Sodium Sesquihydr (Protonix), 40 MG PO DAILY, (Reported) Phenylephrine HCl (Topical) (Preparation H), 0.25 % KS BID, (Reported) Quetiapine Fumerate (Seroquel), 1 TAB PO DAILY, (Reported) Sevelamer Carbonate (Renvela), 2 TAB PO TID, (Reported) Sulfamethoxazole W/Trimethopri (Bactrim Ds Tablet), 1 TAB PO BID Tenapanor HCl (Xphozah), 1 TAB PO BID, (Reported) Triamcinolone Acetonide (Kenalog), 1 APPLIC TOP BID, (Reported) Scheduled PRN Oxycodone W/ Acetaminophen (Apap/Oxycodone), 10-325 MG PO QIDPRN PRN for back pain, (Reported) Temazepam (Temazepam), 15 MG PO HS PRN for FOR INSOMNIA, (Reported) Discontinued Medications Ampicillin (Ampicillin), 1 CAP PO TID Discharge Statement: "Patient was advised to return to the ER or call 911 if any headaches, dizziness, shortness of breath, chest pain, abdominal pain, bleeding, fevers, or worsening of medical condition. Patient was counseled about treatment plan, medications, possible side effects, patientverbalized understanding. All questions were answered to the best of my ability. This discharge took greater then 30 minutes in planning, reviewing documentation, counseling the patient, and discussing with other team members." ASSESSMENT ASSESSMENT Assessment Acute on chronic respiratory failure Date of Service: Jun 08, 2025 Billing Provider: BASILIO MCCONNELL MD Common Visit Codes: 33510-ZGU/OBS DISCH DAY >30min JOSUE JJ Jun 08, 2025 15:19 BASILIO MCCONNELL MD Jun 08, 2025 22:43
[2025-06-08] MEDS: VANCOMYCIN 750MG KIT 100 ML IV ONE (18:16)
== END 2025-06-08 19:45 | disposition home or self-care (01) | DRG 871 ==
LOC: ER 12:27 → EDBD 12:27 → OVERFLOW 16:30 → TELE-EAST 06-06 18:30
PROC: 02HV33Z Insertion of Infusion Device into Superior Vena Cava, Percutaneous Approach (ICD-10-PCS; principal; 2025-06-05)
PROC: B548ZZA Ultrasonography of Superior Vena Cava, Guidance (ICD-10-PCS; 2025-06-05)
PROC: 5A09357 Assistance with Respiratory Ventilation, Less than 24 Consecutive Hours, Continuous Positive Airway Pressure (ICD-10-PCS; 2025-06-05)
PROC: 5A09357 Assistance with Respiratory Ventilation, Less than 24 Consecutive Hours, Continuous Positive Airway Pressure (ICD-10-PCS; 2025-06-06)
PROC: 5A1D70Z Performance of Urinary Filtration, Intermittent, Less than 6 Hours Per Day (ICD-10-PCS; 2025-06-06)
PROC: 5A09357 Assistance with Respiratory Ventilation, Less than 24 Consecutive Hours, Continuous Positive Airway Pressure (ICD-10-PCS; 2025-06-07)
PROC: 5A1D70Z Performance of Urinary Filtration, Intermittent, Less than 6 Hours Per Day (ICD-10-PCS; 2025-06-08)
DX: A41.59 Other Gram-negative sepsis (principal); E43 Unspecified severe protein-calorie malnutrition; J96.01 Acute respiratory failure with hypoxia; J96.02 Acute respiratory failure with hypercapnia; I50.33 Acute on chronic diastolic (congestive) heart failure; J15.69 Pneumonia due to other Gram-negative bacteria; J15.9 Unspecified bacterial pneumonia; N18.6 End stage renal disease; R57.0 Cardiogenic shock; I13.2 Hypertensive heart and chronic kidney disease with heart failure and with stage 5 chronic kidney disease, or end stage renal disease; G93.40 Encephalopathy, unspecified; J44.0 Chronic obstructive pulmonary disease with (acute) lower respiratory infection; Z99.2 Dependence on renal dialysis; Z79.02 Long term (current) use of antithrombotics/antiplatelets; D53.9 Nutritional anemia, unspecified; E66.01 Morbid (severe) obesity due to excess calories; F31.9 Bipolar disorder, unspecified; E87.29 Other acidosis; Z68.41 Body mass index [BMI] 40.0-44.9, adult; Z20.822 Contact with and (suspected) exposure to COVID-19; D63.1 Anemia in chronic kidney disease; I25.10 Atherosclerotic heart disease of native coronary artery without angina pectoris; Z99.81 Dependence on supplemental oxygen; Z82.49 Family history of ischemic heart disease and other diseases of the circulatory system; Z80.3 Family history of malignant neoplasm of breast; Z80.0 Family history of malignant neoplasm of digestive organs; Z79.899 Other long term (current) drug therapy; Z74.01 Bed confinement status; I25.2 Old myocardial infarction; Z79.2 Long term (current) use of antibiotics; Z87.891 Personal history of nicotine dependence
CPT/HCPCS: 36415; 36556; 36600; 70450; 71045; 72131; 80048; 80053; 80074; 80202; 82728; 82805; 82962; 83540; 83550; 83605; 83880; 83970; 84100; 84484; 85025; 85610; 85730; 87040; 87081; 87426; 87804; 90935; 93005; 94640; 94660; 96365; 96366; 96375; 99291; 99292; G0378; J1642; J2543